=== PATIENT | male | born 1950 | race Caucasian/White ===

== ENCOUNTER → 2016-08-15 | Outpatient (CLI) | payer MEDICARE, OTHER ==
[2016-08-15 12:42] LABS: Anisocytosis Moderate; Aty Lym Flag Slight; CH 34.8; CHCM 30.9; HDW 3.71; HGB 11.6 gm/dL (13.0-17.5); Hypochromasia Marked; MCH 35.1 pg (25.0-35.0); MCHC 31.3 g/dL (31.0-37.0); MCV 111.9 fL (80.0-100.0); Macrocytosis Marked; Mean Platelet Volume 8.3; Poikilocytosis Slight; RBC 3.31 m/uL (4.30-5.90); RDW 21.7 % (11.5-15.5); WBC (Perox) 6.34
[2016-08-15 14:33] LABS: Carbamazepine (Tegretol) 11.5 ug/mL
[2016-08-15 14:38] LABS: Add Differential Manual Differential
[2016-08-15 14:42] LABS: Nucleated Red Blood Cells 1 /100 WBC (0-0); Total Cells Counted 200
[2016-08-15 14:44] LABS: Manual Review Performed; WBC 5.8 k/uL (3.8-10.6)
[2016-08-15 14:45] LABS: Stomatocytes Present
== END ==
LOC: LABWHC1 11:44
PROVIDERS: ATTEND Psychiatry & Neurology Neurology
DX: G40.209 Localization-related (focal) (partial) symptomatic epilepsy and epileptic syndromes with complex partial seizures, not intractable, without status epilepticus (principal)
CPT/HCPCS: 36415; 80156; 80164; 84450; 84460; 85025

== ENCOUNTER 2017-03-02 19:42 | Inpatient (IN) | payer MEDICARE, OTHER ==
--- NOTE | 2017-03-02 22:01 | XR ---
EXAMINATION TYPE: XR chest 1V portable DATE OF EXAM: 03/02/2017 COMPARISON: 07/24/2014 HISTORY: Follow-up pneumothorax TECHNIQUE: Single frontal view of the chest is obtained. FINDINGS: There is general coarsening of interstitial pulmonary markings. I see no pneumothorax. The re is a left chest tube noted at the left lung base.. There are chest leads. Trachea is midline. IMPRESSION: Pulmonary interstitial fibrosis. There is interstitial pulmonary infiltrates with some c oalescence in the left lower lobe that is worse than last exam. No definite pneumothorax seen. Left c hest tube appears in good position.
[2017-03-02] MEDS ORDERED: NALOXONE 0.4 MG/ML 1 ML VIAL IV PRN (22:09)
[2017-03-02] MEDS ORDERED: ACETAMINOPHEN TAB 325 MG TAB PO PRN (22:09)
[2017-03-02] MEDS ORDERED: METOPROLOL SUCCINATE (ER) 25 MG TAB.ER.24H PO STA (22:32)
[2017-03-02] MEDS: HYDROmorphone 1 MG/ML 1 ML SYRINGE IVP PRN (23:20)
[2017-03-02] MEDS: DIVALPROEX 500 MG TABLET.DR PO SCH (23:42)
[2017-03-02] MEDS: carBAMazepine 400 MG TAB.ER.12H PO SCH (23:42)
[2017-03-02] MEDS: HEPARIN SODIUM,PORCINE 5,000 UNIT/ML 1 ML VIAL SQ SCH (23:43)
[2017-03-02 23:52] LABS: Glucose,Whole Blood 173 mg/dL (75-99)
[2017-03-03] MEDS: HYDROcodone/APAP 5-325MG 1 EACH TAB PO PRN ×3 (01:26→21:05)
[2017-03-03 04:47] LABS: INR 1.3 (<1.2); Prothrombin Time 12.8 sec (9.0-12.0)
[2017-03-03 04:49] LABS: Anisocytosis Moderate; CH 34.8; HCT 29.3 % (39.0-53.0); HDW 3.81; HGB 9.3 gm/dL (13.0-17.5); Hypochromasia Marked; MCH 35.5 pg (25.0-35.0); MCHC 31.8 g/dL (31.0-37.0); MCV 111.7 fL (80.0-100.0); Macrocytosis Marked; Mean Platelet Volume 8.1; Poikilocytosis Slight; RBC 2.62 m/uL (4.30-5.90); WBC (Perox) 4.97
[2017-03-03 05:06] LABS: ALT 31 U/L (21-72); AST 15 U/L (17-59); Alkaline Phosphatase 47 U/L (38-126); Anion Gap 7 mmol/L; Blood Urea Nitrogen 27 mg/dL (9-20); Calcium 8.4 mg/dL (8.4-10.2); Carbon Dioxide 22 mmol/L (22-30); Chloride 106 mmol/L (98-107); Glucose 109 mg/dL (74-99); Magnesium 1.6 mg/dL (1.6-2.3); Non-African American GFR(MDRD) >60 (>60 ml/min/1.73 sqM); Phosphorus 4.4 mg/dL (2.5-4.5); Potassium 5.5 mmol/L (3.5-5.1); Sodium 135 mmol/L (137-145); Total Bilirubin 0.3 mg/dL (0.2-1.3)
[2017-03-03 05:22] LABS: Add Differential Manual Differential
[2017-03-03 05:28] LABS: Manual Review Performed; Myelocytes % 2 %; Nucleated Red Blood Cells 2 /100 WBC (0-0); Total Cells Counted 200
[2017-03-03 05:31] LABS: Polychromasia Present; Target Cells Present
[2017-03-03] MEDS ORDERED: Magnesium Replacement Protocol 1 EACH MISC MISCELLANE PRN (05:41)
[2017-03-03] MEDS: SODIUM CHLORIDE 0.9% 1,000 ML IV SCH (06:17)
[2017-03-03] MEDS: MAGNESIUM SULFATE-D5W PMX 1 GM in DEXTROSE/WATER 1 100ML.BAG IVPB SCH ×2 (06:18→07:54)
[2017-03-03 07:27] LABS: Glucose,Whole Blood 207 mg/dL (75-99)
[2017-03-03] MEDS: HEPARIN SODIUM,PORCINE 5,000 UNIT/ML 1 ML VIAL SQ SCH (07:55)
[2017-03-03] MEDS: INSULIN LISPRO (humaLOG) 300 UNIT/3 ML VIAL SQ SCH ×4 (07:55→20:56)
[2017-03-03] MEDS: AZITHROMYCIN 500 MG TAB PO SCH (07:55)
[2017-03-03] MEDS: carBAMazepine 400 MG TAB.ER.12H PO SCH ×2 (07:56→20:57)
[2017-03-03] MEDS: DIVALPROEX 500 MG TABLET.DR PO SCH ×2 (07:56→20:58)
[2017-03-03] MEDS: FAMOTIDINE 20 MG/2 ML VIAL IV SCH ×2 (07:56→20:57)
[2017-03-03] MEDS: BUDESONIDE 0.5 MG/2 ML NEBU INHALATION SCH ×2 (07:57→19:20)
[2017-03-03] MEDS: METOPROLOL SUCCINATE (ER) 25 MG TAB.ER.24H PO SCH (07:57)
[2017-03-03] MEDS: predniSONE 20 MG TAB PO SCH (08:09)
[2017-03-03] MEDS: HYDROmorphone 1 MG/ML 1 ML SYRINGE IVP PRN ×5 (08:10→23:46)
[2017-03-03] MEDS: ENOXAPARIN 40 MG/0.4 ML SYRINGE SQ SCH ×2 (08:10→20:58)
--- NOTE | 2017-03-03 08:26 | P.GSCN ---
<Dennise Galeas - Last Filed: 03/03/17 07:59> History of Present Illness Consult date: 03/03/17 Reason for Consult: Left pneumothorax, left upper lobe nodule, treatment recommendations. Requesting physician: Rico Nazario History of present illness: This 67-year-old gentleman was transferred from [facility] last night. Apparently he had a CT guided lung biopsy by Dr. Nazario, developed a pneumothorax, a pigtail drain was placed and patient was subsequently transferred to [facility] for observation and treatment. He does have a significant history of seizure disorder, chronic atrial fibrillation for which he is on no anticoagulation, myocardial infarction at 38 years old, CVA approximated 12 years ago, colon cancer with resection but no chemotherapy or radiation, right lung nodule which was supposed to be biopsied but the patient did not follow up, and a family history of lung cancer. Per Dr. Nazario the patient was started on Zithromax, ceftriaxone, and prednisone for pneumonia. Cardiothoracic surgery was consulted regarding treatment options for his lung nodule. Review of Systems 14 point review systems was completed and was negative except as noted. - Respiratory Reports cough, Reports dyspnea, Reports hemoptysis, Reports home oxygen - Musculoskeletal Musculoskeleta Comment(s): Minimal residual right-sided weakness post stroke. - Hematologic/Lymphatic Reports easy bleeding Past Medical History Past Medical History: Atrial Fibrillation, Cancer, Chest Pain / Angina, COPD, CVA/TIA, GERD/Reflux, GI Bleed, Hyperlipidemia, Hypertension, Myocardial Infarction (MS), Musculoskeletal Disorder, Renal Disease, Seizure Disorder Additional Past Medical History / Comment(s): 07/21/14 Pt states he was admitted on 07/17/14 and had colonoscopy then laparoscopic sigmoid colectomy for adenocarcinoma was performed on 07/19/14. Other HX: colon cancer found during colonoscopy-polyp which was adenocarcinoma, ULCER; EPILEPTIC - STATES LAST SEIZURE PREV TO 1994; CVA - AFFECTS SPEECH/able to print but not write in cursive. UNABLE TO COMPLETELY CLOSE LEFT HAND R/T hx of LARGE LACERATION. HX OF RT HIP DISORDER, WORE CAST, THEN BRACE FOR 2 YRS, chronic low back pain, renal cysts and kidney stones, GI bleed associated with anticoaulation. Has home O2 which he uses when necessary Last Myocardial Infarction Date:: patient reports 19 years ago History of Any Multi-Drug Resistant Organisms: None Reported Past Surgical History: Orthopedic Surgery Additional Past Surgical History / Comment(s): 07/19/14 Laparoscopic sigmoid colectomy. LEFT HAND SX, EXC VILMA CATARACTS; COLONOSCOPY 05/26/14. Past Anesthesia/Blood Transfusion Reactions: No Reported Reaction Past Psychological History: No Psychological Hx Reported Smoking Status: Former smoker Past Alcohol Use History: Rare Past Drug Use History: None Reported - Past Family History Mother Family Medical History: Cancer Father Family Medical History: CVA/TIA Medications and Allergies Home Medications Medication Instructions Recorded Confirmed Type Budesonide-Formot 160-4.5 Mcg 2 puff INHALATION RT-BID 05/22/14 03/02/17 History [Symbicort 160-4.5 Mcg Inhaler] Divalproex [Depakote] 1,000 mg PO BID 05/22/14 03/02/17 History carBAMazepine [carBAMazepine XR] 400 mg PO BID 05/22/14 03/02/17 History Allergies Allergy/AdvReac Type Severity Reaction Status Date / Time No Known Allergies Allergy Verified 03/02/17 21:42 Surgical - Exam Vital Signs Temp Pulse Resp BP Pulse Ox 98 F 88 18 153/66 94 L 03/02/17 20:58 03/02/17 20:58 03/02/17 20:58 03/02/17 20:58 03/02/17 20:58 - General well developed, well nourished, no distress, no pain - Eyes PERRL, normal ocular movement - ENT no hearing loss - Neck no masses, no bruits, trachea midline - Respiratory Lungs sounds bilaterally. Respirations even, nonlabored. Currently on 4 L nasal cannula with oxygen saturation 98%. Left pigtail chest tube to -20 cm wall suction, initial drainage of 160 mL fluid, no drainage overnight, 15 mL serous fluid in the chest tube chamber this morning. Positive continuous air leak present. - Cardiovascular S1, S2 present. Irregular rate and rhythm, atrial fibrillation on telemetry. Palpable pulses bilaterally, no edema present. - Abdomen Abdomen: soft, non tender, bowel sounds - Genitourinary Deferred. - Rectum Deferred - Integumentary no rash, no growths - Neurologic normal coordination, normal sensation - Psychiatric oriented to time, oriented to person, oriented to place, speech is normal Results - Labs 03/03/17 04:18 03/03/17 04:18 Abnormal Lab Results - Last 24 Hours (Table) 03/02/17 03/03/17 03/03/17 Range/Units 23:50 04:18 04:18 RBC 2.62 L (4.30-5.90) m/uL Hgb 9.3 L (13.0-17.5) gm/dL Hct 29.3 L (39.0-53.0) % MCV 111.7 H (80.0-100.0) fL MCH 35.5 H (25.0-35.0) pg RDW 21.0 H (11.5-15.5) % Lymphocytes # (Manual) 0.76 L (1.0-4.8) k/uL Myelocytes # (Manual) 0.08 H (0) k/uL Nucleated RBCs 2 H (0-0) /100 WBC PT 12.8 H (9.0-12.0) sec INR 1.3 H (<1.2) Sodium (137-145) mmol/L Potassium (3.5-5.1) mmol/L BUN (9-20) mg/dL Glucose (74-99) mg/dL POC Glucose (mg/dL) 173 H (75-99) mg/dL AST (17-59) U/L Total Protein (6.3-8.2) g/dL Albumin (3.5-5.0) g/dL 03/03/17 03/03/17 Range/Units 04:18 07:25 RBC (4.30-5.90) m/uL Hgb (13.0-17.5) gm/dL Hct (39.0-53.0) % MCV (80.0-100.0) fL MCH (25.0-35.0) pg RDW (11.5-15.5) % Lymphocytes # (Manual) (1.0-4.8) k/uL Myelocytes # (Manual) (0) k/uL Nucleated RBCs (0-0) /100 WBC PT (9.0-12.0) sec INR (<1.2) Sodium 135 L (137-145) mmol/L Potassium 5.5 H (3.5-5.1) mmol/L BUN 27 H (9-20) mg/dL Glucose 109 H (74-99) mg/dL POC Glucose (mg/dL) 207 H (75-99) mg/dL AST 15 L (17-59) U/L Total Protein 6.0 L (6.3-8.2) g/dL Albumin 3.1 L (3.5-5.0) g/dL Diabetes panel 03/03/17 Range/Units 04:18 Sodium 135 L (137-145) mmol/L Potassium 5.5 H (3.5-5.1) mmol/L Chloride 106 (98-107) mmol/L Carbon Dioxide 22 (22-30) mmol/L BUN 27 H (9-20) mg/dL Creatinine 0.90 (0.66-1.25) mg/dL Glucose 109 H (74-99) mg/dL Calcium 8.4 (8.4-10.2) mg/dL AST 15 L (17-59) U/L ALT 31 (21-72) U/L Alkaline Phosphatase 47 (38-126) U/L Total Protein 6.0 L (6.3-8.2) g/dL Albumin 3.1 L (3.5-5.0) g/dL Calcium panel 03/03/17 Range/Units 04:18 Calcium 8.4 (8.4-10.2) mg/dL Phosphorus 4.4 (2.5-4.5) mg/dL Albumin 3.1 L (3.5-5.0) g/dL Pituitary panel 03/03/17 Range/Units 04:18 Sodium 135 L (137-145) mmol/L Potassium 5.5 H (3.5-5.1) mmol/L Chloride 106 (98-107) mmol/L Carbon Dioxide 22 (22-30) mmol/L BUN 27 H (9-20) mg/dL Creatinine 0.90 (0.66-1.25) mg/dL Glucose 109 H (74-99) mg/dL Calcium 8.4 (8.4-10.2) mg/dL Adrenal panel 03/03/17 Range/Units 04:18 Sodium 135 L (137-145) mmol/L Potassium 5.5 H (3.5-5.1) mmol/L Chloride 106 (98-107) mmol/L Carbon Dioxide 22 (22-30) mmol/L BUN 27 H (9-20) mg/dL Creatinine 0.90 (0.66-1.25) mg/dL Glucose 109 H (74-99) mg/dL Calcium 8.4 (8.4-10.2) mg/dL Total Bilirubin 0.3 (0.2-1.3) mg/dL AST 15 L (17-59) U/L ALT 31 (21-72) U/L Alkaline Phosphatase 47 (38-126) U/L Total Protein 6.0 L (6.3-8.2) g/dL Albumin 3.1 L (3.5-5.0) g/dL - Imaging Chest x-ray: report reviewed, image reviewed Assessment and Plan (1) Chronic atrial fibrillation Status: Acute (2) Seizure disorder Status: Acute (3) History of colon cancer Status: Acute (4) History of myocardial infarction Status: Acute (5) History of stroke Status: Acute (6) History of GI bleed Status: Acute (7) History of home oxygen therapy Status: Acute (8) Tobacco dependence in remission Status: Acute (9) Family history of lung cancer Status: Acute (10) COPD (chronic obstructive pulmonary disease) Status: Acute Plan: The patient was seen and examined in the intensive care unit. Chart/ diagnostics were reviewed. Medical management per urology/primary care service. Will monitor chest tube output, air leak. Will await pathology results from CT-guided biopsy. Will discuss the case with Dr. Persaud for further recommendations. Thank you Dr. Nazario for this consult. We look forward to working with you in the care of your patient. Time with Patient: Greater than 30 <Gage Jimenez - Last Filed: 03/03/17 14:03> Surgical - Exam Vital Signs Temp Pulse Resp BP Pulse Ox 98 F 88 18 153/66 94 L 03/02/17 20:58 03/02/17 20:58 03/02/17 20:58 03/02/17 20:58 03/02/17 20:58 Results - Labs 03/03/17 04:18 03/03/17 04:18 Abnormal Lab Results - Last 24 Hours (Table) 03/02/17 03/03/17 03/03/17 Range/Units 23:50 04:18 04:18 RBC 2.62 L (4.30-5.90) m/uL Hgb 9.3 L (13.0-17.5) gm/dL Hct 29.3 L (39.0-53.0) % MCV 111.7 H (80.0-100.0) fL MCH 35.5 H (25.0-35.0) pg RDW 21.0 H (11.5-15.5) % Lymphocytes # (Manual) 0.76 L (1.0-4.8) k/uL Myelocytes # (Manual) 0.08 H (0) k/uL Nucleated RBCs 2 H (0-0) /100 WBC PT 12.8 H (9.0-12.0) sec INR 1.3 H (<1.2) Sodium (137-145) mmol/L Potassium (3.5-5.1) mmol/L BUN (9-20) mg/dL Glucose (74-99) mg/dL POC Glucose (mg/dL) 173 H (75-99) mg/dL AST (17-59) U/L Total Protein (6.3-8.2) g/dL Albumin (3.5-5.0) g/dL 03/03/17 03/03/17 03/03/17 Range/Units 04:18 07:25 12:57 RBC (4.30-5.90) m/uL Hgb (13.0-17.5) gm/dL Hct (39.0-53.0) % MCV (80.0-100.0) fL MCH (25.0-35.0) pg RDW (11.5-15.5) % Lymphocytes # (Manual) (1.0-4.8) k/uL Myelocytes # (Manual) (0) k/uL Nucleated RBCs (0-0) /100 WBC PT (9.0-12.0) sec INR (<1.2) Sodium 135 L (137-145) mmol/L Potassium 5.5 H (3.5-5.1) mmol/L BUN 27 H (9-20) mg/dL Glucose 109 H (74-99) mg/dL POC Glucose (mg/dL) 207 H 119 H (75-99) mg/dL AST 15 L (17-59) U/L Total Protein 6.0 L (6.3-8.2) g/dL Albumin 3.1 L (3.5-5.0) g/dL Microbiology - Last 24 Hours (Table) 03/02/17 02:20 Urine Culture - Preliminary Urine,Clean Catch Diabetes panel 03/03/17 03/03/17 Range/Units 04:18 04:18 Sodium 135 L (137-145) mmol/L Potassium 5.5 H (3.5-5.1) mmol/L Chloride 106 (98-107) mmol/L Carbon Dioxide 22 (22-30) mmol/L BUN 27 H (9-20) mg/dL Creatinine 0.90 (0.66-1.25) mg/dL Glucose 109 H (74-99) mg/dL Hemoglobin A1c 4.7 (4.2-6.1) % Calcium 8.4 (8.4-10.2) mg/dL AST 15 L (17-59) U/L ALT 31 (21-72) U/L Alkaline Phosphatase 47 (38-126) U/L Total Protein 6.0 L (6.3-8.2) g/dL Albumin 3.1 L (3.5-5.0) g/dL Calcium panel 03/03/17 Range/Units 04:18 Calcium 8.4 (8.4-10.2) mg/dL Phosphorus 4.4 (2.5-4.5) mg/dL Albumin 3.1 L (3.5-5.0) g/dL Pituitary panel 03/03/17 Range/Units 04:18 Sodium 135 L (137-145) mmol/L Potassium 5.5 H (3.5-5.1) mmol/L Chloride 106 (98-107) mmol/L Carbon Dioxide 22 (22-30) mmol/L BUN 27 H (9-20) mg/dL Creatinine 0.90 (0.66-1.25) mg/dL Glucose 109 H (74-99) mg/dL Calcium 8.4 (8.4-10.2) mg/dL Adrenal panel 03/03/17 Range/Units 04:18 Sodium 135 L (137-145) mmol/L Potassium 5.5 H (3.5-5.1) mmol/L Chloride 106 (98-107) mmol/L Carbon Dioxide 22 (22-30) mmol/L BUN 27 H (9-20) mg/dL Creatinine 0.90 (0.66-1.25) mg/dL Glucose 109 H (74-99) mg/dL Calcium 8.4 (8.4-10.2) mg/dL Total Bilirubin 0.3 (0.2-1.3) mg/dL AST 15 L (17-59) U/L ALT 31 (21-72) U/L Alkaline Phosphatase 47 (38-126) U/L Total Protein 6.0 L (6.3-8.2) g/dL Albumin 3.1 L (3.5-5.0) g/dL Assessment and Plan Plan: The patient was seen and examined. I agree with the above assessment and plan. Per report, he has a left lower lobe pulmonary lesion. A CT-guided biopsy was performed at [facility]. Follow-up chest x-ray revealed a pneumothorax. A pigtail catheter was initially placed. This morning the pneumothorax progressed and a chest tube was placed by Dr. Nazario. Follow-up chest x-ray reveals re-expansion of the lung. An air leak is present. We will keep the chest tube to suction for now. We are awaiting results of the biopsy performed at [facility]. Further recommendations will follow.
[2017-03-03] MEDS ORDERED: predniSONE 50 MG TAB PO SCH (09:00)
--- NOTE | 2017-03-03 09:03 | XR ---
EXAMINATION TYPE: XR chest 1V DATE OF EXAM: 03/03/2017 COMPARISON: 03/02/2017 HISTORY: Chest tube TECHNIQUE: Single frontal view of the chest is obtained. FINDINGS: Spiculated nodule in the left upper lobe. Coarsened interstitium compatible with chronic p ulmonary fibrosis and underlying COPD. There is a left-sided chest tube with evidence of an approxima te 15 % pneumothorax. Volume loss on the right is stable. Small amount subcutaneous emphysema. IMPRESSION: 1. Interval increase in size of pneumothorax measuring approximately 15%.
--- NOTE | 2017-03-03 11:31 | XR ---
EXAMINATION TYPE: XR chest 1V portable DATE OF EXAM: 03/03/2017 COMPARISON: NONE HISTORY: Left-sided pneumothorax TECHNIQUE: Single frontal view of the chest is obtained. FINDINGS: There is interval increase in the degree of left-sided pneumothorax, greater than 50% with midline shift to the right. Left-sided pigtail catheter is in place with subcutaneous emphysema millie g the left lateral chest wall. Low lung volumes seen on the right with multifocal linear scattered co mpressive atelectasis. Cardia mediastinal silhouette is within normal limits. IMPRESSION: Large interval increase in size of the left-sided pneumothorax with pigtail catheter in place and new mediastinal shift. Pneumothorax is greater than 50%. Findings were discussed with the [facility] nurse who indicated a large-bore thoracostomy tube has been placed and patient is currently being reimaged.
--- NOTE | 2017-03-03 11:33 | P.PCN ---
Date of Procedure: 03/03/17 Preoperative Diagnosis: tension pntx, acute hypoxic respiratory failure Postoperative Diagnosis: as above Procedure(s) Performed: Left tube thoracostomy/chest tube Anesthesia: local Surgeon: Rico Nazario Estimated Blood Loss (ml): 5 Pathology: none sent Condition: critical Disposition: ICU Indications for Procedure: as above Operative Findings: see below Description of Procedure: procedure explained to patient cxr finding reviewed, 1% lidocaine use for local ansthesia, 2 cms horizontal incision made left lateral thoracic wall, post axillary line, blunt dissection performed thru intercotal muscles pleural space accessed, one intercostal space above, 28 frennch Chest tube inserted into pleural space trocar withdrawn, tube advanced towards apex sutured with 1 silk, pt. tolerated well, no complication noted, post procedure cxr good position of CT, Tension PNTX RESOLVED
--- NOTE | 2017-03-03 11:55 | XR ---
EXAMINATION TYPE: XR chest 1V portable DATE OF EXAM: 03/03/2017 COMPARISON: 03/03/2017 HISTORY: Repositioned chest tube TECHNIQUE: Single frontal view of the chest is obtained. FINDINGS: There is resolution of the left-sided pneumothorax with the moderate amount of subcutaneou s emphysema. Chronic interstitial lung disease again noted. Tiny right pleural effusion. Left upper l obe spiculated nodule stable. IMPRESSION: 1. No sizable pneumothorax post chest tube insertion. Extensive subcutaneous emphysema.
[2017-03-03 12:22] LABS: Hemoglobin A1C 4.7 % (4.2-6.1)
[2017-03-03 12:59] LABS: Glucose,Whole Blood 119 mg/dL (75-99)
[2017-03-03 17:27] LABS: Glucose,Whole Blood 86 mg/dL (75-99)
[2017-03-03 20:55] LABS: Glucose,Whole Blood 116 mg/dL (75-99)
--- NOTE | 2017-03-03 21:39 | P.HPIM ---
History of Present Illness H&P Date: 03/03/17 Chief Complaint: Left-sided pneumothorax Patient is a 67-year-old male with a known history of chronic atrial fibrillation not on any anticoagulation, seizure disorder, history of CVA/TIA, history of colon cancer status post resection and history of UT and GERD and left lung nodule who underwent CT-guided biopsy at [facility]. Patient subsequently developed tension pneumothorax and pigtail catheter and was transferred to [facility] for further evaluation by CTsurgery for the treatment of lung nodule. Patient was laced with left-sided chest tube currently. Patient is also on antibiotics for pneumonia treatment. Pulmonary and CT surgery is following this patient. Currently patient denied any worsening chest pain or short of breath. Pain is fairly controlled with pain medications. No fever no chills. Chest x-ray showed resolution of pneumothorax. Interstitial infiltrates in the left lower lobe as well as pulmonary fibrosis. Review of Systems CONSTITUTIONAL: No fever, no malaise, no fatigue. HEENT: No recent visual problems or hearing problems. Denied any sore throat. CARDIOVASCULAR: No chest pain, orthopnea, PND, no palpitations, no syncope. PULMONARY: , Patient does have short of breath and left-sided chest pain. Cough without sputum. no hemoptysis. GASTROINTESTINAL: No diarrhea, no nausea, no vomiting, no abdominal pain. Normoactive bowel sounds. NEUROLOGICAL: No headaches, no weakness, no numbness. HEMATOLOGICAL: Denies any bleeding or petechiae. GENITOURINARY: Denies any burning micturition, frequency, or urgency. MUSCULOSKELETAL/RHEUMATOLOGICAL: Denies any joint pain, swelling, or any muscle pain. ENDOCRINE: Denies any polyuria or polydipsia. The rest of the 14-point review of systems is negative. Past Medical History Past Medical History: Atrial Fibrillation, Cancer, Chest Pain / Angina, COPD, CVA/TIA, GERD/Reflux, GI Bleed, Hyperlipidemia, Hypertension, Myocardial Infarction (UT), Musculoskeletal Disorder, Renal Disease, Seizure Disorder Additional Past Medical History / Comment(s): 07/21/14 Pt states he was admitted on 07/17/14 and had colonoscopy then laparoscopic sigmoid colectomy for adenocarcinoma was performed on 07/19/14. Other HX: colon cancer found during colonoscopy-polyp which was adenocarcinoma, ULCER; EPILEPTIC - STATES LAST SEIZURE PREV TO 1994; CVA - AFFECTS SPEECH/able to print but not write in cursive. UNABLE TO COMPLETELY CLOSE LEFT HAND R/T hx of LARGE LACERATION. HX OF RT HIP DISORDER, WORE CAST, THEN BRACE FOR 2 YRS, chronic low back pain, renal cysts and kidney stones, GI bleed associated with anticoaulation. Has home O2 which he uses when necessary Last Myocardial Infarction Date:: patient reports 19 years ago History of Any Multi-Drug Resistant Organisms: None Reported Past Surgical History: Orthopedic Surgery Additional Past Surgical History / Comment(s): 07/19/14 Laparoscopic sigmoid colectomy. LEFT HAND SX, EXC VILMA CATARACTS; COLONOSCOPY 05/26/14. Past Anesthesia/Blood Transfusion Reactions: No Reported Reaction Past Psychological History: No Psychological Hx Reported Smoking Status: Former smoker Past Alcohol Use History: Rare Past Drug Use History: None Reported - Past Family History Father Family Medical History: CVA/TIA Mother Family Medical History: Cancer Medications and Allergies Home Medications Medication Instructions Recorded Confirmed Type Budesonide-Formot 160-4.5 Mcg 2 puff INHALATION RT-BID 05/22/14 03/02/17 History [Symbicort 160-4.5 Mcg Inhaler] Divalproex [Depakote] 1,000 mg PO BID 05/22/14 03/02/17 History carBAMazepine [carBAMazepine XR] 400 mg PO BID 05/22/14 03/02/17 History Allergies Allergy/AdvReac Type Severity Reaction Status Date / Time No Known Allergies Allergy Verified 03/02/17 21:42 Physical Exam Vitals: Vital Signs Temp Pulse Pulse Resp BP BP Pulse Ox 03/03/17 12:30 90 19 151/80 98 03/03/17 12:00 97.4 F L 84 88 35 H 159/108 98 03/03/17 11:30 87 22 177/79 100 03/03/17 11:00 106 H 37 H 175/79 99 03/03/17 10:30 94 24 159/85 84 L 03/03/17 10:00 85 31 H 141/64 94 L 03/03/17 09:30 83 16 137/84 97 03/03/17 09:00 80 23 141/69 89 L 03/03/17 08:30 80 19 141/71 93 L 03/03/17 08:00 96.8 F L 95 88 21 151/82 95 03/03/17 07:30 78 30 H 138/72 97 03/03/17 07:00 78 30 H 147/68 97 03/03/17 06:30 94 27 H 127/73 99 03/03/17 06:00 80 12 130/76 98 03/03/17 05:30 74 13 132/75 98 03/03/17 05:00 90 16 141/92 97 03/03/17 04:30 83 28 H 141/79 97 03/03/17 04:00 81 88 16 131/63 95 03/03/17 03:30 90 12 127/75 95 03/03/17 03:00 83 17 155/89 96 03/03/17 02:40 108 H 14 140/66 94 L 03/03/17 02:30 102 H 26 H 140/66 99 03/03/17 02:00 98 32 H 124/77 98 03/03/17 01:30 80 16 143/72 97 03/03/17 01:20 100 16 164/75 97 03/03/17 01:10 89 14 164/75 97 03/03/17 01:00 92 19 164/75 96 03/03/17 00:50 114 H 24 139/79 97 03/03/17 00:40 103 H 19 139/79 97 03/03/17 00:30 90 23 139/79 97 03/03/17 00:20 94 22 128/74 96 03/03/17 00:10 94 14 128/74 97 03/03/17 00:00 112 H 88 16 128/74 95 03/02/17 23:50 100 16 112/61 97 03/02/17 23:40 86 13 112/61 97 03/02/17 23:30 107 H 29 H 112/61 95 03/02/17 23:10 101 H 26 H 153/66 93 L 03/02/17 23:00 102 H 34 H 153/66 97 03/02/17 22:50 111 H 29 H 159/87 96 03/02/17 22:41 99 37 H 159/87 96 03/02/17 22:40 104 H 41 H 159/87 96 03/02/17 22:30 102 H 40 H 159/87 94 L 03/02/17 22:20 100 22 154/80 96 03/02/17 22:10 90 22 154/80 95 03/02/17 22:00 93 16 154/80 96 03/02/17 21:50 98 25 H 144/78 97 03/02/17 21:40 114 H 20 144/78 93 L 03/02/17 21:30 107 H 14 144/78 93 L 03/02/17 21:20 108 H 173/89 94 L 03/02/17 21:10 107 H 173/89 95 03/02/17 21:00 96.7 F L 109 H 26 H 173/89 94 L 03/02/17 20:58 98 F 126 H 88 18 153/66 94 L Intake and Output 03/03/17 03/03/17 03/03/17 06:59 14:59 22:59 Intake Total 780 120 Output Total 1750 450 Balance -970 -330 Intake: IV 280 120 Sodium Chloride 0.9% 1, 180 120 000 ml @ 20 mls/hr IV . Q24H [facility] Rx#:[id number] magnesium sulfate 100 Oral 500 Output: Chest Tube Drainage 0 0 left chest 0 0 Urine 1750 450 Other: # Voids 1 Weight 78.6 kg PHYSICAL EXAMINATION: Patient is lying in the bed comfortably, no acute distress, awake alert and oriented.. HEENT: Normocephalic. Neck is supple. Pupils reactive. Nostrils clear. Oral cavity is moist. Ears reveal no drainage. Neck reveals no JVD, carotid bruits, or thyromegaly. CHEST EXAMINATION: Trachea is central. Symmetrical expansion. Left-sided basilar crackles and decreased breath sounds. Left-sided chest tube in place with suction. Tenderness with palpation. CARDIAC: Normal S1, S2 with no gallops. No murmurs ABDOMEN: Soft. Bowel sounds normal. No organomegaly. No abdominal bruits. Extremities reveal no edema. No clubbing or cyanosis Neurologically awake, alert, oriented x3 with well-coordinated movements. Skin: no rash or skin lesions Musculoskeletal: no joint swelling or deformity. Results CBC & Chem 7: 03/03/17 04:18 03/03/17 04:18 Labs: Abnormal Lab Results - Last 24 Hours (Table) 03/02/17 03/03/17 03/03/17 Range/Units 23:50 04:18 04:18 RBC 2.62 L (4.30-5.90) m/uL Hgb 9.3 L (13.0-17.5) gm/dL Hct 29.3 L (39.0-53.0) % MCV 111.7 H (80.0-100.0) fL MCH 35.5 H (25.0-35.0) pg RDW 21.0 H (11.5-15.5) % Lymphocytes # (Manual) 0.76 L (1.0-4.8) k/uL Myelocytes # (Manual) 0.08 H (0) k/uL Nucleated RBCs 2 H (0-0) /100 WBC PT 12.8 H (9.0-12.0) sec INR 1.3 H (<1.2) Sodium (137-145) mmol/L Potassium (3.5-5.1) mmol/L BUN (9-20) mg/dL Glucose (74-99) mg/dL POC Glucose (mg/dL) 173 H (75-99) mg/dL AST (17-59) U/L Total Protein (6.3-8.2) g/dL Albumin (3.5-5.0) g/dL 03/03/17 03/03/17 03/03/17 Range/Units 04:18 07:25 12:57 RBC (4.30-5.90) m/uL Hgb (13.0-17.5) gm/dL Hct (39.0-53.0) % MCV (80.0-100.0) fL MCH (25.0-35.0) pg RDW (11.5-15.5) % Lymphocytes # (Manual) (1.0-4.8) k/uL Myelocytes # (Manual) (0) k/uL Nucleated RBCs (0-0) /100 WBC PT (9.0-12.0) sec INR (<1.2) Sodium 135 L (137-145) mmol/L Potassium 5.5 H (3.5-5.1) mmol/L BUN 27 H (9-20) mg/dL Glucose 109 H (74-99) mg/dL POC Glucose (mg/dL) 207 H 119 H (75-99) mg/dL AST 15 L (17-59) U/L Total Protein 6.0 L (6.3-8.2) g/dL Albumin 3.1 L (3.5-5.0) g/dL Microbiology - Last 24 Hours (Table) 03/02/17 02:20 Urine Culture - Preliminary Urine,Clean Catch Thrombosis Risk Factor Assmnt - DVT/VTE Prophylaxis DVT/VTE Prophylaxis: Pharmacologic Prophylaxis ordered - Choose All That Apply Any of the Below Risk Factors Present?: Yes Each Factor Represents 1 point: Serious lung disease incl. pneumonia (< 1month) Each Risk Factor Represents 2 Points: Age 61-74 years Other congenital or acquired thrombophilia - If yes, enter type in comment: No Thrombosis Risk Factor Assessment Total Risk Factor Score: 3 Thrombosis Risk Factor Assessment Level: Moderate Risk Assessment and Plan Plan: Left lower lobe lung nodule status post CT-guided biopsy Left-sided pneumothorax followed by biopsy. Macrocytic anemia Hypovolemic hyponatremia COPD with mild exacerbation History of colon cancer status post resection History of UT Family history of colon cancer GERD Chronic atrial fibrillation. Currently not on anticoagulation. Noncompliance with follow-up and medications History of CVA with dysarthria and left upper extremity weakness. DVT prophylaxis Plan: Patient will be continued on chest tube with suction. Continue with breathing treatments as needed. CT surgery and pulmonary is following this patient. Chest x-ray showed improvement in pneumothorax. Continue with the pain management and follow closely. Awaiting biopsy report done at [facility]. Further recommendations based on the clinical course. Prognosis is guarded. Time with Patient: Greater than 30
[2017-03-04] MEDS: SODIUM CHLORIDE 0.9% 1,000 ML IV SCH ×2 (01:32→23:00)
[2017-03-04] MEDS: HYDROcodone/APAP 5-325MG 1 EACH TAB PO PRN ×3 (02:24→13:38)
--- NOTE | 2017-03-04 04:23 | XR ---
EXAM: XR Chest, 1 View CLINICAL HISTORY: Reason: pneumothorax. Chest tube replacement. TECHNIQUE: Frontal view of the chest. COMPARISON: 03/03/17 FINDINGS: Left chest tube in place. No pneumothorax is seen. Patchy right perihilar infiltrates and left base infiltrates are not significant changed. Heart and pulmonary vasculature are normal. The continues emphysema noted over the left chest wall. Osseous structures intact. IMPRESSION: Left chest tube in place. No pneumothorax is seen. Stable right perihilar and left base infiltrates.
[2017-03-04 04:57] LABS: Anisocytosis Moderate; Aty Lym Flag Slight; CH 35.1; CHCM 31.6; HCT 30.6 % (39.0-53.0); HDW 3.71; HGB 9.6 gm/dL (13.0-17.5); Hypochromasia Moderate; MCH 34.8 pg (25.0-35.0); MCHC 31.5 g/dL (31.0-37.0); MCV 110.7 fL (80.0-100.0); Macrocytosis Marked; Mean Platelet Volume 8.9; Poikilocytosis Slight; RBC 2.76 m/uL (4.30-5.90); RDW 21.5 % (11.5-15.5); WBC (Perox) 6.67
[2017-03-04 05:04] LABS: INR 1.3 (<1.2); Prothrombin Time 12.5 sec (9.0-12.0)
[2017-03-04] MEDS: HYDROmorphone 1 MG/ML 1 ML SYRINGE IVP PRN ×5 (05:07→20:36)
[2017-03-04 05:08] LABS: ALT 26 U/L (21-72); AST 15 U/L (17-59); Alkaline Phosphatase 52 U/L (38-126); Anion Gap 9 mmol/L; Blood Urea Nitrogen 27 mg/dL (9-20); Calcium 8.2 mg/dL (8.4-10.2); Carbon Dioxide 22 mmol/L (22-30); Chloride 101 mmol/L (98-107); Glucose 94 mg/dL (74-99); Magnesium 1.7 mg/dL (1.6-2.3); Non-African American GFR(MDRD) >60 (>60 ml/min/1.73 sqM); Phosphorus 3.6 mg/dL (2.5-4.5); Potassium 4.7 mmol/L (3.5-5.1); Sodium 132 mmol/L (137-145); Total Bilirubin 0.5 mg/dL (0.2-1.3)
[2017-03-04 05:54] LABS: Vitamin B12 893 pg/mL
[2017-03-04 05:56] LABS: Add Differential Manual Differential
[2017-03-04 06:02] LABS: Band Neutrophils % 1 %; Manual Review Performed; Nucleated Red Blood Cells 1 /100 WBC (0-0); Total Cells Counted 200; WBC 6.5 k/uL (3.8-10.6)
[2017-03-04 06:04] LABS: Polychromasia Present
[2017-03-04] MEDS: MAGNESIUM SULFATE-D5W PMX 1 GM in DEXTROSE/WATER 1 100ML.BAG IVPB SCH ×2 (06:48→08:53)
[2017-03-04 06:53] LABS: Glucose,Whole Blood 84 mg/dL (75-99)
[2017-03-04] MEDS: IPRATROPIUM-ALBUTEROL 3 ML NEB INHALATION PRN ×3 (07:53→19:06)
[2017-03-04] MEDS: BUDESONIDE 0.5 MG/2 ML NEBU INHALATION SCH ×2 (07:53→19:06)
--- NOTE | 2017-03-04 08:14 | P.CNPUL ---
History of Present Illness Consult date: 03/03/17 Reason for consult: dyspnea, cough, hypoxemia, pneumonia, pneumothorax, abnormal CXR/CT Chief complaint: large left pneumothorax and left upper nodule History of present illness: Mr. Rendon is a 67-year-old male with history of severe COPD emphysema and chronic persistent asthma patient also has history of chronic atrial fibrillation and has been attempted on anticoagulants but couldn't tolerate it because of the GI bleeding has been off of blood thinners patient is somewhat unreliable in terms of follow-up he does have a history of prior pneumonia and right-sided nodule however that did resolve though. Patient was sent from the primary care provider to my office with ongoing hemoptysis and also found to have abnormal chest x-ray and CAT scan in fact patient had a PET scan as well which revealed positive uptake in the left upper lobe nodule which was new. Patient also found to have a left upper lobe and right lower lobe infiltrate suggestive of pneumonia given the severe respiratory status patient was considered not to be a candidate for bronchoscopy and biopsies options were discussed with him to optimize therapy and decision was done to admit the patient into the hospital to treat the pneumonia and consideration of biopsy and along the same time. Patient did respond well with the antibiotics with improvement in respiratory status and hemoptysis however interventional radiology was consulted for CT-guided biopsy of left upper lobe nodule they initially attempted a small lymph node on the neck in cervical area which was nondiagnostic followed by CT-guided biopsy of left upper lobe nodule. Patient did have left the pneumothorax which was progressive and eventually giving appearance of a tension pneumothorax requiring emergent placement of a small bore chest tube by interventional radiology the pneumothorax resolved only a small residual 5% pneumothorax was seen subsequent x-ray performed in the afternoon. At that time decision was done to monitor observe and patent patient to be transferred to [facility] for further evaluation and intervention and treatment and possible resection of left upper lobe nodule Review of Systems Constitutional: Reports as per HPI, Reports anorexia, Reports chronic pain, Reports fatigue, Reports malaise, Reports sweats, Reports weakness Eyes: denies as per HPI, denies blurred vision, denies bulging eye, denies decreased vision, denies diplopia, denies discharge, denies dry eye, denies irritation, denies itching, denies pain, denies photophobia, denies loss of peripheral vision, denies loss of vision, denies tunnel vision/blind spots Ears: deny: decreased hearing, ear discharge, earache, tinnitus Ears, nose, mouth and throat: Reports as per HPI Cardiovascular: Reports as per HPI, Reports chest pain, Reports irregular heart beat, Reports orthopnea, Reports palpitations, Reports shortness of breath Respiratory: Reports as per HPI, Reports congestion, Reports cough, Reports cough with sputum, Reports dyspnea, Reports excessive sputum, Reports hemoptysis , Reports pain, Reports wheezing Gastrointestinal: Reports as per HPI Genitourinary: Reports as per HPI Musculoskeletal: Reports as per HPI Integumentary: Reports as per HPI Neurological: Reports as per HPI Psychiatric: Reports as per HPI Endocrine: Reports as per HPI Hematologic/Lymphatic: Reports as per HPI Allergic/Immunologic: Reports as per HPI Past Medical History Past Medical History: Atrial Fibrillation, Cancer, Chest Pain / Angina, COPD, CVA/TIA, GERD/Reflux, GI Bleed, Hyperlipidemia, Hypertension, Myocardial Infarction ([place]), Musculoskeletal Disorder, Renal Disease, Seizure Disorder Additional Past Medical History / Comment(s): 07/21/14 Pt states he was admitted on 07/17/14 and had colonoscopy then laparoscopic sigmoid colectomy for adenocarcinoma was performed on 07/19/14. Other HX: colon cancer found during colonoscopy-polyp which was adenocarcinoma, ULCER; EPILEPTIC - STATES LAST SEIZURE PREV TO 1994; CVA - AFFECTS SPEECH/able to print but not write in cursive. UNABLE TO COMPLETELY CLOSE LEFT HAND R/T hx of LARGE LACERATION. HX OF RT HIP DISORDER, WORE CAST, THEN BRACE FOR 2 YRS, chronic low back pain, renal cysts and kidney stones, GI bleed associated with anticoaulation. Has home O2 which he uses when necessary Last Myocardial Infarction Date:: patient reports 19 years ago History of Any Multi-Drug Resistant Organisms: None Reported Past Surgical History: Orthopedic Surgery Additional Past Surgical History / Comment(s): 07/19/14 Laparoscopic sigmoid colectomy. LEFT HAND SX, EXC VILMA CATARACTS; COLONOSCOPY 05/26/14. Past Anesthesia/Blood Transfusion Reactions: No Reported Reaction Past Psychological History: No Psychological Hx Reported Smoking Status: Former smoker Past Alcohol Use History: Rare Past Drug Use History: None Reported - Past Family History Father Family Medical History: CVA/TIA Mother Family Medical History: Cancer Medications and Allergies Home Medications Medication Instructions Recorded Confirmed Type Budesonide-Formot 160-4.5 Mcg 2 puff INHALATION RT-BID 05/22/14 03/02/17 History [Symbicort 160-4.5 Mcg Inhaler] Divalproex [Depakote] 1,000 mg PO BID 05/22/14 03/02/17 History carBAMazepine [carBAMazepine XR] 400 mg PO BID 05/22/14 03/02/17 History Allergies Allergy/AdvReac Type Severity Reaction Status Date / Time No Known Allergies Allergy Verified 03/02/17 21:42 Physical Exam Vitals: Vital Signs Temp Pulse Pulse Resp BP BP Pulse Ox 03/03/17 07:00 78 30 H 147/68 97 03/03/17 06:30 94 27 H 127/73 99 03/03/17 06:00 80 12 130/76 98 03/03/17 05:30 74 13 132/75 98 03/03/17 05:00 90 16 141/92 97 03/03/17 04:30 83 28 H 141/79 97 03/03/17 04:00 81 88 16 131/63 95 03/03/17 03:30 90 12 127/75 95 03/03/17 03:00 83 17 155/89 96 03/03/17 02:40 108 H 14 140/66 94 L 03/03/17 02:30 102 H 26 H 140/66 99 03/03/17 02:00 98 32 H 124/77 98 03/03/17 01:30 80 16 143/72 97 03/03/17 01:20 100 16 164/75 97 03/03/17 01:10 89 14 164/75 97 03/03/17 01:00 92 19 164/75 96 03/03/17 00:50 114 H 24 139/79 97 03/03/17 00:40 103 H 19 139/79 97 03/03/17 00:30 90 23 139/79 97 03/03/17 00:20 94 22 128/74 96 03/03/17 00:10 94 14 128/74 97 03/03/17 00:00 112 H 88 16 128/74 95 03/02/17 23:50 100 16 112/61 97 03/02/17 23:40 86 13 112/61 97 03/02/17 23:30 107 H 29 H 112/61 95 03/02/17 23:10 101 H 26 H 153/66 93 L 03/02/17 23:00 102 H 34 H 153/66 97 03/02/17 22:50 111 H 29 H 159/87 96 03/02/17 22:41 99 37 H 159/87 96 03/02/17 22:40 104 H 41 H 159/87 96 03/02/17 22:30 102 H 40 H 159/87 94 L 03/02/17 22:20 100 22 154/80 96 03/02/17 22:10 90 22 154/80 95 03/02/17 22:00 93 16 154/80 96 03/02/17 21:50 98 25 H 144/78 97 03/02/17 21:40 114 H 20 144/78 93 L 03/02/17 21:30 107 H 14 144/78 93 L 03/02/17 21:20 108 H 173/89 94 L 03/02/17 21:10 107 H 173/89 95 03/02/17 21:00 96.7 F L 109 H 26 H 173/89 94 L 03/02/17 20:58 98 F 126 H 88 18 153/66 94 L Intake and Output 03/02/17 03/03/17 03/03/17 22:59 06:59 14:59 Intake Total 280 780 20 Output Total 310 1750 0 Balance -30 -970 20 Intake: IV 280 20 Sodium Chloride 0.9% 1, 180 20 000 ml @ 20 mls/hr IV . Q24H [facility] Rx#:[id number] magnesium sulfate 100 Intake, IV Titration 40 Amount Sodium Chloride 0.9% 1, 40 000 ml @ 20 mls/hr IV . Q24H [facility] Rx#:[id number] Oral 240 500 Output: Chest Tube Drainage 160 0 0 left chest 160 0 0 Urine 150 1750 0 Other: # Voids 1 Weight 79.3 kg 78.6 kg - Constitutional General appearance: cooperative, disheveled, mild distress - EENT Eyes: EOMI, PERRLA, normal appearance Ears: bilateral: normal - Neck Neck: normal ROM Carotids: bilateral: upstroke normal, bruit absent Thyroid: negative: normal size - Respiratory Respiratory: bilateral: diminished, rhonchi, wheezing, prolonged expiration - Cardiovascular Rhythm: irregularly irregular Heart sounds: normal: S1, S2 - Gastrointestinal General gastrointestinal: decreased bowel sounds, normal bowel sounds, soft - Integumentary Integumentary: normal, normal turgor - Neurologic Neurologic: CNII-XII intact - Musculoskeletal Musculoskeletal: gait normal, generalized weakness, strength equal bilaterally - Psychiatric Psychiatric: A&O x's 3, appropriate affect, intact judgment & insight Results - Laboratory Findings CBC and BMP: 03/03/17 04:18 03/03/17 04:18 PT/INR, D-dimer PT 12.8 sec (9.0-12.0) H 03/03/17 04:18 INR 1.3 (<1.2) H 03/03/17 04:18 Abnormal lab findings: Abnormal Labs 03/02/17 03/03/17 03/03/17 23:50 04:18 04:18 RBC 2.62 L Hgb 9.3 L Hct 29.3 L MCV 111.7 H MCH 35.5 H RDW 21.0 H Lymphocytes # (Manual) 0.76 L Myelocytes # (Manual) 0.08 H Nucleated RBCs 2 H PT 12.8 H INR 1.3 H Sodium Potassium BUN Glucose POC Glucose (mg/dL) 173 H AST Total Protein Albumin 03/03/17 03/03/17 04:18 07:25 RBC Hgb Hct MCV MCH RDW Lymphocytes # (Manual) Myelocytes # (Manual) Nucleated RBCs PT INR Sodium 135 L Potassium 5.5 H BUN 27 H Glucose 109 H POC Glucose (mg/dL) 207 H AST 15 L Total Protein 6.0 L Albumin 3.1 L - Diagnostic Findings Chest x-ray: report reviewed, image reviewed (Chest x-ray from yesterday and today has been reviewed and compared with prior x-rays the left upper lobe nodule remains stable left-sided pneumothorax is resolved small subcu emphysema on left thoracic wall is seen these pigtail catheter in the left lower thoracic cavity is stable which continued to drain a year with air bubbles present in the pleural VAC) Assessment and Plan Plan: Bilateral pneumonia with hemoptysis Left upper lobe nodule Left-sided iatrogenic tension pneumothorax status post left-sided chest tube Severe COPD with chronic hypoxic respiratory failure Chronic atrial fibrillation Plan is to monitor observe patient in ICU thoracic surgery consultation has been obtained patient's is to be evaluated for VATS procedure for left upper lobe nodule resection and possible pleurodesis. we'll do a bedside spirometry patient is being started on subcu Lovenox will continue the antibiotics breathing treatment was start tapering down the steroids patient will be kept on peptic ulcer disease prophylaxis and supportive care care plan discussed with the nursing staff at length. Time with Patient: Greater than 30
--- NOTE | 2017-03-04 08:17 | P.PN ---
Subjective Principal diagnosis: Tension pneumothorax, left upper lobe mass, bilateral pneumonia, chronic hypoxic respiratory failure, severe COPD andemphysema, hemoptysis 03/04/2017, patient seen and evaluated examined in ICU he is awake and alert breathing relatively comfortably would get anxious and agitated events from yesterday and last night has been noted, patient to have left left tension pneumothorax as the prior pigtail rest tube was plugged requiring emergent placement off a new 28-[place] chest tube by me in a stable position. Able to evacuate the tension pneumothorax no more bubbling was seen however patient was trying to get up late last night and to use the urinal disconnected himself over the chest tube developed shortness of breath later on the tube has been reconnected by nurse staff had no more air leak is seen in the pleural VAC. Patient has episodes of intermittent anxiety we will start him on low-dose Xanax patient had low magnesium which is being repleted he is on diet tolerated well patient has been evaluated by Dr. Persaud from thoracic surgery awaiting biopsy results with further interventions pending. His chest x-ray from earlier this morning reviewed no pneumothorax is seen chest tube was stable the right perihilar pneumonia and left lower lobe pneumonia not much change overall stable on antibiotics His labs from today's reviewed borderline hyponatremia noted he is anemic with hemoglobin of 9.6 we'll monitor observe closely Critical care time spent 35 minutes Mr. Rendon is a 67-year-old male with history of severe COPD emphysema and chronic persistent asthma patient also has history of chronic atrial fibrillation and has been attempted on anticoagulants but couldn't tolerate it because of the GI bleeding has been off of blood thinners patient is somewhat unreliable in terms of follow-up he does have a history of prior pneumonia and right-sided nodule however that did resolve though. Patient was sent from the primary care provider to my office with ongoing hemoptysis and also found to have abnormal chest x-ray and CAT scan in fact patient had a PET scan as well which revealed positive uptake in the left upper lobe nodule which was new. Patient also found to have a left upper lobe and right lower lobe infiltrate suggestive of pneumonia given the severe respiratory status patient was considered not to be a candidate for bronchoscopy and biopsies options were discussed with him to optimize therapy and decision was done to admit the patient into the hospital to treat the pneumonia and consideration of biopsy and along the same time. Patient did respond well with the antibiotics with improvement in respiratory status and hemoptysis however interventional radiology was consulted for CT-guided biopsy of left upper lobe nodule they initially attempted a small lymph node on the neck in cervical area which was nondiagnostic followed by CT-guided biopsy of left upper lobe nodule. Patient did have left the pneumothorax which was progressive and eventually giving appearance of a tension pneumothorax requiring emergent placement of a small bore chest tube by interventional radiology the pneumothorax resolved only a small residual 5% pneumothorax was seen subsequent x-ray performed in the afternoon. At that time decision was done to monitor observe and patent patient to be transferred to [facility] for further evaluation and intervention and treatment and possible resection of left upper lobe nodule Objective - Vital Signs Vital signs: Vital Signs Temp 98.1 F 03/04/17 00:00 Pulse 87 03/04/17 08:06 Resp 15 03/04/17 07:00 BP 148/86 03/04/17 05:30 Pulse Ox 97 03/04/17 07:58 Intake & Output 03/03/17 03/04/17 03/04/17 18:59 06:59 18:59 Intake Total 220 490 20 Output Total 765 1501 55 Balance -545 -1011 -35 Weight 78.7 kg Intake: IV 220 250 20 Sodium Chloride 0.9% 1, 220 250 20 000 ml @ 20 mls/hr IV . Q24H [facility] Rx#:[id number] Oral 240 Output: Chest Tube Drainage 15 86 5 left chest 15 86 5 Urine 750 1415 50 Other: Voiding Method Indwelling Catheter # Voids 0 # Bowel Movements 0 - Exam - Constitutional General appearance: cooperative, disheveled, mild distress - EENT Eyes: EOMI, PERRLA, normal appearance Ears: bilateral: normal - Neck Neck: normal ROM Carotids: bilateral: upstroke normal, bruit absent Thyroid: negative: normal size - Respiratory Respiratory: bilateral: diminished, rhonchi, wheezing, prolonged expiration, no significant subcu emphysema is seen, no more bubbling noted on chest tube air column moves fairly well with respiration and pleural VAC - Cardiovascular Rhythm: irregularly irregular Heart sounds: normal: S1, S2 - Gastrointestinal General gastrointestinal: decreased bowel sounds, normal bowel sounds, soft - Integumentary Integumentary: normal, normal turgor - Neurologic Neurologic: CNII-XII intact - Musculoskeletal Musculoskeletal: gait normal, generalized weakness, strength equal bilaterally - Psychiatric Psychiatric: A&O x's 3, appropriate affect, intact judgment & insight - Labs CBC & Chem 7: 03/04/17 04:27 03/04/17 04:27 Labs: Abnormal Lab Results - Last 24 Hours (Table) 03/03/17 03/03/17 03/04/17 Range/Units 12:57 20:54 04:27 RBC 2.76 L (4.30-5.90) m/uL Hgb 9.6 L (13.0-17.5) gm/dL Hct 30.6 L (39.0-53.0) % MCV 110.7 H (80.0-100.0) fL RDW 21.5 H (11.5-15.5) % Nucleated RBCs 1 H (0-0) /100 WBC PT (9.0-12.0) sec INR (<1.2) Sodium (137-145) mmol/L BUN (9-20) mg/dL POC Glucose (mg/dL) 119 H 116 H (75-99) mg/dL Calcium (8.4-10.2) mg/dL AST (17-59) U/L Total Protein (6.3-8.2) g/dL Albumin (3.5-5.0) g/dL 03/04/17 03/04/17 Range/Units 04:27 04:27 RBC (4.30-5.90) m/uL Hgb (13.0-17.5) gm/dL Hct (39.0-53.0) % MCV (80.0-100.0) fL RDW (11.5-15.5) % Nucleated RBCs (0-0) /100 WBC PT 12.5 H (9.0-12.0) sec INR 1.3 H (<1.2) Sodium 132 L (137-145) mmol/L BUN 27 H (9-20) mg/dL POC Glucose (mg/dL) (75-99) mg/dL Calcium 8.2 L (8.4-10.2) mg/dL AST 15 L (17-59) U/L Total Protein 6.0 L (6.3-8.2) g/dL Albumin 3.1 L (3.5-5.0) g/dL Microbiology - Last 24 Hours (Table) 03/02/17 02:20 Urine Culture - Preliminary Urine,Clean Catch Assessment and Plan Plan: Bilateral pneumonia with hemoptysis Left upper lobe nodule Left-sided iatrogenic tension pneumothorax status post new 28-[place] left-sided chest tube and removal of old pigtail catheter Severe COPD with chronic hypoxic respiratory failure Chronic atrial fibrillation Plan is to monitor observe patient in ICU thoracic surgery consultation has been obtained patient's is to be evaluated for VATS procedure for left upper lobe nodule resection and possible pleurodesis. We will initiate patient on Xanax maintain patient on peptic ulcer disease prophylaxis continue Lovenox for chronic atrial fibrillation for now awaiting biopsy results we'll do a bedside spirometry patient is being started on subcu Lovenox will continue the antibiotics breathing treatment was start tapering down the steroids patient will be kept on peptic ulcer disease prophylaxis and supportive care care plan discussed with the nursing staff at length. Time with Patient: Greater than 30
[2017-03-04] MEDS: predniSONE 20 MG TAB PO SCH (08:53)
[2017-03-04] MEDS: METOPROLOL SUCCINATE (ER) 25 MG TAB.ER.24H PO SCH (08:53)
[2017-03-04] MEDS: ENOXAPARIN 40 MG/0.4 ML SYRINGE SQ SCH ×2 (08:53→20:38)
[2017-03-04] MEDS: DIVALPROEX 500 MG TABLET.DR PO SCH ×2 (08:55→20:38)
[2017-03-04] MEDS: AZITHROMYCIN 500 MG TAB PO SCH (08:55)
[2017-03-04] MEDS: FAMOTIDINE 20 MG/2 ML VIAL IV SCH ×2 (08:55→20:38)
[2017-03-04] MEDS: carBAMazepine 400 MG TAB.ER.12H PO SCH ×2 (08:56→20:38)
[2017-03-04 09:03] LABS: Glucose,Whole Blood 105 mg/dL (75-99)
[2017-03-04] MEDS: INSULIN LISPRO (humaLOG) 300 UNIT/3 ML VIAL SQ SCH ×4 (09:03→21:05)
--- NOTE | 2017-03-04 09:19 | P.PN ---
Subjective Principal diagnosis: Chronic atrial fibrillation, seizure disorder, history of colon cancer, history of myocardial infarction, history of stroke, history of GI bleed, history of home oxygen therapy, tobacco dependence in remission, family history of lung cancer, chronic obstructive pulmonary disease. The patient is post CT-guided lung biopsy performed by Dr. Nazario. Subsequently the patient developed a pneumothorax post biopsy and a pigtail drain was placed. He was subsequently transferred to [facility] for observation and further treatment and evaluation. Pathology for the lung biopsy is pending. The patient is lying in bed alert and oriented 3. Denies complaints of pain at this time. No acute distress. Objective - Vital Signs Vital signs: Vital Signs Temp 98.1 F 03/04/17 00:00 Pulse 87 03/04/17 08:06 Resp 15 03/04/17 07:00 BP 148/86 03/04/17 05:30 Pulse Ox 97 03/04/17 07:58 Intake & Output 03/03/17 03/04/17 03/04/17 18:59 06:59 18:59 Intake Total 220 490 20 Output Total 765 1501 55 Balance -545 -1011 -35 Weight 78.7 kg Intake: IV 220 250 20 Sodium Chloride 0.9% 1, 220 250 20 000 ml @ 20 mls/hr IV . Q24H [facility] Rx#:[id number] Oral 240 Output: Chest Tube Drainage 15 86 5 left chest 15 86 5 Urine 750 1415 50 Other: Voiding Method Indwelling Catheter # Voids 0 # Bowel Movements 0 - Constitutional General appearance: Present: cooperative, no acute distress - EENT Eyes: Present: PERRLA, normal appearance ENT: Present: hearing grossly normal - Neck Details: No JVD, no lymphadenopathy. - Respiratory Details: Lung sounds essentially clear throughout, diminished to his bilateral bases. Respirations are symmetrical and nonlabored. Oxygen saturation are 99% on 4 L nasal cannula. He is achieving 15 mm on his incentive spirometry. Left pleural chest tube remained intact and is to low continuous wall suction -20 cm H2O. It is evacuating thin serosanguineous drainage. 65 mL output in the last 8 hours, 90 mL output in the last 24 hours. No air leak present. - Cardiovascular Details: Irregular rhythm and rate. S1 and S2 present, negative for S3, gallop or murmur. Bedside telemetry showing atrial fibrillation heart rate 81. Sequential compression devices in place to his bilateral lower extremities. No edema present. - Gastrointestinal Gastrointestinal Comment(s): Active bowel sounds to all 4 abdominal quadrants. Abdomen is soft, nontender and nondistended. Tolerating oral intake. - Genitourinary Genitourinary Comment(s): Clear yellow urine. Aparicio catheter for accurate I&O. 1265 mL output recorded the last 8 hours. - Integumentary Integumentary Comment(s): No rash. Integumentary: Present: normal, normal turgor - Musculoskeletal Musculoskeletal: Present: gait normal, strength equal bilaterally - Psychiatric Psychiatric: Present: A&O x's 3, appropriate affect, intact judgment & insight - Labs CBC & Chem 7: 03/04/17 04:27 03/04/17 04:27 Labs: Abnormal Lab Results - Last 24 Hours (Table) 03/03/17 03/03/17 03/04/17 Range/Units 12:57 20:54 04:27 RBC 2.76 L (4.30-5.90) m/uL Hgb 9.6 L (13.0-17.5) gm/dL Hct 30.6 L (39.0-53.0) % MCV 110.7 H (80.0-100.0) fL RDW 21.5 H (11.5-15.5) % Nucleated RBCs 1 H (0-0) /100 WBC PT (9.0-12.0) sec INR (<1.2) Sodium (137-145) mmol/L BUN (9-20) mg/dL POC Glucose (mg/dL) 119 H 116 H (75-99) mg/dL Calcium (8.4-10.2) mg/dL AST (17-59) U/L Total Protein (6.3-8.2) g/dL Albumin (3.5-5.0) g/dL 03/04/17 03/04/17 03/04/17 Range/Units 04:27 04:27 09:02 RBC (4.30-5.90) m/uL Hgb (13.0-17.5) gm/dL Hct (39.0-53.0) % MCV (80.0-100.0) fL RDW (11.5-15.5) % Nucleated RBCs (0-0) /100 WBC PT 12.5 H (9.0-12.0) sec INR 1.3 H (<1.2) Sodium 132 L (137-145) mmol/L BUN 27 H (9-20) mg/dL POC Glucose (mg/dL) 105 H (75-99) mg/dL Calcium 8.2 L (8.4-10.2) mg/dL AST 15 L (17-59) U/L Total Protein 6.0 L (6.3-8.2) g/dL Albumin 3.1 L (3.5-5.0) g/dL Microbiology - Last 24 Hours (Table) 03/02/17 02:20 Urine Culture - Preliminary Urine,Clean Catch - Imaging and Cardiology Chest x-ray: report reviewed, image reviewed Assessment and Plan (1) Chronic atrial fibrillation Status: Acute (2) Family history of lung cancer Status: Acute (3) History of GI bleed Status: Acute (4) History of colon cancer Status: Acute (5) History of home oxygen therapy Status: Acute (6) History of myocardial infarction Status: Acute (7) History of stroke Status: Acute (8) Seizure disorder Status: Acute (9) Tobacco dependence in remission Status: Acute (10) COPD (chronic obstructive pulmonary disease) Status: Acute Plan: 1. Awaiting pathology results for further recommendations and treatment. 2. Pulmonary management and recommendations per Dr. Nazario. 3. GI and DVT prophylaxis in place 4. Further treatment recommendations as patient progresses and care. Time with Patient: Greater than 30
[2017-03-04 11:40] LABS: Glucose,Whole Blood 150 mg/dL (75-99)
[2017-03-04] MEDS: ALPRAZolam 0.25 MG TAB PO PRN ×2 (11:40→20:38)
[2017-03-04 19:17] LABS: Glucose,Whole Blood 124 mg/dL (75-99)
[2017-03-04 20:51] LABS: Glucose,Whole Blood 111 mg/dL (75-99)
[2017-03-05] MEDS: HYDROmorphone 1 MG/ML 1 ML SYRINGE IVP PRN ×4 (03:04→18:31)
[2017-03-05 04:49] LABS: Anisocytosis Moderate; CH 34.9; CHCM 31.9; HDW 3.84; Hypochromasia Moderate; MCH 35.1 pg (25.0-35.0); MCHC 32.2 g/dL (31.0-37.0); Macrocytosis Marked; Mean Platelet Volume 8.3; Poikilocytosis Slight; RBC 2.57 m/uL (4.30-5.90); RDW 21.1 % (11.5-15.5); WBC (Perox) 5.64
[2017-03-05 05:00] LABS: INR 1.3 (<1.2); Prothrombin Time 12.4 sec (9.0-12.0)
[2017-03-05 05:03] LABS: ALT 24 U/L (21-72); AST 13 U/L (17-59); Alkaline Phosphatase 46 U/L (38-126); Anion Gap 7 mmol/L; Blood Urea Nitrogen 25 mg/dL (9-20); Calcium 8.3 mg/dL (8.4-10.2); Carbon Dioxide 27 mmol/L (22-30); Chloride 102 mmol/L (98-107); Glucose 89 mg/dL (74-99); Magnesium 2.1 mg/dL (1.6-2.3); Non-African American GFR(MDRD) >60 (>60 ml/min/1.73 sqM); Phosphorus 3.8 mg/dL (2.5-4.5); Potassium 5.3 mmol/L (3.5-5.1); Sodium 136 mmol/L (137-145); Total Bilirubin 0.4 mg/dL (0.2-1.3); Total Protein 5.9 g/dL (6.3-8.2)
[2017-03-05 05:41] LABS: Add Differential Manual Differential
[2017-03-05 05:45] LABS: Band Neutrophils % 1 %; Myelocytes % 2 %; Nucleated Red Blood Cells 2 /100 WBC (0-0); Total Cells Counted 200
[2017-03-05 05:46] LABS: Manual Review Performed; WBC 5.2 k/uL (3.8-10.6)
[2017-03-05 05:47] LABS: Basophilic Stippling Present; Polychromasia Present
[2017-03-05] MEDS: HYDROcodone/APAP 5-325MG 1 EACH TAB PO PRN ×3 (06:51→20:20)
[2017-03-05 07:16] LABS: Glucose,Whole Blood 96 mg/dL (75-99)
[2017-03-05] MEDS: INSULIN LISPRO (humaLOG) 300 UNIT/3 ML VIAL SQ SCH ×4 (07:21→20:26)
--- NOTE | 2017-03-05 07:25 | XR ---
EXAMINATION TYPE: XR chest 1V DATE OF EXAM: 03/05/2017 HISTORY: pneumothorax. REFERENCE: Previous study dated 03/04/2017. FINDINGS: Left pleural drain remains in place. There is a tiny left apical pneumothorax, may be 5% by volume. There is bibasilar airspace disease. The heart is not enlarged. There is diffuse interstitia l change, unchanged from previous. I could not exclude small, bilateral effusions. IMPRESSION: 1. TINY, 5% LEFT APICAL PNEUMOTHORAX. 2. DIFFUSE INTERSTITIAL CHANGE. 3. BIBASILAR ATELECTASIS. 4. I CANNOT EXCLUDE SMALL, BILATERAL EFFUSIONS.
--- NOTE | 2017-03-05 07:37 | P.PN ---
Subjective Principal diagnosis: Chronic atrial fibrillation, seizure disorder, history of colon cancer, history of myocardial infarction, history of stroke, history of GI bleed, history of home oxygen therapy, tobacco dependence in remission, family history of lung cancer, chronic obstructive pulmonary disease. The patient is post CT-guided lung biopsy performed by Dr. Nazario. Subsequently the patient developed a pneumothorax post biopsy and a pigtail drain was placed. He was subsequently transferred to [facility] for observation and further treatment and evaluation. Pathology for the lung biopsy is pending. The patient is lying in bed alert and oriented 3. Denies complaints of pain at this time. No acute distress. Objective - Vital Signs Vital signs: Vital Signs Temp 98 F 03/05/17 04:00 Pulse 84 03/05/17 07:00 Resp 15 03/05/17 07:00 BP 117/60 03/05/17 07:00 Pulse Ox 97 03/05/17 07:00 Intake & Output 03/04/17 03/05/17 03/05/17 18:59 06:59 18:59 Intake Total 960 380 260 Output Total 720 2030 125 Balance 240 -1650 135 Weight 78.3 kg Intake: IV 220 260 20 Sodium Chloride 0.9% 1, 220 260 20 000 ml @ 20 mls/hr IV . Q24H [facility] Rx#:[id number] Intake, IV Titration 220 Amount Magnesium Sulfate-D5w Pmx 100 1 gm In Dextrose/Water 1 100ml.bag @ 100 mls/hr IVPB Q1H [facility] Rx#: [id number] Sodium Chloride 0.9% 1, 20 000 ml @ 20 mls/hr IV . Q24H [facility] Rx#:[id number] cefTRIAXone 1,000 mg In 100 Sodium Chloride 0.9% 50 ml @ 100 mls/hr IVPB Q24HR [facility] Rx#:[id number] Oral 520 120 240 Output: Chest Tube Drainage 15 30 left chest 15 30 Urine 705 2000 125 Other: Voiding Method Indwelling Catheter Indwelling Catheter # Voids 0 0 # Bowel Movements 0 0 - Constitutional Constitutional Comment(s): Episodes of restlessness. General appearance: Present: cooperative, no acute distress - EENT Eyes: Present: PERRLA, normal appearance ENT: Present: hearing grossly normal - Neck Details: No JVD, no lymphadenopathy. - Respiratory Details: Lung sounds essentially clear throughout, diminished to his bilateral bases. Respirations are symmetrical and nonlabored. Oxygen saturation are 92% on 5 L nasal cannula. He is achieving 1250 ml on his incentive spirometry. Left pleural chest tube remained intact and is to low continuous wall suction -20 cm H2O. It is evacuating thin serosanguineous drainage. 10 mL output in the last 8 hours, 40 mL output in the last 24 hours. No air leak present. - Cardiovascular Details: Irregular rhythm and rate. S1 and S2 present, negative for S3, gallop or murmur. Bedside telemetry showing atrial fibrillation heart rate 75. Sequential compression devices in place to his bilateral lower extremities. No edema present. - Gastrointestinal Gastrointestinal Comment(s): Abdomen is soft, nontender and nondistended. Active bowel sounds all 4 abdominal quadrants. Tolerating oral intake. - Genitourinary Genitourinary Comment(s): Clear yellow urine. Aparicio catheter for accurate I&O. 1180 mL output recorded the last 8 hours - Integumentary Integumentary: Present: normal, normal turgor - Neurologic Neurologic Comment(s): No focal deficits. Neurologic: Present: CNII-XII intact - Musculoskeletal Musculoskeletal: Present: strength equal bilaterally - Psychiatric Psychiatric: Present: A&O x's 3, appropriate affect, intact judgment & insight - Allied health notes Allied health notes reviewed: nursing - Labs CBC & Chem 7: 03/05/17 04:26 03/05/17 04:26 Labs: Abnormal Lab Results - Last 24 Hours (Table) 03/04/17 03/04/17 03/04/17 Range/Units 09:02 11:26 19:15 RBC (4.30-5.90) m/uL Hgb (13.0-17.5) gm/dL Hct (39.0-53.0) % MCV (80.0-100.0) fL MCH (25.0-35.0) pg RDW (11.5-15.5) % Myelocytes # (Manual) (0) k/uL Nucleated RBCs (0-0) /100 WBC PT (9.0-12.0) sec INR (<1.2) Sodium (137-145) mmol/L Potassium (3.5-5.1) mmol/L BUN (9-20) mg/dL POC Glucose (mg/dL) 105 H 150 H 124 H (75-99) mg/dL Calcium (8.4-10.2) mg/dL AST (17-59) U/L Total Protein (6.3-8.2) g/dL Albumin (3.5-5.0) g/dL 03/04/17 03/05/17 03/05/17 Range/Units 20:48 04:26 04:26 RBC 2.57 L (4.30-5.90) m/uL Hgb 9.0 L (13.0-17.5) gm/dL Hct 28.0 L (39.0-53.0) % MCV 109.0 H (80.0-100.0) fL MCH 35.1 H (25.0-35.0) pg RDW 21.1 H (11.5-15.5) % Myelocytes # (Manual) 0.10 H (0) k/uL Nucleated RBCs 2 H (0-0) /100 WBC PT 12.4 H (9.0-12.0) sec INR 1.3 H (<1.2) Sodium (137-145) mmol/L Potassium (3.5-5.1) mmol/L BUN (9-20) mg/dL POC Glucose (mg/dL) 111 H (75-99) mg/dL Calcium (8.4-10.2) mg/dL AST (17-59) U/L Total Protein (6.3-8.2) g/dL Albumin (3.5-5.0) g/dL 03/05/17 Range/Units 04:26 RBC (4.30-5.90) m/uL Hgb (13.0-17.5) gm/dL Hct (39.0-53.0) % MCV (80.0-100.0) fL MCH (25.0-35.0) pg RDW (11.5-15.5) % Myelocytes # (Manual) (0) k/uL Nucleated RBCs (0-0) /100 WBC PT (9.0-12.0) sec INR (<1.2) Sodium 136 L (137-145) mmol/L Potassium 5.3 H (3.5-5.1) mmol/L BUN 25 H (9-20) mg/dL POC Glucose (mg/dL) (75-99) mg/dL Calcium 8.3 L (8.4-10.2) mg/dL AST 13 L (17-59) U/L Total Protein 5.9 L (6.3-8.2) g/dL Albumin 2.9 L (3.5-5.0) g/dL Microbiology - Last 24 Hours (Table) 03/02/17 02:20 Urine Culture - Final Urine,Clean Catch - Imaging and Cardiology Chest x-ray: report reviewed, image reviewed Assessment and Plan (1) Chronic atrial fibrillation Status: Acute (2) Family history of lung cancer Status: Acute (3) History of GI bleed Status: Acute (4) History of colon cancer Status: Acute (5) History of home oxygen therapy Status: Acute (6) History of myocardial infarction Status: Acute (7) History of stroke Status: Acute (8) Seizure disorder Status: Acute (9) Tobacco dependence in remission Status: Acute (10) COPD (chronic obstructive pulmonary disease) Status: Acute Plan: 1. Awaiting pathology results for further recommendations and treatment. 2. Pulmonary management and recommendations per Dr. Nazario. 3. GI and DVT prophylaxis in place 4. Further treatment recommendations as patient progresses and care. Time with Patient: Greater than 30
[2017-03-05] MEDS: IPRATROPIUM-ALBUTEROL 3 ML NEB INHALATION PRN ×4 (07:43→19:25)
[2017-03-05] MEDS: BUDESONIDE 0.5 MG/2 ML NEBU INHALATION SCH ×2 (07:43→19:25)
[2017-03-05] MEDS: METOPROLOL SUCCINATE (ER) 25 MG TAB.ER.24H PO SCH (08:13)
[2017-03-05] MEDS: ENOXAPARIN 40 MG/0.4 ML SYRINGE SQ SCH ×2 (08:14→20:21)
[2017-03-05] MEDS: DIVALPROEX 500 MG TABLET.DR PO SCH ×2 (08:15→20:20)
[2017-03-05] MEDS: FAMOTIDINE 20 MG/2 ML VIAL IV SCH ×2 (08:15→20:20)
[2017-03-05] MEDS: predniSONE 20 MG TAB PO SCH (08:15)
[2017-03-05] MEDS: carBAMazepine 400 MG TAB.ER.12H PO SCH ×2 (08:15→20:20)
[2017-03-05] MEDS: AZITHROMYCIN 500 MG TAB PO SCH (08:15)
[2017-03-05 09:31] LABS: Appearance,Urine Clear (Clear); Bilirubin,Urine Negative (Negative); Glucose,Urine (UA) Negative (Negative); Ketones,Urine Negative (Negative); Leukocyte Esterase,Urine Large (Negative); Nitrite,Urine Negative (Negative); Particle Count 1118; Protein,Urine Negative (Negative); RBC,Urine <1 /hpf (0-5); Specific Gravity,Urine 1.011 (1.001-1.035); UA Billing (MACRO vs. MICRO) MICRO; Urobilinogen,Urine <2.0 mg/dL (<2.0); WBC,Urine 30 /hpf (0-5)
[2017-03-05 11:49] LABS: Glucose,Whole Blood 127 mg/dL (75-99)
[2017-03-05] MEDS: ALPRAZolam 0.25 MG TAB PO PRN (20:21)
[2017-03-05 20:27] LABS: Glucose,Whole Blood 135 mg/dL (75-99)
[2017-03-05] MEDS: SODIUM CHLORIDE 0.9% 1,000 ML IV SCH (22:15)
[2017-03-05 22:58] LABS: Glucose,Whole Blood 119 mg/dL (75-99)
[2017-03-06] MEDS: HYDROmorphone 1 MG/ML 1 ML SYRINGE IVP PRN (00:37)
--- NOTE | 2017-03-06 00:38 | P.PN ---
Subjective Principal diagnosis: Acute left tension pneumothorax Patient is a 67-year-old male with a known history of chronic atrial fibrillation not on any anticoagulation, seizure disorder, history of CVA/TIA, history of colon cancer status post resection and history of [place] and GERD and left lung nodule who underwent CT-guided biopsy at [facility]. Patient subsequently developed tension pneumothorax and pigtail catheter and was transferred to [facility] for further evaluation by CTsurgery for the treatment of lung nodule. Patient was laced with left-sided chest tube currently. Patient is also on antibiotics for pneumonia treatment. Pulmonary and CT surgery is following this patient. Currently patient denied any worsening chest pain or short of breath. Pain is fairly controlled with pain medications. No fever no chills. Chest x-ray showed resolution of pneumothorax. Interstitial infiltrates in the left lower lobe as well as pulmonary fibrosis. On 03/04/2017 Patient remained on chest tube. Pain is controlled. No chest chest pain or worsening short of breath. No nausea vomiting or abdominal pain. Patient is tolerating diet. Elevating pathology report. No fever no chills. Objective - Vital Signs Vital signs: Vital Signs Temp 97.8 F 03/04/17 09:30 Pulse 88 03/04/17 13:30 Resp 33 H 03/04/17 13:30 BP 152/76 03/04/17 13:30 Pulse Ox 91 L 03/04/17 13:30 Intake & Output 03/03/17 03/04/17 03/04/17 18:59 06:59 18:59 Intake Total 220 490 340 Output Total 765 1501 470 Balance -545 -1011 -130 Weight 78.7 kg Intake: IV 220 250 120 Sodium Chloride 0.9% 1, 220 250 120 000 ml @ 20 mls/hr IV . Q24H [facility] Rx#:[id number] Intake, IV Titration 220 Amount Magnesium Sulfate-D5w Pmx 100 1 gm In Dextrose/Water 1 100ml.bag @ 100 mls/hr IVPB Q1H [facility] Rx#: [id number] Sodium Chloride 0.9% 1, 20 000 ml @ 20 mls/hr IV . Q24H [facility] Rx#:[id number] cefTRIAXone 1,000 mg In 100 Sodium Chloride 0.9% 50 ml @ 100 mls/hr IVPB Q24HR [facility] Rx#:[id number] Oral 240 Output: Chest Tube Drainage 15 86 15 left chest 15 86 15 Urine 750 1415 455 Other: Voiding Method Indwelling Catheter Indwelling Catheter # Voids 0 0 # Bowel Movements 0 0 - Exam Patient is lying in the bed comfortably, no acute distress, awake alert and oriented.. HEENT: Normocephalic. Neck is supple. Pupils reactive. Nostrils clear. Oral cavity is moist. Ears reveal no drainage. Neck reveals no JVD, carotid bruits, or thyromegaly. CHEST EXAMINATION: Trachea is central. Symmetrical expansion. Left-sided basilar crackles and decreased breath sounds. Left-sided chest tube in place with suction. Tenderness with palpation. CARDIAC: Normal S1, S2 with no gallops. No murmurs ABDOMEN: Soft. Bowel sounds normal. No organomegaly. No abdominal bruits. Extremities reveal no edema. No clubbing or cyanosis Neurologically awake, alert, oriented x3 with well-coordinated movements. Skin: no rash or skin lesions Musculoskeletal: no joint swelling or deformity. - Labs CBC & Chem 7: 03/05/17 04:26 03/05/17 04:26 Labs: Abnormal Lab Results - Last 24 Hours (Table) 03/03/17 03/04/17 03/04/17 Range/Units 20:54 04:27 04:27 RBC 2.76 L (4.30-5.90) m/uL Hgb 9.6 L (13.0-17.5) gm/dL Hct 30.6 L (39.0-53.0) % MCV 110.7 H (80.0-100.0) fL RDW 21.5 H (11.5-15.5) % Nucleated RBCs 1 H (0-0) /100 WBC PT 12.5 H (9.0-12.0) sec INR 1.3 H (<1.2) Sodium (137-145) mmol/L BUN (9-20) mg/dL POC Glucose (mg/dL) 116 H (75-99) mg/dL Calcium (8.4-10.2) mg/dL AST (17-59) U/L Total Protein (6.3-8.2) g/dL Albumin (3.5-5.0) g/dL 03/04/17 03/04/17 03/04/17 Range/Units 04:27 09:02 11:26 RBC (4.30-5.90) m/uL Hgb (13.0-17.5) gm/dL Hct (39.0-53.0) % MCV (80.0-100.0) fL RDW (11.5-15.5) % Nucleated RBCs (0-0) /100 WBC PT (9.0-12.0) sec INR (<1.2) Sodium 132 L (137-145) mmol/L BUN 27 H (9-20) mg/dL POC Glucose (mg/dL) 105 H 150 H (75-99) mg/dL Calcium 8.2 L (8.4-10.2) mg/dL AST 15 L (17-59) U/L Total Protein 6.0 L (6.3-8.2) g/dL Albumin 3.1 L (3.5-5.0) g/dL Microbiology - Last 24 Hours (Table) 03/02/17 02:20 Urine Culture - Preliminary Urine,Clean Catch Assessment and Plan Plan: Left lower lobe lung nodule status post CT-guided biopsy Left-sided pneumothorax followed by biopsy. Macrocytic anemia Hypovolemic hyponatremia COPD with mild exacerbation History of colon cancer status post resection History of [place] Family history of colon cancer GERD Chronic atrial fibrillation. Currently not on anticoagulation. Noncompliance with follow-up and medications History of CVA with dysarthria and left upper extremity weakness. DVT prophylaxis Plan: Patient will be continued on chest tube with suction. Continue with breathing treatments as needed. CT surgery and pulmonary is following this patient. Chest x-ray showed improvement in pneumothorax. Continue with the pain management and follow closely. Awaiting biopsy report done at [facility]. Further recommendations based on the clinical course. Prognosis is guarded.
--- NOTE | 2017-03-06 00:40 | P.PN ---
Subjective Principal diagnosis: Acute left tension pneumothorax Patient is a 67-year-old male with a known history of chronic atrial fibrillation not on any anticoagulation, seizure disorder, history of CVA/TIA, history of colon cancer status post resection and history of RI and GERD and left lung nodule who underwent CT-guided biopsy at [facility]. Patient subsequently developed tension pneumothorax and pigtail catheter and was transferred to [facility] for further evaluation by CTsurgery for the treatment of lung nodule. Patient was laced with left-sided chest tube currently. Patient is also on antibiotics for pneumonia treatment. Pulmonary and CT surgery is following this patient. Currently patient denied any worsening chest pain or short of breath. Pain is fairly controlled with pain medications. No fever no chills. Chest x-ray showed resolution of pneumothorax. Interstitial infiltrates in the left lower lobe as well as pulmonary fibrosis. On 03/04/2017 Patient remained on chest tube. Pain is controlled. No chest chest pain or worsening short of breath. No nausea vomiting or abdominal pain. Patient is tolerating diet. Elevating pathology report. No fever no chills. 03/05/2017 Patient denied any worsening pain or short of breath. No fever no chills no acute overnight issues. No nausea vomiting or abdominal pain. Objective - Vital Signs Vital signs: Vital Signs Temp 98.2 F 03/05/17 18:00 Pulse 84 03/05/17 21:00 Resp 25 H 03/05/17 21:00 BP 149/80 03/05/17 21:00 Pulse Ox 96 03/05/17 21:00 Intake & Output 03/05/17 03/05/17 03/06/17 06:59 18:59 06:59 Intake Total 380 1080 660 Output Total 2029 1034 300 Balance -1650 46 360 Weight 78.3 kg 78 kg Intake: IV 260 240 60 Sodium Chloride 0.9% 1, 260 240 60 000 ml @ 20 mls/hr IV . Q24H [facility] Rx#:[id number] Oral 120 840 600 Output: Chest Tube Drainage 30 24 left chest 30 24 Urine 2000 1010 300 Other: Voiding Method Indwelling Catheter Indwelling Catheter Indwelling Catheter # Voids 0 0 0 # Bowel Movements 0 0 0 - Exam Patient is lying in the bed comfortably, no acute distress, awake alert and oriented.. HEENT: Normocephalic. Neck is supple. Pupils reactive. Nostrils clear. Oral cavity is moist. Ears reveal no drainage. Neck reveals no JVD, carotid bruits, or thyromegaly. CHEST EXAMINATION: Trachea is central. Symmetrical expansion. Left-sided basilar crackles and decreased breath sounds. Left-sided chest tube in place with suction. Tenderness with palpation. CARDIAC: Normal S1, S2 with no gallops. No murmurs ABDOMEN: Soft. Bowel sounds normal. No organomegaly. No abdominal bruits. Extremities reveal no edema. No clubbing or cyanosis Neurologically awake, alert, oriented x3 with well-coordinated movements. Skin: no rash or skin lesions Musculoskeletal: no joint swelling or deformity. - Labs CBC & Chem 7: 03/05/17 04:26 03/05/17 04:26 Labs: Abnormal Lab Results - Last 24 Hours (Table) 03/05/17 03/05/17 03/05/17 Range/Units 04:26 04:26 04:26 RBC 2.57 L (4.30-5.90) m/uL Hgb 9.0 L (13.0-17.5) gm/dL Hct 28.0 L (39.0-53.0) % MCV 109.0 H (80.0-100.0) fL MCH 35.1 H (25.0-35.0) pg RDW 21.1 H (11.5-15.5) % Myelocytes # (Manual) 0.10 H (0) k/uL Nucleated RBCs 2 H (0-0) /100 WBC PT 12.4 H (9.0-12.0) sec INR 1.3 H (<1.2) Sodium 136 L (137-145) mmol/L Potassium 5.3 H (3.5-5.1) mmol/L BUN 25 H (9-20) mg/dL POC Glucose (mg/dL) (75-99) mg/dL Calcium 8.3 L (8.4-10.2) mg/dL AST 13 L (17-59) U/L Total Protein 5.9 L (6.3-8.2) g/dL Albumin 2.9 L (3.5-5.0) g/dL Ur Leukocyte Esterase (Negative) Urine WBC (0-5) /hpf 03/05/17 03/05/17 03/05/17 Range/Units 09:00 11:48 20:25 RBC (4.30-5.90) m/uL Hgb (13.0-17.5) gm/dL Hct (39.0-53.0) % MCV (80.0-100.0) fL MCH (25.0-35.0) pg RDW (11.5-15.5) % Myelocytes # (Manual) (0) k/uL Nucleated RBCs (0-0) /100 WBC PT (9.0-12.0) sec INR (<1.2) Sodium (137-145) mmol/L Potassium (3.5-5.1) mmol/L BUN (9-20) mg/dL POC Glucose (mg/dL) 127 H 135 H (75-99) mg/dL Calcium (8.4-10.2) mg/dL AST (17-59) U/L Total Protein (6.3-8.2) g/dL Albumin (3.5-5.0) g/dL Ur Leukocyte Esterase Large H (Negative) Urine WBC 30 H (0-5) /hpf Assessment and Plan Plan: Left lower lobe lung nodule status post CT-guided biopsy Left-sided pneumothorax followed by biopsy. Possible pneumonia Macrocytic anemia Hypovolemic hyponatremia COPD with mild exacerbation History of colon cancer status post resection History of RI Family history of colon cancer GERD Chronic atrial fibrillation. Currently not on anticoagulation. Noncompliance with follow-up and medications History of CVA with dysarthria and left upper extremity weakness. DVT prophylaxis Plan: Patient will be continued on chest tube with suction. Continue with breathing treatments as needed. Continue with antibiotics in the form of ceftriaxone and azithromycin. Continue with prednisone [address] surgery and pulmonary is following this patient. Chest x-ray showed improvement in pneumothorax. Continue with the pain management and follow closely. Awaiting biopsy report done at [facility]. Further recommendations based on the clinical course. Prognosis is guarded.
[2017-03-06 04:50] LABS: INR 1.3 (<1.2); Prothrombin Time 12.4 sec (9.0-12.0)
[2017-03-06 04:55] LABS: Chloride 103 mmol/L (98-107); Glucose 93 mg/dL (74-99); Potassium 5.6 mmol/L (3.5-5.1); Sodium 134 mmol/L (137-145)
[2017-03-06 04:56] LABS: ALT 24 U/L (21-72); AST 16 U/L (17-59); Alkaline Phosphatase 47 U/L (38-126); Anion Gap 4 mmol/L; Blood Urea Nitrogen 25 mg/dL (9-20); Calcium 8.3 mg/dL (8.4-10.2); Carbon Dioxide 27 mmol/L (22-30); Magnesium 1.9 mg/dL (1.6-2.3); Non-African American GFR(MDRD) >60 (>60 ml/min/1.73 sqM); Phosphorus 3.6 mg/dL (2.5-4.5); Total Bilirubin 0.4 mg/dL (0.2-1.3); Total Protein 5.8 g/dL (6.3-8.2)
[2017-03-06 05:03] LABS: Anisocytosis Moderate; Basophils % (A) 0 %; CH 35.4; CHCM 32.3; Eosinophils % (A) 1 %; HCT 28.5 % (39.0-53.0); HDW 3.59; HGB 8.9 gm/dL (13.0-17.5); Hypochromasia Slight; Luc # (Auto) 0.18; Luc % (Auto) 3; Lymphocytes # (A) 1.2 k/uL (1.0-4.8); Lymphocytes % (A) 20 %; MCHC 31.1 g/dL (31.0-37.0); MCV 109.2 fL (80.0-100.0); Macrocytosis Marked; Mean Platelet Volume 9.2; Monocytes # (A) 0.5 k/uL (0-1.0); Monocytes % (A) 8 %; Neutrophils # (A) 3.9 k/uL (1.3-7.7); Neutrophils % (A) 68 %; Poikilocytosis Slight; RBC 2.61 m/uL (4.30-5.90); RDW 21.7 % (11.5-15.5); WBC 5.8 k/uL (3.8-10.6); WBC (Perox) 6.17
[2017-03-06 05:36] LABS: Manual Review Performed
[2017-03-06] MEDS: HYDROcodone/APAP 5-325MG 1 EACH TAB PO PRN ×3 (06:46→21:20)
[2017-03-06] MEDS: ALPRAZolam 0.25 MG TAB PO PRN ×2 (06:46→21:19)
[2017-03-06 07:34] LABS: Glucose,Whole Blood 135 mg/dL (75-99)
[2017-03-06] MEDS: DIVALPROEX 500 MG TABLET.DR PO SCH ×2 (07:34→21:46)
[2017-03-06] MEDS: INSULIN LISPRO (humaLOG) 300 UNIT/3 ML VIAL SQ SCH ×4 (07:34→21:27)
[2017-03-06] MEDS: AZITHROMYCIN 500 MG TAB PO SCH (07:35)
[2017-03-06] MEDS: predniSONE 20 MG TAB PO SCH (07:35)
[2017-03-06] MEDS: carBAMazepine 400 MG TAB.ER.12H PO SCH ×2 (07:35→21:46)
[2017-03-06] MEDS: ENOXAPARIN 40 MG/0.4 ML SYRINGE SQ SCH ×2 (07:35→21:23)
[2017-03-06] MEDS: FAMOTIDINE 20 MG/2 ML VIAL IV SCH ×2 (07:35→21:23)
[2017-03-06] MEDS: METOPROLOL SUCCINATE (ER) 25 MG TAB.ER.24H PO SCH (07:36)
--- NOTE | 2017-03-06 07:43 | XR ---
EXAMINATION TYPE: XR chest 1V DATE OF EXAM: 03/06/2017 COMPARISON: Prior chest x-ray 03/05/2017 HISTORY: Chest tube TECHNIQUE: Single frontal view of the chest is obtained. FINDINGS: Left-sided chest tube remains in place. No sizable pneumothorax evident. Subcutaneous emph ysema, basilar atelectatic changes again noted. Left upper lobe lung mass not well-defined. Interstit ium is increased. No sizable pneumothorax. Heart size is stable. IMPRESSION: There is no significant interval change. Similar findings to prior exam.
--- NOTE | 2017-03-06 08:37 | P.PN ---
<Geoff Radford - Last Filed: 03/06/17 08:32> Subjective Principal diagnosis: Chronic atrial fibrillation, seizure disorder, history of colon cancer, history of myocardial infarction, history of stroke, history of GI bleed, history of home oxygen therapy, tobacco dependence in remission, family history of lung cancer, chronic obstructive pulmonary disease. The patient is post CT-guided lung biopsy performed by Dr. Nazario. Subsequently the patient developed a pneumothorax post biopsy and a pigtail drain was placed. He was subsequently transferred to [facility] for observation and further treatment and evaluation. Pathology for the lung biopsy is pending. The patient is lying in bed alert and oriented 3. Denies complaints of pain at this time. No acute distress. He reports he feels somewhat better today, and is anxious to be discharged home. Objective - Vital Signs Vital signs: Vital Signs Temp 98.4 F 03/06/17 08:00 Pulse 92 03/06/17 08:00 Resp 28 H 03/06/17 08:00 BP 138/80 03/06/17 08:00 Pulse Ox 95 03/06/17 08:00 Intake & Output 03/05/17 03/06/17 03/06/17 18:59 06:59 18:59 Intake Total 1080 840 40 Output Total 1034 2900 260 Balance 46 -2059 -220 Weight 78 kg 77.3 kg Intake: IV 240 240 40 Sodium Chloride 0.9% 1, 240 240 40 000 ml @ 20 mls/hr IV . Q24H [facility] Rx#:[id number] Oral 840 600 Output: Chest Tube Drainage 24 35 0 left chest 24 35 0 Urine 1010 2865 260 Other: Voiding Method Indwelling Catheter Indwelling Catheter Indwelling Catheter # Voids 0 0 # Bowel Movements 0 0 0 - Constitutional General appearance: Present: cooperative, no acute distress - EENT Eyes: Present: PERRLA, normal appearance ENT: Present: hearing grossly normal - Neck Details: No JVD, no lymphadenopathy. - Respiratory Details: Lung sounds essentially clear throughout, diminished to his bilateral bases with few scattered crackles. Respirations are symmetrical and nonlabored. Oxygen saturation are 98% on 4 L nasal cannula. He is achieving 1010-2924 ml on his incentive spirometry. Left pleural chest tube remained intact and is to low continuous wall suction -20 cm H2O. It is evacuating thin serosanguineous drainage. 25 mL output in the last 8 hours, 100 mL output in the last 24 hours. No air leak present. - Cardiovascular Details: Irregular rhythm and rate. S1 and S2 present, negative for S3, gallop or murmur. Bedside telemetry showing atrial fibrillation heart rate 81. Knee- high JORGE hose and sequential compression devices in place to his bilateral lower extremities. No edema present. - Gastrointestinal Gastrointestinal Comment(s): Abdomen is soft, nontender and nondistended. Active bowel sounds to all 4 abdominal quadrants. Tolerating oral intake. - Genitourinary Genitourinary Comment(s): Clear yellow urine. Aparicio catheter in place for accurate I&O. - Integumentary Integumentary: Present: normal, normal turgor - Neurologic Neurologic: Present: CNII-XII intact - Musculoskeletal Musculoskeletal: Present: strength equal bilaterally - Psychiatric Psychiatric: Present: A&O x's 3, appropriate affect, intact judgment & insight - Allied health notes Allied health notes reviewed: nursing - Labs CBC & Chem 7: 03/06/17 04:09 03/06/17 04:09 Labs: Abnormal Lab Results - Last 24 Hours (Table) 03/05/17 03/05/17 03/05/17 Range/Units 09:00 11:48 20:25 RBC (4.30-5.90) m/uL Hgb (13.0-17.5) gm/dL Hct (39.0-53.0) % MCV (80.0-100.0) fL RDW (11.5-15.5) % PT (9.0-12.0) sec INR (<1.2) Sodium (137-145) mmol/L Potassium (3.5-5.1) mmol/L BUN (9-20) mg/dL POC Glucose (mg/dL) 127 H 135 H (75-99) mg/dL Calcium (8.4-10.2) mg/dL AST (17-59) U/L Total Protein (6.3-8.2) g/dL Albumin (3.5-5.0) g/dL Ur Leukocyte Esterase Large H (Negative) Urine WBC 30 H (0-5) /hpf 03/05/17 03/06/17 03/06/17 Range/Units 22:56 04:09 04:09 RBC 2.61 L (4.30-5.90) m/uL Hgb 8.9 L (13.0-17.5) gm/dL Hct 28.5 L (39.0-53.0) % MCV 109.2 H (80.0-100.0) fL RDW 21.7 H (11.5-15.5) % PT 12.4 H (9.0-12.0) sec INR 1.3 H (<1.2) Sodium (137-145) mmol/L Potassium (3.5-5.1) mmol/L BUN (9-20) mg/dL POC Glucose (mg/dL) 119 H (75-99) mg/dL Calcium (8.4-10.2) mg/dL AST (17-59) U/L Total Protein (6.3-8.2) g/dL Albumin (3.5-5.0) g/dL Ur Leukocyte Esterase (Negative) Urine WBC (0-5) /hpf 03/06/17 03/06/17 Range/Units 04:09 07:31 RBC (4.30-5.90) m/uL Hgb (13.0-17.5) gm/dL Hct (39.0-53.0) % MCV (80.0-100.0) fL RDW (11.5-15.5) % PT (9.0-12.0) sec INR (<1.2) Sodium 134 L (137-145) mmol/L Potassium 5.6 H (3.5-5.1) mmol/L BUN 25 H (9-20) mg/dL POC Glucose (mg/dL) 135 H (75-99) mg/dL Calcium 8.3 L (8.4-10.2) mg/dL AST 16 L (17-59) U/L Total Protein 5.8 L (6.3-8.2) g/dL Albumin 2.9 L (3.5-5.0) g/dL Ur Leukocyte Esterase (Negative) Urine WBC (0-5) /hpf - Imaging and Cardiology Chest x-ray: report reviewed, image reviewed Assessment and Plan (1) Chronic atrial fibrillation Status: Acute (2) Family history of lung cancer Status: Acute (3) History of GI bleed Status: Acute (4) History of colon cancer Status: Acute (5) History of home oxygen therapy Status: Acute (6) History of myocardial infarction Status: Acute (7) History of stroke Status: Acute (8) Seizure disorder Status: Acute (9) Tobacco dependence in remission Status: Acute (10) COPD (chronic obstructive pulmonary disease) Status: Acute Plan: 1. Awaiting pathology results for further recommendations and treatment. 2. Pulmonary management and chest tube recommendations per Dr. Nazario. 3. GI and DVT prophylaxis in place 4. Further treatment recommendations as patient progresses in care. Time with Patient: Less than 30 <Gage Jimenez - Last Filed: 03/06/17 15:52> Objective - Vital Signs Vital signs: Vital Signs Temp 98.4 F 03/06/17 08:00 Pulse 96 03/06/17 13:42 Resp 16 03/06/17 12:00 BP 140/80 03/06/17 12:00 Pulse Ox 94 L 03/06/17 12:00 Intake & Output 03/05/17 03/06/17 03/06/17 18:59 06:59 18:59 Intake Total 1080 840 160 Output Total 1034 2900 660 Balance 46 -0 -500 Weight 78 kg 77.3 kg Intake: IV 240 240 60 Sodium Chloride 0.9% 1, 240 240 60 000 ml @ 20 mls/hr IV . Q24H [facility] Rx#:[id number] Oral 840 600 100 Output: Chest Tube Drainage 24 35 0 left chest 24 35 0 Urine 1010 2865 660 Other: Voiding Method Indwelling Catheter Indwelling Catheter Indwelling Catheter # Voids 0 0 1 # Bowel Movements 0 0 1 - Labs CBC & Chem 7: 03/06/17 04:09 03/06/17 04:09 Labs: Abnormal Lab Results - Last 24 Hours (Table) 03/05/17 03/05/17 03/06/17 Range/Units 20:25 22:56 04:09 RBC 2.61 L (4.30-5.90) m/uL Hgb 8.9 L (13.0-17.5) gm/dL Hct 28.5 L (39.0-53.0) % MCV 109.2 H (80.0-100.0) fL RDW 21.7 H (11.5-15.5) % PT (9.0-12.0) sec INR (<1.2) Sodium (137-145) mmol/L Potassium (3.5-5.1) mmol/L BUN (9-20) mg/dL POC Glucose (mg/dL) 135 H 119 H (75-99) mg/dL Calcium (8.4-10.2) mg/dL AST (17-59) U/L Total Protein (6.3-8.2) g/dL Albumin (3.5-5.0) g/dL 03/06/17 03/06/17 03/06/17 Range/Units 04:09 04:09 07:31 RBC (4.30-5.90) m/uL Hgb (13.0-17.5) gm/dL Hct (39.0-53.0) % MCV (80.0-100.0) fL RDW (11.5-15.5) % PT 12.4 H (9.0-12.0) sec INR 1.3 H (<1.2) Sodium 134 L (137-145) mmol/L Potassium 5.6 H (3.5-5.1) mmol/L BUN 25 H (9-20) mg/dL POC Glucose (mg/dL) 135 H (75-99) mg/dL Calcium 8.3 L (8.4-10.2) mg/dL AST 16 L (17-59) U/L Total Protein 5.8 L (6.3-8.2) g/dL Albumin 2.9 L (3.5-5.0) g/dL Assessment and Plan Plan: The patient was seen and examined. I agree with the above assessment and plan. We are currently awaiting results of his CT-guided biopsy performed at an outside hospital. His chest x-ray was reviewed. There is no obvious pneumothorax. He has no air leak today on suction. We will place him to [facility]. Further recommendations to follow.
[2017-03-06] MEDS: BUDESONIDE 0.5 MG/2 ML NEBU INHALATION SCH ×2 (09:00→19:43)
[2017-03-06] MEDS: IPRATROPIUM-ALBUTEROL 3 ML NEB INHALATION PRN ×3 (09:00→19:43)
--- NOTE | 2017-03-06 11:24 | P.PN ---
Subjective Principal diagnosis: Tension pneumothorax, left upper lobe mass, bilateral pneumonia, chronic hypoxic respiratory failure, severe COPD andemphysema, hemoptysis 03/05/17, patient seen and evaluated examined today some level of pain is present on the left thoracic wall subcu emphysema which was noted previously has improved significantly patient does have intermittent cough and chest tightness proceeded he has improved though his been getting Mehoopany and as needed Dilaudid for adequate pain control. His chest x-ray done today failed to reveal significant pneumothorax a questionable left apical pneumothorax cannot be excluded along with some interstitial edema and basal atelectasis likely related to poor respiratory effort is still waiting for the biopsy results from [facility] with further recommendations pending cardiothoracic surgery is following as well, no more evidence of any hemoptysis is been seen heart rate is better under control but however rhythm remains atrial fibrillation with controlled ventricular response 03/04/2017, patient seen and evaluated examined in ICU he is awake and alert breathing relatively comfortably would get anxious and agitated events from yesterday and last night has been noted, patient to have left left tension pneumothorax as the prior pigtail rest tube was plugged requiring emergent placement off a new 28-Bermudian chest tube by me in a stable position. Able to evacuate the tension pneumothorax no more bubbling was seen however patient was trying to get up late last night and to use the urinal disconnected himself over the chest tube developed shortness of breath later on the tube has been reconnected by nurse staff had no more air leak is seen in the pleural VAC. Patient has episodes of intermittent anxiety we will start him on low-dose Xanax patient had low magnesium which is being repleted he is on diet tolerated well patient has been evaluated by Dr. Persaud from thoracic surgery awaiting biopsy results with further interventions pending. His chest x-ray from earlier this morning reviewed no pneumothorax is seen chest tube was stable the right perihilar pneumonia and left lower lobe pneumonia not much change overall stable on antibiotics His labs from today's reviewed borderline hyponatremia noted he is anemic with hemoglobin of 9.6 we'll monitor observe closely Critical care time spent 35 minutes Mr. Rendon is a 67-year-old male with history of severe COPD emphysema and chronic persistent asthma patient also has history of chronic atrial fibrillation and has been attempted on anticoagulants but couldn't tolerate it because of the GI bleeding has been off of blood thinners patient is somewhat unreliable in terms of follow-up he does have a history of prior pneumonia and right-sided nodule however that did resolve though. Patient was sent from the primary care provider to my office with ongoing hemoptysis and also found to have abnormal chest x-ray and CAT scan in fact patient had a PET scan as well which revealed positive uptake in the left upper lobe nodule which was new. Patient also found to have a left upper lobe and right lower lobe infiltrate suggestive of pneumonia given the severe respiratory status patient was considered not to be a candidate for bronchoscopy and biopsies options were discussed with him to optimize therapy and decision was done to admit the patient into the hospital to treat the pneumonia and consideration of biopsy and along the same time. Patient did respond well with the antibiotics with improvement in respiratory status and hemoptysis however interventional radiology was consulted for CT-guided biopsy of left upper lobe nodule they initially attempted a small lymph node on the neck in cervical area which was nondiagnostic followed by CT-guided biopsy of left upper lobe nodule. Patient did have left the pneumothorax which was progressive and eventually giving appearance of a tension pneumothorax requiring emergent placement of a small bore chest tube by interventional radiology the pneumothorax resolved only a small residual 5% pneumothorax was seen subsequent x-ray performed in the afternoon. At that time decision was done to monitor observe and patent patient to be transferred to [facility] for further evaluation and intervention and treatment and possible resection of left upper lobe nodule Objective - Vital Signs Vital signs: Vital Signs Temp 98.4 F 03/06/17 08:00 Pulse 83 03/06/17 09:16 Resp 22 03/06/17 09:00 BP 158/78 03/06/17 09:00 Pulse Ox 92 L 03/06/17 09:00 Intake & Output 03/05/17 03/06/17 03/06/17 18:59 06:59 18:59 Intake Total 1080 840 60 Output Total 1034 2900 660 Balance 46 600 Weight 78 kg 77.3 kg Intake: IV 240 240 60 Sodium Chloride 0.9% 1, 240 240 60 000 ml @ 20 mls/hr IV . Q24H [facility] Rx#:[id number] Oral 840 600 Output: Chest Tube Drainage 24 35 0 left chest 24 35 0 Urine 1010 2865 660 Other: Voiding Method Indwelling Catheter Indwelling Catheter Indwelling Catheter # Voids 0 0 # Bowel Movements 0 0 0 - Exam - Constitutional General appearance: cooperative, disheveled, mild distress - EENT Eyes: EOMI, PERRLA, normal appearance Ears: bilateral: normal - Neck Neck: normal ROM Carotids: bilateral: upstroke normal, bruit absent Thyroid: negative: normal size - Respiratory Respiratory: bilateral: diminished, rhonchi, wheezing, prolonged expiration, no significant subcu emphysema is seen, no more bubbling noted on chest tube air column moves fairly well with respiration and pleural VAC - Cardiovascular Rhythm: irregularly irregular Heart sounds: normal: S1, S2 - Gastrointestinal General gastrointestinal: decreased bowel sounds, normal bowel sounds, soft - Integumentary Integumentary: normal, normal turgor - Neurologic Neurologic: CNII-XII intact - Musculoskeletal Musculoskeletal: gait normal, generalized weakness, strength equal bilaterally - Psychiatric Psychiatric: A&O x's 3, appropriate affect, intact judgment & insight - Labs CBC & Chem 7: 03/06/17 04:09 03/06/17 04:09 Labs: Abnormal Lab Results - Last 24 Hours (Table) 03/05/17 03/05/17 03/05/17 Range/Units 11:48 20:25 22:56 RBC (4.30-5.90) m/uL Hgb (13.0-17.5) gm/dL Hct (39.0-53.0) % MCV (80.0-100.0) fL RDW (11.5-15.5) % PT (9.0-12.0) sec INR (<1.2) Sodium (137-145) mmol/L Potassium (3.5-5.1) mmol/L BUN (9-20) mg/dL POC Glucose (mg/dL) 127 H 135 H 119 H (75-99) mg/dL Calcium (8.4-10.2) mg/dL AST (17-59) U/L Total Protein (6.3-8.2) g/dL Albumin (3.5-5.0) g/dL 03/06/17 03/06/17 03/06/17 Range/Units 04:09 04:09 04:09 RBC 2.61 L (4.30-5.90) m/uL Hgb 8.9 L (13.0-17.5) gm/dL Hct 28.5 L (39.0-53.0) % MCV 109.2 H (80.0-100.0) fL RDW 21.7 H (11.5-15.5) % PT 12.4 H (9.0-12.0) sec INR 1.3 H (<1.2) Sodium 134 L (137-145) mmol/L Potassium 5.6 H (3.5-5.1) mmol/L BUN 25 H (9-20) mg/dL POC Glucose (mg/dL) (75-99) mg/dL Calcium 8.3 L (8.4-10.2) mg/dL AST 16 L (17-59) U/L Total Protein 5.8 L (6.3-8.2) g/dL Albumin 2.9 L (3.5-5.0) g/dL 03/06/17 Range/Units 07:31 RBC (4.30-5.90) m/uL Hgb (13.0-17.5) gm/dL Hct (39.0-53.0) % MCV (80.0-100.0) fL RDW (11.5-15.5) % PT (9.0-12.0) sec INR (<1.2) Sodium (137-145) mmol/L Potassium (3.5-5.1) mmol/L BUN (9-20) mg/dL POC Glucose (mg/dL) 135 H (75-99) mg/dL Calcium (8.4-10.2) mg/dL AST (17-59) U/L Total Protein (6.3-8.2) g/dL Albumin (3.5-5.0) g/dL Assessment and Plan Plan: Bilateral pneumonia with hemoptysis Left upper lobe nodule Left-sided iatrogenic tension pneumothorax status post new 28-Bermudian left-sided chest tube and removal of old pigtail catheter Severe COPD with chronic hypoxic respiratory failure Chronic atrial fibrillation Plan is to monitor observe patient in ICU thoracic surgery consultation has been obtained patient's is to be evaluated for VATS procedure for left upper lobe nodule resection and possible pleurodesis. We will initiate patient on Xanax maintain patient on peptic ulcer disease prophylaxis continue Lovenox for chronic atrial fibrillation for now awaiting biopsy results we'll do a bedside spirometry patient is being maintained on subcu Lovenox will continue the antibiotics breathing treatment was start tapering down the steroids patient will be kept on peptic ulcer disease prophylaxis and supportive care care plan discussed with the nursing staff at length. Time with Patient: Greater than 30
--- NOTE | 2017-03-06 11:28 | P.PN ---
Subjective Principal diagnosis: Tension pneumothorax, left upper lobe mass, bilateral pneumonia, chronic hypoxic respiratory failure, severe COPD andemphysema, hemoptysis 03/06/2017, patient seen and evaluated examined care plan discussed with the nursing staff at length biopsy results are [facility] a nondiagnostic tissue. Patient is breathing definitely better he still have left-sided chest tube no a leak is present subcu continue him emphysema which was seen previously is almost resolved no evidence of active hemoptysis seen patient remains in atrial fibrillation with controlled ventricular response she is on subcu Lovenox is also on broad-spectrum antibiotics and oral prednisone and seems to be tolerating very well, we'll start tapering down the steroids lowered down to 30 mg daily continue other antibiotics, awaiting further recommendation from thoracic surgery patient may very well and been getting the VATS procedure with wedge resection of left upper lobe nodule and and mediastinoscopy 03/05/17, patient seen and evaluated examined today some level of pain is present on the left thoracic wall subcu emphysema which was noted previously has improved significantly patient does have intermittent cough and chest tightness proceeded he has improved though his been getting Jasper and as needed Dilaudid for adequate pain control. His chest x-ray done today failed to reveal significant pneumothorax a questionable left apical pneumothorax cannot be excluded along with some interstitial edema and basal atelectasis likely related to poor respiratory effort is still waiting for the biopsy results from [facility] with further recommendations pending cardiothoracic surgery is following as well, no more evidence of any hemoptysis is been seen heart rate is better under control but however rhythm remains atrial fibrillation with controlled ventricular response 03/04/2017, patient seen and evaluated examined in ICU he is awake and alert breathing relatively comfortably would get anxious and agitated events from yesterday and last night has been noted, patient to have left left tension pneumothorax as the prior pigtail rest tube was plugged requiring emergent placement off a new 28-Romanian chest tube by me in a stable position. Able to evacuate the tension pneumothorax no more bubbling was seen however patient was trying to get up late last night and to use the urinal disconnected himself over the chest tube developed shortness of breath later on the tube has been reconnected by nurse staff had no more air leak is seen in the pleural VAC. Patient has episodes of intermittent anxiety we will start him on low-dose Xanax patient had low magnesium which is being repleted he is on diet tolerated well patient has been evaluated by Dr. Persaud from thoracic surgery awaiting biopsy results with further interventions pending. His chest x-ray from earlier this morning reviewed no pneumothorax is seen chest tube was stable the right perihilar pneumonia and left lower lobe pneumonia not much change overall stable on antibiotics His labs from today's reviewed borderline hyponatremia noted he is anemic with hemoglobin of 9.6 we'll monitor observe closely Critical care time spent 35 minutes Mr. Rendon is a 67-year-old male with history of severe COPD emphysema and chronic persistent asthma patient also has history of chronic atrial fibrillation and has been attempted on anticoagulants but couldn't tolerate it because of the GI bleeding has been off of blood thinners patient is somewhat unreliable in terms of follow-up he does have a history of prior pneumonia and right-sided nodule however that did resolve though. Patient was sent from the primary care provider to my office with ongoing hemoptysis and also found to have abnormal chest x-ray and CAT scan in fact patient had a PET scan as well which revealed positive uptake in the left upper lobe nodule which was new. Patient also found to have a left upper lobe and right lower lobe infiltrate suggestive of pneumonia given the severe respiratory status patient was considered not to be a candidate for bronchoscopy and biopsies options were discussed with him to optimize therapy and decision was done to admit the patient into the hospital to treat the pneumonia and consideration of biopsy and along the same time. Patient did respond well with the antibiotics with improvement in respiratory status and hemoptysis however interventional radiology was consulted for CT-guided biopsy of left upper lobe nodule they initially attempted a small lymph node on the neck in cervical area which was nondiagnostic followed by CT-guided biopsy of left upper lobe nodule. Patient did have left the pneumothorax which was progressive and eventually giving appearance of a tension pneumothorax requiring emergent placement of a small bore chest tube by interventional radiology the pneumothorax resolved only a small residual 5% pneumothorax was seen subsequent x-ray performed in the afternoon. At that time decision was done to monitor observe and patent patient to be transferred to [facility] for further evaluation and intervention and treatment and possible resection of left upper lobe nodule Objective - Vital Signs Vital signs: Vital Signs Temp 98.4 F 03/06/17 08:00 Pulse 83 03/06/17 09:16 Resp 22 03/06/17 09:00 BP 158/78 03/06/17 09:00 Pulse Ox 92 L 03/06/17 09:00 Intake & Output 03/05/17 03/06/17 03/06/17 18:59 06:59 18:59 Intake Total 1080 840 60 Output Total 1034 2900 660 Balance 46 -2059 -600 Weight 78 kg 77.3 kg Intake: IV 240 240 60 Sodium Chloride 0.9% 1, 240 240 60 000 ml @ 20 mls/hr IV . Q24H RADHA Rx#:[id number] Oral 840 600 Output: Chest Tube Drainage 24 35 0 left chest 24 35 0 Urine 1010 2865 660 Other: Voiding Method Indwelling Catheter Indwelling Catheter Indwelling Catheter # Voids 0 0 # Bowel Movements 0 0 0 - Exam - Constitutional General appearance: cooperative, disheveled, mild distress - EENT Eyes: EOMI, PERRLA, normal appearance Ears: bilateral: normal - Neck Neck: normal ROM Carotids: bilateral: upstroke normal, bruit absent Thyroid: negative: normal size - Respiratory Respiratory: bilateral: diminished, rhonchi, wheezing, prolonged expiration, no significant subcu emphysema is seen, no more bubbling noted on chest tube air column moves fairly well with respiration and pleural VAC - Cardiovascular Rhythm: irregularly irregular Heart sounds: normal: S1, S2 - Gastrointestinal General gastrointestinal: decreased bowel sounds, normal bowel sounds, soft - Integumentary Integumentary: normal, normal turgor - Neurologic Neurologic: CNII-XII intact - Musculoskeletal Musculoskeletal: gait normal, generalized weakness, strength equal bilaterally - Psychiatric Psychiatric: A&O x's 3, appropriate affect, intact judgment & insight - Labs CBC & Chem 7: 03/06/17 04:09 03/06/17 04:09 Labs: Abnormal Lab Results - Last 24 Hours (Table) 03/05/17 03/05/17 03/05/17 Range/Units 11:48 20:25 22:56 RBC (4.30-5.90) m/uL Hgb (13.0-17.5) gm/dL Hct (39.0-53.0) % MCV (80.0-100.0) fL RDW (11.5-15.5) % PT (9.0-12.0) sec INR (<1.2) Sodium (137-145) mmol/L Potassium (3.5-5.1) mmol/L BUN (9-20) mg/dL POC Glucose (mg/dL) 127 H 135 H 119 H (75-99) mg/dL Calcium (8.4-10.2) mg/dL AST (17-59) U/L Total Protein (6.3-8.2) g/dL Albumin (3.5-5.0) g/dL 03/06/17 03/06/17 03/06/17 Range/Units 04:09 04:09 04:09 RBC 2.61 L (4.30-5.90) m/uL Hgb 8.9 L (13.0-17.5) gm/dL Hct 28.5 L (39.0-53.0) % MCV 109.2 H (80.0-100.0) fL RDW 21.7 H (11.5-15.5) % PT 12.4 H (9.0-12.0) sec INR 1.3 H (<1.2) Sodium 134 L (137-145) mmol/L Potassium 5.6 H (3.5-5.1) mmol/L BUN 25 H (9-20) mg/dL POC Glucose (mg/dL) (75-99) mg/dL Calcium 8.3 L (8.4-10.2) mg/dL AST 16 L (17-59) U/L Total Protein 5.8 L (6.3-8.2) g/dL Albumin 2.9 L (3.5-5.0) g/dL 03/06/17 Range/Units 07:31 RBC (4.30-5.90) m/uL Hgb (13.0-17.5) gm/dL Hct (39.0-53.0) % MCV (80.0-100.0) fL RDW (11.5-15.5) % PT (9.0-12.0) sec INR (<1.2) Sodium (137-145) mmol/L Potassium (3.5-5.1) mmol/L BUN (9-20) mg/dL POC Glucose (mg/dL) 135 H (75-99) mg/dL Calcium (8.4-10.2) mg/dL AST (17-59) U/L Total Protein (6.3-8.2) g/dL Albumin (3.5-5.0) g/dL Assessment and Plan Plan: Bilateral pneumonia with hemoptysis Left upper lobe nodule Left-sided iatrogenic tension pneumothorax status post new 28-Romanian left-sided chest tube and removal of old pigtail catheter Severe COPD with chronic hypoxic respiratory failure Chronic atrial fibrillation Plan is to monitor observe patient in ICU thoracic surgery consultation has been obtained patient's is to be evaluated for VATS procedure for left upper lobe nodule resection and possible pleurodesis. We will initiate patient on Xanax maintain patient on peptic ulcer disease prophylaxis continue Lovenox for chronic atrial fibrillation for now reviewed biopsy results, wedge resection of left upper lobe nodule along with mediastinoscopy as per thoracic surgery will follow we'll do a bedside spirometry patient is being maintained on subcu Lovenox will continue the antibiotics breathing treatment was start tapering down the steroids patient will be kept on peptic ulcer disease prophylaxis and supportive care care plan discussed with the nursing staff at length. Time with Patient: Greater than 30
[2017-03-06 12:47] LABS: Glucose,Whole Blood 98 mg/dL (75-99)
[2017-03-06 16:44] LABS: Glucose,Whole Blood 146 mg/dL (75-99)
[2017-03-06 20:43] LABS: Glucose,Whole Blood 102 mg/dL (75-99)
--- NOTE | 2017-03-06 22:00 | P.PN ---
Subjective Principal diagnosis: Acute left tension pneumothorax Patient is a 67-year-old male with a known history of chronic atrial fibrillation not on any anticoagulation, seizure disorder, history of CVA/TIA, history of colon cancer status post resection and history of UT and GERD and left lung nodule who underwent CT-guided biopsy at [facility]. Patient subsequently developed tension pneumothorax and pigtail catheter and was transferred to [facility] for further evaluation by CTsurgery for the treatment of lung nodule. Patient was laced with left-sided chest tube currently. Patient is also on antibiotics for pneumonia treatment. Pulmonary and CT surgery is following this patient. Currently patient denied any worsening chest pain or short of breath. Pain is fairly controlled with pain medications. No fever no chills. Chest x-ray showed resolution of pneumothorax. Interstitial infiltrates in the left lower lobe as well as pulmonary fibrosis. On 03/04/2017 Patient remained on chest tube. Pain is controlled. No chest chest pain or worsening short of breath. No nausea vomiting or abdominal pain. Patient is tolerating diet. Elevating pathology report. No fever no chills. 03/05/2017 Patient denied any worsening pain or short of breath. No fever no chills no acute overnight issues. No nausea vomiting or abdominal pain. 03/06/2017 Patient continues to be on chest tube. Lung biopsy obtained from [facility]'s in conclusion. Pleural fluid cytopathology was sent. Patient continues to be in atrial fibrillation Chest x-ray showed no significant interval change. awaiting final plan from CT surgery. Objective - Vital Signs Vital signs: Vital Signs Temp 98 F 03/06/17 20:00 Pulse 89 03/06/17 20:00 Resp 18 03/06/17 20:00 BP 144/73 03/06/17 20:00 Pulse Ox 96 03/06/17 20:00 Intake & Output 03/06/17 03/06/17 03/07/17 06:59 18:59 06:59 Intake Total 840 160 Output Total 2900 660 Balance -2059 -500 Weight 77.3 kg Intake: IV 240 60 Sodium Chloride 0.9% 1, 240 60 000 ml @ 20 mls/hr IV . Q24H RADHA Rx#:[id number] Oral 600 100 Output: Chest Tube Drainage 35 0 left chest 35 0 Urine 2865 660 Other: Voiding Method Indwelling Catheter Indwelling Catheter # Voids 0 1 1 # Bowel Movements 0 1 - Exam Patient is lying in the bed comfortably, no acute distress, awake alert and oriented.. HEENT: Normocephalic. Neck is supple. Pupils reactive. Nostrils clear. Oral cavity is moist. Ears reveal no drainage. Neck reveals no JVD, carotid bruits, or thyromegaly. CHEST EXAMINATION: Trachea is central. Symmetrical expansion. Left-sided basilar crackles and decreased breath sounds. Left-sided chest tube in place with suction. Tenderness with palpation. CARDIAC: Normal S1, S2 with no gallops. No murmurs ABDOMEN: Soft. Bowel sounds normal. No organomegaly. No abdominal bruits. Extremities reveal no edema. No clubbing or cyanosis Neurologically awake, alert, oriented x3 with well-coordinated movements. Skin: no rash or skin lesions Musculoskeletal: no joint swelling or deformity. - Labs CBC & Chem 7: 03/06/17 04:09 03/06/17 04:09 Labs: Abnormal Lab Results - Last 24 Hours (Table) 03/05/17 03/06/17 03/06/17 Range/Units 22:56 04:09 04:09 RBC 2.61 L (4.30-5.90) m/uL Hgb 8.9 L (13.0-17.5) gm/dL Hct 28.5 L (39.0-53.0) % MCV 109.2 H (80.0-100.0) fL RDW 21.7 H (11.5-15.5) % PT 12.4 H (9.0-12.0) sec INR 1.3 H (<1.2) Sodium (137-145) mmol/L Potassium (3.5-5.1) mmol/L BUN (9-20) mg/dL POC Glucose (mg/dL) 119 H (75-99) mg/dL Calcium (8.4-10.2) mg/dL AST (17-59) U/L Total Protein (6.3-8.2) g/dL Albumin (3.5-5.0) g/dL 03/06/17 03/06/17 03/06/17 Range/Units 04:09 07:31 16:43 RBC (4.30-5.90) m/uL Hgb (13.0-17.5) gm/dL Hct (39.0-53.0) % MCV (80.0-100.0) fL RDW (11.5-15.5) % PT (9.0-12.0) sec INR (<1.2) Sodium 134 L (137-145) mmol/L Potassium 5.6 H (3.5-5.1) mmol/L BUN 25 H (9-20) mg/dL POC Glucose (mg/dL) 135 H 146 H (75-99) mg/dL Calcium 8.3 L (8.4-10.2) mg/dL AST 16 L (17-59) U/L Total Protein 5.8 L (6.3-8.2) g/dL Albumin 2.9 L (3.5-5.0) g/dL 03/06/17 Range/Units 20:41 RBC (4.30-5.90) m/uL Hgb (13.0-17.5) gm/dL Hct (39.0-53.0) % MCV (80.0-100.0) fL RDW (11.5-15.5) % PT (9.0-12.0) sec INR (<1.2) Sodium (137-145) mmol/L Potassium (3.5-5.1) mmol/L BUN (9-20) mg/dL POC Glucose (mg/dL) 102 H (75-99) mg/dL Calcium (8.4-10.2) mg/dL AST (17-59) U/L Total Protein (6.3-8.2) g/dL Albumin (3.5-5.0) g/dL Assessment and Plan Plan: Left lower lobe lung nodule status post CT-guided biopsy Left-sided pneumothorax followed by biopsy. Possible pneumonia Macrocytic anemia Hypovolemic hyponatremia COPD with mild exacerbation History of colon cancer status post resection History of UT Family history of colon cancer GERD Chronic atrial fibrillation. Currently on anticoagulation with Lovenox subcu Noncompliance with follow-up and medications History of CVA with dysarthria and left upper extremity weakness. DVT prophylaxis Plan: Patient will be continued on chest tube with suction. Continue with breathing treatments as needed. Continue with antibiotics in the form of ceftriaxone and azithromycin. Continue with prednisone [address] surgery and pulmonary is following this patient. Chest x-ray showed improvement in pneumothorax. Continue with the pain management and follow closely. Pleural fluid sent to pathology is pending. Final plan from CT surgery. Pulmonary is on board. Further recommendations based on the clinical course. Prognosis is guarded.
[2017-03-06] MEDS: SODIUM CHLORIDE 0.9% 1,000 ML IV SCH (22:56)
[2017-03-07 05:22] LABS: Glucose,Whole Blood 69 mg/dL (75-99)
[2017-03-07] MEDS: INSULIN LISPRO (humaLOG) 300 UNIT/3 ML VIAL SQ SCH ×4 (05:24→21:06)
[2017-03-07 06:15] LABS: Glucose,Whole Blood 103 mg/dL (75-99)
[2017-03-07 06:15] LABS: Glucose,Whole Blood 68 mg/dL (75-99)
[2017-03-07 06:42] LABS: Anisocytosis Moderate; CH 34.9; CHCM 31.8; HCT 31.1 % (39.0-53.0); HDW 4.01; Hypochromasia Moderate; MCH 35.3 pg (25.0-35.0); MCHC 32.3 g/dL (31.0-37.0); MCV 109.5 fL (80.0-100.0); Macrocytosis Marked; Mean Platelet Volume 8.4; Poikilocytosis Moderate; RBC 2.84 m/uL (4.30-5.90); RDW 21.6 % (11.5-15.5); WBC 6.2 k/uL (3.8-10.6); WBC (Perox) 6.34
[2017-03-07 06:43] LABS: INR 1.2 (<1.2); Prothrombin Time 11.7 sec (9.0-12.0)
[2017-03-07 06:55] LABS: ALT 27 U/L (21-72); AST 15 U/L (17-59); Alkaline Phosphatase 48 U/L (38-126); Anion Gap 8 mmol/L; Blood Urea Nitrogen 22 mg/dL (9-20); Calcium 8.7 mg/dL (8.4-10.2); Carbon Dioxide 26 mmol/L (22-30); Chloride 103 mmol/L (98-107); Glucose 77 mg/dL (74-99); Magnesium 1.6 mg/dL (1.6-2.3); Non-African American GFR(MDRD) >60 (>60 ml/min/1.73 sqM); Phosphorus 3.5 mg/dL (2.5-4.5); Potassium 4.6 mmol/L (3.5-5.1); Sodium 137 mmol/L (137-145); Total Bilirubin 0.5 mg/dL (0.2-1.3)
[2017-03-07 06:58] LABS: Add Differential Manual Differential
[2017-03-07 07:05] LABS: Band Neutrophils % 1 %; Manual Review Performed; Myelocytes % 2 %; Nucleated Red Blood Cells 0 /100 WBC (0-0); Total Cells Counted 200
[2017-03-07 07:07] LABS: Polychromasia Present
[2017-03-07] MEDS: IPRATROPIUM-ALBUTEROL 3 ML NEB INHALATION PRN ×3 (07:48→20:32)
[2017-03-07] MEDS: BUDESONIDE 0.5 MG/2 ML NEBU INHALATION SCH ×2 (07:48→20:32)
--- NOTE | 2017-03-07 08:01 | P.PN ---
Subjective Principal diagnosis: Tension pneumothorax, left upper lobe mass, bilateral pneumonia, chronic hypoxic respiratory failure, severe COPD andemphysema, hemoptysis 03/07/2017, patient seen and evaluated exam and on 6 floor he is breathing comfortably less short of breath his cuff congestion has improved he is not coughing purulent sputum anymore hemoptysis has resolved his chest tube has been placed on water seal a chest x-ray performed right in front of me which I have reviewed it no pneumothorax is seen on water seal. Patient is afebrile with the FiO2 is down to 2 L now and sats are 98% hemodynamic status stable except atrial fibrillation with controlled ventricular response on telemetry, the biopsy results are nondiagnostic awaiting further recommendation from cardiothoracic surgery in the meantime we'll taper down the steroids further and hopefully discontinue and next 24 hours 03/06/2017, patient seen and evaluated examined care plan discussed with the nursing staff at length biopsy results are [facility]'s a nondiagnostic tissue. Patient is breathing definitely better he still have left-sided chest tube no a leak is present subcu continue him emphysema which was seen previously is almost resolved no evidence of active hemoptysis seen patient remains in atrial fibrillation with controlled ventricular response she is on subcu Lovenox is also on broad-spectrum antibiotics and oral prednisone and seems to be tolerating very well, we'll start tapering down the steroids lowered down to 30 mg daily continue other antibiotics, awaiting further recommendation from thoracic surgery patient may very well and been getting the VATS procedure with wedge resection of left upper lobe nodule and and mediastinoscopy 03/05/17, patient seen and evaluated examined today some level of pain is present on the left thoracic wall subcu emphysema which was noted previously has improved significantly patient does have intermittent cough and chest tightness proceeded he has improved though his been getting [place] and as needed Dilaudid for adequate pain control. His chest x-ray done today failed to reveal significant pneumothorax a questionable left apical pneumothorax cannot be excluded along with some interstitial edema and basal atelectasis likely related to poor respiratory effort is still waiting for the biopsy results from [facility] with further recommendations pending cardiothoracic surgery is following as well, no more evidence of any hemoptysis is been seen heart rate is better under control but however rhythm remains atrial fibrillation with controlled ventricular response 03/04/2017, patient seen and evaluated examined in ICU he is awake and alert breathing relatively comfortably would get anxious and agitated events from yesterday and last night has been noted, patient to have left left tension pneumothorax as the prior pigtail rest tube was plugged requiring emergent placement off a new 28-Belarusian chest tube by me in a stable position. Able to evacuate the tension pneumothorax no more bubbling was seen however patient was trying to get up late last night and to use the urinal disconnected himself over the chest tube developed shortness of breath later on the tube has been reconnected by nurse staff had no more air leak is seen in the pleural VAC. Patient has episodes of intermittent anxiety we will start him on low-dose Xanax patient had low magnesium which is being repleted he is on diet tolerated well patient has been evaluated by Dr. Persaud from thoracic surgery awaiting biopsy results with further interventions pending. His chest x-ray from earlier this morning reviewed no pneumothorax is seen chest tube was stable the right perihilar pneumonia and left lower lobe pneumonia not much change overall stable on antibiotics His labs from today's reviewed borderline hyponatremia noted he is anemic with hemoglobin of 9.6 we'll monitor observe closely Critical care time spent 35 minutes Mr. Rendon is a 67-year-old male with history of severe COPD emphysema and chronic persistent asthma patient also has history of chronic atrial fibrillation and has been attempted on anticoagulants but couldn't tolerate it because of the GI bleeding has been off of blood thinners patient is somewhat unreliable in terms of follow-up he does have a history of prior pneumonia and right-sided nodule however that did resolve though. Patient was sent from the primary care provider to my office with ongoing hemoptysis and also found to have abnormal chest x-ray and CAT scan in fact patient had a PET scan as well which revealed positive uptake in the left upper lobe nodule which was new. Patient also found to have a left upper lobe and right lower lobe infiltrate suggestive of pneumonia given the severe respiratory status patient was considered not to be a candidate for bronchoscopy and biopsies options were discussed with him to optimize therapy and decision was done to admit the patient into the hospital to treat the pneumonia and consideration of biopsy and along the same time. Patient did respond well with the antibiotics with improvement in respiratory status and hemoptysis however interventional radiology was consulted for CT-guided biopsy of left upper lobe nodule they initially attempted a small lymph node on the neck in cervical area which was nondiagnostic followed by CT-guided biopsy of left upper lobe nodule. Patient did have left the pneumothorax which was progressive and eventually giving appearance of a tension pneumothorax requiring emergent placement of a small bore chest tube by interventional radiology the pneumothorax resolved only a small residual 5% pneumothorax was seen subsequent x-ray performed in the afternoon. At that time decision was done to monitor observe and patent patient to be transferred to [facility] for further evaluation and intervention and treatment and possible resection of left upper lobe nodule Objective - Vital Signs Vital signs: Vital Signs Temp 97.7 F 03/07/17 04:00 Pulse 88 03/07/17 07:51 Resp 18 03/07/17 04:00 BP 121/58 03/07/17 04:00 Pulse Ox 98 03/07/17 07:51 Intake & Output 03/06/17 03/07/17 03/07/17 18:59 06:59 18:59 Intake Total 160 0 Output Total 660 422 Balance -500 -422 Weight 74.5 kg Intake: IV 60 Sodium Chloride 0.9% 1, 60 000 ml @ 20 mls/hr IV . Q24H [facility] Rx#:[id number] Intake, IV Titration 0 Amount Sodium Chloride 0.9% 1, 0 000 ml @ 20 mls/hr IV . Q24H [facility] Rx#:[id number] Oral 100 Output: Chest Tube Drainage 0 22 left chest 0 22 Urine 660 400 Other: Voiding Method Indwelling Catheter Toilet Urinal # Voids 1 2 # Bowel Movements 1 - Exam - Constitutional General appearance: cooperative, disheveled, mild distress - EENT Eyes: EOMI, PERRLA, normal appearance Ears: bilateral: normal - Neck Neck: normal ROM Carotids: bilateral: upstroke normal, bruit absent Thyroid: negative: normal size - Respiratory Respiratory: bilateral: diminished, rhonchi, wheezing, prolonged expiration, no significant subcu emphysema is seen, no more bubbling noted on chest tube air column moves fairly well with respiration and pleural VAC, patient is currently on water seal chest x-ray reviewed - Cardiovascular Rhythm: irregularly irregular Heart sounds: normal: S1, S2 - Gastrointestinal General gastrointestinal: decreased bowel sounds, normal bowel sounds, soft - Integumentary Integumentary: normal, normal turgor - Neurologic Neurologic: CNII-XII intact - Musculoskeletal Musculoskeletal: gait normal, generalized weakness, strength equal bilaterally - Psychiatric Psychiatric: A&O x's 3, appropriate affect, intact judgment & insight - Labs CBC & Chem 7: 03/07/17 05:55 03/07/17 05:55 Labs: Abnormal Lab Results - Last 24 Hours (Table) 03/06/17 03/06/17 03/07/17 Range/Units 16:43 20:41 05:19 RBC (4.30-5.90) m/uL Hgb (13.0-17.5) gm/dL Hct (39.0-53.0) % MCV (80.0-100.0) fL MCH (25.0-35.0) pg RDW (11.5-15.5) % Myelocytes # (Manual) (0) k/uL INR (<1.2) BUN (9-20) mg/dL POC Glucose (mg/dL) 146 H 102 H 69 L (75-99) mg/dL AST (17-59) U/L Total Protein (6.3-8.2) g/dL Albumin (3.5-5.0) g/dL 03/07/17 03/07/17 03/07/17 Range/Units 05:49 05:55 05:55 RBC 2.84 L (4.30-5.90) m/uL Hgb 10.0 L (13.0-17.5) gm/dL Hct 31.1 L (39.0-53.0) % MCV 109.5 H (80.0-100.0) fL MCH 35.3 H (25.0-35.0) pg RDW 21.6 H (11.5-15.5) % Myelocytes # (Manual) 0.12 H (0) k/uL INR 1.2 H (<1.2) BUN (9-20) mg/dL POC Glucose (mg/dL) 68 L (75-99) mg/dL AST (17-59) U/L Total Protein (6.3-8.2) g/dL Albumin (3.5-5.0) g/dL 03/07/17 03/07/17 Range/Units 05:55 06:02 RBC (4.30-5.90) m/uL Hgb (13.0-17.5) gm/dL Hct (39.0-53.0) % MCV (80.0-100.0) fL MCH (25.0-35.0) pg RDW (11.5-15.5) % Myelocytes # (Manual) (0) k/uL INR (<1.2) BUN 22 H (9-20) mg/dL POC Glucose (mg/dL) 103 H (75-99) mg/dL AST 15 L (17-59) U/L Total Protein 6.0 L (6.3-8.2) g/dL Albumin 3.1 L (3.5-5.0) g/dL Assessment and Plan Plan: Bilateral pneumonia with hemoptysis Left upper lobe nodule Left-sided iatrogenic tension pneumothorax status post new 28-Belarusian left-sided chest tube and removal of old pigtail catheter Severe COPD with chronic hypoxic respiratory failure Chronic atrial fibrillation Plan is to monitor observe patient in selective care, thoracic surgery consultation has been obtained patient's is to be evaluated for VATS procedure for left upper lobe nodule resection and possible VATS resection and mediastinoscopy. We will maintain patient on Xanax maintain patient on peptic ulcer disease prophylaxis continue Lovenox for chronic atrial fibrillation for now we'll do a bedside spirometry patient is being maintained on subcu Lovenox will continue the antibiotics breathing treatment was start tapering down the steroids patient will be kept on peptic ulcer disease prophylaxis and supportive care care plan discussed with the nursing staff at length. Time with Patient: Greater than 30
[2017-03-07] MEDS: HYDROcodone/APAP 5-325MG 1 EACH TAB PO PRN ×2 (08:07→12:41)
[2017-03-07] MEDS: DIVALPROEX 500 MG TABLET.DR PO SCH ×2 (08:09→21:30)
[2017-03-07] MEDS: FAMOTIDINE 20 MG/2 ML VIAL IV SCH (08:10)
[2017-03-07] MEDS: predniSONE 20 MG TAB PO SCH (08:10)
[2017-03-07] MEDS: ENOXAPARIN 40 MG/0.4 ML SYRINGE SQ SCH ×2 (08:10→21:30)
[2017-03-07] MEDS: METOPROLOL SUCCINATE (ER) 25 MG TAB.ER.24H PO SCH (08:10)
[2017-03-07] MEDS: carBAMazepine 400 MG TAB.ER.12H PO SCH ×2 (08:11→21:30)
[2017-03-07] MEDS: AZITHROMYCIN 500 MG TAB PO SCH (08:11)
--- NOTE | 2017-03-07 08:22 | XR ---
EXAMINATION TYPE: XR chest 1V DATE OF EXAM: 03/07/2017 COMPARISON: 03/06/2017 HISTORY: Chest tube TECHNIQUE: Single frontal view of the chest is obtained. FINDINGS: Left-sided chest tube remains in place. No sizable pneumothorax evident. Subcutaneous emph ysema, basilar atelectatic changes again noted. Left upper lobe lung mass stable. Interstitium is inc reased. No sizable pneumothorax. Heart size is stable. IMPRESSION: 1. No sizable pneumothorax post chest tube insertion. 2. Diffuse interstitial lung disease and left upper lobe mass stable.
[2017-03-07 11:36] LABS: Glucose,Whole Blood 94 mg/dL (75-99)
--- NOTE | 2017-03-07 13:44 | XR ---
EXAMINATION TYPE: XR chest 1V portable DATE OF EXAM: 03/07/2017 COMPARISON: 03/07/2017 HISTORY: Shortness of breath TECHNIQUE: Single frontal view of the chest is obtained. FINDINGS: Chest tube noted with no sizable pneumothorax. Persistent interstitial changes suggestive pulmonary fibrosis and underlying COPD. Left apical spiculated mass again noted. Subsegmental changes at the left lung base. Heart size stable. Subcutaneous emphysema noted. IMPRESSION: 1. COPD and chronic interstitial pulmonary fibrosis 2. No evidence of pneumothorax
--- NOTE | 2017-03-07 14:12 | P.PN ---
Subjective Principal diagnosis: Chronic atrial fibrillation, seizure disorder, history of colon cancer, history of myocardial infarction, history of stroke, history of GI bleed, history of home oxygen therapy, tobacco dependence in remission, family history of lung cancer, chronic obstructive pulmonary disease. The patient is post CT-guided lung biopsy performed by Dr. Nazario. Subsequently the patient developed a pneumothorax post biopsy and a pigtail drain was placed. He was subsequently transferred to [facility] for observation and further treatment and evaluation. Pathology for the lung biopsy completed [facility] was nondiagnostic. The patient is lying in bed alert and oriented 3. Denies complaints of pain at this time. No acute distress. Objective - Vital Signs Vital signs: Vital Signs Temp 98.2 F 03/07/17 08:00 Pulse 84 03/07/17 08:03 Resp 20 03/07/17 08:00 BP 118/56 03/07/17 08:00 Pulse Ox 98 03/07/17 08:00 Intake & Output 03/06/17 03/07/17 03/07/17 18:59 06:59 18:59 Intake Total 160 0 Output Total 660 422 Balance -500 -422 Weight 74.5 kg Intake: IV 60 Sodium Chloride 0.9% 1, 60 000 ml @ 20 mls/hr IV . Q24H [facility] Rx#:[id number] Intake, IV Titration 0 Amount Sodium Chloride 0.9% 1, 0 000 ml @ 20 mls/hr IV . Q24H [facility] Rx#:[id number] Oral 100 Output: Chest Tube Drainage 0 22 left chest 0 22 Urine 660 400 Other: Voiding Method Indwelling Catheter Toilet Urinal # Voids 1 2 # Bowel Movements 1 - Constitutional General appearance: Present: cooperative, no acute distress - EENT Eyes: Present: PERRLA, normal appearance ENT: Present: hearing grossly normal - Neck Details: No JVD, no lymphadenopathy. - Respiratory Details: Lung sounds with expiratory wheezes throughout, diminished bilateral bases. Respirations are symmetrical and nonlabored. Oxygen saturation are 98% on 2 L nasal cannula. He is achieving 1250 mL on his incentive spirometry. Left pleural chest tubes remained in place and currently is on waterseal. Evacuating thin serous drainage. 120 mL output in the last 24 hours. - Cardiovascular Details: Irregular rhythm and rate. S1 and S2 present, negative for S3, gallop or murmur Remote telemetry showing atrial fibrillation heart rate 92. Sequential compression devices in place to his bilateral lower extremities. No edema present. - Gastrointestinal Gastrointestinal Comment(s): Abdomen is soft, nontender and nondistended. Active bowel sounds all 4 abdominal quadrants. He is tolerating oral intake. - Genitourinary Genitourinary Comment(s): Clear yellow urine. Voiding per urinal - Integumentary Integumentary Comment(s): Left chest tube insertion site clean dry with no drainage noted. Integumentary: Present: normal, normal turgor - Neurologic Neurologic: Present: CNII-XII intact - Musculoskeletal Musculoskeletal: Present: generalized weakness, strength equal bilaterally - Psychiatric Psychiatric: Present: A&O x's 3, appropriate affect, intact judgment & insight - Allied health notes Allied health notes reviewed: nursing - Labs CBC & Chem 7: 03/07/17 05:55 03/07/17 05:55 Labs: Abnormal Lab Results - Last 24 Hours (Table) 03/06/17 03/06/17 03/07/17 Range/Units 16:43 20:41 05:19 RBC (4.30-5.90) m/uL Hgb (13.0-17.5) gm/dL Hct (39.0-53.0) % MCV (80.0-100.0) fL MCH (25.0-35.0) pg RDW (11.5-15.5) % Myelocytes # (Manual) (0) k/uL INR (<1.2) BUN (9-20) mg/dL POC Glucose (mg/dL) 146 H 102 H 69 L (75-99) mg/dL AST (17-59) U/L Total Protein (6.3-8.2) g/dL Albumin (3.5-5.0) g/dL 03/07/17 03/07/17 03/07/17 Range/Units 05:49 05:55 05:55 RBC 2.84 L (4.30-5.90) m/uL Hgb 10.0 L (13.0-17.5) gm/dL Hct 31.1 L (39.0-53.0) % MCV 109.5 H (80.0-100.0) fL MCH 35.3 H (25.0-35.0) pg RDW 21.6 H (11.5-15.5) % Myelocytes # (Manual) 0.12 H (0) k/uL INR 1.2 H (<1.2) BUN (9-20) mg/dL POC Glucose (mg/dL) 68 L (75-99) mg/dL AST (17-59) U/L Total Protein (6.3-8.2) g/dL Albumin (3.5-5.0) g/dL 03/07/17 03/07/17 Range/Units 05:55 06:02 RBC (4.30-5.90) m/uL Hgb (13.0-17.5) gm/dL Hct (39.0-53.0) % MCV (80.0-100.0) fL MCH (25.0-35.0) pg RDW (11.5-15.5) % Myelocytes # (Manual) (0) k/uL INR (<1.2) BUN 22 H (9-20) mg/dL POC Glucose (mg/dL) 103 H (75-99) mg/dL AST 15 L (17-59) U/L Total Protein 6.0 L (6.3-8.2) g/dL Albumin 3.1 L (3.5-5.0) g/dL - Imaging and Cardiology Chest x-ray: report reviewed, image reviewed Assessment and Plan (1) Chronic atrial fibrillation Status: Acute (2) Family history of lung cancer Status: Acute (3) History of GI bleed Status: Acute (4) History of colon cancer Status: Acute (5) History of home oxygen therapy Status: Acute (6) History of myocardial infarction Status: Acute (7) History of stroke Status: Acute (8) Seizure disorder Status: Acute (9) Tobacco dependence in remission Status: Acute (10) COPD (chronic obstructive pulmonary disease) Status: Acute Plan: 1. Pathology results from [facility] were nondiagnostic. 2. Pulmonary management and chest tube recommendations per Dr. Nazario. We will remove the left pleural chest tube today per Dr. Nazario. 3. GI and DVT prophylaxis in place 4. Further treatment recommendations as patient progresses in care. Time with Patient: Less than 30
[2017-03-07] MEDS: ALPRAZolam 0.25 MG TAB PO PRN ×2 (14:38→21:33)
[2017-03-07 16:38] LABS: Glucose,Whole Blood 79 mg/dL (75-99)
[2017-03-07 21:08] LABS: Glucose,Whole Blood 99 mg/dL (75-99)
[2017-03-07] MEDS: FAMOTIDINE 20 MG TAB PO SCH (21:34)
--- NOTE | 2017-03-07 21:41 | P.PN ---
Subjective Principal diagnosis: Acute left tension pneumothorax Patient is a 67-year-old male with a known history of chronic atrial fibrillation not on any anticoagulation, seizure disorder, history of CVA/TIA, history of colon cancer status post resection and history of IN and GERD and left lung nodule who underwent CT-guided biopsy at [facility]. Patient subsequently developed tension pneumothorax and pigtail catheter and was transferred to [facility] for further evaluation by CTsurgery for the treatment of lung nodule. Patient was laced with left-sided chest tube currently. Patient is also on antibiotics for pneumonia treatment. Pulmonary and CT surgery is following this patient. Currently patient denied any worsening chest pain or short of breath. Pain is fairly controlled with pain medications. No fever no chills. Chest x-ray showed resolution of pneumothorax. Interstitial infiltrates in the left lower lobe as well as pulmonary fibrosis. On 03/04/2017 Patient remained on chest tube. Pain is controlled. No chest chest pain or worsening short of breath. No nausea vomiting or abdominal pain. Patient is tolerating diet. Elevating pathology report. No fever no chills. 03/05/2017 Patient denied any worsening pain or short of breath. No fever no chills no acute overnight issues. No nausea vomiting or abdominal pain. 03/06/2017 Patient continues to be on chest tube. Lung biopsy obtained from [facility]'s in conclusion. Pleural fluid cytopathology was sent. Patient continues to be in atrial fibrillation Chest x-ray showed no significant interval change. awaiting final plan from CT surgery. 03/07/2017 Patient was complaining of short of breath and not feeling well today afternoon. No compressive chest pain. CT surgery is planning to remove chest tube today. Chest x-ray showed a showed COPD and chronic interstitial pulmonary fibrosis. No fever no chills.. Objective - Vital Signs Vital signs: Vital Signs Temp 98.3 F 03/07/17 20:00 Pulse 76 03/07/17 20:50 Resp 18 03/07/17 20:00 BP 135/81 03/07/17 20:00 Pulse Ox 94 L 03/07/17 20:00 Intake & Output 03/07/17 03/07/17 03/08/17 06:59 18:59 06:59 Intake Total 0 472 Output Total 422 Balance -422 472 Weight 74.5 kg Intake: Intake, IV Titration 0 Amount Sodium Chloride 0.9% 1, 0 000 ml @ 20 mls/hr IV . Q24H [facility] Rx#:[id number] Oral 472 Output: Chest Tube Drainage 22 left chest 22 Urine 400 Other: Voiding Method Toilet Toilet Urinal # Voids 2 1 # Bowel Movements 1 - Exam Patient is lying in the bed comfortably, no acute distress, awake alert and oriented.. HEENT: Normocephalic. Neck is supple. Pupils reactive. Nostrils clear. Oral cavity is moist. Ears reveal no drainage. Neck reveals no JVD, carotid bruits, or thyromegaly. CHEST EXAMINATION: Trachea is central. Symmetrical expansion. Left-sided basilar crackles and decreased breath sounds. Left-sided chest tube in place with suction. Tenderness with palpation. CARDIAC: Normal S1, S2 with no gallops. No murmurs ABDOMEN: Soft. Bowel sounds normal. No organomegaly. No abdominal bruits. Extremities reveal no edema. No clubbing or cyanosis Neurologically awake, alert, oriented x3 with well-coordinated movements. Skin: no rash or skin lesions Musculoskeletal: no joint swelling or deformity. - Labs CBC & Chem 7: 03/07/17 05:55 03/07/17 05:55 Labs: Abnormal Lab Results - Last 24 Hours (Table) 03/07/17 03/07/17 03/07/17 Range/Units 05:19 05:49 05:55 RBC 2.84 L (4.30-5.90) m/uL Hgb 10.0 L (13.0-17.5) gm/dL Hct 31.1 L (39.0-53.0) % MCV 109.5 H (80.0-100.0) fL MCH 35.3 H (25.0-35.0) pg RDW 21.6 H (11.5-15.5) % Myelocytes # (Manual) 0.12 H (0) k/uL INR (<1.2) BUN (9-20) mg/dL POC Glucose (mg/dL) 69 L 68 L (75-99) mg/dL AST (17-59) U/L Total Protein (6.3-8.2) g/dL Albumin (3.5-5.0) g/dL 03/07/17 03/07/17 03/07/17 Range/Units 05:55 05:55 06:02 RBC (4.30-5.90) m/uL Hgb (13.0-17.5) gm/dL Hct (39.0-53.0) % MCV (80.0-100.0) fL MCH (25.0-35.0) pg RDW (11.5-15.5) % Myelocytes # (Manual) (0) k/uL INR 1.2 H (<1.2) BUN 22 H (9-20) mg/dL POC Glucose (mg/dL) 103 H (75-99) mg/dL AST 15 L (17-59) U/L Total Protein 6.0 L (6.3-8.2) g/dL Albumin 3.1 L (3.5-5.0) g/dL Assessment and Plan Plan: Left lower lobe lung nodule status post CT-guided biopsy Left-sided pneumothorax followed by biopsy. Possible pneumonia Macrocytic anemia Hypovolemic hyponatremia COPD with mild exacerbation History of colon cancer status post resection History of IN Family history of colon cancer GERD Chronic atrial fibrillation. Currently on anticoagulation with Lovenox subcu Noncompliance with follow-up and medications History of CVA with dysarthria and left upper extremity weakness. DVT prophylaxis Plan: Patient will be continued on chest tube with suction. Continue with breathing treatments as needed. Continue with antibiotics in the form of ceftriaxone and azithromycin. Continue with prednisone 40 mg daily. Continue anticoagulation. CT surgery and pulmonary is following this patient. Chest x-ray showed improvement in pneumothorax. Continue with the pain management and follow closely. Pleural fluid sent to pathology is pending. Final plan from CT surgery. Pulmonary is on board. Further recommendations based on the clinical course. Prognosis is guarded.
[2017-03-07] MEDS: SODIUM CHLORIDE 0.9% 1,000 ML IV SCH (23:01)
[2017-03-08] MEDS: INSULIN LISPRO (humaLOG) 300 UNIT/3 ML VIAL SQ SCH ×4 (06:13→21:13)
[2017-03-08 06:20] LABS: Glucose,Whole Blood 90 mg/dL (75-99)
[2017-03-08 06:34] LABS: ALT 26 U/L (21-72); AST 17 U/L (17-59); Alkaline Phosphatase 44 U/L (38-126); Anion Gap 8 mmol/L; Blood Urea Nitrogen 22 mg/dL (9-20); Calcium 8.7 mg/dL (8.4-10.2); Carbon Dioxide 22 mmol/L (22-30); Chloride 104 mmol/L (98-107); Glucose 85 mg/dL (74-99); Non-African American GFR(MDRD) >60 (>60 ml/min/1.73 sqM); Potassium 4.3 mmol/L (3.5-5.1); Sodium 134 mmol/L (137-145); Total Bilirubin 0.4 mg/dL (0.2-1.3); Total Protein 5.8 g/dL (6.3-8.2)
[2017-03-08 06:43] LABS: INR 1.1 (<1.2); Prothrombin Time 11.4 sec (9.0-12.0)
--- NOTE | 2017-03-08 07:19 | P.PN ---
Subjective Principal diagnosis: Chronic atrial fibrillation, seizure disorder, history of colon cancer, history of myocardial infarction, history of stroke, history of GI bleed, history of home oxygen therapy, tobacco dependence in remission, family history of lung cancer, chronic obstructive pulmonary disease. Status post post CT-guided lung biopsy performed by Dr. Nazario. Subsequently developed left-sided pneumothorax with placement of pigtail drain. Had continued pneumothorax with removal of pigtail drain and placement of left- sided chest tube. Patient sitting up in bed in no acute distress. Currently eating breakfast. No complaints at this time. Left pleural chest tube was discontinued yesterday. Pathology was nondiagnostic. Objective - Vital Signs Vital signs: Vital Signs Temp 97.7 F 03/08/17 04:00 Pulse 94 03/08/17 04:00 Resp 18 03/08/17 04:00 BP 121/63 03/08/17 04:00 Pulse Ox 98 03/08/17 04:00 Intake & Output 03/07/17 03/08/17 03/08/17 18:59 06:59 18:59 Intake Total 472 Output Total 250 Balance 472 -250 Weight 73.1 kg Intake: Oral 472 Output: Urine 250 Other: Voiding Method Toilet Toilet # Voids 1 2 # Bowel Movements 1 1 - Constitutional General appearance: Present: cooperative, disheveled, no acute distress - Respiratory Details: Lungs sounds diminished bilaterally. Respirations even, nonlabored. Currently on room air with oxygen saturation 95%. Able to achieve 2250 mL on his incentive spirometry. - Cardiovascular Details: S1, S2 present. Irregular rate and rhythm, atrial fibrillation on telemetry. Palpable pulses bilaterally. No edema present. SCDs present. - Gastrointestinal Gastrointestinal Comment(s): Abdomen soft, nontender, nondistended. Active bowel sounds 4 quadrants. Tolerating diet. - Genitourinary Genitourinary Comment(s): Continues to void clear, yellow urine per urinal. - Neurologic Neurologic: Present: CNII-XII intact - Musculoskeletal Musculoskeletal: Present: gait normal, strength equal bilaterally - Psychiatric Psychiatric: Present: A&O x's 3, appropriate affect, intact judgment & insight - Allied health notes Allied health notes reviewed: nursing - Labs CBC & Chem 7: 03/07/17 05:55 03/08/17 05:37 Labs: Abnormal Lab Results - Last 24 Hours (Table) 03/07/17 03/08/17 Range/Units 05:55 05:37 Myelocytes # (Manual) 0.12 H (0) k/uL Sodium 134 L (137-145) mmol/L BUN 22 H (9-20) mg/dL Total Protein 5.8 L (6.3-8.2) g/dL Albumin 2.9 L (3.5-5.0) g/dL - Imaging and Cardiology Chest x-ray: image reviewed Assessment and Plan (1) Chronic atrial fibrillation Status: Acute (2) Seizure disorder Status: Acute (3) History of colon cancer Status: Acute (4) History of myocardial infarction Status: Acute (5) History of stroke Status: Acute (6) History of GI bleed Status: Acute (7) History of home oxygen therapy Status: Acute (8) Tobacco dependence in remission Status: Acute (9) Family history of lung cancer Status: Acute (10) COPD (chronic obstructive pulmonary disease) Status: Acute Plan: 1. Pathology from CT-guided biopsy was nondiagnostic. Plan for left video- assisted thoracoscopic wedge biopsy on Monday. 2. Encourage incentive spirometry use. 3. Medical comorbidities to be managed by primary care service. 4. Antibiotics, steroids, bronchodilators per pulmonary service. 5. GI for/DVT prophylaxis. 6. Increase activity, ambulate in hallway. 7. Further recommendations as patient progresses. Time with Patient: Greater than 30
--- NOTE | 2017-03-08 08:21 | XR ---
EXAMINATION TYPE: XR chest 2V DATE OF EXAM: 03/08/2017 HISTORY: Shortness of breath. COMPARISON: 03/07/2017 TECHNIQUE: Single view of the chest is submitted. FINDINGS: Left-sided chest tube has been removed without evidence for recurrent pneumothorax. Small amount of s ubcutaneous emphysema seen along the left chest wall. Demonstrated are scattered senescent parenchymal change. Improving left basilar infiltrate and/or atelectasis. Stable chronic density right upper lobe. The heart is stable. Hilar and mediastinal structures are within normal limits. Degenerative changes are seen of the dorsal spine. IMPRESSION: 1. Left-sided chest tube has been removed without evidence for recurrent pneumothorax. Small amount of subcutaneous emphysema seen along the left chest wall. 2.Improving left basilar infiltrate and/or atelectasis. Stable chronic density right upper lobe.
[2017-03-08] MEDS: HYDROcodone/APAP 5-325MG 1 EACH TAB PO PRN (09:07)
[2017-03-08] MEDS: carBAMazepine 400 MG TAB.ER.12H PO SCH ×2 (09:08→20:07)
[2017-03-08] MEDS: ENOXAPARIN 40 MG/0.4 ML SYRINGE SQ SCH ×2 (09:08→20:07)
[2017-03-08] MEDS: DIVALPROEX 500 MG TABLET.DR PO SCH ×2 (09:08→20:07)
[2017-03-08] MEDS: METOPROLOL SUCCINATE (ER) 25 MG TAB.ER.24H PO SCH (09:08)
[2017-03-08] MEDS: predniSONE 20 MG TAB PO SCH (09:08)
[2017-03-08] MEDS: IPRATROPIUM-ALBUTEROL 3 ML NEB INHALATION PRN ×4 (09:09→20:53)
[2017-03-08] MEDS: FAMOTIDINE 20 MG TAB PO SCH ×2 (09:09→20:07)
[2017-03-08] MEDS: BUDESONIDE 0.5 MG/2 ML NEBU INHALATION SCH ×2 (09:09→20:53)
[2017-03-08] MEDS: AZITHROMYCIN 500 MG TAB PO SCH (09:24)
--- NOTE | 2017-03-08 11:12 | P.PN ---
Subjective 03/08/17 patient is being seen examined and evaluated today on the sixth floor. His chest tube was removed yesterday. Dressing is clean dry and intact. Chest x-ray was reviewed from this morning does show that the left-sided chest tube has been removed without evidence for recurrent pneumothorax. Small amount of subcutaneous emphysema seen along the left chest wall. Improving left basilar infiltrate and/or atelectasis. Stable chronic density in the right upper lobe. Upon examination patient sitting up in bed on room air. He has been using supplemental oxygen on and off per the nursing staff for comfort. His oxygen saturations have remained in the mid 90s. He is afebrile, no overnight events. Patient is scheduled to go for a left video-assisted thoracoscopic wedge biopsy on Monday. 03/07/2017, patient seen and evaluated exam and on 6 floor he is breathing comfortably less short of breath his cuff congestion has improved he is not coughing purulent sputum anymore hemoptysis has resolved his chest tube has been placed on water seal a chest x-ray performed right in front of me which I have reviewed it no pneumothorax is seen on water seal. Patient is afebrile with the FiO2 is down to 2 L now and sats are 98% hemodynamic status stable except atrial fibrillation with controlled ventricular response on telemetry, the biopsy results are nondiagnostic awaiting further recommendation from cardiothoracic surgery in the meantime we'll taper down the steroids further and hopefully discontinue and next 24 hours 03/06/2017, patient seen and evaluated examined care plan discussed with the nursing staff at length biopsy results are [facility]'s a nondiagnostic tissue. Patient is breathing definitely better he still have left-sided chest tube no a leak is present subcu continue him emphysema which was seen previously is almost resolved no evidence of active hemoptysis seen patient remains in atrial fibrillation with controlled ventricular response she is on subcu Lovenox is also on broad-spectrum antibiotics and oral prednisone and seems to be tolerating very well, we'll start tapering down the steroids lowered down to 30 mg daily continue other antibiotics, awaiting further recommendation from thoracic surgery patient may very well and been getting the VATS procedure with wedge resection of left upper lobe nodule and and mediastinoscopy 03/05/17, patient seen and evaluated examined today some level of pain is present on the left thoracic wall subcu emphysema which was noted previously has improved significantly patient does have intermittent cough and chest tightness proceeded he has improved though his been getting Nemo and as needed Dilaudid for adequate pain control. His chest x-ray done today failed to reveal significant pneumothorax a questionable left apical pneumothorax cannot be excluded along with some interstitial edema and basal atelectasis likely related to poor respiratory effort is still waiting for the biopsy results from [facility] with further recommendations pending cardiothoracic surgery is following as well, no more evidence of any hemoptysis is been seen heart rate is better under control but however rhythm remains atrial fibrillation with controlled ventricular response 03/04/2017, patient seen and evaluated examined in ICU he is awake and alert breathing relatively comfortably would get anxious and agitated events from yesterday and last night has been noted, patient to have left left tension pneumothorax as the prior pigtail rest tube was plugged requiring emergent placement off a new 28-Nepali chest tube by me in a stable position. Able to evacuate the tension pneumothorax no more bubbling was seen however patient was trying to get up late last night and to use the urinal disconnected himself over the chest tube developed shortness of breath later on the tube has been reconnected by nurse staff had no more air leak is seen in the pleural VAC. Patient has episodes of intermittent anxiety we will start him on low-dose Xanax patient had low magnesium which is being repleted he is on diet tolerated well patient has been evaluated by Dr. Persaud from thoracic surgery awaiting biopsy results with further interventions pending. His chest x-ray from earlier this morning reviewed no pneumothorax is seen chest tube was stable the right perihilar pneumonia and left lower lobe pneumonia not much change overall stable on antibiotics His labs from today's reviewed borderline hyponatremia noted he is anemic with hemoglobin of 9.6 we'll monitor observe closely Critical care time spent 35 minutes Mr. Rendon is a 67-year-old male with history of severe COPD emphysema and chronic persistent asthma patient also has history of chronic atrial fibrillation and has been attempted on anticoagulants but couldn't tolerate it because of the GI bleeding has been off of blood thinners patient is somewhat unreliable in terms of follow-up he does have a history of prior pneumonia and right-sided nodule however that did resolve though. Patient was sent from the primary care provider to my office with ongoing hemoptysis and also found to have abnormal chest x-ray and CAT scan in fact patient had a PET scan as well which revealed positive uptake in the left upper lobe nodule which was new. Patient also found to have a left upper lobe and right lower lobe infiltrate suggestive of pneumonia given the severe respiratory status patient was considered not to be a candidate for bronchoscopy and biopsies options were discussed with him to optimize therapy and decision was done to admit the patient into the hospital to treat the pneumonia and consideration of biopsy and along the same time. Patient did respond well with the antibiotics with improvement in respiratory status and hemoptysis however interventional radiology was consulted for CT-guided biopsy of left upper lobe nodule they initially attempted a small lymph node on the neck in cervical area which was nondiagnostic followed by CT-guided biopsy of left upper lobe nodule. Patient did have left the pneumothorax which was progressive and eventually giving appearance of a tension pneumothorax requiring emergent placement of a small bore chest tube by interventional radiology the pneumothorax resolved only a small residual 5% pneumothorax was seen subsequent x-ray performed in the afternoon. At that time decision was done to monitor observe and patent patient to be transferred to [facility] for further evaluation and intervention and treatment and possible resection of left upper lobe nodule Objective - Vital Signs Vital signs: Vital Signs Temp 97.8 F 03/08/17 09:00 Pulse 88 03/08/17 09:26 Resp 20 03/08/17 09:00 BP 116/66 03/08/17 09:00 Pulse Ox 97 03/08/17 09:00 Intake & Output 03/07/17 03/08/17 03/08/17 18:59 06:59 18:59 Intake Total 472 236 Output Total 250 200 Balance 472 -250 36 Weight 73.1 kg Intake: Oral 472 236 Output: Urine 250 200 Other: Voiding Method Toilet Toilet Toilet # Voids 1 2 # Bowel Movements 1 1 - Exam - Exam - Constitutional General appearance: cooperative, disheveled, mild distress - EENT Eyes: EOMI, PERRLA, normal appearance Ears: bilateral: normal - Neck Neck: normal ROM Carotids: bilateral: upstroke normal, bruit absent Thyroid: negative: normal size - Respiratory Respiratory: bilateral: diminished, rhonchi, wheezing, prolonged expiration, no significant subcu emphysema is seen, chest tube has been removed. Dressing to chest tube site clean dry and intact. Chest x-ray reviewed - Cardiovascular Rhythm: irregularly irregular Heart sounds: normal: S1, S2 - Gastrointestinal General gastrointestinal: decreased bowel sounds, normal bowel sounds, soft - Integumentary Integumentary: normal, normal turgor - Neurologic Neurologic: CNII-XII intact - Musculoskeletal Musculoskeletal: gait normal, generalized weakness, strength equal bilaterally - Psychiatric Psychiatric: A&O x's 3, appropriate affect, intact judgment & insight - Labs CBC & Chem 7: 03/07/17 05:55 03/08/17 05:37 Labs: Abnormal Lab Results - Last 24 Hours (Table) 03/08/17 Range/Units 05:37 Sodium 134 L (137-145) mmol/L BUN 22 H (9-20) mg/dL Total Protein 5.8 L (6.3-8.2) g/dL Albumin 2.9 L (3.5-5.0) g/dL Assessment and Plan Plan: Assessment Bilateral pneumonia with hemoptysis Left upper lobe nodule Left-sided iatrogenic tension pneumothorax status post new 28-Nepali left-sided chest tube and removal of old pigtail catheter Severe COPD with chronic hypoxic respiratory failure Chronic atrial fibrillation Plan Plan is to monitor observe patient in selective care, thoracic surgery consultation has been obtained patient's is to be evaluated for VATS procedure for left upper lobe nodule resection and possible VATS resection and mediastinoscopy. We will maintain patient on Xanax maintain patient on peptic ulcer disease prophylaxis continue Lovenox for chronic atrial fibrillation for now. we'll do a bedside spirometry patient is being maintained on subcu Lovenox will continue the antibiotics breathing treatment was start tapering down the steroids patient will be kept on peptic ulcer disease prophylaxis and supportive care care plan discussed with the nursing staff at length. Increase activity as tolerated. Further recommendations pending. I performed an examination of the patient and discussed their management with the nurse practitioner. I have reviewed the nurse practitioner's note and agree with the documented findings and plan of care.
[2017-03-08 11:33] LABS: Glucose,Whole Blood 151 mg/dL (75-99)
[2017-03-08 16:43] LABS: Glucose,Whole Blood 99 mg/dL (75-99)
[2017-03-08 20:55] LABS: Glucose,Whole Blood 107 mg/dL (75-99)
[2017-03-08] MEDS: SODIUM CHLORIDE 0.9% 1,000 ML IV SCH (21:13)
[2017-03-08] MEDS: HYDROmorphone 1 MG/ML 1 ML SYRINGE IVP PRN (23:31)
[2017-03-09 06:02] LABS: Glucose,Whole Blood 92 mg/dL (75-99)
[2017-03-09] MEDS: INSULIN LISPRO (humaLOG) 300 UNIT/3 ML VIAL SQ SCH ×4 (06:18→21:09)
[2017-03-09] MEDS: BUDESONIDE 0.5 MG/2 ML NEBU INHALATION SCH ×2 (07:22→18:59)
[2017-03-09] MEDS: IPRATROPIUM-ALBUTEROL 3 ML NEB INHALATION PRN ×4 (07:23→18:59)
[2017-03-09] MEDS: AZITHROMYCIN 500 MG TAB PO SCH (08:12)
[2017-03-09] MEDS: DIVALPROEX 500 MG TABLET.DR PO SCH ×2 (08:12→20:27)
[2017-03-09] MEDS: ENOXAPARIN 40 MG/0.4 ML SYRINGE SQ SCH ×2 (08:12→20:27)
[2017-03-09] MEDS: carBAMazepine 400 MG TAB.ER.12H PO SCH ×2 (08:12→20:27)
[2017-03-09] MEDS: predniSONE 20 MG TAB PO SCH (08:13)
[2017-03-09] MEDS: METOPROLOL SUCCINATE (ER) 25 MG TAB.ER.24H PO SCH (08:13)
[2017-03-09] MEDS: FAMOTIDINE 20 MG TAB PO SCH ×2 (08:13→20:27)
--- NOTE | 2017-03-09 08:48 | P.PN ---
Subjective Principal diagnosis: Chronic atrial fibrillation, seizure disorder, history of colon cancer, history of myocardial infarction, history of stroke, history of GI bleed, history of home oxygen therapy, tobacco dependence in remission, family history of lung cancer, chronic obstructive pulmonary disease. Status post post CT-guided lung biopsy performed by Dr. Nazario. Subsequently developed left-sided pneumothorax with placement of pigtail drain. Had continued pneumothorax with removal of pigtail drain and placement of left- sided chest tube. Patient sitting up in bed in no acute distress. No complaints at this time. Objective - Vital Signs Vital signs: Vital Signs Temp 98.1 F 03/09/17 08:00 Pulse 109 H 03/09/17 08:00 Resp 18 03/09/17 07:23 BP 129/58 03/09/17 08:00 Pulse Ox 94 L 03/09/17 08:00 Intake & Output 03/08/17 03/09/17 03/09/17 18:59 06:59 18:59 Intake Total 473 600 236 Output Total 950 Balance -477 600 236 Weight 72.3 kg Intake: Oral 473 600 236 Output: Urine 950 Other: Voiding Method Toilet Toilet Urinal - Constitutional General appearance: Present: cooperative, no acute distress - Respiratory Details: Lungs sounds diminished bilaterally. Respirations even, nonlabored. Currently on 2 L nasal cannula with oxygen saturation 98%. - Cardiovascular Details: S1, S2 present. Irregular rate and rhythm, atrial fibrillation on telemetry. Palpable pulses bilaterally. No edema present. - Gastrointestinal Gastrointestinal Comment(s): Abdomen soft, nontender, nondistended. Active bowel sounds 4 quadrants. Tolerating diet. - Genitourinary Genitourinary Comment(s): Voiding clear, yellow urine. - Neurologic Neurologic: Present: CNII-XII intact - Musculoskeletal Musculoskeletal: Present: strength equal bilaterally - Psychiatric Psychiatric: Present: A&O x's 3, appropriate affect, intact judgment & insight - Allied health notes Allied health notes reviewed: nursing - Labs CBC & Chem 7: 03/07/17 05:55 03/08/17 05:37 Labs: Abnormal Lab Results - Last 24 Hours (Table) 03/08/17 03/08/17 Range/Units 11:32 20:53 POC Glucose (mg/dL) 151 H 107 H (75-99) mg/dL Assessment and Plan (1) Chronic atrial fibrillation Status: Acute (2) Seizure disorder Status: Acute (3) History of colon cancer Status: Acute (4) History of myocardial infarction Status: Acute (5) History of stroke Status: Acute (6) History of GI bleed Status: Acute (7) History of home oxygen therapy Status: Acute (8) Tobacco dependence in remission Status: Acute (9) Family history of lung cancer Status: Acute (10) COPD (chronic obstructive pulmonary disease) Status: Acute Plan: 1. Pathology from CT-guided biopsy was nondiagnostic. Plan for left video- assisted thoracoscopic wedge biopsy on Monday. 2. Encourage incentive spirometry use. 3. Medical comorbidities to be managed by primary care service. 4. Antibiotics, steroids, bronchodilators per pulmonary service. 5. GI for/DVT prophylaxis. 6. Increase activity, ambulate in hallway. 7. Further recommendations as patient progresses. Time with Patient: Greater than 30
--- NOTE | 2017-03-09 09:50 | P.PN ---
Subjective 03/09/17- patient is being seen examined and evaluated today on the sixth floor. Upon examination the patient is resting up in bed on 2 L of supplemental oxygen via nasal cannula, oxygen saturations in the high 90s. Chest tube site remains clean dry and intact. Patient is being scheduled to undergo VATS procedure tomorrow with cardiothoracic surgery. He is afebrile, no overnight events. 03/08/17 patient is being seen examined and evaluated today on the sixth floor. His chest tube was removed yesterday. Dressing is clean dry and intact. Chest x-ray was reviewed from this morning does show that the left-sided chest tube has been removed without evidence for recurrent pneumothorax. Small amount of subcutaneous emphysema seen along the left chest wall. Improving left basilar infiltrate and/or atelectasis. Stable chronic density in the right upper lobe. Upon examination patient sitting up in bed on room air. He has been using supplemental oxygen on and off per the nursing staff for comfort. His oxygen saturations have remained in the mid 90s. He is afebrile, no overnight events. Patient is scheduled to go for a left video-assisted thoracoscopic wedge biopsy on Monday. 03/07/2017, patient seen and evaluated exam and on 6 floor he is breathing comfortably less short of breath his cuff congestion has improved he is not coughing purulent sputum anymore hemoptysis has resolved his chest tube has been placed on water seal a chest x-ray performed right in front of me which I have reviewed it no pneumothorax is seen on water seal. Patient is afebrile with the FiO2 is down to 2 L now and sats are 98% hemodynamic status stable except atrial fibrillation with controlled ventricular response on telemetry, the biopsy results are nondiagnostic awaiting further recommendation from cardiothoracic surgery in the meantime we'll taper down the steroids further and hopefully discontinue and next 24 hours 03/06/2017, patient seen and evaluated examined care plan discussed with the nursing staff at length biopsy results are [facility]'s a nondiagnostic tissue. Patient is breathing definitely better he still have left-sided chest tube no a leak is present subcu continue him emphysema which was seen previously is almost resolved no evidence of active hemoptysis seen patient remains in atrial fibrillation with controlled ventricular response she is on subcu Lovenox is also on broad-spectrum antibiotics and oral prednisone and seems to be tolerating very well, we'll start tapering down the steroids lowered down to 30 mg daily continue other antibiotics, awaiting further recommendation from thoracic surgery patient may very well and been getting the VATS procedure with wedge resection of left upper lobe nodule and and mediastinoscopy 03/05/17, patient seen and evaluated examined today some level of pain is present on the left thoracic wall subcu emphysema which was noted previously has improved significantly patient does have intermittent cough and chest tightness proceeded he has improved though his been getting Latexo and as needed Dilaudid for adequate pain control. His chest x-ray done today failed to reveal significant pneumothorax a questionable left apical pneumothorax cannot be excluded along with some interstitial edema and basal atelectasis likely related to poor respiratory effort is still waiting for the biopsy results from [facility] with further recommendations pending cardiothoracic surgery is following as well, no more evidence of any hemoptysis is been seen heart rate is better under control but however rhythm remains atrial fibrillation with controlled ventricular response 03/04/2017, patient seen and evaluated examined in ICU he is awake and alert breathing relatively comfortably would get anxious and agitated events from yesterday and last night has been noted, patient to have left left tension pneumothorax as the prior pigtail rest tube was plugged requiring emergent placement off a new 28-Syrian chest tube by me in a stable position. Able to evacuate the tension pneumothorax no more bubbling was seen however patient was trying to get up late last night and to use the urinal disconnected himself over the chest tube developed shortness of breath later on the tube has been reconnected by nurse staff had no more air leak is seen in the pleural VAC. Patient has episodes of intermittent anxiety we will start him on low-dose Xanax patient had low magnesium which is being repleted he is on diet tolerated well patient has been evaluated by Dr. Persaud from thoracic surgery awaiting biopsy results with further interventions pending. His chest x-ray from earlier this morning reviewed no pneumothorax is seen chest tube was stable the right perihilar pneumonia and left lower lobe pneumonia not much change overall stable on antibiotics His labs from today's reviewed borderline hyponatremia noted he is anemic with hemoglobin of 9.6 we'll monitor observe closely Critical care time spent 35 minutes Mr. Rendon is a 67-year-old male with history of severe COPD emphysema and chronic persistent asthma patient also has history of chronic atrial fibrillation and has been attempted on anticoagulants but couldn't tolerate it because of the GI bleeding has been off of blood thinners patient is somewhat unreliable in terms of follow-up he does have a history of prior pneumonia and right-sided nodule however that did resolve though. Patient was sent from the primary care provider to my office with ongoing hemoptysis and also found to have abnormal chest x-ray and CAT scan in fact patient had a PET scan as well which revealed positive uptake in the left upper lobe nodule which was new. Patient also found to have a left upper lobe and right lower lobe infiltrate suggestive of pneumonia given the severe respiratory status patient was considered not to be a candidate for bronchoscopy and biopsies options were discussed with him to optimize therapy and decision was done to admit the patient into the hospital to treat the pneumonia and consideration of biopsy and along the same time. Patient did respond well with the antibiotics with improvement in respiratory status and hemoptysis however interventional radiology was consulted for CT-guided biopsy of left upper lobe nodule they initially attempted a small lymph node on the neck in cervical area which was nondiagnostic followed by CT-guided biopsy of left upper lobe nodule. Patient did have left the pneumothorax which was progressive and eventually giving appearance of a tension pneumothorax requiring emergent placement of a small bore chest tube by interventional radiology the pneumothorax resolved only a small residual 5% pneumothorax was seen subsequent x-ray performed in the afternoon. At that time decision was done to monitor observe and patent patient to be transferred to [facility] for further evaluation and intervention and treatment and possible resection of left upper lobe nodule Objective - Vital Signs Vital signs: Vital Signs Temp 98.1 F 03/09/17 08:00 Pulse 109 H 03/09/17 08:00 Resp 18 03/09/17 07:23 BP 129/58 03/09/17 08:00 Pulse Ox 94 L 03/09/17 08:00 Intake & Output 03/08/17 03/09/17 03/09/17 18:59 06:59 18:59 Intake Total 473 600 236 Output Total 950 Balance -477 600 236 Weight 72.3 kg Intake: Oral 473 600 236 Output: Urine 950 Other: Voiding Method Toilet Toilet Urinal - Exam - Exam - Constitutional General appearance: cooperative, disheveled, mild distress - EENT Eyes: EOMI, PERRLA, normal appearance Ears: bilateral: normal - Neck Neck: normal ROM Carotids: bilateral: upstroke normal, bruit absent Thyroid: negative: normal size - Respiratory Respiratory: bilateral: diminished, rhonchi, wheezing, prolonged expiration, no significant subcu emphysema is seen, chest tube has been removed. Dressing to chest tube site clean dry and intact. - Cardiovascular Rhythm: irregularly irregular Heart sounds: normal: S1, S2 - Gastrointestinal General gastrointestinal: decreased bowel sounds, normal bowel sounds, soft - Integumentary Integumentary: normal, normal turgor - Neurologic Neurologic: CNII-XII intact - Musculoskeletal Musculoskeletal: gait normal, generalized weakness, strength equal bilaterally - Psychiatric Psychiatric: A&O x's 3, appropriate affect, intact judgment & insight - Labs CBC & Chem 7: 03/07/17 05:55 03/08/17 05:37 Labs: Abnormal Lab Results - Last 24 Hours (Table) 03/08/17 03/08/17 Range/Units 11:32 20:53 POC Glucose (mg/dL) 151 H 107 H (75-99) mg/dL Assessment and Plan Plan: Assessment Bilateral pneumonia with hemoptysis Left upper lobe nodule Left-sided iatrogenic tension pneumothorax status post new 28-Syrian left-sided chest tube and removal of old pigtail catheter Severe COPD with chronic hypoxic respiratory failure Chronic atrial fibrillation Plan Plan is to monitor observe patient in selective care, thoracic surgery consultation has been obtained patient's is to be evaluated for VATS procedure for left upper lobe nodule resection and possible VATS resection and mediastinoscopy. We will maintain patient on Xanax maintain patient on peptic ulcer disease prophylaxis continue Lovenox for chronic atrial fibrillation for now. we'll do a bedside spirometry patient is being maintained on subcu Lovenox will continue the antibiotics breathing treatment, steroids have been switched to oral. patient will be kept on peptic ulcer disease prophylaxis and supportive care care plan discussed with the nursing staff at length. Increase activity as tolerated. Continue pulmonary hygiene and supportive care. Supplemental oxygen to maintain oxygen saturations greater than 92%. Further recommendations pending. I performed an examination of the patient and discussed their management with the nurse practitioner. I have reviewed the nurse practitioner's note and agree with the documented findings and plan of care.
[2017-03-09 11:30] LABS: Glucose,Whole Blood 133 mg/dL (75-99)
[2017-03-09] MEDS ORDERED: DEXAMETHASONE SOD PHOSPHATE 10 MG/ML 1 ML VIAL IV ONE (14:34)
[2017-03-09] MEDS ORDERED: ONDANSETRON 4 MG/2 ML VIAL IVP ONE (14:34)
[2017-03-09 16:43] LABS: Glucose,Whole Blood 109 mg/dL (75-99)
[2017-03-09] MEDS: LACTATED RINGERS 1,000 ML IV SCH (17:54)
[2017-03-09 20:52] LABS: Glucose,Whole Blood 152 mg/dL (75-99)
--- NOTE | 2017-03-09 23:04 | P.PN ---
Subjective Principal diagnosis: Acute left tension pneumothorax Patient is a 67-year-old male with a known history of chronic atrial fibrillation not on any anticoagulation, seizure disorder, history of CVA/TIA, history of colon cancer status post resection and history of HI and GERD and left lung nodule who underwent CT-guided biopsy at [facility]. Patient subsequently developed tension pneumothorax and pigtail catheter and was transferred to [facility] for further evaluation by CTsurgery for the treatment of lung nodule. Patient was laced with left-sided chest tube currently. Patient is also on antibiotics for pneumonia treatment. Pulmonary and CT surgery is following this patient. Currently patient denied any worsening chest pain or short of breath. Pain is fairly controlled with pain medications. No fever no chills. Chest x-ray showed resolution of pneumothorax. Interstitial infiltrates in the left lower lobe as well as pulmonary fibrosis. On 03/04/2017 Patient remained on chest tube. Pain is controlled. No chest chest pain or worsening short of breath. No nausea vomiting or abdominal pain. Patient is tolerating diet. Elevating pathology report. No fever no chills. 03/05/2017 Patient denied any worsening pain or short of breath. No fever no chills no acute overnight issues. No nausea vomiting or abdominal pain. 03/06/2017 Patient continues to be on chest tube. Lung biopsy obtained from [facility] in conclusion. Pleural fluid cytopathology was sent. Patient continues to be in atrial fibrillation Chest x-ray showed no significant interval change. awaiting final plan from CT surgery. 03/07/2017 Patient was complaining of short of breath and not feeling well today afternoon. No compressive chest pain. CT surgery is planning to remove chest tube today. Chest x-ray showed a showed COPD and chronic interstitial pulmonary fibrosis. No fever no chills.. 03/08/2017 Patient says that his breathing status slightly improved. Chest tube was removed. No fever no chills. No worsening chest pain. No acute overnight issues. Tolerating diet. Objective - Vital Signs Vital signs: Vital Signs Temp 97.5 F L 03/08/17 15:56 Pulse 80 03/08/17 21:10 Resp 16 03/08/17 16:00 BP 112/68 03/08/17 15:56 Pulse Ox 95 03/08/17 15:56 Intake & Output 03/08/17 03/08/1717 06:59 18:59 06:59 Intake Total 473 Output Total 250 950 Balance -250 -477 Weight 73.1 kg Intake: Oral 473 Output: Urine 250 950 Other: Voiding Method Toilet Toilet # Voids 2 # Bowel Movements 1 - Exam Patient is lying in the bed comfortably, no acute distress, awake alert and oriented.. HEENT: Normocephalic. Neck is supple. Pupils reactive. Nostrils clear. Oral cavity is moist. Ears reveal no drainage. Neck reveals no JVD, carotid bruits, or thyromegaly. CHEST EXAMINATION: Trachea is central. Symmetrical expansion. Left-sided basilar crackles and decreased breath sounds. CARDIAC: Normal S1, S2 with no gallops. No murmurs ABDOMEN: Soft. Bowel sounds normal. No organomegaly. No abdominal bruits. Extremities reveal no edema. No clubbing or cyanosis Neurologically awake, alert, oriented x3 with well-coordinated movements. Skin: no rash or skin lesions Musculoskeletal: no joint swelling or deformity. - Labs CBC & Chem 7: 03/07/17 05:55 03/08/17 05:37 Labs: Abnormal Lab Results - Last 24 Hours (Table) 03/08/17 03/08/17 03/08/17 Range/Units 05:37 11:32 20:53 Sodium 134 L (137-145) mmol/L BUN 22 H (9-20) mg/dL POC Glucose (mg/dL) 151 H 107 H (75-99) mg/dL Total Protein 5.8 L (6.3-8.2) g/dL Albumin 2.9 L (3.5-5.0) g/dL Assessment and Plan Plan: Left upper lobe lung nodule status post CT-guided biopsy Left-sided pneumothorax followed by biopsy. Iatrogenic Bilateral pneumonia Macrocytic anemia Hypovolemic hyponatremia Severe COPD with acute exacerbation Chronic hypoxic respiratory failure History of colon cancer status post resection History of HI Family history of colon cancer GERD Chronic atrial fibrillation. Currently on anticoagulation with Lovenox subcu Noncompliance with follow-up and medications History of CVA with dysarthria and left upper extremity weakness. DVT prophylaxis Plan: Patient will be continued on chest tube with suction. Continue with breathing treatments as needed. Continue with antibiotics in the form of ceftriaxone and azithromycin. Continue with prednisone 40 mg daily. Continue anticoagulation. CT surgery and pulmonary is following this patient. Chest x-ray showed improvement in pneumothorax. Continue with the pain management and follow closely. Lung biopsy report inconclusive. Pleural fluid cytopathology showed no malignant cells. Final plan from CT surgery. Pulmonary is on board. Further recommendations based on the clinical course. Prognosis is guarded.
--- NOTE | 2017-03-09 23:05 | P.PN ---
Subjective Principal diagnosis: Acute left tension pneumothorax Patient is a 67-year-old male with a known history of chronic atrial fibrillation not on any anticoagulation, seizure disorder, history of CVA/TIA, history of colon cancer status post resection and history of SD and GERD and left lung nodule who underwent CT-guided biopsy at [facility]. Patient subsequently developed tension pneumothorax and pigtail catheter and was transferred to [facility] for further evaluation by CTsurgery for the treatment of lung nodule. Patient was laced with left-sided chest tube currently. Patient is also on antibiotics for pneumonia treatment. Pulmonary and CT surgery is following this patient. Currently patient denied any worsening chest pain or short of breath. Pain is fairly controlled with pain medications. No fever no chills. Chest x-ray showed resolution of pneumothorax. Interstitial infiltrates in the left lower lobe as well as pulmonary fibrosis. On 03/04/2017 Patient remained on chest tube. Pain is controlled. No chest chest pain or worsening short of breath. No nausea vomiting or abdominal pain. Patient is tolerating diet. Elevating pathology report. No fever no chills. 03/05/2017 Patient denied any worsening pain or short of breath. No fever no chills no acute overnight issues. No nausea vomiting or abdominal pain. 03/06/2017 Patient continues to be on chest tube. Lung biopsy obtained from [facility] in conclusion. Pleural fluid cytopathology was sent. Patient continues to be in atrial fibrillation Chest x-ray showed no significant interval change. awaiting final plan from CT surgery. 03/07/2017 Patient was complaining of short of breath and not feeling well today afternoon. No compressive chest pain. CT surgery is planning to remove chest tube today. Chest x-ray showed a showed COPD and chronic interstitial pulmonary fibrosis. No fever no chills.. 03/08/2017 Patient says that his breathing status slightly improved. Chest tube was removed. No fever no chills. No worsening chest pain. No acute overnight issues. Tolerating diet. 03/09/2017 Patient's breathing status improved today. No overnight issues. No chest pain no worsening short of breath. No fever no chills. Objective - Vital Signs Vital signs: Vital Signs Temp 98.5 F 03/09/17 20:30 Pulse 116 H 03/09/17 20:30 Resp 18 03/09/17 20:30 BP 127/70 03/09/17 20:30 Pulse Ox 95 03/09/17 20:30 Intake & Output 03/09/17 03/09/17 03/10/17 06:59 18:59 06:59 Intake Total 600 1352 Balance 600 1352 Weight 72.3 kg 72.3 kg Intake: Intake, IV Titration 380 Amount Lactated Ringers 1,000 ml 160 @ 20 mls/hr IV .Q24H RADHA Rx#:[id number] Sodium Chloride 0.9% 1, 20 000 ml @ 20 mls/hr IV . Q24H RADHA Rx#:[id number] cefTRIAXone 1,000 mg In 200 Sodium Chloride 0.9% 50 ml @ 100 mls/hr IVPB Q24HR RADHA Rx#:[id number] Oral 600 972 Other: Voiding Method Toilet Toilet Urinal Urinal - Exam Patient is lying in the bed comfortably, no acute distress, awake alert and oriented.. HEENT: Normocephalic. Neck is supple. Pupils reactive. Nostrils clear. Oral cavity is moist. Ears reveal no drainage. Neck reveals no JVD, carotid bruits, or thyromegaly. CHEST EXAMINATION: Trachea is central. Symmetrical expansion. Left-sided basilar crackles and decreased breath sounds. CARDIAC: Normal S1, S2 with no gallops. No murmurs ABDOMEN: Soft. Bowel sounds normal. No organomegaly. No abdominal bruits. Extremities reveal no edema. No clubbing or cyanosis Neurologically awake, alert, oriented x3 with well-coordinated movements. Skin: no rash or skin lesions Musculoskeletal: no joint swelling or deformity. - Labs CBC & Chem 7: 03/07/17 05:55 03/08/17 05:37 Labs: Abnormal Lab Results - Last 24 Hours (Table) 03/09/17 03/09/17 03/09/17 Range/Units 11:25 16:38 20:50 POC Glucose (mg/dL) 133 H 109 H 152 H (75-99) mg/dL Assessment and Plan Plan: Left upper lobe lung nodule status post CT-guided biopsy. Biopsy report inconclusive. Pleural fluid cytopathology showed no malignant cells. Left-sided pneumothorax followed by biopsy. Iatrogenic Bilateral pneumonia Macrocytic anemia Hypovolemic hyponatremia did improve Severe COPD with acute exacerbation Chronic hypoxic respiratory failure History of colon cancer status post resection History of SD Family history of colon cancer GERD Chronic atrial fibrillation. Currently on anticoagulation with Lovenox subcu Noncompliance with follow-up and medications History of CVA with dysarthria and left upper extremity weakness. DVT prophylaxis Plan: Patient will be continued on chest tube with suction. Continue with breathing treatments as needed. Continue with antibiotics in the form of ceftriaxone and azithromycin. Continue with prednisone 40 mg daily. Continue anticoagulation. CT surgery and pulmonary is following this patient. Chest x-ray showed improvement in pneumothorax. Continue with the pain management and follow closely. Lung biopsy report inconclusive. Pleural fluid cytopathology showed no malignant cells. Final plan from CT surgery. Pulmonary is on board. Further recommendations based on the clinical course. Prognosis is guarded.
[2017-03-10] MEDS: ALPRAZolam 0.25 MG TAB PO PRN ×2 (00:10→23:41)
[2017-03-10 06:04] LABS: Glucose,Whole Blood 103 mg/dL (75-99)
[2017-03-10] MEDS: INSULIN LISPRO (humaLOG) 300 UNIT/3 ML VIAL SQ SCH ×4 (06:07→21:22)
[2017-03-10 06:58] LABS: Anisocytosis Moderate; Basophils % (A) 1 %; CH 35.1; CHCM 30.5; Eosinophils # (A) 0.1 k/uL (0-0.7); Eosinophils % (A) 1 %; HDW 3.78; HGB 10.1 gm/dL (13.0-17.5); Hypochromasia Marked; Luc % (Auto) 4; Lymphocytes # (A) 1.5 k/uL (1.0-4.8); Lymphocytes % (A) 28 %; MCH 35.4 pg (25.0-35.0); MCHC 30.8 g/dL (31.0-37.0); Macrocytosis Marked; Mean Platelet Volume 8.4; Monocytes # (A) 0.4 k/uL (0-1.0); Monocytes % (A) 8 %; Neutrophils # (A) 3.2 k/uL (1.3-7.7); Neutrophils % (A) 59 %; Poikilocytosis Slight; RBC 2.87 m/uL (4.30-5.90); RDW 21.7 % (11.5-15.5); WBC 5.5 k/uL (3.8-10.6); WBC (Perox) 5.59
[2017-03-10 07:10] LABS: ALT 26 U/L (21-72); AST 19 U/L (17-59); Alkaline Phosphatase 44 U/L (38-126); Anion Gap 10 mmol/L; Blood Urea Nitrogen 26 mg/dL (9-20); Carbon Dioxide 20 mmol/L (22-30); Chloride 107 mmol/L (98-107); Glucose 86 mg/dL (74-99); Non-African American GFR(MDRD) >60 (>60 ml/min/1.73 sqM); Potassium 4.6 mmol/L (3.5-5.1); Sodium 137 mmol/L (137-145); Total Bilirubin 0.3 mg/dL (0.2-1.3); Total Protein 6.1 g/dL (6.3-8.2)
[2017-03-10 07:13] LABS: MCV 114.9 fL (80.0-100.0)
[2017-03-10] MEDS: SODIUM CHLORIDE 0.9% 1,000 ML IV SCH (07:31)
[2017-03-10] MEDS: IPRATROPIUM-ALBUTEROL 3 ML NEB INHALATION PRN ×2 (07:31→11:06)
[2017-03-10] MEDS: BUDESONIDE 0.5 MG/2 ML NEBU INHALATION SCH ×2 (07:31→18:26)
[2017-03-10] MEDS: carBAMazepine 400 MG TAB.ER.12H PO SCH ×2 (08:59→21:21)
[2017-03-10] MEDS: AZITHROMYCIN 500 MG TAB PO SCH (08:59)
[2017-03-10] MEDS: DIVALPROEX 500 MG TABLET.DR PO SCH ×2 (09:00→21:21)
[2017-03-10] MEDS: METOPROLOL SUCCINATE (ER) 25 MG TAB.ER.24H PO SCH (09:02)
[2017-03-10] MEDS: predniSONE 20 MG TAB PO SCH (09:02)
[2017-03-10] MEDS: ENOXAPARIN 40 MG/0.4 ML SYRINGE SQ SCH ×2 (09:05→21:53)
[2017-03-10] MEDS: FAMOTIDINE 20 MG TAB PO SCH ×2 (09:05→21:21)
--- NOTE | 2017-03-10 10:44 | P.PN ---
Subjective 03/10/17- seen and examined and evaluated today on the sixth floor. Upon examination the patient is resting up in bed on room air with supplemental oxygen laying next to him. He states that he uses 2 L of supplemental oxygen off and on for comfort throughout the day when he gets winded. Patient states he does get short of breath and winded with activity and exertion. Oxygen saturations have been maintained in the mid to high 90s. Patient has been nothing by mouth since midnight for VATS procedure to be done today by cardiothoracic surgery. All labs and reports have been reviewed. 03/09/17- patient is being seen examined and evaluated today on the sixth floor. Upon examination the patient is resting up in bed on 2 L of supplemental oxygen via nasal cannula, oxygen saturations in the high 90s. Chest tube site remains clean dry and intact. Patient is being scheduled to undergo VATS procedure tomorrow with cardiothoracic surgery. He is afebrile, no overnight events. 03/08/17 patient is being seen examined and evaluated today on the sixth floor. His chest tube was removed yesterday. Dressing is clean dry and intact. Chest x-ray was reviewed from this morning does show that the left-sided chest tube has been removed without evidence for recurrent pneumothorax. Small amount of subcutaneous emphysema seen along the left chest wall. Improving left basilar infiltrate and/or atelectasis. Stable chronic density in the right upper lobe. Upon examination patient sitting up in bed on room air. He has been using supplemental oxygen on and off per the nursing staff for comfort. His oxygen saturations have remained in the mid 90s. He is afebrile, no overnight events. Patient is scheduled to go for a left video-assisted thoracoscopic wedge biopsy on Monday. 03/07/2017, patient seen and evaluated exam and on 6 floor he is breathing comfortably less short of breath his cuff congestion has improved he is not coughing purulent sputum anymore hemoptysis has resolved his chest tube has been placed on water seal a chest x-ray performed right in front of me which I have reviewed it no pneumothorax is seen on water seal. Patient is afebrile with the FiO2 is down to 2 L now and sats are 98% hemodynamic status stable except atrial fibrillation with controlled ventricular response on telemetry, the biopsy results are nondiagnostic awaiting further recommendation from cardiothoracic surgery in the meantime we'll taper down the steroids further and hopefully discontinue and next 24 hours 03/06/2017, patient seen and evaluated examined care plan discussed with the nursing staff at length biopsy results are obtained [facility] it's a nondiagnostic tissue. Patient is breathing definitely better he still have left-sided chest tube no a leak is present subcu continue him emphysema which was seen previously is almost resolved no evidence of active hemoptysis seen patient remains in atrial fibrillation with controlled ventricular response she is on subcu Lovenox is also on broad-spectrum antibiotics and oral prednisone and seems to be tolerating very well, we'll start tapering down the steroids lowered down to 30 mg daily continue other antibiotics, awaiting further recommendation from thoracic surgery patient may very well and been getting the VATS procedure with wedge resection of left upper lobe nodule and and mediastinoscopy 03/05/17, patient seen and evaluated examined today some level of pain is present on the left thoracic wall subcu emphysema which was noted previously has improved significantly patient does have intermittent cough and chest tightness proceeded he has improved though his been getting [place] and as needed Dilaudid for adequate pain control. His chest x-ray done today failed to reveal significant pneumothorax a questionable left apical pneumothorax cannot be excluded along with some interstitial edema and basal atelectasis likely related to poor respiratory effort is still waiting for the biopsy results from [facility] with further recommendations pending cardiothoracic surgery is following as well, no more evidence of any hemoptysis is been seen heart rate is better under control but however rhythm remains atrial fibrillation with controlled ventricular response 03/04/2017, patient seen and evaluated examined in ICU he is awake and alert breathing relatively comfortably would get anxious and agitated events from yesterday and last night has been noted, patient to have left left tension pneumothorax as the prior pigtail rest tube was plugged requiring emergent placement off a new 28-Thai chest tube by me in a stable position. Able to evacuate the tension pneumothorax no more bubbling was seen however patient was trying to get up late last night and to use the urinal disconnected himself over the chest tube developed shortness of breath later on the tube has been reconnected by nurse staff had no more air leak is seen in the pleural VAC. Patient has episodes of intermittent anxiety we will start him on low-dose Xanax patient had low magnesium which is being repleted he is on diet tolerated well patient has been evaluated by Dr. Persaud from thoracic surgery awaiting biopsy results with further interventions pending. His chest x-ray from earlier this morning reviewed no pneumothorax is seen chest tube was stable the right perihilar pneumonia and left lower lobe pneumonia not much change overall stable on antibiotics His labs from today's reviewed borderline hyponatremia noted he is anemic with hemoglobin of 9.6 we'll monitor observe closely Critical care time spent 35 minutes Mr. Rendon is a 67-year-old male with history of severe COPD emphysema and chronic persistent asthma patient also has history of chronic atrial fibrillation and has been attempted on anticoagulants but couldn't tolerate it because of the GI bleeding has been off of blood thinners patient is somewhat unreliable in terms of follow-up he does have a history of prior pneumonia and right-sided nodule however that did resolve though. Patient was sent from the primary care provider to my office with ongoing hemoptysis and also found to have abnormal chest x-ray and CAT scan in fact patient had a PET scan as well which revealed positive uptake in the left upper lobe nodule which was new. Patient also found to have a left upper lobe and right lower lobe infiltrate suggestive of pneumonia given the severe respiratory status patient was considered not to be a candidate for bronchoscopy and biopsies options were discussed with him to optimize therapy and decision was done to admit the patient into the hospital to treat the pneumonia and consideration of biopsy and along the same time. Patient did respond well with the antibiotics with improvement in respiratory status and hemoptysis however interventional radiology was consulted for CT-guided biopsy of left upper lobe nodule they initially attempted a small lymph node on the neck in cervical area which was nondiagnostic followed by CT-guided biopsy of left upper lobe nodule. Patient did have left the pneumothorax which was progressive and eventually giving appearance of a tension pneumothorax requiring emergent placement of a small bore chest tube by interventional radiology the pneumothorax resolved only a small residual 5% pneumothorax was seen subsequent x-ray performed in the afternoon. At that time decision was done to monitor observe and patent patient to be transferred to [facility] for further evaluation and intervention and treatment and possible resection of left upper lobe nodule Objective - Vital Signs Vital signs: Vital Signs Temp 96.2 F L 03/10/17 08:00 Pulse 80 03/10/17 08:00 Resp 18 03/10/17 08:00 BP 138/71 03/10/17 08:00 Pulse Ox 91 L 03/10/17 08:00 Intake & Output 03/09/17 03/10/17 03/10/17 18:59 06:59 18:59 Intake Total 1352 720 Output Total 325 Balance 1352 395 Weight 72.3 kg 72.3 kg Intake: Intake, IV Titration 380 120 Amount Lactated Ringers 1,000 ml 160 120 @ 20 mls/hr IV .Q24H RADHA Rx#:[id number] Sodium Chloride 0.9% 1, 20 000 ml @ 20 mls/hr IV . Q24H RADHA Rx#:[id number] cefTRIAXone 1,000 mg In 200 Sodium Chloride 0.9% 50 ml @ 100 mls/hr IVPB Q24HR RADHA Rx#:[id number] Oral 972 600 Output: Urine 325 Other: Voiding Method Toilet Urinal # Voids 2 - Exam - Exam - Constitutional General appearance: cooperative, disheveled, mild distress - EENT Eyes: EOMI, PERRLA, normal appearance Ears: bilateral: normal - Neck Neck: normal ROM Carotids: bilateral: upstroke normal, bruit absent Thyroid: negative: normal size - Respiratory Respiratory: bilateral: diminished, rhonchi, wheezing, prolonged expiration, no significant subcu emphysema is seen, chest tube has been removed. Dressing to chest tube site clean dry and intact. - Cardiovascular Rhythm: irregularly irregular Heart sounds: normal: S1, S2 - Gastrointestinal General gastrointestinal: decreased bowel sounds, normal bowel sounds, soft - Integumentary Integumentary: normal, normal turgor - Neurologic Neurologic: CNII-XII intact - Musculoskeletal Musculoskeletal: gait normal, generalized weakness, strength equal bilaterally - Psychiatric Psychiatric: A&O x's 3, appropriate affect, intact judgment & insight - Labs CBC & Chem 7: 03/10/17 06:07 03/10/17 06:07 Labs: Abnormal Lab Results - Last 24 Hours (Table) 03/09/17 03/09/17 03/09/17 Range/Units 11:25 16:38 20:50 RBC (4.30-5.90) m/uL Hgb (13.0-17.5) gm/dL Hct (39.0-53.0) % MCV (80.0-100.0) fL MCH (25.0-35.0) pg MCHC (31.0-37.0) g/dL RDW (11.5-15.5) % Carbon Dioxide (22-30) mmol/L BUN (9-20) mg/dL POC Glucose (mg/dL) 133 H 109 H 152 H (75-99) mg/dL Total Protein (6.3-8.2) g/dL Albumin (3.5-5.0) g/dL 03/10/17 03/10/17 03/10/17 Range/Units 05:55 06:07 06:07 RBC 2.87 L (4.30-5.90) m/uL Hgb 10.1 L (13.0-17.5) gm/dL Hct 33.0 L (39.0-53.0) % MCV 114.9 H D (80.0-100.0) fL MCH 35.4 H (25.0-35.0) pg MCHC 30.8 L (31.0-37.0) g/dL RDW 21.7 H (11.5-15.5) % Carbon Dioxide 20 L (22-30) mmol/L BUN 26 H (9-20) mg/dL POC Glucose (mg/dL) 103 H (75-99) mg/dL Total Protein 6.1 L (6.3-8.2) g/dL Albumin 3.1 L (3.5-5.0) g/dL Assessment and Plan Plan: Assessment Bilateral pneumonia with hemoptysis Left upper lobe nodule Left-sided iatrogenic tension pneumothorax status post new 28-Thai left-sided chest tube and removal of old pigtail catheter Severe COPD with chronic hypoxic respiratory failure Chronic atrial fibrillation Plan Plan is to monitor observe patient in selective care, thoracic surgery consultation has been obtained patient's is to be evaluated for VATS procedure for left upper lobe nodule resection and possible VATS resection and mediastinoscopy. We will maintain patient on Xanax maintain patient on peptic ulcer disease prophylaxis continue Lovenox for chronic atrial fibrillation for now. we'll do a bedside spirometry patient is being maintained on subcu Lovenox will continue the antibiotics breathing treatment, steroids have been switched to oral. patient will be kept on peptic ulcer disease prophylaxis and supportive care care plan discussed with the nursing staff at length. Increase activity as tolerated. Continue pulmonary hygiene and supportive care. Supplemental oxygen to maintain oxygen saturations greater than 92%. Further recommendations pending. I performed an examination of the patient and discussed their management with the nurse practitioner. I have reviewed the nurse practitioner's note and agree with the documented findings and plan of care.
[2017-03-10] MEDS ORDERED: IV FLUID CONTINUATION 1,000 ML IV ONE (13:05)
[2017-03-10] MEDS ORDERED: fentaNYL (PF) 50 MCG/ML 2 ML AMP ONE (13:49)
[2017-03-10] MEDS ORDERED: MIDAZOLAM 2 MG/2 ML VIAL ONE (13:49)
[2017-03-10] MEDS ORDERED: ROCURONIUM BROMIDE 10 MG/ML 10 ML VIAL IV ONE (13:49)
[2017-03-10] MEDS ORDERED: ePHEDrine SULFATE/0.9% NACL/PF 50 MG/5 ML SYRINGE IV ONE (13:49)
[2017-03-10] MEDS ORDERED: SUCCINYLCHOLINE CHLORIDE 100 MG/5 ML SYR IV ONE (13:49)
[2017-03-10] MEDS ORDERED: GLYCOPYRROLATE 0.2 MG/ML 2 ML VIAL ONE (13:49)
[2017-03-10] MEDS ORDERED: LIDOCAINE 1% INJ 10MG/ML (20 ML MDV) ONE (13:49)
[2017-03-10] MEDS ORDERED: PROPOFOL 10 MG/ML 20 ML VIAL IV ONE (13:49)
[2017-03-10] MEDS ORDERED: NEOSTIGMINE 1 MG/ML 10 ML VIAL ONE (13:49)
[2017-03-10] MEDS ORDERED: HYDROmorphone (PF) 1 MG/ML ONE (13:49)
[2017-03-10] MEDS ORDERED: SODIUM CHLORIDE 0.9% 50 ML with ceFAZolin 1,000 MG IV ONE ×2 (14:24)
[2017-03-10] MEDS ORDERED: BUPIVACAINE (PF) 0.5% 30 ML VIAL SQ ONE ×2 (14:28)
[2017-03-10] MEDS ORDERED: LACTATED RINGERS 1,000 ML IV ONE (15:01)
[2017-03-10] MEDS ORDERED: ONDANSETRON 4 MG/2 ML VIAL IVP PRN (15:02)
--- NOTE | 2017-03-10 15:13 | P.OP ---
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 Needle biopsy was nondiagnostic but did cause pneumothorax. This was treated with chest tube. Following chest tube removal, wedge resection was indicated for diagnosis and treatment. Operative Findings: 2 cm firm nodule left upper lobe of the lung with overlying pleural retraction. This was wedged out with grossly negative margins. Description of Procedure: The patient was brought to the operating room, placed supine on the operating table, anesthetized and intubated with a double-lumen endotracheal tube. Tube was positioned with fiberoptic bronchoscopy and secured. The patient was turned in the right lateral decubitus. The left chest was sterilely prepped and draped. 3 one-inch incisions were made in the left chest and single lung ventilation was initiated. The incisions were carried down through skin and subcutaneous tissue into the pleural space. The nodule in the left upper lobe was identified. Multiple firings of the Endo YASMIN medium thick stapler with yevgeniy -strip reinforcement were used to wedge out the tumor. On completion of the wedge resection specimen was placed in an Endo Catch bag and brought out onto the table. Examination revealed good gross margin and findings as noted above. There was some bleeding from the most prudent posterior port site. This was controlled with electrocautery. Blood was suctioned from the chest cavity. 28- [place] chest tube was placed through separate stab incision and positioned posterior apically. It was secured with an 0 Ethibond suture. The lung was reinflated under direct vision. The staple lines appeared to be intact. They were reinforced with some pro-gel. The scope was removed and the chest tube was connected to suction. The incisions were closed with layers of Vicryl suture. Rib blocks were performed at the level of the incision with half percent Marcaine. Skin glue and Band-Aid dressings were applied. The patient was extubated and transferred to recovery in stable condition.
[2017-03-10] MEDS: HYDROmorphone 1 MG/ML 1 ML SYRINGE IVP PRN ×5 (15:30→21:21)
--- NOTE | 2017-03-10 15:52 | XR ---
EXAMINATION TYPE: XR chest 1V DATE OF EXAM: 03/10/2017 COMPARISON: NONE HISTORY: post op VATS TECHNIQUE: Single frontal view of the chest is obtained. FINDINGS: Changes of chronic interstitial lung disease seen with a left-sided chest tube. There is b ilateral areas of airspace disease now noted with small left pleural effusion and left-sided subsegme ntal consolidation. Spiculated density in the left upper lobe not as well seen. IMPRESSION: 1. No sizable pneumothorax with chest tube in position. 2. COPD with chronic interstitial lung disease and small bilateral pleural effusions with bilateral u pper lobe areas of increased density may represent areas of new consolidation. Spiculated mass seen o n the previous exam within the left upper lobe somewhat obscured on today's exam.
[2017-03-10] MEDS: IPRATROPIUM-ALBUTEROL 3 ML NEB IH SCH ×2 (15:58→18:26)
[2017-03-10] MEDS: DEXTROSE 5%-0.45% NACL 1,000 ML IV SCH (16:44)
[2017-03-10 16:52] LABS: Glucose,Whole Blood 114 mg/dL (75-99)
[2017-03-10] MEDS: HYDROcodone/APAP 5-325MG 1 EACH TAB PO PRN ×2 (18:43→23:41)
[2017-03-10 21:00] LABS: Glucose,Whole Blood 112 mg/dL (75-99)
[2017-03-11] MEDS: SODIUM CHLORIDE 0.9% 1,000 ML IV SCH ×2 (02:44→23:59)
[2017-03-11] MEDS: HYDROmorphone 1 MG/ML 1 ML SYRINGE IVP PRN ×5 (02:53→21:16)
[2017-03-11] MEDS: HYDROcodone/APAP 5-325MG 1 EACH TAB PO PRN ×2 (03:49→07:36)
[2017-03-11 05:58] LABS: Glucose,Whole Blood 78 mg/dL (75-99)
[2017-03-11] MEDS: INSULIN LISPRO (humaLOG) 300 UNIT/3 ML VIAL SQ SCH ×4 (06:22→21:16)
[2017-03-11] MEDS: IPRATROPIUM-ALBUTEROL 3 ML NEB IH SCH ×4 (07:44→20:24)
[2017-03-11] MEDS: BUDESONIDE 0.5 MG/2 ML NEBU INHALATION SCH ×2 (07:44→20:24)
[2017-03-11] MEDS: LACTATED RINGERS 1,000 ML IV SCH ×2 (07:54→15:16)
[2017-03-11] MEDS: ENOXAPARIN 40 MG/0.4 ML SYRINGE SQ SCH ×2 (08:02→21:16)
[2017-03-11] MEDS: DIVALPROEX 500 MG TABLET.DR PO SCH ×2 (08:02→21:16)
[2017-03-11] MEDS: AZITHROMYCIN 500 MG TAB PO SCH (08:02)
[2017-03-11] MEDS: predniSONE 20 MG TAB PO SCH (08:02)
[2017-03-11] MEDS: FAMOTIDINE 20 MG TAB PO SCH ×2 (08:02→21:16)
[2017-03-11] MEDS: METOPROLOL SUCCINATE (ER) 25 MG TAB.ER.24H PO SCH (08:02)
[2017-03-11] MEDS: carBAMazepine 400 MG TAB.ER.12H PO SCH ×2 (08:03→21:16)
--- NOTE | 2017-03-11 08:05 | XR ---
EXAMINATION TYPE: XR chest 1V portable DATE OF EXAM: 03/11/2017 HISTORY: post chest tube insertion. REFERENCE: Previous study dated 03/10/2017. FINDINGS: A left pleural drain remains in place. No significant pneumothorax is seen. Heart size is upper limits of normal. There is vascular congestion. There is both interstitial and al veolar airspace disease. I cannot exclude some degree of heart failure. I suspect a small left effusi on. The overall aeration of the lungs has improved. IMPRESSION: IMPROVED AERATION OF BOTH LUNGS.
[2017-03-11] MEDS: KETOROLAC 30 MG/ML 1 ML VIAL IVP SCH ×4 (08:22→23:52)
--- NOTE | 2017-03-11 09:24 | P.PN ---
Subjective Principal diagnosis: Chronic atrial fibrillation, seizure disorder, history of colon cancer, history of myocardial infarction, history of stroke, history of GI bleed, history of home oxygen therapy, tobacco dependence in remission, family history of lung cancer, chronic obstructive pulmonary disease. Status post post CT-guided lung biopsy performed by Dr. Nazario. Subsequently developed left-sided pneumothorax with placement of pigtail drain. Had continued pneumothorax with removal of pigtail drain and placement of left- sided chest tube. POD #1 wedge resection of the tumor left upper lobe lung. Patient sitting up in bed in mild to moderate distress. States his pain is not controlled and he is having a hard time coughing anything up. Objective - Vital Signs Vital signs: Vital Signs Temp 99.2 F 03/11/17 07:44 Pulse 104 H 03/11/17 07:57 Resp 22 03/11/17 07:51 BP 105/64 03/11/17 07:44 Pulse Ox 91 L 03/11/17 07:46 Intake & Output 03/10/17 03/11/17 03/11/17 18:59 06:59 18:59 Intake Total 1050 Output Total 400 740 Balance 650 -740 Weight 72 kg Intake: IV 900 Intake, IV Titration 150 Amount Lactated Ringers 1,000 ml 100 @ 20 mls/hr IV .Q24H RADHA Rx#:[id number] cefTRIAXone 1,000 mg In 50 Sodium Chloride 0.9% 50 ml @ 100 mls/hr IVPB Q24HR RADHA Rx#:[id number] Output: Chest Tube Drainage 120 left chest 120 Drainage 220 Left Chest 220 Urine 300 400 Estimated Blood Loss 100 Other: Voiding Method Indwelling Catheter Indwelling Catheter - Constitutional General appearance: Present: cooperative, mild distress - Respiratory Details: Lungs sounds diminished bilaterally, coarse in the bases. Respirations even, slightly taccypneic. Currently on 4 L nasal cannula with oxygen saturation 91- 95%. Able to achieve 1000 mL on his incentive spirometry. Left pleural chest tube to -20 cm wall suction, 140 mL serosanguineous drainage overnight, 370 mL since surgery. Positive subcu emphysema left lateral chest extending to his back. - Cardiovascular Details: S1, S2 present. Irregular, tachycardia rate and rhythm, atrial fibrillation on telemetry. Palpable pulses bilaterally. No edema present. - Gastrointestinal Gastrointestinal Comment(s): Abdomen soft, nontender, nondistended. Active bowel sounds 4 quadrants. Tolerating diet. - Genitourinary Genitourinary Comment(s): Aparicio present draining clear, yellow urine. - Musculoskeletal Musculoskeletal: Present: strength equal bilaterally - Psychiatric Psychiatric: Present: A&O x's 3, appropriate affect, intact judgment & insight - Allied health notes Allied health notes reviewed: nursing - Labs CBC & Chem 7: 03/10/17 06:07 03/10/17 06:07 Labs: Abnormal Lab Results - Last 24 Hours (Table) 03/10/17 03/10/17 Range/Units 16:40 20:58 POC Glucose (mg/dL) 114 H 112 H (75-99) mg/dL - Imaging and Cardiology Chest x-ray: report reviewed, image reviewed Assessment and Plan (1) Chronic atrial fibrillation Status: Acute (2) Seizure disorder Status: Acute (3) History of colon cancer Status: Acute (4) History of myocardial infarction Status: Acute (5) History of stroke Status: Acute (6) History of GI bleed Status: Acute (7) History of home oxygen therapy Status: Acute (8) Tobacco dependence in remission Status: Acute (9) Family history of lung cancer Status: Acute (10) COPD (chronic obstructive pulmonary disease) Status: Acute Plan: 1. Wedge biopsy done yesterday, await pathology results. Will monitor chest tube output, keep to wall suction. 2. Wean O2 as tolerated. Encourage incentive spirometry use. 3. Pain medication increased. 4. Discontinue Aparicio catheter. 5. Medical comorbidities to be managed by primary care service. 6. Antibiotics, steroids, bronchodilators per pulmonary service. 7. GI for/DVT prophylaxis. 8. Increase activity, ambulate in room. 9. Further recommendations as patient progresses. Time with Patient: Greater than 30
--- NOTE | 2017-03-11 09:25 | P.PN ---
Subjective Principal diagnosis: Tension pneumothorax, left upper lobe mass, bilateral pneumonia, chronic hypoxic respiratory failure, severe COPD andemphysema, hemoptysis 03/11/2017, patient seen and evaluated examined in the [facility] care patient has successfully underwent wedge resection of the left upper lobe firm nodule which is about 2 cm in size operative reports and the primary data has been reviewed and grossly negative margins were noted the nodules been sent for histopathology final results are pending. Patient is complaining of pleuritic chest pain in the left side which is stable no pain medicine seems to be effective there is a pleural VAC is present on the right side and no air leak is present about 350 mL of dark pleural fluid has been accumulated. Patient remains on [place] antibiotics does feel some congestion and cough however no significant sputum production is seen he has baseline shortness of breath which is overall stable patient has been consult at length about importance to using IES continued to do deep breathing exercise continue pain medicine maintain patient on DVT and peptic ulcer disease prophylaxis 03/10/17- seen and examined and evaluated today on the sixth floor. Upon examination the patient is resting up in bed on room air with supplemental oxygen laying next to him. He states that he uses 2 L of supplemental oxygen off and on for comfort throughout the day when he gets winded. Patient states he does get short of breath and winded with activity and exertion. Oxygen saturations have been maintained in the mid to high 90s. Patient has been nothing by mouth since midnight for VATS procedure to be done today by cardiothoracic surgery. All labs and reports have been reviewed. 03/09/17- patient is being seen examined and evaluated today on the sixth floor. Upon examination the patient is resting up in bed on 2 L of supplemental oxygen via nasal cannula, oxygen saturations in the high 90s. Chest tube site remains clean dry and intact. Patient is being scheduled to undergo VATS procedure tomorrow with cardiothoracic surgery. He is afebrile, no overnight events. 03/08/17 patient is being seen examined and evaluated today on the sixth floor. His chest tube was removed yesterday. Dressing is clean dry and intact. Chest x-ray was reviewed from this morning does show that the left-sided chest tube has been removed without evidence for recurrent pneumothorax. Small amount of subcutaneous emphysema seen along the left chest wall. Improving left basilar infiltrate and/or atelectasis. Stable chronic density in the right upper lobe. Upon examination patient sitting up in bed on room air. He has been using supplemental oxygen on and off per the nursing staff for comfort. His oxygen saturations have remained in the mid 90s. He is afebrile, no overnight events. Patient is scheduled to go for a left video-assisted thoracoscopic wedge biopsy on Monday. 03/07/2017, patient seen and evaluated exam and on 6 floor he is breathing comfortably less short of breath his cuff congestion has improved he is not coughing purulent sputum anymore hemoptysis has resolved his chest tube has been placed on water seal a chest x-ray performed right in front of me which I have reviewed it no pneumothorax is seen on water seal. Patient is afebrile with the FiO2 is down to 2 L now and sats are 98% hemodynamic status stable except atrial fibrillation with controlled ventricular response on telemetry, the biopsy results are nondiagnostic awaiting further recommendation from cardiothoracic surgery in the meantime we'll taper down the steroids further and hopefully discontinue and next 24 hours 03/06/2017, patient seen and evaluated examined care plan discussed with the nursing staff at length biopsy results are obtained from the patient on [facility] it's a nondiagnostic tissue. Patient is breathing definitely better he still have left-sided chest tube no a leak is present subcu continue him emphysema which was seen previously is almost resolved no evidence of active hemoptysis seen patient remains in atrial fibrillation with controlled ventricular response she is on subcu Lovenox is also on broad-spectrum antibiotics and oral prednisone and seems to be tolerating very well, we'll start tapering down the steroids lowered down to 30 mg daily continue other antibiotics, awaiting further recommendation from thoracic surgery patient may very well and been getting the VATS procedure with wedge resection of left upper lobe nodule and and mediastinoscopy 03/05/17, patient seen and evaluated examined today some level of pain is present on the left thoracic wall subcu emphysema which was noted previously has improved significantly patient does have intermittent cough and chest tightness proceeded he has improved though his been getting [place] and as needed Dilaudid for adequate pain control. His chest x-ray done today failed to reveal significant pneumothorax a questionable left apical pneumothorax cannot be excluded along with some interstitial edema and basal atelectasis likely related to poor respiratory effort is still waiting for the biopsy results from [facility] with further recommendations pending cardiothoracic surgery is following as well, no more evidence of any hemoptysis is been seen heart rate is better under control but however rhythm remains atrial fibrillation with controlled ventricular response 03/04/2017, patient seen and evaluated examined in ICU he is awake and alert breathing relatively comfortably would get anxious and agitated events from yesterday and last night has been noted, patient to have left left tension pneumothorax as the prior pigtail rest tube was plugged requiring emergent placement off a new 28-Irish chest tube by me in a stable position. Able to evacuate the tension pneumothorax no more bubbling was seen however patient was trying to get up late last night and to use the urinal disconnected himself over the chest tube developed shortness of breath later on the tube has been reconnected by nurse staff had no more air leak is seen in the pleural VAC. Patient has episodes of intermittent anxiety we will start him on low-dose Xanax patient had low magnesium which is being repleted he is on diet tolerated well patient has been evaluated by Dr. Persaud from thoracic surgery awaiting biopsy results with further interventions pending. His chest x-ray from earlier this morning reviewed no pneumothorax is seen chest tube was stable the right perihilar pneumonia and left lower lobe pneumonia not much change overall stable on antibiotics His labs from today's reviewed borderline hyponatremia noted he is anemic with hemoglobin of 9.6 we'll monitor observe closely Critical care time spent 35 minutes Mr. Rendon is a 67-year-old male with history of severe COPD emphysema and chronic persistent asthma patient also has history of chronic atrial fibrillation and has been attempted on anticoagulants but couldn't tolerate it because of the GI bleeding has been off of blood thinners patient is somewhat unreliable in terms of follow-up he does have a history of prior pneumonia and right-sided nodule however that did resolve though. Patient was sent from the primary care provider to my office with ongoing hemoptysis and also found to have abnormal chest x-ray and CAT scan in fact patient had a PET scan as well which revealed positive uptake in the left upper lobe nodule which was new. Patient also found to have a left upper lobe and right lower lobe infiltrate suggestive of pneumonia given the severe respiratory status patient was considered not to be a candidate for bronchoscopy and biopsies options were discussed with him to optimize therapy and decision was done to admit the patient into the hospital to treat the pneumonia and consideration of biopsy and along the same time. Patient did respond well with the antibiotics with improvement in respiratory status and hemoptysis however interventional radiology was consulted for CT-guided biopsy of left upper lobe nodule they initially attempted a small lymph node on the neck in cervical area which was nondiagnostic followed by CT-guided biopsy of left upper lobe nodule. Patient did have left the pneumothorax which was progressive and eventually giving appearance of a tension pneumothorax requiring emergent placement of a small bore chest tube by interventional radiology the pneumothorax resolved only a small residual 5% pneumothorax was seen subsequent x-ray performed in the afternoon. At that time decision was done to monitor observe and patent patient to be transferred to [facility] for further evaluation and intervention and treatment and possible resection of left upper lobe nodule Objective - Vital Signs Vital signs: Vital Signs Temp 99.2 F 03/11/17 07:44 Pulse 104 H 03/11/17 07:57 Resp 22 03/11/17 07:51 BP 105/64 03/11/17 07:44 Pulse Ox 91 L 03/11/17 07:46 Intake & Output 03/10/17 03/11/17 03/11/17 18:59 06:59 18:59 Intake Total 1050 Output Total 400 740 Balance 650 -740 Weight 72 kg Intake: IV 900 Intake, IV Titration 150 Amount Lactated Ringers 1,000 ml 100 @ 20 mls/hr IV .Q24H RADHA Rx#:[id number] cefTRIAXone 1,000 mg In 50 Sodium Chloride 0.9% 50 ml @ 100 mls/hr IVPB Q24HR RADHA Rx#:[id number] Output: Chest Tube Drainage 120 left chest 120 Drainage 220 Left Chest 220 Urine 300 400 Estimated Blood Loss 100 Other: Voiding Method Indwelling Catheter Indwelling Catheter - Exam - Constitutional General appearance: cooperative, disheveled, mild distress - EENT Eyes: EOMI, PERRLA, normal appearance Ears: bilateral: normal - Neck Neck: normal ROM Carotids: bilateral: upstroke normal, bruit absent Thyroid: negative: normal size - Respiratory Respiratory: bilateral: diminished, rhonchi, wheezing, prolonged expiration, no significant subcu emphysema is seen, no more bubbling noted on chest tube air column moves fairly well with respiration and pleural VAC, patient is currently on water seal chest x-ray reviewed output 300 mL of dark pleural fluid and pleural VAC has been noted - Cardiovascular Rhythm: irregularly irregular Heart sounds: normal: S1, S2 - Gastrointestinal General gastrointestinal: decreased bowel sounds, normal bowel sounds, soft - Integumentary Integumentary: normal, normal turgor - Neurologic Neurologic: CNII-XII intact - Musculoskeletal Musculoskeletal: gait normal, generalized weakness, strength equal bilaterally - Psychiatric Psychiatric: A&O x's 3, appropriate affect, intact judgment & insight - Labs CBC & Chem 7: 03/10/17 06:07 03/10/17 06:07 Labs: Abnormal Lab Results - Last 24 Hours (Table) 03/10/17 03/10/17 Range/Units 16:40 20:58 POC Glucose (mg/dL) 114 H 112 H (75-99) mg/dL Assessment and Plan Plan: Assessment and Plan Plan: Assessment Bilateral pneumonia with hemoptysis Left upper lobe nodule, status post resection postop day #1 Left-sided tension pneumothorax wired 28-Irish left-sided chest tube and removal Severe COPD with chronic hypoxic respiratory failure Chronic atrial fibrillation Plan Plan is to monitor observe patient in selective care, thoracic surgery consultation has been doing, patient's is status post VATS procedure for left upper lobe nodule resection with VATS resection. We will maintain patient on broad-spectrum antibiotics DVT and peptic ulcer disease prophylaxis for anxiety on on Xanax maintain patient on peptic ulcer disease prophylaxis continue Lovenox for chronic atrial fibrillation for now. we'll do a bedside spirometry patient is being maintained on subcu Lovenox will continue the antibiotics breathing treatment, steroids have been switched to oral. patient will be kept on peptic ulcer disease prophylaxis and supportive care care plan discussed with the nursing staff at length. Increase activity as tolerated. Continue pulmonary hygiene and supportive care. Supplemental oxygen to maintain oxygen saturations greater than 92%. Further recommendations pending. Time with Patient: Greater than 30
[2017-03-11 11:56] LABS: Glucose,Whole Blood 110 mg/dL (75-99)
[2017-03-11] MEDS: DEXTROSE 5%-0.45% NACL 1,000 ML IV SCH (15:19)
[2017-03-11 16:28] LABS: Glucose,Whole Blood 111 mg/dL (75-99)
[2017-03-11] MEDS: HYDROcodone/APAP 7.5-325MG 1 EACH TAB PO PRN (17:25)
[2017-03-11 20:58] LABS: Glucose,Whole Blood 111 mg/dL (75-99)
[2017-03-11] MEDS: ALPRAZolam 0.25 MG TAB PO PRN (23:58)
[2017-03-12] MEDS: HYDROmorphone 1 MG/ML 1 ML SYRINGE IVP PRN ×2 (00:56→15:10)
[2017-03-12] MEDS: HYDROcodone/APAP 7.5-325MG 1 EACH TAB PO PRN ×4 (04:35→20:19)
[2017-03-12 06:14] LABS: Glucose,Whole Blood 117 mg/dL (75-99)
[2017-03-12] MEDS: INSULIN LISPRO (humaLOG) 300 UNIT/3 ML VIAL SQ SCH ×4 (06:37→21:14)
[2017-03-12] MEDS: KETOROLAC 30 MG/ML 1 ML VIAL IVP SCH ×4 (06:37→22:57)
--- NOTE | 2017-03-12 07:07 | XR ---
EXAMINATION TYPE: XR chest 1V portable DATE OF EXAM: 03/12/2017 HISTORY: post chest tube insertion. REFERENCE: Previous study dated 03/11/2017 the left. FINDINGS: A left pleural drain remains in place, unchanged in appearance. No pneumothorax is seen. There is chronic apparent elevation of the right hemidiaphragm. Heart size is upper limits of normal. There is worsening interstitial and alveolar airspace disease. I suspect small effusions. IMPRESSION: 1. WORSENING INTERSTITIAL AND ALVEOLAR AIRSPACE DISEASE MAY REFLECT PULMONARY EDEMA OR ATYPICAL PNEUM ONIA. 2. BILATERAL EFFUSIONS.
[2017-03-12] MEDS: ENOXAPARIN 40 MG/0.4 ML SYRINGE SQ SCH ×2 (07:26→20:19)
[2017-03-12] MEDS: DIVALPROEX 500 MG TABLET.DR PO SCH ×2 (07:26→20:19)
[2017-03-12] MEDS: FAMOTIDINE 20 MG TAB PO SCH ×2 (07:27→20:19)
[2017-03-12] MEDS: METOPROLOL SUCCINATE (ER) 25 MG TAB.ER.24H PO SCH (07:27)
[2017-03-12] MEDS: predniSONE 20 MG TAB PO SCH (07:27)
[2017-03-12] MEDS: AZITHROMYCIN 500 MG TAB PO SCH (07:28)
[2017-03-12] MEDS: carBAMazepine 400 MG TAB.ER.12H PO SCH ×2 (07:28→20:18)
--- NOTE | 2017-03-12 08:11 | P.PN ---
Subjective Principal diagnosis: Bilateral pneumonia with hemoptysis. Chronic atrial fibrillation, seizure disorder, history of colon cancer, history of myocardial infarction, history of stroke, history of GI bleed, history of home oxygen therapy, tobacco dependence in remission, family history of lung cancer, chronic obstructive pulmonary disease with chronic hypoxic respiratory failure. Status post post CT-guided lung biopsy performed by Dr. Nazario. Subsequently developed left-sided pneumothorax with placement of pigtail drain. Developed tension pneumothorax with removal of pigtail drain and placement of left-sided chest tube. POD #2 wedge resection of the tumor left upper lobe lung. Patient sitting up in bed in mild to moderate distress. States his pain is better controlled than yesterday but still very painful. States he is still having a hard time covering things up. He is coughing after eating, feels food is going into his lungs, states he has a history of this. Objective - Vital Signs Vital signs: Vital Signs Temp 97.5 F L 03/12/17 07:24 Pulse 100 03/12/17 07:24 Resp 19 03/12/17 07:24 BP 128/63 03/12/17 07:24 Pulse Ox 95 03/12/17 07:24 Intake & Output 03/11/17 03/12/17 03/12/17 18:59 06:59 18:59 Intake Total 1010 320 Output Total 360 1070 10 Balance 650 -750 -10 Weight 71.6 kg Intake: Intake, IV Titration 50 320 Amount Dextrose 5%-0.45% NaCl 1, 320 000 ml @ 40 mls/hr IV . Q24H RADHA Rx#:[id number] cefTRIAXone 1,000 mg In 50 Sodium Chloride 0.9% 50 ml @ 100 mls/hr IVPB Q24HR RADHA Rx#:[id number] Oral 960 Output: Chest Tube Drainage 130 left chest 130 Drainage 10 140 10 Left Chest 10 140 10 Urine 350 800 Uretheral (Aparicio) 300 400 Other: Voiding Method Indwelling Catheter Urinal Urinal - Constitutional General appearance: Present: cooperative, no acute distress - Respiratory Details: Lungs sounds coarse bilaterally. Respirations even and nonlabored currently, oxygen saturation 96% on 3 L nasal cannula. Left pleural chest tube to waterseal, 50 mL serous drainage overnight, 200 mL in the last 24 hours. No air leak present. Chest x-ray this morning demonstrates worsening interstitial and alveolar airspace disease reflecting possible pulmonary edema versus atypical pneumonia as well as bilateral effusions. - Cardiovascular Details: S1, S2 present. Irregular rate and rhythm, atrial fibrillation on telemetry. No edema present. Palpable pulses bilaterally. - Gastrointestinal Gastrointestinal Comment(s): Abdomen soft, nontender, nondistended. Active bowel sounds 4 quadrants. Tolerating fluids, some foods. - Genitourinary Genitourinary Comment(s): Aparicio catheter removed yesterday. Per nursing report patient unable to void, was straight cathed yesterday. - Neurologic Neurologic: Present: CNII-XII intact - Musculoskeletal Musculoskeletal: Present: strength equal bilaterally - Psychiatric Psychiatric: Present: A&O x's 3, appropriate affect, intact judgment & insight - Allied health notes Allied health notes reviewed: nursing - Labs CBC & Chem 7: 03/10/17 06:07 03/10/17 06:07 Labs: Abnormal Lab Results - Last 24 Hours (Table) 03/11/17 03/11/17 03/11/17 Range/Units 11:52 16:26 20:54 POC Glucose (mg/dL) 110 H 111 H 111 H (75-99) mg/dL 03/12/17 Range/Units 06:11 POC Glucose (mg/dL) 117 H (75-99) mg/dL - Imaging and Cardiology Chest x-ray: report reviewed, image reviewed Assessment and Plan (1) Chronic atrial fibrillation Status: Acute (2) Seizure disorder Status: Acute (3) History of colon cancer Status: Acute (4) History of myocardial infarction Status: Acute (5) History of stroke Status: Acute (6) History of GI bleed Status: Acute (7) History of home oxygen therapy Status: Acute (8) Tobacco dependence in remission Status: Acute (9) Family history of lung cancer Status: Acute (10) COPD (chronic obstructive pulmonary disease) Status: Acute (11) Tension pneumothorax Status: Acute (12) Mass of upper lobe of left lung Status: Acute (13) Bilateral pneumonia Status: Acute (14) Chronic respiratory failure with hypoxia Status: Acute (15) Hemoptysis Status: Acute Plan: 1. Wedge biopsy done Monday, await pathology results. Will monitor chest tube output, keep to waterseal. May discontinue soon. 2. Wean O2 as tolerated. Encourage incentive spirometry use. 3. Pain medication increased. 4. Straight cath patient 1. Flomax added. If continued urinary retention RN instructed to discuss with primary for possible urology consult. 5. Medical comorbidities to be managed by primary care service. 6. Antibiotics, steroids, bronchodilators per pulmonary service. 7. Swallow eval ordered. 8. GI for/DVT prophylaxis. 9. Increase activity, ambulate in hallway. 10. Further recommendations as patient progresses. Time with Patient: Greater than 30
[2017-03-12] MEDS: BUDESONIDE 0.5 MG/2 ML NEBU INHALATION SCH ×2 (08:19→19:33)
[2017-03-12] MEDS: IPRATROPIUM-ALBUTEROL 3 ML NEB IH SCH ×4 (08:20→19:33)
[2017-03-12] MEDS: TAMSULOSIN 0.4 MG CAP.ER.24H PO SCH (08:57)
--- NOTE | 2017-03-12 09:22 | P.PN ---
Subjective Principal diagnosis: Tension pneumothorax, left upper lobe mass, bilateral pneumonia, chronic hypoxic respiratory failure, severe COPD andemphysema, hemoptysis 03/12/2017 patient seen and evaluated examined during the rounds he is having issues associated with cough congestion which is slightly better continued to have a pain at surgical site but is manageable with medication, he has problem with urinary retention requiring straight cath and initiation of Flomax which has been started and is being monitored and observed that regard. He has been advised to continue deep breathing exercises incentive spirometry overall is slightly improved compared to prior exam no more hemoptysis seen 03/11/2017, patient seen and evaluated examined in the selective care patient has successfully underwent wedge resection of the left upper lobe firm nodule which is about 2 cm in size operative reports and the primary data has been reviewed and grossly negative margins were noted the nodules been sent for histopathology final results are pending. Patient is complaining of pleuritic chest pain in the left side which is stable no pain medicine seems to be effective there is a pleural VAC is present on the right side and no air leak is present about 350 mL of dark pleural fluid has been accumulated. Patient remains on [place] antibiotics does feel some congestion and cough however no significant sputum production is seen he has baseline shortness of breath which is overall stable patient has been consult at length about importance to using IES continued to do deep breathing exercise continue pain medicine maintain patient on DVT and peptic ulcer disease prophylaxis 03/10/17- seen and examined and evaluated today on the sixth floor. Upon examination the patient is resting up in bed on room air with supplemental oxygen laying next to him. He states that he uses 2 L of supplemental oxygen off and on for comfort throughout the day when he gets winded. Patient states he does get short of breath and winded with activity and exertion. Oxygen saturations have been maintained in the mid to high 90s. Patient has been nothing by mouth since midnight for VATS procedure to be done today by cardiothoracic surgery. All labs and reports have been reviewed. 03/09/17- patient is being seen examined and evaluated today on the sixth floor. Upon examination the patient is resting up in bed on 2 L of supplemental oxygen via nasal cannula, oxygen saturations in the high 90s. Chest tube site remains clean dry and intact. Patient is being scheduled to undergo VATS procedure tomorrow with cardiothoracic surgery. He is afebrile, no overnight events. 03/08/17 patient is being seen examined and evaluated today on the sixth floor. His chest tube was removed yesterday. Dressing is clean dry and intact. Chest x-ray was reviewed from this morning does show that the left-sided chest tube has been removed without evidence for recurrent pneumothorax. Small amount of subcutaneous emphysema seen along the left chest wall. Improving left basilar infiltrate and/or atelectasis. Stable chronic density in the right upper lobe. Upon examination patient sitting up in bed on room air. He has been using supplemental oxygen on and off per the nursing staff for comfort. His oxygen saturations have remained in the mid 90s. He is afebrile, no overnight events. Patient is scheduled to go for a left video-assisted thoracoscopic wedge biopsy on Monday. 03/07/2017, patient seen and evaluated exam and on 6 floor he is breathing comfortably less short of breath his cuff congestion has improved he is not coughing purulent sputum anymore hemoptysis has resolved his chest tube has been placed on water seal a chest x-ray performed right in front of me which I have reviewed it no pneumothorax is seen on water seal. Patient is afebrile with the FiO2 is down to 2 L now and sats are 98% hemodynamic status stable except atrial fibrillation with controlled ventricular response on telemetry, the biopsy results are nondiagnostic awaiting further recommendation from cardiothoracic surgery in the meantime we'll taper down the steroids further and hopefully discontinue and next 24 hours 03/06/2017, patient seen and evaluated examined care plan discussed with the nursing staff at length biopsy results are obtained [facility]'s a nondiagnostic tissue. Patient is breathing definitely better he still have left-sided chest tube no a leak is present subcu continue him emphysema which was seen previously is almost resolved no evidence of active hemoptysis seen patient remains in atrial fibrillation with controlled ventricular response she is on subcu Lovenox is also on broad-spectrum antibiotics and oral prednisone and seems to be tolerating very well, we'll start tapering down the steroids lowered down to 30 mg daily continue other antibiotics, awaiting further recommendation from thoracic surgery patient may very well and been getting the VATS procedure with wedge resection of left upper lobe nodule and and mediastinoscopy 03/05/17, patient seen and evaluated examined today some level of pain is present on the left thoracic wall subcu emphysema which was noted previously has improved significantly patient does have intermittent cough and chest tightness proceeded he has improved though his been getting [place] and as needed Dilaudid for adequate pain control. His chest x-ray done today failed to reveal significant pneumothorax a questionable left apical pneumothorax cannot be excluded along with some interstitial edema and basal atelectasis likely related to poor respiratory effort is still waiting for the biopsy results from [facility] with further recommendations pending cardiothoracic surgery is following as well, no more evidence of any hemoptysis is been seen heart rate is better under control but however rhythm remains atrial fibrillation with controlled ventricular response 03/04/2017, patient seen and evaluated examined in ICU he is awake and alert breathing relatively comfortably would get anxious and agitated events from yesterday and last night has been noted, patient to have left left tension pneumothorax as the prior pigtail rest tube was plugged requiring emergent placement off a new 28-Polish chest tube by me in a stable position. Able to evacuate the tension pneumothorax no more bubbling was seen however patient was trying to get up late last night and to use the urinal disconnected himself over the chest tube developed shortness of breath later on the tube has been reconnected by nurse staff had no more air leak is seen in the pleural VAC. Patient has episodes of intermittent anxiety we will start him on low-dose Xanax patient had low magnesium which is being repleted he is on diet tolerated well patient has been evaluated by Dr. Persaud from thoracic surgery awaiting biopsy results with further interventions pending. His chest x-ray from earlier this morning reviewed no pneumothorax is seen chest tube was stable the right perihilar pneumonia and left lower lobe pneumonia not much change overall stable on antibiotics His labs from today's reviewed borderline hyponatremia noted he is anemic with hemoglobin of 9.6 we'll monitor observe closely Critical care time spent 35 minutes Mr. Rendon is a 67-year-old male with history of severe COPD emphysema and chronic persistent asthma patient also has history of chronic atrial fibrillation and has been attempted on anticoagulants but couldn't tolerate it because of the GI bleeding has been off of blood thinners patient is somewhat unreliable in terms of follow-up he does have a history of prior pneumonia and right-sided nodule however that did resolve though. Patient was sent from the primary care provider to my office with ongoing hemoptysis and also found to have abnormal chest x-ray and CAT scan in fact patient had a PET scan as well which revealed positive uptake in the left upper lobe nodule which was new. Patient also found to have a left upper lobe and right lower lobe infiltrate suggestive of pneumonia given the severe respiratory status patient was considered not to be a candidate for bronchoscopy and biopsies options were discussed with him to optimize therapy and decision was done to admit the patient into the hospital to treat the pneumonia and consideration of biopsy and along the same time. Patient did respond well with the antibiotics with improvement in respiratory status and hemoptysis however interventional radiology was consulted for CT-guided biopsy of left upper lobe nodule they initially attempted a small lymph node on the neck in cervical area which was nondiagnostic followed by CT-guided biopsy of left upper lobe nodule. Patient did have left the pneumothorax which was progressive and eventually giving appearance of a tension pneumothorax requiring emergent placement of a small bore chest tube by interventional radiology the pneumothorax resolved only a small residual 5% pneumothorax was seen subsequent x-ray performed in the afternoon. At that time decision was done to monitor observe and patent patient to be transferred to [facility] for further evaluation and intervention and treatment and possible resection of left upper lobe nodule Objective - Vital Signs Vital signs: Vital Signs Temp 97.5 F L 03/12/17 07:24 Pulse 100 03/12/17 08:20 Resp 19 03/12/17 07:24 BP 128/63 03/12/17 07:24 Pulse Ox 95 03/12/17 07:24 Intake & Output 03/11/17 03/12/17 03/12/17 18:59 06:59 18:59 Intake Total 1010 320 480 Output Total 360 1070 10 Balance 650 -750 470 Weight 71.6 kg Intake: Intake, IV Titration 50 320 Amount Dextrose 5%-0.45% NaCl 1, 320 000 ml @ 40 mls/hr IV . Q24H RADHA Rx#:[id number] cefTRIAXone 1,000 mg In 50 Sodium Chloride 0.9% 50 ml @ 100 mls/hr IVPB Q24HR RADHA Rx#:[id number] Oral 960 480 Output: Chest Tube Drainage 130 left chest 130 Drainage 10 140 10 Left Chest 10 140 10 Urine 350 800 Uretheral ([place]) 300 400 Other: Voiding Method Indwelling Catheter Urinal Urinal - Exam - Constitutional General appearance: cooperative, disheveled, mild distress - EENT Eyes: EOMI, PERRLA, normal appearance Ears: bilateral: normal - Neck Neck: normal ROM Carotids: bilateral: upstroke normal, bruit absent Thyroid: negative: normal size - Respiratory Respiratory: bilateral: diminished, rhonchi, wheezing, prolonged expiration, no significant subcu emphysema is seen, no more bubbling noted on chest tube air column moves fairly well with respiration and pleural VAC, patient is currently on water seal chest x-ray reviewed output 300 mL of dark pleural fluid and pleural VAC has been noted - Cardiovascular Rhythm: irregularly irregular Heart sounds: normal: S1, S2 - Gastrointestinal General gastrointestinal: decreased bowel sounds, normal bowel sounds, soft - Integumentary Integumentary: normal, normal turgor - Neurologic Neurologic: CNII-XII intact - Musculoskeletal Musculoskeletal: gait normal, generalized weakness, strength equal bilaterally - Psychiatric Psychiatric: A&O x's 3, appropriate affect, intact judgment & insight - Labs CBC & Chem 7: 03/10/17 06:07 03/10/17 06:07 Labs: Abnormal Lab Results - Last 24 Hours (Table) 03/11/17 03/11/17 03/11/17 Range/Units 11:52 16:26 20:54 POC Glucose (mg/dL) 110 H 111 H 111 H (75-99) mg/dL 03/12/17 Range/Units 06:11 POC Glucose (mg/dL) 117 H (75-99) mg/dL Assessment and Plan Plan: Assessment and Plan Plan: Assessment Bilateral pneumonia with hemoptysis Left upper lobe nodule, status post resection postop day # 2, awaiting path report Left-sided tension pneumothorax wired 28-Polish left-sided chest tube and removal Severe COPD with chronic hypoxic respiratory failure Chronic atrial fibrillation Postop urinary retention and likely BPH patient has been on Flomax now we'll monitor observe Plan Plan is to monitor observe patient in selective care, thoracic surgery consultation has been doing, patient's is status post VATS procedure for left upper lobe nodule resection with VATS resection. We will maintain patient on broad-spectrum antibiotics DVT and peptic ulcer disease prophylaxis for anxiety on on Xanax maintain patient on peptic ulcer disease prophylaxis continue Lovenox for chronic atrial fibrillation for now. we'll do a bedside spirometry patient is being maintained on subcu Lovenox will continue the antibiotics breathing treatment, steroids have been switched to oral. patient will be kept on peptic ulcer disease prophylaxis and supportive care care plan discussed with the nursing staff at length. Increase activity as tolerated. Continue pulmonary hygiene and supportive care. Supplemental oxygen to maintain oxygen saturations greater than 92%. Further recommendations pending. Time with Patient: Greater than 30
[2017-03-12 11:50] LABS: Glucose,Whole Blood 118 mg/dL (75-99)
[2017-03-12] MEDS ORDERED: FUROSEMIDE 10 MG/ML 4 ML VIAL IV STA (12:13)
[2017-03-12 16:42] LABS: Glucose,Whole Blood 126 mg/dL (75-99)
[2017-03-12 21:02] LABS: Glucose,Whole Blood 140 mg/dL (75-99)
--- NOTE | 2017-03-12 22:28 | P.PN ---
Subjective Principal diagnosis: Acute left tension pneumothorax Patient is a 67-year-old male with a known history of chronic atrial fibrillation not on any anticoagulation, seizure disorder, history of CVA/TIA, history of colon cancer status post resection and history of ID and GERD and left lung nodule who underwent CT-guided biopsy at [facility]. Patient subsequently developed tension pneumothorax and pigtail catheter and was transferred to [facility] for further evaluation by CTsurgery for the treatment of lung nodule. Patient was laced with left-sided chest tube currently. Patient is also on antibiotics for pneumonia treatment. Pulmonary and CT surgery is following this patient. Currently patient denied any worsening chest pain or short of breath. Pain is fairly controlled with pain medications. No fever no chills. Chest x-ray showed resolution of pneumothorax. Interstitial infiltrates in the left lower lobe as well as pulmonary fibrosis. On 03/04/2017 Patient remained on chest tube. Pain is controlled. No chest chest pain or worsening short of breath. No nausea vomiting or abdominal pain. Patient is tolerating diet. Elevating pathology report. No fever no chills. 03/05/2017 Patient denied any worsening pain or short of breath. No fever no chills no acute overnight issues. No nausea vomiting or abdominal pain. 03/06/2017 Patient continues to be on chest tube. Lung biopsy obtained from [facility]'s in conclusion. Pleural fluid cytopathology was sent. Patient continues to be in atrial fibrillation Chest x-ray showed no significant interval change. awaiting final plan from CT surgery. 03/07/2017 Patient was complaining of short of breath and not feeling well today afternoon. No compressive chest pain. CT surgery is planning to remove chest tube today. Chest x-ray showed a showed COPD and chronic interstitial pulmonary fibrosis. No fever no chills.. 03/08/2017 Patient says that his breathing status slightly improved. Chest tube was removed. No fever no chills. No worsening chest pain. No acute overnight issues. Tolerating diet. 03/09/2017 Patient's breathing status improved today. No overnight issues. No chest pain no worsening short of breath. No fever no chills. Objective - Vital Signs Vital signs: Vital Signs Temp 97.5 F L 03/07/17 11:24 Pulse 83 03/07/17 11:24 Resp 16 03/07/17 11:24 BP 123/57 03/07/17 11:24 Pulse Ox 95 03/07/17 11:24 Intake & Output 03/06/17 03/07/17 03/07/17 18:59 06:59 18:59 Intake Total 160 0 Output Total 660 422 Balance -500 -422 Weight 74.5 kg Intake: IV 60 Sodium Chloride 0.9% 1, 60 000 ml @ 20 mls/hr IV . Q24H RADHA Rx#:[id number] Intake, IV Titration 0 Amount Sodium Chloride 0.9% 1, 0 000 ml @ 20 mls/hr IV . Q24H RADHA Rx#:[id number] Oral 100 Output: Chest Tube Drainage 0 22 left chest 0 22 Urine 660 400 Other: Voiding Method Indwelling Catheter Toilet Urinal Urinal # Voids 1 2 # Bowel Movements 1 - Exam Patient is lying in the bed comfortably, no acute distress, awake alert and oriented.. HEENT: Normocephalic. Neck is supple. Pupils reactive. Nostrils clear. Oral cavity is moist. Ears reveal no drainage. Neck reveals no JVD, carotid bruits, or thyromegaly. CHEST EXAMINATION: Trachea is central. Symmetrical expansion. Left-sided basilar crackles and decreased breath sounds. CARDIAC: Normal S1, S2 with no gallops. No murmurs ABDOMEN: Soft. Bowel sounds normal. No organomegaly. No abdominal bruits. Extremities reveal no edema. No clubbing or cyanosis Neurologically awake, alert, oriented x3 with well-coordinated movements. Skin: no rash or skin lesions Musculoskeletal: no joint swelling or deformity. - Labs CBC & Chem 7: 03/10/17 06:07 03/10/17 06:07 Labs: Abnormal Lab Results - Last 24 Hours (Table) 03/06/17 03/06/17 03/07/17 Range/Units 16:43 20:41 05:19 RBC (4.30-5.90) m/uL Hgb (13.0-17.5) gm/dL Hct (39.0-53.0) % MCV (80.0-100.0) fL MCH (25.0-35.0) pg RDW (11.5-15.5) % Myelocytes # (Manual) (0) k/uL INR (<1.2) BUN (9-20) mg/dL POC Glucose (mg/dL) 146 H 102 H 69 L (75-99) mg/dL AST (17-59) U/L Total Protein (6.3-8.2) g/dL Albumin (3.5-5.0) g/dL 03/07/17 03/07/17 03/07/17 Range/Units 05:49 05:55 05:55 RBC 2.84 L (4.30-5.90) m/uL Hgb 10.0 L (13.0-17.5) gm/dL Hct 31.1 L (39.0-53.0) % MCV 109.5 H (80.0-100.0) fL MCH 35.3 H (25.0-35.0) pg RDW 21.6 H (11.5-15.5) % Myelocytes # (Manual) 0.12 H (0) k/uL INR 1.2 H (<1.2) BUN (9-20) mg/dL POC Glucose (mg/dL) 68 L (75-99) mg/dL AST (17-59) U/L Total Protein (6.3-8.2) g/dL Albumin (3.5-5.0) g/dL 03/07/17 03/07/17 Range/Units 05:55 06:02 RBC (4.30-5.90) m/uL Hgb (13.0-17.5) gm/dL Hct (39.0-53.0) % MCV (80.0-100.0) fL MCH (25.0-35.0) pg RDW (11.5-15.5) % Myelocytes # (Manual) (0) k/uL INR (<1.2) BUN 22 H (9-20) mg/dL POC Glucose (mg/dL) 103 H (75-99) mg/dL AST 15 L (17-59) U/L Total Protein 6.0 L (6.3-8.2) g/dL Albumin 3.1 L (3.5-5.0) g/dL Assessment and Plan Plan: Left upper lobe lung nodule status post CT-guided biopsy. Biopsy report inconclusive. Pleural fluid cytopathology showed no malignant cells. Left-sided pneumothorax followed by biopsy. Iatrogenic Bilateral pneumonia Macrocytic anemia Hypovolemic hyponatremia did improve Severe COPD with acute exacerbation Chronic hypoxic respiratory failure History of colon cancer status post resection History of ID Family history of colon cancer GERD Chronic atrial fibrillation. Currently on anticoagulation with Lovenox subcu Noncompliance with follow-up and medications History of CVA with dysarthria and left upper extremity weakness. DVT prophylaxis Plan: Patient will be continued on chest tube with suction. Continue with breathing treatments as needed. Continue with antibiotics in the form of ceftriaxone and azithromycin. Continue with prednisone 40 mg daily. Continue anticoagulation. CT surgery and pulmonary is following this patient. Chest x-ray showed improvement in pneumothorax. Continue with the pain management and follow closely. Lung biopsy report inconclusive. Pleural fluid cytopathology showed no malignant cells. Final plan from CT surgery. Pulmonary is on board. Further recommendations based on the clinical course. Prognosis is guarded.
--- NOTE | 2017-03-12 22:33 | P.PN ---
Subjective Principal diagnosis: Acute left tension pneumothorax Patient is a 67-year-old male with a known history of chronic atrial fibrillation not on any anticoagulation, seizure disorder, history of CVA/TIA, history of colon cancer status post resection and history of PA and GERD and left lung nodule who underwent CT-guided biopsy at [facility]. Patient subsequently developed tension pneumothorax and pigtail catheter and was transferred to [facility] for further evaluation by CTsurgery for the treatment of lung nodule. Patient was laced with left-sided chest tube currently. Patient is also on antibiotics for pneumonia treatment. Pulmonary and CT surgery is following this patient. Currently patient denied any worsening chest pain or short of breath. Pain is fairly controlled with pain medications. No fever no chills. Chest x-ray showed resolution of pneumothorax. Interstitial infiltrates in the left lower lobe as well as pulmonary fibrosis. On 03/04/2017 Patient remained on chest tube. Pain is controlled. No chest chest pain or worsening short of breath. No nausea vomiting or abdominal pain. Patient is tolerating diet. Elevating pathology report. No fever no chills. 03/05/2017 Patient denied any worsening pain or short of breath. No fever no chills no acute overnight issues. No nausea vomiting or abdominal pain. 03/06/2017 Patient continues to be on chest tube. Lung biopsy obtained from [facility]'s in conclusion. Pleural fluid cytopathology was sent. Patient continues to be in atrial fibrillation Chest x-ray showed no significant interval change. awaiting final plan from CT surgery. 03/07/2017 Patient was complaining of short of breath and not feeling well today afternoon. No compressive chest pain. CT surgery is planning to remove chest tube today. Chest x-ray showed a showed COPD and chronic interstitial pulmonary fibrosis. No fever no chills.. 03/08/2017 Patient says that his breathing status slightly improved. Chest tube was removed. No fever no chills. No worsening chest pain. No acute overnight issues. Tolerating diet. 03/09/2017 Patient's breathing status improved today. No overnight issues. No chest pain no worsening short of breath. No fever no chills. 03/10/2017 Patient underwent wedge resection of the tumor left upper lobe lung. Patient does have left chest tube. No fever no chills. Patient is coming of pain. No worsening short of breath. All other review of systems negative Current medications reviewed. Objective - Vital Signs Vital signs: Vital Signs Temp 98 F 03/11/17 11:34 Pulse 102 H 03/11/17 11:46 Resp 18 03/11/17 11:34 BP 105/56 03/11/17 11:34 Pulse Ox 98 03/11/17 11:34 Intake & Output 03/10/17 03/11/17 03/11/17 18:59 06:59 18:59 Intake Total 1050 290 Output Total 400 740 305 Balance 650 -740 -15 Weight 72 kg Intake: IV 900 Intake, IV Titration 150 50 Amount Lactated Ringers 1,000 ml 100 @ 20 mls/hr IV .Q24H [facility] Rx#:[id number] cefTRIAXone 1,000 mg In 50 50 Sodium Chloride 0.9% 50 ml @ 100 mls/hr IVPB Q24HR [facility] Rx#:[id number] Oral 240 Output: Chest Tube Drainage 120 left chest 120 Drainage 220 5 Left Chest 220 5 Urine 300 400 300 Uretheral (Aparicio) 300 Estimated Blood Loss 100 Other: Voiding Method Indwelling Catheter Indwelling Catheter - Exam Patient is lying in the bed comfortably, no acute distress, awake alert and oriented.. HEENT: Normocephalic. Neck is supple. Pupils reactive. Nostrils clear. Oral cavity is moist. Ears reveal no drainage. Neck reveals no JVD, carotid bruits, or thyromegaly. CHEST EXAMINATION: Trachea is central. Symmetrical expansion. Left-sided basilar crackles and decreased breath sounds. Chest tube in place. CARDIAC: Normal S1, S2 with no gallops. No murmurs ABDOMEN: Soft. Bowel sounds normal. No organomegaly. No abdominal bruits. Extremities reveal no edema. No clubbing or cyanosis Neurologically awake, alert, oriented x3 with well-coordinated movements. Skin: no rash or skin lesions Musculoskeletal: no joint swelling or deformity. - Labs CBC & Chem 7: 03/10/17 06:07 03/10/17 06:07 Labs: Abnormal Lab Results - Last 24 Hours (Table) 03/10/17 03/10/17 03/11/17 Range/Units 16:40 20:58 11:52 POC Glucose (mg/dL) 114 H 112 H 110 H (75-99) mg/dL Assessment and Plan Plan: Left upper lobe lung nodule status post CT-guided biopsy. Biopsy report inconclusive. Pleural fluid cytopathology showed no malignant cells. Patient had wedge resection of the tumor left upper lobe lung on 03/10/2017. Left-sided pneumothorax followed by biopsy. Iatrogenic Bilateral pneumonia Macrocytic anemia Hypovolemic hyponatremia did improve Severe COPD with acute exacerbation Chronic hypoxic respiratory failure History of colon cancer status post resection History of PA Family history of colon cancer GERD Chronic atrial fibrillation. Currently on anticoagulation with Lovenox subcu Noncompliance with follow-up and medications History of CVA with dysarthria and left upper extremity weakness. DVT prophylaxis Plan: Patient will be continued on chest tube with suction. Continue with breathing treatments as needed. Continue with antibiotics in the form of ceftriaxone and azithromycin. Continue with prednisone 40 mg--20mg daily. Continue anticoagulation. CT surgery and pulmonary is following this patient. Continue with the pain management and follow closely. Lung biopsy report inconclusive. Pleural fluid cytopathology showed no malignant cells. Further recommendations based on the clinical course. Prognosis is guarded.
--- NOTE | 2017-03-12 22:34 | P.PN ---
Subjective Principal diagnosis: Acute left tension pneumothorax Patient is a 67-year-old male with a known history of chronic atrial fibrillation not on any anticoagulation, seizure disorder, history of CVA/TIA, history of colon cancer status post resection and history of DE and GERD and left lung nodule who underwent CT-guided biopsy at [facility]. Patient subsequently developed tension pneumothorax and pigtail catheter and was transferred to [facility] for further evaluation by CTsurgery for the treatment of lung nodule. Patient was laced with left-sided chest tube currently. Patient is also on antibiotics for pneumonia treatment. Pulmonary and CT surgery is following this patient. Currently patient denied any worsening chest pain or short of breath. Pain is fairly controlled with pain medications. No fever no chills. Chest x-ray showed resolution of pneumothorax. Interstitial infiltrates in the left lower lobe as well as pulmonary fibrosis. On 03/04/2017 Patient remained on chest tube. Pain is controlled. No chest chest pain or worsening short of breath. No nausea vomiting or abdominal pain. Patient is tolerating diet. Elevating pathology report. No fever no chills. 03/05/2017 Patient denied any worsening pain or short of breath. No fever no chills no acute overnight issues. No nausea vomiting or abdominal pain. 03/06/2017 Patient continues to be on chest tube. Lung biopsy obtained from [facility]'s in conclusion. Pleural fluid cytopathology was sent. Patient continues to be in atrial fibrillation Chest x-ray showed no significant interval change. awaiting final plan from CT surgery. 03/07/2017 Patient was complaining of short of breath and not feeling well today afternoon. No compressive chest pain. CT surgery is planning to remove chest tube today. Chest x-ray showed a showed COPD and chronic interstitial pulmonary fibrosis. No fever no chills.. 03/08/2017 Patient says that his breathing status slightly improved. Chest tube was removed. No fever no chills. No worsening chest pain. No acute overnight issues. Tolerating diet. 03/09/2017 Patient's breathing status improved today. No overnight issues. No chest pain no worsening short of breath. No fever no chills. 03/10/2017 Patient underwent wedge resection of the tumor left upper lobe lung. Patient does have left chest tube. No fever no chills. Patient is coming of pain. No worsening short of breath. 03/11/2017 Patient denied any new complaints chest pain is controlled with pain medications. No worsening short of breath. No fever no chills. All other review of systems negative Current medications reviewed. Objective - Vital Signs Vital signs: Vital Signs Temp 97.8 F 03/11/17 15:01 Pulse 108 H 03/11/17 20:42 Resp 19 03/11/17 15:13 BP 110/60 03/11/17 15:01 Pulse Ox 98 03/11/17 20:24 Intake & Output 03/11/17 03/11/17 03/12/17 06:59 18:59 06:59 Intake Total 1010 Output Total 740 360 Balance -740 650 Weight 72 kg Intake: Intake, IV Titration 50 Amount cefTRIAXone 1,000 mg In 50 Sodium Chloride 0.9% 50 ml @ 100 mls/hr IVPB Q24HR [facility] Rx#:[id number] Oral 960 Output: Chest Tube Drainage 120 left chest 120 Drainage 220 10 Left Chest 220 10 Urine 400 350 Uretheral (Aparicio) 300 Other: Voiding Method Indwelling Catheter Indwelling Catheter - Exam Patient is lying in the bed comfortably, no acute distress, awake alert and oriented.. HEENT: Normocephalic. Neck is supple. Pupils reactive. Nostrils clear. Oral cavity is moist. Ears reveal no drainage. Neck reveals no JVD, carotid bruits, or thyromegaly. CHEST EXAMINATION: Trachea is central. Symmetrical expansion. Left-sided basilar crackles and decreased breath sounds. Chest tube in place. CARDIAC: Normal S1, S2 with no gallops. No murmurs ABDOMEN: Soft. Bowel sounds normal. No organomegaly. No abdominal bruits. Extremities reveal no edema. No clubbing or cyanosis Neurologically awake, alert, oriented x3 with well-coordinated movements. Skin: no rash or skin lesions Musculoskeletal: no joint swelling or deformity. - Labs CBC & Chem 7: 03/10/17 06:07 03/10/17 06:07 Labs: Abnormal Lab Results - Last 24 Hours (Table) 03/11/17 03/11/17 03/11/17 Range/Units 11:52 16:26 20:54 POC Glucose (mg/dL) 110 H 111 H 111 H (75-99) mg/dL Assessment and Plan Plan: Left upper lobe lung nodule status post CT-guided biopsy. Biopsy report inconclusive. Pleural fluid cytopathology showed no malignant cells. Patient had wedge resection of the tumor left upper lobe lung on 03/10/2017. Left-sided pneumothorax followed by biopsy. Iatrogenic Bilateral pneumonia Macrocytic anemia Hypovolemic hyponatremia did improve Severe COPD with acute exacerbation Chronic hypoxic respiratory failure History of colon cancer status post resection History of DE Family history of colon cancer GERD Chronic atrial fibrillation. Currently on anticoagulation with Lovenox subcu Noncompliance with follow-up and medications History of CVA with dysarthria and left upper extremity weakness. DVT prophylaxis Plan: Patient will be continued on chest tube with suction. Continue with breathing treatments as needed. Continue with antibiotics in the form of ceftriaxone and azithromycin. Continue with prednisone 40 mg--20mg daily. Continue anticoagulation. CT surgery and pulmonary is following this patient. Continue with the pain management and follow closely. Lung biopsy report inconclusive. Pleural fluid cytopathology showed no malignant cells. Further recommendations based on the clinical course. Prognosis is guarded.
--- NOTE | 2017-03-12 22:37 | P.PN ---
Subjective Principal diagnosis: Acute left tension pneumothorax Patient is a 67-year-old male with a known history of chronic atrial fibrillation not on any anticoagulation, seizure disorder, history of CVA/TIA, history of colon cancer status post resection and history of MD and GERD and left lung nodule who underwent CT-guided biopsy at [facility]. Patient subsequently developed tension pneumothorax and pigtail catheter and was transferred to [facility] for further evaluation by CTsurgery for the treatment of lung nodule. Patient was laced with left-sided chest tube currently. Patient is also on antibiotics for pneumonia treatment. Pulmonary and CT surgery is following this patient. Currently patient denied any worsening chest pain or short of breath. Pain is fairly controlled with pain medications. No fever no chills. Chest x-ray showed resolution of pneumothorax. Interstitial infiltrates in the left lower lobe as well as pulmonary fibrosis. On 03/04/2017 Patient remained on chest tube. Pain is controlled. No chest chest pain or worsening short of breath. No nausea vomiting or abdominal pain. Patient is tolerating diet. Elevating pathology report. No fever no chills. 03/05/2017 Patient denied any worsening pain or short of breath. No fever no chills no acute overnight issues. No nausea vomiting or abdominal pain. 03/06/2017 Patient continues to be on chest tube. Lung biopsy obtained from [facility]'s in conclusion. Pleural fluid cytopathology was sent. Patient continues to be in atrial fibrillation Chest x-ray showed no significant interval change. awaiting final plan from CT surgery. 03/07/2017 Patient was complaining of short of breath and not feeling well today afternoon. No compressive chest pain. CT surgery is planning to remove chest tube today. Chest x-ray showed a showed COPD and chronic interstitial pulmonary fibrosis. No fever no chills.. 03/08/2017 Patient says that his breathing status slightly improved. Chest tube was removed. No fever no chills. No worsening chest pain. No acute overnight issues. Tolerating diet. 03/09/2017 Patient's breathing status improved today. No overnight issues. No chest pain no worsening short of breath. No fever no chills. 03/10/2017 Patient underwent wedge resection of the tumor left upper lobe lung. Patient does have left chest tube. No fever no chills. Patient is coming of pain. No worsening short of breath. 03/11/2017 Patient denied any new complaints chest pain is controlled with pain medications. No worsening short of breath. No fever no chills. 03/12/2017 Patient was having short of breath this morning. X-ray showed worsening interstitial edema. Patient was given a dose of IV Lasix. No nausea vomiting or abdominal pain. Patient was also having urine retention requiring straight catheterization 1. Otherwise no acute overnight issues patient by is being continued on chest tube with suction. All other review of systems negative Current medications reviewed. Objective - Vital Signs Vital signs: Vital Signs Temp 98.9 F 03/12/17 20:00 Pulse 90 03/12/17 20:00 Resp 17 03/12/17 20:00 BP 121/57 03/12/17 20:00 Pulse Ox 95 03/12/17 20:00 Intake & Output 03/12/17 03/12/17 03/13/17 06:59 18:59 06:59 Intake Total 320 1010 Output Total 1070 1180 Balance -750 -170 Weight 71.6 kg Intake: Intake, IV Titration 320 50 Amount Dextrose 5%-0.45% NaCl 1, 320 000 ml @ 40 mls/hr IV . Q24H [facility] Rx#:[id number] cefTRIAXone 1,000 mg In 50 Sodium Chloride 0.9% 50 ml @ 100 mls/hr IVPB Q24HR [facility] Rx#:[id number] Oral 960 Output: Chest Tube Drainage 130 left chest 130 Drainage 140 30 Left Chest 140 30 Urine 800 1150 Uretheral (Aparicio) 400 Other: Voiding Method Urinal Urinal Urinal # Voids 2 - Exam Patient is lying in the bed comfortably, no acute distress, awake alert and oriented.. HEENT: Normocephalic. Neck is supple. Pupils reactive. Nostrils clear. Oral cavity is moist. Ears reveal no drainage. Neck reveals no JVD, carotid bruits, or thyromegaly. CHEST EXAMINATION: Trachea is central. Symmetrical expansion. Left-sided basilar crackles and decreased breath sounds. Chest tube in place. CARDIAC: Normal S1, S2 with no gallops. No murmurs ABDOMEN: Soft. Bowel sounds normal. No organomegaly. No abdominal bruits. Extremities reveal no edema. No clubbing or cyanosis Neurologically awake, alert, oriented x3 with well-coordinated movements. Skin: no rash or skin lesions Musculoskeletal: no joint swelling or deformity. - Labs CBC & Chem 7: 03/10/17 06:07 03/10/17 06:07 Labs: Abnormal Lab Results - Last 24 Hours (Table) 03/12/17 03/12/17 03/12/17 Range/Units 06:11 11:46 16:40 POC Glucose (mg/dL) 117 H 118 H 126 H (75-99) mg/dL 03/12/17 Range/Units 21:01 POC Glucose (mg/dL) 140 H (75-99) mg/dL Assessment and Plan Plan: Left upper lobe lung nodule status post CT-guided biopsy. Biopsy report inconclusive. Pleural fluid cytopathology showed no malignant cells. Patient had wedge resection of the tumor left upper lobe lung on 03/10/2017. Left-sided pneumothorax followed by biopsy. Iatrogenic Bilateral pneumonia Macrocytic anemia Hypovolemic hyponatremia did improve Severe COPD with acute exacerbation Chronic hypoxic respiratory failure History of colon cancer status post resection History of MD Family history of colon cancer GERD Chronic atrial fibrillation. Currently on anticoagulation with Lovenox subcu Noncompliance with follow-up and medications History of CVA with dysarthria and left upper extremity weakness. DVT prophylaxis Plan: Patient will be continued on chest tube with suction. Follow-up pathology report. Continue with breathing treatments as needed. Continue with antibiotics in the form of ceftriaxone and azithromycin. Continue with prednisone 40 mg--20mg daily. Continue anticoagulation. CT surgery and pulmonary is following this patient. Continue with the pain management and follow closely. Lung biopsy report inconclusive. Pleural fluid cytopathology showed no malignant cells. Further recommendations based on the clinical course. Prognosis is guarded. Time with Patient: Greater than 30
[2017-03-13] MEDS: HYDROmorphone 1 MG/ML 1 ML SYRINGE IVP PRN ×2 (02:03→19:55)
[2017-03-13] MEDS: HYDROcodone/APAP 7.5-325MG 1 EACH TAB PO PRN ×2 (04:57→08:14)
[2017-03-13 06:02] LABS: Glucose,Whole Blood 104 mg/dL (75-99)
[2017-03-13 06:16] LABS: Anisocytosis Moderate; Basophils % (A) 0 %; CHCM 32.1; Eosinophils # (A) 0.2 k/uL (0-0.7); Eosinophils % (A) 2 %; HCT 28.5 % (39.0-53.0); Hypochromasia Moderate; Luc # (Auto) 0.12; Luc % (Auto) 2; Lymphocytes # (A) 1.2 k/uL (1.0-4.8); Lymphocytes % (A) 16 %; MCH 35.5 pg (25.0-35.0); MCHC 31.7 g/dL (31.0-37.0); Macrocytosis Marked; Mean Platelet Volume 10.3; Monocytes # (A) 0.7 k/uL (0-1.0); Monocytes % (A) 9 %; Neutrophils # (A) 5.4 k/uL (1.3-7.7); Neutrophils % (A) 71 %; Poikilocytosis Slight; RBC 2.54 m/uL (4.30-5.90); WBC 7.6 k/uL (3.8-10.6); WBC (Perox) 7.99
[2017-03-13] MEDS: INSULIN LISPRO (humaLOG) 300 UNIT/3 ML VIAL SQ SCH ×4 (06:53→21:46)
[2017-03-13] MEDS: KETOROLAC 30 MG/ML 1 ML VIAL IVP SCH ×4 (06:59→23:28)
[2017-03-13 07:15] LABS: Anion Gap 13 mmol/L; Blood Urea Nitrogen 32 mg/dL (9-20); Calcium 8.4 mg/dL (8.4-10.2); Carbon Dioxide 18 mmol/L (22-30); Chloride 103 mmol/L (98-107); Glucose 77 mg/dL (74-99); Non-African American GFR(MDRD) >60 (>60 ml/min/1.73 sqM); Potassium 5.4 mmol/L (3.5-5.1); Sodium 134 mmol/L (137-145)
--- NOTE | 2017-03-13 07:55 | P.PN ---
<Dennise Galeas - Last Filed: 03/13/17 07:49> Subjective Principal diagnosis: Bilateral pneumonia with hemoptysis. Chronic atrial fibrillation, seizure disorder, history of colon cancer, history of myocardial infarction, history of stroke, history of GI bleed, history of home oxygen therapy, tobacco dependence in remission, family history of lung cancer, chronic obstructive pulmonary disease with chronic hypoxic respiratory failure. Status post post CT-guided lung biopsy performed by Dr. Nazario. Subsequently developed left-sided pneumothorax with placement of pigtail drain. Developed tension pneumothorax with removal of pigtail drain and placement of left-sided chest tube. POD #3 wedge resection of the tumor left upper lobe lung. Patient sitting up in bed in no acute distress. States his pain is better controlled than yesterday. States he is better able to cough things up. He is not coughing after eating as much as long as he is sitting up straight when eating. Objective - Vital Signs Vital signs: Vital Signs Temp 98.6 F 03/13/17 04:00 Pulse 98 03/13/17 04:00 Resp 18 03/13/17 04:00 BP 130/65 03/13/17 04:00 Pulse Ox 94 L 03/13/17 04:00 Intake & Output 03/12/17 03/13/17 03/13/17 18:59 06:59 18:59 Intake Total 1010 240 Output Total 1180 520 Balance -170 -520 240 Weight 74.5 kg Intake: Intake, IV Titration 50 Amount cefTRIAXone 1,000 mg In 50 Sodium Chloride 0.9% 50 ml @ 100 mls/hr IVPB Q24HR [facility] Rx#:[id number] Oral 960 240 Output: Drainage 30 Left Chest 30 Urine 1150 520 Other: Voiding Method Urinal Urinal # Voids 2 2 - Constitutional General appearance: Present: cooperative, no acute distress - Respiratory Details: Lungs sounds diminished bilaterally with coarse lung sounds on the left side. Respirations even, nonlabored. Currently on 3 L nasal cannula oxygen saturation 94%. Able to achieve 1000 mL on his incentive's premature. Left pleural chest tube to waterseal, 40 mL serous drainage overnight, 300 mL last 24 hours, no air leak present. Chest x-ray reviewed, better air exchange than yesterday. - Cardiovascular Details: S1, S2 present. Irregular rate and rhythm, atrial fibrillation on telemetry. No edema present. Palpable pulses bilaterally. - Gastrointestinal Gastrointestinal Comment(s): Abdomen soft, nontender, nondistended. Active bowel sounds 4 quadrants. Tolerating diet. - Genitourinary Genitourinary Comment(s): Able to void after initiation of Flomax. - Neurologic Neurologic: Present: CNII-XII intact - Musculoskeletal Musculoskeletal: Present: strength equal bilaterally - Psychiatric Psychiatric: Present: A&O x's 3, appropriate affect - Allied health notes Allied health notes reviewed: nursing - Labs CBC & Chem 7: 03/13/17 05:35 03/13/17 05:36 Labs: Abnormal Lab Results - Last 24 Hours (Table) 03/12/17 03/12/17 03/12/17 Range/Units 11:46 16:40 21:01 RBC (4.30-5.90) m/uL Hgb (13.0-17.5) gm/dL Hct (39.0-53.0) % MCV (80.0-100.0) fL MCH (25.0-35.0) pg RDW (11.5-15.5) % Sodium (137-145) mmol/L Potassium (3.5-5.1) mmol/L Carbon Dioxide (22-30) mmol/L BUN (9-20) mg/dL POC Glucose (mg/dL) 118 H 126 H 140 H (75-99) mg/dL 03/13/17 03/13/17 03/13/17 Range/Units 05:35 05:36 05:59 RBC 2.54 L (4.30-5.90) m/uL Hgb 9.0 L (13.0-17.5) gm/dL Hct 28.5 L (39.0-53.0) % MCV 112.0 H (80.0-100.0) fL MCH 35.5 H (25.0-35.0) pg RDW 22.0 H (11.5-15.5) % Sodium 134 L (137-145) mmol/L Potassium 5.4 H (3.5-5.1) mmol/L Carbon Dioxide 18 L (22-30) mmol/L BUN 32 H (9-20) mg/dL POC Glucose (mg/dL) 104 H (75-99) mg/dL - Imaging and Cardiology Chest x-ray: image reviewed Assessment and Plan (1) Chronic atrial fibrillation Status: Acute (2) Seizure disorder Status: Acute (3) History of colon cancer Status: Acute (4) History of myocardial infarction Status: Acute (5) History of stroke Status: Acute (6) History of GI bleed Status: Acute (7) History of home oxygen therapy Status: Acute (8) Tobacco dependence in remission Status: Acute (9) Family history of lung cancer Status: Acute (10) COPD (chronic obstructive pulmonary disease) Status: Acute (11) Tension pneumothorax Status: Acute (12) Mass of upper lobe of left lung Status: Acute (13) Bilateral pneumonia Status: Acute (14) Chronic respiratory failure with hypoxia Status: Acute (15) Hemoptysis Status: Acute Plan: 1. Wedge biopsy done Monday, await pathology results. Chest tube clamped this morning. May discontinue soon. 2. Wean O2 as tolerated. Encourage incentive spirometry use. 3. Pain management per ordered medications. 4. Continue Flomax. 5. Medical comorbidities to be managed by primary care service. 6. Antibiotics, steroids, bronchodilators per pulmonary service. 7. Swallow eval ordered. Await results. 8. GI for/DVT prophylaxis. 9. Increase activity, ambulate in hallway. 10. Further recommendations as patient progresses. Time with Patient: Greater than 30 <Gage Jimenez - Last Filed: 03/14/17 15:33> Objective - Vital Signs Vital signs: Vital Signs Temp 97.8 F 03/14/17 04:00 Pulse 94 03/14/17 13:02 Resp 16 03/14/17 14:33 BP 99/56 03/14/17 12:00 Pulse Ox 93 L 03/14/17 12:00 Intake & Output 03/13/17 03/14/17 03/14/17 18:59 06:59 18:59 Intake Total 600 20 480 Output Total 200 100 Balance 400 -80 480 Weight 74.5 kg 76.9 kg Intake: IV 20 .9 20 Oral 600 480 Output: Urine 200 100 Other: Voiding Method Urinal Urinal Urinal # Voids 2 1 - Labs CBC & Chem 7: 03/13/17 05:35 03/13/17 05:36 Labs: Abnormal Lab Results - Last 24 Hours (Table) 03/02/17 03/13/17 03/13/17 Range/Units 20:56 16:35 20:41 POC Glucose (mg/dL) 202 H 126 H 100 H (75-99) mg/dL 03/14/17 Range/Units 11:30 POC Glucose (mg/dL) 119 H (75-99) mg/dL Assessment and Plan Plan: The patient was seen and examined. I agree with the above assessment and plan. His chest tube was clamped this morning. We will repeat a chest x-ray later today. Assuming there is no progression of pneumothorax and no airleak noted, we will plan on removing the chest tube this afternoon. We are still awaiting his final pathology results following his wedge biopsy performed 3 days ago.
[2017-03-13] MEDS: TAMSULOSIN 0.4 MG CAP.ER.24H PO SCH (08:06)
[2017-03-13] MEDS: predniSONE 20 MG TAB PO SCH (08:06)
[2017-03-13] MEDS: ENOXAPARIN 40 MG/0.4 ML SYRINGE SQ SCH ×2 (08:06→19:47)
[2017-03-13] MEDS: DIVALPROEX 500 MG TABLET.DR PO SCH ×2 (08:07→19:47)
[2017-03-13] MEDS: carBAMazepine 400 MG TAB.ER.12H PO SCH ×2 (08:08→19:47)
[2017-03-13] MEDS: FAMOTIDINE 20 MG TAB PO SCH ×2 (08:08→19:47)
[2017-03-13] MEDS: METOPROLOL SUCCINATE (ER) 25 MG TAB.ER.24H PO SCH (08:08)
[2017-03-13] MEDS: AZITHROMYCIN 500 MG TAB PO SCH (08:08)
[2017-03-13] MEDS: IPRATROPIUM-ALBUTEROL 3 ML NEB IH SCH ×5 (08:26→20:15)
[2017-03-13] MEDS: BUDESONIDE 0.5 MG/2 ML NEBU INHALATION SCH ×2 (08:26→20:15)
--- NOTE | 2017-03-13 08:27 | XR ---
EXAMINATION TYPE: XR chest 2V DATE OF EXAM: 03/13/2017 COMPARISON: 03/12/2017 TECHNIQUE: PA and lateral views submitted. HISTORY: Chest tube insertion FINDINGS: Hyperinflation and diffuse interstitial process some of which represent pulmonary fibrosis is stable. Left-sided chest tube with subcutaneous emphysema and approximately 10% pneumothorax stable. Heart s ize unchanged. IMPRESSION: 1. Stable interstitial changes with findings suggestive pulmonary fibrosis. Superimposed acute inters titial process not excluded. 2. Approximate 10% left-sided pneumothorax. 3. Stable spiculated mass left upper lobe.
--- NOTE | 2017-03-13 10:23 | P.PN ---
Subjective Principal diagnosis: Tension pneumothorax, left upper lobe mass, bilateral pneumonia, chronic hypoxic respiratory failure, severe COPD andemphysema, hemoptysis 03/13/17- patient is being seen examined and evaluated today on rounds. Patient has under his VATS resection on Monday. His breathing has improved. He has no hemoptysis. Chest tube in place and is currently clamped. Chest x-ray from this morning does show a stable interstitial changes with findings suggestive pulmonary fibrosis. Superimposed acute interstitial process is not excluded. Approximate 10% left-sided pneumothorax. Stable spiculated mass left upper lobe. On examination the patient's resting up in bed on room air he is afebrile no further complaints. 03/12/2017 patient seen and evaluated examined during the rounds he is having issues associated with cough congestion which is slightly better continued to have a pain at surgical site but is manageable with medication, he has problem with urinary retention requiring straight cath and initiation of Flomax which has been started and is being monitored and observed that regard. He has been advised to continue deep breathing exercises incentive spirometry overall is slightly improved compared to prior exam no more hemoptysis seen 03/11/2017, patient seen and evaluated examined in [facility] patient has successfully underwent wedge resection of the left upper lobe firm nodule which is about 2 cm in size operative reports and the primary data has been reviewed and grossly negative margins were noted the nodules been sent for histopathology final results are pending. Patient is complaining of pleuritic chest pain in the left side which is stable no pain medicine seems to be effective there is a pleural VAC is present on the right side and no air leak is present about 350 mL of dark pleural fluid has been accumulated. Patient remains on [place] antibiotics does feel some congestion and cough however no significant sputum production is seen he has baseline shortness of breath which is overall stable patient has been consult at length about importance to using IES continued to do deep breathing exercise continue pain medicine maintain patient on DVT and peptic ulcer disease prophylaxis 03/10/17- seen and examined and evaluated today on the sixth floor. Upon examination the patient is resting up in bed on room air with supplemental oxygen laying next to him. He states that he uses 2 L of supplemental oxygen off and on for comfort throughout the day when he gets winded. Patient states he does get short of breath and winded with activity and exertion. Oxygen saturations have been maintained in the mid to high 90s. Patient has been nothing by mouth since midnight for VATS procedure to be done today by cardiothoracic surgery. All labs and reports have been reviewed. 03/09/17- patient is being seen examined and evaluated today on the sixth floor. Upon examination the patient is resting up in bed on 2 L of supplemental oxygen via nasal cannula, oxygen saturations in the high 90s. Chest tube site remains clean dry and intact. Patient is being scheduled to undergo VATS procedure tomorrow with cardiothoracic surgery. He is afebrile, no overnight events. 03/08/17 patient is being seen examined and evaluated today on the sixth floor. His chest tube was removed yesterday. Dressing is clean dry and intact. Chest x-ray was reviewed from this morning does show that the left-sided chest tube has been removed without evidence for recurrent pneumothorax. Small amount of subcutaneous emphysema seen along the left chest wall. Improving left basilar infiltrate and/or atelectasis. Stable chronic density in the right upper lobe. Upon examination patient sitting up in bed on room air. He has been using supplemental oxygen on and off per the nursing staff for comfort. His oxygen saturations have remained in the mid 90s. He is afebrile, no overnight events. Patient is scheduled to go for a left video-assisted thoracoscopic wedge biopsy on Monday. 03/07/2017, patient seen and evaluated exam and on 6 floor he is breathing comfortably less short of breath his cuff congestion has improved he is not coughing purulent sputum anymore hemoptysis has resolved his chest tube has been placed on water seal a chest x-ray performed right in front of me which I have reviewed it no pneumothorax is seen on water seal. Patient is afebrile with the FiO2 is down to 2 L now and sats are 98% hemodynamic status stable except atrial fibrillation with controlled ventricular response on telemetry, the biopsy results are nondiagnostic awaiting further recommendation from cardiothoracic surgery in the meantime we'll taper down the steroids further and hopefully discontinue and next 24 hours 03/06/2017, patient seen and evaluated examined care plan discussed with the nursing staff at length biopsy results are obtained [facility]'s a nondiagnostic tissue. Patient is breathing definitely better he still have left-sided chest tube no a leak is present subcu continue him emphysema which was seen previously is almost resolved no evidence of active hemoptysis seen patient remains in atrial fibrillation with controlled ventricular response she is on subcu Lovenox is also on broad-spectrum antibiotics and oral prednisone and seems to be tolerating very well, we'll start tapering down the steroids lowered down to 30 mg daily continue other antibiotics, awaiting further recommendation from thoracic surgery patient may very well and been getting the VATS procedure with wedge resection of left upper lobe nodule and and mediastinoscopy 03/05/17, patient seen and evaluated examined today some level of pain is present on the left thoracic wall subcu emphysema which was noted previously has improved significantly patient does have intermittent cough and chest tightness proceeded he has improved though his been getting [place] and as needed Dilaudid for adequate pain control. His chest x-ray done today failed to reveal significant pneumothorax a questionable left apical pneumothorax cannot be excluded along with some interstitial edema and basal atelectasis likely related to poor respiratory effort is still waiting for the biopsy results from [facility] with further recommendations pending cardiothoracic surgery is following as well, no more evidence of any hemoptysis is been seen heart rate is better under control but however rhythm remains atrial fibrillation with controlled ventricular response 03/04/2017, patient seen and evaluated examined in ICU he is awake and alert breathing relatively comfortably would get anxious and agitated events from yesterday and last night has been noted, patient to have left left tension pneumothorax as the prior pigtail rest tube was plugged requiring emergent placement off a new 28-[place] chest tube by me in a stable position. Able to evacuate the tension pneumothorax no more bubbling was seen however patient was trying to get up late last night and to use the urinal disconnected himself over the chest tube developed shortness of breath later on the tube has been reconnected by nurse staff had no more air leak is seen in the pleural VAC. Patient has episodes of intermittent anxiety we will start him on low-dose Xanax patient had low magnesium which is being repleted he is on diet tolerated well patient has been evaluated by Dr. Persaud from thoracic surgery awaiting biopsy results with further interventions pending. His chest x-ray from earlier this morning reviewed no pneumothorax is seen chest tube was stable the right perihilar pneumonia and left lower lobe pneumonia not much change overall stable on antibiotics His labs from today's reviewed borderline hyponatremia noted he is anemic with hemoglobin of 9.6 we'll monitor observe closely Critical care time spent 35 minutes Mr. Rendon is a 67-year-old male with history of severe COPD emphysema and chronic persistent asthma patient also has history of chronic atrial fibrillation and has been attempted on anticoagulants but couldn't tolerate it because of the GI bleeding has been off of blood thinners patient is somewhat unreliable in terms of follow-up he does have a history of prior pneumonia and right-sided nodule however that did resolve though. Patient was sent from the primary care provider to my office with ongoing hemoptysis and also found to have abnormal chest x-ray and CAT scan in fact patient had a PET scan as well which revealed positive uptake in the left upper lobe nodule which was new. Patient also found to have a left upper lobe and right lower lobe infiltrate suggestive of pneumonia given the severe respiratory status patient was considered not to be a candidate for bronchoscopy and biopsies options were discussed with him to optimize therapy and decision was done to admit the patient into the hospital to treat the pneumonia and consideration of biopsy and along the same time. Patient did respond well with the antibiotics with improvement in respiratory status and hemoptysis however interventional radiology was consulted for CT-guided biopsy of left upper lobe nodule they initially attempted a small lymph node on the neck in cervical area which was nondiagnostic followed by CT-guided biopsy of left upper lobe nodule. Patient did have left the pneumothorax which was progressive and eventually giving appearance of a tension pneumothorax requiring emergent placement of a small bore chest tube by interventional radiology the pneumothorax resolved only a small residual 5% pneumothorax was seen subsequent x-ray performed in the afternoon. At that time decision was done to monitor observe and patent patient to be transferred to [facility] for further evaluation and intervention and treatment and possible resection of left upper lobe nodule Objective - Vital Signs Vital signs: Vital Signs Temp 98.1 F 03/13/17 08:00 Pulse 90 03/13/17 08:37 Resp 16 03/13/17 08:00 BP 103/92 03/13/17 08:00 Pulse Ox 98 03/13/17 08:00 Intake & Output 03/12/17 03/13/17 03/13/17 18:59 06:59 18:59 Intake Total 1010 240 Output Total 1180 520 Balance -170 -520 240 Weight 74.5 kg Intake: Intake, IV Titration 50 Amount cefTRIAXone 1,000 mg In 50 Sodium Chloride 0.9% 50 ml @ 100 mls/hr IVPB Q24HR RADHA Rx#:[id number] Oral 960 240 Output: Drainage 30 Left Chest 30 Urine 1150 520 Other: Voiding Method Urinal Urinal # Voids 2 2 - Exam - Exam - Constitutional General appearance: cooperative, disheveled, mild distress - EENT Eyes: EOMI, PERRLA, normal appearance Ears: bilateral: normal - Neck Neck: normal ROM Carotids: bilateral: upstroke normal, bruit absent Thyroid: negative: normal size - Respiratory Respiratory: bilateral: diminished, rhonchi, wheezing, prolonged expiration, no significant subcu emphysema is seen, no more bubbling noted on chest tube air column moves fairly well with respiration and pleural VAC, has been clamped. Chest x-ray reviewed output 40 mL of dark pleural fluid and pleural VAC has been noted overnight - Cardiovascular Rhythm: irregularly irregular Heart sounds: normal: S1, S2 - Gastrointestinal General gastrointestinal: decreased bowel sounds, normal bowel sounds, soft - Integumentary Integumentary: normal, normal turgor - Neurologic Neurologic: CNII-XII intact - Musculoskeletal Musculoskeletal: gait normal, generalized weakness, strength equal bilaterally - Psychiatric Psychiatric: A&O x's 3, appropriate affect, intact judgment & insight - Labs CBC & Chem 7: 03/13/17 05:35 03/13/17 05:36 Labs: Abnormal Lab Results - Last 24 Hours (Table) 03/12/17 03/12/17 03/12/17 Range/Units 11:46 16:40 21:01 RBC (4.30-5.90) m/uL Hgb (13.0-17.5) gm/dL Hct (39.0-53.0) % MCV (80.0-100.0) fL MCH (25.0-35.0) pg RDW (11.5-15.5) % Sodium (137-145) mmol/L Potassium (3.5-5.1) mmol/L Carbon Dioxide (22-30) mmol/L BUN (9-20) mg/dL POC Glucose (mg/dL) 118 H 126 H 140 H (75-99) mg/dL 03/13/17 03/13/17 03/13/17 Range/Units 05:35 05:36 05:59 RBC 2.54 L (4.30-5.90) m/uL Hgb 9.0 L (13.0-17.5) gm/dL Hct 28.5 L (39.0-53.0) % MCV 112.0 H (80.0-100.0) fL MCH 35.5 H (25.0-35.0) pg RDW 22.0 H (11.5-15.5) % Sodium 134 L (137-145) mmol/L Potassium 5.4 H (3.5-5.1) mmol/L Carbon Dioxide 18 L (22-30) mmol/L BUN 32 H (9-20) mg/dL POC Glucose (mg/dL) 104 H (75-99) mg/dL Assessment and Plan Plan: Assessment Bilateral pneumonia with hemoptysis Left upper lobe nodule Left-sided iatrogenic tension pneumothorax status post new 28-[place] left-sided chest tube and removal of old pigtail catheter Severe COPD with chronic hypoxic respiratory failure Chronic atrial fibrillation Plan Plan is to monitor observe patient in selective care, thoracic surgery consultation has been doing, patient's is status post VATS procedure for left upper lobe nodule resection with VATS resection. We will maintain patient on broad-spectrum antibiotics DVT and peptic ulcer disease prophylaxis for anxiety on on Xanax maintain patient on peptic ulcer disease prophylaxis continue Lovenox for chronic atrial fibrillation for now. we'll do a bedside spirometry patient is being maintained on subcu Lovenox will continue the antibiotics breathing treatment, steroids have been switched to oral. patient will be kept on peptic ulcer disease prophylaxis and supportive care care plan discussed with the nursing staff at length. Increase activity as tolerated. Continue pulmonary hygiene and supportive care. Supplemental oxygen to maintain oxygen saturations greater than 92%. Further recommendations pending. I performed an examination of the patient and discussed their management with the nurse practitioner. I have reviewed the nurse practitioner's note and agree with the documented findings and plan of care.
[2017-03-13 11:32] LABS: Glucose,Whole Blood 111 mg/dL (75-99)
[2017-03-13] MEDS: IPRATROPIUM-ALBUTEROL 3 ML NEB INHALATION PRN (12:10)
--- NOTE | 2017-03-13 12:35 | XR ---
EXAMINATION TYPE: XR chest 2V DATE OF EXAM: 03/13/2017 COMPARISON: 03/13/2017 TECHNIQUE: PA and lateral views submitted. HISTORY: Pneumothorax FINDINGS: Diffuse interstitial pattern persists with subsegmental consolidation and tiny effusions. Subcutaneou s emphysema left-sided chest tube. No sizable pneumothorax. Spiculated density left upper lobe persis ts. Degenerative change of the spine. IMPRESSION: 1. COPD with suspected pulmonary fibrosis and spiculated left upper lobe lung mass. 2. No sizable pneumothorax.
[2017-03-13 16:37] LABS: Glucose,Whole Blood 126 mg/dL (75-99)
[2017-03-13 20:43] LABS: Glucose,Whole Blood 100 mg/dL (75-99)
--- NOTE | 2017-03-13 22:41 | P.PN ---
Subjective Principal diagnosis: Acute left tension pneumothorax Patient is a 67-year-old male with a known history of chronic atrial fibrillation not on any anticoagulation, seizure disorder, history of CVA/TIA, history of colon cancer status post resection and history of ME and GERD and left lung nodule who underwent CT-guided biopsy at [facility]. Patient subsequently developed tension pneumothorax and pigtail catheter and was transferred to [facility] for further evaluation by CTsurgery for the treatment of lung nodule. Patient was laced with left-sided chest tube currently. Patient is also on antibiotics for pneumonia treatment. Pulmonary and CT surgery is following this patient. Currently patient denied any worsening chest pain or short of breath. Pain is fairly controlled with pain medications. No fever no chills. Chest x-ray showed resolution of pneumothorax. Interstitial infiltrates in the left lower lobe as well as pulmonary fibrosis. On 03/04/2017 Patient remained on chest tube. Pain is controlled. No chest chest pain or worsening short of breath. No nausea vomiting or abdominal pain. Patient is tolerating diet. Elevating pathology report. No fever no chills. 03/05/2017 Patient denied any worsening pain or short of breath. No fever no chills no acute overnight issues. No nausea vomiting or abdominal pain. 03/06/2017 Patient continues to be on chest tube. Lung biopsy obtained from [facility]'s in conclusion. Pleural fluid cytopathology was sent. Patient continues to be in atrial fibrillation Chest x-ray showed no significant interval change. awaiting final plan from CT surgery. 03/07/2017 Patient was complaining of short of breath and not feeling well today afternoon. No compressive chest pain. CT surgery is planning to remove chest tube today. Chest x-ray showed a showed COPD and chronic interstitial pulmonary fibrosis. No fever no chills.. 03/08/2017 Patient says that his breathing status slightly improved. Chest tube was removed. No fever no chills. No worsening chest pain. No acute overnight issues. Tolerating diet. 03/09/2017 Patient's breathing status improved today. No overnight issues. No chest pain no worsening short of breath. No fever no chills. 03/10/2017 Patient underwent wedge resection of the tumor left upper lobe lung. Patient does have left chest tube. No fever no chills. Patient is coming of pain. No worsening short of breath. 03/11/2017 Patient denied any new complaints chest pain is controlled with pain medications. No worsening short of breath. No fever no chills. 03/12/2017 Patient was having short of breath this morning. X-ray showed worsening interstitial edema. Patient was given a dose of IV Lasix. No nausea vomiting or abdominal pain. Patient was also having urine retention requiring straight catheterization 1. Otherwise no acute overnight issues patient by is being continued on chest tube with suction. 03/13/2017 Chest tube was removed today. Patient is complaining of short of breath but not worsening. Pain at chest tube insertion site. No nausea or vomiting. No fever no chills. No acute overnight issues. Biopsy report pending. All other review of systems negative Current medications reviewed. Objective - Vital Signs Vital signs: Vital Signs Temp 98.5 F 03/13/17 19:58 Pulse 86 03/13/17 20:30 Resp 18 03/13/17 19:58 BP 123/65 03/13/17 19:58 Pulse Ox 100 03/13/17 19:58 Intake & Output 03/13/17 03/13/17 03/14/17 06:59 18:59 06:59 Intake Total 600 Output Total 520 200 Balance -520 400 Weight 74.5 kg 74.5 kg Intake: Oral 600 Output: Urine 520 200 Other: Voiding Method Urinal Urinal Urinal # Voids 2 2 - Exam Patient is lying in the bed comfortably, no acute distress, awake alert and oriented.. HEENT: Normocephalic. Neck is supple. Pupils reactive. Nostrils clear. Oral cavity is moist. Ears reveal no drainage. Neck reveals no JVD, carotid bruits, or thyromegaly. CHEST EXAMINATION: Trachea is central. Symmetrical expansion. Left-sided basilar crackles and decreased breath sounds. CARDIAC: Normal S1, S2 with no gallops. No murmurs ABDOMEN: Soft. Bowel sounds normal. No organomegaly. No abdominal bruits. Extremities reveal no edema. No clubbing or cyanosis Neurologically awake, alert, oriented x3 with well-coordinated movements. Skin: no rash or skin lesions Musculoskeletal: no joint swelling or deformity. - Labs CBC & Chem 7: 03/13/17 05:35 03/13/17 05:36 Labs: Abnormal Lab Results - Last 24 Hours (Table) 03/13/17 03/13/17 03/13/17 Range/Units 05:35 05:36 05:59 RBC 2.54 L (4.30-5.90) m/uL Hgb 9.0 L (13.0-17.5) gm/dL Hct 28.5 L (39.0-53.0) % MCV 112.0 H (80.0-100.0) fL MCH 35.5 H (25.0-35.0) pg RDW 22.0 H (11.5-15.5) % Sodium 134 L (137-145) mmol/L Potassium 5.4 H (3.5-5.1) mmol/L Carbon Dioxide 18 L (22-30) mmol/L BUN 32 H (9-20) mg/dL POC Glucose (mg/dL) 104 H (75-99) mg/dL 03/13/17 03/13/17 03/13/17 Range/Units 11:31 16:35 20:41 RBC (4.30-5.90) m/uL Hgb (13.0-17.5) gm/dL Hct (39.0-53.0) % MCV (80.0-100.0) fL MCH (25.0-35.0) pg RDW (11.5-15.5) % Sodium (137-145) mmol/L Potassium (3.5-5.1) mmol/L Carbon Dioxide (22-30) mmol/L BUN (9-20) mg/dL POC Glucose (mg/dL) 111 H 126 H 100 H (75-99) mg/dL Assessment and Plan Plan: Left upper lobe lung nodule status post CT-guided biopsy initially. Biopsy report inconclusive at the time. Pleural fluid cytopathology showed no malignant cells. Patient had wedge resection of the tumor left upper lobe lung on 03/10/2017. Biopsy report pending. Left-sided pneumothorax followed by biopsy. Iatrogenic Bilateral pneumonia Macrocytic anemia Hypovolemic hyponatremia did improve Severe COPD with acute exacerbation Chronic hypoxic respiratory failure History of colon cancer status post resection History of [place] Family history of colon cancer GERD Chronic atrial fibrillation. Currently on anticoagulation with Lovenox subcu Noncompliance with follow-up and medications History of CVA with dysarthria and left upper extremity weakness. DVT prophylaxis Plan: Follow-up pathology report. Continue with breathing treatments as needed. Continue with antibiotics in the form of ceftriaxone and azithromycin. Continue with prednisone 40 mg--20mg daily. Continue anticoagulation. CT surgery and pulmonary is following this patient. Continue with the pain management and follow closely. Initial Lung biopsy report inconclusive. Pleural fluid cytopathology showed no malignant cells. Further recommendations based on the clinical course. Prognosis is guarded.
[2017-03-14] MEDS: HYDROcodone/APAP 7.5-325MG 1 EACH TAB PO PRN ×2 (00:49→09:42)
[2017-03-14] MEDS: HYDROmorphone 1 MG/ML 1 ML SYRINGE IVP PRN (04:44)
[2017-03-14] MEDS: IPRATROPIUM-ALBUTEROL 3 ML NEB INHALATION PRN (04:56)
[2017-03-14 06:26] LABS: Glucose,Whole Blood 87 mg/dL (75-99)
[2017-03-14] MEDS: INSULIN LISPRO (humaLOG) 300 UNIT/3 ML VIAL SQ SCH ×4 (06:39→21:07)
[2017-03-14] MEDS: KETOROLAC 30 MG/ML 1 ML VIAL IVP SCH ×4 (06:46→23:57)
--- NOTE | 2017-03-14 07:45 | P.PN ---
<Dennise Galeas - Last Filed: 03/14/17 07:38> Subjective Principal diagnosis: Bilateral pneumonia with hemoptysis. Chronic atrial fibrillation, seizure disorder, history of colon cancer, history of myocardial infarction, history of stroke, history of GI bleed, history of home oxygen therapy, tobacco dependence in remission, family history of lung cancer, chronic obstructive pulmonary disease with chronic hypoxic respiratory failure. Status post post CT-guided lung biopsy performed by Dr. Nazario. Subsequently developed left-sided pneumothorax with placement of pigtail drain. Developed tension pneumothorax with removal of pigtail drain and placement of left-sided chest tube. POD #4 wedge resection of the tumor left upper lobe lung. Patient sitting up in bed in no acute distress. States his pain is better controlled. Chest tube was discontinued yesterday. Objective - Vital Signs Vital signs: Vital Signs Temp 97.8 F 03/14/17 04:00 Pulse 93 03/14/17 05:07 Resp 18 03/14/17 04:00 BP 102/55 03/14/17 04:00 Pulse Ox 99 03/14/17 04:00 Intake & Output 03/13/17 03/14/17 03/14/17 18:59 06:59 18:59 Intake Total 600 20 Output Total 200 100 Balance 400 -80 Weight 74.5 kg 76.9 kg Intake: IV 20 .9 20 Oral 600 Output: Urine 200 100 Other: Voiding Method Urinal Urinal # Voids 2 1 - Constitutional General appearance: Present: cooperative, no acute distress - Respiratory Details: Lungs sounds diminished bilaterally with coarse breath sounds left base. Respirations even, nonlabored. Currently on 3 L nasal cannula saturation 99%. Able to achieve 1250 mL on his incentive spirometry. Weak cough. Chest x-ray reviewed, no pneumothorax - Cardiovascular Details: S1, S2 present. Irregular rate and rhythm, atrial fibrillation on telemetry. No edema present. Palpable pulses bilaterally. - Gastrointestinal Gastrointestinal Comment(s): Abdomen soft, nontender, nondistended. Active bowel sounds 4 quadrants. Tolerating diet. - Genitourinary Genitourinary Comment(s): Continues to void. - Integumentary Integumentary Comment(s): Left lateral chest tube site dressing reinforced, serous drainage present from site. - Neurologic Neurologic: Present: CNII-XII intact - Musculoskeletal Musculoskeletal: Present: gait normal, strength equal bilaterally - Psychiatric Psychiatric: Present: A&O x's 3, appropriate affect, intact judgment & insight - Allied health notes Allied health notes reviewed: nursing - Labs CBC & Chem 7: 03/13/17 05:35 03/13/17 05:36 Labs: Abnormal Lab Results - Last 24 Hours (Table) 03/13/17 03/13/17 03/13/17 Range/Units 11:31 16:35 20:41 POC Glucose (mg/dL) 111 H 126 H 100 H (75-99) mg/dL - Imaging and Cardiology Chest x-ray: image reviewed Assessment and Plan (1) Chronic atrial fibrillation Status: Acute (2) Seizure disorder Status: Acute (3) History of colon cancer Status: Acute (4) History of myocardial infarction Status: Acute (5) History of stroke Status: Acute (6) History of GI bleed Status: Acute (7) History of home oxygen therapy Status: Acute (8) Tobacco dependence in remission Status: Acute (9) Family history of lung cancer Status: Acute (10) COPD (chronic obstructive pulmonary disease) Status: Acute (11) Tension pneumothorax Status: Acute (12) Mass of upper lobe of left lung Status: Acute (13) Bilateral pneumonia Status: Acute (14) Chronic respiratory failure with hypoxia Status: Acute (15) Hemoptysis Status: Acute Plan: 1. Wedge biopsy done Monday, await pathology results. Chest tube discontinued yesterday. 2. Wean O2 as tolerated. Encourage incentive spirometry use. 3. Pain management per ordered medications. 4. Medical comorbidities to be managed by primary care service. 5. Antibiotics, steroids, bronchodilators per pulmonary service. 6. GI for/DVT prophylaxis. 7. Increase activity, ambulate in hallway. 8. Will continue to see as needed. Please contact us with any questions. Time with Patient: Greater than 30 <Gage Jimenez - Last Filed: 03/14/17 15:16> Objective - Vital Signs Vital signs: Vital Signs Temp 97.8 F 03/14/17 04:00 Pulse 94 03/14/17 13:02 Resp 16 03/14/17 14:33 BP 99/56 03/14/17 12:00 Pulse Ox 93 L 03/14/17 12:00 Intake & Output 03/13/17 03/14/17 03/14/17 18:59 06:59 18:59 Intake Total 600 20 480 Output Total 200 100 Balance 400 -80 480 Weight 74.5 kg 76.9 kg Intake: IV 20 .9 20 Oral 600 480 Output: Urine 200 100 Other: Voiding Method Urinal Urinal Urinal # Voids 2 1 - Labs CBC & Chem 7: 03/13/17 05:35 03/13/17 05:36 Labs: Abnormal Lab Results - Last 24 Hours (Table) 03/02/17 03/13/17 03/13/17 Range/Units 20:56 16:35 20:41 POC Glucose (mg/dL) 202 H 126 H 100 H (75-99) mg/dL 03/14/17 Range/Units 11:30 POC Glucose (mg/dL) 119 H (75-99) mg/dL Assessment and Plan Plan: The patient was seen and examined. I agree with the above assessment and plan. The patient's chest tube was removed yesterday. Today's chest x-ray does not reveal any obvious pneumothorax. We will continue to encourage ambulation and incentive spirometry. We are still awaiting final pathology results. Further recommendations to follow.
[2017-03-14] MEDS: IPRATROPIUM-ALBUTEROL 3 ML NEB IH SCH ×4 (08:10→21:14)
[2017-03-14] MEDS: BUDESONIDE 0.5 MG/2 ML NEBU INHALATION SCH ×2 (08:10→21:14)
--- NOTE | 2017-03-14 08:41 | XR ---
EXAMINATION TYPE: XR chest 2V DATE OF EXAM: 03/14/2017 COMPARISON: 03/13/2017 TECHNIQUE: PA and lateral views submitted. HISTORY: Pneumothorax FINDINGS: Fuson interstitial pattern is stable. Spiculated density left upper lobe remains stable. Chest tube i s been removed with no sizable pneumothorax. Subcutaneous emphysema persists. Atherosclerotic change aorta. IMPRESSION: 1. No sizable pneumothorax 2. Spiculated mass left upper lobe 3. Pulmonary fibrosis and changes of COPD
[2017-03-14] MEDS: TAMSULOSIN 0.4 MG CAP.ER.24H PO SCH (09:37)
[2017-03-14] MEDS: predniSONE 20 MG TAB PO SCH (09:37)
[2017-03-14] MEDS: DIVALPROEX 500 MG TABLET.DR PO SCH ×2 (09:37→20:05)
[2017-03-14] MEDS: carBAMazepine 400 MG TAB.ER.12H PO SCH ×2 (09:37→20:05)
[2017-03-14] MEDS: FAMOTIDINE 20 MG TAB PO SCH ×2 (09:37→20:06)
[2017-03-14] MEDS: ENOXAPARIN 40 MG/0.4 ML SYRINGE SQ SCH ×2 (09:37→20:05)
--- NOTE | 2017-03-14 10:52 | P.PN ---
Subjective Principal diagnosis: Tension pneumothorax, left upper lobe mass, bilateral pneumonia, chronic hypoxic respiratory failure, severe COPD andemphysema, hemoptysis 03/14/17- patient is being seen in evaluated and examined today on rounds. Patient did have chest tube removal yesterday. Dressing is clean dry and intact. Chest x-ray has been reviewed and shows no sizable pneumothorax, spiculated mass in the left upper lobe, pulmonary fibrosis and changes of COPD. Patient encouraged to use incentive spirometer and increase activity as tolerated. He is afebrile, no overnight events. 03/13/17- patient is being seen examined and evaluated today on rounds. Patient has under his VATS resection on Monday. His breathing has improved. He has no hemoptysis. Chest tube in place and is currently clamped. Chest x-ray from this morning does show a stable interstitial changes with findings suggestive pulmonary fibrosis. Superimposed acute interstitial process is not excluded. Approximate 10% left-sided pneumothorax. Stable spiculated mass left upper lobe. On examination the patient's resting up in bed on room air he is afebrile no further complaints. 03/12/2017 patient seen and evaluated examined during the rounds he is having issues associated with cough congestion which is slightly better continued to have a pain at surgical site but is manageable with medication, he has problem with urinary retention requiring straight cath and initiation of Flomax which has been started and is being monitored and observed that regard. He has been advised to continue deep breathing exercises incentive spirometry overall is slightly improved compared to prior exam no more hemoptysis seen 03/11/2017, patient seen and evaluated examined in the [facility] care patient has successfully underwent wedge resection of the left upper lobe firm nodule which is about 2 cm in size operative reports and the primary data has been reviewed and grossly negative margins were noted the nodules been sent for histopathology final results are pending. Patient is complaining of pleuritic chest pain in the left side which is stable no pain medicine seems to be effective there is a pleural VAC is present on the right side and no air leak is present about 350 mL of dark pleural fluid has been accumulated. Patient remains on [place] antibiotics does feel some congestion and cough however no significant sputum production is seen he has baseline shortness of breath which is overall stable patient has been consult at length about importance to using IES continued to do deep breathing exercise continue pain medicine maintain patient on DVT and peptic ulcer disease prophylaxis 03/10/17- seen and examined and evaluated today on the sixth floor. Upon examination the patient is resting up in bed on room air with supplemental oxygen laying next to him. He states that he uses 2 L of supplemental oxygen off and on for comfort throughout the day when he gets winded. Patient states he does get short of breath and winded with activity and exertion. Oxygen saturations have been maintained in the mid to high 90s. Patient has been nothing by mouth since midnight for VATS procedure to be done today by cardiothoracic surgery. All labs and reports have been reviewed. 03/09/17- patient is being seen examined and evaluated today on the sixth floor. Upon examination the patient is resting up in bed on 2 L of supplemental oxygen via nasal cannula, oxygen saturations in the high 90s. Chest tube site remains clean dry and intact. Patient is being scheduled to undergo VATS procedure tomorrow with cardiothoracic surgery. He is afebrile, no overnight events. 03/08/17 patient is being seen examined and evaluated today on the sixth floor. His chest tube was removed yesterday. Dressing is clean dry and intact. Chest x-ray was reviewed from this morning does show that the left-sided chest tube has been removed without evidence for recurrent pneumothorax. Small amount of subcutaneous emphysema seen along the left chest wall. Improving left basilar infiltrate and/or atelectasis. Stable chronic density in the right upper lobe. Upon examination patient sitting up in bed on room air. He has been using supplemental oxygen on and off per the nursing staff for comfort. His oxygen saturations have remained in the mid 90s. He is afebrile, no overnight events. Patient is scheduled to go for a left video-assisted thoracoscopic wedge biopsy on Monday. 03/07/2017, patient seen and evaluated exam and on 6 floor he is breathing comfortably less short of breath his cuff congestion has improved he is not coughing purulent sputum anymore hemoptysis has resolved his chest tube has been placed on water seal a chest x-ray performed right in front of me which I have reviewed it no pneumothorax is seen on water seal. Patient is afebrile with the FiO2 is down to 2 L now and sats are 98% hemodynamic status stable except atrial fibrillation with controlled ventricular response on telemetry, the biopsy results are nondiagnostic awaiting further recommendation from cardiothoracic surgery in the meantime we'll taper down the steroids further and hopefully discontinue and next 24 hours 03/06/2017, patient seen and evaluated examined care plan discussed with the nursing staff at length biopsy results are obtained [facility]'s a nondiagnostic tissue. Patient is breathing definitely better he still have left-sided chest tube no a leak is present subcu continue him emphysema which was seen previously is almost resolved no evidence of active hemoptysis seen patient remains in atrial fibrillation with controlled ventricular response she is on subcu Lovenox is also on broad-spectrum antibiotics and oral prednisone and seems to be tolerating very well, we'll start tapering down the steroids lowered down to 30 mg daily continue other antibiotics, awaiting further recommendation from thoracic surgery patient may very well and been getting the VATS procedure with wedge resection of left upper lobe nodule and and mediastinoscopy 03/05/17, patient seen and evaluated examined today some level of pain is present on the left thoracic wall subcu emphysema which was noted previously has improved significantly patient does have intermittent cough and chest tightness proceeded he has improved though his been getting [place] and as needed Dilaudid for adequate pain control. His chest x-ray done today failed to reveal significant pneumothorax a questionable left apical pneumothorax cannot be excluded along with some interstitial edema and basal atelectasis likely related to poor respiratory effort is still waiting for the biopsy results from [facility] with further recommendations pending cardiothoracic surgery is following as well, no more evidence of any hemoptysis is been seen heart rate is better under control but however rhythm remains atrial fibrillation with controlled ventricular response 03/04/2017, patient seen and evaluated examined in ICU he is awake and alert breathing relatively comfortably would get anxious and agitated events from yesterday and last night has been noted, patient to have left left tension pneumothorax as the prior pigtail rest tube was plugged requiring emergent placement off a new 28-Maori chest tube by me in a stable position. Able to evacuate the tension pneumothorax no more bubbling was seen however patient was trying to get up late last night and to use the urinal disconnected himself over the chest tube developed shortness of breath later on the tube has been reconnected by nurse staff had no more air leak is seen in the pleural VAC. Patient has episodes of intermittent anxiety we will start him on low-dose Xanax patient had low magnesium which is being repleted he is on diet tolerated well patient has been evaluated by Dr. Persaud from thoracic surgery awaiting biopsy results with further interventions pending. His chest x-ray from earlier this morning reviewed no pneumothorax is seen chest tube was stable the right perihilar pneumonia and left lower lobe pneumonia not much change overall stable on antibiotics His labs from today's reviewed borderline hyponatremia noted he is anemic with hemoglobin of 9.6 we'll monitor observe closely Critical care time spent 35 minutes Mr. Rendon is a 67-year-old male with history of severe COPD emphysema and chronic persistent asthma patient also has history of chronic atrial fibrillation and has been attempted on anticoagulants but couldn't tolerate it because of the GI bleeding has been off of blood thinners patient is somewhat unreliable in terms of follow-up he does have a history of prior pneumonia and right-sided nodule however that did resolve though. Patient was sent from the primary care provider to my office with ongoing hemoptysis and also found to have abnormal chest x-ray and CAT scan in fact patient had a PET scan as well which revealed positive uptake in the left upper lobe nodule which was new. Patient also found to have a left upper lobe and right lower lobe infiltrate suggestive of pneumonia given the severe respiratory status patient was considered not to be a candidate for bronchoscopy and biopsies options were discussed with him to optimize therapy and decision was done to admit the patient into the hospital to treat the pneumonia and consideration of biopsy and along the same time. Patient did respond well with the antibiotics with improvement in respiratory status and hemoptysis however interventional radiology was consulted for CT-guided biopsy of left upper lobe nodule they initially attempted a small lymph node on the neck in cervical area which was nondiagnostic followed by CT-guided biopsy of left upper lobe nodule. Patient did have left the pneumothorax which was progressive and eventually giving appearance of a tension pneumothorax requiring emergent placement of a small bore chest tube by interventional radiology the pneumothorax resolved only a small residual 5% pneumothorax was seen subsequent x-ray performed in the afternoon. At that time decision was done to monitor observe and patent patient to be transferred to [facility] for further evaluation and intervention and treatment and possible resection of left upper lobe nodule Objective - Vital Signs Vital signs: Vital Signs Temp 97.8 F 03/14/17 04:00 Pulse 98 03/14/17 08:31 Resp 18 03/14/17 04:00 BP 102/55 03/14/17 04:00 Pulse Ox 99 03/14/17 04:00 Intake & Output 03/13/17 03/14/17 03/14/17 18:59 06:59 18:59 Intake Total 600 20 240 Output Total 200 100 Balance 400 -80 240 Weight 74.5 kg 76.9 kg Intake: IV 20 .9 20 Oral 600 240 Output: Urine 200 100 Other: Voiding Method Urinal Urinal # Voids 2 1 - Exam - Exam - Constitutional General appearance: cooperative, disheveled, mild distress - EENT Eyes: EOMI, PERRLA, normal appearance Ears: bilateral: normal - Neck Neck: normal ROM Carotids: bilateral: upstroke normal, bruit absent Thyroid: negative: normal size - Respiratory Respiratory: bilateral: diminished, rhonchi, wheezing, prolonged expiration, no significant subcu emphysema is seen, chest tube has been discontinued - Cardiovascular Rhythm: irregularly irregular Heart sounds: normal: S1, S2 - Gastrointestinal General gastrointestinal: decreased bowel sounds, normal bowel sounds, soft - Integumentary Integumentary: normal, normal turgor - Neurologic Neurologic: CNII-XII intact - Musculoskeletal Musculoskeletal: gait normal, generalized weakness, strength equal bilaterally - Psychiatric Psychiatric: A&O x's 3, appropriate affect, intact judgment & insight - Labs CBC & Chem 7: 03/13/17 05:35 03/13/17 05:36 Labs: Abnormal Lab Results - Last 24 Hours (Table) 03/13/17 03/13/17 03/13/17 Range/Units 11:31 16:35 20:41 POC Glucose (mg/dL) 111 H 126 H 100 H (75-99) mg/dL Assessment and Plan Plan: Assessment Bilateral pneumonia with hemoptysis Left upper lobe nodule Left-sided iatrogenic tension pneumothorax status post new 28-Maori left-sided chest tube and removal of old pigtail catheter Severe COPD with chronic hypoxic respiratory failure Chronic atrial fibrillation Status post VATS procedure Plan Plan is to monitor observe patient in selective care, thoracic surgery consultation, patient's is status post VATS procedure for left upper lobe nodule resection with VATS resection. We will maintain patient on broad- spectrum antibiotics DVT and peptic ulcer disease prophylaxis for anxiety on on Xanax maintain patient on peptic ulcer disease prophylaxis continue Lovenox for chronic atrial fibrillation for now. we'll do a bedside spirometry patient is being maintained on subcu Lovenox will continue the antibiotics breathing treatment, steroids have been switched to oral. patient will be kept on peptic ulcer disease prophylaxis and supportive care care plan discussed with the nursing staff at length. Increase activity as tolerated. Continue pulmonary hygiene and supportive care. Supplemental oxygen to maintain oxygen saturations greater than 92%. Further recommendations pending. I performed an examination of the patient and discussed their management with the nurse practitioner. I have reviewed the nurse practitioner's note and agree with the documented findings and plan of care.
[2017-03-14 11:34] LABS: Glucose,Whole Blood 119 mg/dL (75-99)
[2017-03-14 11:58] LABS: Glucose,Whole Blood 202 mg/dL (75-99)
[2017-03-14] MEDS: AZITHROMYCIN 500 MG TAB PO SCH (12:20)
[2017-03-14] MEDS: METOPROLOL SUCCINATE (ER) 25 MG TAB.ER.24H PO SCH (12:20)
--- NOTE | 2017-03-14 13:31 | P.PN ---
Subjective Patient was admitted for iatrogenic tension pneumothorax, left upper lobe mass, bilateral pneumonia, chronic hypoxic respiratory failure, severe COPD andemphysema, hemoptysis Agent is still a bit short of breath, denied any short of breath denied any abdominal pain denied any nausea vomiting. Continuing antibiotics close clinical monitoring. And PT and OT evaluation today Objective - Vital Signs Vital signs: Vital Signs Temp 97.8 F 03/14/17 04:00 Pulse 94 03/14/17 13:02 Resp 16 03/14/17 12:50 BP 99/56 03/14/17 12:00 Pulse Ox 93 L 03/14/17 12:00 Intake & Output 03/13/17 03/14/17 03/14/17 18:59 06:59 18:59 Intake Total 600 20 240 Output Total 200 100 Balance 400 -80 240 Weight 74.5 kg 76.9 kg Intake: IV 20 .9 20 Oral 600 240 Output: Urine 200 100 Other: Voiding Method Urinal Urinal Urinal # Voids 2 1 - Exam Patient is lying in the bed comfortably, no acute distress, awake alert and oriented.. HEENT: Normocephalic. Neck is supple. Pupils reactive. Nostrils clear. Oral cavity is moist. Ears reveal no drainage. Neck reveals no JVD, carotid bruits, or thyromegaly. CHEST EXAMINATION: Trachea is central. Symmetrical expansion. Left-sided basilar crackles and decreased breath sounds. CARDIAC: Normal S1, S2 with no gallops. No murmurs ABDOMEN: Soft. Bowel sounds normal. No organomegaly. No abdominal bruits. Extremities reveal no edema. No clubbing or cyanosis Neurologically awake, alert, oriented x3 with well-coordinated movements. Skin: no rash or skin lesions Musculoskeletal: no joint swelling or deformity. - Labs CBC & Chem 7: 03/13/17 05:35 03/13/17 05:36 Labs: Abnormal Lab Results - Last 24 Hours (Table) 03/02/17 03/13/17 03/13/17 Range/Units 20:56 16:35 20:41 POC Glucose (mg/dL) 202 H 126 H 100 H (75-99) mg/dL 03/14/17 Range/Units 11:30 POC Glucose (mg/dL) 119 H (75-99) mg/dL Assessment and Plan Plan: Left-sided pneumothorax followed by biopsy. Iatrogenic: Chest tube was removed patient is fairly doing well but does have still with of wheezing and decreased air entry into bilateral lung love. Bilateral pneumonia: Patient is on ceftriaxone and azithromycin. Macrocytic anemia Hypovolemic hyponatremia did improve Severe COPD with acute exacerbation Chronic hypoxic respiratory failure History of colon cancer status post resection History of OR GERD Chronic atrial fibrillation. 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 DVT prophylaxis Left upper lobe lung nodule status post CT-guided biopsy initially. Biopsy report inconclusive at the time. Pleural fluid cytopathology showed no malignant cells. Patient had wedge resection of the tumor left upper lobe lung on 03/10/2017. Biopsy report pending. So far all the pathology reports did not show any cancerous pathology. But will have to get medical records from [facility] regarding the biopsy of the lung that was done in [facility]
--- NOTE | 2017-03-14 13:52 | FL ---
EXAMINATION TYPE: FL barium swallow w video DATE OF EXAM: 03/14/2017 MODIFIED SWALLOW / DEGLUTITION STUDY CLINICAL HISTORY: Rule out silent aspiration, history of COPD TECHNIQUE: Deglutition study is performed utilizing thin liquid barium, honey and nectar thick liqui d barium, barium thick applesauce, and barium coated cracker. A total of 1 minute 34 seconds of fluor oscopic time was utilized during procedure. 0 spot images are saved to PACS station. Approximately 12 cine sequences were acquired. COMPARISON: None. FINDINGS: The oral and pharyngeal phases show satisfactory initiation and propagation with all modali ties tested. Normal mastication is seen with solid modalities tested. There is no evidence of penet ration or aspiration with any modality tested. No significant pharyngeal residue was appreciated. St raightening of cervical spine is present. IMPRESSION: No penetration or aspiration observed. Please refer to speech therapist notes for further details if necessary.
[2017-03-14 16:27] LABS: Glucose,Whole Blood 117 mg/dL (75-99)
[2017-03-14 21:01] LABS: Glucose,Whole Blood 120 mg/dL (75-99)
[2017-03-15] MEDS: IPRATROPIUM-ALBUTEROL 3 ML NEB INHALATION PRN (03:16)
[2017-03-15] MEDS: HYDROcodone/APAP 7.5-325MG 1 EACH TAB PO PRN ×3 (03:26→22:19)
[2017-03-15] MEDS: ALPRAZolam 0.25 MG TAB PO PRN (03:46)
[2017-03-15] MEDS: KETOROLAC 30 MG/ML 1 ML VIAL IVP SCH (05:31)
[2017-03-15 06:02] LABS: Glucose,Whole Blood 93 mg/dL (75-99)
[2017-03-15] MEDS: INSULIN LISPRO (humaLOG) 300 UNIT/3 ML VIAL SQ SCH ×4 (06:05→21:06)
[2017-03-15 07:26] LABS: Anisocytosis Moderate; CH 34.9; CHCM 30.6; HCT 26.6 % (39.0-53.0); HGB 8.2 gm/dL (13.0-17.5); Hypochromasia Marked; MCH 34.9 pg (25.0-35.0); MCHC 30.7 g/dL (31.0-37.0); MCV 113.7 fL (80.0-100.0); Macrocytosis Marked; Mean Platelet Volume 8.8; Poikilocytosis Slight; RBC 2.34 m/uL (4.30-5.90); RDW 21.2 % (11.5-15.5); WBC 4.4 k/uL (3.8-10.6)
[2017-03-15 07:49] LABS: Anion Gap 10 mmol/L; Blood Urea Nitrogen 29 mg/dL (9-20); Calcium 8.4 mg/dL (8.4-10.2); Carbon Dioxide 21 mmol/L (22-30); Chloride 97 mmol/L (98-107); Glucose 69 mg/dL (74-99); Non-African American GFR(MDRD) >60 (>60 ml/min/1.73 sqM); Potassium 5.3 mmol/L (3.5-5.1); Sodium 128 mmol/L (137-145)
[2017-03-15] MEDS: BUDESONIDE 0.5 MG/2 ML NEBU INHALATION SCH ×2 (07:55→20:11)
[2017-03-15] MEDS: IPRATROPIUM-ALBUTEROL 3 ML NEB IH SCH ×4 (07:55→20:11)
[2017-03-15] MEDS: AZITHROMYCIN 500 MG TAB PO SCH (09:02)
[2017-03-15] MEDS: carBAMazepine 400 MG TAB.ER.12H PO SCH ×2 (09:02→21:07)
[2017-03-15] MEDS: TAMSULOSIN 0.4 MG CAP.ER.24H PO SCH (09:02)
[2017-03-15] MEDS: ENOXAPARIN 40 MG/0.4 ML SYRINGE SQ SCH ×2 (09:03→21:07)
[2017-03-15] MEDS: DIVALPROEX 500 MG TABLET.DR PO SCH ×2 (09:03→21:07)
[2017-03-15] MEDS: METOPROLOL SUCCINATE (ER) 25 MG TAB.ER.24H PO SCH (09:04)
[2017-03-15] MEDS: predniSONE 20 MG TAB PO SCH (09:04)
[2017-03-15] MEDS: FAMOTIDINE 20 MG TAB PO SCH ×2 (09:04→21:07)
--- NOTE | 2017-03-15 10:52 | P.PN ---
Subjective Principal diagnosis: Tension pneumothorax, left upper lobe mass, bilateral pneumonia, chronic hypoxic respiratory failure, severe COPD andemphysema, hemoptysis 03/15/17- patient is being evaluated and examined and seen today on rounds. Apparently the patient was having some progressive shortness of breath yesterday throughout the day and into the evening however he states it has stable this morning. Patient is encouraged to participate in PT and OT. Chest tube site remains clean dry and intact. Patient did undergo a barium swallow, yesterday which was negative. Upon evaluation the patient is resting up in bed on 3 L of supplemental oxygen. States he does have a congested cough. He is afebrile, no further complaints. 03/14/17- patient is being seen in evaluated and examined today on rounds. Patient did have chest tube removal yesterday. Dressing is clean dry and intact. Chest x-ray has been reviewed and shows no sizable pneumothorax, spiculated mass in the left upper lobe, pulmonary fibrosis and changes of COPD. Patient encouraged to use incentive spirometer and increase activity as tolerated. He is afebrile, no overnight events. 03/13/17- patient is being seen examined and evaluated today on rounds. Patient has under his VATS resection on Monday. His breathing has improved. He has no hemoptysis. Chest tube in place and is currently clamped. Chest x-ray from this morning does show a stable interstitial changes with findings suggestive pulmonary fibrosis. Superimposed acute interstitial process is not excluded. Approximate 10% left-sided pneumothorax. Stable spiculated mass left upper lobe. On examination the patient's resting up in bed on room air he is afebrile no further complaints. 03/12/2017 patient seen and evaluated examined during the rounds he is having issues associated with cough congestion which is slightly better continued to have a pain at surgical site but is manageable with medication, he has problem with urinary retention requiring straight cath and initiation of Flomax which has been started and is being monitored and observed that regard. He has been advised to continue deep breathing exercises incentive spirometry overall is slightly improved compared to prior exam no more hemoptysis seen 03/11/2017, patient seen and evaluated examined in the selective care patient has successfully underwent wedge resection of the left upper lobe firm nodule which is about 2 cm in size operative reports and the primary data has been reviewed and grossly negative margins were noted the nodules been sent for histopathology final results are pending. Patient is complaining of pleuritic chest pain in the left side which is stable no pain medicine seems to be effective there is a pleural VAC is present on the right side and no air leak is present about 350 mL of dark pleural fluid has been accumulated. Patient remains on [place] antibiotics does feel some congestion and cough however no significant sputum production is seen he has baseline shortness of breath which is overall stable patient has been consult at length about importance to using IES continued to do deep breathing exercise continue pain medicine maintain patient on DVT and peptic ulcer disease prophylaxis 03/10/17- seen and examined and evaluated today on the sixth floor. Upon examination the patient is resting up in bed on room air with supplemental oxygen laying next to him. He states that he uses 2 L of supplemental oxygen off and on for comfort throughout the day when he gets winded. Patient states he does get short of breath and winded with activity and exertion. Oxygen saturations have been maintained in the mid to high 90s. Patient has been nothing by mouth since midnight for VATS procedure to be done today by cardiothoracic surgery. All labs and reports have been reviewed. 03/09/17- patient is being seen examined and evaluated today on the sixth floor. Upon examination the patient is resting up in bed on 2 L of supplemental oxygen via nasal cannula, oxygen saturations in the high 90s. Chest tube site remains clean dry and intact. Patient is being scheduled to undergo VATS procedure tomorrow with cardiothoracic surgery. He is afebrile, no overnight events. 03/08/17 patient is being seen examined and evaluated today on the sixth floor. His chest tube was removed yesterday. Dressing is clean dry and intact. Chest x-ray was reviewed from this morning does show that the left-sided chest tube has been removed without evidence for recurrent pneumothorax. Small amount of subcutaneous emphysema seen along the left chest wall. Improving left basilar infiltrate and/or atelectasis. Stable chronic density in the right upper lobe. Upon examination patient sitting up in bed on room air. He has been using supplemental oxygen on and off per the nursing staff for comfort. His oxygen saturations have remained in the mid 90s. He is afebrile, no overnight events. Patient is scheduled to go for a left video-assisted thoracoscopic wedge biopsy on Monday. 03/07/2017, patient seen and evaluated exam and on 6 floor he is breathing comfortably less short of breath his cuff congestion has improved he is not coughing purulent sputum anymore hemoptysis has resolved his chest tube has been placed on water seal a chest x-ray performed right in front of me which I have reviewed it no pneumothorax is seen on water seal. Patient is afebrile with the FiO2 is down to 2 L now and sats are 98% hemodynamic status stable except atrial fibrillation with controlled ventricular response on telemetry, the biopsy results are nondiagnostic awaiting further recommendation from cardiothoracic surgery in the meantime we'll taper down the steroids further and hopefully discontinue and next 24 hours 03/06/2017, patient seen and evaluated examined care plan discussed with the nursing staff at length biopsy results are obtained from the patient on [facility] it's a nondiagnostic tissue. Patient is breathing definitely better he still have left-sided chest tube no a leak is present subcu continue him emphysema which was seen previously is almost resolved no evidence of active hemoptysis seen patient remains in atrial fibrillation with controlled ventricular response she is on subcu Lovenox is also on broad-spectrum antibiotics and oral prednisone and seems to be tolerating very well, we'll start tapering down the steroids lowered down to 30 mg daily continue other antibiotics, awaiting further recommendation from thoracic surgery patient may very well and been getting the VATS procedure with wedge resection of left upper lobe nodule and and mediastinoscopy 03/05/17, patient seen and evaluated examined today some level of pain is present on the left thoracic wall subcu emphysema which was noted previously has improved significantly patient does have intermittent cough and chest tightness proceeded he has improved though his been getting [place] and as needed Dilaudid for adequate pain control. His chest x-ray done today failed to reveal significant pneumothorax a questionable left apical pneumothorax cannot be excluded along with some interstitial edema and basal atelectasis likely related to poor respiratory effort is still waiting for the biopsy results from [facility] with further recommendations pending cardiothoracic surgery is following as well, no more evidence of any hemoptysis is been seen heart rate is better under control but however rhythm remains atrial fibrillation with controlled ventricular response 03/04/2017, patient seen and evaluated examined in ICU he is awake and alert breathing relatively comfortably would get anxious and agitated events from yesterday and last night has been noted, patient to have left left tension pneumothorax as the prior pigtail rest tube was plugged requiring emergent placement off a new 28-St Helenian chest tube by me in a stable position. Able to evacuate the tension pneumothorax no more bubbling was seen however patient was trying to get up late last night and to use the urinal disconnected himself over the chest tube developed shortness of breath later on the tube has been reconnected by nurse staff had no more air leak is seen in the pleural VAC. Patient has episodes of intermittent anxiety we will start him on low-dose Xanax patient had low magnesium which is being repleted he is on diet tolerated well patient has been evaluated by Dr. Persaud from thoracic surgery awaiting biopsy results with further interventions pending. His chest x-ray from earlier this morning reviewed no pneumothorax is seen chest tube was stable the right perihilar pneumonia and left lower lobe pneumonia not much change overall stable on antibiotics His labs from today's reviewed borderline hyponatremia noted he is anemic with hemoglobin of 9.6 we'll monitor observe closely Critical care time spent 35 minutes Mr. Davila is a 67-year-old male with history of severe COPD emphysema and chronic persistent asthma patient also has history of chronic atrial fibrillation and has been attempted on anticoagulants but couldn't tolerate it because of the GI bleeding has been off of blood thinners patient is somewhat unreliable in terms of follow-up he does have a history of prior pneumonia and right-sided nodule however that did resolve though. Patient was sent from the primary care provider to my office with ongoing hemoptysis and also found to have abnormal chest x-ray and CAT scan in fact patient had a PET scan as well which revealed positive uptake in the left upper lobe nodule which was new. Patient also found to have a left upper lobe and right lower lobe infiltrate suggestive of pneumonia given the severe respiratory status patient was considered not to be a candidate for bronchoscopy and biopsies options were discussed with him to optimize therapy and decision was done to admit the patient into the hospital to treat the pneumonia and consideration of biopsy and along the same time. Patient did respond well with the antibiotics with improvement in respiratory status and hemoptysis however interventional radiology was consulted for CT- guided biopsy of left upper lobe nodule they initially attempted a small lymph node on the neck in cervical area which was nondiagnostic followed by CT-guided biopsy of left upper lobe nodule. Patient did have left the pneumothorax which was progressive and eventually giving appearance of a tension pneumothorax requiring emergent placement of a small bore chest tube by interventional radiology the pneumothorax resolved only a small residual 5% pneumothorax was seen subsequent x-ray performed in the afternoon. At that time decision was done to monitor observe and patent patient to be transferred to [facility] for further evaluation and intervention and treatment and possible resection of left upper lobe nodule Objective - Vital Signs Vital signs: Vital Signs Temp 98.3 F 03/15/17 08:00 Pulse 86 03/15/17 08:11 Resp 14 03/15/17 08:00 BP 101/59 03/15/17 08:00 Pulse Ox 92 L 03/15/17 08:00 Intake & Output 03/14/17 03/15/17 03/15/17 18:59 06:59 18:59 Intake Total 480 22 Balance 480 22 Weight 76.6 kg 76.6 kg Intake: IV 22 .9 20 Zofran 2 Oral 480 Other: Voiding Method Urinal Urinal Urinal - Exam - Exam - Constitutional General appearance: cooperative, disheveled, mild distress - EENT Eyes: EOMI, PERRLA, normal appearance Ears: bilateral: normal - Neck Neck: normal ROM Carotids: bilateral: upstroke normal, bruit absent Thyroid: negative: normal size - Respiratory Respiratory: bilateral: diminished, rhonchi, wheezing, prolonged expiration, no significant subcu emphysema is seen, chest tube has been discontinued - Cardiovascular Rhythm: irregularly irregular Heart sounds: normal: S1, S2 - Gastrointestinal General gastrointestinal: decreased bowel sounds, normal bowel sounds, soft - Integumentary Integumentary: normal, normal turgor - Neurologic Neurologic: CNII-XII intact - Musculoskeletal Musculoskeletal: gait normal, generalized weakness, strength equal bilaterally - Psychiatric Psychiatric: A&O x's 3, appropriate affect, intact judgment & insight - Labs CBC & Chem 7: 03/15/17 05:29 03/15/17 05:29 Labs: Abnormal Lab Results - Last 24 Hours (Table) 03/02/17 03/14/17 03/14/17 Range/Units 20:56 11:30 16:24 RBC (4.30-5.90) m/uL Hgb (13.0-17.5) gm/dL Hct (39.0-53.0) % MCV (80.0-100.0) fL MCHC (31.0-37.0) g/dL RDW (11.5-15.5) % Sodium (137-145) mmol/L Potassium (3.5-5.1) mmol/L Chloride (98-107) mmol/L Carbon Dioxide (22-30) mmol/L BUN (9-20) mg/dL Glucose (74-99) mg/dL POC Glucose (mg/dL) 202 H 119 H 117 H (75-99) mg/dL 03/14/17 03/15/17 03/15/17 Range/Units 20:57 05:29 05:29 RBC 2.34 L (4.30-5.90) m/uL Hgb 8.2 L (13.0-17.5) gm/dL Hct 26.6 L (39.0-53.0) % MCV 113.7 H (80.0-100.0) fL MCHC 30.7 L (31.0-37.0) g/dL RDW 21.2 H (11.5-15.5) % Sodium 128 L (137-145) mmol/L Potassium 5.3 H (3.5-5.1) mmol/L Chloride 97 L (98-107) mmol/L Carbon Dioxide 21 L (22-30) mmol/L BUN 29 H (9-20) mg/dL Glucose 69 L (74-99) mg/dL POC Glucose (mg/dL) 120 H (75-99) mg/dL Assessment and Plan Plan: Assessment Bilateral pneumonia with hemoptysis Left upper lobe nodule Left-sided iatrogenic tension pneumothorax status post new 28-St [place]ian left-sided chest tube and removal of old pigtail catheter Severe COPD with chronic hypoxic respiratory failure Chronic atrial fibrillation Status post VATS procedure Plan Plan is to monitor observe patient in selective care, thoracic surgery consultation, patient's is status post VATS procedure for left upper lobe nodule resection with VATS resection. Repeat chest x-ray tomorrow. We will maintain patient on broad-spectrum antibiotics DVT and peptic ulcer disease prophylaxis for anxiety on on Xanax maintain patient on peptic ulcer disease prophylaxis continue Lovenox for chronic atrial fibrillation for now. we'll do a bedside spirometry patient is being maintained on subcu Lovenox will continue the antibiotics breathing treatment, steroids have been switched to oral. patient will be kept on peptic ulcer disease prophylaxis and supportive care care plan discussed with the nursing staff at length. Increase activity as tolerated. Continue pulmonary hygiene and supportive care. Supplemental oxygen to maintain oxygen saturations greater than 92%. Further recommendations pending. I performed an examination of the patient and discussed their management with the nurse practitioner. I have reviewed the nurse practitioner's note and agree with the documented findings and plan of care.
[2017-03-15 12:07] LABS: Glucose,Whole Blood 116 mg/dL (75-99)
--- NOTE | 2017-03-15 13:06 | P.PN ---
Subjective Patient was admitted for iatrogenic tension pneumothorax, left upper lobe mass, bilateral pneumonia, chronic hypoxic respiratory failure, severe COPD andemphysema, hemoptysis. 03/15/2017 Patient is doing much better today but the his sodium has gone down I am not sure about the exact etiology of low-sodium probably labyrinthine will repeat the sodium tomorrow we'll check with the [facility] thoracic surgery regarding further recommendations possibly of discharge tomorrow to subacute rehabitation. Agent is still a bit short of breath, denied any short of breath denied any abdominal pain denied any nausea vomiting. Continuing antibiotics close clinical monitoring. And PT and OT evaluation today Objective - Vital Signs Vital signs: Vital Signs Temp 98.3 F 03/15/17 08:00 Pulse 87 03/15/17 11:45 Resp 14 03/15/17 08:00 BP 101/59 03/15/17 08:00 Pulse Ox 92 L 03/15/17 08:00 Intake & Output 03/14/17 03/15/17 03/15/17 18:59 06:59 18:59 Intake Total 480 22 Balance 480 22 Weight 76.6 kg 76.6 kg Intake: IV 22 .9 20 Zofran 2 Oral 480 Other: Voiding Method Urinal Urinal Urinal - Exam Patient is lying in the bed comfortably, no acute distress, awake alert and oriented.. HEENT: Normocephalic. Neck is supple. Pupils reactive. Nostrils clear. Oral cavity is moist. Ears reveal no drainage. Neck reveals no JVD, carotid bruits, or thyromegaly. CHEST EXAMINATION: Trachea is central. Symmetrical expansion. Bi- basilar crackles and decreased breath sounds. CARDIAC: Normal S1, S2 with no gallops. No murmurs ABDOMEN: Soft. Bowel sounds normal. No organomegaly. No abdominal bruits. Extremities reveal no edema. No clubbing or cyanosis Neurologically awake, alert, oriented x3 with well-coordinated movements. Skin: no rash or skin lesions Musculoskeletal: no joint swelling or deformity. - Labs CBC & Chem 7: 03/15/17 05:29 03/15/17 05:29 Labs: Abnormal Lab Results - Last 24 Hours (Table) 03/14/17 03/14/17 03/15/17 Range/Units 16:24 20:57 05:29 RBC 2.34 L (4.30-5.90) m/uL Hgb 8.2 L (13.0-17.5) gm/dL Hct 26.6 L (39.0-53.0) % MCV 113.7 H (80.0-100.0) fL MCHC 30.7 L (31.0-37.0) g/dL RDW 21.2 H (11.5-15.5) % Sodium (137-145) mmol/L Potassium (3.5-5.1) mmol/L Chloride (98-107) mmol/L Carbon Dioxide (22-30) mmol/L BUN (9-20) mg/dL Glucose (74-99) mg/dL POC Glucose (mg/dL) 117 H 120 H (75-99) mg/dL 03/15/17 03/15/17 Range/Units 05:29 11:55 RBC (4.30-5.90) m/uL Hgb (13.0-17.5) gm/dL Hct (39.0-53.0) % MCV (80.0-100.0) fL MCHC (31.0-37.0) g/dL RDW (11.5-15.5) % Sodium 128 L (137-145) mmol/L Potassium 5.3 H (3.5-5.1) mmol/L Chloride 97 L (98-107) mmol/L Carbon Dioxide 21 L (22-30) mmol/L BUN 29 H (9-20) mg/dL Glucose 69 L (74-99) mg/dL POC Glucose (mg/dL) 116 H (75-99) mg/dL Assessment and Plan Plan: Left-sided pneumothorax followed by biopsy. Iatrogenic: Chest tube was removed patient is fairly doing well but does have still with of wheezing and decreased air entry into bilateral lung love. Bilateral pneumonia: Patient is on ceftriaxone and azithromycin. Macrocytic anemia Hypovolemic hyponatremia did improve Severe COPD with acute exacerbation Chronic hypoxic respiratory failure History of colon cancer status post resection History of [place] GERD Chronic atrial fibrillation. 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 DVT prophylaxis Left upper lobe lung nodule status post CT-guided biopsy initially. Biopsy report inconclusive at the time. Pleural fluid cytopathology showed no malignant cells. Patient had wedge resection of the tumor left upper lobe lung on 03/10/2017. Biopsy report pending. So far all the pathology reports did not show any cancerous pathology.
[2017-03-15 16:50] LABS: Glucose,Whole Blood 122 mg/dL (75-99)
[2017-03-15 20:51] LABS: Glucose,Whole Blood 92 mg/dL (75-99)
[2017-03-16] MEDS: ALPRAZolam 0.25 MG TAB PO PRN (00:17)
[2017-03-16 06:05] LABS: Glucose,Whole Blood 79 mg/dL (75-99)
[2017-03-16] MEDS: INSULIN LISPRO (humaLOG) 300 UNIT/3 ML VIAL SQ SCH ×4 (06:17→20:14)
[2017-03-16 06:27] LABS: Anisocytosis Moderate; CH 34.9; CHCM 31.1; HCT 24.7 % (39.0-53.0); HDW 3.71; HGB 7.5 gm/dL (13.0-17.5); Hypochromasia Marked; MCH 34.1 pg (25.0-35.0); MCHC 30.5 g/dL (31.0-37.0); MCV 111.8 fL (80.0-100.0); Mean Platelet Volume 8.5; Poikilocytosis Slight; RBC 2.21 m/uL (4.30-5.90); RDW 21.2 % (11.5-15.5); WBC 3.8 k/uL (3.8-10.6)
[2017-03-16 06:34] LABS: Anion Gap 7 mmol/L; Blood Urea Nitrogen 22 mg/dL (9-20); Calcium 8.3 mg/dL (8.4-10.2); Carbon Dioxide 22 mmol/L (22-30); Chloride 98 mmol/L (98-107); Glucose 69 mg/dL (74-99); Non-African American GFR(MDRD) >60 (>60 ml/min/1.73 sqM); Potassium 4.7 mmol/L (3.5-5.1); Sodium 127 mmol/L (137-145)
[2017-03-16 06:34] LABS: Macrocytosis Marked
[2017-03-16] MEDS: IPRATROPIUM-ALBUTEROL 3 ML NEB IH SCH ×4 (07:45→20:55)
[2017-03-16] MEDS: BUDESONIDE 0.5 MG/2 ML NEBU INHALATION SCH ×2 (07:45→20:55)
--- NOTE | 2017-03-16 08:37 | XR ---
EXAMINATION TYPE: XR chest 2V DATE OF EXAM: 03/16/2017 COMPARISON: NONE TECHNIQUE: PA and lateral views submitted. HISTORY: Chest tube removal FINDINGS: Diffuse coarsened interstitial pattern seen with subsegmental consolidation and pleural based thicken ing bilaterally. Question of a spiculated density left upper lobe. No sizable pneumothorax. Contrast within the abdomen noted. Heart size stable. Atherosclerotic change aorta. IMPRESSION: 1. Chronic interstitial pulmonary fibrosis and COPD with no sizable pneumothorax. 2. Small left effusion and pleural based thickening along the lateral chest wall. 3. Cannot exclude a spiculated mass left upper lobe.
[2017-03-16] MEDS: METOPROLOL SUCCINATE (ER) 25 MG TAB.ER.24H PO SCH (09:27)
[2017-03-16] MEDS: ENOXAPARIN 40 MG/0.4 ML SYRINGE SQ SCH ×2 (09:27→20:07)
[2017-03-16] MEDS: AZITHROMYCIN 500 MG TAB PO SCH (09:28)
[2017-03-16] MEDS: FAMOTIDINE 20 MG TAB PO SCH ×2 (09:28→20:06)
[2017-03-16] MEDS: carBAMazepine 400 MG TAB.ER.12H PO SCH ×2 (09:28→20:06)
[2017-03-16] MEDS: TAMSULOSIN 0.4 MG CAP.ER.24H PO SCH (09:28)
[2017-03-16] MEDS: HYDROcodone/APAP 7.5-325MG 1 EACH TAB PO PRN ×3 (09:28→22:59)
[2017-03-16] MEDS: predniSONE 20 MG TAB PO SCH (09:28)
[2017-03-16] MEDS: DIVALPROEX 500 MG TABLET.DR PO SCH ×2 (09:30→20:06)
--- NOTE | 2017-03-16 10:15 | P.PN ---
Subjective Principal diagnosis: Tension pneumothorax, left upper lobe mass, bilateral pneumonia, chronic hypoxic respiratory failure, severe COPD andemphysema, hemoptysis 03/16/17- patient is being evaluated and examined today on rounds. Patient is resting in bed on 3 L of supplemental oxygen, he is quite fatigued. All labs and reports were reviewed. His hemoglobin is noted to drop down to 7.5 today and his sodium is 127, potassium 4.7. Patient has been coughing up blood- tinged sputum he feels very congested. Chest x-ray from today does show chronic interstitial pulmonary fibrosis and COPD with no sizable pneumothorax, small left effusion and pleural based thickening along the lateral chest wall as well as a spiculated mass in the left upper lobe. The patient is on scheduled Lovenox. 03/15/17- patient is being evaluated and examined and seen today on rounds. Apparently the patient was having some progressive shortness of breath yesterday throughout the day and into the evening however he states it has stable this morning. Patient is encouraged to participate in PT and OT. Chest tube site remains clean dry and intact. Patient did undergo a barium swallow, yesterday which was negative. Upon evaluation the patient is resting up in bed on 3 L of supplemental oxygen. States he does have a congested cough. He is afebrile, no further complaints. 03/14/17- patient is being seen in evaluated and examined today on rounds. Patient did have chest tube removal yesterday. Dressing is clean dry and intact. Chest x-ray has been reviewed and shows no sizable pneumothorax, spiculated mass in the left upper lobe, pulmonary fibrosis and changes of COPD. Patient encouraged to use incentive spirometer and increase activity as tolerated. He is afebrile, no overnight events. 03/13/17- patient is being seen examined and evaluated today on rounds. Patient has under his VATS resection on Monday. His breathing has improved. He has no hemoptysis. Chest tube in place and is currently clamped. Chest x-ray from this morning does show a stable interstitial changes with findings suggestive pulmonary fibrosis. Superimposed acute interstitial process is not excluded. Approximate 10% left-sided pneumothorax. Stable spiculated mass left upper lobe. On examination the patient's resting up in bed on room air he is afebrile no further complaints. 03/12/2017 patient seen and evaluated examined during the rounds he is having issues associated with cough congestion which is slightly better continued to have a pain at surgical site but is manageable with medication, he has problem with urinary retention requiring straight cath and initiation of Flomax which has been started and is being monitored and observed that regard. He has been advised to continue deep breathing exercises incentive spirometry overall is slightly improved compared to prior exam no more hemoptysis seen 03/11/2017, patient seen and evaluated examined in the [facility] care patient has successfully underwent wedge resection of the left upper lobe firm nodule which is about 2 cm in size operative reports and the primary data has been reviewed and grossly negative margins were noted the nodules been sent for histopathology final results are pending. Patient is complaining of pleuritic chest pain in the left side which is stable no pain medicine seems to be effective there is a pleural VAC is present on the right side and no air leak is present about 350 mL of dark pleural fluid has been accumulated. Patient remains on [place] antibiotics does feel some congestion and cough however no significant sputum production is seen he has baseline shortness of breath which is overall stable patient has been consult at length about importance to using IES continued to do deep breathing exercise continue pain medicine maintain patient on DVT and peptic ulcer disease prophylaxis 03/10/17- seen and examined and evaluated today on the sixth floor. Upon examination the patient is resting up in bed on room air with supplemental oxygen laying next to him. He states that he uses 2 L of supplemental oxygen off and on for comfort throughout the day when he gets winded. Patient states he does get short of breath and winded with activity and exertion. Oxygen saturations have been maintained in the mid to high 90s. Patient has been nothing by mouth since midnight for VATS procedure to be done today by cardiothoracic surgery. All labs and reports have been reviewed. 03/09/17- patient is being seen examined and evaluated today on the sixth floor. Upon examination the patient is resting up in bed on 2 L of supplemental oxygen via nasal cannula, oxygen saturations in the high 90s. Chest tube site remains clean dry and intact. Patient is being scheduled to undergo VATS procedure tomorrow with cardiothoracic surgery. He is afebrile, no overnight events. 03/08/17 patient is being seen examined and evaluated today on the sixth floor. His chest tube was removed yesterday. Dressing is clean dry and intact. Chest x-ray was reviewed from this morning does show that the left-sided chest tube has been removed without evidence for recurrent pneumothorax. Small amount of subcutaneous emphysema seen along the left chest wall. Improving left basilar infiltrate and/or atelectasis. Stable chronic density in the right upper lobe. Upon examination patient sitting up in bed on room air. He has been using supplemental oxygen on and off per the nursing staff for comfort. His oxygen saturations have remained in the mid 90s. He is afebrile, no overnight events. Patient is scheduled to go for a left video-assisted thoracoscopic wedge biopsy on Monday. 03/07/2017, patient seen and evaluated exam and on 6 floor he is breathing comfortably less short of breath his cuff congestion has improved he is not coughing purulent sputum anymore hemoptysis has resolved his chest tube has been placed on water seal a chest x-ray performed right in front of me which I have reviewed it no pneumothorax is seen on water seal. Patient is afebrile with the FiO2 is down to 2 L now and sats are 98% hemodynamic status stable except atrial fibrillation with controlled ventricular response on telemetry, the biopsy results are nondiagnostic awaiting further recommendation from cardiothoracic surgery in the meantime we'll taper down the steroids further and hopefully discontinue and next 24 hours 03/06/2017, patient seen and evaluated examined care plan discussed with the nursing staff at length biopsy results are obtained [facility]'s a nondiagnostic tissue. Patient is breathing definitely better he still have left-sided chest tube no a leak is present subcu continue him emphysema which was seen previously is almost resolved no evidence of active hemoptysis seen patient remains in atrial fibrillation with controlled ventricular response she is on subcu Lovenox is also on broad-spectrum antibiotics and oral prednisone and seems to be tolerating very well, we'll start tapering down the steroids lowered down to 30 mg daily continue other antibiotics, awaiting further recommendation from thoracic surgery patient may very well and been getting the VATS procedure with wedge resection of left upper lobe nodule and and mediastinoscopy 03/05/17, patient seen and evaluated examined today some level of pain is present on the left thoracic wall subcu emphysema which was noted previously has improved significantly patient does have intermittent cough and chest tightness proceeded he has improved though his been getting [place] and as needed Dilaudid for adequate pain control. His chest x-ray done today failed to reveal significant pneumothorax a questionable left apical pneumothorax cannot be excluded along with some interstitial edema and basal atelectasis likely related to poor respiratory effort is still waiting for the biopsy results from [facility] with further recommendations pending cardiothoracic surgery is following as well, no more evidence of any hemoptysis is been seen heart rate is better under control but however rhythm remains atrial fibrillation with controlled ventricular response 03/04/2017, patient seen and evaluated examined in ICU he is awake and alert breathing relatively comfortably would get anxious and agitated events from yesterday and last night has been noted, patient to have left left tension pneumothorax as the prior pigtail rest tube was plugged requiring emergent placement off a new 28-Swedish chest tube by me in a stable position. Able to evacuate the tension pneumothorax no more bubbling was seen however patient was trying to get up late last night and to use the urinal disconnected himself over the chest tube developed shortness of breath later on the tube has been reconnected by nurse staff had no more air leak is seen in the pleural VAC. Patient has episodes of intermittent anxiety we will start him on low-dose Xanax patient had low magnesium which is being repleted he is on diet tolerated well patient has been evaluated by Dr. Persaud from thoracic surgery awaiting biopsy results with further interventions pending. His chest x-ray from earlier this morning reviewed no pneumothorax is seen chest tube was stable the right perihilar pneumonia and left lower lobe pneumonia not much change overall stable on antibiotics His labs from today's reviewed borderline hyponatremia noted he is anemic with hemoglobin of 9.6 we'll monitor observe closely Critical care time spent 35 minutes Mr. Davila is a 67-year-old male with history of severe COPD emphysema and chronic persistent asthma patient also has history of chronic atrial fibrillation and has been attempted on anticoagulants but couldn't tolerate it because of the GI bleeding has been off of blood thinners patient is somewhat unreliable in terms of follow-up he does have a history of prior pneumonia and right-sided nodule however that did resolve though. Patient was sent from the primary care provider to my office with ongoing hemoptysis and also found to have abnormal chest x-ray and CAT scan in fact patient had a PET scan as well which revealed positive uptake in the left upper lobe nodule which was new. Patient also found to have a left upper lobe and right lower lobe infiltrate suggestive of pneumonia given the severe respiratory status patient was considered not to be a candidate for bronchoscopy and biopsies options were discussed with him to optimize therapy and decision was done to admit the patient into the hospital to treat the pneumonia and consideration of biopsy and along the same time. Patient did respond well with the antibiotics with improvement in respiratory status and hemoptysis however interventional radiology was consulted for CT- guided biopsy of left upper lobe nodule they initially attempted a small lymph node on the neck in cervical area which was nondiagnostic followed by CT-guided biopsy of left upper lobe nodule. Patient did have left the pneumothorax which was progressive and eventually giving appearance of a tension pneumothorax requiring emergent placement of a small bore chest tube by interventional radiology the pneumothorax resolved only a small residual 5% pneumothorax was seen subsequent x-ray performed in the afternoon. At that time decision was done to monitor observe and patent patient to be transferred to [facility] for further evaluation and intervention and treatment and possible resection of left upper lobe nodule Objective - Vital Signs Vital signs: Vital Signs Temp 97.0 F L 03/16/17 04:00 Pulse 78 03/16/17 07:57 Resp 20 03/16/17 04:00 BP 126/65 03/16/17 04:00 Pulse Ox 94 L 03/16/17 07:47 Intake & Output 03/15/17 03/16/17 03/16/17 18:59 06:59 18:59 Intake Total 240 Output Total 1400 Balance -1400 240 Weight 76.6 kg 75.7 kg Intake: Oral 240 Output: Urine 1400 Other: Voiding Method Urinal # Voids 2 - Exam - Exam - Constitutional General appearance: cooperative, disheveled, mild distress, fatigued - EENT Eyes: EOMI, PERRLA, normal appearance Ears: bilateral: normal - Neck Neck: normal ROM Carotids: bilateral: upstroke normal, bruit absent Thyroid: negative: normal size - Respiratory Respiratory: bilateral: diminished, congested, rhonchi, wheezing, prolonged expiration, no significant subcu emphysema is seen, chest tube has been discontinued . Is clean dry and intact. - Cardiovascular Rhythm: irregularly irregular Heart sounds: normal: S1, S2 - Gastrointestinal General gastrointestinal: decreased bowel sounds, normal bowel sounds, soft - Integumentary Integumentary: normal, normal turgor - Neurologic Neurologic: CNII-XII intact - Musculoskeletal Musculoskeletal: gait normal, generalized weakness, strength equal bilaterally - Psychiatric Psychiatric: A&O x's 3, appropriate affect, intact judgment & insight - Labs CBC & Chem 7: 03/16/17 05:31 03/16/17 05:28 Labs: Abnormal Lab Results - Last 24 Hours (Table) 03/15/17 03/15/17 03/16/17 Range/Units 11:55 16:41 05:28 RBC (4.30-5.90) m/uL Hgb (13.0-17.5) gm/dL Hct (39.0-53.0) % MCV (80.0-100.0) fL MCHC (31.0-37.0) g/dL RDW (11.5-15.5) % Sodium 127 L (137-145) mmol/L BUN 22 H (9-20) mg/dL Glucose 69 L (74-99) mg/dL POC Glucose (mg/dL) 116 H 122 H (75-99) mg/dL Calcium 8.3 L (8.4-10.2) mg/dL 03/16/17 Range/Units 05:31 RBC 2.21 L (4.30-5.90) m/uL Hgb 7.5 L (13.0-17.5) gm/dL Hct 24.7 L (39.0-53.0) % MCV 111.8 H (80.0-100.0) fL MCHC 30.5 L (31.0-37.0) g/dL RDW 21.2 H (11.5-15.5) % Sodium (137-145) mmol/L BUN (9-20) mg/dL Glucose (74-99) mg/dL POC Glucose (mg/dL) (75-99) mg/dL Calcium (8.4-10.2) mg/dL Assessment and Plan Plan: Assessment Bilateral pneumonia with hemoptysis Left upper lobe nodule Left-sided iatrogenic tension pneumothorax status post new 28-Swedish left-sided chest tube and removal of old pigtail catheter Severe COPD with chronic hypoxic respiratory failure Chronic atrial fibrillation Status post VATS procedure Anemia, suspect acute blood loss Hyponatremia Plan Plan is to monitor observe patient in selective care, thoracic surgery consultation, patient's is status post VATS procedure for left upper lobe nodule resection with VATS resection. We will obtain anemia workup, we will transfuse 1 unit of packed red blood cells. We will start the patient on IV fluids 0.9 normal saline at 50 mL an hour. We will schedule the patient for bronchoscopy tomorrow morning. Patient should be nothing by mouth after midnight and we will hold the Lovenox. We will maintain patient on broad- spectrum antibiotics DVT and peptic ulcer disease prophylaxis for anxiety on on Xanax maintain patient on peptic ulcer disease prophylaxis continue Lovenox for chronic atrial fibrillation for now. we'll do a bedside spirometry patient is being maintained on subcu Lovenox will continue the antibiotics breathing treatment, steroids have been switched to oral. patient will be kept on peptic ulcer disease prophylaxis and supportive care care plan discussed with the nursing staff at length. Increase activity as tolerated. Continue pulmonary hygiene and supportive care. Supplemental oxygen to maintain oxygen saturations greater than 92%. Further recommendations pending. I performed an examination of the patient and discussed their management with the nurse practitioner. I have reviewed the nurse practitioner's note and agree with the documented findings and plan of care.
[2017-03-16 10:41] VITALS: BMI 23.9
[2017-03-16 11:03] LABS: Iron 56 ug/dL (49-181)
[2017-03-16 11:52] LABS: Vitamin B12 986 pg/mL
[2017-03-16 11:58] LABS: Glucose,Whole Blood 125 mg/dL (75-99)
[2017-03-16] MEDS: SODIUM CHLORIDE 0.9% 1,000 ML IV SCH (15:16)
[2017-03-16 15:28] LABS: Iron Saturation 28.44 (15.00-50.00)
--- NOTE | 2017-03-16 16:03 | P.PN ---
Subjective Patient was admitted for iatrogenic tension pneumothorax, left upper lobe mass, bilateral pneumonia, chronic hypoxic respiratory failure, severe COPD andemphysema, hemoptysis. 03/15/2017 Patient is doing much better today but the his sodium has gone down I am not sure about the exact etiology of low-sodium probably labyrinthine will repeat the sodium tomorrow we'll check with the [facility] thoracic surgery regarding further recommendations possibly of discharge tomorrow to subacute rehabitation. 03/16/2017 Patient had minimal hemoptysis today, patient is receiving blood transfusion ordered by pulmonary. Patient is going for repeat bronchoscopy tomorrow. denied any short of breath denied any abdominal pain denied any nausea vomiting. Continuing antibiotics close clinical monitoring. And PT and OT evaluation today Objective - Vital Signs Vital signs: Vital Signs Temp 98.5 F 03/16/17 15:35 Pulse 83 03/16/17 15:35 Resp 16 03/16/17 15:35 BP 132/67 03/16/17 15:35 Pulse Ox 96 03/16/17 15:35 Intake & Output 03/15/17 03/16/17 03/16/17 18:59 06:59 18:59 Intake Total 240 Output Total 1400 750 Balance -1400 -510 Weight 76.6 kg 75.7 kg 75.7 kg Intake: Oral 240 Blood Product 0 Rc As-1 Unit 0 [id number] Output: Urine 1400 750 Other: Voiding Method Urinal Urinal # Voids 2 - Exam Patient is lying in the bed comfortably, no acute distress, awake alert and oriented.. HEENT: Normocephalic. Neck is supple. Pupils reactive. Nostrils clear. Oral cavity is moist. Ears reveal no drainage. Neck reveals no JVD, carotid bruits, or thyromegaly. CHEST EXAMINATION: Trachea is central. Symmetrical expansion. Bi- basilar crackles and decreased breath sounds. CARDIAC: Normal S1, S2 with no gallops. No murmurs ABDOMEN: Soft. Bowel sounds normal. No organomegaly. No abdominal bruits. Extremities reveal no edema. No clubbing or cyanosis Neurologically awake, alert, oriented x3 with well-coordinated movements. Skin: no rash or skin lesions Musculoskeletal: no joint swelling or deformity. - Labs CBC & Chem 7: 03/16/17 05:31 03/16/17 05:28 Labs: Abnormal Lab Results - Last 24 Hours (Table) 03/15/17 03/16/17 03/16/17 Range/Units 16:41 05:28 05:31 RBC 2.21 L (4.30-5.90) m/uL Hgb 7.5 L (13.0-17.5) gm/dL Hct 24.7 L (39.0-53.0) % MCV 111.8 H (80.0-100.0) fL MCHC 30.5 L (31.0-37.0) g/dL RDW 21.2 H (11.5-15.5) % Sodium 127 L (137-145) mmol/L BUN 22 H (9-20) mg/dL Glucose 69 L (74-99) mg/dL POC Glucose (mg/dL) 122 H (75-99) mg/dL Osmolality (280-301) mosm/kg Calcium 8.3 L (8.4-10.2) mg/dL Crossmatch 03/16/17 03/16/17 03/16/17 Range/Units 10:26 11:52 14:58 RBC (4.30-5.90) m/uL Hgb (13.0-17.5) gm/dL Hct (39.0-53.0) % MCV (80.0-100.0) fL MCHC (31.0-37.0) g/dL RDW (11.5-15.5) % Sodium (137-145) mmol/L BUN (9-20) mg/dL Glucose (74-99) mg/dL POC Glucose (mg/dL) 125 H (75-99) mg/dL Osmolality 279 L (280-301) mosm/kg Calcium (8.4-10.2) mg/dL Crossmatch See Detail Assessment and Plan Plan: Left-sided pneumothorax followed by biopsy. Iatrogenic: Chest tube was removed patient is fairly doing well but does have still with of wheezing and decreased air entry into bilateral lung love. Bilateral pneumonia: Patient is on ceftriaxone and azithromycin. Macrocytic anemia Hypovolemic hyponatremia did improve Severe COPD with acute exacerbation Chronic hypoxic respiratory failure History of colon cancer status post resection History of [place] GERD Chronic atrial fibrillation. 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 DVT prophylaxis Left upper lobe lung nodule status post CT-guided biopsy initially. Biopsy report inconclusive at the time. Pleural fluid cytopathology showed no malignant cells. Patient had wedge resection of the tumor left upper lobe lung on 03/10/2017. Biopsy report pending. Patient is going for repeat Bronk tomorrow, received 1 unit of blood transfusion.
[2017-03-16 16:59] LABS: Glucose,Whole Blood 132 mg/dL (75-99)
[2017-03-16 20:24] LABS: Glucose,Whole Blood 139 mg/dL (75-99)
[2017-03-17] MEDS: HYDROmorphone 1 MG/ML 1 ML SYRINGE IVP PRN ×5 (00:10→23:22)
[2017-03-17] MEDS: SODIUM CHLORIDE 0.9% 1,000 ML IV SCH (05:02)
[2017-03-17 06:05] LABS: Glucose,Whole Blood 79 mg/dL (75-99)
[2017-03-17] MEDS: INSULIN LISPRO (humaLOG) 300 UNIT/3 ML VIAL SQ SCH ×4 (06:21→21:15)
[2017-03-17 07:15] LABS: Anisocytosis Moderate; Basophils % (A) 0 %; CH 34.4; CHCM 30.9; Eosinophils # (A) 0.1 k/uL (0-0.7); Eosinophils % (A) 3 %; HCT 29.4 % (39.0-53.0); HDW 3.93; Hypochromasia Marked; Luc # (Auto) 0.18; Luc % (Auto) 4; Lymphocytes # (A) 1.1 k/uL (1.0-4.8); Lymphocytes % (A) 24 %; MCH 34.7 pg (25.0-35.0); MCHC 31.1 g/dL (31.0-37.0); MCV 111.8 fL (80.0-100.0); Mean Platelet Volume 8.4; Monocytes # (A) 0.5 k/uL (0-1.0); Monocytes % (A) 12 %; Neutrophils # (A) 2.7 k/uL (1.3-7.7); Neutrophils % (A) 58 %; Poikilocytosis Slight; RBC 2.63 m/uL (4.30-5.90); WBC 4.6 k/uL (3.8-10.6)
[2017-03-17 07:16] LABS: Anion Gap 8 mmol/L; Blood Urea Nitrogen 17 mg/dL (9-20); Calcium 8.1 mg/dL (8.4-10.2); Carbon Dioxide 21 mmol/L (22-30); Chloride 105 mmol/L (98-107); Glucose 71 mg/dL (74-99); HGB 9.1 gm/dL (13.0-17.5); Macrocytosis Marked; Non-African American GFR(MDRD) >60 (>60 ml/min/1.73 sqM); Potassium 4.8 mmol/L (3.5-5.1); Sodium 134 mmol/L (137-145)
--- NOTE | 2017-03-17 07:42 | XR ---
EXAMINATION TYPE: XR chest 2V DATE OF EXAM: 03/17/2017 COMPARISON: 03/16/2017 HISTORY: Shortness of breath TECHNIQUE: Frontal and lateral views of the chest are obtained. FINDINGS: Chronic interstitial pulmonary changes are again appreciated as well as pulmonary hyperinf lation with bullous changes of the lung apices. No new focal consolidation. Left upper lobe spiculate d density remains although does appear to overlie the anterior portion of the first rib and may be ar tifactual. Osseous demineralization is noted of the lumbar spine with mild degenerative changes. IMPRESSION: 1. Similar coarsened reticular interstitial lung disease with interstitial fibrosis. No new focal con solidation. 2. Spiculated left apical density may represent overlapping anterior left first rib and fibrotic patel ges and/or pulmonary nodule. 3. Consistent bullous emphysematous changes.
[2017-03-17] MEDS: BUDESONIDE 0.5 MG/2 ML NEBU INHALATION SCH ×2 (08:29→20:07)
[2017-03-17] MEDS: IPRATROPIUM-ALBUTEROL 3 ML NEB IH SCH ×4 (08:29→20:07)
[2017-03-17] MEDS ORDERED: MIDAZOLAM 2 MG/2 ML VIAL ONE (09:06)
[2017-03-17] MEDS ORDERED: LIDOCAINE 1% INJ 10MG/ML (20 ML MDV) ONE (09:06)
[2017-03-17] MEDS ORDERED: GLYCOPYRROLATE 0.2 MG/ML 2 ML VIAL ONE (09:06)
[2017-03-17] MEDS ORDERED: KETAMINE 10 MG/ML 20 ML VIAL ONE (09:06)
[2017-03-17] MEDS ORDERED: IV FLUID CONTINUATION 1,000 ML IV ONE (09:06)
[2017-03-17] MEDS ORDERED: fentaNYL (PF) 50 MCG/ML 2 ML AMP ONE (09:06)
[2017-03-17] MEDS ORDERED: PROPOFOL 10 MG/ML 20 ML VIAL IV ONE (09:06)
[2017-03-17] MEDS ORDERED: LIDOCAINE 2% INJ 20 MG/ML INTRATRACH ONE (09:33)
--- NOTE | 2017-03-17 09:49 | P.PCN ---
Date of Procedure: 03/17/17 Preoperative Diagnosis: Squamous cell lung cancer, hemoptysis, bilateral pneumonia Postoperative Diagnosis: As above Procedure(s) Performed: Bronchoscopy and bronchial alveolar lavage Surgeon: Rico Nazario Estimated Blood Loss (ml): 0 Disposition: floor Indications for Procedure: Hemoptysis, squamous cell lung cancer, bilateral pneumonia Operative Findings: As below Description of Procedure: Patient prepared and draped in the usual fashion informed consent obtained from the patient procedure alternative complication explained to the patient at length. Fiberoptic bronchoscope was passed to the left knee is absent right nares was very narrow tip of the scope was passed into the nasopharyngeal area into the laryngeal area. Some old blood was seen around the vocal cords tip of the scope was passed beyond the vocal cords into trachea there was old blood was seen along with extensive respiratory secretions into the abelino bilaterally tip of the scope was passed in the left side airway cleaning suction was done followed by similar intervention on the right side BAL workup was performed from the left lower lobe and left upper lobe followed by right lower lobe initial washings were containing of old blood however subsequently it cleared up no source of bleeding identified and no endobronchial mass or lesion seen bronchial mucosa is fairly within normal limit tolerated the procedure well no complication noted. The scope was slowly withdrawn thorough inspection of the upper airway including the laryngeal area and nasopharyngeal area was done no significant pathology lesion noted which could attribute to bleeding patient tolerated the procedure well no complication noted
--- NOTE | 2017-03-17 11:37 | P.NPCON ---
History of Present Illness - Reason for Consult hyponatremia - History of Present Illness Reason for consultation: Hyponatremia History of present illness: Patient is a 67-year-old male seen in renal consultation for hyponatremia. Patient initially presented to [facility] on March [address]-guided lung biopsy. He subsequently developed a pneumothorax and was transferred to [facility]. A chest tube was placed and subsequently removed. He was noted to have a lung mass and underwent wedge resection by cardiothoracic surgery. The biopsy was also suggestive of squamous cell carcinoma. His sodium level is gradually dropping and was down to 127 as of March 08. He was started on normal saline at 50 mL an hour and sodium level is up to 134 this morning. Patient had developed hemoptysis and underwent a bronchoscopy this morning. He is currently resting in bed. He admits to soreness in his throat from the bronchoscopy. No vomiting or diarrhea. He did have hemoptysis again this morning. He has been voiding. No hematuria or dysuria. Vital signs are stable. General: The patient appeared well nourished and normally developed. HEENT: Head exam is unremarkable. Neck is without jugular venous distension. LUNGS: Lungs are clear to auscultation and percussion. Breath sounds decreased. HEART: Rate and Rhythm are regular. First and second heart sounds normal. No murmurs, rubs or gallops. ABDOMEN: Abdominal exam reveals normal bowel sounds. Non-tender and non- distended. No evidence of peritonitis. EXTREMITITES: No clubbing, cyanosis, or edema. Past Medical History Past Medical History: Atrial Fibrillation, Cancer, Chest Pain / Angina, COPD, CVA/TIA, GERD/Reflux, GI Bleed, Hyperlipidemia, Hypertension, Myocardial Infarction ([place]), Musculoskeletal Disorder, Renal Disease, Seizure Disorder Additional Past Medical History / Comment(s): 07/21/14 Pt states he was admitted on 07/17/14 and had colonoscopy then laparoscopic sigmoid colectomy for adenocarcinoma was performed on 07/19/14. Other HX: colon cancer found during colonoscopy-polyp which was adenocarcinoma, ULCER; EPILEPTIC - STATES LAST SEIZURE PREV TO 1994; CVA - AFFECTS SPEECH/able to print but not write in cursive. UNABLE TO COMPLETELY CLOSE LEFT HAND R/T hx of LARGE LACERATION. HX OF RT HIP DISORDER, WORE CAST, THEN BRACE FOR 2 YRS, chronic low back pain, renal cysts and kidney stones, GI bleed associated with anticoaulation. Has home O2 which he uses when necessary Last Myocardial Infarction Date:: patient reports 19 years ago History of Any Multi-Drug Resistant Organisms: None Reported Past Surgical History: Orthopedic Surgery Additional Past Surgical History / Comment(s): 07/19/14 Laparoscopic sigmoid colectomy. LEFT HAND SX, EXC VILMA CATARACTS; COLONOSCOPY 05/26/14. Past Anesthesia/Blood Transfusion Reactions: No Reported Reaction Past Psychological History: No Psychological Hx Reported Smoking Status: Former smoker Past Alcohol Use History: Rare Past Drug Use History: None Reported - Past Family History Father Family Medical History: CVA/TIA Mother Family Medical History: Cancer Medications and Allergies Home Medications Medication Instructions Recorded Confirmed Type Budesonide-Formot 160-4.5 Mcg 2 puff INHALATION RT-BID 05/22/14 03/02/17 History [Symbicort 160-4.5 Mcg Inhaler] Divalproex [Depakote] 1,000 mg PO BID 05/22/14 03/02/17 History carBAMazepine [carBAMazepine XR] 400 mg PO BID 05/22/14 03/02/17 History Allergies Allergy/AdvReac Type Severity Reaction Status Date / Time No Known Allergies Allergy Verified 03/02/17 21:42 Physical Exam Vitals: Vital Signs Temp Pulse Pulse Pulse Resp BP BP 03/17/17 08:54 92 03/17/17 08:29 84 03/17/17 08:00 104 H 16 154/76 03/17/17 04:00 98.3 F 101 H 18 111/50 03/17/17 00:00 98.2 F 104 H 18 134/64 03/16/17 21:36 88 03/16/17 20:56 92 03/16/17 20:00 98.0 F 108 H 16 144/63 03/16/17 17:45 98.5 F 98 18 130/65 03/16/17 16:41 92 03/16/17 16:18 92 03/16/17 16:00 83 16 03/16/17 15:35 98.5 F 83 16 132/67 03/16/17 15:18 98.5 F 83 18 132/67 03/16/17 15:08 97.6 F 82 18 130/70 03/16/17 12:00 88 18 87/46 03/16/17 11:42 88 03/16/17 11:29 98 Pulse Ox 03/17/17 08:54 03/17/17 08:29 03/17/17 08:00 96 03/17/17 04:00 95 03/17/17 00:00 95 03/16/17 21:36 03/16/17 20:56 03/16/17 20:00 99 03/16/17 17:45 03/16/17 16:41 03/16/17 16:18 99 03/16/17 16:00 03/16/17 15:35 96 03/16/17 15:18 96 03/16/17 15:08 95 03/16/17 12:00 99 03/16/17 11:42 03/16/17 11:29 Intake and Output 03/16/17 03/17/17 03/17/17 22:59 06:59 14:59 Intake Total 670 50 Output Total 750 350 Balance -80 -350 50 Intake: IV 50 Oral 360 Blood Product 310 Rc As-1 Unit 310 [id number] Output: Urine 750 350 Other: Voiding Method Urinal Urinal Urinal # Voids 1 1 Weight 75.7 kg 75.4 kg Results - Lab Results Most recent lab results Calcium 8.1 mg/dL (8.4-10.2) L 03/17/17 05:41 Phosphorus 3.5 mg/dL (2.5-4.5) 03/07/17 05:55 Magnesium 1.6 mg/dL (1.6-2.3) 03/07/17 05:55 03/17/17 05:41 03/17/17 05:41 Assessment and Plan Plan: Assessment: #1. Hypovolemic hyponatremia improving with IV hydration. Sodium level up to 134 this morning. Urine sodium was 38 but can be elevated due to the IV fluids he's been receiving. Urine osmolality quite low at 229 suggesting excess fluid intake. Patient is also on Tegretol as well as Depakote which can induce SIADH - Urine studies not suggestive of SIADH at this time. #2. Squamous cell carcinoma of the lung status post wedge resection. #3. Pneumothorax status post removal of chest tube. Resolved. #4. Bilateral pneumonia maintained on antibiotics. #5. Hemoptysis. Can be due to malignancy as well as the pneumonia. He underwent a bronchoscopy this morning. #6. Acute blood loss anemia status post blood transfusion. Hemoglobin 9.1 this morning. Plan: Encourage oral intake as tolerated. 1.2 L fluid restricted diet. Continue normal saline at 50 mL an hour for now - can likely discontinue tomorrow once his oral intake improves. Repeat electrolytes in the morning. Thank you for the consultation. I will continue to follow the patient with you during his hospital stay.
[2017-03-17 12:01] LABS: Glucose,Whole Blood 86 mg/dL (75-99)
[2017-03-17] MEDS: TAMSULOSIN 0.4 MG CAP.ER.24H PO SCH ×2 (13:03→13:05)
[2017-03-17] MEDS: DIVALPROEX 500 MG TABLET.DR PO SCH ×2 (13:05→21:16)
[2017-03-17] MEDS: METOPROLOL SUCCINATE (ER) 25 MG TAB.ER.24H PO SCH (13:05)
[2017-03-17] MEDS: carBAMazepine 400 MG TAB.ER.12H PO SCH ×2 (13:05→20:11)
[2017-03-17] MEDS: AZITHROMYCIN 500 MG TAB PO SCH (13:06)
[2017-03-17] MEDS: ENOXAPARIN 40 MG/0.4 ML SYRINGE SQ SCH ×2 (13:06→20:11)
[2017-03-17] MEDS: predniSONE 20 MG TAB PO SCH (13:07)
[2017-03-17] MEDS: FAMOTIDINE 20 MG TAB PO SCH ×2 (13:07→20:12)
--- NOTE | 2017-03-17 14:54 | P.PN ---
Subjective Patient was admitted for iatrogenic tension pneumothorax, left upper lobe mass, bilateral pneumonia, chronic hypoxic respiratory failure, severe COPD andemphysema, hemoptysis. 03/15/2017 Patient is doing much better today but the his sodium has gone down I am not sure about the exact etiology of low-sodium probably labyrinthine will repeat the sodium tomorrow we'll check with the [facility] thoracic surgery regarding further recommendations possibly of discharge tomorrow to subacute rehabitation. 03/16/2017 Patient had minimal hemoptysis today, patient is receiving blood transfusion ordered by pulmonary. Patient is going for repeat bronchoscopy tomorrow. 03/17/2017 Patient underwent bronchoscopy today, patient is coughing up bloody and dark sputum. Patient is wheezing little bit crackles improved denied any short of breath denied any abdominal pain denied any nausea vomiting. Continuing antibiotics close clinical monitoring. Objective - Vital Signs Vital signs: Vital Signs Temp 98.3 F 03/17/17 04:00 Pulse 96 03/17/17 12:12 Resp 16 03/17/17 14:38 BP 143/79 03/17/17 12:00 Pulse Ox 96 03/17/17 08:00 Intake & Output 03/16/17 03/17/17 03/17/17 18:59 06:59 18:59 Intake Total 910 50 Output Total 750 1100 700 Balance 160 -1100 -650 Weight 75.7 kg 75.4 kg Intake: IV 50 Oral 600 Blood Product 310 Rc As-1 Unit 310 [id number] Output: Urine 750 1100 700 Other: Voiding Method Urinal Urinal Urinal # Voids 1 1 - Exam Patient is lying in the bed comfortably, no acute distress, awake alert and oriented.. HEENT: Normocephalic. Neck is supple. Pupils reactive. Nostrils clear. Oral cavity is moist. Ears reveal no drainage. Neck reveals no JVD, carotid bruits, or thyromegaly. CHEST EXAMINATION: Trachea is central. Symmetrical expansion. Crackles improved but does have significant expiratory wheezing CARDIAC: Normal S1, S2 with no gallops. No murmurs ABDOMEN: Soft. Bowel sounds normal. No organomegaly. No abdominal bruits. Extremities reveal no edema. No clubbing or cyanosis Neurologically awake, alert, oriented x3 with well-coordinated movements. Skin: no rash or skin lesions Musculoskeletal: no joint swelling or deformity. - Labs CBC & Chem 7: 03/17/17 05:41 03/17/17 05:41 Labs: Abnormal Lab Results - Last 24 Hours (Table) 03/16/17 03/16/17 03/16/17 Range/Units 10:26 10:26 14:58 RBC (4.30-5.90) m/uL Hgb (13.0-17.5) gm/dL Hct (39.0-53.0) % MCV (80.0-100.0) fL RDW (11.5-15.5) % Sodium (137-145) mmol/L Carbon Dioxide (22-30) mmol/L Glucose (74-99) mg/dL POC Glucose (mg/dL) (75-99) mg/dL Osmolality 279 L (280-301) mosm/kg Calcium (8.4-10.2) mg/dL Iron 62 L (65-175) ug/dL TIBC 218 L (228-460) ug/dL Ferritin 624.0 H (22.0-322.0) ng/mL Crossmatch See Detail 03/16/17 03/16/17 03/17/17 Range/Units 16:48 20:12 05:41 RBC (4.30-5.90) m/uL Hgb (13.0-17.5) gm/dL Hct (39.0-53.0) % MCV (80.0-100.0) fL RDW (11.5-15.5) % Sodium 134 L (137-145) mmol/L Carbon Dioxide 21 L (22-30) mmol/L Glucose 71 L (74-99) mg/dL POC Glucose (mg/dL) 132 H 139 H (75-99) mg/dL Osmolality (280-301) mosm/kg Calcium 8.1 L (8.4-10.2) mg/dL Iron (65-175) ug/dL TIBC (228-460) ug/dL Ferritin (22.0-322.0) ng/mL Crossmatch 03/17/17 Range/Units 05:41 RBC 2.63 L (4.30-5.90) m/uL Hgb 9.1 L D (13.0-17.5) gm/dL Hct 29.4 L (39.0-53.0) % MCV 111.8 H (80.0-100.0) fL RDW 21.0 H (11.5-15.5) % Sodium (137-145) mmol/L Carbon Dioxide (22-30) mmol/L Glucose (74-99) mg/dL POC Glucose (mg/dL) (75-99) mg/dL Osmolality (280-301) mosm/kg Calcium (8.4-10.2) mg/dL Iron (65-175) ug/dL TIBC (228-460) ug/dL Ferritin (22.0-322.0) ng/mL Crossmatch Assessment and Plan Plan: Left-sided pneumothorax followed by biopsy. Iatrogenic: Chest tube was removed patient is fairly doing well but does have still with of wheezing and decreased air entry into bilateral lung love. Bilateral pneumonia: Patient is on ceftriaxone and azithromycin. Macrocytic anemia Hypovolemic hyponatremia did improve Severe COPD with acute exacerbation Chronic hypoxic respiratory failure History of colon cancer status post resection History of [place] GERD Chronic atrial fibrillation. 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 DVT prophylaxis Left upper lobe lung nodule status post CT-guided biopsy initially. Biopsy report inconclusive at the time. Pleural fluid cytopathology showed no malignant cells. Patient had wedge resection of the tumor left upper lobe lung on 03/10/2017. Biopsy report pending. Patient is status post bronchoscopy today
--- NOTE | 2017-03-17 15:10 | P.PN ---
Subjective Principal diagnosis: Tension pneumothorax, left upper lobe mass, bilateral pneumonia, chronic hypoxic respiratory failure, severe COPD andemphysema, hemoptysis 03/17/17- patient is evaluated and examined on rounds. patient is s/p bronchoscopy, please see procedure notes for details. Continues on 3L of supplemental oxygen, Continues with blood tinged sputum intermittently. hgb stable today. previous chest tube site clean dry and intact. Patient continues to use IS, encourged to increase activity as tolerated. All labs and reports reviewed. 03/16/17- patient is being evaluated and examined today on rounds. Patient is resting in bed on 3 L of supplemental oxygen, he is quite fatigued. All labs and reports were reviewed. His hemoglobin is noted to drop down to 7.5 today and his sodium is 127, potassium 4.7. Patient has been coughing up blood- tinged sputum he feels very congested. Chest x-ray from today does show chronic interstitial pulmonary fibrosis and COPD with no sizable pneumothorax, small left effusion and pleural based thickening along the lateral chest wall as well as a spiculated mass in the left upper lobe. The patient is on scheduled Lovenox. 03/15/17- patient is being evaluated and examined and seen today on rounds. Apparently the patient was having some progressive shortness of breath yesterday throughout the day and into the evening however he states it has stable this morning. Patient is encouraged to participate in PT and OT. Chest tube site remains clean dry and intact. Patient did undergo a barium swallow, yesterday which was negative. Upon evaluation the patient is resting up in bed on 3 L of supplemental oxygen. States he does have a congested cough. He is afebrile, no further complaints. 03/14/17- patient is being seen in evaluated and examined today on rounds. Patient did have chest tube removal yesterday. Dressing is clean dry and intact. Chest x-ray has been reviewed and shows no sizable pneumothorax, spiculated mass in the left upper lobe, pulmonary fibrosis and changes of COPD. Patient encouraged to use incentive spirometer and increase activity as tolerated. He is afebrile, no overnight events. 03/13/17- patient is being seen examined and evaluated today on rounds. Patient has under his VATS resection on Monday. His breathing has improved. He has no hemoptysis. Chest tube in place and is currently clamped. Chest x-ray from this morning does show a stable interstitial changes with findings suggestive pulmonary fibrosis. Superimposed acute interstitial process is not excluded. Approximate 10% left-sided pneumothorax. Stable spiculated mass left upper lobe. On examination the patient's resting up in bed on room air he is afebrile no further complaints. 03/12/2017 patient seen and evaluated examined during the rounds he is having issues associated with cough congestion which is slightly better continued to have a pain at surgical site but is manageable with medication, he has problem with urinary retention requiring straight cath and initiation of Flomax which has been started and is being monitored and observed that regard. He has been advised to continue deep breathing exercises incentive spirometry overall is slightly improved compared to prior exam no more hemoptysis seen 03/11/2017, patient seen and evaluated examined in the [facility] care patient has successfully underwent wedge resection of the left upper lobe firm nodule which is about 2 cm in size operative reports and the primary data has been reviewed and grossly negative margins were noted the nodules been sent for histopathology final results are pending. Patient is complaining of pleuritic chest pain in the left side which is stable no pain medicine seems to be effective there is a pleural VAC is present on the right side and no air leak is present about 350 mL of dark pleural fluid has been accumulated. Patient remains on [place] antibiotics does feel some congestion and cough however no significant sputum production is seen he has baseline shortness of breath which is overall stable patient has been consult at length about importance to using IES continued to do deep breathing exercise continue pain medicine maintain patient on DVT and peptic ulcer disease prophylaxis 03/10/17- seen and examined and evaluated today on the sixth floor. Upon examination the patient is resting up in bed on room air with supplemental oxygen laying next to him. He states that he uses 2 L of supplemental oxygen off and on for comfort throughout the day when he gets winded. Patient states he does get short of breath and winded with activity and exertion. Oxygen saturations have been maintained in the mid to high 90s. Patient has been nothing by mouth since midnight for VATS procedure to be done today by cardiothoracic surgery. All labs and reports have been reviewed. 03/09/17- patient is being seen examined and evaluated today on the sixth floor. Upon examination the patient is resting up in bed on 2 L of supplemental oxygen via nasal cannula, oxygen saturations in the high 90s. Chest tube site remains clean dry and intact. Patient is being scheduled to undergo VATS procedure tomorrow with cardiothoracic surgery. He is afebrile, no overnight events. 03/08/17 patient is being seen examined and evaluated today on the sixth floor. His chest tube was removed yesterday. Dressing is clean dry and intact. Chest x-ray was reviewed from this morning does show that the left-sided chest tube has been removed without evidence for recurrent pneumothorax. Small amount of subcutaneous emphysema seen along the left chest wall. Improving left basilar infiltrate and/or atelectasis. Stable chronic density in the right upper lobe. Upon examination patient sitting up in bed on room air. He has been using supplemental oxygen on and off per the nursing staff for comfort. His oxygen saturations have remained in the mid 90s. He is afebrile, no overnight events. Patient is scheduled to go for a left video-assisted thoracoscopic wedge biopsy on Monday. 03/07/2017, patient seen and evaluated exam and on 6 floor he is breathing comfortably less short of breath his cuff congestion has improved he is not coughing purulent sputum anymore hemoptysis has resolved his chest tube has been placed on water seal a chest x-ray performed right in front of me which I have reviewed it no pneumothorax is seen on water seal. Patient is afebrile with the FiO2 is down to 2 L now and sats are 98% hemodynamic status stable except atrial fibrillation with controlled ventricular response on telemetry, the biopsy results are nondiagnostic awaiting further recommendation from cardiothoracic surgery in the meantime we'll taper down the steroids further and hopefully discontinue and next 24 hours 03/06/2017, patient seen and evaluated examined care plan discussed with the nursing staff at length biopsy results are obtained from the patient on [facility] it's a nondiagnostic tissue. Patient is breathing definitely better he still have left-sided chest tube no a leak is present subcu continue him emphysema which was seen previously is almost resolved no evidence of active hemoptysis seen patient remains in atrial fibrillation with controlled ventricular response she is on subcu Lovenox is also on broad-spectrum antibiotics and oral prednisone and seems to be tolerating very well, we'll start tapering down the steroids lowered down to 30 mg daily continue other antibiotics, awaiting further recommendation from thoracic surgery patient may very well and been getting the VATS procedure with wedge resection of left upper lobe nodule and and mediastinoscopy 03/05/17, patient seen and evaluated examined today some level of pain is present on the left thoracic wall subcu emphysema which was noted previously has improved significantly patient does have intermittent cough and chest tightness proceeded he has improved though his been getting Twining and as needed Dilaudid for adequate pain control. His chest x-ray done today failed to reveal significant pneumothorax a questionable left apical pneumothorax cannot be excluded along with some interstitial edema and basal atelectasis likely related to poor respiratory effort is still waiting for the biopsy results from [facility] with further recommendations pending cardiothoracic surgery is following as well, no more evidence of any hemoptysis is been seen heart rate is better under control but however rhythm remains atrial fibrillation with controlled ventricular response 03/04/2017, patient seen and evaluated examined in ICU he is awake and alert breathing relatively comfortably would get anxious and agitated events from yesterday and last night has been noted, patient to have left left tension pneumothorax as the prior pigtail rest tube was plugged requiring emergent placement off a new 28-Greek chest tube by me in a stable position. Able to evacuate the tension pneumothorax no more bubbling was seen however patient was trying to get up late last night and to use the urinal disconnected himself over the chest tube developed shortness of breath later on the tube has been reconnected by nurse staff had no more air leak is seen in the pleural VAC. Patient has episodes of intermittent anxiety we will start him on low-dose Xanax patient had low magnesium which is being repleted he is on diet tolerated well patient has been evaluated by Dr. Persaud from thoracic surgery awaiting biopsy results with further interventions pending. His chest x-ray from earlier this morning reviewed no pneumothorax is seen chest tube was stable the right perihilar pneumonia and left lower lobe pneumonia not much change overall stable on antibiotics His labs from today's reviewed borderline hyponatremia noted he is anemic with hemoglobin of 9.6 we'll monitor observe closely Critical care time spent 35 minutes Mr. Davila is a 67-year-old male with history of severe COPD emphysema and chronic persistent asthma patient also has history of chronic atrial fibrillation and has been attempted on anticoagulants but couldn't tolerate it because of the GI bleeding has been off of blood thinners patient is somewhat unreliable in terms of follow-up he does have a history of prior pneumonia and right-sided nodule however that did resolve though. Patient was sent from the primary care provider to my office with ongoing hemoptysis and also found to have abnormal chest x-ray and CAT scan in fact patient had a PET scan as well which revealed positive uptake in the left upper lobe nodule which was new. Patient also found to have a left upper lobe and right lower lobe infiltrate suggestive of pneumonia given the severe respiratory status patient was considered not to be a candidate for bronchoscopy and biopsies options were discussed with him to optimize therapy and decision was done to admit the patient into the hospital to treat the pneumonia and consideration of biopsy and along the same time. Patient did respond well with the antibiotics with improvement in respiratory status and hemoptysis however interventional radiology was consulted for CT- guided biopsy of left upper lobe nodule they initially attempted a small lymph node on the neck in cervical area which was nondiagnostic followed by CT-guided biopsy of left upper lobe nodule. Patient did have left the pneumothorax which was progressive and eventually giving appearance of a tension pneumothorax requiring emergent placement of a small bore chest tube by interventional radiology the pneumothorax resolved only a small residual 5% pneumothorax was seen subsequent x-ray performed in the afternoon. At that time decision was done to monitor observe and patent patient to be transferred to [facility] for further evaluation and intervention and treatment and possible resection of left upper lobe nodule Objective - Vital Signs Vital signs: Vital Signs Temp 98.3 F 03/17/17 04:00 Pulse 96 03/17/17 12:12 Resp 16 03/17/17 14:38 BP 143/79 03/17/17 12:00 Pulse Ox 96 03/17/17 08:00 Intake & Output 03/16/17 03/17/17 03/17/17 18:59 06:59 18:59 Intake Total 910 50 Output Total 750 1100 1070 Balance 160 -1100 -1020 Weight 75.7 kg 75.4 kg Intake: IV 50 Oral 600 Blood Product 310 Rc As-1 Unit 310 [id number] Output: Urine 750 1100 1070 Other: Voiding Method Urinal Urinal Urinal # Voids 1 2 # Bowel Movements 0 - Exam - Exam - Constitutional General appearance: cooperative, disheveled, mild distress, fatigued - EENT Eyes: EOMI, PERRLA, normal appearance Ears: bilateral: normal - Neck Neck: normal ROM Carotids: bilateral: upstroke normal, bruit absent Thyroid: negative: normal size - Respiratory Respiratory: bilateral: diminished, congested, rhonchi, wheezing, prolonged expiration, no significant subcu emphysema is seen, chest tube has been discontinued . Is clean dry and intact. - Cardiovascular Rhythm: irregularly irregular Heart sounds: normal: S1, S2 - Gastrointestinal General gastrointestinal: decreased bowel sounds, normal bowel sounds, soft - Integumentary Integumentary: normal, normal turgor - Neurologic Neurologic: CNII-XII intact - Musculoskeletal Musculoskeletal: gait normal, generalized weakness, strength equal bilaterally - Psychiatric Psychiatric: A&O x's 3, appropriate affect, intact judgment & insight - Labs CBC & Chem 7: 03/17/17 05:41 03/17/17 05:41 Labs: Abnormal Lab Results - Last 24 Hours (Table) 03/16/17 03/16/17 03/16/17 Range/Units 10:26 10:26 14:58 RBC (4.30-5.90) m/uL Hgb (13.0-17.5) gm/dL Hct (39.0-53.0) % MCV (80.0-100.0) fL RDW (11.5-15.5) % Sodium (137-145) mmol/L Carbon Dioxide (22-30) mmol/L Glucose (74-99) mg/dL POC Glucose (mg/dL) (75-99) mg/dL Osmolality 279 L (280-301) mosm/kg Calcium (8.4-10.2) mg/dL Iron 62 L (65-175) ug/dL TIBC 218 L (228-460) ug/dL Ferritin 624.0 H (22.0-322.0) ng/mL Crossmatch See Detail 03/16/17 03/16/17 03/17/17 Range/Units 16:48 20:12 05:41 RBC (4.30-5.90) m/uL Hgb (13.0-17.5) gm/dL Hct (39.0-53.0) % MCV (80.0-100.0) fL RDW (11.5-15.5) % Sodium 134 L (137-145) mmol/L Carbon Dioxide 21 L (22-30) mmol/L Glucose 71 L (74-99) mg/dL POC Glucose (mg/dL) 132 H 139 H (75-99) mg/dL Osmolality (280-301) mosm/kg Calcium 8.1 L (8.4-10.2) mg/dL Iron (65-175) ug/dL TIBC (228-460) ug/dL Ferritin (22.0-322.0) ng/mL Crossmatch 03/17/17 Range/Units 05:41 RBC 2.63 L (4.30-5.90) m/uL Hgb 9.1 L D (13.0-17.5) gm/dL Hct 29.4 L (39.0-53.0) % MCV 111.8 H (80.0-100.0) fL RDW 21.0 H (11.5-15.5) % Sodium (137-145) mmol/L Carbon Dioxide (22-30) mmol/L Glucose (74-99) mg/dL POC Glucose (mg/dL) (75-99) mg/dL Osmolality (280-301) mosm/kg Calcium (8.4-10.2) mg/dL Iron (65-175) ug/dL TIBC (228-460) ug/dL Ferritin (22.0-322.0) ng/mL Crossmatch Assessment and Plan Plan: Assessment Bilateral pneumonia with hemoptysis Left upper lobe nodule Left-sided iatrogenic tension pneumothorax status post new 28-Greek left-sided chest tube and removal of old pigtail catheter Severe COPD with chronic hypoxic respiratory failure Chronic atrial fibrillation Status post VATS procedure Anemia, suspect acute blood loss Hyponatremia Plan Plan is to monitor observe patient in selective care, thoracic surgery consultation, patient's is status post VATS procedure for left upper lobe nodule resection with VATS resection. Patient is s/p bronch. We will maintain patient on broad-spectrum antibiotics DVT and peptic ulcer disease prophylaxis for anxiety on on Xanax maintain patient on peptic ulcer disease prophylaxis continue Lovenox for chronic atrial fibrillation for now. we'll do a bedside spirometry patient is being maintained on subcu Lovenox will continue the antibiotics breathing treatment, steroids have been switched to oral. patient will be kept on peptic ulcer disease prophylaxis and supportive care care plan discussed with the nursing staff at length. Increase activity as tolerated. Continue pulmonary hygiene and supportive care. Supplemental oxygen to maintain oxygen saturations greater than 92%. Further recommendations pending. I performed an examination of the patient and discussed their management with the nurse practitioner. I have reviewed the nurse practitioner's note and agree with the documented findings and plan of care.
[2017-03-17 16:39] LABS: Glucose,Whole Blood 78 mg/dL (75-99)
[2017-03-17] MEDS: HYDROcodone/APAP 7.5-325MG 1 EACH TAB PO PRN (17:09)
--- NOTE | 2017-03-17 18:24 | P.CONS ---
History of Present Illness - Reason for Consult Consult date: 03/17/17 New diagnosis squamous cell lung cancer - History of Present Illness The patient is a 67-year-old gentleman, well-known to myself. He is a known history of recurrent lung opacities , for which we are consulted initially in 2013. However , these did resolve with antibiotics in the past. In early 2014 he was diagnosed with colon cancer and underwent resection. He was found to have a stage II cancer, and chemotherapy was not recommended based on stage, per guidelines. The patient has continued on follow-up, and also follows up with Dr. Nazario. On routine CT scans done in 01/31, he was found to have a suspicious nodule in the left upper lobe. He was referred back to Dr. Nazario for further workup. PET scan did show suspicious uptake in this nodule. He was admitted to [facility] about 3 weeks ago for pneumonia. At that time, he did undergo an FNA of left neck nodes. This came back nondiagnostic. A CT-guided biopsy of the left lung nodule was then attempted, I'll let to a pneumothorax. He had a self-retaining chest tube placed, and was transferred here. Pneumothorax continued to progress leading to her tension type situation. Cardiothoracic surgery were thus consulted, and the patient underwent chest tube placement, with eventual resolution of his pneumothorax. He also underwent a thoracoscopic wedge biopsy of the left lung nodule on 03/10/17. This came back positive for squamous cell lung cancer. The patient's course has been completed by development of pleural effusions requiring thoracentesis 2. On both those occasions, cytology was negative. He also had a bronchoscopy yesterday. Consult was therefore placed for further evaluation and recommendations Review of Systems Constitutional: Reports poor appetite, Reports weakness, Reports weight loss Eyes: denies blurred vision, denies pain Ears: deny: decreased hearing, ear discharge, earache, tinnitus Ears, nose, mouth and throat: Denies headache, Denies sore throat Cardiovascular: Reports irregular heart beat, Reports shortness of breath Respiratory: Reports as per HPI, Reports cough with sputum, Reports dyspnea Gastrointestinal: Denies abdominal pain, Denies diarrhea, Denies nausea, Denies vomiting Genitourinary: Reports as per HPI Musculoskeletal: Reports muscle weakness Integumentary: Denies pruritus, Denies rash Neurological: Reports weakness, Denies numbness Psychiatric: Reports memory loss (Mild) Endocrine: Reports fatigue, Reports weight change Hematologic/Lymphatic: Reports as per HPI Past Medical History Past Medical History: Atrial Fibrillation, Cancer, Chest Pain / Angina, COPD, CVA/TIA, GERD/Reflux, GI Bleed, Hyperlipidemia, Hypertension, Myocardial Infarction ([place]), Musculoskeletal Disorder, Renal Disease, Seizure Disorder Additional Past Medical History / Comment(s): 07/21/14 Pt states he was admitted on 07/17/14 and had colonoscopy then laparoscopic sigmoid colectomy for adenocarcinoma was performed on 07/19/14. Other HX: colon cancer found during colonoscopy-polyp which was adenocarcinoma, ULCER; EPILEPTIC - STATES LAST SEIZURE PREV TO 1994; CVA - AFFECTS SPEECH/able to print but not write in cursive. UNABLE TO COMPLETELY CLOSE LEFT HAND R/T hx of LARGE LACERATION. HX OF RT HIP DISORDER, WORE CAST, THEN BRACE FOR 2 YRS, chronic low back pain, renal cysts and kidney stones, GI bleed associated with anticoaulation. Has home O2 which he uses when necessary Last Myocardial Infarction Date:: patient reports 19 years ago History of Any Multi-Drug Resistant Organisms: None Reported Past Surgical History: Orthopedic Surgery Additional Past Surgical History / Comment(s): 07/19/14 Laparoscopic sigmoid colectomy. LEFT HAND SX, EXC VILMA CATARACTS; COLONOSCOPY 05/26/14. Past Anesthesia/Blood Transfusion Reactions: No Reported Reaction Past Psychological History: No Psychological Hx Reported Smoking Status: Former smoker Past Alcohol Use History: Rare Past Drug Use History: None Reported - Past Family History Father Family Medical History: CVA/TIA Mother Family Medical History: Cancer Medications and Allergies Home Medications Medication Instructions Recorded Confirmed Type Budesonide-Formot 160-4.5 Mcg 2 puff INHALATION RT-BID 05/22/14 03/02/17 History [Symbicort 160-4.5 Mcg Inhaler] Divalproex [Depakote] 1,000 mg PO BID 05/22/14 03/02/17 History carBAMazepine [carBAMazepine XR] 400 mg PO BID 05/22/14 03/02/17 History Allergies Allergy/AdvReac Type Severity Reaction Status Date / Time No Known Allergies Allergy Verified 03/02/17 21:42 Physical Exam Vitals: Vital Signs Temp Pulse Pulse Pulse Resp BP BP 03/17/17 16:08 88 03/17/17 15:57 88 03/17/17 14:38 16 03/17/17 12:12 96 03/17/17 12:00 100 16 143/79 03/17/17 11:59 88 03/17/17 11:54 16 03/17/17 08:54 92 03/17/17 08:29 84 03/17/17 08:00 104 H 16 154/76 03/17/17 04:00 98.3 F 101 H 18 111/50 03/17/17 00:00 98.2 F 104 H 18 134/64 03/16/17 21:36 88 03/16/17 20:56 92 03/16/17 20:00 98.0 F 108 H 16 144/63 03/16/17 17:45 98.5 F 98 18 130/65 Pulse Ox 03/17/17 16:08 03/17/17 15:57 03/17/17 14:38 03/17/17 12:12 03/17/17 12:00 03/17/17 11:59 03/17/17 11:54 03/17/17 08:54 03/17/17 08:29 03/17/17 08:00 96 03/17/17 04:00 95 03/17/17 00:00 95 03/16/17 21:36 03/16/17 20:56 03/16/17 20:00 99 03/16/17 17:45 Intake and Output 03/17/17 03/17/17 03/17/17 06:59 14:59 22:59 Intake Total 50 Output Total 350 700 480 Balance -350 -650 -480 Intake: IV 50 Output: Urine 350 700 480 Other: Voiding Method Urinal Urinal # Voids 1 1 2 # Bowel Movements 0 Weight 75.4 kg - Constitutional General appearance: no acute distress - EENT Eyes: EOMI, PERRLA ENT: hearing grossly normal, normal oropharynx - Neck Neck: lymphadenopathy - Cardiovascular Rhythm: irregularly irregular Heart sounds: normal: S1, S2 - Gastrointestinal General gastrointestinal: normal bowel sounds, soft - Integumentary Integumentary: normal - Neurologic Neurologic: CNII-XII intact - Musculoskeletal Musculoskeletal: generalized weakness, strength equal bilaterally - Psychiatric Psychiatric: A&O x's 3, appropriate affect Results CBC & Chem 7: 03/17/17 05:41 03/17/17 05:41 Labs: Abnormal Lab Results - Last 24 Hours (Table) 03/16/17 03/16/17 03/16/17 Range/Units 10:26 10:26 20:12 RBC (4.30-5.90) m/uL Hgb (13.0-17.5) gm/dL Hct (39.0-53.0) % MCV (80.0-100.0) fL RDW (11.5-15.5) % Sodium (137-145) mmol/L Carbon Dioxide (22-30) mmol/L Glucose (74-99) mg/dL POC Glucose (mg/dL) 139 H (75-99) mg/dL Calcium (8.4-10.2) mg/dL Iron 62 L (65-175) ug/dL TIBC 218 L (228-460) ug/dL Ferritin 624.0 H (22.0-322.0) ng/mL Crossmatch See Detail 03/17/17 03/17/17 Range/Units 05:41 05:41 RBC 2.63 L (4.30-5.90) m/uL Hgb 9.1 L D (13.0-17.5) gm/dL Hct 29.4 L (39.0-53.0) % MCV 111.8 H (80.0-100.0) fL RDW 21.0 H (11.5-15.5) % Sodium 134 L (137-145) mmol/L Carbon Dioxide 21 L (22-30) mmol/L Glucose 71 L (74-99) mg/dL POC Glucose (mg/dL) (75-99) mg/dL Calcium 8.1 L (8.4-10.2) mg/dL Iron (65-175) ug/dL TIBC (228-460) ug/dL Ferritin (22.0-322.0) ng/mL Crossmatch Comments: PET report from [facility] reviewed videoesophagogram report reviewed Op report, pathology, cytology reports reviewed Chest x-ray: report reviewed Assessment and Plan (1) Squamous cell lung cancer Narrative/Plan: The patient has had a history of lung opacities in the past, at least 2, which was initially read as suspicious. However, these resolved with antibiotics and were felt to be inflammatory. The newly diagnosed left lung opacity, did show suspicious uptake on PET scan . Wedge resection was positive for squamous cell cancer. Margins were negative. The tumor is comparatively small, measuring 2 cm, with all margins negative. The pathology report and implications were discussed in detail with the patient. At this time, it is a possibility that this could represent a lung limited disease. Biopsy of neck nodes, none previously was nondiagnostic. The patient will need additional workup to check for more advanced stage. Currently his performance status is quite poor. Once he is sufficiently recovered from his acute condition, we will pursue this as an outpatient, with repeat PET scan. Depending on those findings, additional staging procedures, as appropriate, can be planned. As the patient is found to have lung limited disease, further treatment options could include completion lobectomy (if his performance status is sufficient for the same), radiation, or observation, especially if his performance status remains poor Status: Acute (2) History of colon cancer Narrative/Plan: The patient had early stage disease, but adjuvant chemotherapy not indicated based on stage. He has been on follow-up for the same with no evidence of recurrence Status: Acute Plan: Defer to the admitting service and other consultants for management of his multiple other medical problems
[2017-03-17 20:54] LABS: Glucose,Whole Blood 139 mg/dL (75-99)
[2017-03-18] MEDS: SODIUM CHLORIDE 0.9% 1,000 ML IV SCH ×2 (04:00→21:13)
[2017-03-18] MEDS: HYDROmorphone 1 MG/ML 1 ML SYRINGE IVP PRN ×2 (04:01→08:57)
[2017-03-18] MEDS: INSULIN LISPRO (humaLOG) 300 UNIT/3 ML VIAL SQ SCH ×4 (06:19→21:09)
[2017-03-18 06:41] LABS: Glucose,Whole Blood 93 mg/dL (75-99)
[2017-03-18 06:44] LABS: Anion Gap 9 mmol/L; Blood Urea Nitrogen 18 mg/dL (9-20); Calcium 8.1 mg/dL (8.4-10.2); Carbon Dioxide 20 mmol/L (22-30); Chloride 105 mmol/L (98-107); Glucose 99 mg/dL (74-99); Non-African American GFR(MDRD) >60 (>60 ml/min/1.73 sqM); Potassium 4.6 mmol/L (3.5-5.1); Sodium 134 mmol/L (137-145)
[2017-03-18] MEDS: IPRATROPIUM-ALBUTEROL 3 ML NEB IH SCH ×4 (08:36→20:40)
[2017-03-18] MEDS: BUDESONIDE 0.5 MG/2 ML NEBU INHALATION SCH ×2 (08:36→20:40)
[2017-03-18] MEDS: FAMOTIDINE 20 MG TAB PO SCH ×2 (08:49→21:10)
[2017-03-18] MEDS: DIVALPROEX 500 MG TABLET.DR PO SCH ×2 (08:49→21:10)
[2017-03-18] MEDS: ENOXAPARIN 40 MG/0.4 ML SYRINGE SQ SCH ×2 (08:49→21:10)
[2017-03-18] MEDS: carBAMazepine 400 MG TAB.ER.12H PO SCH ×2 (08:49→21:10)
[2017-03-18] MEDS: AZITHROMYCIN 500 MG TAB PO SCH (08:49)
[2017-03-18] MEDS: predniSONE 20 MG TAB PO SCH (08:49)
[2017-03-18] MEDS: METOPROLOL SUCCINATE (ER) 25 MG TAB.ER.24H PO SCH (08:50)
--- NOTE | 2017-03-18 10:02 | P.PN ---
Subjective Principal diagnosis: This is a 67-year-old male seen in consultation because of hyponatremia, etiology being hypovolemic. He has responded very well to normal saline. Sodium improved from 128 on 03/15/2017 to 134 yesterday and remains the same this morning dated 03/18/2017. He complains of less than optimal appetite, no dizziness. He is been coughing and has some left-sided chest pain where he had chest tubes previously. He has a dressing there. Is very depressed and admits to at because of the recent diagnosis of lung cancer. No nausea vomiting diarrhea abdominal pain. Objective - Vital Signs Vital signs: Vital Signs Temp 97.4 F L 03/18/17 07:55 Pulse 96 03/18/17 08:49 Resp 16 03/18/17 07:55 BP 126/66 03/18/17 07:55 Pulse Ox 92 L 03/18/17 08:36 Intake & Output 03/17/17 03/18/17 03/18/17 18:59 06:59 18:59 Intake Total 50 240 Output Total 1180 350 Balance -1130 -350 240 Weight 75.1 kg Intake: IV 50 Oral 0 240 Output: Urine 1180 350 Other: Voiding Method Urinal Urinal # Voids 2 1 # Bowel Movements 0 1 On examination is awake alert oriented. HEENT exam no JVP neck is supple no facial asymmetry Lungs are significant for by a lateral crackles more on the left than on the the right. No dullness percussion Heart sounds are unremarkable no murmur rub gallop Abdomen soft nontender no organomegaly ascites masses Extremity exam was no edema Neurologically awake alert oriented No focal motor deficit. - Labs CBC & Chem 7: 03/17/17 05:41 03/18/17 05:31 Labs: Abnormal Lab Results - Last 24 Hours (Table) 03/17/17 03/18/17 Range/Units 20:26 05:31 Sodium 134 L (137-145) mmol/L Carbon Dioxide 20 L (22-30) mmol/L POC Glucose (mg/dL) 139 H (75-99) mg/dL Calcium 8.1 L (8.4-10.2) mg/dL Assessment and Plan Plan: Impression 1. Hyponatremia secondary to volume depletion, responding to IV normal saline. Sodium improved from 120-134 yesterday and remained same today. 2. Recent diagnosis of squamous of CVA left lung status post wedge resection 3. Past history of colon cancer 2015 with resection Recommendation. Will maintain his IV fluids for right now until his oral intake is adequate. Check orthostatic changes.
[2017-03-18 11:27] LABS: Glucose,Whole Blood 151 mg/dL (75-99)
--- NOTE | 2017-03-18 15:00 | PN ---
PROGRESS NOTE DATE OF SERVICE: 03/18/2017 INTERVAL HISTORY: He was seen on March 18, 2017. He has been hemodynamically stable. He continues to have some shortness of breath and chest pain. PHYSICAL EXAMINATION: On physical examination, vitals are stable. He is a afebrile. His chest reveals decreased breath sounds with prolonged expiration. No clear wheeze. Cardiovascular system reveals an S1, S2. Abdomen is soft. There is no edema. LABORATORY DATA: Labs reviewed. IMPRESSION: At this time is: 1. Status post left upper lobe resection for squamous cell cancer of the lung. 2. Bibasilar atelectatic changes versus infiltrates for which he has undergone a bronchoscopy, did not see any microbiological cultures pending from the bronchoscopy which will follow up on that and have Infectious disease further evaluate the patient to decide if the patient would need continuation of his antibiotics at this time. 3. Chronic obstructive pulmonary disease for which he is doing fair at this time. 4. Tension pneumothorax on the left which is status post VATS procedure and chest tubes have been removed. MMODL / IJN: [id number] /
--- NOTE | 2017-03-18 15:55 | P.PN ---
Subjective Patient was admitted for iatrogenic tension pneumothorax, left upper lobe mass, bilateral pneumonia, chronic hypoxic respiratory failure, severe COPD andemphysema, hemoptysis. 03/15/2017 Patient is doing much better today but the his sodium has gone down I am not sure about the exact etiology of low-sodium probably labyrinthine will repeat the sodium tomorrow we'll check with the [facility] thoracic surgery regarding further recommendations possibly of discharge tomorrow to subacute rehabitation. 03/16/2017 Patient had minimal hemoptysis today, patient is receiving blood transfusion ordered by pulmonary. Patient is going for repeat bronchoscopy tomorrow. 03/17/2017 Patient underwent bronchoscopy today, patient is coughing up bloody and dark sputum. Patient is wheezing little bit crackles improved March 18 2017 Significant overnight events, although there is no significant improvement in shortness of breath either. Patient was evaluated by oncology. denied any short of breath denied any abdominal pain denied any nausea vomiting. Continuing antibiotics close clinical monitoring. Objective - Vital Signs Vital signs: Vital Signs Temp 97.4 F L 03/18/17 07:55 Pulse 100 03/18/17 12:00 Resp 16 03/18/17 08:00 BP 126/66 03/18/17 07:55 Pulse Ox 92 L 03/18/17 08:36 Intake & Output 03/17/17 03/18/17 03/18/17 18:59 06:59 18:59 Intake Total 50 462 Output Total 1180 350 Balance -1130 -350 462 Weight 75.1 kg Intake: IV 50 Oral 0 462 Output: Urine 1180 350 Other: Voiding Method Urinal Urinal Urinal # Voids 2 1 # Bowel Movements 0 1 - Exam Patient is lying in the bed comfortably, no acute distress, awake alert and oriented.. HEENT: Normocephalic. Neck is supple. Pupils reactive. Nostrils clear. Oral cavity is moist. Ears reveal no drainage. Neck reveals no JVD, carotid bruits, or thyromegaly. CHEST EXAMINATION: Trachea is central. Symmetrical expansion. Crackles improved but does have significant expiratory wheezing CARDIAC: Normal S1, S2 with no gallops. No murmurs ABDOMEN: Soft. Bowel sounds normal. No organomegaly. No abdominal bruits. Extremities reveal no edema. No clubbing or cyanosis Neurologically awake, alert, oriented x3 with well-coordinated movements. Skin: no rash or skin lesions Musculoskeletal: no joint swelling or deformity. - Labs CBC & Chem 7: 03/17/17 05:41 03/18/17 05:31 Labs: Abnormal Lab Results - Last 24 Hours (Table) 03/17/17 03/18/17 03/18/17 Range/Units 20:26 05:31 11:18 Sodium 134 L (137-145) mmol/L Carbon Dioxide 20 L (22-30) mmol/L POC Glucose (mg/dL) 139 H 151 H (75-99) mg/dL Calcium 8.1 L (8.4-10.2) mg/dL Assessment and Plan Plan: Left-sided pneumothorax followed by biopsy. Iatrogenic: Chest tube was removed patient is fairly doing well but does have still with of wheezing and decreased air entry into bilateral lung love. Bilateral pneumonia: Patient is on ceftriaxone and azithromycin. Macrocytic anemia Hypovolemic hyponatremia did improve Severe COPD with acute exacerbation Chronic hypoxic respiratory failure History of colon cancer status post resection History of PA GERD Chronic atrial fibrillation. 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 DVT prophylaxis Left upper lobe lung nodule status post CT-guided biopsy initially. 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
--- NOTE | 2017-03-18 16:18 | XR ---
EXAMINATION TYPE: XR chest 1V DATE OF EXAM: 03/18/2017 COMPARISON: 03/17/2017 INDICATION: Short of breath TECHNIQUE: Single frontal view of the chest is obtained. FINDINGS: The heart size is normal. The pulmonary vasculature is prominent. Suspicious infiltrate left upper lobe is not identified. There is diffuse increased lung markings mos t likely on the basis of pulmonary edema. Pulmonary fibrosis could be considered. IMPRESSION: 1. Findings suggestive for pulmonary edema. 2. Left upper lobe spiculation is less apparent. Continued follow-up is recommended.
[2017-03-18 16:35] LABS: Glucose,Whole Blood 137 mg/dL (75-99)
[2017-03-18 20:49] LABS: Glucose,Whole Blood 97 mg/dL (75-99)
[2017-03-18] MEDS: HYDROcodone/APAP 7.5-325MG 1 EACH TAB PO PRN (21:17)
--- NOTE | 2017-03-18 22:33 | CONS ---
CONSULTATION DATE OF SERVICE: 03/18/2017 REASON FOR CONSULTATION: Infection and antibiotic recommendation. HISTORY OF PRESENT ILLNESS: The patient is a 67-year-old male with a past medical history significant for stage II colon cancer, status post resection, no chemotherapy. The patient recently noticed to have a left upper lobe nodule on a CT scan done in January of 2017 for which the patient did have a PET scan that was also suspicious. The patient did have a CT- guided biopsy of the left lung nodule. This has led to a pneumothorax for which the patient has been transferred to the [facility], subsequently evaluated by CT surgery and the patient did have a chest tube placement. The patient also underwent a fluoroscopic wedge biopsy of the left lung noted on 03/10/2017 and this confirmed the diagnosis of squamous cell carcinoma. The patient did have a pleural effusion, did require thoracentesis x2 and the chest tube has been recently discontinued. The patient has been complaining of some hemoptysis and the patient did have bronchoscopy done by Dr. Nazario and a bronchial lavage; however, no cultures could be seen in the micro section. The patient did have a chest x-ray done this morning which shows the heart size was normal. Pulmonary vascularization was prominent and the findings suggestive of pulmonary edema and no evidence of any consolidation. The patient has been afebrile throughout his hospital stay and his white count remains to be normal. The patient has been on IV Rocephin and Zithromax since admission for almost 2 weeks. ID was consulted today due to the need for continued antibiotic. The patient did mention that overall his breathing has been improving. He did have some cough with minimal hemoptysis. No purulent sputum, though. Pain to the left lower chest at the site of chest tube seemed to slowly improving with the pain medication. Denies having any URI symptoms. No nausea. No vomiting. No abdominal pain or any diarrhea. REVIEW OF SYSTEMS: CONSTITUTIONAL: Positive for weakness and no fever. EYES: No complaint. ENT: No complaint. RESPIRATORY: As per HPI. CARDIOVASCULAR: No complaint. GENITOURINARY: No complaint. GASTROINTESTINAL: No complaint. MUSCULOSKELETAL: No complaint. INTEGUMENTARY: No complaint. PSYCHOLOGICAL: No complaint. ENDOCRINE: No complaint. NEUROLOGIC: No complaint. PAST MEDICAL HISTORY: Significant for stage II colon cancer. The patient has history of atrial fibrillation, COPD, CVA, TIA, gastroesophageal reflux disease, hypertension, hyperlipidemia, [place], seizure disorder and renal insufficiency. PAST SURGICAL HISTORY: Laparoscopic sigmoid colectomy, left hand surgery, bilateral cataract surgery and colonoscopy. SOCIAL HISTORY: Remote history of smoking. No drinking or drug use. FAMILY HISTORY: Father with history of CVA and TIA and mother with history of cancer. ALLERGIES: No known drug allergies. MEDICATION: Include the patient is currently on: 1. Tylenol. 2. [place]gwick. 3. DuoNeb. 4. Xanax. 5. Zithromax. 6. Pulmicort. 7. Tegretol. 8. Rocephin. 9. Tambocor. 10.Lovenox. 11.Pepcid. 12.Dilaudid. 13.Humalog. 14.Toprol-XL. 16.Zofran. 17.Prednisone. 18.Flomax. EXAMINATION: Blood pressure is 109/51 with a pulse of 96, temperature of 98. He is 96% on 3L nasal cannula. GENERAL DESCRIPTION: An elderly male lying in bed in no distress. No tachypnea or accessory muscle of respiration use. HEENT: Shows pallor. No scleral icterus. Oral mucosa is dry. NECK: Trachea is central. No thyromegaly. LUNGS: Unlabored breathing with decreased breath sounds at the bases. No wheeze. HEART: S1, S2. Regular rate and rhythm. ABDOMEN: Soft. No tenderness. No guarding or rigidity. EXTREMITIES: No edema of feet. SKIN: No rash or mass palpable. NEUROLOGICAL: Patient is awake, alert, oriented x3. Mood and affect normal. LABS: Hemoglobin is 11.1, white count 4.6. BUN of 18, creatinine 0.90. White count has been normal. though the cultures were negative. Stool for occult blood was negative. Chest tube already mentioned above. DIAGNOSTIC IMPRESSION: Patient admitted to the hospital after the patient did have iatrogenic pneumothorax after a CT-guided lung nodule biopsy. The patient is status post chest tube placement and also status post right lung biopsy. Did have a bronchoscopy done presently; however, no bronch cultures. The patient with no blood culture during this admission. The patient has been afebrile and his white count remains to be normal and received about 2 weeks of antibiotic therapy. This should be more than enough for any associated pneumonia. Clinically, suspicions for ongoing pneumonia remain to be low. PLAN: 1. Recommend discontinuation of Rocephin and Zithromax. 2. The patient will be monitored closely off antibiotic therapy. If the patient develops any fever or any worsening respiratory status, appropriate cultures will obtained the patient started on appropriate antibiotics at that point. Thank you for this consultation. Will follow this patient along with you. LILIA / ASHTYN: [id number] / MTDD
[2017-03-19] MEDS: HYDROcodone/APAP 7.5-325MG 1 EACH TAB PO PRN ×5 (01:11→23:40)
[2017-03-19] MEDS: INSULIN LISPRO (humaLOG) 300 UNIT/3 ML VIAL SQ SCH ×4 (06:28→21:19)
[2017-03-19 06:31] LABS: Glucose,Whole Blood 89 mg/dL (75-99)
[2017-03-19] MEDS: TAMSULOSIN 0.4 MG CAP.ER.24H PO SCH (07:54)
[2017-03-19] MEDS: DIVALPROEX 500 MG TABLET.DR PO SCH ×2 (07:54→20:05)
[2017-03-19] MEDS: carBAMazepine 400 MG TAB.ER.12H PO SCH ×2 (07:54→20:05)
[2017-03-19] MEDS: FAMOTIDINE 20 MG TAB PO SCH ×2 (07:55→20:05)
[2017-03-19] MEDS: ENOXAPARIN 40 MG/0.4 ML SYRINGE SQ SCH (07:55)
[2017-03-19] MEDS: METOPROLOL SUCCINATE (ER) 25 MG TAB.ER.24H PO SCH (07:55)
[2017-03-19] MEDS: predniSONE 20 MG TAB PO SCH (07:56)
[2017-03-19] MEDS: IPRATROPIUM-ALBUTEROL 3 ML NEB IH SCH ×4 (08:44→21:09)
[2017-03-19] MEDS: BUDESONIDE 0.5 MG/2 ML NEBU INHALATION SCH ×2 (08:44→21:09)
--- NOTE | 2017-03-19 10:53 | P.PN ---
Subjective Patient was admitted for iatrogenic tension pneumothorax, left upper lobe mass, bilateral pneumonia, chronic hypoxic respiratory failure, severe COPD andemphysema, hemoptysis. 03/15/2017 Patient is doing much better today but the his sodium has gone down I am not sure about the exact etiology of low-sodium probably labyrinthine will repeat the sodium tomorrow we'll check with the [facility] thoracic surgery regarding further recommendations possibly of discharge tomorrow to subacute rehabitation. 03/16/2017 Patient had minimal hemoptysis today, patient is receiving blood transfusion ordered by pulmonary. Patient is going for repeat bronchoscopy tomorrow. 03/17/2017 Patient underwent bronchoscopy today, patient is coughing up bloody and dark sputum. Patient is wheezing little bit crackles improved March 18 2017 Significant overnight events, although there is no significant improvement in shortness of breath either. Patient was evaluated by oncology. 03/19/2017 Patient has no significant improvement patient is still short of breath still coughing up brownish sputum denied any abdominal pain denied any nausea vomiting. Continuing antibiotics close clinical monitoring. Objective - Vital Signs Vital signs: Vital Signs Temp 96.8 F L 03/19/17 08:00 Pulse 92 03/19/17 09:02 Resp 16 03/19/17 08:00 BP 133/62 03/19/17 08:00 Pulse Ox 95 03/19/17 08:45 Intake & Output 03/18/17 03/19/17 03/19/17 18:59 06:59 18:59 Intake Total 684 1100 240 Output Total 500 Balance 684 600 240 Weight 75.3 kg Intake: IV 500 .9 500 Oral 684 600 240 Output: Urine 500 Other: Voiding Method Urinal Urinal # Voids 2 - Exam Patient is lying in the bed comfortably, no acute distress, awake alert and oriented.. HEENT: Normocephalic. Neck is supple. Pupils reactive. Nostrils clear. Oral cavity is moist. Ears reveal no drainage. Neck reveals no JVD, carotid bruits, or thyromegaly. CHEST EXAMINATION: Trachea is central. Symmetrical expansion. Patient was sounds are rhonchorous and bibasilar crackles were heard CARDIAC: Normal S1, S2 with no gallops. No murmurs ABDOMEN: Soft. Bowel sounds normal. No organomegaly. No abdominal bruits. Extremities reveal no edema. No clubbing or cyanosis Neurologically awake, alert, oriented x3 with well-coordinated movements. Skin: no rash or skin lesions Musculoskeletal: no joint swelling or deformity. - Labs CBC & Chem 7: 03/17/17 05:41 03/18/17 05:31 Labs: Abnormal Lab Results - Last 24 Hours (Table) 03/18/17 03/18/17 Range/Units 11:18 16:28 POC Glucose (mg/dL) 151 H 137 H (75-99) mg/dL Assessment and Plan Plan: Left-sided pneumothorax followed by biopsy. Iatrogenic: Chest tube was removed patient is fairly doing well but does have still with of wheezing and decreased air entry into bilateral lung love. Bilateral pneumonia: Patient is on ceftriaxone and azithromycin. Macrocytic anemia Hypovolemic hyponatremia did improve Severe COPD with acute exacerbation Chronic hypoxic respiratory failure History of colon cancer status post resection History of CA GERD Chronic atrial fibrillation. 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 DVT prophylaxis Left upper lobe lung nodule status post CT-guided biopsy initially. 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
[2017-03-19] MEDS ORDERED: FUROSEMIDE 10 MG/ML 2 ML VIAL IV ONE (11:57)
--- NOTE | 2017-03-19 11:57 | P.PN ---
Subjective Principal diagnosis: This is a 67-year-old male seen in consultation because of hyponatremia, etiology being hypovolemic. He has responded very well to normal saline. Sodium improved from 128 on 03/15/2017 to 134 on 03/17/2017 day before yesterday and remains the same dated 03/18/2017. He has been having hemoptysis and is hardly eating. No nausea vomiting diarrhea. No dizziness is able to walk. His also wheezing quite a bit this morning on 03/19/2017.He is been coughing and has some left-sided chest pain where he had chest tubes previously. He has a dressing there. His 24-hour output has been recorded 15 30 mL. He was on IV fluids but that has been discontinued. Is very depressed and admits to at because of the recent diagnosis of lung cancer. No nausea vomiting diarrhea abdominal pain. Objective - Vital Signs Vital signs: Vital Signs Temp 96.8 F L 03/19/17 08:00 Pulse 92 03/19/17 09:02 Resp 16 03/19/17 11:02 BP 133/62 03/19/17 08:00 Pulse Ox 95 03/19/17 08:45 Intake & Output 03/18/17 03/19/17 03/19/17 18:59 06:59 18:59 Intake Total 684 1100 240 Output Total 500 Balance 684 600 240 Weight 75.3 kg Intake: IV 500 .9 500 Oral 684 600 240 Output: Urine 500 Other: Voiding Method Urinal Urinal Urinal # Voids 2 On examination is awake alert oriented but looks depressed. HEENT exam JVP is elevated about 6-7 cm about sternal angle Neck is supple no facial asymmetry Lungs are significant for bilateral wheezing and additional coarse crackle. Heart sounds are unremarkable no murmur rub gallop. He is in atrial fibrillation. Abdomen soft nontender no organomegaly ascites masses Extremity exam reveals no edema Neurologically awake alert oriented. No focal motor deficit. - Labs CBC & Chem 7: 03/17/17 05:41 03/18/17 05:31 Labs: Abnormal Lab Results - Last 24 Hours (Table) 03/18/17 Range/Units 16:28 POC Glucose (mg/dL) 137 H (75-99) mg/dL Assessment and Plan Plan: Impression 1. Hyponatremia secondary to volume depletion, responding to IV normal saline. Sodium improved from 120-134 yesterday and remained same for last 2 days. No labs are available this morning. 2. Recent diagnosis of squamous of CVA left lung status post wedge resection, severe COPD, left-sided pneumothorax with chest tube that has been removed now and has a dressing. 3. Past history of colon cancer 2014 with resection. 4. Chest x-ray possible pulmonary edema Recommendation. Agree with discontinuation obvious fluid. The chest x-ray is somewhat worse Will therefore give him small dose of Lasix and watch his sodium. Continue Check orthostatic changes. Continue monitoring labs
[2017-03-19] MEDS: AMOXIC-POT CLAV 875-125MG 1 EACH TAB PO SCH ×2 (12:15→20:04)
[2017-03-19 12:22] LABS: Glucose,Whole Blood 141 mg/dL (75-99)
--- NOTE | 2017-03-19 16:25 | PN ---
PROGRESS NOTE DATE OF SERVICE: 03/19/17 INTERVAL HISTORY: He was seen again on March 19, 2017. He has been having some bright red blood when he coughs. PHYSICAL EXAMINATION: Blood pressure 99/65, respiratory rate of 20, pulse rate of 108, O2 saturation is 97% on 3 L nasal cannula. HEENT: Unremarkable. Chest reveals scattered rhonchi. Cardiovascular system is S1, S2. ABDOMEN: Soft. There is no edema. Sugar is 141. IMPRESSION: At this time: 1. Squamous cell cancer status post left upper lobectomy. 2. Tension pneumothorax status post chest tube placement and VATS procedure. 3. Hemoptysis status post bronchoscopy. 4. Chronic obstructive pulmonary disease with exacerbation. At this point in time, I would stop his anticoagulation as he has significant hemoptysis, continue him on amoxicillin with clavulanate. Continue inhaled steroids. May need to increase the systemic steroids if his hemoptysis does not resolve with stopping anticoagulation. Depending on how he does, we should make further changes to his care. MMODL / IJN: [id number] /
[2017-03-19 16:29] LABS: Glucose,Whole Blood 134 mg/dL (75-99)
[2017-03-19] MEDS: SODIUM CHLORIDE 0.9% 1,000 ML IV SCH (17:27)
[2017-03-19 20:56] LABS: Glucose,Whole Blood 87 mg/dL (75-99)
[2017-03-20] MEDS: HYDROcodone/APAP 7.5-325MG 1 EACH TAB PO PRN ×4 (04:11→22:50)
[2017-03-20 06:09] LABS: Anisocytosis Moderate; CHCM 30.1; HCT 27.8 % (39.0-53.0); HDW 3.67; HGB 8.7 gm/dL (13.0-17.5); Hypochromasia Marked; MCH 35.5 pg (25.0-35.0); MCHC 31.5 g/dL (31.0-37.0); MCV 112.8 fL (80.0-100.0); Mean Platelet Volume 8.4; Poikilocytosis Slight; RBC 2.46 m/uL (4.30-5.90); RDW 20.4 % (11.5-15.5); WBC 4.3 k/uL (3.8-10.6)
[2017-03-20] MEDS: INSULIN LISPRO (humaLOG) 300 UNIT/3 ML VIAL SQ SCH ×4 (06:12→21:50)
[2017-03-20 06:14] LABS: Glucose,Whole Blood 83 mg/dL (75-99)
--- NOTE | 2017-03-20 06:14 | PN ---
PROGRESS NOTE DATE OF SERVICE: 03/19/2017 REASON FOR FOLLOWUP: Pneumonia. INTERVAL HISTORY: The patient is afebrile. Has been breathing comfortably. He did have a cough with hemoptysis with more bright red blood today. No chest pain. No abdominal pain. No diarrhea. PHYSICAL EXAMINATION: On examination, blood pressure is 138/74 with a pulse of 98. Temperature is 98. He is 92% on 4 L nasal cannula. General description is an elderly male, lying in bed, in no distress. RESPIRATORY SYSTEM: Unlabored breathing. Coarse breath sounds bilaterally. HEART: S1, S2. Regular rate and rhythm. ABDOMEN: Soft, no tenderness. LABS: No new labs have been obtained today. DIAGNOSTIC IMPRESSION AND PLAN: Patient admitted to the hospital with tension pneumothorax, status post chest tube placement. Did have a wedge biopsy of the left upper lobe nodule and bronchoscopy hemoptysis. No BAL culture has been sent. The patient has been afebrile. White count has been normal. Augmentin was added by the admitting team. Sputum culture will be requested and will monitor closely. Continue supportive care. MMODL / IJN: [id number] /
[2017-03-20 06:26] LABS: Anion Gap 7 mmol/L; Blood Urea Nitrogen 12 mg/dL (9-20); Carbon Dioxide 21 mmol/L (22-30); Chloride 109 mmol/L (98-107); Glucose 75 mg/dL (74-99); Non-African American GFR(MDRD) >60 (>60 ml/min/1.73 sqM); Potassium 4.4 mmol/L (3.5-5.1); Sodium 137 mmol/L (137-145)
[2017-03-20 06:32] LABS: Macrocytosis Marked
[2017-03-20] MEDS: BUDESONIDE 0.5 MG/2 ML NEBU INHALATION SCH ×2 (09:11→19:45)
[2017-03-20] MEDS: IPRATROPIUM-ALBUTEROL 3 ML NEB IH SCH ×4 (09:11→19:45)
[2017-03-20] MEDS: ALPRAZolam 0.25 MG TAB PO PRN ×2 (09:35→21:55)
[2017-03-20] MEDS: TAMSULOSIN 0.4 MG CAP.ER.24H PO SCH (09:35)
[2017-03-20] MEDS: AMOXIC-POT CLAV 875-125MG 1 EACH TAB PO SCH ×2 (09:36→21:49)
[2017-03-20] MEDS: carBAMazepine 400 MG TAB.ER.12H PO SCH ×2 (09:36→21:49)
[2017-03-20] MEDS: DIVALPROEX 500 MG TABLET.DR PO SCH ×2 (09:37→21:49)
[2017-03-20] MEDS: FAMOTIDINE 20 MG TAB PO SCH ×2 (09:37→21:48)
[2017-03-20] MEDS: predniSONE 20 MG TAB PO SCH (09:37)
[2017-03-20] MEDS: METOPROLOL SUCCINATE (ER) 25 MG TAB.ER.24H PO SCH (09:37)
--- NOTE | 2017-03-20 10:09 | P.PN ---
Subjective Principal diagnosis: Tension pneumothorax, left upper lobe mass, bilateral pneumonia, chronic hypoxic respiratory failure, severe COPD andemphysema, hemoptysis 03/20/17- patient is being seen examined and evaluated today on rounds. Patient has no significant improvement patient. He continues on 3 L of supplemental oxygen via nasal cannula. Continues with shortness of breath with exertion and conversations. Patient continues to have brown/maroon and blood tinged sputum. Hemoglobin is 8.7 today. Hemodynamically stable. previous chest tube site clean dry and intact. Patient continues to use IS, encourged to increase activity as tolerated. All labs and reports reviewed. 03/18/17-03/19/17- See Dr. Edgar Mcallister notes for weekend coverage. 03/17/17- patient is evaluated and examined on rounds. patient is s/p bronchoscopy, please see procedure notes for details. Continues on 3L of supplemental oxygen, Continues with blood tinged sputum intermittently. hgb stable today. previous chest tube site clean dry and intact. Patient continues to use IS, encourged to increase activity as tolerated. All labs and reports reviewed. 03/16/17- patient is being evaluated and examined today on rounds. Patient is resting in bed on 3 L of supplemental oxygen, he is quite fatigued. All labs and reports were reviewed. His hemoglobin is noted to drop down to 7.5 today and his sodium is 127, potassium 4.7. Patient has been coughing up blood- tinged sputum he feels very congested. Chest x-ray from today does show chronic interstitial pulmonary fibrosis and COPD with no sizable pneumothorax, small left effusion and pleural based thickening along the lateral chest wall as well as a spiculated mass in the left upper lobe. The patient is on scheduled Lovenox. 03/15/17- patient is being evaluated and examined and seen today on rounds. Apparently the patient was having some progressive shortness of breath yesterday throughout the day and into the evening however he states it has stable this morning. Patient is encouraged to participate in PT and OT. Chest tube site remains clean dry and intact. Patient did undergo a barium swallow, yesterday which was negative. Upon evaluation the patient is resting up in bed on 3 L of supplemental oxygen. States he does have a congested cough. He is afebrile, no further complaints. 03/14/17- patient is being seen in evaluated and examined today on rounds. Patient did have chest tube removal yesterday. Dressing is clean dry and intact. Chest x-ray has been reviewed and shows no sizable pneumothorax, spiculated mass in the left upper lobe, pulmonary fibrosis and changes of COPD. Patient encouraged to use incentive spirometer and increase activity as tolerated. He is afebrile, no overnight events. 03/13/17- patient is being seen examined and evaluated today on rounds. Patient has under his VATS resection on Monday. His breathing has improved. He has no hemoptysis. Chest tube in place and is currently clamped. Chest x-ray from this morning does show a stable interstitial changes with findings suggestive pulmonary fibrosis. Superimposed acute interstitial process is not excluded. Approximate 10% left-sided pneumothorax. Stable spiculated mass left upper lobe. On examination the patient's resting up in bed on room air he is afebrile no further complaints. 03/12/2017 patient seen and evaluated examined during the rounds he is having issues associated with cough congestion which is slightly better continued to have a pain at surgical site but is manageable with medication, he has problem with urinary retention requiring straight cath and initiation of Flomax which has been started and is being monitored and observed that regard. He has been advised to continue deep breathing exercises incentive spirometry overall is slightly improved compared to prior exam no more hemoptysis seen 03/11/2017, patient seen and evaluated examined in the selective care patient has successfully underwent wedge resection of the left upper lobe firm nodule which is about 2 cm in size operative reports and the primary data has been reviewed and grossly negative margins were noted the nodules been sent for histopathology final results are pending. Patient is complaining of pleuritic chest pain in the left side which is stable no pain medicine seems to be effective there is a pleural VAC is present on the right side and no air leak is present about 350 mL of dark pleural fluid has been accumulated. Patient remains on [place] antibiotics does feel some congestion and cough however no significant sputum production is seen he has baseline shortness of breath which is overall stable patient has been consult at length about importance to using IES continued to do deep breathing exercise continue pain medicine maintain patient on DVT and peptic ulcer disease prophylaxis 03/10/17- seen and examined and evaluated today on the sixth floor. Upon examination the patient is resting up in bed on room air with supplemental oxygen laying next to him. He states that he uses 2 L of supplemental oxygen off and on for comfort throughout the day when he gets winded. Patient states he does get short of breath and winded with activity and exertion. Oxygen saturations have been maintained in the mid to high 90s. Patient has been nothing by mouth since midnight for VATS procedure to be done today by cardiothoracic surgery. All labs and reports have been reviewed. 03/09/17- patient is being seen examined and evaluated today on the sixth floor. Upon examination the patient is resting up in bed on 2 L of supplemental oxygen via nasal cannula, oxygen saturations in the high 90s. Chest tube site remains clean dry and intact. Patient is being scheduled to undergo VATS procedure tomorrow with cardiothoracic surgery. He is afebrile, no overnight events. 03/08/17 patient is being seen examined and evaluated today on the sixth floor. His chest tube was removed yesterday. Dressing is clean dry and intact. Chest x-ray was reviewed from this morning does show that the left-sided chest tube has been removed without evidence for recurrent pneumothorax. Small amount of subcutaneous emphysema seen along the left chest wall. Improving left basilar infiltrate and/or atelectasis. Stable chronic density in the right upper lobe. Upon examination patient sitting up in bed on room air. He has been using supplemental oxygen on and off per the nursing staff for comfort. His oxygen saturations have remained in the mid 90s. He is afebrile, no overnight events. Patient is scheduled to go for a left video-assisted thoracoscopic wedge biopsy on Monday. 03/07/2017, patient seen and evaluated exam and on 6 floor he is breathing comfortably less short of breath his cuff congestion has improved he is not coughing purulent sputum anymore hemoptysis has resolved his chest tube has been placed on water seal a chest x-ray performed right in front of me which I have reviewed it no pneumothorax is seen on water seal. Patient is afebrile with the FiO2 is down to 2 L now and sats are 98% hemodynamic status stable except atrial fibrillation with controlled ventricular response on telemetry, the biopsy results are nondiagnostic awaiting further recommendation from cardiothoracic surgery in the meantime we'll taper down the steroids further and hopefully discontinue and next 24 hours 03/06/2017, patient seen and evaluated examined care plan discussed with the nursing staff at length biopsy results are obtained [facility] it's a nondiagnostic tissue. Patient is breathing definitely better he still have left-sided chest tube no a leak is present subcu continue him emphysema which was seen previously is almost resolved no evidence of active hemoptysis seen patient remains in atrial fibrillation with controlled ventricular response she is on subcu Lovenox is also on broad-spectrum antibiotics and oral prednisone and seems to be tolerating very well, we'll start tapering down the steroids lowered down to 30 mg daily continue other antibiotics, awaiting further recommendation from thoracic surgery patient may very well and been getting the VATS procedure with wedge resection of left upper lobe nodule and and mediastinoscopy 03/05/17, patient seen and evaluated examined today some level of pain is present on the left thoracic wall subcu emphysema which was noted previously has improved significantly patient does have intermittent cough and chest tightness proceeded he has improved though his been getting [place] and as needed Dilaudid for adequate pain control. His chest x-ray done today failed to reveal significant pneumothorax a questionable left apical pneumothorax cannot be excluded along with some interstitial edema and basal atelectasis likely related to poor respiratory effort is still waiting for the biopsy results from [facility] with further recommendations pending cardiothoracic surgery is following as well, no more evidence of any hemoptysis is been seen heart rate is better under control but however rhythm remains atrial fibrillation with controlled ventricular response 03/04/2017, patient seen and evaluated examined in ICU he is awake and alert breathing relatively comfortably would get anxious and agitated events from yesterday and last night has been noted, patient to have left left tension pneumothorax as the prior pigtail rest tube was plugged requiring emergent placement off a new 28-Tajik chest tube by me in a stable position. Able to evacuate the tension pneumothorax no more bubbling was seen however patient was trying to get up late last night and to use the urinal disconnected himself over the chest tube developed shortness of breath later on the tube has been reconnected by nurse staff had no more air leak is seen in the pleural VAC. Patient has episodes of intermittent anxiety we will start him on low-dose Xanax patient had low magnesium which is being repleted he is on diet tolerated well patient has been evaluated by Dr. Persaud from thoracic surgery awaiting biopsy results with further interventions pending. His chest x-ray from earlier this morning reviewed no pneumothorax is seen chest tube was stable the right perihilar pneumonia and left lower lobe pneumonia not much change overall stable on antibiotics His labs from today's reviewed borderline hyponatremia noted he is anemic with hemoglobin of 9.6 we'll monitor observe closely Critical care time spent 35 minutes Mr. Davila is a 67-year-old male with history of severe COPD emphysema and chronic persistent asthma patient also has history of chronic atrial fibrillation and has been attempted on anticoagulants but couldn't tolerate it because of the GI bleeding has been off of blood thinners patient is somewhat unreliable in terms of follow-up he does have a history of prior pneumonia and right-sided nodule however that did resolve though. Patient was sent from the primary care provider to my office with ongoing hemoptysis and also found to have abnormal chest x-ray and CAT scan in fact patient had a PET scan as well which revealed positive uptake in the left upper lobe nodule which was new. Patient also found to have a left upper lobe and right lower lobe infiltrate suggestive of pneumonia given the severe respiratory status patient was considered not to be a candidate for bronchoscopy and biopsies options were discussed with him to optimize therapy and decision was done to admit the patient into the hospital to treat the pneumonia and consideration of biopsy and along the same time. Patient did respond well with the antibiotics with improvement in respiratory status and hemoptysis however interventional radiology was consulted for CT- guided biopsy of left upper lobe nodule they initially attempted a small lymph node on the neck in cervical area which was nondiagnostic followed by CT-guided biopsy of left upper lobe nodule. Patient did have left the pneumothorax which was progressive and eventually giving appearance of a tension pneumothorax requiring emergent placement of a small bore chest tube by interventional radiology the pneumothorax resolved only a small residual 5% pneumothorax was seen subsequent x-ray performed in the afternoon. At that time decision was done to monitor observe and patent patient to be transferred to [facility] for further evaluation and intervention and treatment and possible resection of left upper lobe nodule Objective - Vital Signs Vital signs: Vital Signs Temp 97.1 F L 03/20/17 04:00 Pulse 96 03/20/17 09:11 Resp 18 03/20/17 04:00 BP 130/73 03/20/17 04:00 Pulse Ox 93 L 03/20/17 04:00 Intake & Output 03/19/17 03/20/17 03/20/17 18:59 06:59 18:59 Intake Total 462 600 Output Total 1000 775 Balance -538 -175 Weight 74.8 kg Intake: Oral 462 600 Output: Urine 1000 775 Other: Voiding Method Urinal Urinal # Voids 3 - Exam - Exam - Constitutional General appearance: cooperative, disheveled, mild distress, fatigued - EENT Eyes: EOMI, PERRLA, normal appearance Ears: bilateral: normal - Neck Neck: normal ROM Carotids: bilateral: upstroke normal, bruit absent Thyroid: negative: normal size - Respiratory Respiratory: bilateral: diminished, congested, rhonchi, wheezing, prolonged expiration, no significant subcu emphysema is seen, chest tube has been discontinued . Is clean dry and intact. - Cardiovascular Rhythm: irregularly irregular Heart sounds: normal: S1, S2 - Gastrointestinal General gastrointestinal: decreased bowel sounds, normal bowel sounds, soft - Integumentary Integumentary: normal, normal turgor - Neurologic Neurologic: CNII-XII intact - Musculoskeletal Musculoskeletal: gait normal, generalized weakness, strength equal bilaterally - Psychiatric Psychiatric: A&O x's 3, appropriate affect, intact judgment & insight - Labs CBC & Chem 7: 03/20/17 05:41 03/20/17 05:41 Labs: Abnormal Lab Results - Last 24 Hours (Table) 03/19/17 03/19/17 03/20/17 Range/Units 11:23 16:27 05:41 RBC 2.46 L (4.30-5.90) m/uL Hgb 8.7 L (13.0-17.5) gm/dL Hct 27.8 L (39.0-53.0) % MCV 112.8 H (80.0-100.0) fL MCH 35.5 H (25.0-35.0) pg RDW 20.4 H (11.5-15.5) % Chloride (98-107) mmol/L Carbon Dioxide (22-30) mmol/L POC Glucose (mg/dL) 141 H 134 H (75-99) mg/dL Calcium (8.4-10.2) mg/dL 03/20/17 Range/Units 05:41 RBC (4.30-5.90) m/uL Hgb (13.0-17.5) gm/dL Hct (39.0-53.0) % MCV (80.0-100.0) fL MCH (25.0-35.0) pg RDW (11.5-15.5) % Chloride 109 H (98-107) mmol/L Carbon Dioxide 21 L (22-30) mmol/L POC Glucose (mg/dL) (75-99) mg/dL Calcium 8.0 L (8.4-10.2) mg/dL Assessment and Plan Plan: Assessment Squamous cell lung cancer Bilateral pneumonia with hemoptysis Left upper lobe nodule Left-sided iatrogenic tension pneumothorax status post new 28-Tajik left-sided chest tube and removal of old pigtail catheter Severe COPD with chronic hypoxic respiratory failure Chronic atrial fibrillation Status post VATS procedure Anemia, suspect acute blood loss Hyponatremia Plan Plan is to monitor observe patient in selective care, thoracic surgery consultation, patient's is status post VATS procedure for left upper lobe nodule resection with VATS resection. Oncology on consult for squamous cell lung cancer. We will maintain patient on broad-spectrum antibiotics DVT and peptic ulcer disease prophylaxis for anxiety on on Xanax maintain patient on peptic ulcer disease prophylaxis continue Lovenox for chronic atrial fibrillation for now. we'll do a bedside spirometry patient is being maintained on subcu Lovenox will continue the antibiotics breathing treatment, steroids have been switched to oral. patient will be kept on peptic ulcer disease prophylaxis and supportive care care plan discussed with the nursing staff at length. Increase activity as tolerated. Continue pulmonary hygiene and supportive care. Supplemental oxygen to maintain oxygen saturations greater than 92%. Further recommendations pending. I performed an examination of the patient and discussed their management with the nurse practitioner. I have reviewed the nurse practitioner's note and agree with the documented findings and plan of care.
[2017-03-20] MEDS: SODIUM CHLORIDE 0.9% 1,000 ML IV SCH (11:22)
[2017-03-20 12:01] LABS: Glucose,Whole Blood 109 mg/dL (75-99)
--- NOTE | 2017-03-20 12:40 | P.PN ---
Subjective Patient was admitted for iatrogenic tension pneumothorax, left upper lobe mass, bilateral pneumonia, chronic hypoxic respiratory failure, severe COPD andemphysema, hemoptysis. 03/15/2017 Patient is doing much better today but the his sodium has gone down I am not sure about the exact etiology of low-sodium probably labyrinthine will repeat the sodium tomorrow we'll check with the [facility] thoracic surgery regarding further recommendations possibly of discharge tomorrow to subacute rehabitation. 03/16/2017 Patient had minimal hemoptysis today, patient is receiving blood transfusion ordered by pulmonary. Patient is going for repeat bronchoscopy tomorrow. 03/17/2017 Patient underwent bronchoscopy today, patient is coughing up bloody and dark sputum. Patient is wheezing little bit crackles improved March 18 2017 Significant overnight events, although there is no significant improvement in shortness of breath either. Patient was evaluated by oncology. 03/19/2017 Patient has no significant improvement patient is still short of breath still coughing up brownish sputum 03/20/2017 Patient overall objectively appears to have improved respiratory mae still has significant rhonchorous breath sounds and patient is complaining of pain in the left arm and chest area where he had the VATS procedure denied any abdominal pain denied any nausea vomiting. Continuing antibiotics close clinical monitoring. Objective - Vital Signs Vital signs: Vital Signs Temp 97.4 F L 03/20/17 08:00 Pulse 96 03/20/17 09:11 Resp 20 03/20/17 08:00 BP 151/67 03/20/17 08:00 Pulse Ox 100 03/20/17 08:00 Intake & Output 03/19/17 03/20/17 03/20/17 18:59 06:59 18:59 Intake Total 462 600 Output Total 1000 775 Balance -538 -175 Weight 74.8 kg Intake: Oral 462 600 Output: Urine 1000 775 Other: Voiding Method Urinal Urinal Urinal # Voids 3 - Exam Patient is lying in the bed comfortably, no acute distress, awake alert and oriented.. HEENT: Normocephalic. Neck is supple. Pupils reactive. Nostrils clear. Oral cavity is moist. Ears reveal no drainage. Neck reveals no JVD, carotid bruits, or thyromegaly. CHEST EXAMINATION: Trachea is central. Symmetrical expansion. Patient was sounds are rhonchorous and bibasilar crackles were heard CARDIAC: Normal S1, S2 with no gallops. No murmurs ABDOMEN: Soft. Bowel sounds normal. No organomegaly. No abdominal bruits. Extremities reveal no edema. No clubbing or cyanosis Neurologically awake, alert, oriented x3 with well-coordinated movements. Skin: no rash or skin lesions Musculoskeletal: no joint swelling or deformity. - Labs CBC & Chem 7: 03/20/17 05:41 03/20/17 05:41 Labs: Abnormal Lab Results - Last 24 Hours (Table) 03/19/17 03/20/17 03/20/17 Range/Units 16:27 05:41 05:41 RBC 2.46 L (4.30-5.90) m/uL Hgb 8.7 L (13.0-17.5) gm/dL Hct 27.8 L (39.0-53.0) % MCV 112.8 H (80.0-100.0) fL MCH 35.5 H (25.0-35.0) pg RDW 20.4 H (11.5-15.5) % Chloride 109 H (98-107) mmol/L Carbon Dioxide 21 L (22-30) mmol/L POC Glucose (mg/dL) 134 H (75-99) mg/dL Calcium 8.0 L (8.4-10.2) mg/dL 03/20/17 Range/Units 11:52 RBC (4.30-5.90) m/uL Hgb (13.0-17.5) gm/dL Hct (39.0-53.0) % MCV (80.0-100.0) fL MCH (25.0-35.0) pg RDW (11.5-15.5) % Chloride (98-107) mmol/L Carbon Dioxide (22-30) mmol/L POC Glucose (mg/dL) 109 H (75-99) mg/dL Calcium (8.4-10.2) mg/dL Assessment and Plan Plan: Left-sided pneumothorax followed by biopsy. Iatrogenic: Chest tube was removed patient is fairly doing well but does have still with of wheezing and decreased air entry into bilateral lung love. Bilateral pneumonia: Patient is on ceftriaxone and azithromycin. Macrocytic anemia Hypovolemic hyponatremia did improve Severe COPD with acute exacerbation Chronic hypoxic respiratory failure History of colon cancer status post resection History of RI GERD Chronic atrial fibrillation. 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 DVT prophylaxis Left upper lobe lung nodule status post CT-guided biopsy initially. 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
[2017-03-20] MEDS: PARoxetine 10 MG TAB PO SCH (12:43)
[2017-03-20 17:18] LABS: Glucose,Whole Blood 132 mg/dL (75-99)
[2017-03-20 20:56] LABS: Glucose,Whole Blood 76 mg/dL (75-99)
[2017-03-21] MEDS: HYDROcodone/APAP 7.5-325MG 1 EACH TAB PO PRN ×3 (06:32→20:52)
--- NOTE | 2017-03-21 06:33 | PN ---
PROGRESS NOTE DATE OF SERVICE: 03/20/2017. REASON FOR FOLLOWUP: Pneumonia. INTERVAL HISTORY: The patient is afebrile. He is complaining of some shortness of breath. He did have some cough and hemoptysis. No nausea, no vomiting. No abdominal pain, no diarrhea. PHYSICAL EXAMINATION: Blood pressure is 132/60 with a pulse of 97. Temperature is 97.1. He is 93% on 3 L nasal cannula. General description is an elderly male, lying in bed, in no distress. RESPIRATORY SYSTEM: Unlabored breathing. Coarse breath sounds bilaterally. HEART: S1, S2. Regular rate and rhythm. ABDOMEN: Soft, no tenderness. LABS: Hemoglobin is 8.7, white count of 4.3, BUN of 12 with a creatinine 0.83. Sputum culture obtained yesterday are currently pending. DIAGNOSTIC IMPRESSION AND PLAN: Patient admitted to the hospital with tension pneumothorax status post chest tube placement and did have wedge biopsy of the left upper lobe now with hemoptysis. The patient not running any fever and no elevated white count. Currently on oral Augmentin that will continue while waiting for the sputum culture to finalize. Continue supportive care. MMODL / IJN: [id number] /
[2017-03-21 07:21] LABS: Glucose,Whole Blood 87 mg/dL (75-99)
[2017-03-21] MEDS: INSULIN LISPRO (humaLOG) 300 UNIT/3 ML VIAL SQ SCH ×4 (07:42→21:51)
[2017-03-21] MEDS: DIVALPROEX 500 MG TABLET.DR PO SCH ×2 (07:59→21:58)
[2017-03-21] MEDS: predniSONE 20 MG TAB PO SCH (07:59)
[2017-03-21] MEDS: PARoxetine 10 MG TAB PO SCH (07:59)
[2017-03-21] MEDS: METOPROLOL SUCCINATE (ER) 25 MG TAB.ER.24H PO SCH (07:59)
[2017-03-21] MEDS: AMOXIC-POT CLAV 875-125MG 1 EACH TAB PO SCH ×2 (07:59→20:51)
[2017-03-21] MEDS: carBAMazepine 400 MG TAB.ER.12H PO SCH ×2 (07:59→20:51)
[2017-03-21] MEDS: TAMSULOSIN 0.4 MG CAP.ER.24H PO SCH (07:59)
[2017-03-21] MEDS: FAMOTIDINE 20 MG TAB PO SCH ×2 (08:00→20:51)
[2017-03-21] MEDS: IPRATROPIUM-ALBUTEROL 3 ML NEB IH SCH ×4 (08:22→21:13)
[2017-03-21] MEDS: BUDESONIDE 0.5 MG/2 ML NEBU INHALATION SCH ×2 (08:22→21:20)
--- NOTE | 2017-03-21 11:15 | P.PN ---
Subjective Principal diagnosis: Tension pneumothorax, left upper lobe mass, bilateral pneumonia, chronic hypoxic respiratory failure, severe COPD andemphysema, hemoptysis 03/21/17- patient is being seen examined and evaluated today on rounds. Upon examination patient is currently resting in bed on 3 L of supplemental oxygen via nasal cannula. Patient states he has had some scant rust-colored sputum brought up today with coughing. Sputum production has decreased today. Patient states he feels better than yesterday. Continues to have intermittent pain at his previous surgical site, as needed pain medication has been effective. Patient states he has not increased his activity and he is encouraged to do so. States his appetite has been stable. He is afebrile, no further complaints. All labs and reports have been reviewed. 03/20/17- patient is being seen examined and evaluated today on rounds. Patient has no significant improvement patient. He continues on 3 L of supplemental oxygen via nasal cannula. Continues with shortness of breath with exertion and conversations. Patient continues to have brown/maroon and blood tinged sputum. Hemoglobin is 8.7 today. Hemodynamically stable. previous chest tube site clean dry and intact. Patient continues to use IS, encourged to increase activity as tolerated. All labs and reports reviewed. 03/18/17-03/19/17- See Dr. Edgar Mcallister notes for weekend coverage. 03/17/17- patient is evaluated and examined on rounds. patient is s/p bronchoscopy, please see procedure notes for details. Continues on 3L of supplemental oxygen, Continues with blood tinged sputum intermittently. hgb stable today. previous chest tube site clean dry and intact. Patient continues to use IS, encourged to increase activity as tolerated. All labs and reports reviewed. 03/16/17- patient is being evaluated and examined today on rounds. Patient is resting in bed on 3 L of supplemental oxygen, he is quite fatigued. All labs and reports were reviewed. His hemoglobin is noted to drop down to 7.5 today and his sodium is 127, potassium 4.7. Patient has been coughing up blood- tinged sputum he feels very congested. Chest x-ray from today does show chronic interstitial pulmonary fibrosis and COPD with no sizable pneumothorax, small left effusion and pleural based thickening along the lateral chest wall as well as a spiculated mass in the left upper lobe. The patient is on scheduled Lovenox. 03/15/17- patient is being evaluated and examined and seen today on rounds. Apparently the patient was having some progressive shortness of breath yesterday throughout the day and into the evening however he states it has stable this morning. Patient is encouraged to participate in PT and OT. Chest tube site remains clean dry and intact. Patient did undergo a barium swallow, yesterday which was negative. Upon evaluation the patient is resting up in bed on 3 L of supplemental oxygen. States he does have a congested cough. He is afebrile, no further complaints. 03/14/17- patient is being seen in evaluated and examined today on rounds. Patient did have chest tube removal yesterday. Dressing is clean dry and intact. Chest x-ray has been reviewed and shows no sizable pneumothorax, spiculated mass in the left upper lobe, pulmonary fibrosis and changes of COPD. Patient encouraged to use incentive spirometer and increase activity as tolerated. He is afebrile, no overnight events. 03/13/17- patient is being seen examined and evaluated today on rounds. Patient has under his VATS resection on Monday. His breathing has improved. He has no hemoptysis. Chest tube in place and is currently clamped. Chest x-ray from this morning does show a stable interstitial changes with findings suggestive pulmonary fibrosis. Superimposed acute interstitial process is not excluded. Approximate 10% left-sided pneumothorax. Stable spiculated mass left upper lobe. On examination the patient's resting up in bed on room air he is afebrile no further complaints. 03/12/2017 patient seen and evaluated examined during the rounds he is having issues associated with cough congestion which is slightly better continued to have a pain at surgical site but is manageable with medication, he has problem with urinary retention requiring straight cath and initiation of Flomax which has been started and is being monitored and observed that regard. He has been advised to continue deep breathing exercises incentive spirometry overall is slightly improved compared to prior exam no more hemoptysis seen 03/11/2017, patient seen and evaluated examined in the selective care patient has successfully underwent wedge resection of the left upper lobe firm nodule which is about 2 cm in size operative reports and the primary data has been reviewed and grossly negative margins were noted the nodules been sent for histopathology final results are pending. Patient is complaining of pleuritic chest pain in the left side which is stable no pain medicine seems to be effective there is a pleural VAC is present on the right side and no air leak is present about 350 mL of dark pleural fluid has been accumulated. Patient remains on [place] antibiotics does feel some congestion and cough however no significant sputum production is seen he has baseline shortness of breath which is overall stable patient has been consult at length about importance to using IES continued to do deep breathing exercise continue pain medicine maintain patient on DVT and peptic ulcer disease prophylaxis 03/10/17- seen and examined and evaluated today on the sixth floor. Upon examination the patient is resting up in bed on room air with supplemental oxygen laying next to him. He states that he uses 2 L of supplemental oxygen off and on for comfort throughout the day when he gets winded. Patient states he does get short of breath and winded with activity and exertion. Oxygen saturations have been maintained in the mid to high 90s. Patient has been nothing by mouth since midnight for VATS procedure to be done today by cardiothoracic surgery. All labs and reports have been reviewed. 03/09/17- patient is being seen examined and evaluated today on the sixth floor. Upon examination the patient is resting up in bed on 2 L of supplemental oxygen via nasal cannula, oxygen saturations in the high 90s. Chest tube site remains clean dry and intact. Patient is being scheduled to undergo VATS procedure tomorrow with cardiothoracic surgery. He is afebrile, no overnight events. 03/08/17 patient is being seen examined and evaluated today on the sixth floor. His chest tube was removed yesterday. Dressing is clean dry and intact. Chest x-ray was reviewed from this morning does show that the left-sided chest tube has been removed without evidence for recurrent pneumothorax. Small amount of subcutaneous emphysema seen along the left chest wall. Improving left basilar infiltrate and/or atelectasis. Stable chronic density in the right upper lobe. Upon examination patient sitting up in bed on room air. He has been using supplemental oxygen on and off per the nursing staff for comfort. His oxygen saturations have remained in the mid 90s. He is afebrile, no overnight events. Patient is scheduled to go for a left video-assisted thoracoscopic wedge biopsy on Monday. 03/07/2017, patient seen and evaluated exam and on 6 floor he is breathing comfortably less short of breath his cuff congestion has improved he is not coughing purulent sputum anymore hemoptysis has resolved his chest tube has been placed on water seal a chest x-ray performed right in front of me which I have reviewed it no pneumothorax is seen on water seal. Patient is afebrile with the FiO2 is down to 2 L now and sats are 98% hemodynamic status stable except atrial fibrillation with controlled ventricular response on telemetry, the biopsy results are nondiagnostic awaiting further recommendation from cardiothoracic surgery in the meantime we'll taper down the steroids further and hopefully discontinue and next 24 hours 03/06/2017, patient seen and evaluated examined care plan discussed with the nursing staff at length biopsy results are obtained from the patient on [facility] it's a nondiagnostic tissue. Patient is breathing definitely better he still have left-sided chest tube no a leak is present subcu continue him emphysema which was seen previously is almost resolved no evidence of active hemoptysis seen patient remains in atrial fibrillation with controlled ventricular response she is on subcu Lovenox is also on broad-spectrum antibiotics and oral prednisone and seems to be tolerating very well, we'll start tapering down the steroids lowered down to 30 mg daily continue other antibiotics, awaiting further recommendation from thoracic surgery patient may very well and been getting the VATS procedure with wedge resection of left upper lobe nodule and and mediastinoscopy 03/05/17, patient seen and evaluated examined today some level of pain is present on the left thoracic wall subcu emphysema which was noted previously has improved significantly patient does have intermittent cough and chest tightness proceeded he has improved though his been getting [place] and as needed Dilaudid for adequate pain control. His chest x-ray done today failed to reveal significant pneumothorax a questionable left apical pneumothorax cannot be excluded along with some interstitial edema and basal atelectasis likely related to poor respiratory effort is still waiting for the biopsy results from [facility] with further recommendations pending cardiothoracic surgery is following as well, no more evidence of any hemoptysis is been seen heart rate is better under control but however rhythm remains atrial fibrillation with controlled ventricular response 03/04/2017, patient seen and evaluated examined in ICU he is awake and alert breathing relatively comfortably would get anxious and agitated events from yesterday and last night has been noted, patient to have left left tension pneumothorax as the prior pigtail rest tube was plugged requiring emergent placement off a new 28-Ukrainian chest tube by me in a stable position. Able to evacuate the tension pneumothorax no more bubbling was seen however patient was trying to get up late last night and to use the urinal disconnected himself over the chest tube developed shortness of breath later on the tube has been reconnected by nurse staff had no more air leak is seen in the pleural VAC. Patient has episodes of intermittent anxiety we will start him on low-dose Xanax patient had low magnesium which is being repleted he is on diet tolerated well patient has been evaluated by Dr. Persaud from thoracic surgery awaiting biopsy results with further interventions pending. His chest x-ray from earlier this morning reviewed no pneumothorax is seen chest tube was stable the right perihilar pneumonia and left lower lobe pneumonia not much change overall stable on antibiotics His labs from today's reviewed borderline hyponatremia noted he is anemic with hemoglobin of 9.6 we'll monitor observe closely Critical care time spent 35 minutes Mr. Davila is a 67-year-old male with history of severe COPD emphysema and chronic persistent asthma patient also has history of chronic atrial fibrillation and has been attempted on anticoagulants but couldn't tolerate it because of the GI bleeding has been off of blood thinners patient is somewhat unreliable in terms of follow-up he does have a history of prior pneumonia and right-sided nodule however that did resolve though. Patient was sent from the primary care provider to my office with ongoing hemoptysis and also found to have abnormal chest x-ray and CAT scan in fact patient had a PET scan as well which revealed positive uptake in the left upper lobe nodule which was new. Patient also found to have a left upper lobe and right lower lobe infiltrate suggestive of pneumonia given the severe respiratory status patient was considered not to be a candidate for bronchoscopy and biopsies options were discussed with him to optimize therapy and decision was done to admit the patient into the hospital to treat the pneumonia and consideration of biopsy and along the same time. Patient did respond well with the antibiotics with improvement in respiratory status and hemoptysis however interventional radiology was consulted for CT- guided biopsy of left upper lobe nodule they initially attempted a small lymph node on the neck in cervical area which was nondiagnostic followed by CT-guided biopsy of left upper lobe nodule. Patient did have left the pneumothorax which was progressive and eventually giving appearance of a tension pneumothorax requiring emergent placement of a small bore chest tube by interventional radiology the pneumothorax resolved only a small residual 5% pneumothorax was seen subsequent x-ray performed in the afternoon. At that time decision was done to monitor observe and patent patient to be transferred to [facility] for further evaluation and intervention and treatment and possible resection of left upper lobe nodule Objective - Vital Signs Vital signs: Vital Signs Temp 97.2 F L 03/21/17 07:00 Pulse 86 03/21/17 08:37 Resp 22 03/21/17 07:00 BP 130/65 03/21/17 07:00 Pulse Ox 96 03/21/17 08:24 Intake & Output 03/20/17 03/21/17 03/21/17 18:59 06:59 18:59 Intake Total 220 870 240 Output Total 700 1250 800 Balance -480 -969 -560 Intake: Oral 220 870 240 Output: Urine 700 1250 800 Other: Voiding Method Urinal Urinal # Voids 2 # Bowel Movements 1 - Exam - Exam - Constitutional General appearance: cooperative, disheveled, mild distress, fatigued - EENT Eyes: EOMI, PERRLA, normal appearance Ears: bilateral: normal - Neck Neck: normal ROM Carotids: bilateral: upstroke normal, bruit absent Thyroid: negative: normal size - Respiratory Respiratory: bilateral: diminished, congested, rhonchi, wheezing, prolonged expiration, no significant subcu emphysema is seen, chest tube has been discontinued . Is clean dry and intact. - Cardiovascular Rhythm: irregularly irregular Heart sounds: normal: S1, S2 - Gastrointestinal General gastrointestinal: decreased bowel sounds, normal bowel sounds, soft - Integumentary Integumentary: normal, normal turgor - Neurologic Neurologic: CNII-XII intact - Musculoskeletal Musculoskeletal: gait normal, generalized weakness, strength equal bilaterally - Psychiatric Psychiatric: A&O x's 3, appropriate affect, intact judgment & insight - Labs CBC & Chem 7: 03/20/17 05:41 03/20/17 05:41 Labs: Abnormal Lab Results - Last 24 Hours (Table) 03/20/17 03/20/17 Range/Units 11:52 16:52 POC Glucose (mg/dL) 109 H 132 H (75-99) mg/dL Microbiology - Last 24 Hours (Table) 03/19/17 21:13 Gram Stain - Preliminary Sputum Sputum Culture - Preliminary Assessment and Plan Plan: Assessment Squamous cell lung cancer Bilateral pneumonia with hemoptysis Left upper lobe nodule Left-sided iatrogenic tension pneumothorax status post new 28-Ukrainian left-sided chest tube and removal of old pigtail catheter Severe COPD with chronic hypoxic respiratory failure Chronic atrial fibrillation Status post VATS procedure Anemia, suspect acute blood loss Hyponatremia Plan Medications have been reviewed and will be continued as ordered. patient's is status post VATS procedure for left upper lobe nodule resection with VATS resection. Oncology on consult for squamous cell lung cancer. We will maintain patient on broad-spectrum antibiotics DVT and peptic ulcer disease prophylaxis for anxiety on on Xanax maintain patient on peptic ulcer disease prophylaxis continue Lovenox for chronic atrial fibrillation for now. we'll do a bedside spirometry patient is being maintained on subcu Lovenox will continue the antibiotics breathing treatment, steroids have been switched to oral. patient will be kept on peptic ulcer disease prophylaxis and supportive care care plan discussed with the nursing staff at length. Increase activity as tolerated. Continue pulmonary hygiene and supportive care. Supplemental oxygen to maintain oxygen saturations greater than 92%. Further recommendations pending. I performed an examination of the patient and discussed their management with the nurse practitioner. I have reviewed the nurse practitioner's note and agree with the documented findings and plan of care.
[2017-03-21] MEDS: SODIUM CHLORIDE 0.9% 1,000 ML IV SCH (12:07)
[2017-03-21 12:50] LABS: Glucose,Whole Blood 123 mg/dL (75-99)
--- NOTE | 2017-03-21 17:29 | P.PN ---
Subjective Patient was admitted for iatrogenic tension pneumothorax, left upper lobe mass, bilateral pneumonia, chronic hypoxic respiratory failure, severe COPD andemphysema, hemoptysis. 03/15/2017 Patient is doing much better today but the his sodium has gone down I am not sure about the exact etiology of low-sodium probably labyrinthine will repeat the sodium tomorrow we'll check with the [facility] thoracic surgery regarding further recommendations possibly of discharge tomorrow to subacute rehabitation. 03/16/2017 Patient had minimal hemoptysis today, patient is receiving blood transfusion ordered by pulmonary. Patient is going for repeat bronchoscopy tomorrow. 03/17/2017 Patient underwent bronchoscopy today, patient is coughing up bloody and dark sputum. Patient is wheezing little bit crackles improved March 18 2017 Significant overnight events, although there is no significant improvement in shortness of breath either. Patient was evaluated by oncology. 03/19/2017 Patient has no significant improvement patient is still short of breath still coughing up brownish sputum 03/20/2017 Patient overall objectively appears to have improved respiratory mae still has significant rhonchorous breath sounds and patient is complaining of pain in the left arm and chest area where he had the VATS procedurearea 03/21/2017 Patient is a fairly doing well and fairly stable at this time. case management will be consulted for disposition possibly due to discharged to subacute rehabilitation tomorrow or day after denied any abdominal pain denied any nausea vomiting. Continuing antibiotics close clinical monitoring. Objective - Vital Signs Vital signs: Vital Signs Temp 98.1 F 03/21/17 15:00 Pulse 91 03/21/17 16:40 Resp 22 03/21/17 15:00 BP 157/78 03/21/17 15:00 Pulse Ox 97 03/21/17 16:27 Intake & Output 03/20/17 03/21/17 03/21/17 18:59 06:59 18:59 Intake Total 220 870 480 Output Total 700 1250 1150 Balance -480 -380 -670 Intake: Oral 220 870 480 Output: Urine 700 1250 1150 Other: Voiding Method Urinal Urinal Urinal # Voids 2 1 # Bowel Movements 1 1 - Exam Patient is lying in the bed comfortably, no acute distress, awake alert and oriented.. HEENT: Normocephalic. Neck is supple. Pupils reactive. Nostrils clear. Oral cavity is moist. Ears reveal no drainage. Neck reveals no JVD, carotid bruits, or thyromegaly. CHEST EXAMINATION: Trachea is central. Symmetrical expansion. Patient was sounds are rhonchorous and bibasilar crackles were heard CARDIAC: Normal S1, S2 with no gallops. No murmurs ABDOMEN: Soft. Bowel sounds normal. No organomegaly. No abdominal bruits. Extremities reveal no edema. No clubbing or cyanosis Neurologically awake, alert, oriented x3 with well-coordinated movements. Skin: no rash or skin lesions Musculoskeletal: no joint swelling or deformity. - Labs CBC & Chem 7: 03/20/17 05:41 03/20/17 05:41 Labs: Abnormal Lab Results - Last 24 Hours (Table) 03/21/17 Range/Units 12:38 POC Glucose (mg/dL) 123 H (75-99) mg/dL Microbiology - Last 24 Hours (Table) 03/19/17 21:13 Gram Stain - Preliminary Sputum Sputum Culture - Preliminary Assessment and Plan Plan: Left-sided pneumothorax followed by biopsy. Iatrogenic: Chest tube was removed patient is fairly doing well but does have still with of wheezing and decreased air entry into bilateral lung love. Bilateral pneumonia: Patient is on ceftriaxone and azithromycin. Macrocytic anemia Hypovolemic hyponatremia did improve Severe COPD with acute exacerbation Chronic hypoxic respiratory failure History of colon cancer status post resection History of VT GERD Chronic atrial fibrillation. 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 DVT prophylaxis Left upper lobe lung nodule status post CT-guided biopsy initially. 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
[2017-03-21 17:31] LABS: Glucose,Whole Blood 114 mg/dL (75-99)
[2017-03-21 21:27] LABS: Glucose,Whole Blood 91 mg/dL (75-99)
--- NOTE | 2017-03-21 23:12 | PN ---
PROGRESS NOTE DATE OF SERVICE: 03/21/2017 REASON FOR FOLLOWUP: Pneumonia. INTERVAL HISTORY: The patient is afebrile, has been breathing comfortably. He is still complaining of some cough and some hemoptysis, but no worse than yesterday. No chest pain. No abdominal pain. No diarrhea. PHYSICAL EXAMINATION: Blood pressure is 157/78 with a pulse of 94, temperature 98.1. He is 100% on 3 L nasal cannula. General description is an elderly male lying in bed in no distress. RESPIRATORY SYSTEM: Unlabored breathing. Coarse breath sounds in the bases bilaterally. HEART: S1, S2. Regular rate and rhythm. ABDOMEN: Soft. No tenderness. LABS: No new labs have been obtained today. Sputum has been negative so far. DIAGNOSTIC IMPRESSION AND PLAN: Patient admitted to the hospital with tension pneumothorax, status post chest tube placement and a wedge biopsy of lung nodules, status post bronchoscopy, now with hemoptysis. There has been a question of pneumonia; however, sputum is negative for a resistant pathogen. The patient is currently on oral Augmentin. That will be continued. Continue supportive care. MMODL / IJN: [id number] / MTDD
[2017-03-22 00:20] VITALS: RESP 20
[2017-03-22] MEDS: HYDROcodone/APAP 7.5-325MG 1 EACH TAB PO PRN ×3 (00:54→09:44)
[2017-03-22] MEDS: SODIUM CHLORIDE 0.9% 1,000 ML IV SCH (05:37)
[2017-03-22 06:47] VITALS: BP 146/77; TEMP 98
[2017-03-22 07:19] LABS: Glucose,Whole Blood 92 mg/dL (75-99)
[2017-03-22] MEDS: INSULIN LISPRO (humaLOG) 300 UNIT/3 ML VIAL SQ SCH ×2 (08:12→12:20)
[2017-03-22] MEDS: DIVALPROEX 500 MG TABLET.DR PO SCH (08:14)
[2017-03-22] MEDS: carBAMazepine 400 MG TAB.ER.12H PO SCH (08:14)
[2017-03-22] MEDS: TAMSULOSIN 0.4 MG CAP.ER.24H PO SCH (08:14)
[2017-03-22] MEDS: AMOXIC-POT CLAV 875-125MG 1 EACH TAB PO SCH (08:14)
[2017-03-22] MEDS: METOPROLOL SUCCINATE (ER) 25 MG TAB.ER.24H PO SCH (08:15)
[2017-03-22] MEDS: PARoxetine 10 MG TAB PO SCH (08:15)
[2017-03-22] MEDS: FAMOTIDINE 20 MG TAB PO SCH (08:15)
[2017-03-22] MEDS: predniSONE 20 MG TAB PO SCH (08:15)
[2017-03-22] MEDS: BUDESONIDE 0.5 MG/2 ML NEBU INHALATION SCH (08:25)
[2017-03-22] MEDS: IPRATROPIUM-ALBUTEROL 3 ML NEB IH SCH ×3 (08:26→15:42)
--- NOTE | 2017-03-22 10:40 | P.PN ---
Subjective Progress Note Date: 03/22/17 Principal diagnosis: Tension pneumothorax, left upper lobe mass, bilateral pneumonia, chronic hypoxic respiratory failure, severe COPD andemphysema, hemoptysis 03/22/17- patient is being seen examined and evaluated on the fourth floor. Upon examination the patient's resting up in bed on 3 L of supplemental oxygen via nasal cannula. It is reported that the patient does take his oxygen off intermittently. He continues to have some scant rust-colored sputum however it has continued to decrease. Patient continues to refuse any anticoagulants, he stated that he will take aspirin but nothing more. Patient is being prepared for possible discharge to rehab facility in the near future. All labs and reports have been reviewed. No further complaints. 03/21/17- patient is being seen examined and evaluated today on rounds. Upon examination patient is currently resting in bed on 3 L of supplemental oxygen via nasal cannula. Patient states he has had some scant rust-colored sputum brought up today with coughing. Sputum production has decreased today. Patient states he feels better than yesterday. Continues to have intermittent pain at his previous surgical site, as needed pain medication has been effective. Patient states he has not increased his activity and he is encouraged to do so. States his appetite has been stable. He is afebrile, no further complaints. All labs and reports have been reviewed. 03/20/17- patient is being seen examined and evaluated today on rounds. Patient has no significant improvement patient. He continues on 3 L of supplemental oxygen via nasal cannula. Continues with shortness of breath with exertion and conversations. Patient continues to have brown/maroon and blood tinged sputum. Hemoglobin is 8.7 today. Hemodynamically stable. previous chest tube site clean dry and intact. Patient continues to use IS, encourged to increase activity as tolerated. All labs and reports reviewed. 03/18/17-03/19/17- See Dr. Edgar Mcallister notes for weekend coverage. 03/17/17- patient is evaluated and examined on rounds. patient is s/p bronchoscopy, please see procedure notes for details. Continues on 3L of supplemental oxygen, Continues with blood tinged sputum intermittently. hgb stable today. previous chest tube site clean dry and intact. Patient continues to use IS, encourged to increase activity as tolerated. All labs and reports reviewed. 03/16/17- patient is being evaluated and examined today on rounds. Patient is resting in bed on 3 L of supplemental oxygen, he is quite fatigued. All labs and reports were reviewed. His hemoglobin is noted to drop down to 7.5 today and his sodium is 127, potassium 4.7. Patient has been coughing up blood- tinged sputum he feels very congested. Chest x-ray from today does show chronic interstitial pulmonary fibrosis and COPD with no sizable pneumothorax, small left effusion and pleural based thickening along the lateral chest wall as well as a spiculated mass in the left upper lobe. The patient is on scheduled Lovenox. 03/15/17- patient is being evaluated and examined and seen today on rounds. Apparently the patient was having some progressive shortness of breath yesterday throughout the day and into the evening however he states it has stable this morning. Patient is encouraged to participate in PT and OT. Chest tube site remains clean dry and intact. Patient did undergo a barium swallow, yesterday which was negative. Upon evaluation the patient is resting up in bed on 3 L of supplemental oxygen. States he does have a congested cough. He is afebrile, no further complaints. 03/14/17- patient is being seen in evaluated and examined today on rounds. Patient did have chest tube removal yesterday. Dressing is clean dry and intact. Chest x-ray has been reviewed and shows no sizable pneumothorax, spiculated mass in the left upper lobe, pulmonary fibrosis and changes of COPD. Patient encouraged to use incentive spirometer and increase activity as tolerated. He is afebrile, no overnight events. 03/13/17- patient is being seen examined and evaluated today on rounds. Patient has under his VATS resection on Monday. His breathing has improved. He has no hemoptysis. Chest tube in place and is currently clamped. Chest x-ray from this morning does show a stable interstitial changes with findings suggestive pulmonary fibrosis. Superimposed acute interstitial process is not excluded. Approximate 10% left-sided pneumothorax. Stable spiculated mass left upper lobe. On examination the patient's resting up in bed on room air he is afebrile no further complaints. 03/12/2017 patient seen and evaluated examined during the rounds he is having issues associated with cough congestion which is slightly better continued to have a pain at surgical site but is manageable with medication, he has problem with urinary retention requiring straight cath and initiation of Flomax which has been started and is being monitored and observed that regard. He has been advised to continue deep breathing exercises incentive spirometry overall is slightly improved compared to prior exam no more hemoptysis seen 03/11/2017, patient seen and evaluated examined in the [facility] care patient has successfully underwent wedge resection of the left upper lobe firm nodule which is about 2 cm in size operative reports and the primary data has been reviewed and grossly negative margins were noted the nodules been sent for histopathology final results are pending. Patient is complaining of pleuritic chest pain in the left side which is stable no pain medicine seems to be effective there is a pleural VAC is present on the right side and no air leak is present about 350 mL of dark pleural fluid has been accumulated. Patient remains on [place] antibiotics does feel some congestion and cough however no significant sputum production is seen he has baseline shortness of breath which is overall stable patient has been consult at length about importance to using IES continued to do deep breathing exercise continue pain medicine maintain patient on DVT and peptic ulcer disease prophylaxis 03/10/17- seen and examined and evaluated today on the sixth floor. Upon examination the patient is resting up in bed on room air with supplemental oxygen laying next to him. He states that he uses 2 L of supplemental oxygen off and on for comfort throughout the day when he gets winded. Patient states he does get short of breath and winded with activity and exertion. Oxygen saturations have been maintained in the mid to high 90s. Patient has been nothing by mouth since midnight for VATS procedure to be done today by cardiothoracic surgery. All labs and reports have been reviewed. 03/09/17- patient is being seen examined and evaluated today on the sixth floor. Upon examination the patient is resting up in bed on 2 L of supplemental oxygen via nasal cannula, oxygen saturations in the high 90s. Chest tube site remains clean dry and intact. Patient is being scheduled to undergo VATS procedure tomorrow with cardiothoracic surgery. He is afebrile, no overnight events. 03/08/17 patient is being seen examined and evaluated today on the sixth floor. His chest tube was removed yesterday. Dressing is clean dry and intact. Chest x-ray was reviewed from this morning does show that the left-sided chest tube has been removed without evidence for recurrent pneumothorax. Small amount of subcutaneous emphysema seen along the left chest wall. Improving left basilar infiltrate and/or atelectasis. Stable chronic density in the right upper lobe. Upon examination patient sitting up in bed on room air. He has been using supplemental oxygen on and off per the nursing staff for comfort. His oxygen saturations have remained in the mid 90s. He is afebrile, no overnight events. Patient is scheduled to go for a left video-assisted thoracoscopic wedge biopsy on Monday. 03/07/2017, patient seen and evaluated exam and on 6 floor he is breathing comfortably less short of breath his cuff congestion has improved he is not coughing purulent sputum anymore hemoptysis has resolved his chest tube has been placed on water seal a chest x-ray performed right in front of me which I have reviewed it no pneumothorax is seen on water seal. Patient is afebrile with the FiO2 is down to 2 L now and sats are 98% hemodynamic status stable except atrial fibrillation with controlled ventricular response on telemetry, the biopsy results are nondiagnostic awaiting further recommendation from cardiothoracic surgery in the meantime we'll taper down the steroids further and hopefully discontinue and next 24 hours 03/06/2017, patient seen and evaluated examined care plan discussed with the nursing staff at length biopsy results are obtained [facility]'s a nondiagnostic tissue. Patient is breathing definitely better he still have left-sided chest tube no a leak is present subcu continue him emphysema which was seen previously is almost resolved no evidence of active hemoptysis seen patient remains in atrial fibrillation with controlled ventricular response she is on subcu Lovenox is also on broad-spectrum antibiotics and oral prednisone and seems to be tolerating very well, we'll start tapering down the steroids lowered down to 30 mg daily continue other antibiotics, awaiting further recommendation from thoracic surgery patient may very well and been getting the VATS procedure with wedge resection of left upper lobe nodule and and mediastinoscopy 03/05/17, patient seen and evaluated examined today some level of pain is present on the left thoracic wall subcu emphysema which was noted previously has improved significantly patient does have intermittent cough and chest tightness proceeded he has improved though his been getting [place] and as needed Dilaudid for adequate pain control. His chest x-ray done today failed to reveal significant pneumothorax a questionable left apical pneumothorax cannot be excluded along with some interstitial edema and basal atelectasis likely related to poor respiratory effort is still waiting for the biopsy results from [facility] with further recommendations pending cardiothoracic surgery is following as well, no more evidence of any hemoptysis is been seen heart rate is better under control but however rhythm remains atrial fibrillation with controlled ventricular response 03/04/2017, patient seen and evaluated examined in ICU he is awake and alert breathing relatively comfortably would get anxious and agitated events from yesterday and last night has been noted, patient to have left left tension pneumothorax as the prior pigtail rest tube was plugged requiring emergent placement off a new 28-Lithuanian chest tube by me in a stable position. Able to evacuate the tension pneumothorax no more bubbling was seen however patient was trying to get up late last night and to use the urinal disconnected himself over the chest tube developed shortness of breath later on the tube has been reconnected by nurse staff had no more air leak is seen in the pleural VAC. Patient has episodes of intermittent anxiety we will start him on low-dose Xanax patient had low magnesium which is being repleted he is on diet tolerated well patient has been evaluated by Dr. Persaud from thoracic surgery awaiting biopsy results with further interventions pending. His chest x-ray from earlier this morning reviewed no pneumothorax is seen chest tube was stable the right perihilar pneumonia and left lower lobe pneumonia not much change overall stable on antibiotics His labs from today's reviewed borderline hyponatremia noted he is anemic with hemoglobin of 9.6 we'll monitor observe closely Critical care time spent 35 minutes Mr. Davila is a 67-year-old male with history of severe COPD emphysema and chronic persistent asthma patient also has history of chronic atrial fibrillation and has been attempted on anticoagulants but couldn't tolerate it because of the GI bleeding has been off of blood thinners patient is somewhat unreliable in terms of follow-up he does have a history of prior pneumonia and right-sided nodule however that did resolve though. Patient was sent from the primary care provider to my office with ongoing hemoptysis and also found to have abnormal chest x-ray and CAT scan in fact patient had a PET scan as well which revealed positive uptake in the left upper lobe nodule which was new. Patient also found to have a left upper lobe and right lower lobe infiltrate suggestive of pneumonia given the severe respiratory status patient was considered not to be a candidate for bronchoscopy and biopsies options were discussed with him to optimize therapy and decision was done to admit the patient into the hospital to treat the pneumonia and consideration of biopsy and along the same time. Patient did respond well with the antibiotics with improvement in respiratory status and hemoptysis however interventional radiology was consulted for CT- guided biopsy of left upper lobe nodule they initially attempted a small lymph node on the neck in cervical area which was nondiagnostic followed by CT-guided biopsy of left upper lobe nodule. Patient did have left the pneumothorax which was progressive and eventually giving appearance of a tension pneumothorax requiring emergent placement of a small bore chest tube by interventional radiology the pneumothorax resolved only a small residual 5% pneumothorax was seen subsequent x-ray performed in the afternoon. At that time decision was done to monitor observe and patent patient to be transferred to [facility] for further evaluation and intervention and treatment and possible resection of left upper lobe nodule Objective - Vital Signs Vital signs: Vital Signs Temp 98.0 F 03/22/17 06:46 Pulse 98 03/22/17 08:39 Resp 20 03/22/17 06:46 BP 146/77 03/22/17 06:46 Pulse Ox 95 03/22/17 08:28 Intake & Output 03/21/17 03/22/17 03/22/17 18:59 06:59 18:59 Intake Total 480 900 Output Total 1150 1200 Balance -670 -300 Weight 62 kg Intake: Oral 480 900 Output: Urine 1150 1200 Other: Voiding Method Urinal Urinal # Voids 1 # Bowel Movements 1 - Exam - Exam - Constitutional General appearance: cooperative, disheveled, mild distress, fatigued - EENT Eyes: EOMI, PERRLA, normal appearance Ears: bilateral: normal - Neck Neck: normal ROM Carotids: bilateral: upstroke normal, bruit absent Thyroid: negative: normal size - Respiratory Respiratory: bilateral: diminished, congested, rhonchi, wheezing, prolonged expiration, surgical site is clean dry and intact. - Cardiovascular Rhythm: irregularly irregular Heart sounds: normal: S1, S2 - Gastrointestinal General gastrointestinal: decreased bowel sounds, normal bowel sounds, soft - Integumentary Integumentary: normal, normal turgor - Neurologic Neurologic: CNII-XII intact - Musculoskeletal Musculoskeletal: gait normal, generalized weakness, strength equal bilaterally - Psychiatric Psychiatric: A&O x's 3, appropriate affect, intact judgment & insight - Labs CBC & Chem 7: 03/20/17 05:41 03/20/17 05:41 Labs: Abnormal Lab Results - Last 24 Hours (Table) 03/21/17 03/21/17 Range/Units 12:38 17:14 POC Glucose (mg/dL) 123 H 114 H (75-99) mg/dL Microbiology - Last 24 Hours (Table) 03/19/17 21:13 Gram Stain - Final Sputum Sputum Culture - Final Assessment and Plan Plan: Assessment Squamous cell lung cancer Bilateral pneumonia with hemoptysis Left upper lobe nodule Left-sided iatrogenic tension pneumothorax status post new 28-Lithuanian left-sided chest tube and removal of old pigtail catheter Severe COPD with chronic hypoxic respiratory failure Chronic atrial fibrillation Status post VATS procedure Anemia, suspect acute blood loss Hyponatremia Plan Patient is being worked up for possible discharge to rehab facility in the near future. Medications have been reviewed and will be continued as ordered. patient's is status post VATS procedure for left upper lobe nodule resection with VATS resection. Oncology on consult for squamous cell lung cancer. We will maintain patient on broad-spectrum antibiotics DVT and peptic ulcer disease prophylaxis for anxiety on on Xanax maintain patient on peptic ulcer disease prophylaxis continue Lovenox for chronic atrial fibrillation for now. we 'll do a bedside spirometry patient is being maintained on subcu Lovenox will continue the antibiotics breathing treatment, steroids have been switched to oral. patient will be kept on peptic ulcer disease prophylaxis and supportive care care plan discussed with the nursing staff at length. Increase activity as tolerated. Continue pulmonary hygiene and supportive care. Supplemental oxygen to maintain oxygen saturations greater than 92%. Further recommendations pending. I performed an examination of the patient and discussed their management with the nurse practitioner. I have reviewed the nurse practitioner's note and agree with the documented findings and plan of care.
[2017-03-22 12:19] LABS: Glucose,Whole Blood 118 mg/dL (75-99)
--- NOTE | 2017-03-22 14:43 | P.DS ---
Providers Date of admission: 03/02/17 20:56 Attending physician: Beth Dunbar Consults: 03/02/17 21:53 Consult Physician Routine Consulting Provider: Rico Nazario Consult Reason/Comments: Knows patient Do you want consulting provider notified?: Already Contacted 03/02/17 22:09 Consult Physician Routine Consulting Provider: Gage Jimenez Consult Reason/Comments: 1. left pneumothorax 2. ALEN nodule Do you want consulting provider notified?: Yes 03/16/17 14:58 Consult Physician Routine Consulting Provider: Gideon Choi Consult Reason/Comments: Hyponatremia Do you want consulting provider notified?: Yes 03/17/17 09:49 Consult Physician Routine Consulting Provider: Rahul Craft Consult Reason/Comments: squamous cell carcinoma lung Do you want consulting provider notified?: Yes 03/18/17 14:23 Consult Physician Routine Consulting Provider: Henny Herrera Consult Reason/Comments: infectiion Do you want consulting provider notified?: Yes Primary care physician: Stated None Hospital Course: Patient was admitted for iatrogenic tension pneumothorax, left upper lobe mass, bilateral pneumonia, chronic hypoxic respiratory failure, severe COPD andemphysema, hemoptysis. 03/15/2017 Patient is doing much better today but the his sodium has gone down I am not sure about the exact etiology of low-sodium probably labyrinthine will repeat the sodium tomorrow we'll check with the [facility] thoracic surgery regarding further recommendations possibly of discharge tomorrow to subacute rehabitation. 03/16/2017 Patient had minimal hemoptysis today, patient is receiving blood transfusion ordered by pulmonary. Patient is going for repeat bronchoscopy tomorrow. 03/17/2017 Patient underwent bronchoscopy today, patient is coughing up bloody and dark sputum. Patient is wheezing little bit crackles improved March 18 2017 Significant overnight events, although there is no significant improvement in shortness of breath either. Patient was evaluated by oncology. 03/19/2017 Patient has no significant improvement patient is still short of breath still coughing up brownish sputum 03/20/2017 Patient overall objectively appears to have improved respiratory mae still has significant rhonchorous breath sounds and patient is complaining of pain in the left arm and chest area where he had the VATS procedurearea 03/21/2017 Patient is a fairly doing well and fairly stable at this time. case management will be consulted for disposition possibly due to discharged to subacute rehabilitation tomorrow or day after 03/22/2017 Patient respiratory status is at his baseline patient is being discharged to subacute rehabitation although patient because of his mental medical problems and squamous cell carcinoma of the lung is high risk for readmission denied any abdominal pain denied any nausea vomiting. Continuing antibiotics close clinical monitoring. Patient is lying in the bed comfortably, no acute distress, awake alert and oriented.. HEENT: Normocephalic. Neck is supple. Pupils reactive. Nostrils clear. Oral cavity is moist. Ears reveal no drainage. Neck reveals no JVD, carotid bruits, or thyromegaly. CHEST EXAMINATION: Trachea is central. Symmetrical expansion. Patient was sounds are rhonchorous and bibasilar crackles were heard CARDIAC: Normal S1, S2 with no gallops. No murmurs ABDOMEN: Soft. Bowel sounds normal. No organomegaly. No abdominal bruits. Extremities reveal no edema. No clubbing or cyanosis Neurologically awake, alert, oriented x3 with well-coordinated movements. Skin: no rash or skin lesions Musculoskeletal: no joint swelling or deformity. Left-sided pneumothorax followed by biopsy. Iatrogenic: Chest tube was removed patient is fairly doing well but does have still with of wheezing and decreased air entry into bilateral lung love. Bilateral pneumonia: Patient is being discharged on Augmentin Macrocytic anemia Hypovolemic hyponatremia did improve Severe COPD with acute exacerbation Chronic hypoxic respiratory failure History of colon cancer status post resection History of [place] GERD Chronic atrial fibrillation. 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 DVT prophylaxis Left upper lobe lung nodule status post CT-guided biopsy initially. She is found to have squamous cell lung cancer possibility of limited cancer because of which oncology is recommending wedge resection Plan - Discharge Summary New Discharge Prescriptions: New Amoxic-Pot Clav 875-125Mg [Augmentin 875-125] 1 each PO Q12HR #14 tab HYDROcodone/APAP 7.5-325MG [[place] 7.5-325] 1 each PO Q4H PRN #20 tab PRN Reason: SEVERE Pain Ipratropium-Albuterol Nebulize [Duoneb 0.5 mg-3 mg/3 ml Soln] 3 ml IH RT-QID neb Metoprolol Succinate (ER) [Toprol XL] 25 mg PO DAILY tab PARoxetine [Paxil] 10 mg PO DAILY tab predniSONE 10 mg PO DAILY #30 tab Tamsulosin [Flomax] 0.4 mg PO PC-BRKFST cap Continue carBAMazepine [carBAMazepine XR] 400 mg PO BID Divalproex [Depakote] 1,000 mg PO BID Budesonide-Formot 160-4.5 Mcg [Symbicort 160-4.5 Mcg Inhaler] 2 puff INHALATION RT-BID Discharge Medication List Budesonide-Formot 160-4.5 Mcg [Symbicort 160-4.5 Mcg Inhaler] 2 puff INHALATION RT-BID 05/22/14 [History] Divalproex [Depakote] 1,000 mg PO BID 05/22/14 [History] carBAMazepine [carBAMazepine XR] 400 mg PO BID 05/22/14 [History] Amoxic-Pot Clav 875-125Mg [Augmentin 875-125] 1 each PO Q12HR #14 tab 03/22/17 [ Rx] HYDROcodone/APAP 7.5-325MG [[place] 7.5-325] 1 each PO Q4H PRN #20 tab 03/22/17 [ Rx] Ipratropium-Albuterol Nebulize [Duoneb 0.5 mg-3 mg/3 ml Soln] 3 ml IH RT-QID neb 03/22/17 [Rx] Metoprolol Succinate (ER) [Toprol XL] 25 mg PO DAILY tab 03/22/17 [Rx] PARoxetine [Paxil] 10 mg PO DAILY tab 03/22/17 [Rx] Tamsulosin [Flomax] 0.4 mg PO PC-BRKFST cap 03/22/17 [Rx] predniSONE 10 mg PO DAILY #30 tab 03/22/17 [Rx] Follow up Appointment(s)/Referral(s): Jovan Perasud MD [STAFF PHYSICIAN] - 03/27/17 12:00 pm Rico Nazario MD [STAFF PHYSICIAN] - 1 Week Discharge Disposition: TRANSFER TO [facility]/F
[2017-03-22 15:44] VITALS: PULSE 94
--- NOTE | 2017-03-22 20:19 | PN ---
PROGRESS NOTE DATE OF SERVICE: 03/22/2017. REASON FOR FOLLOWUP: Pneumonia. INTERVAL HISTORY: The patient is afebrile. He is breathing comfortably. He was seen on rounds this afternoon and still has some cough, but less productive, some blood in it. No nausea, vomiting or diarrhea. PHYSICAL EXAMINATION: Blood pressure 146/77 with a pulse of 95, temperature of 98. He is 95% on room air. GENERAL DESCRIPTION: An elderly male lying in bed in no distress. RESPIRATORY SYSTEM: Unlabored breathing. Decreased breath sounds at the base. No wheezing. HEART: S1, S2. Regular rate and rhythm. ABDOMEN: Soft. There is no tenderness. EXTREMITIES: No edema of the feet. LABS: No new labs have been obtained today. His sputum culture has been negative. DIAGNOSTIC IMPRESSION AND PLAN: Patient admitted to the hospital with a tension pneumothorax, status post chest tube placement, also with a wedge lung biopsy with a diagnosis of cancer. Hemoptysis s/p Bronchoscopy but no cultures. The sputum has been negative for resistant pathogen. Currently on oral Augmentin. Will continue for about a week to finish a course of therapy. Continue supportive care. MMODL / IJN: [id number] / MTDD
== END 2017-03-22 16:59 | DRG 166 ==
LOC: 6ICU 20:56 → 6SEL 03-06 11:59 → 4MS4W 03-20 13:05
PROVIDERS: ADMIT Hospitalist; ATTEND Hospitalist
PROC: 0W9B30Z Drainage of Left Pleural Cavity with Drainage Device, Percutaneous Approach (ICD-10-PCS; 2017-03-03)
PROC: 0BBG4ZX Excision of Left Upper Lung Lobe, Percutaneous Endoscopic Approach, Diagnostic (ICD-10-PCS; 2017-03-10)
PROC: 30233N1 Transfusion of Nonautologous Red Blood Cells into Peripheral Vein, Percutaneous Approach (ICD-10-PCS; 2017-03-16)
PROC: 0B9G8ZX Drainage of Left Upper Lung Lobe, Via Natural or Artificial Opening Endoscopic, Diagnostic (ICD-10-PCS; 2017-03-17)
PROC: 0B9F8ZX Drainage of Right Lower Lung Lobe, Via Natural or Artificial Opening Endoscopic, Diagnostic (ICD-10-PCS; 2017-03-17)
PROC: 0B9J8ZX Drainage of Left Lower Lung Lobe, Via Natural or Artificial Opening Endoscopic, Diagnostic (ICD-10-PCS; principal; 2017-03-17 09:00)
DX: J95.811 Postprocedural pneumothorax (principal); J18.9 Pneumonia, unspecified organism; J96.21 Acute and chronic respiratory failure with hypoxia; J84.112 Idiopathic pulmonary fibrosis; J90 Pleural effusion, not elsewhere classified; C34.12 Malignant neoplasm of upper lobe, left bronchus or lung; E87.1 Hypo-osmolality and hyponatremia; D62 Acute posthemorrhagic anemia; Z99.81 Dependence on supplemental oxygen; J44.0 Chronic obstructive pulmonary disease with (acute) lower respiratory infection; R04.2 Hemoptysis; J44.1 Chronic obstructive pulmonary disease with (acute) exacerbation; I48.2 Chronic atrial fibrillation; I69.928 Other speech and language deficits following unspecified cerebrovascular disease; I69.322 Dysarthria following cerebral infarction; T81.82XA Emphysema (subcutaneous) resulting from a procedure, initial encounter; I69.934 Monoplegia of upper limb following unspecified cerebrovascular disease affecting left non-dominant side; I10 Essential (primary) hypertension; E86.1 Hypovolemia; I25.2 Old myocardial infarction; F41.9 Anxiety disorder, unspecified; R33.8 Other retention of urine; G40.909 Epilepsy, unspecified, not intractable, without status epilepticus; E78.5 Hyperlipidemia, unspecified; K21.9 Gastro-esophageal reflux disease without esophagitis; D53.9 Nutritional anemia, unspecified; G89.29 Other chronic pain; M54.5 Low back pain; Z79.899 Other long term (current) drug therapy; Z79.51 Long term (current) use of inhaled steroids; Z87.891 Personal history of nicotine dependence; Z85.038 Personal history of other malignant neoplasm of large intestine; Z87.01 Personal history of pneumonia (recurrent); Z98.42 Cataract extraction status, left eye; Z98.41 Cataract extraction status, right eye; Z87.442 Personal history of urinary calculi; Z91.19 Patient's noncompliance with other medical treatment and regimen; Z90.49 Acquired absence of other specified parts of digestive tract; Y84.8 Other medical procedures as the cause of abnormal reaction of the patient, or of later complication, without mention of misadventure at the time of the procedure; Z80.1 Family history of malignant neoplasm of trachea, bronchus and lung; Z82.5 Family history of asthma and other chronic lower respiratory diseases
CPT/HCPCS: 31624; 71010; 71020; 74230; 80048; 80053; 81001; 82272; 82570; 82607; 82728; 82746; 83036; 83540; 83550; 83735; 83930; 83935; 84100; 84300; 85025; 85027; 85610; 86850; 86900; 86901; 86920; 87070; 87086; 87205; 88108; 88305; 88307; 88313; 88341; 88342; 94640; 94760

== ENCOUNTER 2017-04-03 17:25 | Inpatient (IN) | payer MEDICARE, OTHER ==
--- NOTE | 2017-04-03 17:32 | ED ---
General Adult HPI - General Stated complaint: Chest Pain Time Seen by Provider: 04/03/17 17:29 Source: RN notes reviewed, old records reviewed - History of Present Illness Initial comments: This is a 67-year-old patient has history of chest pain, heart disease, multiple cardiac risk factors. Patient has history of A. fib, CVA, high blood pressure and cholesterol. Multiple cardiac risk factors. Patient coming with sudden onset of anterior severe chest pain. Mild shortness of breath. Patient states he had pain like this when he was about 38 years old, unsure what his diagnosis was at the time. Denies fever denies cough or congestion. No travel history, no sick contacts - Related Data Home Medications Medication Instructions Recorded Confirmed Budesonide-Formot 160-4.5 Mcg 2 puff INHALATION RT-BID 05/22/14 04/03/17 [Symbicort 160-4.5 Mcg Inhaler] Divalproex [Depakote] 1,000 mg PO BID@0800,1700 05/22/14 04/03/17 carBAMazepine [carBAMazepine XR] 400 mg PO BID 05/22/14 04/03/17 Bisacodyl [Dulcolax] 10 mg RECTAL DAILY PRN 04/03/17 04/03/17 Calcium Carbonate [Tums] 500 mg PO Q8H PRN 04/03/17 04/03/17 Gabapentin [Neurontin] 100 mg PO TID 04/03/17 04/03/17 HYDROcodone/APAP 7.5-325MG [[place] 1 tab PO Q4H PRN 04/03/17 04/03/17 7.5-325] INSULIN LISPRO (HumaLOG) [HumaLOG] See Protocol SQ ACHS 04/03/17 04/03/17 Magnesium Hydroxide [Milk of 2,400 mg PO DAILY PRN 04/03/17 04/03/17 Magnesia] Na Phos,M-B/Na Phos,Di-Ba [Fleet 133 ml RECTAL ONCE PRN 04/03/17 04/03/17 Adult] Tamsulosin [Flomax] 0.4 mg PO QAM 04/03/17 04/03/17 predniSONE See Taper PO DAILY 04/03/17 04/03/17 Previous Rx's Medication Instructions Recorded Ipratropium-Albuterol Nebulize 3 ml IH RT-QID neb 03/22/17 [Duoneb 0.5 mg-3 mg/3 ml Soln] Metoprolol Succinate (ER) [Toprol 25 mg PO DAILY tab 03/22/17 XL] PARoxetine [Paxil] 10 mg PO DAILY tab 03/22/17 Allergies Allergy/AdvReac Type Severity Reaction Status Date / Time Influenza Virus Vaccines Allergy Unknown Verified 04/03/17 18:15 pneumococcal vaccine Allergy Unknown Verified 04/03/17 18:15 Review of Systems ROS Statement: Those systems with pertinent positive or pertinent negative responses have been documented in the HPI. ROS Other: All systems not noted in ROS Statement are negative. Past Medical History Past Medical History: Atrial Fibrillation, Cancer, Chest Pain / Angina, COPD, CVA/TIA, GERD/Reflux, GI Bleed, Hyperlipidemia, Hypertension, Myocardial Infarction (CT), Musculoskeletal Disorder, Renal Disease, Seizure Disorder Additional Past Medical History / Comment(s): 07/21/14 Pt states he was admitted on 07/17/14 and had colonoscopy then laparoscopic sigmoid colectomy for adenocarcinoma was performed on 07/19/14. Other HX: colon cancer found during colonoscopy-polyp which was adenocarcinoma, ULCER; EPILEPTIC - STATES LAST SEIZURE PREV TO 1994; CVA - AFFECTS SPEECH/able to print but not write in cursive. UNABLE TO COMPLETELY CLOSE LEFT HAND R/T hx of LARGE LACERATION. HX OF RT HIP DISORDER, WORE CAST, THEN BRACE FOR 2 YRS, chronic low back pain, renal cysts and kidney stones, GI bleed associated with anticoaulation. Has home O2 which he uses when necessary Last Myocardial Infarction Date:: patient reports 19 years ago History of Any Multi-Drug Resistant Organisms: None Reported Past Surgical History: Orthopedic Surgery Additional Past Surgical History / Comment(s): 07/19/14 Laparoscopic sigmoid colectomy. LEFT HAND SX, EXC VILMA CATARACTS; COLONOSCOPY 05/26/14. Past Anesthesia/Blood Transfusion Reactions: No Reported Reaction Past Psychological History: No Psychological Hx Reported Smoking Status: Former smoker Past Alcohol Use History: Rare Past Drug Use History: None Reported - Past Family History Father Family Medical History: CVA/TIA Mother Family Medical History: Cancer General Exam General appearance: alert, in no apparent distress Head exam: Present: atraumatic, normocephalic, normal inspection Eye exam: Present: normal appearance, PERRL, EOMI. Absent: scleral icterus, conjunctival injection, periorbital swelling ENT exam: Present: normal exam, mucous membranes moist Neck exam: Present: normal inspection. Absent: tenderness, meningismus, lymphadenopathy Respiratory exam: Present: normal lung sounds bilaterally. Absent: respiratory distress, wheezes, rales, rhonchi, stridor Cardiovascular Exam: Present: regular rate, normal rhythm, normal heart sounds. Absent: systolic murmur, diastolic murmur, rubs, gallop, clicks GI/Abdominal exam: Present: soft, normal bowel sounds. Absent: distended, tenderness, guarding, rebound, rigid Extremities exam: Present: normal inspection, full ROM, normal capillary refill. Absent: tenderness, pedal edema, joint swelling, calf tenderness Back exam: Present: normal inspection Neurological exam: Present: alert, oriented X3, CN II-XII intact Psychiatric exam: Present: normal affect, normal mood Skin exam: Present: warm, dry, intact, normal color. Absent: rash Course Vital Signs 04/03/17 17:29 Temperature 98.2 F Pulse Rate 79 Respiratory 22 Rate Blood Pressure 128/66 O2 Sat by Pulse 95 Oximetry - Reevaluation(s) Reevaluation #1: 04/03/17 18:36 Patient's medical record is reviewed, unable to decipher patient is on blood thinning medication at this time EKG Findings - EKG Comments: EKG Findings:: EKG shows atrial fibrillation rate of 86, QRS 70, QTc 469 Medical Decision Making - Medical Decision Making 67 male in the ER for evaluation. Patient has significant medical history coming in with chest pain states there is like prior heart disease. Patient will be admitted for cardiac catheterization, she'll troponins, telemetry. - Lab Data Result diagrams: 04/03/17 17:45 04/03/17 17:45 Lab Results 04/03/17 04/03/17 04/03/17 Range/Units 17:45 17:45 17:45 WBC 6.1 (3.8-10.6) k/uL RBC 3.25 L (4.30-5.90) m/uL Hgb 11.0 L (13.0-17.5) gm/dL Hct 34.9 L (39.0-53.0) % MCV 107.4 H (80.0-100.0) fL MCH 33.8 (25.0-35.0) pg MCHC 31.4 (31.0-37.0) g/dL RDW 20.3 H (11.5-15.5) % Plt Count 266 (150-450) k/uL PT (9.0-12.0) sec INR (<1.2) APTT (22.0-30.0) sec Sodium 137 (137-145) mmol/L Potassium 5.0 (3.5-5.1) mmol/L Chloride 105 (98-107) mmol/L Carbon Dioxide 23 (22-30) mmol/L Anion Gap 9 mmol/L BUN 23 H (9-20) mg/dL Creatinine 1.10 (0.66-1.25) mg/dL Est GFR (MDRD) Af Amer >60 (>60 ml/min/1.73 sqM) Est GFR (MDRD) Non-Af >60 (>60 ml/min/1.73 sqM) Glucose 89 (74-99) mg/dL Calcium 9.2 (8.4-10.2) mg/dL Magnesium 1.6 (1.6-2.3) mg/dL Total Bilirubin 0.4 (0.2-1.3) mg/dL AST 28 (17-59) U/L ALT 29 (21-72) U/L Alkaline Phosphatase 69 (38-126) U/L Total Creatine Kinase 41 L (55-170) U/L CK-MB (CK-2) 1.8 (0.0-2.4) ng/mL CK-MB (CK-2) Rel Index 4.4 Troponin I 0.023 (0.000-0.034) ng/mL NT-Pro-B Natriuret Pep pg/mL Total Protein 6.6 (6.3-8.2) g/dL Albumin 3.6 (3.5-5.0) g/dL Lipase 448 H (23-300) U/L 04/03/17 04/03/17 Range/Units 17:45 17:45 WBC (3.8-10.6) k/uL RBC (4.30-5.90) m/uL Hgb (13.0-17.5) gm/dL Hct (39.0-53.0) % MCV (80.0-100.0) fL MCH (25.0-35.0) pg MCHC (31.0-37.0) g/dL RDW (11.5-15.5) % Plt Count (150-450) k/uL PT 11.0 (9.0-12.0) sec INR 1.1 (<1.2) APTT 18.1 L (22.0-30.0) sec Sodium (137-145) mmol/L Potassium (3.5-5.1) mmol/L Chloride (98-107) mmol/L Carbon Dioxide (22-30) mmol/L Anion Gap mmol/L BUN (9-20) mg/dL Creatinine (0.66-1.25) mg/dL Est GFR (MDRD) Af Amer (>60 ml/min/1.73 sqM) Est GFR (MDRD) Non-Af (>60 ml/min/1.73 sqM) Glucose (74-99) mg/dL Calcium (8.4-10.2) mg/dL Magnesium (1.6-2.3) mg/dL Total Bilirubin (0.2-1.3) mg/dL AST (17-59) U/L ALT (21-72) U/L Alkaline Phosphatase (38-126) U/L Total Creatine Kinase (55-170) U/L CK-MB (CK-2) (0.0-2.4) ng/mL CK-MB (CK-2) Rel Index Troponin I (0.000-0.034) ng/mL NT-Pro-B Natriuret Pep 4670 pg/mL Total Protein (6.3-8.2) g/dL Albumin (3.5-5.0) g/dL Lipase (23-300) U/L - Radiology Data Radiology results: report reviewed (Chest x-ray is negative for acute disease), image reviewed Critical Care Time Critical Care Time: Yes Total Critical Care Time: 31 Disposition Clinical Impression: Chest pain Disposition: ADMITTED IP TO THIS [facility] Condition: Undetermined Referrals: Edd Collins DO [Primary Care Provider] - 1-2 days
[2017-04-03 18:05] LABS: Anisocytosis Moderate; CH 34.1; CHCM 31.7; HCT 34.9 % (39.0-53.0); HDW 4.07; Hypochromasia Moderate; MCH 33.8 pg (25.0-35.0); MCHC 31.4 g/dL (31.0-37.0); MCV 107.4 fL (80.0-100.0); Macrocytosis Marked; Mean Platelet Volume 7.9; Poikilocytosis Moderate; RBC 3.25 m/uL (4.30-5.90); RDW 20.3 % (11.5-15.5); WBC 6.1 k/uL (3.8-10.6); WBC (Perox) 5.98
[2017-04-03 18:07] LABS: ALT 29 U/L (21-72); AST 28 U/L (17-59); Alkaline Phosphatase 69 U/L (38-126); Anion Gap 9 mmol/L; Blood Urea Nitrogen 23 mg/dL (9-20); Calcium 9.2 mg/dL (8.4-10.2); Carbon Dioxide 23 mmol/L (22-30); Chloride 105 mmol/L (98-107); Glucose 89 mg/dL (74-99); Magnesium 1.6 mg/dL (1.6-2.3); Non-African American GFR(MDRD) >60 (>60 ml/min/1.73 sqM); Sodium 137 mmol/L (137-145); Total Bilirubin 0.4 mg/dL (0.2-1.3); Total Protein 6.6 g/dL (6.3-8.2)
[2017-04-03 18:12] LABS: INR 1.1 (<1.2)
[2017-04-03 18:24] LABS: Partial Thromboplastin Time 18.1 sec (22.0-30.0)
--- NOTE | 2017-04-03 18:28 | XR ---
EXAMINATION TYPE: XR chest 2V DATE OF EXAM: 04/03/2017 COMPARISON: 03/18/2017 HISTORY: Chest pain and atrial fibrillation with recent lobectomy for carcinoma. Chest tube removed 1 0 days ago. TECHNIQUE: Frontal and lateral views of the chest are obtained. FINDINGS: The prominent coarsened reticular pattern of increased density throughout the lung parenchyma, with a ssociated silhouetting of the pulmonary vasculature bilaterally, is redemonstrated and appears unchan ged when compared to the prior study - with the overall lung inflation pattern appearing similar to t he prior study. There is no pneumothorax or other abnormal gas collection. No definite pleural effusion evident. Cardiac silhouette unremarkable. Bones and soft tissues are stable. IMPRESSION: STABLE CHEST RADIOGRAPHIC APPEARANCE - WITH ABNORMAL BILATERAL PULMONARY INTERSTITIAL PATTERN.
[2017-04-03 18:29] LABS: Creatine Kinase MB 1.8 ng/mL (0.0-2.4); Troponin I 0.023 ng/mL (0.000-0.034)
[2017-04-03] MEDS ORDERED: ASPIRIN 81 MG PO STA (18:33)
[2017-04-03] MEDS ORDERED: MORPHINE SULFATE 4 MG/ML SYRINGE IV PRN (18:33)
[2017-04-03] MEDS ORDERED: RX INFO: IV CONTRAST WAS GIVEN 1 EACH MISC MISCELLANE PRN (18:33)
[2017-04-03] MEDS ORDERED: HEPARIN SODIUM,PORCINE 5,000 UNIT/ML 1 ML VIAL IV ONE (18:33)
[2017-04-03] MEDS ORDERED: NITROGLYCERIN SL TABS 0.4 MG TAB SUBLINGUAL PRN (18:33)
[2017-04-03 18:40] LABS: Add Differential Manual Differential
[2017-04-03 18:42] LABS: Band Neutrophils % 2 %; Nucleated Red Blood Cells 0 /100 WBC (0-0); Total Cells Counted 100
[2017-04-03 18:43] LABS: Manual Review Performed; Polychromasia Present
[2017-04-03 18:44] LABS: Large Platelets Present; Ovalocytes Present; Spherocytes Present
[2017-04-03] MEDS: SODIUM CHLORIDE 0.9% 1,000 ML IV SCH (19:00)
[2017-04-03] MEDS: HEPARIN SODIUM,PORCINE/D5W PMX 25,000 UNIT in DEXTROSE/WATER 1 500ML.BAG IV SCH (19:01)
[2017-04-03 20:46] LABS: Glucose,Whole Blood 87 mg/dL (75-99)
--- NOTE | 2017-04-03 20:49 | CT ---
EXAMINATION TYPE: CT angio chest DATE OF EXAM: 04/03/2017 7:57 PM COMPARISON: 07/22/2014 CT HISTORY: Chest pressure today. CT DLP: 302.50 mGycm Automated exposure control for dose reduction was used. CONTRAST: CTA scan of the thorax is performed with IV Contrast, patient injected with 71 mL of Omnipa que 350, pulmonary embolism protocol. . FINDINGS: Soft tissues: The pulmonary arterial tree is widely patent without evidence of pulmonary emboli. Mild cardiomegaly with biatrial enlargement is noted, with prominent left and right coronary arterial abril cifications. Thoracic aorta nonaneurysmal atherosclerotic changes are seen, including ectasia and ath erosclerotic calcifications. Pulmonary/pleura: Severe emphysematous changes are seen throughout the lungs, particularly within the upper lung zones, with associated traction bronchiectasis seen diffusely. A spiculated band of opaci ty is seen throughout the left upper lung zone. There is no evidence of pulmonary edema or bronchopne umonia. The pleural spaces are negative. Visualized subdiaphragmatic structures: Unremarkable. Skeletal structures: Unremarkable. IMPRESSION: 1. NEGATIVE FOR PULMONARY EMBOLISM; NO HYPERACUTE PROCESS. 2. SPICULATED LEFT UPPER LOBE OPACITY NOTED.
[2017-04-03] MEDS ORDERED: BISACODYL 10 MG SUPP RECTAL PRN (21:28)
[2017-04-03] MEDS ORDERED: MAGNESIUM HYDROXIDE 2,400 MG/10 ML CUP PO PRN (21:28)
[2017-04-03] MEDS ORDERED: CALCIUM CARBONATE 500 MG CHEWABLE PO PRN (21:28)
[2017-04-03] MEDS: GABAPENTIN 100 MG CAP PO SCH (22:06)
[2017-04-03] MEDS: DIVALPROEX 500 MG TABLET.DR PO SCH (22:07)
[2017-04-03] MEDS: carBAMazepine 400 MG TAB.ER.12H PO SCH (22:07)
--- NOTE | 2017-04-03 22:59 | HP ---
HISTORY AND PHYSICAL DATE OF ADMISSION: 04/03/2017 PRESENTING COMPLAINT: Chest pain. HISTORY OF PRESENTING COMPLAINT: This is a 67-year-old patient, currently a resident getting rehab by Dr. Collins. Patient was recently in the hospital. He had pneumothorax. 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 Outpatient workup will depend on how patient does from a physical standpoint. Other chronic stable medical conditions include chronic hypoxia, COPD, GERD, hypertension, hyperlipidemia. Patient's speech is slightly affected from a prior stroke. The patient now presents with a pressure-like sensation in the lower sternum, localized. No radiation. The patient was slightly short of breath. It lasted for a good half an hour and he apparently had some relief with nitroglycerin. The patient's thinks when he was around 38 years of age he may have had a heart attack. REVIEW OF SYSTEMS: CONSTITUTIONAL: Tired. HEENT: None. RESPIRATORY: Baseline some shortness of breath. CARDIOVASCULAR: As above. GASTROINTESTINAL: Some heartburn. GENITOURINARY: None. MUSCULOSKELETAL: None. DERMATOLOGICAL: None. HEMATOLOGICAL: None. LYMPHATICS: None. PSYCHIATRY: None. NEUROLOGICAL: Slowness of speech from a prior stroke. PAST MEDICAL HISTORY: 1. Pneumothorax. 2. 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 3. Chronic hypoxic respiratory failure. 4. COPD. 5. Atrial fibrillation. 6. GERD. 7. Hypertension. 8. Hyperlipidemia. 9. Seizure. Last seizure was in about 1994. 10.Stroke. 11.Colon cancer found during colonoscopy. Polyp was adenocarcinoma.. 12.Peptic ulcer disease. 13.Renal insufficiency. 14.Kidney stones. 15.GI bleed with anticoagulation. PAST SURGICAL HISTORY: 1. Laparoscopic sigmoid colectomy. 2. Left hand surgery. 3. Bilateral cataract surgery. 4. Wedge resection of the left upper lobe. SOCIAL HISTORY: Currently a resident of [facility], being followed by Dr. Collins. Uses a cane. Able to walk around a few steps with physical therapy. Patient smoked 4 packs a day for 45 years; stopped in 2006. Alcohol rarely. FAMILY HISTORY: Cancer, type unknown. HOME MEDICATIONS: 1. Prednisone taper. 2. Carbamazepine XR 400 mg p.o. b.i.d. 3. Flomax 0.4 mg a day. 4. Paxil 10 mg a day. 5. [place] Adult 133 mL p.r.n. 6. Toprol XL 25 mg a day. 7. Milk of magnesia 2400 mg p.o. daily p.r.n. 8. DuoNeb q.i.d. 9. Humalog per protocol. 10.[place] 7.5 one tablet q.4 p.r.n. 11.Neurontin 100 mg p.o. t.i.d. 12.Depakote 1000 mg p.o. b.i.d. 13.TUMS 500 mg p.o. q.8 p.r.n. 14.Symbicort 160/4.5 two puffs b.i.d. ALLERGIES: 1. INFLUENZA VIRUS VACCINE. 2. PNEUMOCOCCAL VACCINE. PHYSICAL EXAMINATION: Temperature 97.6, pulse 95, respiratory rate 18, blood pressure 170/75, pulse ox 100% on 2 L. GENERAL APPEARANCE: Thin build. Lying in bed, tired-appearing. Somewhat unkempt. EYES: Pupils equal. Conjunctivae normal. HEENT: Oral cavity normal. NECK: JVD not raised. Mass not palpable. RESPIRATORY: Effort increased. LUNGS: Decreased breath sounds. Some mild wheezing. Scattered crackles. CARDIOVASCULAR: First and second sounds irregular. No edema. ABDOMEN: Soft, nontender. Liver and spleen not palpable. LYMPHATIC: No lymph node palpable in neck or axillae. PSYCHIATRY: Awake. Answering questions. NEUROLOGICAL: Speech is slightly slow. Power and sensation grossly intact. INVESTIGATIONS: White count 6.1, hemoglobin 11, platelets 266. Potassium 5. BUN 23, creatinine 1.10. Glucose 87. Chest x-ray stable; some chronic interstitial patterns. Chest CTA is negative for PE. Spiculated left upper lobe opacity noted. EKG shows atrial fibrillation, rate controlled. ASSESSMENT: 1. Anterior chest wall pain in a patient who has multiple cardiac risk factors with a questionable history of myocardial infarction in the past, likely cardiac in nature. 2. Left upper lung mass with recent wedge resection showing squamous cell carcinoma. 3. Chronic hypoxic respiratory failure with underlying chronic obstructive pulmonary disease. 4. Chronic obstructive pulmonary disease in an ex-smoker. 5. Persistent atrial fibrillation, rate controlled. 6. Chronic dysarthria from prior stroke. 7. Gastroesophageal reflux disease. 8. Essential hypertension. 9. Hyperlipidemia. 10.Seizure disorder. PLAN: Home medications are resumed. Serial cardiac enzymes are in place. Cardiology was consulted. Care was discussed with the patient. The patient is already on IV heparin. Home medications are resumed. Will also have Dr. Nazario from Pulmonary, to whom the patient is known, follow up. Questions were answered. MMSINCEREL / MAYELAN: [id number] /
[2017-04-04 01:45] LABS: Creatine Kinase MB 1.8 ng/mL (0.0-2.4)
[2017-04-04 01:50] LABS: Troponin I 0.047 ng/mL (0.000-0.034)
[2017-04-04] MEDS: HYDROcodone/APAP 7.5-325MG 1 EACH TAB PO PRN ×2 (04:25→23:02)
[2017-04-04] MEDS: SYMBICORT 160-4.5 MCG INHALER INHALATION SCH ×2 (07:14→19:30)
[2017-04-04] MEDS: IPRATROPIUM-ALBUTEROL 3 ML NEB IH SCH ×4 (07:14→20:14)
[2017-04-04 07:15] LABS: Cholesterol 135 mg/dL (<200); HDL Cholesterol 57 mg/dL (40-60)
[2017-04-04 07:36] LABS: Creatine Kinase MB 1.7 ng/mL (0.0-2.4)
[2017-04-04 07:42] LABS: Troponin I 0.047 ng/mL (0.000-0.034)
[2017-04-04] MEDS: HEPARIN SODIUM,PORCINE 5,000 UNIT/ML 1 ML VIAL IV PRN ×2 (08:28→19:22)
--- NOTE | 2017-04-04 08:48 | P.CRDCN ---
History of Present Illness Consult date: 04/04/17 Requesting physician: Alex Cassidy Consult reason: chest pain Chief complaint: Chest pain History of present illness: This is a 67-year-old gentleman with history of hypertension, hyperlipidemia, chronic persistent atrial fibrillation, prior CVA, COPD, patient was recently discharged from the hospital, he was admitted at that time with a left-sided pneumothorax and bilateral pneumonia. Patient was also noted on that admission to have a left upper lobe nodule with CT-guided biopsy. He is found to have squamous cell lung cancer and oncology was following. He was at [facility] for rehab, Patient states he developed a pressure sensation in the center of his chest, patient states his breathing worsened, he denies any diaphoresis or nausea. Patient also complains of pain in his left side where the prior chest tube was in place. Chest x-ray was performed which revealed abnormal bilateral pulmonary interstitial pattern. CTA of the chest was performed which was negative for pulmonary embolism, spiculated left upper lobe opacity noted. EKG shows atrial fibrillation with a controlled ventricular response. Upon review of the patient's home medications, it does not appear he is on anticoagulation for his atrial fibrillation. Blood pressure 135/60, heart rate in the 80s, respirations 18. Hemoglobin 11, white blood cell count 6.1, platelet count 266. Sodium 137, potassium 5.0, BUN 23, creatinine 1.1. Magnesium level I.6, troponin 0.0-3, 0.047, 0.047. BNP level 4670. At the time of my examination this morning, he denies any further chest discomfort, complains of some left-sided discomfort in the area of his prior chest tube. Past Medical History Past Medical History: Atrial Fibrillation, Cancer, Chest Pain / Angina, COPD, CVA/TIA, GERD/Reflux, GI Bleed, Hyperlipidemia, Hypertension, Myocardial Infarction ([place]), Musculoskeletal Disorder, Renal Disease, Seizure Disorder Additional Past Medical History / Comment(s): colonoscopy then laparoscopic sigmoid colectomy for adenocarcinoma was performed on 07/19/14. Other HX: colon cancer found during colonoscopy-polyp which was adenocarcinoma, SQUAMOUS CELL CARCINOMA LT UPPER LOBE. ULCER; EPILEPTIC - STATES LAST SEIZURE PREV TO 1994; CVA - AFFECTS SPEECH/able to print but not write in cursive. UNABLE TO COMPLETELY CLOSE LEFT HAND R/T hx of LARGE LACERATION. HX OF RT HIP DISORDER, WORE CAST, THEN BRACE FOR 2 YRS, chronic low back pain, renal cysts and kidney stones, GI bleed associated with anticoaulation. Has home O2 which he uses when necessary Last Myocardial Infarction Date:: patient reports 19 years ago History of Any Multi-Drug Resistant Organisms: None Reported Past Surgical History: Orthopedic Surgery Additional Past Surgical History / Comment(s): 07/19/14 Laparoscopic sigmoid colectomy. LEFT HAND SX, EXC VILMA CATARACTS; COLONOSCOPY 05/26/14.BRONCH/BX- PNUEMOTHORAX/CHEST TUBE /WEDGE RESECTION TUMOR LT UPPER LOBE. Past Anesthesia/Blood Transfusion Reactions: No Reported Reaction Smoking Status: Former smoker - Past Family History Father Family Medical History: CVA/TIA Mother Family Medical History: Cancer Medications and Allergies Home Medications Medication Instructions Recorded Confirmed Type Budesonide-Formot 160-4.5 Mcg 2 puff INHALATION RT-BID 05/22/14 04/03/17 History [Symbicort 160-4.5 Mcg Inhaler] Divalproex [Depakote] 1,000 mg PO BID@0800,1700 05/22/14 04/03/17 History carBAMazepine [carBAMazepine XR] 400 mg PO BID 05/22/14 04/03/17 History Ipratropium-Albuterol Nebulize 3 ml IH RT-QID neb 03/22/17 04/03/17 Rx [Duoneb 0.5 mg-3 mg/3 ml Soln] Metoprolol Succinate (ER) [Toprol 25 mg PO DAILY tab 03/22/17 04/03/17 Rx XL] PARoxetine [Paxil] 10 mg PO DAILY tab 03/22/17 04/03/17 Rx Bisacodyl [Dulcolax] 10 mg RECTAL DAILY PRN 04/03/17 04/03/17 History Calcium Carbonate [Tums] 500 mg PO Q8H PRN 04/03/17 04/03/17 History Gabapentin [Neurontin] 100 mg PO TID 04/03/17 04/03/17 History HYDROcodone/APAP 7.5-325MG [[place] 1 tab PO Q4H PRN 04/03/17 04/03/17 History 7.5-325] INSULIN LISPRO (HumaLOG) [HumaLOG] See Protocol SQ ACHS 04/03/17 04/03/17 History Magnesium Hydroxide [Milk of 2,400 mg PO DAILY PRN 04/03/17 04/03/17 History Magnesia] Na Phos,M-B/Na Phos,Di-Ba [Fleet 133 ml RECTAL ONCE PRN 04/03/17 04/03/17 History Adult] Tamsulosin [Flomax] 0.4 mg PO QAM 04/03/17 04/03/17 History predniSONE See Taper PO DAILY 04/03/17 04/03/17 History Allergies Allergy/AdvReac Type Severity Reaction Status Date / Time Influenza Virus Vaccines Allergy Unknown Verified 04/03/17 21:12 pneumococcal vaccine Allergy Unknown Verified 04/03/17 21:12 Physical Exam Vitals: Vital Signs Temp Pulse Pulse Resp BP BP Pulse Ox 04/04/17 07:31 84 04/04/17 07:15 84 04/04/17 04:00 96.9 F L 87 18 135/64 94 L 04/04/17 00:00 97.9 F 71 18 125/75 97 04/03/17 23:55 18 04/03/17 21:32 18 04/03/17 20:18 97.6 F 95 18 170/95 100 04/03/17 19:00 97.1 F L 85 17 150/70 96 04/03/17 17:29 98.2 F 79 22 128/66 95 Intake and Output 04/03/17 04/04/17 04/04/17 22:59 06:59 14:59 Intake Total 131.813 Balance 131.813 Intake: Intake, IV Titration 131.813 Amount Heparin Sodium,Porcine/ 131.813 D5w Pmx 25,000 unit In Dextrose/Water 1 500ml. bag @ 12 UNITS/KG/HR 16. 65 mls/hr IV .Q24H [facility] Rx #:[id number] Other: # Voids 1 0 Weight 69.4 kg 72.8 kg PHYSICAL EXAMINATION: HEENT: Head is atraumatic, normocephalic. Pupils equal, round. Neck is supple. There is elevated jugular venous pressure. HEART EXAMINATION: Heart S1 and S2 irregularly irregular a systolic murmur is heard CHEST EXAMINATION: Lungs reveal crackles bilaterally with diminished air entry to the bases. ABDOMEN: Soft, nontender. Bowel sounds are heard. No organomegaly noted. Positive tenderness at the left flank area EXTREMITIES: 1+ peripheral pulses with no evidence of peripheral edema and no calf tenderness noted. NEUROLOGIC [patient is awake, alert and oriented -3.] . Results 04/04/17 06:21 04/03/17 17:45 Cardiac Enzymes 04/03/17 04/03/17 04/04/17 Range/Units 17:45 17:45 00:27 AST 28 (17-59) U/L CK-MB (CK-2) 1.8 1.8 (0.0-2.4) ng/mL Troponin I 0.023 0.047 H* (0.000-0.034) ng/mL 04/04/17 Range/Units 06:21 AST (17-59) U/L CK-MB (CK-2) 1.7 (0.0-2.4) ng/mL Troponin I 0.047 H* (0.000-0.034) ng/mL Coagulation 04/03/17 04/04/17 04/04/17 Range/Units 17:45 00:27 06:21 PT 11.0 (9.0-12.0) sec APTT 18.1 L 30.9 H 30.7 H (22.0-30.0) sec Lipids 04/04/17 Range/Units 06:21 Triglycerides 76 (<150) mg/dL Cholesterol 135 (<200) mg/dL HDL Cholesterol 57 (40-60) mg/dL CBC 04/03/17 04/04/17 Range/Units 17:45 06:21 WBC 6.1 (3.8-10.6) k/uL RBC 3.25 L (4.30-5.90) m/uL Hgb 11.0 L (13.0-17.5) gm/dL Hct 34.9 L (39.0-53.0) % Plt Count 266 226 (150-450) k/uL Comprehensive Metabolic Panel 04/03/17 Range/Units 17:45 Sodium 137 (137-145) mmol/L Potassium 5.0 (3.5-5.1) mmol/L Chloride 105 (98-107) mmol/L Carbon Dioxide 23 (22-30) mmol/L BUN 23 H (9-20) mg/dL Creatinine 1.10 (0.66-1.25) mg/dL Glucose 89 (74-99) mg/dL Calcium 9.2 (8.4-10.2) mg/dL AST 28 (17-59) U/L ALT 29 (21-72) U/L Alkaline Phosphatase 69 (38-126) U/L Total Protein 6.6 (6.3-8.2) g/dL Albumin 3.6 (3.5-5.0) g/dL Current Medications Generic Name Dose Route Start Last Admin Trade Name Freq PRN Reason Stop Dose Admin Hydrocodone Bitart/Acetaminophen 1 each 04/03/17 21:28 04/04/17 04:25 [place] 7.5-325 PO 1 each Q4H PRN Administration Pain Albuterol/Ipratropium 3 ml 04/04/17 08:00 04/04/17 07:14 Duoneb 0.5 Mg-3 Mg/3 Ml Soln IH 3 ml RT-QID RADHA Administration Aspirin 325 mg 04/04/17 09:00 Aspirin PO DAILY RADHA Bisacodyl 10 mg 04/03/17 21:28 Dulcolax RECTAL DAILY PRN Constipation Budesonide/Formoterol Fumarate 2 puff 04/04/17 08:00 04/04/17 07:14 Symbicort 160-4.5 Mcg Inhaler INHALATION 2 puff RT-BID RADHA Administration Calcium Carbonate/Glycine 500 mg 04/03/17 21:28 Tums PO Q8H PRN UPSET STOMACH Carbamazepine 400 mg 04/03/17 21:30 04/03/17 22:07 Tegretol Xr PO 400 mg BID RADHA Administration Divalproex Sodium 1,000 mg 04/03/17 21:28 04/03/17 22:07 Depakote PO 1,000 mg BID@0800,1700 RADHA Administration Gabapentin 100 mg 04/03/17 22:00 04/03/17 22:06 Neurontin PO 100 mg TID RADHA Administration Heparin Sodium (Porcine) 0 unit 04/03/17 18:33 Heparin IV Q6HR PRN Low PTT Protocol Heparin Sodium/Dextrose 25,000 500 mls @ 16.65 mls/hr 04/03/17 18:45 02:56 unit/ IV Solution IV 15 units/kg/hr .Q24H RADHA 20.82 mls/hr Protocol Titration 12 UNITS/KG/HR Sodium Chloride 1,000 mls @ 20 mls/hr 04/03/17 18:45 04/03/17 19:00 Saline 0.9% IV 20 mls/hr .Q24H RADHA Administration Magnesium Hydroxide 2,400 mg 04/03/17 21:28 Milk Of Magnesia PO DAILY PRN Constipation Metoprolol Succinate 25 mg 04/04/17 09:00 Toprol Xl PO DAILY RADHA Miscellaneous Information 1 each 04/03/17 18:33 Rx Info: Iv Contrast Was Given MISCELLANE 04/05/17 18:34 DAILY PRN Per Protocol Morphine Sulfate 4 mg 04/03/17 18:33 Morphine Sulfate (Inj) IV Q5M PRN Chest Pain Nitroglycerin 0.4 mg 04/03/17 18:33 Nitrostat SUBLINGUAL Q5M PRN Chest Pain Paroxetine HCl 10 mg 04/04/17 09:00 Paxil PO DAILY RADHA Tamsulosin HCl 0.4 mg 04/04/17 09:00 Flomax PO QAM RADHA Intake and Output 04/03/17 04/04/17 04/04/17 22:59 06:59 14:59 Intake Total 131.813 Balance 131.813 Intake: Intake, IV Titration 131.813 Amount Heparin Sodium,Porcine/ 131.813 D5w Pmx 25,000 unit In Dextrose/Water 1 500ml. bag @ 12 UNITS/KG/HR 16. 65 mls/hr IV .Q24H [facility] Rx #:[id number] Other: # Voids 1 0 Weight 69.4 kg 72.8 kg 04/04/17 06:21 04/03/17 17:45 EKG Interpretations (text) EKG shows atrial fibrillation with a controlled ventricular response Assessment and Plan Plan: Assessment and plan #1 Symptoms of chest discomfort, atypical in nature. EKG shows atrial fibrillation with a controlled ventricular response. Troponins 0.0-3, 0.047, 0.047. #2 recent hospital admission with bilateral pneumonia, pneumothorax. Upper lung mass which revealed squamous cell carcinoma. #3 COPD #4 prior myocardial infarction at the age of 38, no cardiac catheterization performed at that time according to the patient #5 hypertension #6 hyperlipidemia #7 prior CVA #8 chronic persistent atrial fibrillation, not on anticoagulation #9 congestive cardiac failure LV function unknown. Plan We will obtain an echocardiogram with Doppler study. We'll also review prior records to see why the patient is not on anticoagulation. Chest x-rays were suggestive of pulmonary fibrosis, we will give the patient one time dose of IV Lasix 40 mg then start him on oral Lasix tomorrow. We recommend the patient to undergo dobutamine echocardiographic study today. Decrease aspirin 81 mg daily, and initiate statin, check fasting lipid profile. Continue beta mtat. Further recommendations to follow. DNP note has been reviewed, I agree with a documented findings and plan of care. Patient was seen and examined.
[2017-04-04] MEDS ORDERED: FUROSEMIDE 10 MG/ML 4 ML VIAL IV STA (08:51)
[2017-04-04] MEDS ORDERED: ASPIRIN 325 MG TAB PO SCH (09:00)
[2017-04-04] MEDS: ASPIRIN 81 MG PO SCH (09:29)
[2017-04-04] MEDS: GABAPENTIN 100 MG CAP PO SCH ×3 (09:30→21:06)
[2017-04-04] MEDS: DIVALPROEX 500 MG TABLET.DR PO SCH ×2 (09:30→17:41)
[2017-04-04] MEDS: PARoxetine 10 MG TAB PO SCH (09:31)
[2017-04-04] MEDS: carBAMazepine 400 MG TAB.ER.12H PO SCH ×2 (09:31→21:06)
[2017-04-04] MEDS: TAMSULOSIN 0.4 MG CAP.ER.24H PO SCH (09:34)
[2017-04-04] MEDS ORDERED: DOBUTamine DRIP for NUC MED 500 MG in DEXTROSE/WATER 1 250ML.BAG IV ONE (10:13)
--- NOTE | 2017-04-04 10:35 | P.CNPUL ---
History of Present Illness Consult date: 04/04/17 Requesting physician: Alex Cassidy Reason for consult: abnormal CXR/CT Chief complaint: shortness of breath/chest pain History of present illness: This is a 67-year-old male patient being seen examined and evaluated today. This patient is well-known to our services. The patient had a computed tomography scan on 8:15 and was found to have a suspicious nodule of his left upper lobe. He then had a PET scan which did show suspicious uptake of the nodule. He was admitted to [facility] for pneumonia and at that time he did go a FNA of left neck nodules. Came back nondiagnostic. A CT- guided biopsy of the left lung nodule was then attempted and lead to a pneumothorax. Patient did have a chest tube inserted at that time and was transferred over to [facility]. During that stay the cardiothoracic surgeon was consult it and the patient had a chest tube placement with a ventral resolution of the pneumothorax. He also had oral apical wedge biopsy of the left lung nodule on 03/10/2017 the came back positive for squamous cell lung cancer. Of note the patient is noted to have chronic hypoxia, COPD GERD hypertension hyperlipidemia. He came into the emergency room from [facility] where he was at for rehab, with chest pressure in the lowers sternum with no radiation. The patient was short of breath at that time as well the patient did have nitroglycerin with minimal relief. Chest x-ray was reviewed and shows abnormal bilateral pulmonary interstitial pattern. Patient also underwent a CTA of the chest which showed negative for pulmonary embolism, spiculated left upper lobe appears edema noted. His EKG did show atrial fibrillation with controlled ventricular response. Upon examination the patient's resting up in bed on his of supplemental oxygen via nasal cannula. Patient states he no longer has any chest discomfort however does have some left-sided discomfort that is dull which is the area where his chest tube was previously placed. Patient states he has had this dull ache since the chest tube placement however has decreased in severity. Currently he is hemodynamically stable. All labs and reports have been reviewed. Of note the patient did have troponins trends of 0.023, 0.047, 0.047. Review of Systems 14 point review of systems was completed and is negative unless noted above in the HPI. Past Medical History Past Medical History: Atrial Fibrillation, Cancer, Chest Pain / Angina, COPD, CVA/TIA, GERD/Reflux, GI Bleed, Hyperlipidemia, Hypertension, Myocardial Infarction ([place]), Musculoskeletal Disorder, Renal Disease, Seizure Disorder Additional Past Medical History / Comment(s): colonoscopy then laparoscopic sigmoid colectomy for adenocarcinoma was performed on 07/19/14. Other HX: colon cancer found during colonoscopy-polyp which was adenocarcinoma, SQUAMOUS CELL CARCINOMA LT UPPER LOBE. ULCER; EPILEPTIC - STATES LAST SEIZURE PREV TO 1994; CVA - AFFECTS SPEECH/able to print but not write in cursive. UNABLE TO COMPLETELY CLOSE LEFT HAND R/T hx of LARGE LACERATION. HX OF RT HIP DISORDER, WORE CAST, THEN BRACE FOR 2 YRS, chronic low back pain, renal cysts and kidney stones, GI bleed associated with anticoaulation. Has home O2 which he uses when necessary Last Myocardial Infarction Date:: patient reports 19 years ago History of Any Multi-Drug Resistant Organisms: None Reported Past Surgical History: Orthopedic Surgery Additional Past Surgical History / Comment(s): 07/19/14 Laparoscopic sigmoid colectomy. LEFT HAND SX, EXC VILMA CATARACTS; COLONOSCOPY 05/26/14.BRONCH/BX- PNUEMOTHORAX/CHEST TUBE /WEDGE RESECTION TUMOR LT UPPER LOBE. Past Anesthesia/Blood Transfusion Reactions: No Reported Reaction Smoking Status: Former smoker - Past Family History Father Family Medical History: CVA/TIA Mother Family Medical History: Cancer Medications and Allergies Home Medications Medication Instructions Recorded Confirmed Type Budesonide-Formot 160-4.5 Mcg 2 puff INHALATION RT-BID 05/22/14 04/03/17 History [Symbicort 160-4.5 Mcg Inhaler] Divalproex [Depakote] 1,000 mg PO BID@0800,1700 05/22/14 04/03/17 History carBAMazepine [carBAMazepine XR] 400 mg PO BID 05/22/14 04/03/17 History Ipratropium-Albuterol Nebulize 3 ml IH RT-QID neb 03/22/17 04/03/17 Rx [Duoneb 0.5 mg-3 mg/3 ml Soln] Metoprolol Succinate (ER) [Toprol 25 mg PO DAILY tab 03/22/17 04/03/17 Rx XL] PARoxetine [Paxil] 10 mg PO DAILY tab 03/22/17 04/03/17 Rx Bisacodyl [Dulcolax] 10 mg RECTAL DAILY PRN 04/03/17 04/03/17 History Calcium Carbonate [Tums] 500 mg PO Q8H PRN 04/03/17 04/03/17 History Gabapentin [Neurontin] 100 mg PO TID 04/03/17 04/03/17 History HYDROcodone/APAP 7.5-325MG [[place] 1 tab PO Q4H PRN 04/03/17 04/03/17 History 7.5-325] INSULIN LISPRO (HumaLOG) [HumaLOG] See Protocol SQ ACHS 04/03/17 04/03/17 History Magnesium Hydroxide [Milk of 2,400 mg PO DAILY PRN 04/03/17 04/03/17 History Magnesia] Na Phos,M-B/Na Phos,Di-Ba [Fleet 133 ml RECTAL ONCE PRN 04/03/17 04/03/17 History Adult] Tamsulosin [Flomax] 0.4 mg PO QAM 04/03/17 04/03/17 History predniSONE See Taper PO DAILY 04/03/17 04/03/17 History Allergies Allergy/AdvReac Type Severity Reaction Status Date / Time Influenza Virus Vaccines Allergy Unknown Verified 04/03/17 21:12 pneumococcal vaccine Allergy Unknown Verified 04/03/17 21:12 Physical Exam Vitals: Vital Signs Temp Pulse Pulse Resp BP BP Pulse Ox 04/04/17 07:31 84 04/04/17 07:15 84 04/04/17 04:00 96.9 F L 87 18 135/64 94 L 04/04/17 00:00 97.9 F 71 18 125/75 97 04/03/17 23:55 18 04/03/17 21:32 18 04/03/17 20:18 97.6 F 95 18 170/95 100 04/03/17 19:00 97.1 F L 85 17 150/70 96 04/03/17 17:29 98.2 F 79 22 128/66 95 Intake and Output 04/03/17 04/04/17 04/04/17 22:59 06:59 14:59 Intake Total 131.813 117.633 Output Total 375 Balance 131.813 -257.367 Intake: Intake, IV Titration 131.813 117.633 Amount Heparin Sodium,Porcine/ 131.813 117.633 D5w Pmx 25,000 unit In Dextrose/Water 1 500ml. bag @ 12 UNITS/KG/HR 16. 65 mls/hr IV .Q24H [facility] Rx #:[id number] Output: Urine 375 Other: # Voids 1 0 Weight 69.4 kg 72.8 kg GENERAL EXAM: Alert, active, comfortable in no apparent distress. HEAD: Normocephalic. EYES: Normal reaction of pupils, equal size. NOSE: Clear with pink turbinates. THROAT: No erythema or exudates. NECK: No masses, no JVD. CHEST: No chest wall deformity. LUNGS: Lungs noted to be coarse with some faint bilateral crackles. Bases diminished CVS: S1 and S2 normal with no audible mumurs, irregular rhythm. ABDOMEN: No hepatosplenomegaly, normal bowel sounds, no guarding or rigidity. EXTREMITIES: No edema noted, pedal pulses palpable. SKIN: No rashes CENTRAL NERVOUS SYSTEM: No focal deficits, tone is normal in all 4 extremities. Results - Laboratory Findings CBC and BMP: 04/04/17 06:21 04/03/17 17:45 PT/INR, D-dimer PT 11.0 sec (9.0-12.0) 04/03/17 17:45 INR 1.1 (<1.2) 04/03/17 17:45 Abnormal lab findings: Abnormal Labs 04/03/17 04/03/17 04/03/17 17:45 17:45 17:45 RBC 3.25 L Hgb 11.0 L Hct 34.9 L MCV 107.4 H RDW 20.3 H APTT BUN 23 H Total Creatine Kinase 41 L Troponin I Lipase 448 H 04/03/17 04/04/17 04/04/17 17:45 00:27 00:27 RBC Hgb Hct MCV RDW APTT 18.1 L 30.9 H BUN Total Creatine Kinase 31 L Troponin I 0.047 H* Lipase 04/04/17 04/04/17 06:21 06:21 RBC Hgb Hct MCV RDW APTT 30.7 H BUN Total Creatine Kinase 26 L Troponin I 0.047 H* Lipase - Diagnostic Findings Chest x-ray: report reviewed, image reviewed CT scan - chest: report reviewed, image reviewed Assessment and Plan Plan: Assessment Atypical chest pain, cardiology consult Acute on chronic hypoxic respiratory failure and underlying COPD Recent bilateral pneumonia with pneumothorax, history of upper lung mass which revealed squamous cell carcinoma requiring a wedge resection Atrial fibrillation with a controlled ventricular response History of COPD Hypertension Hyperlipidemia History of CVA Plan Medications have been reviewed and will be continued as ordered. Patient will be receiving a 1 time dose of Lasix this morning and started on oral Lasix tomorrow per cardiology. Patient will undergo an echocardiogram today. Meds have been adjusted by cardiology. Patient states he wants no further workup in regards to any invasive pulmonary procedures. Continue with pulmonary hygiene, coughing and deep breathing exercises, and supportive care. Supplemental oxygen to maintain oxygen saturations of 92% or better. Continue nebulizer treatments. GI and DVT prophylaxis. We will continue to monitor labs/results and adjust treatment as necessary. Further recommendations pending. I performed an examination of the patient and discussed their management with the nurse practitioner. I have reviewed the nurse practitioner's note and agree with the documented findings and plan of care.
[2017-04-04] MEDS: METOPROLOL SUCCINATE (ER) 25 MG TAB.ER.24H PO SCH (11:49)
--- NOTE | 2017-04-04 12:04 | ECHOF ---
Referral Reason:chest pain MEASUREMENTS -------- HEIGHT: 177.8 cm WEIGHT: 72.6 kg BP: 135/64 RVIDd: 2.5 cm (< 3.3) IVSd: 1.2 cm (0.6 - 1.1) LVIDd: 4.5 cm (3.9 - 5.3) LVPWd: 1.2 cm (0.6 - 1.1) IVSs: 1.6 cm LVIDs: 2.5 cm LVPWs: 1.6 cm LA Diam: 4.2 cm (2.7 - 3.8) LAESV Index (A-L): 58.23 ml/m Ao Diam: 3.6 cm (2.0 - 3.7) AV Cusp: 1.9 cm (1.5 - 2.6) MV EXCURSION: 17.570 mm (> 18.000) MV EF SLOPE: 138 mm/s (70 - 150) EPSS: 0.3 cm FINDINGS -------- This was a technically difficult study with suboptimal views. The left ventricular size is normal. There is mild concentric left ventricular hypertrophy. Overall left ventricular systolic function is low-normal with, an EF between 50 - 55 %. The right ventricle is normal in size. LA is severely dilated >40 ml/m2 The right atrium was not well visualized. 1.5mg of Definity was utilized for enhancement of images There is mild aortic valve sclerosis. The mitral valve leaflets are mildly thickened. Mild mitral annular calcification present. The tricuspid valve was not well visualized. The pulmonic valve was not well visualized. The aortic root size is normal. Normal inferior vena cava with normal inspiratory collapse consistent with estimated right atrial pressure of 5 mmHg. There is no pericardial effusion. CONCLUSIONS -------- 1. This was a technically difficult study with suboptimal views. 2. The mitral valve leaflets are mildly thickened. 3. Mild mitral annular calcification present. 4. The tricuspid valve was not well visualized. 5. The pulmonic valve was not well visualized. 6. The aortic root size is normal. 7. Normal inferior vena cava with normal inspiratory collapse consistent with estimated right atrial pressure of 5 mmHg. 8. There is no pericardial effusion. 9. The left ventricular size is normal. 10. There is mild concentric left ventricular hypertrophy. 11. Overall left ventricular systolic function is low-normal with, an EF between 50 - 55 %. 12. The right ventricle is normal in size. 13. LA is severely dilated >40 ml/m2 14. The right atrium was not well visualized. 15. 1.5mg of Definity was utilized for enhancement of images 16. There is mild aortic valve sclerosis. ICU RN: Jeanne Simon RDCS
--- NOTE | 2017-04-04 13:00 | EST ---
EXERCISE STRESS AGE: 67 SEX: M HT: 70 WT: 160 PROTOCOL: DOBUTAMINE STRESS ECHOCARDIOGRAM STAGE: 3 DURATION OF EXERCISE: 8:30 HEART RATE REST: 83 BLOOD PRESSURE REST: 123/48 MAXIMUM HEART RATE ACHIEVED: 151 MAXIMUM BLOOD PRESSURE: 152/41 85% MPHR: 128 100% MPHR: 151 INDICATIONS: Chest pain. CLINICAL INFORMATION: STRESS DATA: Pretesting physical examination showed a heart rate of 83, pressure is 123/48 mmHg. Baseline EKG showed sinus mechanism. Dobutamine infusion at a dose of 10 mcg/kg per minute was initiated and increased to 30 mcg/kg per minute per protocol. Max heart rate was 151, which is about 100% of maximum predicted heart rate. Maximum blood pressure was 152/41 mmHg. The baseline EKG showed A. fib. Clinically, the patient did not have any symptoms of chest pain or discomfort. The EKG showed A. fib without any significant or ischemic ST or T-wave abnormalities consistent with ischemia. ECHOCARDIOGRAM IMAGES: On echocardiogram images from parasternal long axis view, parasternal short axis view, apical 4 chambers and apical 2 chamber view were obtained as a baseline images, at the peak of the heart rate, as well as on recovery and the echocardiogram images showed good augmentation in the left ventricular systolic function without any evidence of wall motion abnormalities consistent with ischemia. CONCLUSION: 1. Normal EKG response to dobutamine. 2. No echocardiogram in response to dobutamine. MMODL / IJN: [id number] /
[2017-04-04] MEDS: HEPARIN SODIUM,PORCINE/D5W PMX 25,000 UNIT in DEXTROSE/WATER 1 500ML.BAG IV SCH (14:24)
--- NOTE | 2017-04-04 14:50 | P.PN ---
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 Prior stroke left patient with a slight speech deficit. Presented with pressure sensation in the lower sternal area no radiation. Shortness of breath lasted for half an hour relieved with nitroglycerin sublingual. INTERVAL HISTORY: 04/04/2017: Patient seen in follow-up, lying in bed appears comfortable. Echocardiogram being performed, no further episodes of chest pain or shortness of breath. Tolerating his diet, eating 50-75% of his meal, ambulatory with assistance. Last BM 2 days ago. REVIEW OF SYSTEMS: Done for constitutional ,cardiovascular, GI, pulmonary with relevant findings as above. CURRENT MEDICATIONS [place], DuoNeb's, aspirin, Lipitor, Symbicort, Tegretol-XR, Depakote, Neurontin, heparin IV, metoprolol 25 mg by mouth daily, Paxil 10 mg by mouth daily, Flomax 0.4 mg by mouth every morning. PHYSICAL EXAM VITAL SIGNS: Temperature 97.5, pulse 85, respiratory rate 18, blood pressure 111/54, oxygen saturation 98% on 2 L GENERAL APPEARANCE: Lying in bed, not in distress. EYES: Pupils equal. Conjunctiva normal. NECK: JVD unable to assess. Mass not palpable. RESPIRATORY: Respiratory effort normal. Lungs diminished breath sounds with mild wheezing scattered crackles noted to auscultation. CARDIOVASCULAR: First and second sounds normal. No edema. ABDOMEN: Soft. Liver and spleen not palpable. No tenderness. No mass palpable. PSYCHIATRY: Alert and oriented x3. Mood and affect normal. NEUROLOGICAL: Speech is slightly slow, power and sensation grossly intact. INVESTIGATIONS: Troponin 0.047, 0.047 Echocardiogram: EF of 50-55%, technically difficult study suboptimal views, LA severely dilated Dobutamine stress echo: Normal EKG response to dobutamine, no echocardiogram in response to dobutamine. ASSESSMENT: -Anterior chest wall chest pain in a patient who has multiple cardiac risk factors with questionable history of myocardial infarction in the past likely cardiac in nature-stress test negative -Left upper lung mass with recent wedge resection showing squamous cell carcinoma. -Chronic hypoxic respiratory failure with underlying chronic obstructive pulmonary disease. -Chronic obstructive pulmonate disease in ex-smoker. -Persistent atrial flutter fibrillation rate controlled. -Chronic dysarthria from prior stroke. -Gastroesophageal reflux disease. -Essential hypertension. -Hyperlipidemia. -Seizure disorder. PLAN: Patient received a one-time dose of Lasix to be continued on oral Lasix beginning tomorrow, cardiology investigating why patient is not on anticoagulation. patient requests no further workup regarding any invasive pulmonary procedures, continue nebulized treatments. Plan of care discussed with the patient the bedside we'll continue to follow closely. 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 Cassidy
[2017-04-04] MEDS ORDERED: ATORVASTATIN 40 MG TAB PO SCH (21:00)
--- NOTE | 2017-04-04 21:24 | PN ---
PROGRESS NOTE DATE OF SERVICE: April 04, 2017. ATTENDING NOTE: Patient seen examined by me. I discussed with nurse practitioner, Ms. Mayer. This patient presented with chest pain. Had a negative dobutamine echocardiogram. PHYSICAL EXAM: Lungs decreased breath sounds. CARDIOVASCULAR: First and second sounds normal. Patient will be taken off IV heparin. ASSESSMENT: 1. Chest pain. Anterior wall could be angina with negative stress test. 2. Status post wedge resection of a squamous cell carcinoma of the left lung. I discussed with Dr. Nazario, what has been reported in the CT scan is probably residual tissue. He will need to followed up as an outpatient. MMODL / IJN: [id number] /
[2017-04-05 06:35] LABS: Mean Platelet Volume 7.9
[2017-04-05] MEDS: SODIUM CHLORIDE 0.9% 1,000 ML IV SCH (07:46)
[2017-04-05] MEDS: HEPARIN SODIUM,PORCINE/D5W PMX 25,000 UNIT in DEXTROSE/WATER 1 500ML.BAG IV SCH (07:50)
[2017-04-05] MEDS: METOPROLOL SUCCINATE (ER) 25 MG TAB.ER.24H PO SCH (07:52)
[2017-04-05] MEDS: GABAPENTIN 100 MG CAP PO SCH (07:52)
[2017-04-05] MEDS: DIVALPROEX 500 MG TABLET.DR PO SCH (07:52)
[2017-04-05] MEDS: carBAMazepine 400 MG TAB.ER.12H PO SCH (07:52)
[2017-04-05] MEDS: TAMSULOSIN 0.4 MG CAP.ER.24H PO SCH (07:52)
[2017-04-05] MEDS: PARoxetine 10 MG TAB PO SCH (07:52)
[2017-04-05] MEDS: ASPIRIN 81 MG PO SCH (07:52)
[2017-04-05 07:59] VITALS: TEMP 97.8
[2017-04-05] MEDS: SYMBICORT 160-4.5 MCG INHALER INHALATION SCH (08:44)
[2017-04-05] MEDS: IPRATROPIUM-ALBUTEROL 3 ML NEB IH SCH ×3 (08:44→16:22)
[2017-04-05 11:19] VITALS: BP 108/59; RESP 18
--- NOTE | 2017-04-05 15:29 | P.PN ---
Subjective Progress Note Date: 04/05/17 Principal diagnosis: Squamous cell carcinoma of the lung, status post to left upper lobe nodule resection, severe COPD emphysema, chronic hypoxic respiratory failure history of left-sided pneumothorax 04/05/2017, patient seen and evaluated examined during the rounds the chest pain on the left side has improved patient had the substernal chest heaviness which is resolving improved as well he's breathing more adequately denies any cough or sputum production This is a 67-year-old male patient being seen examined and evaluated today. This patient is well-known to our services. The patient had a computed tomography scan on 8:15 and was found to have a suspicious nodule of his left upper lobe. He then had a PET scan which did show suspicious uptake of the nodule. He was admitted to [facility] for pneumonia and at that time he did go a FNA of left neck nodules. Came back nondiagnostic. A CT- guided biopsy of the left lung nodule was then attempted and lead to a pneumothorax. Patient did have a chest tube inserted at that time and was transferred over to [facility]. During that stay the cardiothoracic surgeon was consult it and the patient had a chest tube placement with a ventral resolution of the pneumothorax. He also had oral apical wedge biopsy of the left lung nodule on 03/10/2017 the came back positive for squamous cell lung cancer. Of note the patient is noted to have chronic hypoxia, COPD GERD hypertension hyperlipidemia. He came into the emergency room from [facility] where he was at for rehab, with chest pressure in the lowers sternum with no radiation. The patient was short of breath at that time as well the patient did have nitroglycerin with minimal relief. Chest x-ray was reviewed and shows abnormal bilateral pulmonary interstitial pattern. Patient also underwent a CTA of the chest which showed negative for pulmonary embolism, spiculated left upper lobe appears edema noted. His EKG did show atrial fibrillation with controlled ventricular response. Upon examination the patient's resting up in bed on his of supplemental oxygen via nasal cannula. Patient states he no longer has any chest discomfort however does have some left-sided discomfort that is dull which is the area where his chest tube was previously placed. Patient states he has had this dull ache since the chest tube placement however has decreased in severity. Currently he is hemodynamically stable. All labs and reports have been reviewed. Of note the patient did have troponins trends of 0.023, 0.047, 0.047. Objective - Vital Signs Vital signs: Vital Signs Temp 97.8 F 04/05/17 11:19 Pulse 80 04/05/17 11:53 Resp 18 04/05/17 11:19 BP 108/59 04/05/17 11:19 Pulse Ox 97 04/05/17 11:19 Intake & Output 04/04/17 04/05/17 04/05/17 18:59 06:59 18:59 Intake Total 498.978 121.045 954.825 Output Total 1175 600 850 Balance -676.022 -478.955 104.825 Weight 72.4 kg Intake: Intake, IV Titration 258.978 121.045 354.825 Amount Heparin Sodium,Porcine/ 258.978 121.045 354.825 D5w Pmx 25,000 unit In Dextrose/Water 1 500ml. bag @ 12 UNITS/KG/HR 16. 65 mls/hr IV .Q24H RADHA Rx #:[id number] Oral 240 600 Output: Urine 1175 600 850 Other: # Voids 1 1 1 - Exam GENERAL EXAM: Alert, active, comfortable in no apparent distress. HEAD: Normocephalic. EYES: Normal reaction of pupils, equal size. NOSE: Clear with pink turbinates. THROAT: No erythema or exudates. NECK: No masses, no JVD. CHEST: No chest wall deformity. LUNGS: Lungs noted to be coarse with some faint bilateral crackles. Bases diminished CVS: S1 and S2 normal with no audible mumurs, irregular rhythm. ABDOMEN: No hepatosplenomegaly, normal bowel sounds, no guarding or rigidity. EXTREMITIES: No edema noted, pedal pulses palpable. SKIN: No rashes CENTRAL NERVOUS SYSTEM: No focal deficits, tone is normal in all 4 extremities. - Labs CBC & Chem 7: 04/05/17 06:08 04/03/17 17:45 Labs: Abnormal Lab Results - Last 24 Hours (Table) 04/04/17 04/05/17 Range/Units 17:37 00:23 APTT 35.6 H 53.8 H (22.0-30.0) sec Assessment and Plan Assessment: Assessment Atypical substernal chest pain, cardiology following this patient Acute on chronic hypoxic respiratory failure and underlying severe COPD Recent bilateral pneumonia with left-sided pneumothorax, history of left upper lung mass which revealed squamous cell carcinoma requiring a wedge resection, patient will likely require a PET scan outpatient setting for follow-up, currently patient is a resident of [facility] no further extensive workup couldn't be performed until he is rehabilitated Atrial fibrillation with a controlled ventricular response, patient refuses anticoagulation due to his history of GI bleed History of COPD Hypertension Hyperlipidemia History of CVA Plan Medications have been reviewed and will be continued as ordered. Patient has received 1 time dose of Lasix yesterday and started on oral Lasix per cardiology. Patient status post echocardiogram , from pulmonary standpoint we' ll monitor observe remains stable condition discharge will follow-up in outpatient setting. Meds have been adjusted by cardiology. Patient states he wants no further workup in regards to any invasive pulmonary procedures. Continue with pulmonary hygiene, coughing and deep breathing exercises, and supportive care. Supplemental oxygen to maintain oxygen saturations of 92% or better. Continue nebulizer treatments. GI and DVT prophylaxis. We will continue to monitor labs/results and adjust treatment as necessary. Further recommendations pending. Time with Patient: Greater than 30
--- NOTE | 2017-04-05 16:24 | P.PN ---
Subjective Progress Note Date: 04/05/17 Principal diagnosis: Atypical chest discomfort This is a 67-year-old gentleman with history of hypertension, hyperlipidemia, chronic persistent atrial fibrillation, prior CVA, COPD, patient was recently discharged from the hospital, he was admitted at that time with a left-sided pneumothorax and bilateral pneumonia. Patient was also noted on that admission to have a left upper lobe nodule with CT-guided biopsy. He is found to have squamous cell lung cancer and oncology was following. He was at [facility] for rehab, Patient states he developed a pressure sensation in the center of his chest, patient states his breathing worsened, he denies any diaphoresis or nausea. Patient also complains of pain in his left side where the prior chest tube was in place. Chest x-ray was performed which revealed abnormal bilateral pulmonary interstitial pattern. CTA of the chest was performed which was negative for pulmonary embolism, spiculated left upper lobe opacity noted. EKG shows atrial fibrillation with a controlled ventricular response. Upon review of the patient's home medications, it does not appear he is on anticoagulation for his atrial fibrillation. Blood pressure 135/60, heart rate in the 80s, respirations 18. Hemoglobin 11, white blood cell count 6.1, platelet count 266. Sodium 137, potassium 5.0, BUN 23, creatinine 1.1. Magnesium level I.6, troponin 0.0-3, 0.047, 0.047. BNP level 4670. At the time of my examination this morning, he denies any further chest discomfort, complains of some left-sided discomfort in the area of his prior chest tube. 04/05/2017 Patient underwent a dobutamine echocardiographic study yesterday. Revealed normal EKG response to dobutamine with no incident reversible ischemia. He was seen and examined today, denied any chest pain, breathing overall is stable. Objective - Vital Signs Vital signs: Vital Signs Temp 97.8 F 04/05/17 11:19 Pulse 80 04/05/17 11:53 Resp 18 04/05/17 11:19 BP 108/59 04/05/17 11:19 Pulse Ox 97 04/05/17 11:19 Intake & Output 04/04/17 04/05/17 04/05/17 18:59 06:59 18:59 Intake Total 498.978 121.045 954.825 Output Total 1175 600 850 Balance -676.022 -478.955 104.825 Weight 72.4 kg Intake: Intake, IV Titration 258.978 121.045 354.825 Amount Heparin Sodium,Porcine/ 258.978 121.045 354.825 D5w Pmx 25,000 unit In Dextrose/Water 1 500ml. bag @ 12 UNITS/KG/HR 16. 65 mls/hr IV .Q24H RADHA Rx #:[id number] Oral 240 600 Output: Urine 1175 600 850 Other: # Voids 1 1 1 - Exam PHYSICAL EXAMINATION: HEENT: Head is atraumatic, normocephalic. Pupils equal, round. Neck is supple. There is elevated jugular venous pressure. HEART EXAMINATION: Heart S1 and S2 irregularly irregular a systolic murmur is heard CHEST EXAMINATION: Lungs reveal crackles bilaterally with diminished air entry to the bases. ABDOMEN: Soft, nontender. Bowel sounds are heard. No organomegaly noted. Positive tenderness at the left flank area EXTREMITIES: 1+ peripheral pulses with no evidence of peripheral edema and no calf tenderness noted. NEUROLOGIC [patient is awake, alert and oriented -3.] - Labs CBC & Chem 7: 04/05/17 06:08 04/03/17 17:45 Labs: Abnormal Lab Results - Last 24 Hours (Table) 04/04/17 04/05/17 Range/Units 17:37 00:23 APTT 35.6 H 53.8 H (22.0-30.0) sec Assessment and Plan Plan: Assessment and plan #1 Symptoms of chest discomfort, atypical in nature. EKG shows atrial fibrillation with a controlled ventricular response. Troponins 0.0-3, 0.047, 0.047. #2 recent hospital admission with bilateral pneumonia, pneumothorax. Upper lung mass which revealed squamous cell carcinoma. #3 COPD #4 prior myocardial infarction at the age of 38, no cardiac catheterization performed at that time according to the patient #5 hypertension #6 hyperlipidemia #7 prior CVA #8 chronic persistent atrial fibrillation, not on anticoagulation #9 congestive cardiac failure LV function unknown. Plan Dobutamine echocardiographic study was negative for any reversible ischemia. Patient also had an echocardiogram with Doppler study performed which revealed an ejection fraction of 50-55%. He is chronic persistent atrial fibrillation, not on anticoagulation because of apparent hemoptysis on his last admission. We will leave the resuming of anticoagulation up to Dr. smart who discontinued his anticoagulation on this most recent admission. Patient apparently has not had any evidence of hemoptysis in 2 weeks according to him. He may be able to be discharged once cleared by the primary and we'll follow-up with him in the office. DNP note has been reviewed, I agree with a documented findings and plan of care. Patient was seen and examined.
[2017-04-05 16:25] VITALS: PULSE 84
--- NOTE | 2017-04-05 16:47 | P.DS ---
Providers Date of admission: 04/05/17 09:03 Expected date of discharge: 04/05/17 Attending physician: Alex Cassidy Consults: 04/03/17 18:33 Consult Physician Urgent Consulting Provider: Nba Cotton Consult Reason/Comments: cp Do you want consulting provider notified?: Yes 04/03/17 22:11 Consult Physician Routine Consulting Provider: Rico Nazario Consult Reason/Comments: abnormal CT chest Do you want consulting provider notified?: Yes Primary care physician: [facility] Course: FINAL DIAGNOSES: -Anterior chest wall chest pain in a patient who has multiple cardiac risk factors with questionable history of myocardial infarction in the past likely cardiac in nature-stress test negative -Left upper lung mass with recent wedge resection showing squamous cell carcinoma. -Chronic hypoxic respiratory failure with underlying chronic obstructive pulmonary disease. -Chronic obstructive pulmonate disease in ex-smoker. -Persistent atrial flutter fibrillation rate controlled on no anticoagulation, patient refuses. -Chronic dysarthria from prior stroke. -Gastroesophageal reflux disease. -Essential hypertension. -Hyperlipidemia. -Seizure disorder. HOSPTIAL COURSE: 67-year-old male status post resection of upper lobe mass showed squamous cell carcinoma. Has a history of atrial fibrillation, rate controlled, with no anticoagulation, patient has refused it. Admitted for chest pain. Home medications reordered, Cardiology and pulmonology consulted. Echocardiogram completed, received a single dose of IV Lasix and converted to oral for subsequent doses. Stress test performed and was negative. Atrial fibrillation continued rate controlled, patient was not on anticoagulation at home, he refused it. Tolerating his diet, up with assistance, patient is a resident at [facility] care facility and is stable for discharge back to that facility. PHYSICAL EXAM: CARDIOVASCULAR: Irregular rhythm, mild edema RESPIRATORY: Respiratory effort normal, lung sounds diminished bilaterally. PSYCHIATRY: Alert and oriented 3, mood and affect normal. Patient was seen and examined by nurse practitioner Alessandra Mayer in all elements of the case discussed with attending Dr. Cassidy DISPOSITION: Return to [facility] care facility. Patient Condition at Discharge: Stable Plan - Discharge Summary New Discharge Prescriptions: New Aspirin 81 mg PO DAILY chew Atorvastatin [Lipitor] 40 mg PO HS #30 tab Nitroglycerin Sl Tabs [Nitrostat] 0.4 mg SUBLINGUAL Q5M PRN #20 tab PRN Reason: Chest Pain Isosorbide Mononitrate ER [Imdur] 30 mg PO DAILY #1 tab Continue carBAMazepine [carBAMazepine XR] 400 mg PO BID Divalproex [Depakote] 1,000 mg PO BID@0800,1700 Budesonide-Formot 160-4.5 Mcg [Symbicort 160-4.5 Mcg Inhaler] 2 puff INHALATION RT-BID Ipratropium-Albuterol Nebulize [Duoneb 0.5 mg-3 mg/3 ml Soln] 3 ml IH RT-QID neb Metoprolol Succinate (ER) [Toprol XL] 25 mg PO DAILY tab PARoxetine [Paxil] 10 mg PO DAILY tab Magnesium Hydroxide [Milk of Magnesia] 2,400 mg PO DAILY PRN PRN Reason: Constipation Na Phos,M-B/Na Phos,Di-Ba [Fleet Adult] 133 ml RECTAL ONCE PRN PRN Reason: Constipation Calcium Carbonate [Tums] 500 mg PO Q8H PRN PRN Reason: UPSET STOMACH Bisacodyl [Dulcolax] 10 mg RECTAL DAILY PRN PRN Reason: Constipation Gabapentin [Neurontin] 100 mg PO TID Tamsulosin [Flomax] 0.4 mg PO QAM HYDROcodone/APAP 7.5-325MG [[place] 7.5-325] 1 tab PO Q4H PRN #30 tab PRN Reason: Pain Discontinued INSULIN LISPRO (HumaLOG) [HumaLOG] See Protocol SQ ACHS predniSONE See Taper PO DAILY Discharge Medication List Budesonide-Formot 160-4.5 Mcg [Symbicort 160-4.5 Mcg Inhaler] 2 puff INHALATION RT-BID 05/22/14 [History] Divalproex [Depakote] 1,000 mg PO BID@0800,1700 05/22/14 [History] carBAMazepine [carBAMazepine XR] 400 mg PO BID 05/22/14 [History] Ipratropium-Albuterol Nebulize [Duoneb 0.5 mg-3 mg/3 ml Soln] 3 ml IH RT-QID neb 03/22/17 [Rx] Metoprolol Succinate (ER) [Toprol XL] 25 mg PO DAILY tab 03/22/17 [Rx] PARoxetine [Paxil] 10 mg PO DAILY tab 03/22/17 [Rx] Bisacodyl [Dulcolax] 10 mg RECTAL DAILY PRN 04/03/17 [History] Calcium Carbonate [Tums] 500 mg PO Q8H PRN 04/03/17 [History] Gabapentin [Neurontin] 100 mg PO TID 04/03/17 [History] Magnesium Hydroxide [Milk of Magnesia] 2,400 mg PO DAILY PRN 04/03/17 [History] Na Phos,M-B/Na Phos,Di-Ba [Fleet Adult] 133 ml RECTAL ONCE PRN 04/03/17 [History ] Tamsulosin [Flomax] 0.4 mg PO QAM 04/03/17 [History] Aspirin 81 mg PO DAILY chew 04/05/17 [Rx] Atorvastatin [Lipitor] 40 mg PO HS #30 tab 04/05/17 [Rx] HYDROcodone/APAP 7.5-325MG [[place] 7.5-325] 1 tab PO Q4H PRN #30 tab 04/05/17 [Rx ] Isosorbide Mononitrate ER [Imdur] 30 mg PO DAILY #1 tab 04/05/17 [Rx] Nitroglycerin Sl Tabs [Nitrostat] 0.4 mg SUBLINGUAL Q5M PRN #20 tab 04/05/17 [Rx ] Follow up Appointment(s)/Referral(s): Edd Collins DO [Primary Care Provider] - 04/06/17 Nba Cotton MD [STAFF PHYSICIAN] - 1 Week Ambulatory/Diagnostic Orders: Basic Metabolic Panel [LAB.AMB] Location: Determined By Patient Patient Instructions/Handouts: Heart Healthy Diet (DC)
--- NOTE | 2017-04-05 19:55 | DS ---
DISCHARGE SUMMARY DATE OF DISCHARGE: April 05, 2017. The patient is feeling well. Comfortable. Patient not on anticoagulation. Has a history of bleeding in the past and this was discontinued on the last admission. PHYSICAL EXAM: Lungs decreased breath sounds. CARDIOVASCULAR: Heart sounds irregular. Heart rate is controlled. ASSESSMENT: 1. Anterior chest wall pain. Possible angina with multiple cardiac risk factors. Negative stress test. 2. Left upper lung mass recent wedge resection. 3. Squamous cell carcinoma. 4. Possible acute congestive heart failure exacerbation from diastolic dysfunction. Ejection fraction 50-55%. 5. Persistent atrial flutter fibrillation. Rate controlled. Not a candidate for anticoagulation because of bleeding in the past. DISPOSITION: ECF. Additionally the patient does not want any more invasive procedures regarding his lung. Dr. Rico Nazario is following the patient for the same reason. MMODL / IJN: [id number] /
--- NOTE | 2017-04-14 15:14 | P.PN ---
Progress Note - Text Progress Note Date: 04/14/17 This is an addendum to the cardiology note dictated, patient was discharged to [facility] not on anticoagulation. It had been discontinued on the admission prior to this by his admitting physician. This was apparently discontinued because of hemoptysis which was verified with the patient and family. Patient is willing to be on anticoagulation, Eliquis was initiated at [facility] on discharge. 2-1/2 mg one tablet by mouth twice a day. DNP note has been reviewed, I agree with a documented findings and plan of care. Patient was seen and examined.
== END 2017-04-05 17:08 | DRG 311 ==
LOC: EC 17:25 → 3OBS 18:33 → 6SEL 04-04 04:07 → OBSVTOIN 04-05 09:03
PROVIDERS: ADMIT Hospitalist; ATTEND Hospitalist
DX: I20.9 Angina pectoris, unspecified (principal); J96.21 Acute and chronic respiratory failure with hypoxia; I50.33 Acute on chronic diastolic (congestive) heart failure; C34.90 Malignant neoplasm of unspecified part of unspecified bronchus or lung; I48.1 Persistent atrial fibrillation; I48.2 Chronic atrial fibrillation; J44.9 Chronic obstructive pulmonary disease, unspecified; I69.922 Dysarthria following unspecified cerebrovascular disease; I11.0 Hypertensive heart disease with heart failure; E78.5 Hyperlipidemia, unspecified; G40.909 Epilepsy, unspecified, not intractable, without status epilepticus; I25.2 Old myocardial infarction; K21.9 Gastro-esophageal reflux disease without esophagitis; G89.29 Other chronic pain; M54.5 Low back pain; Z79.899 Other long term (current) drug therapy; Z79.4 Long term (current) use of insulin; Z87.891 Personal history of nicotine dependence; Z85.038 Personal history of other malignant neoplasm of large intestine; Z88.7 Allergy status to serum and vaccine
CPT/HCPCS: 36415; 71020; 71275; 80053; 80061; 82550; 82553; 83690; 83735; 83880; 84484; 85025; 85049; 85610; 85730; 93005; 93017; 93306; 93350; 94640; 94760; 96374; 96376; 99291

== ENCOUNTER → 2017-05-19 | Outpatient (CLI) | payer MEDICARE, OTHER ==
--- NOTE | 2017-05-19 14:55 | XR ---
Left RIBS HISTORY: Left lateral rib pain status post lung biopsy 4 views of the left ribs correlated to chest CT 04/03/2017, chest x-ray 04/03/2017 No displaced rib fracture is evident. Bone mineralization is maintained. Underlying interstitial lung disease noted incidentally. Lower ribs are not as well seen possibly due to technique. There is an u nderlying scoliosis. Degenerative disc changes in the visualized spine. No pneumothorax or pleural ef fusion. IMPRESSION: There are some limitations as described. Bone scan may be of increased sensitivity. No ab normality evident to account for patient's symptoms.
== END | disposition home or self-care (01) ==
LOC: RADXRMAIN 13:48
PROVIDERS: ATTEND Internal Medicine Hematology & Oncology
DX: C34.12 Malignant neoplasm of upper lobe, left bronchus or lung (principal); C18.9 Malignant neoplasm of colon, unspecified; R91.1 Solitary pulmonary nodule; R56.9 Unspecified convulsions

== ENCOUNTER → 2017-09-27 | Outpatient (CLI) | payer MEDICARE, OTHER ==
[2017-09-27 10:34] LABS: Anisocytosis Moderate; HCT 34.3 % (39.0-53.0); Hypochromasia Moderate; MCH 33.9 pg (25.0-35.0); MCHC 32.2 g/dL (31.0-37.0); MCV 105.3 fL (80.0-100.0); Macrocytosis Marked; Mean Platelet Volume 8.3; Platelet Count 220 k/uL (150-450); Poikilocytosis Moderate; RBC 3.26 m/uL (4.30-5.90); RDW 20.4 % (11.5-15.5); WBC 5.3 k/uL (3.8-10.6)
[2017-09-27 11:28] LABS: Band Neutrophils % 2 %; Eosinophils # (M) 0.05 k/uL (0-0.7); Lymphocytes # (M) 1.33 k/uL (1.0-4.8); Metamyelocytes # (M) 0.11 k/uL (0); Metamyelocytes % 2 %; Monocytes # (M) 0.48 k/uL (0-1.0); Myelocytes # (M) 0.11 k/uL (0); Myelocytes % 2 %; Neutrophils % (M) 61 %; Nucleated Red Blood Cells 0 /100 WBC (0-0); Total Cells Counted 200; Toxic Granulation Present
[2017-09-27 11:59] LABS: Carbamazepine (Tegretol) 8.3 ug/mL
[2017-09-27 12:01] LABS: Valproic Acid (Depakene) 82.8 ug/mL
== END | disposition home or self-care (01) ==
LOC: LABWHC1 09:24
PROVIDERS: ATTEND Psychiatry & Neurology Neurology
DX: G40.209 Localization-related (focal) (partial) symptomatic epilepsy and epileptic syndromes with complex partial seizures, not intractable, without status epilepticus (principal)
CPT/HCPCS: 36415; 80156; 80164; 84450; 84460; 85025

== ENCOUNTER 2018-01-23 20:58 | Emergency (ER) | payer MEDICARE, OTHER ==
--- NOTE | 2018-01-23 23:07 | ED ---
Lower Extremity Injury HPI - General Source: patient, RN notes reviewed Mode of arrival: EMS Limitations: no limitations <Heydi Edge - Last Filed: 01/24/18 00:50> <Jeffrey Schroeder - Last Filed: 01/24/18 02:39> - General Chief Complaint: Extremity Injury, Lower Stated Complaint: LEG PAIN Time Seen by Provider: 01/23/18 22:33 - History of Present Illness Initial Comments: This is a 67-year-old male who presents to the emergency department with chief complaint of bilateral leg pain and numbness. Patient has many comorbidities including history of colon and lung cancer, COPD history of strokes and heart attacks. Patient states that he has been doing a colon prep for a colonoscopy he has scheduled at 8 AM tomorrow morning. He states that while getting up to the bathroom his legs became weak. He states that they feel numb. He complains of pain from his right hip down to his right foot and from his left knee down to his left foot. Patient states that he does have a history of 4 vertebral fractures. He states that he has had intermittent pain of his right hip for the past one week. Patient is short of breath and he states that this is normal for him. He denies any chest pain. Denies abdominal pain, nausea or vomiting. (Heydi Edge) - Related Data Home Medications Medication Instructions Recorded Confirmed Budesonide-Formot 160-4.5 Mcg 2 puff INHALATION RT-BID 05/22/14 01/23/18 [Symbicort 160-4.5 Mcg Inhaler] Divalproex [Depakote] 1,000 mg PO BID@0800,1700 05/22/14 01/23/18 carBAMazepine [carBAMazepine XR] 400 mg PO BID 05/22/14 01/23/18 Bisacodyl [Dulcolax] 10 mg RECTAL DAILY PRN 04/03/17 01/23/18 Calcium Carbonate [Tums] 500 mg PO Q8H PRN 04/03/17 01/23/18 Gabapentin [Neurontin] 100 mg PO TID 04/03/17 01/23/18 Magnesium Hydroxide [Milk of 2,400 mg PO DAILY PRN 04/03/17 01/23/18 Magnesia] Tamsulosin [Flomax] 0.4 mg PO QAM 04/03/17 01/23/18 Previous Rx's Medication Instructions Recorded Ipratropium-Albuterol Nebulize 3 ml IH RT-QID neb 03/22/17 [Duoneb 0.5 mg-3 mg/3 ml Soln] Metoprolol Succinate (ER) [Toprol 25 mg PO DAILY tab 03/22/17 XL] PARoxetine [Paxil] 10 mg PO DAILY tab 03/22/17 Aspirin 81 mg PO DAILY chew 04/05/17 Atorvastatin [Lipitor] 40 mg PO HS #30 tab 04/05/17 HYDROcodone/APAP 7.5-325MG [[place] 1 tab PO Q4H PRN #30 tab 04/05/17 7.5-325] Isosorbide Mononitrate ER [Imdur] 30 mg PO DAILY #1 tab 04/05/17 Nitroglycerin Sl Tabs [Nitrostat] 0.4 mg SUBLINGUAL Q5M PRN #20 tab 04/05/17 Allergies Allergy/AdvReac Type Severity Reaction Status Date / Time Influenza Virus Vaccines Allergy Unknown Verified 01/23/18 21:32 Review of Systems ROS Other: All systems not noted in ROS Statement are negative. <Heydi Edge - Last Filed: 01/24/18 00:50> ROS Other: All systems not noted in ROS Statement are negative. <Jeffrey Schroeder - Last Filed: 01/24/18 02:39> ROS Statement: Those systems with pertinent positive or pertinent negative responses have been documented in the HPI. Past Medical History Past Medical History: Atrial Fibrillation, Cancer, Chest Pain / Angina, COPD, CVA/TIA, GERD/Reflux, GI Bleed, Hyperlipidemia, Hypertension, Myocardial Infarction ([place]), Musculoskeletal Disorder, Renal Disease, Seizure Disorder Additional Past Medical History / Comment(s): colonoscopy then laparoscopic sigmoid colectomy for adenocarcinoma was performed on 07/19/14. Other HX: colon cancer found during colonoscopy-polyp which was adenocarcinoma, SQUAMOUS CELL CARCINOMA LT UPPER LOBE. ULCER; EPILEPTIC - STATES LAST SEIZURE PREV TO 1994; CVA - AFFECTS SPEECH/able to print but not write in cursive. UNABLE TO COMPLETELY CLOSE LEFT HAND R/T hx of LARGE LACERATION. HX OF RT HIP DISORDER, WORE CAST, THEN BRACE FOR 2 YRS, chronic low back pain, renal cysts and kidney stones, GI bleed associated with anticoaulation. Has home O2 which he uses when necessary Last Myocardial Infarction Date:: patient reports 19 years ago History of Any Multi-Drug Resistant Organisms: None Reported Past Surgical History: Orthopedic Surgery Additional Past Surgical History / Comment(s): 07/19/14 Laparoscopic sigmoid colectomy. LEFT HAND SX, EXC VILMA CATARACTS; COLONOSCOPY 05/26/14.BRONCH/BX- PNUEMOTHORAX/CHEST TUBE /WEDGE RESECTION TUMOR LT UPPER LOBE. Past Anesthesia/Blood Transfusion Reactions: No Reported Reaction Past Psychological History: No Psychological Hx Reported Smoking Status: Former smoker Past Alcohol Use History: None Reported Past Drug Use History: None Reported - Past Family History Father Family Medical History: CVA/TIA Mother Family Medical History: Cancer <Heydi Edge - Last Filed: 01/24/18 00:50> General Exam Limitations: no limitations <Heydi Edge - Last Filed: 01/24/18 00:50> <Jeffrey Schroeder - Last Filed: 01/24/18 02:39> - General Exam Comments Initial Comments: General: Awake and alert, well-developed; in no apparent distress. HEENT: Head atraumatic, normocephalic. Pupils are equal, round and reactive to light. Extraocular movements intact. Oropharynx moist without erythema or exudate. Neck: Supple. Normal ROM. Cardiovascular: Regular rate and rhythm. No murmurs, rubs or gallops. Chest symmetrical. Respiratory: Labored breathing. Lungs are clear to auscultation bilaterally. No wheezes, rales or rhonchi. Abdomen: Soft, non-tender, non-distended. No rigidity, rebound or guarding. Normal bowel sounds in all 4 quadrants. Musculoskeletal: Normal range of motion of bilateral lower extremities. Patient complains of tenderness on palpation of the entire right lower extremity. No swelling, erythema, warmth, contusions noted bilaterally. Sensation is intact. Pedal pulses are 2+ equal and palpable bilaterally. Ambulating with a cane. Tenderness on palpation of right lumbar paraspinal muscles. No bony point tenderness. Skin: [place], warm and dry without rashes or lesions. Neurological: Alert and oriented x3. CN II-XII grossly intact. Speech is fluent and answers are appropriate. No focal neuro deficits. Psychiatric: Normal mood and affect. No overt signs of depression or anxiety noted. (Heydi Edge) Course <Heydi Edge - Last Filed: 01/24/18 00:50> <Jeffrey Schroeder - Last Filed: 01/24/18 02:39> Vital Signs 01/23/18 01/24/18 01/24/18 21:30 00:56 02:30 Temperature 98.3 F 97.3 F L Pulse Rate 110 H 110 H 101 H Respiratory 20 18 Rate Blood Pressure 108/75 116/61 O2 Sat by Pulse 98 100 Oximetry - Reevaluation(s) Reevaluation #1: 01/24/18 00:50 At this time, patient will be signed out to Dr. Schroeder. (Heydi Edge) Medical Decision Making - Lab Data Result diagrams: 01/23/18 23:28 01/23/18 23:28 <Heydi Edge - Last Filed: 01/24/18 00:50> - Lab Data Result diagrams: 01/23/18 23:28 01/23/18 23:28 <Jeffrey Schroeder - Last Filed: 01/24/18 02:39> - Medical Decision Making This is a 67-year-old male who presents to the emergency department with chief complaint of bilateral leg pain and numbness. Patient reports intermittent right hip pain for the past one week. He states that tonight he developed diffuse to pain and numbness down the entire right leg as well as the left leg below the knee. Case was discussed with attending physician, Dr. Schroeder who also evaluated the patient. Recommended workup for deep venous thrombosis and pulmonary embolism. (Heydi Edge) Patient is sent out to me by physician nurse assistant. Briefly, patient is a 67-year -old male presents with right lower extremity pain. Patient also has associated shortness of breath. He is worked up for the venous term versus versus thromboembolic disease. CT angios negative. DVT studies of the right lower extremity is negative. Patient is ambulatory without complications. Labs are unremarkable. Patient has baseline macrocytic anemia. Patient appears comfortable and is not in any acute distress. CTA negative for PE however does show severe chronic changes. Patient's symptoms of shortness of breath is likely related to COPD. He is given IV steroids and breathing treatment. Patient also given some Toradol for right lower extremity pain. No clinical suspicion of ischemic changes to the right lower extremity given that pulses are symmetrical and equal and there are no mottling or temperature differences or any other asymmetries between right and left leg. Patient be discharged. He has a follow-up planned with his primary care physician. Patient scheduled for colonoscopy tomorrow. Patient reports having all his medications were COPD at home. Patient's heart rate is mildly elevated. Patient has history of A. fib. Patient is rate control and takes metoprolol. Hemodynamically stable. Patient given the option to be observed in emergency department for COPD however reports that he rather preferred to be discharge and manages COPD outpatient. (Jeffrey Schroeder) - Lab Data Lab Results 01/23/18 01/23/18 01/23/18 Range/Units 23:28 23:28 23:28 WBC 5.7 (3.8-10.6) k/uL RBC 2.63 L (4.30-5.90) m/uL Hgb 9.1 L (13.0-17.5) gm/dL Hct 28.0 L (39.0-53.0) % MCV 106.4 H (80.0-100.0) fL MCH 34.6 (25.0-35.0) pg MCHC 32.5 (31.0-37.0) g/dL RDW 22.5 H (11.5-15.5) % Plt Count 177 (150-450) k/uL Neutrophils % 71 % Lymphocytes % 15 % Monocytes % 8 % Eosinophils % 2 % Basophils % 0 % Neutrophils # 4.1 (1.3-7.7) k/uL Lymphocytes # 0.8 L (1.0-4.8) k/uL Monocytes # 0.5 (0-1.0) k/uL Eosinophils # 0.1 (0-0.7) k/uL Basophils # 0.0 (0-0.2) k/uL Hypochromasia Slight Poikilocytosis Slight Anisocytosis Moderate Macrocytosis Marked PT 11.1 (9.0-12.0) sec INR 1.2 H (<1.2) APTT 23.4 (22.0-30.0) sec Sodium 138 (137-145) mmol/L Potassium 3.9 (3.5-5.1) mmol/L Chloride 105 (98-107) mmol/L Carbon Dioxide 20 L (22-30) mmol/L Anion Gap 13 mmol/L BUN 22 H (9-20) mg/dL Creatinine 1.00 (0.66-1.25) mg/dL Est GFR (CKD-EPI)AfAm 88 (>60 ml/min/1.73 sqM) Est GFR (CKD-EPI)NonAf 77 (>60 ml/min/1.73 sqM) Glucose 83 (74-99) mg/dL Calcium 9.3 (8.4-10.2) mg/dL Total Bilirubin 0.7 (0.2-1.3) mg/dL AST 21 (17-59) U/L ALT 19 L (21-72) U/L Alkaline Phosphatase 50 (38-126) U/L Total Protein 6.8 (6.3-8.2) g/dL Albumin 4.2 (3.5-5.0) g/dL Urine Color Urine Appearance (Clear) Urine pH (5.0-8.0) Ur Specific [place] (1.001-1.035) Urine Protein (Negative) Urine Glucose (UA) (Negative) Urine Ketones (Negative) Urine Blood (Negative) Urine Nitrite (Negative) Urine Bilirubin (Negative) Urine Urobilinogen (<2.0) mg/dL Ur Leukocyte Esterase (Negative) 01/24/18 Range/Units 01:48 WBC (3.8-10.6) k/uL RBC (4.30-5.90) m/uL Hgb (13.0-17.5) gm/dL Hct (39.0-53.0) % MCV (80.0-100.0) fL MCH (25.0-35.0) pg MCHC (31.0-37.0) g/dL RDW (11.5-15.5) % Plt Count (150-450) k/uL Neutrophils % % Lymphocytes % % Monocytes % % Eosinophils % % Basophils % % Neutrophils # (1.3-7.7) k/uL Lymphocytes # (1.0-4.8) k/uL Monocytes # (0-1.0) k/uL Eosinophils # (0-0.7) k/uL Basophils # (0-0.2) k/uL Hypochromasia Poikilocytosis Anisocytosis Macrocytosis PT (9.0-12.0) sec INR (<1.2) APTT (22.0-30.0) sec Sodium (137-145) mmol/L Potassium (3.5-5.1) mmol/L Chloride (98-107) mmol/L Carbon Dioxide (22-30) mmol/L Anion Gap mmol/L BUN (9-20) mg/dL Creatinine (0.66-1.25) mg/dL Est GFR (CKD-EPI)AfAm (>60 ml/min/1.73 sqM) Est GFR (CKD-EPI)NonAf (>60 ml/min/1.73 sqM) Glucose (74-99) mg/dL Calcium (8.4-10.2) mg/dL Total Bilirubin (0.2-1.3) mg/dL AST (17-59) U/L ALT (21-72) U/L Alkaline Phosphatase (38-126) U/L Total Protein (6.3-8.2) g/dL Albumin (3.5-5.0) g/dL Urine Color Light Yellow Urine Appearance Clear (Clear) Urine pH 6.5 (5.0-8.0) Ur Specific [place] 1.050 H (1.001-1.035) Urine Protein Negative (Negative) Urine Glucose (UA) Negative (Negative) Urine Ketones Negative (Negative) Urine Blood Negative (Negative) Urine Nitrite Negative (Negative) Urine Bilirubin Negative (Negative) Urine Urobilinogen <2.0 (<2.0) mg/dL Ur Leukocyte Esterase Negative (Negative) - EKG Data EKG Comments: 23:13:46. Atrial fibrillation with rapid ventricular response. Septal infarct , age undetermined. Ventricular rate 106 bpm, QRS duration 70, QT/QTC 366/486 (Heydi Edge) Disposition <Heydi Edge - Last Filed: 01/24/18 00:50> Is patient prescribed a controlled substance at d/c from ED?: No Time of Disposition: 02:39 <Jeffrey Schroeder - Last Filed: 01/24/18 02:39> Clinical Impression: COPD exacerbation, Leg cramping Disposition: HOME SELF-CARE Condition: Fair Instructions: Muscle Strain (ED) Referrals: Sue Arellano MD [Primary Care Provider] - 1-2 days
[2018-01-23 23:38] LABS: Anisocytosis Moderate; Basophils % (A) 0 %; Eosinophils # (A) 0.1 k/uL (0-0.7); Eosinophils % (A) 2 %; HGB 9.1 gm/dL (13.0-17.5); Hypochromasia Slight; Lymphocytes # (A) 0.8 k/uL (1.0-4.8); Lymphocytes % (A) 15 %; MCH 34.6 pg (25.0-35.0); MCHC 32.5 g/dL (31.0-37.0); MCV 106.4 fL (80.0-100.0); Macrocytosis Marked; Mean Platelet Volume 8.4; Monocytes # (A) 0.5 k/uL (0-1.0); Monocytes % (A) 8 %; Neutrophils # (A) 4.1 k/uL (1.3-7.7); Neutrophils % (A) 71 %; Platelet Count 177 k/uL (150-450); Poikilocytosis Slight; RBC 2.63 m/uL (4.30-5.90); RDW 22.5 % (11.5-15.5); WBC 5.7 k/uL (3.8-10.6)
[2018-01-23 23:48] LABS: INR 1.2 (<1.2); Partial Thromboplastin Time 23.4 sec (22.0-30.0); Prothrombin Time 11.1 sec (9.0-12.0)
[2018-01-23 23:59] LABS: Albumin 4.2 g/dL (3.5-5.0); Calcium 9.3 mg/dL (8.4-10.2); Potassium 3.9 mmol/L (3.5-5.1); Total Bilirubin 0.7 mg/dL (0.2-1.3); Total Protein 6.8 g/dL (6.3-8.2)
--- NOTE | 2018-01-24 00:53 | CT ---
EXAMINATION TYPE: CT angio chest DATE OF EXAM: 01/24/2018 12:34 AM COMPARISON: 04/03/2017 HISTORY: R/O PE, SOB, Pain CT DLP: 703 mGycm Automated exposure control for dose reduction was used. CONTRAST: CTA scan of the thorax is performed with IV Contrast, patient injected with 75 mL of Isovue 370, pulm onary embolism protocol. There are 3-D post processed images.. FINDINGS: There is diffuse pulmonary emphysema. There is bullous disease. There is extensive reticular intersti tial infiltrate throughout the lungs. There is honeycomb pattern in the periphery of the lungs. There is no pericardial effusion. There is no pleural effusion. There are paratracheal and bronchial lymph nodes that measure up to 2.3 x 1.3 cm. Thoracic aorta is atheromatous. There is no evidence of aortic dissection. There is no aortic aneurysm. The ascending aorta measures 3.3 cm. There is also so me pulmonary parenchymal calcification in the left upper lobe. There is mild anterior wedging of L1 a nd L2 vertebra with 20% loss of height. There is similar 15% wedging of T12. There is 10% wedging of T8. I see no filling defects in the pulmonary arteries. IMPRESSION: NO EVIDENCE OF PULMONARY EMBOLISM. EXTENSIVE PULMONARY FIBROTIC CHANGES. PULMONARY EMPHYSEMA. MEDIAST INAL AND BRONCHIAL ADENOPATHY CONSISTENT WITH INFLAMMATORY DISEASE. THERE IS OVERALL NO SIGNIFICANT C HANGE COMPARED TO LAST EXAM.
[2018-01-24 00:57] VITALS: RESP 18
--- NOTE | 2018-01-24 01:51 | US ---
EXAMINATION TYPE: US venous doppler duplex LE RT DATE OF EXAM: 01/24/2018 1:44 AM COMPARISON: NONE CLINICAL HISTORY: Pain. right leg pain SIDE PERFORMED: Right TECHNIQUE: The lower extremity deep venous system is examined utilizing real time linear array sonog osbaldo with graded compression, doppler sonography and color-flow sonography. VESSELS IMAGED: External Iliac Vein (EIV) Common Femoral Vein Deep Femoral Vein Greater Saphenous Vein * Femoral Vein Popliteal Vein Small Saphenous Vein * Proximal Calf Veins (* superficial vessels) Right Leg: Negative for DVT No evidence of DVT right leg. IMPRESSION: Normal exam. No evidence of deep venous thrombosis in the right leg.
[2018-01-24 02:01] LABS: Appearance,Urine Clear (Clear); Bilirubin,Urine Negative (Negative); Blood,Urine Negative (Negative); Color,Urine Light Yellow; Glucose,Urine (UA) Negative (Negative); Ketones,Urine Negative (Negative); Leukocyte Esterase,Urine Negative (Negative); Nitrite,Urine Negative (Negative); PH, Urine 6.5 (5.0-8.0); Protein,Urine Negative (Negative); Urobilinogen,Urine <2.0 mg/dL (<2.0)
[2018-01-24] MEDS ORDERED: IPRATROPIUM 0.5 MG/2.5 ML NEBU INHALATION STA (02:06)
[2018-01-24] MEDS ORDERED: DEXAMETHASONE SOD PHOSPHATE 10 MG/ML 1 ML VIAL IV STA (02:06)
[2018-01-24] MEDS ORDERED: ALBUTEROL NEBULIZED 2.5 MG/3 ML INHALATION STA (02:06)
[2018-01-24] MEDS ORDERED: KETOROLAC 30 MG/ML 1 ML VIAL IVP STA (02:07)
[2018-01-24 03:01] VITALS: BP 106/59; PULSE 108; TEMP 98.4
== END 2018-01-24 03:01 | disposition home or self-care (01) ==
LOC: EC 20:58 → SUPCPDRO 20:58 → EC 01-24 03:01
DX: J44.1 Chronic obstructive pulmonary disease with (acute) exacerbation (principal); R25.2 Cramp and spasm; I48.91 Unspecified atrial fibrillation; I25.2 Old myocardial infarction; G40.909 Epilepsy, unspecified, not intractable, without status epilepticus; Z85.828 Personal history of other malignant neoplasm of skin; Z85.038 Personal history of other malignant neoplasm of large intestine; Z85.118 Personal history of other malignant neoplasm of bronchus and lung; Z86.73 Personal history of transient ischemic attack (TIA), and cerebral infarction without residual deficits; Z87.891 Personal history of nicotine dependence; Z79.51 Long term (current) use of inhaled steroids; Z79.899 Other long term (current) drug therapy; Z88.7 Allergy status to serum and vaccine; D53.9 Nutritional anemia, unspecified
CPT/HCPCS: 36415; 94640; 93005; 80053; 85025; 85610; 85730; 81003; 93971; 71275; 99284; 96374; 96375; J1100; J1885; Q9967

== ENCOUNTER 2018-01-24 07:55 | Day surgery (SDC) | payer MEDICARE, OTHER ==
[2018-01-23 11:55] VITALS: BMI 23.5
--- NOTE | 2018-01-24 07:33 | P.GSHP ---
History of Present Illness H&P Date: 01/24/18 CHIEF COMPLAINT: Colon screen HISTORY OF PRESENT ILLNESS: The patient is a 67-year-old male who presents for colon screen. Lower endoscopy was offered for further evaluation and management. PAST MEDICAL HISTORY: Please see list. PAST SURGICAL HISTORY: Please see list. MEDICATIONS: Please see list. ALLERGIES: Please see list. SOCIAL HISTORY: No illicit drug use FAMILY HISTORY: No reports of Crohn disease or ulcerative colitis. REVIEW OF ORGAN SYSTEMS: CONSTITUTIONAL: No reports of fevers or chills. PHYSICAL EXAM: VITAL SIGNS: Stable GENERAL: Well-developed pleasant in no acute distress. HEENT: No scleral icterus. Extraocular movements grossly intact. Moist buccal mucosa. NECK: Supple without lymphadenopathy. CHEST: Unlabored respirations. Equal bilateral excursions. CARDIOVASCULAR: Regular rate and rhythm. Distal 2+ pulses. ABDOMEN: Soft, nontender, nondistended. MUSCULOSKELETAL: No clubbing, cyanosis, or edema. ASSESSMENT: 1. Colon screen. PLAN: 1. Recommend proceeding with a lower endoscopy Past Medical History Past Medical History: Atrial Fibrillation, Cancer, Chest Pain / Angina, COPD, CVA/TIA, GERD/Reflux, GI Bleed, Hyperlipidemia, Hypertension, Myocardial Infarction ([place]), Musculoskeletal Disorder, Renal Disease, Seizure Disorder Additional Past Medical History / Comment(s): HX: colon cancer; CA/ LT UPPER LOBE; ULCER; EPILEPTIC - STATES LAST SEIZURE PREV TO 1994; CVA - AFFECTS SPEECH /able to print but not write in cursive. UNABLE TO COMPLETELY CLOSE LEFT HAND R/T hx of LARGE LACERATION. HX OF RT HIP DISORDER, chronic low back pain, renal cysts and kidney stones, GI bleed associated with anticoaulation. Has home O2 which he uses when necessary Last Myocardial Infarction Date:: patient reports 19 years ago History of Any Multi-Drug Resistant Organisms: None Reported Past Surgical History: Orthopedic Surgery Additional Past Surgical History / Comment(s): Laparoscopic sigmoid colectomy. LEFT HAND SX, EXC VILMA CATARACTS; COLONOSCOPY;BRONCH/BX- PNUEMOTHORAX/CHEST TUBE /WEDGE RESECTION TUMOR LT UPPER LOBE. Past Anesthesia/Blood Transfusion Reactions: No Reported Reaction Smoking Status: Former smoker - Past Family History Father Family Medical History: CVA/TIA Mother Family Medical History: Cancer Medications and Allergies Home Medications Medication Instructions Recorded Confirmed Type Budesonide-Formot 160-4.5 Mcg 2 puff INHALATION RT-BID 05/22/14 01/23/18 History [Symbicort 160-4.5 Mcg Inhaler] Divalproex [Depakote] 1,000 mg PO BID@0800,1700 05/22/14 01/23/18 History carBAMazepine [carBAMazepine XR] 400 mg PO BID 05/22/14 01/23/18 History Ipratropium-Albuterol Nebulize 3 ml IH RT-QID neb 03/22/17 01/23/18 Rx [Duoneb 0.5 mg-3 mg/3 ml Soln] Metoprolol Succinate (ER) [Toprol 25 mg PO DAILY tab 03/22/17 01/23/18 Rx XL] PARoxetine [Paxil] 10 mg PO DAILY tab 03/22/17 01/23/18 Rx Bisacodyl [Dulcolax] 10 mg RECTAL DAILY PRN 04/03/17 01/23/18 History Calcium Carbonate [Tums] 500 mg PO Q8H PRN 04/03/17 01/23/18 History Gabapentin [Neurontin] 100 mg PO TID 04/03/17 01/23/18 History Magnesium Hydroxide [Milk of 2,400 mg PO DAILY PRN 04/03/17 01/23/18 History Magnesia] Tamsulosin [Flomax] 0.4 mg PO QAM 04/03/17 01/23/18 History Aspirin 81 mg PO DAILY chew 04/05/17 01/23/18 Rx Atorvastatin [Lipitor] 40 mg PO HS #30 tab 04/05/17 01/23/18 Rx HYDROcodone/APAP 7.5-325MG [[place] 1 tab PO Q4H PRN #30 tab 04/05/17 01/23/18 Rx 7.5-325] Isosorbide Mononitrate ER [Imdur] 30 mg PO DAILY #1 tab 04/05/17 01/23/18 Rx Nitroglycerin Sl Tabs [Nitrostat] 0.4 mg SUBLINGUAL Q5M PRN #20 tab 04/05/1701/03 Rx Allergies Allergy/AdvReac Type Severity Reaction Status Date / Time Influenza Virus Vaccines Allergy Unknown Verified 01/23/18 21:32
[~2018-01-24 07:55] MED LIST: LACTATED RINGERS 1,000 ML IV SCH; LIDOCAINE 1% 20 ML VIAL (10MG/ML) FOR IV START INTRADERMA PRN; MIDAZOLAM 2 MG/2 ML VIAL IV PRN
[2018-01-24 09:32] VITALS: RESP 16; TEMP 97.8
[2018-01-24] MEDS ORDERED: LIDOCAINE 1% INJ 10MG/ML (20 ML MDV) ONE (10:03)
[2018-01-24] MEDS ORDERED: PROPOFOL 10 MG/ML 20 ML VIAL IV ONE (10:03)
--- NOTE | 2018-01-24 10:21 | P.PCN ---
Date of Procedure: 01/24/18 Description of Procedure: PREOPERATIVE DIAGNOSIS: History of colon cancer Personal history of high risk colon polyps Previous sigmoid colectomy POSTOPERATIVE DIAGNOSIS: History of colon cancer Personal history of high risk colon polyps Previous sigmoid colectomy Diverticulosis, scattered. OPERATION: Colonoscopy to the ileocecal valve and appendiceal orifice. SURGEON: Francy Abreu MD. ANESTHESIA: MAC. INDICATIONS: The patient is a 67-year-old female who presents for colonoscopy screening. Benefits and risks were described and informed consent was obtained. DESCRIPTION OF PROCEDURE: The patient had undergone Gatorade, MiraLAX and Dulcolax prep. She had been brought into the operating room and laid in the left lateral decubitus position. After adequate intravenous sedation, the rectum was examined with 2% lidocaine jelly. No external hemorrhoids were encountered. The prostate was smooth and without abnormality. The rectal tone was within normal limits. No lesions were palpated in the rectal vault. An Olympus colonoscope was advanced until the ileocecal valve and appendiceal orifice were clearly viewed. The prep was excellent with clear visualization of the mucosal folds. The scope was removed with visualization of each mucosal fold. Scattered diverticulosis was encountered. No colonic polyps were found. No evidence of focal colitis was found. Retroflexion of the scope demonstrated no internal hemorrhoids. The colon was desufflated. The patient had tolerated the procedure well. Withdrawal time was over 6 minutes. FINDINGS: No internal hemorrhoids No external prolapsed hemorrhoids No arteriovenous malformations No adenomatous polyps. No focal colitis Sigmoid diverticulosis Anastomosis within normal limits of sigmoid colon RECOMMENDATIONS: Lower endoscopy in 3 years, 2020 Plan - Discharge Summary New Discharge Prescriptions: No Action carBAMazepine [carBAMazepine XR] 400 mg PO BID Divalproex [Depakote] 1,000 mg PO BID@0800,1700 Budesonide-Formot 160-4.5 Mcg [Symbicort 160-4.5 Mcg Inhaler] 2 puff INHALATION RT-BID Ipratropium-Albuterol Nebulize [Duoneb 0.5 mg-3 mg/3 ml Soln] 3 ml IH RT-QID neb Metoprolol Succinate (ER) [Toprol XL] 25 mg PO DAILY tab PARoxetine [Paxil] 10 mg PO DAILY tab Magnesium Hydroxide [Milk of Magnesia] 2,400 mg PO DAILY PRN PRN Reason: Constipation Calcium Carbonate [Tums] 500 mg PO Q8H PRN PRN Reason: UPSET STOMACH Bisacodyl [Dulcolax] 10 mg RECTAL DAILY PRN PRN Reason: Constipation Gabapentin [Neurontin] 100 mg PO TID Tamsulosin [Flomax] 0.4 mg PO QAM Aspirin 81 mg PO DAILY chew Atorvastatin [Lipitor] 40 mg PO HS #30 tab Nitroglycerin Sl Tabs [Nitrostat] 0.4 mg SUBLINGUAL Q5M PRN #20 tab PRN Reason: Chest Pain HYDROcodone/APAP 7.5-325MG [[place] 7.5-325] 1 tab PO Q4H PRN #30 tab PRN Reason: Pain Isosorbide Mononitrate ER [Imdur] 30 mg PO DAILY #1 tab Discharge Medication List Budesonide-Formot 160-4.5 Mcg [Symbicort 160-4.5 Mcg Inhaler] 2 puff INHALATION RT-BID 05/22/14 [History] Divalproex [Depakote] 1,000 mg PO BID@0800,1700 05/22/14 [History] carBAMazepine [carBAMazepine XR] 400 mg PO BID 05/22/14 [History] Ipratropium-Albuterol Nebulize [Duoneb 0.5 mg-3 mg/3 ml Soln] 3 ml IH RT-QID neb 03/22/17 [Rx] Metoprolol Succinate (ER) [Toprol XL] 25 mg PO DAILY tab 03/22/17 [Rx] PARoxetine [Paxil] 10 mg PO DAILY tab 03/22/17 [Rx] Bisacodyl [Dulcolax] 10 mg RECTAL DAILY PRN 04/03/17 [History] Calcium Carbonate [Tums] 500 mg PO Q8H PRN 04/03/17 [History] Gabapentin [Neurontin] 100 mg PO TID 04/03/17 [History] Magnesium Hydroxide [Milk of Magnesia] 2,400 mg PO DAILY PRN 04/03/17 [History] Tamsulosin [Flomax] 0.4 mg PO QAM 04/03/17 [History] Aspirin 81 mg PO DAILY chew 04/05/17 [Rx] Atorvastatin [Lipitor] 40 mg PO HS #30 tab 04/05/17 [Rx] HYDROcodone/APAP 7.5-325MG [[place] 7.5-325] 1 tab PO Q4H PRN #30 tab 04/05/17 [Rx ] Isosorbide Mononitrate ER [Imdur] 30 mg PO DAILY #1 tab 04/05/17 [Rx] Nitroglycerin Sl Tabs [Nitrostat] 0.4 mg SUBLINGUAL Q5M PRN #20 tab 04/05/17 [Rx ]
[2018-01-24 11:05] VITALS: PULSE 89
[2018-01-24 11:21] VITALS: BP 136/63
== END 2018-01-24 11:29 | disposition home or self-care (01) ==
LOC: ORWHC2ENDO 07:55
PROVIDERS: ATTEND Surgery Plastic and Reconstructive Surgery
DX: Z12.11 Encounter for screening for malignant neoplasm of colon (principal); Z85.038 Personal history of other malignant neoplasm of large intestine; Z86.010 Personal history of colon polyps; Z79.82 Long term (current) use of aspirin
CPT/HCPCS: J2001; J2704; G0105

== ENCOUNTER → 2018-02-01 | Outpatient (CLI) | payer MEDICARE, OTHER ==
--- NOTE | 2018-02-01 14:34 | US ---
EXAMINATION TYPE: US venous doppler duplex LE LT DATE OF EXAM: 02/01/2018 2:16 PM COMPARISON: NONE CLINICAL HISTORY: M79.662 PAIN IN LT CALF. SIDE PERFORMED: Left TECHNIQUE: The lower extremity deep venous system is examined utilizing real time linear array sonog osbaldo with graded compression, doppler sonography and color-flow sonography. VESSELS IMAGED: External Iliac Vein (EIV) Common Femoral Vein Deep Femoral Vein Greater Saphenous Vein * Femoral Vein Popliteal Vein Small Saphenous Vein * Proximal Calf Veins (* superficial vessels) Grayscale, color doppler, spectral doppler imaging performed of the deep veins of the left lower extr emity. There is normal flow, compressibility, vascular waveforms. Left Leg: Negative for DVT IMPRESSION: No sonographic evidence of deep venous thrombosis within the left lower extremity
== END | disposition home or self-care (01) ==
LOC: RADUSWWP 13:47
PROVIDERS: ATTEND Family Medicine
DX: M79.662 Pain in left lower leg (principal)

== ENCOUNTER → 2018-02-15 | Outpatient (CLI) | payer MEDICARE, OTHER ==
[2018-02-15 14:54] LABS: Calcium 9.4 mg/dL (8.4-10.2); Potassium 4.5 mmol/L (3.5-5.1)
== END | disposition home or self-care (01) ==
LOC: LABWHC1 14:13
PROVIDERS: ATTEND Internal Medicine Nephrology
DX: E87.6 Hypokalemia (principal)
CPT/HCPCS: 36415; 80048

== ENCOUNTER 2018-10-20 11:50 | Inpatient (IN) | payer MEDICARE, OTHER ==
[2018-10-20 12:30] LABS: Albumin 3.5 g/dL (3.5-5.0); Calcium 9.2 mg/dL (8.4-10.2); Potassium 4.8 mmol/L (3.5-5.1); Total Protein 6.1 g/dL (6.3-8.2)
--- NOTE | 2018-10-20 12:30 | ED ---
General Adult HPI - General Chief complaint: Fever Stated complaint: Abd.pain Time Seen by Provider: 10/20/18 12:08 Source: patient, EMS, RN notes reviewed, old records reviewed Mode of arrival: EMS Limitations: no limitations - History of Present Illness Initial comments: 68-year-old male presenting for evaluation of fever and dysuria and lower abdominal pain. Patient had recent hospital admission with pneumonia. He was noted to have a fever of 101.2 at the [facility]. He has history of COPD, CHF. He does endorse mild nonproductive cough and dyspnea. His pain in his abdomen read as left lower quadrant. Medicine was at the time my evaluation. A normal bowel movement today. No vomiting. No extremity pain. - Related Data Home Medications Medication Instructions Recorded Confirmed Budesonide-Formot 160-4.5 Mcg 2 puff INHALATION RT-BID 05/22/14 01/24/18 [Symbicort 160-4.5 Mcg Inhaler] Divalproex [Depakote] 1,000 mg PO BID@0800,1700 05/22/14 01/24/18 carBAMazepine [carBAMazepine XR] 400 mg PO BID 05/22/14 01/24/18 Bisacodyl [Dulcolax] 10 mg RECTAL DAILY PRN 04/03/17 01/24/18 Calcium Carbonate [Tums] 500 mg PO Q8H PRN 04/03/17 01/24/18 Gabapentin [Neurontin] 100 mg PO TID 04/03/17 01/24/18 Magnesium Hydroxide [Milk of 2,400 mg PO DAILY PRN 04/03/17 01/24/18 Magnesia] Tamsulosin [Flomax] 0.4 mg PO QAM 04/03/17 01/24/18 Previous Rx's Medication Instructions Recorded Ipratropium-Albuterol Nebulize 3 ml IH RT-QID neb 03/22/17 [Duoneb 0.5 mg-3 mg/3 ml Soln] Metoprolol Succinate (ER) [Toprol 25 mg PO DAILY tab 03/22/17 XL] PARoxetine [Paxil] 10 mg PO DAILY tab 03/22/17 Aspirin 81 mg PO DAILY chew 04/05/17 Atorvastatin [Lipitor] 40 mg PO HS #30 tab 04/05/17 HYDROcodone/APAP 7.5-325MG [Regan 1 tab PO Q4H PRN #30 tab 04/05/17 7.5-325] Isosorbide Mononitrate ER [Imdur] 30 mg PO DAILY #1 tab 04/05/17 Nitroglycerin Sl Tabs [Nitrostat] 0.4 mg SUBLINGUAL Q5M PRN #20 tab 04/05/17 Allergies Allergy/AdvReac Type Severity Reaction Status Date / Time phenobarbital Allergy Unknown Hallucinati Verified 10/20/18 12:00 ons Influenza Virus Vaccines Allergy Unknown Verified 10/20/18 12:00 Review of Systems ROS Statement: Those systems with pertinent positive or pertinent negative responses have been documented in the HPI. ROS Other: All systems not noted in ROS Statement are negative. Past Medical History Past Medical History: Atrial Fibrillation, Cancer, Chest Pain / Angina, COPD, CVA/TIA, GERD/Reflux, GI Bleed, Hyperlipidemia, Hypertension, Myocardial Inf arction (CA), Musculoskeletal Disorder, Renal Disease, Seizure Disorder Additional Past Medical History / Comment(s): colonoscopy then laparoscopic sigmoid colectomy for adenocarcinoma was performed on 07/19/14. Other HX: colon cancer found during colonoscopy-polyp which was adenocarcinoma, SQUAMOUS CELL CARCINOMA LT UPPER LOBE. ULCER; EPILEPTIC - STATES LAST SEIZURE PREV TO 1994; CVA - AFFECTS SPEECH/able to print but not write in cursive. UNABLE TO COMPLETELY CLOSE LEFT HAND R/T hx of LARGE LACERATION. HX OF RT HIP DISORDER, WORE CAST, THEN BRACE FOR 2 YRS, chronic low back pain, renal cysts and kidney stones, GI bleed associated with anticoaulation. Has home O2 which he uses when necessary Last Myocardial Infarction Date:: patient reports 19 years ago History of Any Multi-Drug Resistant Organisms: None Reported Past Surgical History: Orthopedic Surgery Additional Past Surgical History / Comment(s): 07/19/14 Laparoscopic sigmoid colectomy. LEFT HAND SX, EXC VILMA CATARACTS; COLONOSCOPY 05/26/14.BRONCH/BX- PNUEMOTHORAX/CHEST TUBE /WEDGE RESECTION TUMOR LT UPPER LOBE. Past Anesthesia/Blood Transfusion Reactions: No Reported Reaction Past Psychological History: No Psychological Hx Reported Smoking Status: Former smoker Past Alcohol Use History: None Reported Past Drug Use History: None Reported - Past Family History Father Family Medical History: CVA/TIA Mother Family Medical History: Cancer General Exam Limitations: no limitations General appearance: alert, in no apparent distress Head exam: Present: atraumatic, normocephalic Eye exam: Present: normal appearance, PERRL ENT exam: Present: normal exam Neck exam: Present: normal inspection. Absent: tenderness Respiratory exam: Present: wheezes, rhonchi, decreased breath sounds. Absent: respiratory distress Cardiovascular Exam: Present: tachycardia, irregular rhythm GI/Abdominal exam: Present: soft, tenderness (Mild left lower quadrant). Absent: distended, guarding, rebound Extremities exam: Present: normal inspection, normal capillary refill. Absent: pedal edema, calf tenderness Neurological exam: Present: alert Skin exam: Present: warm, dry, pallor. Absent: cyanosis, diaphoretic Course Vital Signs 10/20/18 10/20/18 10/20/18 11:50 11:53 12:00 Temperature 99.3 F Pulse Rate 109 H Respiratory 22 Rate Blood Pressure 109/77 109/77 O2 Sat by Pulse 93 L 94 L Oximetry 10/20/18 10/20/18 10/20/18 12:01 12:10 12:20 Temperature Pulse Rate 110 H Respiratory 22 20 Rate Blood Pressure 109/61 109/61 O2 Sat by Pulse 98 Oximetry 10/20/18 10/20/18 10/20/18 12:30 12:40 12:50 Temperature Pulse Rate 98 107 H 102 H Respiratory 28 H 28 H 19 Rate Blood Pressure 109/61 96/69 96/69 O2 Sat by Pulse 96 96 97 Oximetry 10/20/18 10/20/18 10/20/18 13:00 13:10 13:20 Temperature Pulse Rate 105 H 101 H 101 H Respiratory 17 20 20 Rate Blood Pressure 96/69 100/61 100/61 O2 Sat by Pulse 99 96 100 Oximetry 10/20/18 10/20/18 13:21 13:32 Temperature Pulse Rate 100 99 Respiratory Rate Blood Pressure O2 Sat by Pulse Oximetry EKG Findings - EKG Comments: EKG Findings:: EKG: Atrial fibrillation, rate of 96, QRS duration 76, QTC 439, no ST segment elevation Medical Decision Making - Medical Decision Making 68-year-old male presenting with fever and cough dysuria and left lower quadrant abdominal pain. Workup in the emergency department reveals mild leukocytosis, hemoglobin 9.2 which is stable from previous. Patient has a lactic acidosis 3.5. Urinalysis is clear for infection. CT does show a diverticulitis as well as concern for metastatic lesion to the liver. Chest x-ray negative for focal pneumonia, there is concern for mass in the left upper lobe. Patient is initially started on antibiotics covering pneumonia, Zosyn is added after diverticulitis as diagnosed on CT. Patient will be admitted for IV antibiotics. Case discussed with the admitting physician Dr. Cassidy - Lab Data Result diagrams: 10/20/18 12:04 10/20/18 12:04 Lab Results 10/20/18 10/20/18 10/20/18 Range/Units 12:04 12:04 12:04 WBC 12.3 H (3.8-10.6) k/uL RBC 3.04 L (4.30-5.90) m/uL Hgb 9.2 L D (13.0-17.5) gm/dL Hct 30.3 L (39.0-53.0) % MCV 99.8 (80.0-100.0) fL MCH 30.1 (25.0-35.0) pg MCHC 30.2 L (31.0-37.0) g/dL RDW 27.2 H (11.5-15.5) % Plt Count 244 (150-450) k/uL Neutrophils % 79 % Lymphocytes % 11 % Monocytes % 6 % Eosinophils % 1 % Basophils % 0 % Neutrophils # 9.7 H (1.3-7.7) k/uL Lymphocytes # 1.3 (1.0-4.8) k/uL Monocytes # 0.8 (0-1.0) k/uL Eosinophils # 0.1 (0-0.7) k/uL Basophils # 0.0 (0-0.2) k/uL Hypochromasia Marked Poikilocytosis Moderate Anisocytosis Marked Microcytosis Slight Macrocytosis Marked PT (9.0-12.0) sec INR (<1.2) APTT (22.0-30.0) sec Sodium 136 L (137-145) mmol/L Potassium 4.8 (3.5-5.1) mmol/L Chloride 105 (98-107) mmol/L Carbon Dioxide 20 L (22-30) mmol/L Anion Gap 11 mmol/L BUN 21 H (9-20) mg/dL Creatinine 1.02 (0.66-1.25) mg/dL Est GFR (CKD-EPI)AfAm 86 (>60 ml/min/1.73 sqM) Est GFR (CKD-EPI)NonAf 74 (>60 ml/min/1.73 sqM) Glucose 116 H (74-99) mg/dL Plasma Lactic Acid Jhonny 3.5 H* (0.7-2.0) mmol/L Calcium 9.2 (8.4-10.2) mg/dL Total Bilirubin 1.0 (0.2-1.3) mg/dL AST 28 (17-59) U/L ALT 19 L (21-72) U/L Alkaline Phosphatase 38 (38-126) U/L Total Protein 6.1 L (6.3-8.2) g/dL Albumin 3.5 (3.5-5.0) g/dL Urine Color Urine Appearance (Clear) Urine pH (5.0-8.0) Ur Specific [place] (1.001-1.035) Urine Protein (Negative) Urine Glucose (UA) (Negative) Urine Ketones (Negative) Urine Blood (Negative) Urine Nitrite (Negative) Urine Bilirubin (Negative) Urine Urobilinogen (<2.0) mg/dL Ur Leukocyte Esterase (Negative) 10/20/18 10/20/18 Range/Units 12:04 14:20 WBC (3.8-10.6) k/uL RBC (4.30-5.90) m/uL Hgb (13.0-17.5) gm/dL Hct (39.0-53.0) % MCV (80.0-100.0) fL MCH (25.0-35.0) pg MCHC (31.0-37.0) g/dL RDW (11.5-15.5) % Plt Count (150-450) k/uL Neutrophils % % Lymphocytes % % Monocytes % % Eosinophils % % Basophils % % Neutrophils # (1.3-7.7) k/uL Lymphocytes # (1.0-4.8) k/uL Monocytes # (0-1.0) k/uL Eosinophils # (0-0.7) k/uL Basophils # (0-0.2) k/uL Hypochromasia Poikilocytosis Anisocytosis Microcytosis Macrocytosis PT 10.9 (9.0-12.0) sec INR 1.0 (<1.2) APTT 23.1 (22.0-30.0) sec Sodium (137-145) mmol/L Potassium (3.5-5.1) mmol/L Chloride (98-107) mmol/L Carbon Dioxide (22-30) mmol/L Anion Gap mmol/L BUN (9-20) mg/dL Creatinine (0.66-1.25) mg/dL Est GFR (CKD-EPI)AfAm (>60 ml/min/1.73 sqM) Est GFR (CKD-EPI)NonAf (>60 ml/min/1.73 sqM) Glucose (74-99) mg/dL Plasma Lactic Acid Jhonny (0.7-2.0) mmol/L Calcium (8.4-10.2) mg/dL Total Bilirubin (0.2-1.3) mg/dL AST (17-59) U/L ALT (21-72) U/L Alkaline Phosphatase (38-126) U/L Total Protein (6.3-8.2) g/dL Albumin (3.5-5.0) g/dL Urine Color Yellow Urine Appearance Clear (Clear) Urine pH 5.5 (5.0-8.0) Ur Specific [place] 1.010 (1.001-1.035) Urine Protein Negative (Negative) Urine Glucose (UA) Negative (Negative) Urine Ketones Negative (Negative) Urine Blood Negative (Negative) Urine Nitrite Negative (Negative) Urine Bilirubin Negative (Negative) Urine Urobilinogen <2.0 (<2.0) mg/dL Ur Leukocyte Esterase Negative (Negative) Disposition Clinical Impression: COPD (chronic obstructive pulmonary disease), Diverticulitis, Sepsis Disposition: ADMITTED IP TO THIS [facility] Condition: Stable Is patient prescribed a controlled substance at d/c from ED?: No Referrals: Edd Collins DO [Primary Care Provider] - 1-2 days Decision to Admit Reason: Admit from EC Decision Date: 10/20/18 Decision Time: 15:06
--- NOTE | 2018-10-20 12:32 | XR ---
EXAMINATION TYPE: XR chest 2V DATE OF EXAM: 10/20/2018 HISTORY: Fever. REFERENCE: Previous study dated 04/03/2017. FINDINGS: The lungs are overinflated. There are chronic interstitial changes present bilaterally. The re is a new masslike density in the left upper lobe. No definite pleural fluid is seen. IMPRESSION: 1. COPD. 2. CHRONIC INTERSTITIAL CHANGE. 3. NEW MASSLIKE DENSITY, LEFT UPPER LOBE.
[2018-10-20 12:38] LABS: Partial Thromboplastin Time 23.1 sec (22.0-30.0); Prothrombin Time 10.9 sec (9.0-12.0)
[2018-10-20 12:46] LABS: Anisocytosis Marked; Basophils % (A) 0 %; Eosinophils # (A) 0.1 k/uL (0-0.7); Eosinophils % (A) 1 %; HCT 30.3 % (39.0-53.0); Hypochromasia Marked; Lymphocytes # (A) 1.3 k/uL (1.0-4.8); Lymphocytes % (A) 11 %; MCH 30.1 pg (25.0-35.0); MCHC 30.2 g/dL (31.0-37.0); MCV 99.8 fL (80.0-100.0); Macrocytosis Marked; Mean Platelet Volume 10.6; Microcytosis Slight; Monocytes # (A) 0.8 k/uL (0-1.0); Monocytes % (A) 6 %; Neutrophils # (A) 9.7 k/uL (1.3-7.7); Neutrophils % (A) 79 %; Platelet Count 244 k/uL (150-450); Poikilocytosis Moderate; RBC 3.04 m/uL (4.30-5.90); WBC 12.3 k/uL (3.8-10.6)
[2018-10-20] MEDS ORDERED: SODIUM CHLORIDE 0.9% 500 ML 500 ML IV ONE ×4 (12:46→15:03)
[2018-10-20 12:48] LABS: HGB 9.2 gm/dL (13.0-17.5); RDW 27.2 % (11.5-15.5)
[2018-10-20] MEDS ORDERED: AZITHROMYCIN 500 MG in SODIUM CHLORIDE 0.9% 250 ML IVPB STA (12:57)
[2018-10-20] MEDS ORDERED: IPRATROPIUM-ALBUTEROL 3 ML NEB INHALATION STA (12:58)
[2018-10-20] MEDS ORDERED: DEXAMETHASONE SOD PHOSPHATE 10 MG/ML 1 ML VIAL IV STA (12:58)
[2018-10-20] MEDS ORDERED: CEFEPIME 2 GM in SODIUM CHLORIDE 0.9% 100 ML IVPB STA (12:59)
[2018-10-20] MEDS: ALBUTEROL NEBULIZED 2.5 MG/3 ML INHALATION STA ×2 (13:20→20:13)
[2018-10-20 14:38] LABS: Appearance,Urine Clear (Clear); Bilirubin,Urine Negative (Negative); Blood,Urine Negative (Negative); Color,Urine Yellow; Glucose,Urine (UA) Negative (Negative); Ketones,Urine Negative (Negative); Leukocyte Esterase,Urine Negative (Negative); Nitrite,Urine Negative (Negative); PH, Urine 5.5 (5.0-8.0); Protein,Urine Negative (Negative); Urobilinogen,Urine <2.0 mg/dL (<2.0)
--- NOTE | 2018-10-20 14:52 | CT ---
EXAMINATION TYPE: CT abdomen pelvis w con DATE OF EXAM: 10/20/2018 REFERENCE: Previous study dated 06/13/2014. HISTORY: Pain HISTORY: Generalized abdominal pain CT DLP: 840.6 mGy Automated exposure control for dose reduction was used. TECHNIQUE: Helical acquisition through the abdomen and pelvis was obtained following the oral ingesti on of without Oral Contrast and following intravenous administration of 100 ml mL of Isovue 300. The data was reformatted in axial, coronal and sagittal projections. FINDINGS: There are emphysematous changes within the visualized portions of the lungs as well as valentina e coarse interstitial fibrosis. There is no pleural or pericardial fluid. The heart is not enlarged. Within the abdomen, the gallbladder is been removed. The liver is normal in size. There is a 9.4 mm h ypoattenuating lesion in the posterior segment of the right lobe of the liver. This was not seen with certainty on the previous study. The spleen is unremarkable. Both adrenal glands are normal. There are multiple, simple appearing renal cysts present bilaterally. There is a 1.4 x 1.7 cm cystic lesion in the inferior aspect of the uncinate lobe of the pancreas, th is has not changed in size from the previous examination. There is moderate atheromatous calcification of the visualized arterial tree. There is no significant retroperitoneal, iliac or inguinal adenopathy. The bladder is unremarkable. There is some stranding in the fat adjacent to the junction of the descending colon with sigmoid colo n and there are several diverticula in this region. This is right at the area of the patient's anasto mosis. I could not exclude some mild diverticulitis. The appendix is unremarkable. Small bowel loops are normal. There is hypertrophic spondylosis within the spine as well as facet arthropathy. There is a lesion arising from the posterior aspect of the abdominal wall adjacent to the tip of the liver measuring 1.2 cm which has at least Hounsfield value of approximately 40. This has enlarged sli ghtly since the previous examination. IMPRESSION: 1. QUESTIONABLE MILD DIVERTICULITIS AT THE ANASTOMOSIS SITE OF THE PATIENT'S PREVIOUS COLONIC RESECTI ON. 2. NEW LESION WITHIN THE POSTERIOR SEGMENT OF THE RIGHT LOBE OF THE LIVER. I COULD NOT EXCLUDE METAST ATIC DISEASE. 3. SLIGHT ENLARGEMENT IN THE EXOPHYTIC LESION ARISING FROM THE POSTERIOR WALL OF THE ABDOMEN. 4. MULTIPLE RENAL CYSTS. 5. EMPHYSEMATOUS CHANGE 6. STABLE PANCREATIC LESION IN THE UNCINATE LOBE. 7. DEGENERATIVE CHANGES WITHIN THE SPINE.
[2018-10-20] MEDS ORDERED: PIPERACILLIN-TAZOBACTAM 3.375 GM in SODIUM CHLORIDE 0.9% 100 ML IVPB STA (15:01)
[2018-10-20] MEDS ORDERED: ACETAMINOPHEN TAB 325 MG TAB PO PRN ×2 (15:02→17:58)
[2018-10-20] MEDS ORDERED: NALOXONE 0.4 MG/ML 1 ML VIAL IV PRN (15:02)
[2018-10-20] MEDS ORDERED: NITROGLYCERIN SL TABS 0.4 MG TAB SUBLINGUAL PRN (17:58)
[2018-10-20] MEDS ORDERED: CALCIUM CARBONATE 500 MG CHEWABLE PO PRN (17:58)
[2018-10-20] MEDS ORDERED: MAGNESIUM HYDROXIDE 2,400 MG/10 ML CUP PO PRN (17:58)
[2018-10-20] MEDS: SODIUM CHLORIDE 0.9% 1,000 ML IV SCH (19:09)
[2018-10-20] MEDS: IPRATROPIUM-ALBUTEROL 3 ML NEB IH SCH (20:16)
[2018-10-20] MEDS: SYMBICORT 160-4.5 MCG INHALER INHALATION SCH (20:16)
[2018-10-20] MEDS: carBAMazepine 200 MG TAB PO SCH (20:46)
[2018-10-20] MEDS ORDERED: LEVOTHYROXINE 50 MCG TAB PO SCH (21:00)
[2018-10-21] MEDS: SODIUM CHLORIDE 0.9% 1,000 ML IV SCH ×3 (03:14→17:02)
[2018-10-21] MEDS: LEVOTHYROXINE 50 MCG TAB PO SCH (06:05)
[2018-10-21] MEDS: MORPHINE SULFATE 4 MG/ML SYRINGE IV PRN (06:38)
[2018-10-21] MEDS ORDERED: methylPREDNISolone SOD SUCCI 125 MG/2 ML VIAL IV STA (06:43)
[2018-10-21] MEDS: IPRATROPIUM-ALBUTEROL 3 ML NEB IH SCH ×2 (06:45→10:50)
[2018-10-21] MEDS: BUDESONIDE 1 MG/2 ML NEBU INHALATION SCH ×3 (06:45→20:10)
[2018-10-21] MEDS ORDERED: FUROSEMIDE 10 MG/ML 4 ML VIAL ONE (06:53)
[2018-10-21] MEDS: SYMBICORT 160-4.5 MCG INHALER INHALATION SCH (06:58)
[2018-10-21 06:59] LABS: ABG Base Excess -6.5 mmol/L; ABG HCO3 19 mmol/L (21-25); ABG Oxygen Saturation 97.7 % (94-97); ABG PCO2 35 mmHg (35-45); ABG PH 7.35 (7.35-7.45); ABG PO2 104 mmHg (83-108); ABG TCO2 20 mmol/L (19-24)
[2018-10-21 07:17] LABS: Anisocytosis Marked; HCT 36.2 % (39.0-53.0); Hypochromasia Marked; Macrocytosis Marked; Poikilocytosis Moderate
--- NOTE | 2018-10-21 07:21 | XR ---
EXAMINATION TYPE: XR chest 1V portable DATE OF EXAM: 10/21/2018 HISTORY: SOB . REFERENCE: Previous study dated 10/20/2018. FINDINGS: There is chronic apparent elevation of the right hemidiaphragm. Heart size upper limits of normal. There is worsening bilateral airspace disease and interstitial change. There are small, bilat eral effusions. IMPRESSION: 1. COPD. 2. MASSLIKE DENSITY IN THE LEFT UPPER LOBE. 3. WORSENING INTERSTITIAL CHANGE. THIS MAY REPRESENT ATYPICAL PNEUMONIA. PULMONARY EDEMA SUPERIMPOSED UPON ABNORMAL LUNG ARCHITECTURE COULD ALSO GIVE A SIMILAR APPEARANCE. 4. TINY, BILATERAL EFFUSIONS.
[2018-10-21 07:28] LABS: HGB 10.7 gm/dL (13.0-17.5); MCH 30.9 pg (25.0-35.0); MCHC 29.6 g/dL (31.0-37.0); MCV 104.4 fL (80.0-100.0); Mean Platelet Volume 9.3; Platelet Count 282 k/uL (150-450); RBC 3.46 m/uL (4.30-5.90); WBC 17.3 k/uL (3.8-10.6)
[2018-10-21 07:29] LABS: RDW 26.4 % (11.5-15.5)
[2018-10-21] MEDS: MONTELUKAST 10 MG TAB PO SCH (08:24)
[2018-10-21] MEDS: DIVALPROEX 500 MG TABLET.DR PO SCH ×2 (08:24→17:01)
[2018-10-21] MEDS: GABAPENTIN 100 MG CAP PO PRN (08:24)
[2018-10-21] MEDS: PARoxetine 10 MG TAB PO SCH (08:24)
[2018-10-21] MEDS: LACTOBACILLUS ACIDOPH & BULGAR 1 EACH PACKET PO SCH (08:24)
[2018-10-21] MEDS: POTASSIUM CHLORIDE ER 20 MEQ TAB.ER PO SCH (08:24)
[2018-10-21] MEDS: METOPROLOL SUCCINATE (ER) 25 MG TAB.ER.24H PO SCH (08:24)
[2018-10-21] MEDS: ISOSORBIDE MONONITRATE ER 30 MG TAB.ER.24H PO SCH (08:24)
[2018-10-21] MEDS: carBAMazepine 200 MG TAB PO SCH ×2 (08:25→20:48)
[2018-10-21] MEDS: FAMOTIDINE 20 MG TAB PO SCH ×2 (08:25→17:01)
[2018-10-21] MEDS: MAGNESIUM OXIDE 400 MG TAB PO SCH (08:25)
[2018-10-21] MEDS: TAMSULOSIN 0.4 MG CAP.ER.24H PO SCH (08:25)
[2018-10-21] MEDS: ASPIRIN 81 MG PO SCH (08:25)
[2018-10-21 09:12] LABS: Band Neutrophils % 3 %; Eosinophils # (M) 0.17 k/uL (0-0.7); Lymphocytes # (M) 1.04 k/uL (1.0-4.8); Monocytes # (M) 1.04 k/uL (0-1.0); Neutrophils % (M) 85 %; Nucleated Red Blood Cells 0 /100 WBC (0-0); Total Cells Counted 200
--- NOTE | 2018-10-21 11:38 | P.GSCN ---
History of Present Illness Consult date: 10/21/18 History of present illness: CHIEF COMPLAINT: Abdominal pain HISTORY OF PRESENT ILLNESS: The patient is a 68-year-old male with poor memory with past history of partial colon resection including recent history of colonoscopy performed January 2018. He presented with initially bilateral lower abdominal pain mild and crampy in nature, for less than 2 days. He came into the ER for fever. His white blood cell count was elevated at over 12,000. He does report a productive cough and mild pain along the chest right lower lung. Since admission white blood cell count has elevated to 17,000. He is tolerating regular diet. His abdominal pains completely resolved. General surgery is consulted for his abdominal pain. He has poor recollection of events including most recent colonoscopy from January 2018. Additional history obtained per patient's record. PAST MEDICAL HISTORY: See list. PAST SURGICAL HISTORY: See list. MEDICATIONS: See list. ALLERGIES: See list. SOCIAL HISTORY: No illicit drug use FAMILY HISTORY: No reports of Crohn's disease or inflammatory bowel disease REVIEW OF ORGAN SYSTEMS: CONSTITUTIONAL: Recent fever. No chill. No recent weight loss. EYES: Denies any trouble with vision. No glasses. HEENT: No difficulties with hearing. No nosebleeds. No difficulty swallowing. RESPIRATORY: Has productive cough. Denies dyspnea on exertion. Recent treatment for congestive heart failure including pneumonia. CARDIOVASCULAR: Denies any chest pain, palpitations, or recent heart attacks. GASTROINTESTINAL: Denies fatty food intolerance. Denies change in bowel habits and gas bloat. GENITOURINARY: Denies any blood in urine or increased urinary frequency. NEUROLOGICAL: Denies any numbness or tingling along the distal extremities. No seizure disorders or headaches. Has poor memory. MUSCULOSKELETAL: Has back pain, stiffness or joint arthritis. SKIN: No current skin cancer. No rash. PSYCHIATRIC: Denies current depression or suicidal thoughts. Has poor memory. ENDOCRINE: Denies current thyroid disorders. Denies any blood sugar glucose intolerance. HEME/LYMPHATIC: Denies any lumps and bumps around the neck. No recent deep venous thrombosis. ALLERGY/IMMUNOLOGY: No immunoglobulin therapy. No immune deficiencies. BREAST: Denies current breast lumps, pain or nipple discharge. PHYSICAL EXAM: VITALS: Reviewed CONSTITUTIONAL: Well developed and in no acute distress. EYES: Conjuctivae without sclera icterus. Pupils are equally round and reactive to light. Extraocular movements grossly intact. HEAD, EARS, NOSE, THROAT: Moist buccal mucosa. Head is atraumatic, normocephalic. Hears conversational speech. No nasal drainage. NECK: Supple. No JV distention. No thyroidomegaly. RESPIRATORY: Non-labored respirations and equal bilateral excursions. CARDIOVASCULAR: Irregular rate. Irregular rhythm. Extremities without moderate edema. Palpable 2+ radial pulses. ABDOMEN: No hepatomegaly. Soft. Non-tender. Nondistended. LYMPH: No neck lymphadenopathy. MUSCULOSKELETAL: Nail and fingers with good capillary refill. No clubbing cyanosis or edema SKIN: Warm and well perfused with good skin turgor. NEUROLOGIC: Cranial nerves II through XII grossly intact. Sensation upper and extremities intact. No focal or lateralizing signs. PSYCH: Alert and oriented to person, place. CLINCAL LABS: Reviewed now with elevated white pulses are count. BNP elevated at over 9000. Lactate acid level elevated. EKG: Demonstrates atrial fibrillation MEDICAL TEST: Endoscopy reviewed from January 2018 negative for polyps with severe diverticulosis IMAGING: Independently reviewed the CT of the abdomen and pelvis with minimal inflammation along the sigmoid colon. No perforation or free air identified. ASSESSMENT: 1. Abnormal computed tomography scan 2. Abdominal pain 3. Sigmoid diverticulosis with diverticulitis 4. Active pneumonia 5. History of congestive heart failure, acute 6. Past history of colon resection 7. Lactic acidosis 8. Leukocytosis PLAN: 1. His abdominal pain is resolved however low residual diet advised 2. Adjustment of antibiotics for pneumonia 3. Repeat chest x-ray versus CT. Pulmonary consultation advised 4. No additional surgical intervention needed Thank you for this kind consultation. Past Medical History Past Medical History: Atrial Fibrillation, Cancer, Chest Pain / Angina, COPD, CVA/TIA, GERD/Reflux, GI Bleed, Hyperlipidemia, Hypertension, Myocardial Infarction ([place]), Musculoskeletal Disorder, Renal Disease, Seizure Disorder Additional Past Medical History / Comment(s): colonoscopy then laparoscopic sigmoid colectomy for adenocarcinoma was performed on 07/19/14. Other HX: colon cancer found during colonoscopy-polyp which was adenocarcinoma, SQUAMOUS CELL CARCINOMA LT UPPER LOBE. ULCER; EPILEPTIC - STATES LAST SEIZURE PREV TO 1994; CVA - AFFECTS SPEECH/able to print but not write in cursive. UNABLE TO COMPLETELY CLOSE LEFT HAND R/T hx of LARGE LACERATION. HX OF RT HIP DISORDER, WORE CAST, THEN BRACE FOR 2 YRS, chronic low back pain, renal cysts and kidney stones, GI bleed associated with anticoaulation. Has home O2 which he uses when necessary Last Myocardial Infarction Date:: patient reports 19 years ago History of Any Multi-Drug Resistant Organisms: None Reported Past Surgical History: Orthopedic Surgery Additional Past Surgical History / Comment(s): 07/19/14 Laparoscopic sigmoid colectomy. LEFT HAND SX, EXC VILMA CATARACTS; COLONOSCOPY 05/26/14.BRONCH/BX- PNUEMOTHORAX/CHEST TUBE /WEDGE RESECTION TUMOR LT UPPER LOBE. Past Anesthesia/Blood Transfusion Reactions: No Reported Reaction Past Psychological History: No Psychological Hx Reported Additional Psychological History / Comment(s): PT HAS BEEN A [place] SINCE DISCHARGE FROM [facility] IN [place] 2016. STATED HE USES A CANE AND 1 TO ASSIST. O2 WHEN NEEDED. Smoking Status: Former smoker Past Alcohol Use History: None Reported Additional Past Alcohol Use History / Comment(s): STARTED SMOKING AT AGE 12 SMOKED 4 PPD. QUIT 2006 Past Drug Use History: None Reported - Past Family History Father Family Medical History: CVA/TIA Mother Family Medical History: Cancer Medications and Allergies Home Medications Medication Instructions Recorded Confirmed Type Budesonide-Formot 160-4.5 Mcg 2 puff INHALATION RT-BID 05/22/14 10/20/18 History [Symbicort 160-4.5 Mcg Inhaler] Divalproex [Depakote] 1,000 mg PO BID@0800,1700 05/22/14 10/20/18 History Ipratropium-Albuterol Nebulize 3 ml IH RT-QID neb 03/22/17 10/20/18 Rx [Duoneb 0.5 mg-3 mg/3 ml Soln] Metoprolol Succinate (ER) [Toprol 25 mg PO DAILY tab 03/22/17 10/20/18 Rx XL] PARoxetine [Paxil] 10 mg PO DAILY tab 03/22/17 10/20/18 Rx Bisacodyl [Dulcolax] 10 mg RECTAL DAILY PRN 04/03/17 10/20/18 History Calcium Carbonate [Tums] 500 mg PO Q8H PRN 04/03/17 10/20/18 History Magnesium Hydroxide [Milk of 2,400 mg PO DAILY PRN 04/03/17 10/20/18 History Magnesia] Tamsulosin [Flomax] 0.4 mg PO QAM 04/03/17 10/20/18 History Aspirin 81 mg PO DAILY chew 04/05/17 10/20/18 Rx Nitroglycerin Sl Tabs [Nitrostat] 0.4 mg SUBLINGUAL Q5M PRN #20 tab 04/05/17 10/20/18 Rx Acetaminophen [Tylenol] 650 mg PO Q6H PRN 10/20/18 10/20/18 History Ferrous Sulfate [Feosol] 325 mg PO DAILY 10/20/18 10/20/18 History Folic Acid 1 mg PO DAILY@1700 10/20/18 10/20/18 History Furosemide [Lasix] 40 mg PO DAILY 10/20/18 10/20/18 History Gabapentin [Neurontin] 100 mg PO DAILY PRN 10/20/18 10/20/18 History Isosorbide Mononitrate ER [Imdur] 30 mg PO DAILY@0800 10/20/18 10/20/18 History L.acidoph,Paracasei, B.lactis 1 cap PO DAILY 10/20/18 10/20/18 History [Probiotic] Levalbuterol Nebulized [Xopenex 1.25 mg INHALATION RT-Q8H 10/20/18 10/20/18 History Nebulized] Levothyroxine Sodium [Synthroid] 50 mcg PO DAILY@0600 10/20/18 10/20/18 History Magnesium Oxide 400 mg PO DAILY 10/20/18 10/20/18 History Montelukast [Singulair] 10 mg PO DAILY 10/20/18 10/20/18 History Na Phos,M-B/Na Phos,Di-Ba [Fleet 133 ml RECTAL DAILY PRN 10/20/18 10/20/18 History Adult] Potassium Chloride ER [K-Dur 20] 20 meq PO DAILY 10/20/18 10/20/18 History Ranitidine HCl 150 mg PO BID@0800,1700 10/20/18 10/20/18 History carBAMazepine [TEGretol] 200 mg PO BID 10/20/18 10/20/18 History predniSONE See Taper PO DIRECTED 10/20/18 10/20/18 History Allergies Allergy/AdvReac Type Severity Reaction Status Date / Time phenobarbital Allergy Unknown Hallucinati Verified 10/20/18 16:23 ons Influenza Virus Vaccines Allergy Unknown Verified 10/20/18 16:23 Surgical - Exam Vital Signs Temp Pulse Resp BP Pulse Ox 99.3 F 109 H 22 109/77 93 L 10/20/18 11:50 10/20/18 11:50 10/20/18 11:50 10/20/18 11:50 10/20/18 11:50 Results - Labs 10/21/18 06:39 10/20/18 12:04 Abnormal Lab Results - Last 24 Hours (Table) 10/20/18 10/20/18 10/20/18 Range/Units 12:04 12:04 12:04 WBC 12.3 H (3.8-10.6) k/uL RBC 3.04 L (4.30-5.90) m/uL Hgb 9.2 L D (13.0-17.5) gm/dL Hct 30.3 L (39.0-53.0) % MCV (80.0-100.0) fL MCHC 30.2 L (31.0-37.0) g/dL RDW 27.2 H (11.5-15.5) % Neutrophils # 9.7 H (1.3-7.7) k/uL Neutrophils # (Manual) (1.3-7.7) k/uL Monocytes # (Manual) (0-1.0) k/uL D-Dimer (<0.60) mg/L FEU ABG HCO3 (21-25) mmol/L ABG O2 Saturation (94-97) % Sodium 136 L (137-145) mmol/L Carbon Dioxide 20 L (22-30) mmol/L BUN 21 H (9-20) mg/dL Glucose 116 H (74-99) mg/dL Plasma Lactic Acid Jhonny 3.5 H* (0.7-2.0) mmol/L ALT 19 L (21-72) U/L Total Protein 6.1 L (6.3-8.2) g/dL 10/20/18 10/21/18 10/21/18 Range/Units 16:24 06:39 06:39 WBC 17.3 H (3.8-10.6) k/uL RBC 3.46 L (4.30-5.90) m/uL Hgb 10.7 L (13.0-17.5) gm/dL Hct 36.2 L (39.0-53.0) % MCV 104.4 H (80.0-100.0) fL MCHC 29.6 L (31.0-37.0) g/dL RDW 26.4 H (11.5-15.5) % Neutrophils # (1.3-7.7) k/uL Neutrophils # (Manual) 15.20 H (1.3-7.7) k/uL Monocytes # (Manual) 1.04 H (0-1.0) k/uL D-Dimer 1.60 H (<0.60) mg/L FEU ABG HCO3 (21-25) mmol/L ABG O2 Saturation (94-97) % Sodium (137-145) mmol/L Carbon Dioxide (22-30) mmol/L BUN (9-20) mg/dL Glucose (74-99) mg/dL Plasma Lactic Acid Jhonny 3.5 H* (0.7-2.0) mmol/L ALT (21-72) U/L Total Protein (6.3-8.2) g/dL 10/21/18 10/21/18 Range/Units 06:39 06:58 WBC (3.8-10.6) k/uL RBC (4.30-5.90) m/uL Hgb (13.0-17.5) gm/dL Hct (39.0-53.0) % MCV (80.0-100.0) fL MCHC (31.0-37.0) g/dL RDW (11.5-15.5) % Neutrophils # (1.3-7.7) k/uL Neutrophils # (Manual) (1.3-7.7) k/uL Monocytes # (Manual) (0-1.0) k/uL D-Dimer (<0.60) mg/L FEU ABG HCO3 19 L (21-25) mmol/L ABG O2 Saturation 97.7 H (94-97) % Sodium (137-145) mmol/L Carbon Dioxide (22-30) mmol/L BUN (9-20) mg/dL Glucose (74-99) mg/dL Plasma Lactic Acid Jhonny 2.6 H* (0.7-2.0) mmol/L ALT (21-72) U/L Total Protein (6.3-8.2) g/dL Microbiology - Last 24 Hours (Table) 10/20/18 14:23 Urine Culture - Preliminary Urine,Voided Diabetes panel 10/20/18 Range/Units 12:04 Sodium 136 L (137-145) mmol/L Potassium 4.8 (3.5-5.1) mmol/L Chloride 105 (98-107) mmol/L Carbon Dioxide 20 L (22-30) mmol/L BUN 21 H (9-20) mg/dL Creatinine 1.02 (0.66-1.25) mg/dL Glucose 116 H (74-99) mg/dL Calcium 9.2 (8.4-10.2) mg/dL AST 28 (17-59) U/L ALT 19 L (21-72) U/L Alkaline Phosphatase 38 (38-126) U/L Total Protein 6.1 L (6.3-8.2) g/dL Albumin 3.5 (3.5-5.0) g/dL Calcium panel 10/20/18 Range/Units 12:04 Calcium 9.2 (8.4-10.2) mg/dL Albumin 3.5 (3.5-5.0) g/dL Pituitary panel 10/20/18 Range/Units 12:04 Sodium 136 L (137-145) mmol/L Potassium 4.8 (3.5-5.1) mmol/L Chloride 105 (98-107) mmol/L Carbon Dioxide 20 L (22-30) mmol/L BUN 21 H (9-20) mg/dL Creatinine 1.02 (0.66-1.25) mg/dL Glucose 116 H (74-99) mg/dL Calcium 9.2 (8.4-10.2) mg/dL Adrenal panel 10/20/18 Range/Units 12:04 Sodium 136 L (137-145) mmol/L Potassium 4.8 (3.5-5.1) mmol/L Chloride 105 (98-107) mmol/L Carbon Dioxide 20 L (22-30) mmol/L BUN 21 H (9-20) mg/dL Creatinine 1.02 (0.66-1.25) mg/dL Glucose 116 H (74-99) mg/dL Calcium 9.2 (8.4-10.2) mg/dL Total Bilirubin 1.0 (0.2-1.3) mg/dL AST 28 (17-59) U/L ALT 19 L (21-72) U/L Alkaline Phosphatase 38 (38-126) U/L Total Protein 6.1 L (6.3-8.2) g/dL Albumin 3.5 (3.5-5.0) g/dL Assessment and Plan (1) History of partial colectomy Current Visit: Yes Status: Acute Code(s): Z90.49 - ACQUIRED ABSENCE OF OTHER SPECIFIED PARTS OF DIGESTIVE TRACT SNOMED Code(s): 971525895 (2) Stage 2 chronic kidney disease due to benign hypertension Current Visit: Yes Status: Acute Code(s): I12.9 - HYPERTENSIVE CHRONIC KIDNEY DISEASE W STG 1-4/UNSP CHR KDNY; N18.2 - CHRONIC KIDNEY DISEASE, STAGE 2 (MILD) SNOMED Code(s): 236763365606916 (3) COPD (chronic obstructive pulmonary disease) Current Visit: Yes Status: Acute Code(s): J44.9 - CHRONIC OBSTRUCTIVE PULMONARY DISEASE, UNSPECIFIED SNOMED Code(s): 74554530 (4) Diverticulitis Current Visit: Yes Status: Acute Code(s): K57.92 - DVTRCLI OF INTEST, PART UNSP, W/O PERF OR ABSCESS W/O BLEED SNOMED Code(s): 680930793 (5) At risk for readmission to hospital Current Visit: No Status: Acute Code(s): Z91.89 - OTH PERSONAL RISK FACTORS, NOT ELSEWHERE CLASSIFIED SNOMED Code(s): 5353529240733 (6) Atrial fibrillation Current Visit: No Status: Acute Code(s): I48.91 - UNSPECIFIED ATRIAL FIBRILLATION SNOMED Code(s): 89376237 (7) Bilateral pneumonia Current Visit: No Status: Acute Code(s): J18.9 - PNEUMONIA, UNSPECIFIED ORGANISM SNOMED Code(s): 204902168 (8) History of colon cancer Current Visit: No Status: Acute Code(s): Z85.038 - PERSONAL HISTORY OF MALIGNANT NEOPLASM OF LARGE INTESTINE SNOMED Code(s): 945974637
[2018-10-21] MEDS: IPRATROPIUM-ALBUTEROL 3 ML NEB INHALATION SCH ×5 (15:28→23:06)
[2018-10-21 16:32] LABS: Glucose,Whole Blood 121 mg/dL (75-99)
[2018-10-21] MEDS: INSULIN ASPART (NovoLOG) 100 UNIT/ML VIAL SQ SCH ×2 (16:32→20:48)
--- NOTE | 2018-10-21 16:44 | HP ---
HISTORY AND PHYSICAL DATE OF ADMISSION: October 20, 2018. DATE OF SERVICE: October 21, 2018. PRESENTING COMPLAINT: Abdominal pain, short of breath, fever. HISTORY OF PRESENTING COMPLAINT: This is a 68-year-old patient who is a resident of [facility] being followed by Dr. Collins. Patient's chronic stable medical conditions include GERD, hyperlipidemia, hypertension, coronary artery disease, seizure disorder. The patient is an ex-smoker. The patient presented with fevers. The presentation maybe for about 2 days of abdominal pain, 2 to [address] scan in the ER did show some diverticulitis. There was no blood in the stool. The patient also congested in the chest, cough and bringing up a little bit of sputum. This morning had an episode where he was even more short of breath, congested, quite a bit short of breath. The patient is given a dose of IV steroids and bronchodilator nebulizers, which he felt a bit better. The patient's appetite otherwise has been okay. Tired, run down. The patient at baseline normally able to walk a bit. REVIEW OF SYSTEMS: CONSTITUTIONAL: Low-grade fever, tired, run down. HEENT None. RESPIRATORY as above. CARDIOVASCULAR: None. GASTROINTESTINAL: As above. GENITOURINARY: None. MUSCULOSKELETAL: Arthritic pain in some joints. DERMATOLOGICAL, HEMATOLOGIC, LYMPHATICS: none. PSYCHIATRY none. NEUROLOGICAL none. PAST MEDICAL HISTORY: Atrial fibrillation, COPD, questionable stroke, GERD, GI bleed, hyperlipidemia, hypertension, myocardial infarction, seizure disorder, renal disorder, sigmoid colectomy for adenocarcinoma in 2014, colon cancer, squamous cell carcinoma, left upper lobe, seizures, last one was back in 1994, stroke affecting his speech and affected ability to write, chronic low back pain, kidney stones. PAST SURGICAL HISTORY: Sigmoid colectomy, left hand surgery, bilateral cataract, 2013 had chest tubes wedge resection of the tumor, left upper lobe. SOCIAL HISTORY: Lives at [facility] since 2017. Uses a cane. Oxygen p.r.n. The patient smoked and started smoking at age of 12, smoked 4 packs a day, stopped in 2006. FAMILY HISTORY: Of cancer. HOME MEDICATIONS: 1. Synthroid 50 mcg a day. 2. Tegretol 200 mg b.i.d. 3. Flomax 0.4 mg a day. 4. Zantac 150 mg b.i.d. 5. Potassium 20 mEq a day. 6. Paxil 10 mg a day. 7. Nitrostat 0.4 sublingual q.5 p.r.n. 8. Adult Fleet p.r.n. 9. Singulair 10 mg a day. 10.Toprol-XL 25 mg a day. 11.Magnesium oxide 400 mg a day. 12.Milk of magnesia 2500 mg p.r.n. 13.Xopenex 1.25 q.8. 14.Probiotic 1 capsule p.o. daily. 15.Imdur ER 30 mg p.o. daily. 16.DuoNeb q.i.d. 17.Neurontin 100 mg daily p.r.n. 18.Lasix 40 mg p.o. daily. 19.Folic acid 1 mg p.o. daily at 5:00 pm. 20.Iron 325 p.o. daily. 21.Depakote 1000 mg p.o. daily b.i.d. 22.Tums 500 mg q.8 p.r.n. 23.Symbicort 160/4.5, 2 puffs b.i.d. 24.Dulcolax 10 mg rectally daily p.r.n. 25.Aspirin 81 mg p.o. daily. 26.Tylenol 650 mg q.6h p.r.n. ALLERGIES: PHENOBARBITAL AND INFLUENZA VIRUS. PHYSICAL EXAMINATION: VITAL SIGNS: Vital signs on presentation: Temperature 99.3, pulse 109, respiration 22, blood pressure 109/77, pulse ox 93% on room air. GENERAL APPEARANCE: Average build, lying in bed, tired-appearing. EYES: Pupils are equal. Conjunctivae normal. HEENT: External appearance of nose and ears normal. Oral cavity normal. NECK: JVD not raised. Mass not palpable. RESPIRATORY: Effort increased. LUNGS: Diminished breath sounds. Prolonged expiration. Some wheezing. Some right- sided crackles. CARDIOVASCULAR: First and second sounds normal. No edema. ABDOMEN: Some lower abdominal tenderness. No guarding or rigidity. Bowel sounds are present. LYMPHATICS: No lymph nodes palpable in the neck and axilla. PSYCHIATRY: Alert and oriented x3. Mood and affect normal. NEUROLOGICAL: Pupils equal. Cranial nerves grossly intact. Power and sensation grossly intact. INVESTIGATIONS: White count 17.3, hemoglobin 10.7. Blood gases from this morning showed PO2 104 and pCO2 of 35. Lactic acid on presentation was 3.5. ProBNP 9130. The patient did have a 2-D echocardiogram back in 2017 that showed EF of 50-55 percent. Chest x-ray film, personally reviewed by me shows infiltrate on the right side. Chest x-ray report was noted. CT scan of the abdomen and pelvis showed mild diverticulitis. There is a new lesion in the posterior segment of the right lobe of the liver. ASSESSMENT: 1. Right lower lobe pneumonia suspect gram-negative organism, POA. 2. Acute chronic obstructive pulmonary disease exacerbation in an ex-smoker. 3. Acute sigmoid diverticulitis. 4. Persistent atrial fibrillation. 5. History of left upper lung mass with wedge resection for squamous cell carcinoma. 6. Chronic congestive heart failure from diastolic dysfunction. Ejection fraction 50- 55 percent. 7. Patient is not a candidate for anticoagulation because of prior bleeding in the past. 8. Coronary artery disease, prior history of myocardial infarction. 9. Gastroesophageal reflux disease. 10.Essential hypertension. 11.Hyperlipidemia. 12.Chronic seizure disorder. PLAN: Patient is put on IV cefepime. Home medications are resumed. Also, inhaled steroids, DuoNeb, IV steroids with sliding scale skin insulin was done. The patient is put on a soft bland diet. Pulmonary has been consulted. Expect the patient to be hospitalized at least for 2 nights, the patient also put on IV Zosyn. Care was discussed with the patient. Questions were answered. Copy to Dr. Collins. LILIA / ASHTYN: [id number] /
[2018-10-21] MEDS: FOLIC ACID 1 MG TAB PO SCH (17:01)
[2018-10-21] MEDS: guaiFENesin 600 MG TABLET.ER PO SCH ×2 (17:01→20:48)
[2018-10-21] MEDS: PIPERACILLIN-TAZOBACTAM 3.375 GM in SODIUM CHLORIDE 0.9% 100 ML IVPB SCH ×2 (17:01→22:56)
[2018-10-21] MEDS: methylPREDNISolone SOD SUCCI 40 MG/ML 1 ML VIAL IV SCH ×3 (17:03→22:56)
[2018-10-21] MEDS: FORMOTEROL FUMARATE 20 MCG/2 ML NEBU INHALATION SCH (20:10)
[2018-10-21 20:36] LABS: Glucose,Whole Blood 153 mg/dL (75-99)
[2018-10-22] MEDS: IPRATROPIUM-ALBUTEROL 3 ML NEB INHALATION SCH ×5 (03:38→20:47)
[2018-10-22 06:17] LABS: Glucose,Whole Blood 136 mg/dL (75-99)
[2018-10-22] MEDS: LEVOTHYROXINE 50 MCG TAB PO SCH (06:30)
[2018-10-22] MEDS: INSULIN ASPART (NovoLOG) 100 UNIT/ML VIAL SQ SCH ×4 (06:31→21:45)
[2018-10-22] MEDS: methylPREDNISolone SOD SUCCI 40 MG/ML 1 ML VIAL IV SCH ×2 (08:14→17:15)
[2018-10-22] MEDS: carBAMazepine 200 MG TAB PO SCH ×2 (08:15→21:46)
[2018-10-22] MEDS: ASPIRIN 81 MG PO SCH (08:15)
[2018-10-22] MEDS: MAGNESIUM OXIDE 400 MG TAB PO SCH (08:15)
[2018-10-22] MEDS: TAMSULOSIN 0.4 MG CAP.ER.24H PO SCH (08:15)
[2018-10-22] MEDS: LACTOBACILLUS ACIDOPH & BULGAR 1 EACH PACKET PO SCH (08:15)
[2018-10-22] MEDS: guaiFENesin 600 MG TABLET.ER PO SCH ×2 (08:15→21:46)
[2018-10-22] MEDS: DIVALPROEX 500 MG TABLET.DR PO SCH ×2 (08:15→17:15)
[2018-10-22] MEDS: POTASSIUM CHLORIDE ER 20 MEQ TAB.ER PO SCH (08:15)
[2018-10-22] MEDS: FAMOTIDINE 20 MG TAB PO SCH ×3 (08:15→17:15)
[2018-10-22] MEDS: MONTELUKAST 10 MG TAB PO SCH (08:15)
[2018-10-22] MEDS: ISOSORBIDE MONONITRATE ER 30 MG TAB.ER.24H PO SCH (08:15)
[2018-10-22] MEDS: METOPROLOL SUCCINATE (ER) 25 MG TAB.ER.24H PO SCH (08:15)
[2018-10-22] MEDS: PARoxetine 10 MG TAB PO SCH (08:16)
[2018-10-22] MEDS: PIPERACILLIN-TAZOBACTAM 3.375 GM in SODIUM CHLORIDE 0.9% 100 ML IVPB SCH ×2 (08:16→17:15)
[2018-10-22] MEDS: FORMOTEROL FUMARATE 20 MCG/2 ML NEBU INHALATION SCH ×2 (08:45→20:47)
[2018-10-22] MEDS: BUDESONIDE 1 MG/2 ML NEBU INHALATION SCH ×2 (08:45→20:47)
--- NOTE | 2018-10-22 11:11 | P.PN ---
Subjective Progress Note Date: 10/22/18 CHIEF COMPLAINT: Abdominal pain HISTORY OF PRESENT ILLNESS: Patient examined at the bedside. Patient states his abdominal pain has improved. He reports loose BM this morning. Tolerating diet. Denies nausea or vomiting. Denies fever or chills. PHYSICAL EXAM: VITAL SIGNS: Reviewed. GENERAL: Well-developed in no acute distress. HEENT: No sclera icterus. Extraocular movements grossly intact. Moist buccal mucosa. Head is atraumatic, normocephalic. ABDOMEN: Soft. Nondistended. Nontender. NEUROLOGIC: Alert and oriented. Cranial nerves II through XII grossly intact. ASSESSMENT: 1. Abdominal pain with mild diverticulitis PLAN: 1. No surgical intervention recommended 2. Continue current diet 3. Continue antibiotics 4. We will sign off. Please reconsult if needed Nurse practitioner note has been reviewed by physician. Signing provider agrees with the documented findings, assessment, and plan of care. Objective - Vital Signs Vital signs: Vital Signs Temp 97.9 F 10/22/18 03:13 Pulse 90 10/22/18 09:06 Resp 20 10/22/18 08:00 BP 121/65 10/22/18 08:00 Pulse Ox 100 10/22/18 08:00 Intake & Output 10/21/18 10/22/18 10/22/18 18:59 06:59 18:59 Intake Total 360 100 240 Output Total 2200 654 Balance -1840 -554 240 Weight 70.8 kg Intake: Intake, IV Titration 100 Amount Piperacillin-Tazobactam 3 100 .375 gm In Sodium Chloride 0.9% 100 ml @ 25 mls/hr IVPB Q8HR [facility] Rx# :[id number] Oral 360 240 Output: Urine 2200 650 Stool 4 Other: Voiding Method Toilet # Voids 1 - Labs CBC & Chem 7: 10/21/18 06:39 10/20/18 12:04 Labs: Abnormal Lab Results - Last 24 Hours (Table) 10/21/18 10/21/18 10/22/18 Range/Units 16:31 20:35 06:04 POC Glucose (mg/dL) 121 H 153 H 136 H (75-99) mg/dL Microbiology - Last 24 Hours (Table) 10/20/18 14:23 Urine Culture - Final Urine,Voided 10/20/18 12:04 Blood Culture - Preliminary Blood No Growth after 24 hours Assessment and Plan (1) Abdominal pain Current Visit: Yes Status: Acute Code(s): R10.9 - UNSPECIFIED ABDOMINAL PAIN SNOMED Code(s): 12548173 (2) Diverticulitis Current Visit: Yes Status: Acute Code(s): K57.92 - DVTRCLI OF INTEST, PART UNSP, W/O PERF OR ABSCESS W/O BLEED SNOMED Code(s): 733749925
[2018-10-22 11:34] LABS: Glucose,Whole Blood 154 mg/dL (75-99)
--- NOTE | 2018-10-22 13:50 | CDI ---
Documentation Clarification Form Date: 10/22/2018 CDS: Adalgisa Westfall, CCS, CCDS Admit Date: 10/20/2018 Patient Name: Parag Davila ATTENTION: The Clinical Documentation Specialists (CDI) and [facility] Coding Staff appreciate your assistance in clarifying documentation. Please respond to the clarification below the line at the bottom and electronically sign. The CDI & [facility] Coding staff will review the response and follow-up if needed. Please note: Queries are made part of the Legal Health Record. If you have any questions, please contact the author of this message via ITS. Dr. Cassidy: Per the ED note, that patient is diagnosed with COPD, Diverticulitis and Sepsis. Per the Sepsis Assessment: Suspected sepsis. Per the History & Physical & Surgical consult: possible gram negative pneumonia & acute diverticulitis. History/Risk Factors: GERD, Hyperlipidemia, Hypertension, CAD w/stents, Seizure disorder, CKD II, Sigmoid CA status post colectomy, resection nof ALEN of lung for tumor and former smoker. Clinical Indicators: Presented with abdominal pain, SOB & fever. VS: T 99.3, P 109^, R 22, BP 109/77, PO 93 RA LAB: WBC 12.3^, Hgb 9.2*, Neut 9.7^, Na 136*, BUN 21^, Glucose 116^, Lactic Acid 3.5^^, 3.5^^, 2.6^^. RAD: CXR: COPD, Chronic interstitial change, New mass ALEN. CT A/P: Mild diverticulitis, New lesion right lobe of liver, Multiple renal cysts, Stable pancreatic lesion. Treatment: IV fluid bolus x3, IV Azithromycin, IV Cefepime, IV Zosyn, INH Albuterol, IV Morphine. In your professional opinion, please clarify if these findings signify one of the following conditions, whether the condition is POA, and cause, if known: Sepsis ruled out Sepsis, specify cause if known Severe Sepsis Septic Shock Other Shock Other, please specify Unable to determine Present on Admission Yes No (Last Revision: September 2017) sepsis, POA MTDD
[2018-10-22 16:42] LABS: Glucose,Whole Blood 154 mg/dL (75-99)
[2018-10-22] MEDS: FOLIC ACID 1 MG TAB PO SCH (17:15)
[2018-10-22 21:39] LABS: Glucose,Whole Blood 182 mg/dL (75-99)
[2018-10-22] MEDS: SODIUM CHLORIDE 0.9% 1,000 ML IV SCH (21:48)
--- NOTE | 2018-10-22 22:11 | PN ---
PROGRESS NOTE DATE OF SERVICE: 10/22/2018 PRESENTING COMPLAINT: Short of breath, cough, abdominal pain. INTERVAL HISTORY: Patient admitted with pneumonia, COPD exacerbation, sigmoid diverticulitis. Feels a bit better today. He has a bit of a cough, some congestion. Did tolerate some diet. Sitting up, awake. REVIEW OF SYSTEMS: Done for constitutional, cardiovascular, GI, pulmonary; relevant findings as above. CURRENT MEDICATIONS: Reviewed. They include IV Zosyn. PHYSICAL EXAMINATION: VITAL SIGNS: Temperature 99.3, pulse 109, respiration 22, blood pressure 109/77, pulse ox 93% on room air. GENERAL APPEARANCE: Propped up, tired. EYES: Pupils equal. Conjunctivae normal. NECK: JVD not raised. Mass not palpable. RESPIRATORY: Effort increased. LUNGS: Decreased breath sounds. Prolonged expiration. CARDIOVASCULAR: First and second sounds normal. No edema. ABDOMEN: Soft. Minimal tenderness. No guarding or rigidity. Bowel sounds are present. PSYCHIATRY: Alert and oriented x3. Mood and affect normal. INVESTIGATIONS: Accu-Cheks noted. ASSESSMENT: 1. Right lower lobe pneumonia; suspect gram-negative organism, POA. 2. Acute chronic obstructive pulmonary disease exacerbation in an ex-smoker. 3. Acute sigmoid diverticulitis. 4. Persistent atrial fibrillation. 5. 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 6. Chronic congestive heart failure from diastolic dysfunction; ejection fraction 50% to 55%. 7. Patient is not a candidate for anticoagulation because of prior bleeding. 8. Coronary artery disease with prior history myocardial infarction. 9. Gastroesophageal reflux disease. 10.Essential hypertension. 11.Hyperlipidemia. 12.Chronic seizure disorder. PLAN: Patient to remain on IV Zosyn. Other medication and treatment plan to continue. Oral intake is encouraged. Continue with steroids. Will follow. MMODL / IJN: [id number] /
[2018-10-23] MEDS: PIPERACILLIN-TAZOBACTAM 3.375 GM in SODIUM CHLORIDE 0.9% 100 ML IVPB SCH ×3 (00:27→16:10)
[2018-10-23] MEDS: methylPREDNISolone SOD SUCCI 40 MG/ML 1 ML VIAL IV SCH ×3 (00:28→16:09)
[2018-10-23] MEDS: IPRATROPIUM-ALBUTEROL 3 ML NEB INHALATION SCH ×6 (01:20→19:30)
[2018-10-23 06:04] LABS: Glucose,Whole Blood 132 mg/dL (75-99)
[2018-10-23] MEDS: INSULIN ASPART (NovoLOG) 100 UNIT/ML VIAL SQ SCH ×4 (06:36→21:27)
[2018-10-23] MEDS: LEVOTHYROXINE 50 MCG TAB PO SCH (06:36)
[2018-10-23 07:46] LABS: Anion Gap 8 mmol/L; Anisocytosis Marked; Blood Urea Nitrogen 24 mg/dL (9-20); Calcium 8.5 mg/dL (8.4-10.2); Carbon Dioxide 19 mmol/L (22-30); Chloride 113 mmol/L (98-107); Glucose 107 mg/dL (74-99); HCT 24.2 % (39.0-53.0); HGB 7.5 gm/dL (13.0-17.5); Hypochromasia Marked; MCH 31.2 pg (25.0-35.0); MCHC 30.9 g/dL (31.0-37.0); Macrocytosis Marked; Mean Platelet Volume 7.7; Platelet Count 265 k/uL (150-450); Poikilocytosis Moderate; Potassium 4.6 mmol/L (3.5-5.1); RDW 26.6 % (11.5-15.5); Sodium 140 mmol/L (137-145)
[2018-10-23] MEDS: BUDESONIDE 1 MG/2 ML NEBU INHALATION SCH ×2 (08:22→19:30)
[2018-10-23] MEDS: FORMOTEROL FUMARATE 20 MCG/2 ML NEBU INHALATION SCH ×2 (08:22→19:30)
[2018-10-23 08:33] LABS: Band Neutrophils % 8 %; Metamyelocytes % 1 %; Monocytes # (M) 0.26 k/uL (0-1.0); Myelocytes % 1 %; Neutrophils % (M) 81 %; Nucleated Red Blood Cells 2 /100 WBC (0-0); Total Cells Counted 200
[2018-10-23 08:34] LABS: Lymphocytes # (M) 0.45 k/uL (1.0-4.8); Metamyelocytes # (M) 0.06 k/uL (0); Myelocytes # (M) 0.06 k/uL (0); WBC 6.4 k/uL (3.8-10.6)
[2018-10-23] MEDS: carBAMazepine 200 MG TAB PO SCH ×2 (08:36→21:27)
[2018-10-23] MEDS: ASPIRIN 81 MG PO SCH (08:36)
[2018-10-23] MEDS: FAMOTIDINE 20 MG TAB PO SCH (08:36)
[2018-10-23] MEDS: MONTELUKAST 10 MG TAB PO SCH (08:36)
[2018-10-23] MEDS: ISOSORBIDE MONONITRATE ER 30 MG TAB.ER.24H PO SCH (08:37)
[2018-10-23] MEDS: DIVALPROEX 500 MG TABLET.DR PO SCH ×2 (08:37→16:09)
[2018-10-23] MEDS: TAMSULOSIN 0.4 MG CAP.ER.24H PO SCH (08:37)
[2018-10-23] MEDS: PARoxetine 10 MG TAB PO SCH (08:37)
[2018-10-23] MEDS: METOPROLOL SUCCINATE (ER) 25 MG TAB.ER.24H PO SCH (08:37)
[2018-10-23] MEDS: POTASSIUM CHLORIDE ER 20 MEQ TAB.ER PO SCH (08:37)
[2018-10-23] MEDS: guaiFENesin 600 MG TABLET.ER PO SCH ×2 (08:37→21:27)
[2018-10-23 08:38] LABS: RBC Fragments Present
[2018-10-23] MEDS: LACTOBACILLUS ACIDOPH & BULGAR 1 EACH PACKET PO SCH (08:38)
[2018-10-23 08:39] LABS: Polychromasia Present
[2018-10-23] MEDS: MAGNESIUM OXIDE 400 MG TAB PO SCH (08:39)
[2018-10-23 11:33] LABS: Glucose,Whole Blood 160 mg/dL (75-99)
--- NOTE | 2018-10-23 14:15 | PN ---
PROGRESS NOTE DATE OF SERVICE: 10/23/2018. PRESENTING COMPLAINT: Short of breath. INTERVAL HISTORY: Patient with pneumonia, COPD exacerbation, sigmoid diverticulitis. Abdominal pain is better. Did tolerate all his breakfast. Had a loose stool earlier today, sitting up, just a bit tired. Breathing is slightly short of breath. REVIEW OF SYSTEMS: Done for constitutional, cardiovascular, GI, pulmonary; relevant findings as above. CURRENT MEDICATIONS: Reviewed that include IV Solu-Medrol, IV Zosyn. PHYSICAL EXAMINATION: Temperature 97.8, pulse 96, respiration 16, blood pressure 129/68, pulse ox 98% on 2 L. GENERAL APPEARANCE: Propped up in chair, tired. EYES: Pupils equal, conjunctivae normal. NECK: JVD not raised. Mass not palpable. RESPIRATORY: Effort increased. LUNGS: Decreased breath sounds. CARDIOVASCULAR: First and second sounds normal, no edema. ABDOMEN: Soft, nontender. Liver and spleen not palpable. PSYCHIATRY: Awake, answering questions. INVESTIGATIONS: White count 6.4, hemoglobin 7.5, potassium 4.6, BUN 24, creatinine 0.86. ASSESSMENT: 1. Right lower lobe pneumonia, suspect gram-negative organism, POA. 2. Acute chronic obstructive pulmonary disease exacerbation in an ex-smoker. 3. Acute sigmoid diverticulitis. 4. Persistent atrial fibrillation, rate controlled. 5. History of upper lung mass with resection for squamous cell carcinoma. 6. Chronic congestive heart failure from diastolic dysfunction. Ejection fraction 50%- 55%. 7. Patient is not a candidate for anticoagulation because of prior bleeding. 8. Coronary artery, prior history of myocardial infarction. 9. Gastroesophageal reflux disease. 10.Essential hypertension. 11.Hyperlipidemia. 12.Chronic seizure disorder. PLAN: Patient continues to improve slowly. Continue with another 24 hours, IV Zosyn, tolerating his diet. Patient will be probably here for another day or two more. MMODL / IJN: [id number] /
[2018-10-23] MEDS: FOLIC ACID 1 MG TAB PO SCH (16:09)
[2018-10-23] MEDS: SODIUM CHLORIDE 0.9% 1,000 ML IV SCH (16:15)
[2018-10-23 16:42] LABS: Glucose,Whole Blood 90 mg/dL (75-99)
[2018-10-23 20:25] LABS: Glucose,Whole Blood 159 mg/dL (75-99)
--- NOTE | 2018-10-23 22:00 | P.PN ---
Subjective Progress Note Date: 10/23/18 Patient reports history of gastric ulcers with dark sputum. His Hgb precipitously dropped. Recommend EGD for further work-up including risks. Patient agrees to proceed. He also reports recent history of CDIff 2 months ago now with pain and yellow stools. Repeat Cdiff assay Objective - Vital Signs Vital signs: Vital Signs Temp 97.5 F L 10/23/18 19:17 Pulse 74 10/23/18 19:54 Resp 14 10/23/18 19:17 BP 94/61 10/23/18 19:17 Pulse Ox 92 L 10/23/18 19:17 Intake & Output 10/23/18 10/23/18 10/24/18 06:59 18:59 06:59 Intake Total 960 Output Total 3 Balance 957 Weight 70.5 kg Intake: Oral 960 Output: Stool 3 Other: Voiding Method Toilet Toilet # Voids 1 1 # Bowel Movements 1 1 - Labs CBC & Chem 7: 10/23/18 06:57 10/23/18 06:57 Labs: Abnormal Lab Results - Last 24 Hours (Table) 10/23/18 10/23/18 10/23/18 Range/Units 06:04 06:57 06:57 RBC 2.40 L (4.30-5.90) m/uL Hgb 7.5 L D (13.0-17.5) gm/dL Hct 24.2 L (39.0-53.0) % MCV 101.0 H (80.0-100.0) fL MCHC 30.9 L (31.0-37.0) g/dL RDW 26.6 H (11.5-15.5) % Lymphocytes # (Manual) 0.45 L (1.0-4.8) k/uL Metamyelocytes # (Man) 0.06 H (0) k/uL Myelocytes # (Manual) 0.06 H (0) k/uL Nucleated RBCs 2 H (0-0) /100 WBC Chloride 113 H (98-107) mmol/L Carbon Dioxide 19 L (22-30) mmol/L BUN 24 H (9-20) mg/dL Glucose 107 H (74-99) mg/dL POC Glucose (mg/dL) 132 H (75-99) mg/dL 10/23/18 10/23/18 Range/Units 11:32 20:14 RBC (4.30-5.90) m/uL Hgb (13.0-17.5) gm/dL Hct (39.0-53.0) % MCV (80.0-100.0) fL MCHC (31.0-37.0) g/dL RDW (11.5-15.5) % Lymphocytes # (Manual) (1.0-4.8) k/uL Metamyelocytes # (Man) (0) k/uL Myelocytes # (Manual) (0) k/uL Nucleated RBCs (0-0) /100 WBC Chloride (98-107) mmol/L Carbon Dioxide (22-30) mmol/L BUN (9-20) mg/dL Glucose (74-99) mg/dL POC Glucose (mg/dL) 160 H 159 H (75-99) mg/dL Microbiology - Last 24 Hours (Table) 10/20/18 12:04 Blood Culture - Preliminary Blood No Growth after 72 hours Assessment and Plan (1) History of partial colectomy Current Visit: Yes Status: Acute Code(s): Z90.49 - ACQUIRED ABSENCE OF OTHER SPECIFIED PARTS OF DIGESTIVE TRACT SNOMED Code(s): 884770109 (2) Stage 2 chronic kidney disease due to benign hypertension Current Visit: Yes Status: Acute Code(s): I12.9 - HYPERTENSIVE CHRONIC KIDNEY DISEASE W STG 1-4/UNSP CHR KDNY; N18.2 - CHRONIC KIDNEY DISEASE, STAGE 2 (MILD) SNOMED Code(s): 099302910898565 (3) COPD (chronic obstructive pulmonary disease) Current Visit: Yes Status: Acute Code(s): J44.9 - CHRONIC OBSTRUCTIVE PULMONARY DISEASE, UNSPECIFIED SNOMED Code(s): 96494816 (4) Diverticulitis Current Visit: Yes Status: Acute Code(s): K57.92 - DVTRCLI OF INTEST, PART UNSP, W/O PERF OR ABSCESS W/O BLEED SNOMED Code(s): 442313073 (5) At risk for readmission to hospital Current Visit: No Status: Acute Code(s): Z91.89 - OTH PERSONAL RISK FACTORS, NOT ELSEWHERE CLASSIFIED SNOMED Code(s): 9313348888646 (6) Atrial fibrillation Current Visit: No Status: Acute Code(s): I48.91 - UNSPECIFIED ATRIAL FIBRILLATION SNOMED Code(s): 51327905 (7) Bilateral pneumonia Current Visit: No Status: Acute Code(s): J18.9 - PNEUMONIA, UNSPECIFIED ORGANISM SNOMED Code(s): 261136352 (8) History of colon cancer Current Visit: No Status: Acute Code(s): Z85.038 - PERSONAL HISTORY OF MALIGNANT NEOPLASM OF LARGE INTESTINE SNOMED Code(s): 690795364
[2018-10-24] MEDS: methylPREDNISolone SOD SUCCI 40 MG/ML 1 ML VIAL IV SCH ×4 (00:09→23:35)
[2018-10-24] MEDS: PIPERACILLIN-TAZOBACTAM 3.375 GM in SODIUM CHLORIDE 0.9% 100 ML IVPB SCH ×3 (00:10→18:09)
[2018-10-24] MEDS: IPRATROPIUM-ALBUTEROL 3 ML NEB INHALATION SCH ×6 (01:36→21:51)
[2018-10-24] MEDS: LEVOTHYROXINE 50 MCG TAB PO SCH (05:34)
[2018-10-24 06:57] LABS: Glucose,Whole Blood 111 mg/dL (75-99)
[2018-10-24] MEDS: INSULIN ASPART (NovoLOG) 100 UNIT/ML VIAL SQ SCH ×4 (07:40→21:18)
[2018-10-24] MEDS: FORMOTEROL FUMARATE 20 MCG/2 ML NEBU INHALATION SCH ×2 (07:41→21:51)
[2018-10-24] MEDS: BUDESONIDE 1 MG/2 ML NEBU INHALATION SCH ×2 (07:41→21:51)
[2018-10-24] MEDS ORDERED: PROPOFOL 10 MG/ML 20 ML VIAL IV ONE (11:57)
[2018-10-24] MEDS ORDERED: LIDOCAINE 1% INJ 10MG/ML (20 ML MDV) ONE (11:57)
[2018-10-24] MEDS ORDERED: MIDAZOLAM 2 MG/2 ML VIAL ONE (11:57)
[2018-10-24] MEDS ORDERED: fentaNYL (PF) 50 MCG/ML 2 ML AMP ONE (11:57)
[2018-10-24] MEDS ORDERED: IV FLUID CONTINUATION 1,000 ML IV ONE (12:09)
--- NOTE | 2018-10-24 12:18 | P.PCN ---
Date of Procedure: 10/24/18 Description of Procedure: PREOPERATIVE DIAGNOSIS: History of gastric ulcers Acute blood loss anemia History of gastrointestinal bleed POSTOPERATIVE DIAGNOSIS: History of gastric ulcers Acute blood loss anemia History of gastrointestinal bleed OPERATION: Esophagogastroduodenoscopy SURGEON: Francy Abreu MD ANESTHESIA: MAC. INDICATIONS: The patient is a 68-year-old male who presents with a history of reflux disease. Benefits and risks of the procedure were described. Informed consent was obta ined. DESCRIPTION: The patient was brought into the endoscopy suite and laid in the left lateral decubitus position. An Olympus gastroscope was passed along the posterior oropharynx down to the distal esophagus where the squamocolumnar junction was encountered at 38 cm from the incisors. The stomach was entered and no bile reflux was found. Additional findings are listed below. BThe first through third portion of the duodenum was examined and unremarkable. Retroflexion of the scope confirmed Hill grade 2 lower esophageal valve. The squamocolumnar junction demonstrated LA grade A erosive esophagitis. The stomach was desufflated. The patient tolerated the procedure well. FINDINGS: Squamocolumnar junction 38 cm from the incisors. Diaphragmatic hiatus at 38 cm. Hill grade 2 lower esophageal valve. LA grade A erosive esophagitis. No active duodenitis. Chronic gastritis mild without active bleeding No duodenal ulcers No gastric ulcers RECOMMENDATIONS: Upper endoscopy as needed.
[2018-10-24 12:52] LABS: Glucose,Whole Blood 72 mg/dL (75-99)
--- NOTE | 2018-10-24 13:37 | P.CNPUL ---
History of Present Illness Consult date: 10/24/18 Reason for consult: dyspnea, cough Chief complaint: Abdominal pain History of present illness: 68-year-old male seen and evaluated examined he has a severe COPD emphysema and chronic hypoxic respiratory failure he is on supplemental oxygen and breathing treatment he has a history of lung cancer which was resected in the past he has multiple admission to the hospital for pneumonia he presented into the hospital with lower abdominal pain of less than 2 day duration white cell count is high he has some pain on the on the right chest but is stable now, he is worked up for diverticulosis of GI bleed endoscopies done earlier today which is unremarkable Review of Systems All systems: negative Past Medical History Past Medical History: Atrial Fibrillation, Cancer, Chest Pain / Angina, COPD, CVA/TIA, GERD/Reflux, GI Bleed, Hyperlipidemia, Hypertension, Myocardial Infarction ([place]), Musculoskeletal Disorder, Renal Disease, Seizure Disorder Additional Past Medical History / Comment(s): colonoscopy then laparoscopic sigmoid colectomy for adenocarcinoma was performed on 07/19/14. Other HX: colon cancer found during colonoscopy-polyp which was adenocarcinoma, SQUAMOUS CELL CARCINOMA LT UPPER LOBE. ULCER; EPILEPTIC - STATES LAST SEIZURE PREV TO 1994; CVA - AFFECTS SPEECH/able to print but not write in cursive. UNABLE TO COMPLETELY CLOSE LEFT HAND R/T hx of LARGE LACERATION. HX OF RT HIP DISORDER, WORE CAST, THEN BRACE FOR 2 YRS, chronic low back pain, renal cysts and kidney stones, GI bleed associated with anticoaulation. Has home O2 which he uses when necessary Last Myocardial Infarction Date:: patient reports 19 years ago History of Any Multi-Drug Resistant Organisms: None Reported Past Surgical History: Orthopedic Surgery Additional Past Surgical History / Comment(s): 07/19/14 Laparoscopic sigmoid colectomy. LEFT HAND SX, EXC VILMA CATARACTS; COLONOSCOPY 05/26/14.BRONCH/BX- PNUEMOTHORAX/CHEST TUBE /WEDGE RESECTION TUMOR LT UPPER LOBE. Past Anesthesia/Blood Transfusion Reactions: No Reported Reaction Past Psychological History: No Psychological Hx Reported Additional Psychological History / Comment(s): PT HAS BEEN A [place] SINCE DISCHARGE FROM [facility] IN [place] 2016. STATED HE USES A CANE AND 1 TO ASSIST. O2 WHEN NEEDED. Smoking Status: Former smoker Past Alcohol Use History: None Reported Additional Past Alcohol Use History / Comment(s): STARTED SMOKING AT AGE 12 SMOKED 4 PPD. QUIT 2006 Past Drug Use History: None Reported - Past Family History Father Family Medical History: CVA/TIA Mother Family Medical History: Cancer Medications and Allergies Home Medications Medication Instructions Recorded Confirmed Type Budesonide-Formot 160-4.5 Mcg 2 puff INHALATION RT-BID 05/22/14 10/20/18 History [Symbicort 160-4.5 Mcg Inhaler] Divalproex [Depakote] 1,000 mg PO BID@0800,1700 05/22/14 10/20/18 History Ipratropium-Albuterol Nebulize 3 ml IH RT-QID neb 03/22/17 10/20/18 Rx [Duoneb 0.5 mg-3 mg/3 ml Soln] Metoprolol Succinate (ER) [Toprol 25 mg PO DAILY tab 03/22/17 10/20/18 Rx XL] PARoxetine [Paxil] 10 mg PO DAILY tab 03/22/17 10/20/18 Rx Bisacodyl [Dulcolax] 10 mg RECTAL DAILY PRN 04/03/17 10/20/18 History Calcium Carbonate [Tums] 500 mg PO Q8H PRN 04/03/17 10/20/18 History Magnesium Hydroxide [Milk of 2,400 mg PO DAILY PRN 04/03/17 10/20/18 History Magnesia] Tamsulosin [Flomax] 0.4 mg PO QAM 04/03/17 10/20/18 History Aspirin 81 mg PO DAILY chew 04/05/17 10/20/18 Rx Nitroglycerin Sl Tabs [Nitrostat] 0.4 mg SUBLINGUAL Q5M PRN #20 tab 04/05/17 10/20/18 Rx Acetaminophen [Tylenol] 650 mg PO Q6H PRN 10/20/18 10/20/18 History Ferrous Sulfate [Feosol] 325 mg PO DAILY 10/20/18 10/20/18 History Folic Acid 1 mg PO DAILY@1700 10/20/18 10/20/18 History Furosemide [Lasix] 40 mg PO DAILY 10/20/18 10/20/18 History Gabapentin [Neurontin] 100 mg PO DAILY PRN 10/20/18 10/20/18 History Isosorbide Mononitrate ER [Imdur] 30 mg PO DAILY@0800 10/20/18 10/20/18 History L.acidoph,Paracasei, B.lactis 1 cap PO DAILY 10/20/18 10/20/18 History [Probiotic] Levalbuterol Nebulized [Xopenex 1.25 mg INHALATION RT-Q8H 10/20/18 10/20/18 History Nebulized] Levothyroxine Sodium [Synthroid] 50 mcg PO DAILY@0600 10/20/18 10/20/18 History Magnesium Oxide 400 mg PO DAILY 10/20/18 10/20/18 History Montelukast [Singulair] 10 mg PO DAILY 10/20/18 10/20/18 History Na Phos,M-B/Na Phos,Di-Ba [Fleet 133 ml RECTAL DAILY PRN 10/20/18 10/20/18 History Adult] Potassium Chloride ER [K-Dur 20] 20 meq PO DAILY 10/20/18 10/20/18 History Ranitidine HCl 150 mg PO BID@0800,1700 10/20/18 10/20/18 History carBAMazepine [TEGretol] 200 mg PO BID 10/20/18 10/20/18 History predniSONE See Taper PO DIRECTED 10/20/18 10/20/18 History Allergies Allergy/AdvReac Type Severity Reaction Status Date / Time phenobarbital Allergy Unknown Hallucinati Verified 10/20/18 16:23 ons Influenza Virus Vaccines Allergy Unknown Verified 10/20/18 16:23 Physical Exam Vitals: Vital Signs Temp Pulse Pulse Resp BP Pulse Ox 10/24/18 08:03 101 H 14 10/24/18 07:00 97.9 F 89 16 146/80 96 10/24/18 00:32 98.2 F 101 H 14 141/68 93 L 10/23/18 19:54 74 10/23/18 19:44 70 10/23/18 19:43 72 10/23/18 19:31 74 10/23/18 19:17 97.5 F L 113 H 14 94/61 92 L 10/23/18 16:20 97.8 F 89 18 124/61 99 10/23/18 15:47 76 10/23/18 15:39 76 10/23/18 15:38 98 Intake and Output 10/23/18 10/24/18 10/24/18 22:59 06:59 14:59 Intake Total 300 300 100 Output Total 1 1 Balance 299 300 99 Intake: IV 100 Intake, IV Titration 60 300 Amount Piperacillin-Tazobactam 3 100 .375 gm In Sodium Chloride 0.9% 100 ml @ 25 mls/hr IVPB Q8HR RADHA Rx# :[id number] Sodium Chloride 0.9% 1, 60 200 000 ml @ 20 mls/hr IV . Q24H RADHA Rx#:[id number] Oral 240 Output: Stool 1 1 Other: Voiding Method Toilet # Voids 1 2 # Bowel Movements 1 - EENT Eyes: poor dentition - Neck Neck: normal ROM - Respiratory Respiratory: bilateral: diminished, prolonged expiration, negative: dullness, rales, rhonchi, wheezing, prolonged inspiration - Cardiovascular Rhythm: regular Heart sounds: normal: S1, S2 - Gastrointestinal General gastrointestinal: normal bowel sounds, soft - Neurologic Neurologic: CNII-XII intact - Musculoskeletal Musculoskeletal: gait normal, generalized weakness, strength equal bilaterally - Psychiatric Psychiatric: A&O x's 3, appropriate affect, intact judgment & insight Results - Laboratory Findings CBC and BMP: 10/23/18 06:57 10/23/18 06:57 ABG ABG pH 7.35 (7.35-7.45) 10/21/18 06:58 ABG pCO2 35 mmHg (35-45) 10/21/18 06:58 ABG pO2 104 mmHg (83-108) 10/21/18 06:58 ABG O2 Saturation 97.7 % (94-97) H 10/21/18 06:58 PT/INR, D-dimer PT 10.9 sec (9.0-12.0) 10/20/18 12:04 INR 1.0 (<1.2) 10/20/18 12:04 D-Dimer 1.60 mg/L FEU (<0.60) H 10/21/18 06:39 Abnormal lab findings: Abnormal Labs 10/20/18 10/20/18 10/20/18 12:04 12:04 12:04 WBC 12.3 H RBC 3.04 L Hgb 9.2 L D Hct 30.3 L MCV MCHC 30.2 L RDW 27.2 H Neutrophils # 9.7 H Neutrophils # (Manual) Lymphocytes # (Manual) Monocytes # (Manual) Metamyelocytes # (Man) Myelocytes # (Manual) Nucleated RBCs D-Dimer ABG HCO3 ABG O2 Saturation Sodium 136 L Chloride Carbon Dioxide 20 L BUN 21 H Glucose 116 H POC Glucose (mg/dL) Plasma Lactic Acid Jhonny 3.5 H* ALT 19 L Total Protein 6.1 L C. difficile (EIA) Intrp 10/20/18 10/21/18 10/21/18 16:24 06:39 06:39 WBC 17.3 H RBC 3.46 L Hgb 10.7 L Hct 36.2 L MCV 104.4 H MCHC 29.6 L RDW 26.4 H Neutrophils # Neutrophils # (Manual) 15.20 H Lymphocytes # (Manual) Monocytes # (Manual) 1.04 H Metamyelocytes # (Man) Myelocytes # (Manual) Nucleated RBCs D-Dimer 1.60 H ABG HCO3 ABG O2 Saturation Sodium Chloride Carbon Dioxide BUN Glucose POC Glucose (mg/dL) Plasma Lactic Acid Jhonny 3.5 H* ALT Total Protein C. difficile (EIA) Intrp 10/21/18 10/21/18 10/21/18 06:39 06:58 16:31 WBC RBC Hgb Hct MCV MCHC RDW Neutrophils # Neutrophils # (Manual) Lymphocytes # (Manual) Monocytes # (Manual) Metamyelocytes # (Man) Myelocytes # (Manual) Nucleated RBCs D-Dimer ABG HCO3 19 L ABG O2 Saturation 97.7 H Sodium Chloride Carbon Dioxide BUN Glucose POC Glucose (mg/dL) 121 H Plasma Lactic Acid Jhonny 2.6 H* ALT Total Protein C. difficile (EIA) Intrp 10/21/18 10/22/18 10/22/18 20:35 06:04 11:31 WBC RBC Hgb Hct MCV MCHC RDW Neutrophils # Neutrophils # (Manual) Lymphocytes # (Manual) Monocytes # (Manual) Metamyelocytes # (Man) Myelocytes # (Manual) Nucleated RBCs D-Dimer ABG HCO3 ABG O2 Saturation Sodium Chloride Carbon Dioxide BUN Glucose POC Glucose (mg/dL) 153 H 136 H 154 H Plasma Lactic Acid Jhonny ALT Total Protein C. difficile (EIA) Intrp 10/22/18 10/22/18 10/23/18 16:39 21:37 06:04 WBC RBC Hgb Hct MCV MCHC RDW Neutrophils # Neutrophils # (Manual) Lymphocytes # (Manual) Monocytes # (Manual) Metamyelocytes # (Man) Myelocytes # (Manual) Nucleated RBCs D-Dimer ABG HCO3 ABG O2 Saturation Sodium Chloride Carbon Dioxide BUN Glucose POC Glucose (mg/dL) 154 H 182 H 132 H Plasma Lactic Acid Jhonny ALT Total Protein C. difficile (EIA) Intrp 10/23/18 10/23/18 10/23/18 06:57 06:57 11:32 WBC RBC 2.40 L Hgb 7.5 L D Hct 24.2 L MCV 101.0 H MCHC 30.9 L RDW 26.6 H Neutrophils # Neutrophils # (Manual) Lymphocytes # (Manual) 0.45 L Monocytes # (Manual) Metamyelocytes # (Man) 0.06 H Myelocytes # (Manual) 0.06 H Nucleated RBCs 2 H D-Dimer ABG HCO3 ABG O2 Saturation Sodium Chloride 113 H Carbon Dioxide 19 L BUN 24 H Glucose 107 H POC Glucose (mg/dL) 160 H Plasma Lactic Acid Jhonny ALT Total Protein C. difficile (EIA) Intrp 10/23/18 10/23/18 10/24/18 20:14 23:23 06:46 WBC RBC Hgb Hct MCV MCHC RDW Neutrophils # Neutrophils # (Manual) Lymphocytes # (Manual) Monocytes # (Manual) Metamyelocytes # (Man) Myelocytes # (Manual) Nucleated RBCs D-Dimer ABG HCO3 ABG O2 Saturation Sodium Chloride Carbon Dioxide BUN Glucose POC Glucose (mg/dL) 159 H 111 H Plasma Lactic Acid Jhonny ALT Total Protein C. difficile (EIA) Intrp Positive A 10/24/18 12:40 WBC RBC Hgb Hct MCV MCHC RDW Neutrophils # Neutrophils # (Manual) Lymphocytes # (Manual) Monocytes # (Manual) Metamyelocytes # (Man) Myelocytes # (Manual) Nucleated RBCs D-Dimer ABG HCO3 ABG O2 Saturation Sodium Chloride Carbon Dioxide BUN Glucose POC Glucose (mg/dL) 72 L Plasma Lactic Acid Jhonny ALT Total Protein C. difficile (EIA) Intrp - Diagnostic Findings Chest x-ray: report reviewed, image reviewed (COPD-like changes masslike density in the left upper lobe worsening interstitial infiltrate small bilateral effusion) Assessment and Plan Assessment: Diverticulosis and diverticulitis Abdominal pain related to above Left upper lobe lesion/mass Lesion in the posterior segment of the right liver Stable COPD Chronic respiratory failure Plan: Will get a designated computed tomography scan of the chest Consult oncology
[2018-10-24 14:28] LABS: Glucose,Whole Blood 59 mg/dL (75-99)
[2018-10-24] MEDS ORDERED: DEXTROSE 50% SYRINGE 50 ML IVP STA (14:29)
[2018-10-24] MEDS ORDERED: DEXTROSE 50% SYRINGE 50 ML IVP ONE (14:39)
[2018-10-24 14:49] LABS: Glucose,Whole Blood 61 mg/dL (75-99)
[2018-10-24] MEDS: GABAPENTIN 100 MG CAP PO PRN (15:03)
[2018-10-24] MEDS: METOPROLOL SUCCINATE (ER) 25 MG TAB.ER.24H PO SCH (15:04)
[2018-10-24] MEDS: ISOSORBIDE MONONITRATE ER 30 MG TAB.ER.24H PO SCH (15:04)
[2018-10-24] MEDS: DIVALPROEX 500 MG TABLET.DR PO SCH (15:04)
[2018-10-24 15:07] LABS: Glucose,Whole Blood 80 mg/dL (75-99)
[2018-10-24] MEDS: MORPHINE SULFATE 4 MG/ML SYRINGE IV PRN (15:08)
[2018-10-24] MEDS ORDERED: ALPRAZolam 0.5 MG TAB PO STA (15:17)
[2018-10-24 15:43] LABS: Glucose,Whole Blood 122 mg/dL (75-99)
[2018-10-24] MEDS: guaiFENesin 600 MG TABLET.ER PO SCH ×2 (16:22→20:44)
[2018-10-24] MEDS: LACTOBACILLUS ACIDOPH & BULGAR 1 EACH PACKET PO SCH (16:22)
[2018-10-24] MEDS: FAMOTIDINE 20 MG TAB PO SCH ×2 (16:22→17:44)
[2018-10-24] MEDS: MAGNESIUM OXIDE 400 MG TAB PO SCH (16:22)
[2018-10-24] MEDS: ASPIRIN 81 MG PO SCH (16:22)
[2018-10-24] MEDS: MONTELUKAST 10 MG TAB PO SCH (16:22)
[2018-10-24] MEDS: TAMSULOSIN 0.4 MG CAP.ER.24H PO SCH (16:23)
[2018-10-24] MEDS: POTASSIUM CHLORIDE ER 20 MEQ TAB.ER PO SCH (16:23)
[2018-10-24] MEDS: SODIUM CHLORIDE 0.9% 1,000 ML IV SCH (16:24)
[2018-10-24 16:30] LABS: Anion Gap 10 mmol/L; Blood Urea Nitrogen 24 mg/dL (9-20); Calcium 9.6 mg/dL (8.4-10.2); Carbon Dioxide 18 mmol/L (22-30); Chloride 113 mmol/L (98-107); Glucose 129 mg/dL (74-99); Potassium 4.6 mmol/L (3.5-5.1); Sodium 141 mmol/L (137-145)
[2018-10-24 16:46] LABS: Anisocytosis Marked; HCT 33.7 % (39.0-53.0); HGB 10.1 gm/dL (13.0-17.5); Hypochromasia Marked; MCH 30.8 pg (25.0-35.0); MCHC 29.8 g/dL (31.0-37.0); MCV 103.3 fL (80.0-100.0); Macrocytosis Marked; Mean Platelet Volume 9.3; Platelet Count 316 k/uL (150-450); Poikilocytosis Moderate; RBC 3.27 m/uL (4.30-5.90); WBC 10.6 k/uL (3.8-10.6)
[2018-10-24 16:48] LABS: RDW 26.6 % (11.5-15.5)
[2018-10-24 17:06] LABS: Glucose,Whole Blood 147 mg/dL (75-99)
[2018-10-24 17:19] LABS: Band Neutrophils % 12 %; Lymphocytes # (M) 0.42 k/uL (1.0-4.8); Metamyelocytes # (M) 0.11 k/uL (0); Metamyelocytes % 1 %; Monocytes # (M) 0.32 k/uL (0-1.0); Neutrophils % (M) 80 %; Nucleated Red Blood Cells 0 /100 WBC (0-0); Total Cells Counted 100
[2018-10-24 17:20] LABS: Ovalocytes Present; RBC Fragments Present; Toxic Granulation Present
[2018-10-24] MEDS ORDERED: SODIUM CHLORIDE 0.9% 2,000 ML IV ONE (17:35)
[2018-10-24] MEDS: FOLIC ACID 1 MG TAB PO SCH (17:44)
[2018-10-24] MEDS: PARoxetine 10 MG TAB PO SCH (17:44)
[2018-10-24] MEDS: carBAMazepine 200 MG TAB PO SCH (17:44)
--- NOTE | 2018-10-24 18:14 | CT ---
EXAMINATION TYPE: CT chest wo con DATE OF EXAM: 10/24/2018 COMPARISON: 02/03/2018 HISTORY: chest mass CT DLP: 312 mGycm. Automated Exposure Control for Dose Reduction was Utilized. TECHNIQUE: CT scan of the thorax is performed without IV contrast. FINDINGS: There is diffuse bullous emphysema. This is more severe on the left side. There is extensive coarse i nterstitial infiltrate in both lungs. Heart is slightly enlarged. There is coronary artery calcificat ion. There is atherosclerotic vascular calcification. There is 1.5 cm pretracheal lymph node. There a re no hilar masses. There is mild pleural thickening at the right posterior lung base. There is mild anterior wedging of several thoracic vertebra. There are multiple renal cortical cysts. IMPRESSION: Emphysema and extensive pulmonary fibrosis. There is improvement in the appearance of the lungs with some clearing of airspace infiltrate in both lungs compared to old exam. There is improve ment in the mediastinal and bronchial adenopathy. There is slight increased pleural thickening at the right posterior lung base compared to old exam. This is probably due to inflammatory disease. Multip le mild thoracic compression fractures unchanged..
[2018-10-24 21:08] LABS: Glucose,Whole Blood 117 mg/dL (75-99)
[2018-10-24] MEDS: metroNIDAZOLE 500 MG TAB PO SCH (23:35)
--- NOTE | 2018-10-24 23:52 | PN ---
PROGRESS NOTE DATE OF SERVICE: 10/24/2018 PRESENTING COMPLAINT: Short of breath, tired. INTERVAL HISTORY: This patient presented with pneumonia, COPD exacerbation, and what was initially felt to be sigmoid diverticulitis is now C difficile colitis. Abdominal drain is present on and off. The patient did undergo EGD today. Does feel a bit tired. Some abdominal pain is still present. REVIEW OF SYSTEMS: Done for constitutional, cardiovascular, GI, pulmonary; relevant findings as above. CURRENT MEDICATIONS: Reviewed. They include IV Solu-Medrol and IV Zosyn. PHYSICAL EXAMINATION: Temperature 100, pulse 102, respiration 14, blood pressure 105/67, pulse ox 94% on 3 L. GENERAL APPEARANCE: Sitting up in a chair. Tired-appearing. EYES: Pupils equal. Conjunctivae normal. NECK: JVD not raised. Mass not palpable. RESPIRATORY: Effort increased. LUNGS: Decreased breath sounds. CARDIOVASCULAR: First and second sounds normal. No edema. ABDOMEN: Soft. Mild tenderness. Liver and spleen not palpable. PSYCHIATRY: Awake. Answering questions. INVESTIGATIONS: White count 10.6, hemoglobin 10.1. Potassium 4.6, BUN 24, creatinine 0.96. Stool positive for C difficile. ASSESSMENT: 1. Right lobe pneumonia. Suspect gram-negative organism. 2. Acute severe chronic obstructive pulmonary disease exacerbation in an ex-smoker. 3. Acute Clostridium difficile colitis, less likely diverticulitis. 4. Persistent atrial fibrillation, rate control. 5. History of squamous cell lung cancer with left upper lobe mass resection. 6. Chronic congestive heart failure from diastolic dysfunction; ejection fraction 50% to 55%. 7. Patient not a candidate for anticoagulation because of prior bleeding. 8. Coronary artery disease with prior history of myocardial infarction. 9. Gastroesophageal reflux disease. 10.Essential hypertension. 11.Hyperlipidemia. 12.Chronic seizure disorder. 13.Esophagitis and chronic gastritis per esophagogastroduodenoscopy. PLAN: Will add oral vancomycin and oral Flagyl. Will keep the patient on IV Zosyn. Will also get an ID consultation. Care was discussed with the patient. Patient is to remain on clear liquids. MMODL / IJN: [id number] /
[2018-10-25] MEDS: VANCOMYCIN ORAL SOLUTION 250 MG/5 ML BOTTLE PO SCH ×8 (00:36→23:24)
[2018-10-25] MEDS: IPRATROPIUM-ALBUTEROL 3 ML NEB INHALATION SCH ×6 (00:52→19:31)
[2018-10-25] MEDS: DIVALPROEX 500 MG TABLET.DR PO SCH ×3 (01:28→17:36)
[2018-10-25] MEDS: carBAMazepine 200 MG TAB PO SCH ×3 (01:57→20:57)
[2018-10-25] MEDS: LEVOTHYROXINE 50 MCG TAB PO SCH (06:56)
[2018-10-25 07:24] LABS: Glucose,Whole Blood 106 mg/dL (75-99)
[2018-10-25 08:21] LABS: Anisocytosis Marked; HCT 24.3 % (39.0-53.0); Hypochromasia Marked; MCH 31.1 pg (25.0-35.0); MCHC 30.2 g/dL (31.0-37.0); Macrocytosis Marked; Mean Platelet Volume 7.7; Platelet Count 216 k/uL (150-450); Poikilocytosis Moderate; RBC 2.36 m/uL (4.30-5.90)
[2018-10-25 08:24] LABS: HGB 7.3 gm/dL (13.0-17.5); RDW 26.5 % (11.5-15.5)
[2018-10-25 08:53] LABS: Anion Gap 7 mmol/L; Blood Urea Nitrogen 22 mg/dL (9-20); Carbon Dioxide 17 mmol/L (22-30); Chloride 115 mmol/L (98-107); Glucose 83 mg/dL (74-99); Potassium 4.6 mmol/L (3.5-5.1); Sodium 139 mmol/L (137-145)
[2018-10-25] MEDS: BUDESONIDE 1 MG/2 ML NEBU INHALATION SCH ×2 (09:03→19:31)
[2018-10-25] MEDS: FORMOTEROL FUMARATE 20 MCG/2 ML NEBU INHALATION SCH ×2 (09:03→19:31)
[2018-10-25] MEDS: INSULIN ASPART (NovoLOG) 100 UNIT/ML VIAL SQ SCH ×4 (10:12→21:02)
[2018-10-25] MEDS: MONTELUKAST 10 MG TAB PO SCH (10:13)
[2018-10-25] MEDS: LACTOBACILLUS ACIDOPH & BULGAR 1 EACH PACKET PO SCH (10:13)
[2018-10-25] MEDS: POTASSIUM CHLORIDE ER 20 MEQ TAB.ER PO SCH (10:13)
[2018-10-25] MEDS: ASPIRIN 81 MG PO SCH (10:13)
[2018-10-25] MEDS: metroNIDAZOLE 500 MG TAB PO SCH ×4 (10:14→20:57)
[2018-10-25] MEDS: guaiFENesin 600 MG TABLET.ER PO SCH ×2 (10:14→20:57)
[2018-10-25] MEDS: methylPREDNISolone SOD SUCCI 40 MG/ML 1 ML VIAL IV SCH ×3 (10:14→20:57)
[2018-10-25] MEDS: METOPROLOL SUCCINATE (ER) 25 MG TAB.ER.24H PO SCH (10:14)
[2018-10-25] MEDS: MAGNESIUM OXIDE 400 MG TAB PO SCH (10:14)
[2018-10-25] MEDS: FAMOTIDINE 20 MG TAB PO SCH ×2 (10:15→17:36)
[2018-10-25] MEDS: ISOSORBIDE MONONITRATE ER 30 MG TAB.ER.24H PO SCH (10:15)
[2018-10-25] MEDS: PARoxetine 10 MG TAB PO SCH (10:15)
[2018-10-25] MEDS: TAMSULOSIN 0.4 MG CAP.ER.24H PO SCH (10:15)
--- NOTE | 2018-10-25 11:55 | P.PN ---
Subjective Progress Note Date: 10/25/18 CHIEF COMPLAINT: Abdominal pain HISTORY OF PRESENT ILLNESS: Patient examined at the bedside. Patient s/p EGD revealing esophagitis and chronic mild gastritis without active bleeding. Patient reports bilateral lower quadrant abdominal pain. Positive for CDiff. Caleb chang currently on Vanco and Flagyl. Infectious disease is on consult. Tolerating clear liquid diet. Denies nausea or vomiting. Denies fever or chills. PHYSICAL EXAM: VITAL SIGNS: Reviewed. GENERAL: Well-developed in no acute distress. HEENT: No sclera icterus. Extraocular movements grossly intact. Moist buccal mucosa. Head is atraumatic, normocephalic. ABDOMEN: Soft. Nondistended. Tenderness to bilateral lower quadrants. NEUROLOGIC: Alert and oriented. Cranial nerves II through XII grossly intact. ASSESSMENT: 1. Abdominal pain with clostridium difficile colitis PLAN: 1. Continue clear liquid diet. Advance per primary medicine 2. Continue antibiotics. Infectious disease has been consulted 3. No surgical intervention recommended Nurse practitioner note has been reviewed by physician. Signing provider agrees with the documented findings, assessment, and plan of care. Objective - Vital Signs Vital signs: Vital Signs Temp 97.5 F L 10/25/18 10:38 Pulse 99 10/25/18 10:38 Resp 18 10/25/18 10:38 BP 134/77 10/25/18 10:38 Pulse Ox 94 L 10/25/18 10:38 Intake & Output 10/24/18 10/25/18 10/25/18 18:59 06:59 18:59 Intake Total 100 180 Output Total 1 Balance 99 180 Intake: IV 100 Oral 180 Output: Stool 1 Other: # Voids 3 # Bowel Movements 1 - Labs CBC & Chem 7: 10/25/18 07:13 10/25/18 07:13 Labs: Abnormal Lab Results - Last 24 Hours (Table) 10/24/18 10/24/18 10/24/18 Range/Units 12:40 14:16 14:38 RBC (4.30-5.90) m/uL Hgb (13.0-17.5) gm/dL Hct (39.0-53.0) % MCV (80.0-100.0) fL MCHC (31.0-37.0) g/dL RDW (11.5-15.5) % Neutrophils # (Manual) (1.3-7.7) k/uL Lymphocytes # (Manual) (1.0-4.8) k/uL Metamyelocytes # (Man) (0) k/uL Macrocytosis Chloride (98-107) mmol/L Carbon Dioxide (22-30) mmol/L BUN (9-20) mg/dL Glucose (74-99) mg/dL POC Glucose (mg/dL) 72 L 59 L 61 L (75-99) mg/dL Plasma Lactic Acid Jhonny (0.7-2.0) mmol/L Calcium (8.4-10.2) mg/dL 10/24/18 10/24/18 10/24/18 Range/Units 15:11 15:32 15:53 RBC 3.27 L (4.30-5.90) m/uL Hgb 10.1 L (13.0-17.5) gm/dL Hct 33.7 L (39.0-53.0) % MCV 103.3 H (80.0-100.0) fL MCHC 29.8 L (31.0-37.0) g/dL RDW 26.6 H (11.5-15.5) % Neutrophils # (Manual) 9.70 H (1.3-7.7) k/uL Lymphocytes # (Manual) 0.42 L (1.0-4.8) k/uL Metamyelocytes # (Man) 0.11 H (0) k/uL Macrocytosis Marked A Chloride (98-107) mmol/L Carbon Dioxide (22-30) mmol/L BUN (9-20) mg/dL Glucose (74-99) mg/dL POC Glucose (mg/dL) 122 H (75-99) mg/dL Plasma Lactic Acid Jhonny 5.8 H* (0.7-2.0) mmol/L Calcium (8.4-10.2) mg/dL 10/24/18 10/24/18 10/24/18 Range/Units 15:53 16:46 20:55 RBC (4.30-5.90) m/uL Hgb (13.0-17.5) gm/dL Hct (39.0-53.0) % MCV (80.0-100.0) fL MCHC (31.0-37.0) g/dL RDW (11.5-15.5) % Neutrophils # (Manual) (1.3-7.7) k/uL Lymphocytes # (Manual) (1.0-4.8) k/uL Metamyelocytes # (Man) (0) k/uL Macrocytosis Chloride 113 H (98-107) mmol/L Carbon Dioxide 18 L (22-30) mmol/L BUN 24 H (9-20) mg/dL Glucose 129 H (74-99) mg/dL POC Glucose (mg/dL) 147 H 117 H (75-99) mg/dL Plasma Lactic Acid Jhonny (0.7-2.0) mmol/L Calcium (8.4-10.2) mg/dL 10/25/18 10/25/18 10/25/18 Range/Units 07:11 07:13 07:13 RBC 2.36 L (4.30-5.90) m/uL Hgb 7.3 L D (13.0-17.5) gm/dL Hct 24.3 L (39.0-53.0) % MCV 103.0 H (80.0-100.0) fL MCHC 30.2 L (31.0-37.0) g/dL RDW 26.5 H (11.5-15.5) % Neutrophils # (Manual) (1.3-7.7) k/uL Lymphocytes # (Manual) (1.0-4.8) k/uL Metamyelocytes # (Man) (0) k/uL Macrocytosis Marked A Chloride 115 H (98-107) mmol/L Carbon Dioxide 17 L (22-30) mmol/L BUN 22 H (9-20) mg/dL Glucose (74-99) mg/dL POC Glucose (mg/dL) 106 H (75-99) mg/dL Plasma Lactic Acid Jhonny (0.7-2.0) mmol/L Calcium 8.0 L (8.4-10.2) mg/dL Microbiology - Last 24 Hours (Table) 10/20/18 12:04 Blood Culture - Preliminary Blood No Growth after 96 hours Assessment and Plan (1) Abdominal pain Current Visit: Yes Status: Acute Code(s): R10.9 - UNSPECIFIED ABDOMINAL PAIN SNOMED Code(s): 98420040 (2) Colitis Current Visit: Yes Status: Acute Code(s): K52.9 - NONINFECTIVE GASTROENTERITIS AND COLITIS, UNSPECIFIED SNOMED Code(s): 37676279 (3) C. difficile colitis Current Visit: Yes Status: Acute Code(s): A04.72 - ENTEROCOLITIS D/T CLOSTRIDIUM DIFFICILE, NOT SPCF RECUR SNOMED Code(s): 725700437
[2018-10-25 12:11] LABS: Band Neutrophils % 1 %; Lymphocytes # (M) 0.98 k/uL (1.0-4.8); Monocytes # (M) 0.14 k/uL (0-1.0); Neutrophils % (M) 83 %; Nucleated Red Blood Cells 0 /100 WBC (0-0); Total Cells Counted 100
[2018-10-25 12:12] LABS: RBC Fragments Present; Tear Drop Cells Present
[2018-10-25 12:18] LABS: Glucose,Whole Blood 124 mg/dL (75-99)
--- NOTE | 2018-10-25 16:24 | P.CONS ---
History of Present Illness - Reason for Consult Consult date: 10/25/18 Hx: Lung and COlon Cancer Requesting physician: Rico Nazario - Chief Complaint chest pain, abdominal pain - History of Present Illness The patient is a 67-year-old gentleman, well-known to myself. He is a known history of recurrent lung opacities , for which we are consulted initially in 2013. However , these did resolve with antibiotics in the past. In early 2014 he was diagnosed with colon cancer and underwent resection. He was found to have a stage II cancer, and chemotherapy was not recommended based on stage, per guidelines. The patient has continued on follow-up, and also follows up with Dr. Nazario. On routine CT scans done in 01/31, he was found to have a suspicious nodule in the left upper lobe. He was referred back to Dr. Nazario for further workup. PET scan did show suspicious uptake in this nodule. He was admitted to [facility] about 3 weeks ago for pneumonia. At that time, he did undergo an FNA of left neck nodes. This came back nondiagnostic. A CT-guided biopsy of the left lung nodule was then attempted, I'll let to a pneumothorax. He had a self-retaining chest tube placed, and was transferred here. Pneumothorax continued to progress leading to her tension type situation. Cardiothoracic surgery were thus consulted, and the patient underwent chest tube placement, with eventual resolution of his pneumothorax. He also underwent a thoracoscopic wedge biopsy of the left lung nodule on 03/10/17. This came back positive for squamous cell lung cancer. He has remained stable for the last year without evidence pf recurrent or progressive disease although presents now for increased chest and abdominal pain. He was worked up this admission for diverticulitis or evidence of GO bleed, he runs chronic anemia. Today 7.3. He is status Post endoscopy today. Review of Systems A 14 point review of systems assessed and completed and all negative except HPI Past Medical History Past Medical History: Atrial Fibrillation, Cancer, Chest Pain / Angina, COPD, CVA/TIA, GERD/Reflux, GI Bleed, Hyperlipidemia, Hypertension, Myocardial Infarction (LA), Musculoskeletal Disorder, Renal Disease, Seizure Disorder Additional Past Medical History / Comment(s): colonoscopy then laparoscopic sigmoid colectomy for adenocarcinoma was performed on 07/19/14. Other HX: colon cancer found during colonoscopy-polyp which was adenocarcinoma, SQUAMOUS CELL CARCINOMA LT UPPER LOBE. ULCER; EPILEPTIC - STATES LAST SEIZURE PREV TO 1 995; CVA - AFFECTS SPEECH/able to print but not write in cursive. UNABLE TO COMPLETELY CLOSE LEFT HAND R/T hx of LARGE LACERATION. HX OF RT HIP DISORDER, WORE CAST, THEN BRACE FOR 2 YRS, chronic low back pain, renal cysts and kidney stones, GI bleed associated with anticoaulation. Has home O2 which he uses when necessary Last Myocardial Infarction Date:: patient reports 19 years ago History of Any Multi-Drug Resistant Organisms: None Reported, C-DIFF Year Discovered:: 10/23/18 MDRO Source:: stool Past Surgical History: Orthopedic Surgery Additional Past Surgical History / Comment(s): 07/19/14 Laparoscopic sigmoid colectomy. LEFT HAND SX, EXC VILMA CATARACTS; COLONOSCOPY 05/26/14.BRONCH/BX- PNUEMOTHORAX/CHEST TUBE /WEDGE RESECTION TUMOR LT UPPER LOBE. Past Anesthesia/Blood Transfusion Reactions: No Reported Reaction Past Psychological History: No Psychological Hx Reported Additional Psychological History / Comment(s): PT HAS BEEN A [place] SINCE DISCHARGE FROM [facility]. STATED HE USES A CANE AND 1 TO ASSIST. O2 WHEN NEEDED. Smoking Status: Former smoker Past Alcohol Use History: None Reported Additional Past Alcohol Use History / Comment(s): STARTED SMOKING AT AGE 12 SMO KED 4 PPD. QUIT 2006 Past Drug Use History: None Reported - Past Family History Father Family Medical History: CVA/TIA Mother Family Medical History: Cancer Medications and Allergies Home Medications Medication Instructions Recorded Confirmed Type Budesonide-Formot 160-4.5 Mcg 2 puff INHALATION RT-BID 05/22/14 10/20/18 History [Symbicort 160-4.5 Mcg Inhaler] Divalproex [Depakote] 1,000 mg PO BID@0800,1700 05/22/14 10/20/18 History Ipratropium-Albuterol Nebulize 3 ml IH RT-QID neb 03/22/17 10/20/18 Rx [Duoneb 0.5 mg-3 mg/3 ml Soln] Metoprolol Succinate (ER) [Toprol 25 mg PO DAILY tab 03/22/17 10/20/18 Rx XL] PARoxetine [Paxil] 10 mg PO DAILY tab 03/22/17 10/20/18 Rx Bisacodyl [Dulcolax] 10 mg RECTAL DAILY PRN 04/03/17 10/20/18 History Calcium Carbonate [Tums] 500 mg PO Q8H PRN 04/03/17 10/20/18 History Magnesium Hydroxide [Milk of 2,400 mg PO DAILY PRN 04/03/17 10/20/18 History Magnesia] Tamsulosin [Flomax] 0.4 mg PO QAM 04/03/17 10/20/18 History Aspirin 81 mg PO DAILY chew 04/05/17 10/20/18 Rx Nitroglycerin Sl Tabs [Nitrostat] 0.4 mg SUBLINGUAL Q5M PRN #20 tab 04/05/17 10/20/18 Rx Acetaminophen [Tylenol] 650 mg PO Q6H PRN 10/20/18 10/20/18 History Ferrous Sulfate [Feosol] 325 mg PO DAILY 10/20/18 10/20/18 History Folic Acid 1 mg PO DAILY@1700 10/20/18 10/20/18 History Furosemide [Lasix] 40 mg PO DAILY 10/20/18 10/20/18 History Gabapentin [Neurontin] 100 mg PO DAILY PRN 10/20/18 10/20/18 History Isosorbide Mononitrate ER [Imdur] 30 mg PO DAILY@0800 10/20/18 10/20/18 History L.acidoph,Paracasei, B.lactis 1 cap PO DAILY 10/20/18 10/20/18 History [Probiotic] Levalbuterol Nebulized [Xopenex 1.25 mg INHALATION RT-Q8H 10/20/18 10/20/18 History Nebulized] Levothyroxine Sodium [Synthroid] 50 mcg PO DAILY@0600 10/20/18 10/20/18 History Magnesium Oxide 400 mg PO DAILY 10/20/18 10/20/18 History Montelukast [Singulair] 10 mg PO DAILY 10/20/18 10/20/18 History Na Phos,M-B/Na Phos,Di-Ba [Fleet 133 ml RECTAL DAILY PRN 10/20/18 10/20/18 Histo ry Adult] Potassium Chloride ER [K-Dur 20] 20 meq PO DAILY 10/20/18 10/20/18 History Ranitidine HCl 150 mg PO BID@0800,1700 10/20/18 10/20/18 History carBAMazepine [TEGretol] 200 mg PO BID 10/20/18 10/20/18 History predniSONE See Taper PO DIRECTED 10/20/18 10/20/18 History Allergies Allergy/AdvReac Type Severity Reaction Status Date / Time phenobarbital Allergy Unknown Hallucinati Verified 10/20/18 16:23 ons Influenza Virus Vaccines Allergy Unknown Verified 10/20/18 16:23 Physical Exam Vitals: Vital Signs Temp Pulse Pulse Resp BP Pulse Ox 10/25/18 15:21 86 10/25/18 15:13 85 10/25/18 12:29 84 10/25/18 12:18 84 10/25/18 10:38 97.5 F L 99 18 134/77 94 L 10/25/18 09:24 88 10/25/18 09:13 88 10/25/18 09:03 80 10/25/18 00:04 97.7 F 100 16 110/68 96 10/24/18 19:25 100 F H 102 H 14 105/67 94 L 10/24/18 16:44 99.5 F 115 H 14 129/69 96 Intake and Output 10/25/18 10/25/18 10/25/18 06:59 14:59 22:59 Intake Total 820 Balance 820 Intake: Oral 820 Other: # Voids 2 # Bowel Movements 1 2 Gen: Alert and NAD Head NCNT Neck: Supple No Palpable adenopathy HR: RRR S1S2 Lungs: Rhonchi, Wheeze and mild increased effort Abdomen: NDNT Ext: Mild BLE Edema Results CBC & Chem 7: 10/25/18 07:13 10/25/18 07:13 Labs: Abnormal Lab Results - Last 24 Hours (Table) 10/24/18 10/24/18 10/24/18 Range/Units 15:11 15:53 15:53 RBC 3.27 L (4.30-5.90) m/uL Hgb 10.1 L (13.0-17.5) gm/dL Hct 33.7 L (39.0-53.0) % MCV 103.3 H (80.0-100.0) fL MCHC 29.8 L (31.0-37.0) g/dL RDW 26.6 H (11.5-15.5) % Neutrophils # (Manual) 9.70 H (1.3-7.7) k/uL Lymphocytes # (Manual) 0.42 L (1.0-4.8) k/uL Metamyelocytes # (Man) 0.11 H (0) k/uL Macrocytosis Marked A Chloride 113 H (98-107) mmol/L Carbon Dioxide 18 L (22-30) mmol/L BUN 24 H (9-20) mg/dL Glucose 129 H (74-99) mg/dL POC Glucose (mg/dL) (75-99) mg/dL Plasma Lactic Acid Jhonny 5.8 H* (0.7-2.0) mmol/L Calcium (8.4-10.2) mg/dL 10/24/18 10/24/18 10/25/18 Range/Units 16:46 20:55 07:11 RBC (4.30-5.90) m/uL Hgb (13.0-17.5) gm/dL Hct (39.0-53.0) % MCV (80.0-100.0) fL MCHC (31.0-37.0) g/dL RDW (11.5-15.5) % Neutrophils # (Manual) (1.3-7.7) k/uL Lymphocytes # (Manual) (1.0-4.8) k/uL Metamyelocytes # (Man) (0) k/uL Macrocytosis Chloride (98-107) mmol/L Carbon Dioxide (22-30) mmol/L BUN (9-20) mg/dL Glucose (74-99) mg/dL POC Glucose (mg/dL) 147 H 117 H 106 H (75-99) mg/dL Plasma Lactic Acid Jhonny (0.7-2.0) mmol/L Calcium (8.4-10.2) mg/dL 10/25/18 10/25/18 10/25/18 Range/Units 07:13 07:13 12:06 RBC 2.36 L (4.30-5.90) m/uL Hgb 7.3 L D (13.0-17.5) gm/dL Hct 24.3 L (39.0-53.0) % MCV 103.0 H (80.0-100.0) fL MCHC 30.2 L (31.0-37.0) g/dL RDW 26.5 H (11.5-15.5) % Neutrophils # (Manual) (1.3-7.7) k/uL Lymphocytes # (Manual) 0.98 L (1.0-4.8) k/uL Metamyelocytes # (Man) (0) k/uL Macrocytosis Marked A Chloride 115 H (98-107) mmol/L Carbon Dioxide 17 L (22-30) mmol/L BUN 22 H (9-20) mg/dL Glucose (74-99) mg/dL POC Glucose (mg/dL) 124 H (75-99) mg/dL Plasma Lactic Acid Jhonny (0.7-2.0) mmol/L Calcium 8.0 L (8.4-10.2) mg/dL Microbiology - Last 24 Hours (Table) 10/20/18 12:04 Blood Culture - Preliminary Blood No Growth after 120 hours Assessment and Plan Plan: Macrocytic Anemia: Acute on Chronic likely related to chronic disease/inflammation. Maybe component of nutritioal deficits: - No intervention required today, transfuse less than 7 Abdominal Pain/Diverticultitis: - Status Post endoscopy without evidence of acute bleed or etiology Squamous cell lung cancer: - The patient has had a history of lung opacities in the past, at least 2, which was initially read as suspicious. However, these resolved with antibiotics and were felt to be inflammatory. The newly diagnosed left lung opacity, did show suspicious uptake on PET scan . Wedge resection was positive for squamous cell cancer. Margins were negative. The tumor is comparatively small, measuring 2 cm, with all margins negative. - As of right now it does not appear that the patient has recurrent cancer. Continue to monitor and observe. History of colon cancer - The patient had early stage disease, but adjuvant chemotherapy not indicated based on stage. He has been on follow-up for the same with no evidence of recurrence Physician Attestation: I have completed the full history and physical and agree with above dictation by Paris Adrian dictated as s scribe
[2018-10-25 17:05] LABS: Glucose,Whole Blood 90 mg/dL (75-99)
--- NOTE | 2018-10-25 17:10 | P.PN ---
Subjective Progress Note Date: 10/25/18 11/04/2018: Patient seen and examined. Patient is complaining of continued diarrhea. He states his breathing is not good but it is at his baseline. He denies any fevers and chills. The patient tells me he is positive for C. diff however he is not currently in isolation. Infectious diseases consult. Objective - Vital Signs Vital signs: Vital Signs Temp 97.5 F L 10/25/18 10:38 Pulse 86 10/25/18 15:21 Resp 18 10/25/18 10:38 BP 134/77 10/25/18 10:38 Pulse Ox 94 L 10/25/18 10:38 Intake & Output 10/24/18 10/25/18 10/25/18 18:59 06:59 18:59 Intake Total 100 820 Output Total 1 Balance 99 820 Intake: IV 100 Oral 820 Output: Stool 1 Other: # Voids 3 2 # Bowel Movements 1 2 - Exam Gen.: Patient is alert and oriented 3, no acute distress Cardiovascular: Regular rate and rhythm, S1/S2 Lungs: Diminished breath sounds bilaterally with scattered expiratory wheezing Abdomen: Soft nontender nondistended positive bowel sounds Extremities: Trace edema - Labs CBC & Chem 7: 10/25/18 07:13 10/25/18 07:13 Labs: Abnormal Lab Results - Last 24 Hours (Table) 10/24/18 10/24/18 10/24/18 Range/Units 15:53 16:46 20:55 RBC (4.30-5.90) m/uL Hgb (13.0-17.5) gm/dL Hct (39.0-53.0) % MCV (80.0-100.0) fL MCHC (31.0-37.0) g/dL RDW (11.5-15.5) % Neutrophils # (Manual) 9.70 H (1.3-7.7) k/uL Lymphocytes # (Manual) 0.42 L (1.0-4.8) k/uL Metamyelocytes # (Man) 0.11 H (0) k/uL Macrocytosis Chloride (98-107) mmol/L Carbon Dioxide (22-30) mmol/L BUN (9-20) mg/dL POC Glucose (mg/dL) 147 H 117 H (75-99) mg/dL Calcium (8.4-10.2) mg/dL 10/25/18 10/25/18 10/25/18 Range/Units 07:11 07:13 07:13 RBC 2.36 L (4.30-5.90) m/uL Hgb 7.3 L D (13.0-17.5) gm/dL Hct 24.3 L (39.0-53.0) % MCV 103.0 H (80.0-100.0) fL MCHC 30.2 L (31.0-37.0) g/dL RDW 26.5 H (11.5-15.5) % Neutrophils # (Manual) (1.3-7.7) k/uL Lymphocytes # (Manual) 0.98 L (1.0-4.8) k/uL Metamyelocytes # (Man) (0) k/uL Macrocytosis Marked A Chloride 115 H (98-107) mmol/L Carbon Dioxide 17 L (22-30) mmol/L BUN 22 H (9-20) mg/dL POC Glucose (mg/dL) 106 H (75-99) mg/dL Calcium 8.0 L (8.4-10.2) mg/dL 10/25/18 Range/Units 12:06 RBC (4.30-5.90) m/uL Hgb (13.0-17.5) gm/dL Hct (39.0-53.0) % MCV (80.0-100.0) fL MCHC (31.0-37.0) g/dL RDW (11.5-15.5) % Neutrophils # (Manual) (1.3-7.7) k/uL Lymphocytes # (Manual) (1.0-4.8) k/uL Metamyelocytes # (Man) (0) k/uL Macrocytosis Chloride (98-107) mmol/L Carbon Dioxide (22-30) mmol/L BUN (9-20) mg/dL POC Glucose (mg/dL) 124 H (75-99) mg/dL Calcium (8.4-10.2) mg/dL Microbiology - Last 24 Hours (Table) 10/20/18 12:04 Blood Culture - Preliminary Blood No Growth after 120 hours Assessment and Plan Assessment: End-stage lung disease, very severe COPD/emphysema C. difficile colitis, recurrent Nonanion gap metabolic acidosis likely secondary to intractable diarrhea Severe sepsis associated with pneumonia likely mixed bacterial and/or or gram- negative related Chronic renal failure stage III Chronic CHF, diastolic Persistent atrial fibrillation Anemia, macrocytic History of lung cancer History of AK in the past ABX per ID Gentle rehydration Pulmicort to 1 mg twice a day Singulair Perforomist Continue Mucinex DuoNeb nebs to every 4 hours IV steroids Continue home medications Patient seen and examined covering for Dr. Nazario PT and OT IS and pulmonary hygiene
[2018-10-25 17:11] LABS: Reticulocyte % 1.3 % (0.5-2.0)
[2018-10-25] MEDS: FOLIC ACID 1 MG TAB PO SCH (17:36)
[2018-10-25] MEDS: SODIUM CHLORIDE 0.9% 1,000 ML IV SCH (17:37)
[2018-10-25 21:03] LABS: Glucose,Whole Blood 115 mg/dL (75-99)
--- NOTE | 2018-10-25 23:00 | P.CONS ---
History of Present Illness - Reason for Consult Consult date: 10/25/18 Abdominal infection and pneumonia Requesting physician: Alex Cassidy - Chief Complaint Diarrhea x 2 days - History of Present Illness Patient is a 68-year-old male who was brought into the ER at [facility] for evaluation of fever at the long term and also question of abdominal pain patient also complaining of some cough but no sputum production denies having any worsening shortness of breath the patient had did have a CT of abdominal pelvis which did raise the possibility of diverticulitis at the anastomotic site patient has been treated with Zosyn subsequently did develop significant diarrhea with multiple loose stools about 5-6 per day no blood or mucus in the stool the patient did have left lower abdominal discomfort moreover delayed taking pain 3-4 out of 10 and no radiation some nausea but no vomiting the patient breathing has improved and his cough has resolved a stool for C. diff was sent which came back positive the patient was started on Flagyl and vancomycin and Zosyn was discontinued infectious disease was consulted for further recommendation regarding antibiotic therapy Review of Systems CONSTITUTIONAL: Positive for weakness. Low-grade Fever EYES: No complaint. ENT:No complaint. RESPIRATORY: As per history of present illness CARDIOVASCULAR: No complaint. GENITOURINARY: No complaint. GASTROINTESTINAL: As per history of present illness MUSCULOSKELETAL: No complaint. INTEGUMENTARY: No complaint. PSYCHOLOGICAL: No complaint. ENDOCRINE: No complaint. NEUROLOGIC: No complaint. Past Medical History Past Medical History: Atrial Fibrillation, Cancer, Chest Pain / Angina, COPD, CVA/TIA, GERD/Reflux, GI Bleed, Hyperlipidemia, Hypertension, Myocardial Infarction (MD), Musculoskeletal Disorder, Renal Disease, Seizure Disorder Additional Past Medical History / Comment(s): colonoscopy then laparoscopic sigmoid colectomy for adenocarcinoma was performed on 07/19/14. Other HX: colon cancer found during colonoscopy-polyp which was adenocarcinoma, SQUAMOUS CELL CARCINOMA LT UPPER LOBE. ULCER; EPILEPTIC - STATES LAST SEIZURE PREV TO 1994; CVA - AFFECTS SPEECH/able to print but not write in cursive. UNABLE TO COMPLETELY CLOSE LEFT HAND R/T hx of LARGE LACERATION. HX OF RT HIP DISORDER, WORE CAST, THEN BRACE FOR 2 YRS, chronic low back pain, renal cysts and kidney stones, GI bleed associated with anticoaulation. Has home O2 which he uses when necessary Last Myocardial Infarction Date:: patient reports 19 years ago History of Any Multi-Drug Resistant Organisms: None Reported, C-DIFF Year Discovered:: 10/23/18 MDRO Source:: stool Past Surgical History: Orthopedic Surgery Additional Past Surgical History / Comment(s): 07/19/14 Laparoscopic sigmoid colectomy. LEFT HAND SX, EXC VILMA CATARACTS; COLONOSCOPY 05/26/14.BRONCH/BX- PNUEMOTHORAX/CHEST TUBE /WEDGE RESECTION TUMOR LT UPPER LOBE. Past Anesthesia/Blood Transfusion Reactions: No Reported Reaction Past Psychological History: No Psychological Hx Reported Additional Psychological History / Comment(s): PT HAS BEEN A [place] SINCE DISCHARGE FROM [facility] IN [place] 2017. STATED HE USES A CANE AND 1 TO ASSIST. O2 WHEN NEEDED. Smoking Status: Former smoker Past Alcohol Use History: None Reported Additional Past Alcohol Use History / Comment(s): STARTED SMOKING AT AGE 12 SMOKED 4 PPD. QUIT 2006 Past Drug Use History: None Reported - Past Family History Father Family Medical History: CVA/TIA Mother Family Medical History: Cancer Medications and Allergies Home Medications Medication Instructions Recorded Confirmed Type Budesonide-Formot 160-4.5 Mcg 2 puff INHALATION RT-BID 05/22/14 10/20/18 History [Symbicort 160-4.5 Mcg Inhaler] Divalproex [Depakote] 1,000 mg PO BID@0800,1700 05/22/14 10/20/18 History Ipratropium-Albuterol Nebulize 3 ml IH RT-QID neb 03/22/17 10/20/18 Rx [Duoneb 0.5 mg-3 mg/3 ml Soln] Metoprolol Succinate (ER) [Toprol 25 mg PO DAILY tab 03/22/17 10/20/18 Rx XL] PARoxetine [Paxil] 10 mg PO DAILY tab 03/22/17 10/20/18 Rx Bisacodyl [Dulcolax] 10 mg RECTAL DAILY PRN 04/03/17 10/20/18 History Calcium Carbonate [Tums] 500 mg PO Q8H PRN 04/03/17 10/20/18 History Magnesium Hydroxide [Milk of 2,400 mg PO DAILY PRN 04/03/17 10/20/18 History Magnesia] Tamsulosin [Flomax] 0.4 mg PO QAM 04/03/17 10/20/18 History Aspirin 81 mg PO DAILY chew 04/05/17 10/20/18 Rx Nitroglycerin Sl Tabs [Nitrostat] 0.4 mg SUBLINGUAL Q5M PRN #20 tab 04/05/17 10/20/18 Rx Acetaminophen [Tylenol] 650 mg PO Q6H PRN 10/20/18 10/20/18 History Ferrous Sulfate [Feosol] 325 mg PO DAILY 10/20/18 10/20/18 History Folic Acid 1 mg PO DAILY@1700 10/20/18 10/20/18 History Furosemide [Lasix] 40 mg PO DAILY 10/20/18 10/20/18 History Gabapentin [Neurontin] 100 mg PO DAILY PRN 10/20/18 10/20/18 History Isosorbide Mononitrate ER [Imdur] 30 mg PO DAILY@0800 10/20/18 10/20/18 History L.acidoph,Paracasei, B.lactis 1 cap PO DAILY 10/20/18 10/20/18 History [Probiotic] Levalbuterol Nebulized [Xopenex 1.25 mg INHALATION RT-Q8H 10/20/18 10/20/18 History Nebulized] Levothyroxine Sodium [Synthroid] 50 mcg PO DAILY@0600 10/20/18 10/20/18 History Magnesium Oxide 400 mg PO DAILY 10/20/18 10/20/18 History Montelukast [Singulair] 10 mg PO DAILY 10/20/18 10/20/18 History Na Phos,M-B/Na Phos,Di-Ba [Fleet 133 ml RECTAL DAILY PRN 10/20/18 10/20/18 History Adult] Potassium Chloride ER [K-Dur 20] 20 meq PO DAILY 10/20/18 10/20/18 History Ranitidine HCl 150 mg PO BID@0800,1700 10/20/18 10/20/18 History carBAMazepine [TEGretol] 200 mg PO BID 10/20/18 10/20/18 History predniSONE See Taper PO DIRECTED 10/20/18 10/20/18 History Allergies Allergy/AdvReac Type Severity Reaction Status Date / Time phenobarbital Allergy Unknown Hallucinati Verified 10/20/18 16:23 ons Influenza Virus Vaccines Allergy Unknown Verified 10/20/18 16:23 Physical Exam Vitals: Vital Signs Temp Pulse Pulse Resp BP Pulse Ox 10/25/18 10:38 97.5 F L 99 18 134/77 94 L 10/25/18 09:24 88 10/25/18 09:13 88 10/25/18 09:03 80 10/25/18 00:04 97.7 F 100 16 110/68 96 10/24/18 19:25 100 F H 102 H 14 105/67 94 L 10/24/18 16:44 99.5 F 115 H 14 129/69 96 10/24/18 15:40 78 14 147/81 98 10/24/18 15:24 115 H 18 10/24/18 15:08 118 H 10/24/18 15:05 18 142/98 98 10/24/18 15:00 120 H 10/24/18 14:25 97.4 F L 115 H 22 173/103 92 L 10/24/18 12:40 130 H 22 167/82 89 L Intake and Output 10/24/18 10/25/18 10/25/18 22:59 06:59 14:59 Intake Total 180 Balance 180 Intake: Oral 180 Other: # Bowel Movements 2 1 GENERAL DESCRIPTION: Elderly male lying in bed, no distress. No tachypnea or accessory muscle of respiration use. HEENT: Shows Pallor , no scleral icterus. Oral mucous membrane is dry. No pharyngeal erythema or thrush NECK: Trachea central, no thyromegaly. LUNGS: Unlabored breathing. Decreased present at the base. No wheeze or crackle. HEART: S1, S2, regular rate and rhythm. No loud murmur ABDOMEN: Soft, mild left lower quadrant tenderness , no guarding or rigidity, no organomegaly EXTREMITIES: No edema of feet. SKIN: No rash, no masses palpable. NEUROLOGICAL: The patient is awake, alert, oriented x3, mood and affect normal. Results CBC & Chem 7: 10/25/18 07:13 10/25/18 07:13 Labs: Abnormal Lab Results - Last 24 Hours (Table) 10/24/18 10/24/18 10/24/18 Range/Units 12:40 14:16 14:38 RBC (4.30-5.90) m/uL Hgb (13.0-17.5) gm/dL Hct (39.0-53.0) % MCV (80.0-100.0) fL MCHC (31.0-37.0) g/dL RDW (11.5-15.5) % Neutrophils # (Manual) (1.3-7.7) k/uL Lymphocytes # (Manual) (1.0-4.8) k/uL Metamyelocytes # (Man) (0) k/uL Macrocytosis Chloride (98-107) mmol/L Carbon Dioxide (22-30) mmol/L BUN (9-20) mg/dL Glucose (74-99) mg/dL POC Glucose (mg/dL) 72 L 59 L 61 L (75-99) mg/dL Plasma Lactic Acid Jhonny (0.7-2.0) mmol/L Calcium (8.4-10.2) mg/dL 10/24/18 10/24/18 10/24/18 Range/Units 15:11 15:32 15:53 RBC 3.27 L (4.30-5.90) m/uL Hgb 10.1 L (13.0-17.5) gm/dL Hct 33.7 L (39.0-53.0) % MCV 103.3 H (80.0-100.0) fL MCHC 29.8 L (31.0-37.0) g/dL RDW 26.6 H (11.5-15.5) % Neutrophils # (Manual) 9.70 H (1.3-7.7) k/uL Lymphocytes # (Manual) 0.42 L (1.0-4.8) k/uL Metamyelocytes # (Man) 0.11 H (0) k/uL Macrocytosis Marked A Chloride (98-107) mmol/L Carbon Dioxide (22-30) mmol/L BUN (9-20) mg/dL Glucose (74-99) mg/dL POC Glucose (mg/dL) 122 H (75-99) mg/dL Plasma Lactic Acid Jhonny 5.8 H* (0.7-2.0) mmol/L Calcium (8.4-10.2) mg/dL 10/24/18 10/24/18 10/24/18 Range/Units 15:53 16:46 20:55 RBC (4.30-5.90) m/uL Hgb (13.0-17.5) gm/dL Hct (39.0-53.0) % MCV (80.0-100.0) fL MCHC (31.0-37.0) g/dL RDW (11.5-15.5) % Neutrophils # (Manual) (1.3-7.7) k/uL Lymphocytes # (Manual) (1.0-4.8) k/uL Metamyelocytes # (Man) (0) k/uL Macrocytosis Chloride 113 H (98-107) mmol/L Carbon Dioxide 18 L (22-30) mmol/L BUN 24 H (9-20) mg/dL Glucose 129 H (74-99) mg/dL POC Glucose (mg/dL) 147 H 117 H (75-99) mg/dL Plasma Lactic Acid Jhonny (0.7-2.0) mmol/L Calcium (8.4-10.2) mg/dL 10/25/18 10/25/18 10/25/18 Range/Units 07:11 07:13 07:13 RBC 2.36 L (4.30-5.90) m/uL Hgb 7.3 L D (13.0-17.5) gm/dL Hct 24.3 L (39.0-53.0) % MCV 103.0 H (80.0-100.0) fL MCHC 30.2 L (31.0-37.0) g/dL RDW 26.5 H (11.5-15.5) % Neutrophils # (Manual) (1.3-7.7) k/uL Lymphocytes # (Manual) (1.0-4.8) k/uL Metamyelocytes # (Man) (0) k/uL Macrocytosis Marked A Chloride 115 H (98-107) mmol/L Carbon Dioxide 17 L (22-30) mmol/L BUN 22 H (9-20) mg/dL Glucose (74-99) mg/dL POC Glucose (mg/dL) 106 H (75-99) mg/dL Plasma Lactic Acid Jhonny (0.7-2.0) mmol/L Calcium 8.0 L (8.4-10.2) mg/dL Microbiology - Last 24 Hours (Table) 10/20/18 12:04 Blood Culture - Preliminary Blood No Growth after 96 hours Assessment and Plan Assessment: 1-patient admitted hospital with fever and this patient who did have some lower abdominal pain initially CT of abdominal and pelvis raises the possibility of diverticulitis at the anastomotic site however the patient or significant diarrhea with stool for C. diff positive likely recurrent C. diff colitis in this patient who did have a previous history of C. diff colitis 2-patient did have mild cough on presentation with initial clinical suspicious for pneumonia however the patient denies significant cough or sputum production rather overall improvement in his respiratory symptoms clinical suspicious low for underlying pneumonia Plan: 1-vancomycin 250 mg by mouth every 6 hours , however discontinue the Flagyl 2- agree with discontinuation of the Zosyn 3-if diarrhea persists add Questran for symptomatic relief We will follow-up on clinical condition and cultures to further adjust medication if needed Thank you for this consultation will follow this patient along with you Time with Patient: Greater than 30
[2018-10-26] MEDS: IPRATROPIUM-ALBUTEROL 3 ML NEB INHALATION SCH ×7 (00:51→23:24)
[2018-10-26 02:00] LABS: Folate, Serum 15.4 ng/mL; Iron Saturation 24.28 (15.00-50.00)
[2018-10-26] MEDS: VANCOMYCIN ORAL SOLUTION 250 MG/5 ML BOTTLE PO SCH ×3 (05:39→17:47)
[2018-10-26] MEDS: LEVOTHYROXINE 50 MCG TAB PO SCH (05:39)
[2018-10-26 07:39] LABS: Glucose,Whole Blood 107 mg/dL (75-99)
[2018-10-26] MEDS: INSULIN ASPART (NovoLOG) 100 UNIT/ML VIAL SQ SCH ×3 (07:39→17:01)
--- NOTE | 2018-10-26 07:44 | PN ---
PROGRESS NOTE DATE OF SERVICE: 10/25/2018 PRESENTING COMPLAINT: Abdominal pain. INTERVAL HISTORY: Patient presented with pneumonia with COPD exacerbation and acute C difficile colitis. Breathing is much better. Diarrhea is still present, but started to slow down. Did tolerate a light diet. Overall looks and feels a bit better. REVIEW OF SYSTEMS: Done for constitutional, cardiovascular, GI, pulmonary; relevant findings as above. CURRENT MEDICATIONS: Current medications are reviewed that include DuoNeb, bronchodilators, oral vancomycin. Zosyn and Flagyl were discontinued per ID. PHYSICAL EXAMINATION: On examination, temperature 98, pulse 82, respiratory 15, blood pressure 115/68, pulse ox 96% on 3 L. GENERAL APPEARANCE: Looking better, sitting up, awake. EYES: Pupils equal. Conjunctivae normal. NECK: JVD not raised. Mass not palpable. RESPIRATORY: Effort increased. LUNGS: Decreased breath sounds, less wheezing. CARDIOVASCULAR: First and second sounds normal. No edema. ABDOMEN: Decreased tenderness, soft. Liver and spleen not palpable. PSYCHIATRY: Awake, answering questions. INVESTIGATIONS: White count 7, hemoglobin 7.3. Potassium 4.6, BUN 22, creatinine 0.82. ASSESSMENT: 1. Right lower lobe pneumonia with improvement. 2. Acute severe chronic obstructive pulmonary disease exacerbation in an ex-smoker, improved. 3. Acute Clostridium difficile colitis. Diverticulitis unlikely. 4. Persistent atrial fibrillation, rate controlled. 5. History of squamous cell lung cancer with left upper lobe mass resection. 6. Chronic congestive heart failure from diastolic dysfunction. Ejection fraction 50% to 55%. 7. Patient not a candidate for anticoagulation because of prior bleeding. 8. Coronary artery disease with prior history of myocardial infarction. 9. Gastroesophageal reflux disease. 10.Essential hypertension. 11.Hyperlipidemia. 12.Chronic seizure disorder. 13.Esophagitis and gastritis per EGD. PLAN: Continue patient on vancomycin. Flagyl and Zosyn has been discontinued per ID. Overall, patient is doing better. Encouraged to be out of bed. Advance diet as tolerated. MMODL / IJN: [id number] /
[2018-10-26] MEDS: DIVALPROEX 500 MG TABLET.DR PO SCH ×2 (07:49→17:01)
[2018-10-26] MEDS: MONTELUKAST 10 MG TAB PO SCH (07:49)
[2018-10-26] MEDS: TAMSULOSIN 0.4 MG CAP.ER.24H PO SCH (07:49)
[2018-10-26] MEDS: ASPIRIN 81 MG PO SCH (07:49)
[2018-10-26] MEDS: LACTOBACILLUS ACIDOPH & BULGAR 1 EACH PACKET PO SCH (07:49)
[2018-10-26] MEDS: guaiFENesin 600 MG TABLET.ER PO SCH (07:49)
[2018-10-26] MEDS: MAGNESIUM OXIDE 400 MG TAB PO SCH (07:50)
[2018-10-26] MEDS: PARoxetine 10 MG TAB PO SCH (07:50)
[2018-10-26] MEDS: methylPREDNISolone SOD SUCCI 40 MG/ML 1 ML VIAL IV SCH (07:50)
[2018-10-26] MEDS: FAMOTIDINE 20 MG TAB PO SCH ×2 (07:50→17:01)
[2018-10-26] MEDS: carBAMazepine 200 MG TAB PO SCH (07:50)
[2018-10-26] MEDS: ISOSORBIDE MONONITRATE ER 30 MG TAB.ER.24H PO SCH (07:50)
[2018-10-26] MEDS: METOPROLOL SUCCINATE (ER) 25 MG TAB.ER.24H PO SCH (07:50)
[2018-10-26] MEDS: POTASSIUM CHLORIDE ER 20 MEQ TAB.ER PO SCH (07:50)
[2018-10-26] MEDS: FORMOTEROL FUMARATE 20 MCG/2 ML NEBU INHALATION SCH ×2 (09:13→18:47)
[2018-10-26] MEDS: BUDESONIDE 1 MG/2 ML NEBU INHALATION SCH ×2 (09:13→18:47)
[2018-10-26 09:25] LABS: Anion Gap 8 mmol/L; Blood Urea Nitrogen 16 mg/dL (9-20); Calcium 8.1 mg/dL (8.4-10.2); Carbon Dioxide 17 mmol/L (22-30); Chloride 115 mmol/L (98-107); Glucose 71 mg/dL (74-99); Sodium 140 mmol/L (137-145)
[2018-10-26 10:43] VITALS: BMI 22.3
[2018-10-26 12:08] LABS: Glucose,Whole Blood 121 mg/dL (75-99)
--- NOTE | 2018-10-26 14:47 | P.PN ---
Subjective Progress Note Date: 10/26/18 10/26/2018: Patient seen and examined for follow-up. The patient is resting in bed. He is on 2 L nasal cannula. The patient states he is coughing up some blood. The does have a nap cane which has clear phlegm with blood admixed. The patient states he continues to have diarrhea. He has been afebrile. Objective - Vital Signs Vital signs: Vital Signs Temp 97.5 F L 10/26/18 07:00 Pulse 112 H 10/26/18 12:46 Resp 16 10/26/18 07:00 BP 117/68 10/26/18 07:00 Pulse Ox 95 10/26/18 09:13 Intake & Output 10/25/18 10/26/18 10/26/18 18:59 06:59 18:59 Intake Total 820 390 610 Output Total 1 Balance 820 390 609 Weight 70.5 kg Intake: Intake, IV Titration 70 160 Amount Sodium Chloride 0.9% 1, 70 160 000 ml @ 20 mls/hr IV . Q24H [facility] Rx#:[id number] Oral 820 320 450 Output: Stool 1 Other: Voiding Method Toilet Toilet # Voids 2 1 # Bowel Movements 2 3 - Exam Gen.: Patient is alert and oriented 3, no acute distress Cardiovascular: Regular rate and rhythm, S1/S2 Lungs: Diminished breath sounds bilaterally with scattered expiratory wheezing Abdomen: Soft nontender nondistended positive bowel sounds Extremities: Trace edema - Labs CBC & Chem 7: 10/25/18 07:13 10/26/18 08:57 Labs: Abnormal Lab Results - Last 24 Hours (Table) 10/25/18 10/25/18 10/26/18 Range/Units 07:15 20:52 07:28 Chloride (98-107) mmol/L Carbon Dioxide (22-30) mmol/L Glucose (74-99) mg/dL POC Glucose (mg/dL) 115 H 107 H (75-99) mg/dL Calcium (8.4-10.2) mg/dL Iron 42 L (65-175) ug/dL TIBC 173 L (228-460) ug/dL Ferritin 574.4 H (22.0-322.0) ng/mL 10/26/18 10/26/18 Range/Units 08:57 11:55 Chloride 115 H (98-107) mmol/L Carbon Dioxide 17 L (22-30) mmol/L Glucose 71 L (74-99) mg/dL POC Glucose (mg/dL) 121 H (75-99) mg/dL Calcium 8.1 L (8.4-10.2) mg/dL Iron (65-175) ug/dL TIBC (228-460) ug/dL Ferritin (22.0-322.0) ng/mL Microbiology - Last 24 Hours (Table) 10/20/18 12:04 Blood Culture - Final Blood No Growth after 144 hours Assessment and Plan Assessment: End-stage lung disease, very severe COPD/emphysema C. difficile colitis, recurrent Nonanion gap metabolic acidosis likely secondary to intractable diarrhea Severe sepsis associated with pneumonia likely mixed bacterial and/or or gram- negative related Squamous cell lung cancer Chronic renal failure stage III Chronic CHF, diastolic Persistent atrial fibrillation Anemia, macrocytic History of lung cancer History of MN in the past ABX per ID Gentle rehydration Pulmicort to 1 mg twice a day Singulair Perforomist Continue Mucinex DuoNeb nebs to every 4 hours IV steroids Continue home medications Patient seen and examined covering for Dr. Nazario PT and OT IS and pulmonary hygiene Repeat CXR Sputum culture Monitor H/H
[2018-10-26] MEDS: SODIUM CHLORIDE 0.9% 1,000 ML IV SCH (15:31)
--- NOTE | 2018-10-26 15:32 | PN ---
PROGRESS NOTE DATE OF SERVICE: 10/26/2018. REASON FOR FOLLOWUP: C difficile colitis. INTERVAL HISTORY: The patient is currently afebrile. He is breathing comfortably, did appear to have some cough but minimal hemoptysis though. No chest pain. No abdominal pain. Still have diarrhea, though has decreased in frequency, though only 2 episodes today and slightly forming up. No nausea, no vomiting. PHYSICAL EXAMINATION: Blood pressure 107/70 with a pulse of 101, temperature 97.6. He is 95 on 3 L nasal cannula. General description is an elderly male, lying in bed in no distress. RESPIRATORY SYSTEM: Unlabored breathing with decreased breath sounds, no wheeze. HEART: S1, S2. Regular rate and rhythm. ABDOMEN: Soft, no tenderness. LABS: BUN of 16, creatinine 0.71. DIAGNOSTIC IMPRESSION AND PLAN: Patient with Clostridium difficile colitis. Patient to continue with vancomycin 250 q.6 hours. Questran will be added for symptomatic relief and toxin binding and monitor his clinical course closely. Continue supportive care. MMODL / IJN: [id number] /
[2018-10-26 16:01] LABS: Glucose,Whole Blood 165 mg/dL (75-99)
[2018-10-26] MEDS: FOLIC ACID 1 MG TAB PO SCH (17:01)
--- NOTE | 2018-10-26 18:32 | P.PN ---
Subjective Progress Note Date: 10/26/18 CHIEF COMPLAINT: History of abdominal pain HISTORY OF PRESENT ILLNESS: The patient is a 68-year-old male initially admitted with diverticulitis and subsequent acute blood loss anemia during his hospit alization. He had an upper endoscopy yesterday. Findings are completely negative for ulcers. Hemoglobin had gone back up to 10. His main concern includes dyspnea on exertion at the time of my assessment. Separately, patient has recurrent C. diff colitis currently being treated with oral vancomycin and infectious disease team is following. Patient reports his abdominal pain is much better. No reports of blood in stools. ROS: No reports of nausea and vomiting. Diarrhea improved. No fevers or chills. He is short of breath. PHYSICAL EXAM: VITAL SIGNS: Reviewed CONSTITUTIONAL: Well developed and in no acute distress. EYES: Conjuctivae without sclera icterus. Extraocular movements grossly intact. HEAD, EARS, NOSE, THROAT: Moist buccal mucosa. Head is atraumatic, normocephalic. Hears conversational speech. No nasal drainage. NECK: Supple. No thyroidomegaly. RESPIRATORY: Labor respirations and equal bilateral excursions. CARDIOVASCULAR: Palpable 2+ radial pulses. Regular rate. Regular rhythm. ABDOMEN: Soft. No peritonitis. MUSCULOSKELETAL: No gross deformity of the lower extremities noted. No cyanosis. SKIN: Good skin turgor. Well perfused. NEUROLOGIC: Cranial nerves II through XII grossly intact. No focal or lateralizing signs. PSYCH: Alert and oriented to person, place and time. CLINCAL LABS: White blood cell count normal ASSESSMENT: 1. C. diff colitis 2. History of gastric ulcers PLAN: 1. I contacted the patient's nurse with review of medications consistent with updrafts every 2 hours as needed 2. No surgical intervention required. 3. As abdominal pain resolved, will sign off Objective - Vital Signs Vital signs: Vital Signs Temp 97.6 F 10/26/18 14:41 Pulse 112 H 10/26/18 16:32 Resp 16 10/26/18 14:41 BP 107/70 10/26/18 14:41 Pulse Ox 95 10/26/18 14:41 Intake & Output 10/25/18 10/26/18 10/26/18 18:59 06:59 18:59 Intake Total 820 390 610 Output Total 1 Balance 820 390 609 Weight 70.5 kg Intake: Intake, IV Titration 70 160 Amount Sodium Chloride 0.9% 1, 70 160 000 ml @ 20 mls/hr IV . Q24H [facility] Rx#:[id number] Oral 820 320 450 Output: Stool 1 Other: Voiding Method Toilet Toilet # Voids 2 1 # Bowel Movements 2 3 - Labs CBC & Chem 7: 10/25/18 07:13 10/26/18 08:57 Labs: Abnormal Lab Results - Last 24 Hours (Table) 10/25/18 10/25/18 10/26/18 Range/Units 07:15 20:52 07:28 Chloride (98-107) mmol/L Carbon Dioxide (22-30) mmol/L Glucose (74-99) mg/dL POC Glucose (mg/dL) 115 H 107 H (75-99) mg/dL Calcium (8.4-10.2) mg/dL Iron 42 L (65-175) ug/dL TIBC 173 L (228-460) ug/dL Ferritin 574.4 H (22.0-322.0) ng/mL 10/26/18 10/26/18 10/26/18 Range/Units 08:57 11:55 15:49 Chloride 115 H (98-107) mmol/L Carbon Dioxide 17 L (22-30) mmol/L Glucose 71 L (74-99) mg/dL POC Glucose (mg/dL) 121 H 165 H (75-99) mg/dL Calcium 8.1 L (8.4-10.2) mg/dL Iron (65-175) ug/dL TIBC (228-460) ug/dL Ferritin (22.0-322.0) ng/mL Microbiology - Last 24 Hours (Table) 10/20/18 12:04 Blood Culture - Final Blood No Growth after 144 hours Assessment and Plan (1) History of partial colectomy Current Visit: Yes Status: Acute Code(s): Z90.49 - ACQUIRED ABSENCE OF OTHER SPECIFIED PARTS OF DIGESTIVE TRACT SNOMED Code(s): 426929583 (2) Stage 2 chronic kidney disease due to benign hypertension Current Visit: Yes Status: Acute Code(s): I12.9 - HYPERTENSIVE CHRONIC KIDNEY DISEASE W STG 1-4/UNSP CHR KDNY; N18.2 - CHRONIC KIDNEY DISEASE, STAGE 2 (MILD) SNOMED Code(s): 039906828455556 (3) COPD (chronic obstructive pulmonary disease) Current Visit: Yes Status: Acute Code(s): J44.9 - CHRONIC OBSTRUCTIVE PULMONARY DISEASE, UNSPECIFIED SNOMED Code(s): 11499294 (4) Diverticulitis Current Visit: Yes Status: Acute Code(s): K57.92 - DVTRCLI OF INTEST, PART UNSP, W/O PERF OR ABSCESS W/O BLEED SNOMED Code(s): 064138307 (5) At risk for readmission to hospital Current Visit: No Status: Acute Code(s): Z91.89 - OTH PERSONAL RISK FACTORS, NOT ELSEWHERE CLASSIFIED SNOMED Code(s): 8993660090885 (6) Atrial fibrillation Current Visit: No Status: Acute Code(s): I48.91 - UNSPECIFIED ATRIAL FIBRILLATION SNOMED Code(s): 65387968 (7) Bilateral pneumonia Current Visit: No Status: Acute Code(s): J18.9 - PNEUMONIA, UNSPECIFIED ORGANISM SNOMED Code(s): 397864104 (8) History of colon cancer Current Visit: No Status: Acute Code(s): Z85.038 - PERSONAL HISTORY OF MALIGNANT NEOPLASM OF LARGE INTESTINE SNOMED Code(s): 102676464 (9) Gastric ulcer Current Visit: Yes Status: Acute Code(s): K25.9 - GASTRIC ULCER, UNSP ACUTE OR CHRONIC, W/O HEMOR OR PERF SNOMED Code(s): 038738548 (10) C. difficile colitis Current Visit: Yes Status: Acute Code(s): A04.72 - ENTEROCOLITIS D/T CLOSTRIDIUM DIFFICILE, NOT SPCF RECUR SNOMED Code(s): 429934442
[2018-10-26 21:03] LABS: Glucose,Whole Blood 109 mg/dL (75-99)
[2018-10-27] MEDS: INSULIN ASPART (NovoLOG) 100 UNIT/ML VIAL SQ SCH ×5 (00:11→21:54)
[2018-10-27] MEDS: carBAMazepine 200 MG TAB PO SCH ×3 (00:14→21:54)
[2018-10-27] MEDS: guaiFENesin 600 MG TABLET.ER PO SCH ×3 (00:14→21:54)
[2018-10-27] MEDS ORDERED: methylPREDNISolone SOD SUCCI 40 MG/ML 1 ML VIAL IV STA (01:13)
[2018-10-27] MEDS: methylPREDNISolone SOD SUCCI 40 MG/ML 1 ML VIAL IV SCH (01:30)
[2018-10-27] MEDS: VANCOMYCIN ORAL SOLUTION 250 MG/5 ML BOTTLE PO SCH ×4 (01:33→17:25)
[2018-10-27] MEDS: IPRATROPIUM-ALBUTEROL 3 ML NEB INHALATION SCH ×6 (03:30→23:21)
[2018-10-27] MEDS ORDERED: FUROSEMIDE 10 MG/ML 4 ML VIAL ONE (03:47)
--- NOTE | 2018-10-27 04:08 | XR ---
EXAM: XR Chest, 1 View CLINICAL HISTORY: shortness of breath TECHNIQUE: Frontal view of the chest. COMPARISON: No relevant prior studies available. FINDINGS: Lungs: Persistent diffuse bilateral pulmonary parenchymal opacities appear somewhat increased as compared to prior exam. Similar left suprahilar and lower lung opacities. Pleural space: Small bilateral pleural effusions. No pneumothorax. Heart: Stable cardiomediastinal silhouette. Mediastinum: See above. Bones/joints: No acute osseous abnormality. Tubes, lines and devices: Telemetry leads overlie the patient. Upper abdomen: Persistent elevation of the right hemidiaphragm. IMPRESSION: Worsening bilateral opacities may be related to pulmonary edema or an infectious or inflammatory process. Small bilateral pleural effusions. No pneumothorax.
[2018-10-27 07:22] LABS: Anisocytosis Marked; HCT 27.8 % (39.0-53.0); HGB 8.2 gm/dL (13.0-17.5); Hypochromasia Marked; MCH 30.2 pg (25.0-35.0); MCHC 29.6 g/dL (31.0-37.0); MCV 102.1 fL (80.0-100.0); Macrocytosis Marked; Mean Platelet Volume 9.5; Platelet Count 256 k/uL (150-450); Poikilocytosis Moderate; RBC 2.72 m/uL (4.30-5.90)
[2018-10-27 07:23] LABS: Glucose,Whole Blood 125 mg/dL (75-99)
[2018-10-27] MEDS: BUDESONIDE 1 MG/2 ML NEBU INHALATION SCH ×2 (07:35→19:07)
[2018-10-27] MEDS: FORMOTEROL FUMARATE 20 MCG/2 ML NEBU INHALATION SCH ×2 (07:35→19:07)
[2018-10-27 07:36] LABS: Anion Gap 8 mmol/L; Blood Urea Nitrogen 15 mg/dL (9-20); Calcium 8.7 mg/dL (8.4-10.2); Carbon Dioxide 21 mmol/L (22-30); Chloride 111 mmol/L (98-107); Glucose 113 mg/dL (74-99); Potassium 4.6 mmol/L (3.5-5.1); RDW 26.4 % (11.5-15.5); Sodium 140 mmol/L (137-145)
[2018-10-27] MEDS: LACTOBACILLUS ACIDOPH & BULGAR 1 EACH PACKET PO SCH (08:47)
[2018-10-27 08:48] LABS: Lymphocytes # (M) 0.55 k/uL (1.0-4.8); Monocytes # (M) 0.66 k/uL (0-1.0); Myelocytes # (M) 0.11 k/uL (0); Myelocytes % 1 %; Neutrophils # (M) 9.79 k/uL (1.3-7.7); Neutrophils % (M) 89 %; Nucleated Red Blood Cells 0 /100 WBC (0-0); RBC Fragments Present; Total Cells Counted 200
[2018-10-27 08:49] LABS: Polychromasia Present
[2018-10-27] MEDS: DIVALPROEX 500 MG TABLET.DR PO SCH ×2 (09:03→17:25)
[2018-10-27] MEDS: ISOSORBIDE MONONITRATE ER 30 MG TAB.ER.24H PO SCH (09:03)
[2018-10-27] MEDS: ASPIRIN 81 MG PO SCH (09:03)
[2018-10-27] MEDS: POTASSIUM CHLORIDE ER 20 MEQ TAB.ER PO SCH (09:03)
[2018-10-27] MEDS: MAGNESIUM OXIDE 400 MG TAB PO SCH (09:03)
[2018-10-27] MEDS: MONTELUKAST 10 MG TAB PO SCH (09:04)
[2018-10-27] MEDS: METOPROLOL SUCCINATE (ER) 25 MG TAB.ER.24H PO SCH (09:04)
[2018-10-27] MEDS: PARoxetine 10 MG TAB PO SCH (09:04)
[2018-10-27] MEDS: LEVOTHYROXINE 50 MCG TAB PO SCH (09:04)
[2018-10-27] MEDS: TAMSULOSIN 0.4 MG CAP.ER.24H PO SCH (09:04)
[2018-10-27] MEDS: predniSONE 20 MG TAB PO SCH (09:04)
[2018-10-27] MEDS: FAMOTIDINE 20 MG TAB PO SCH ×2 (09:06→17:25)
[2018-10-27 09:58] LABS: Glucose,Whole Blood 150 mg/dL (75-99)
[2018-10-27 11:56] LABS: Glucose,Whole Blood 102 mg/dL (75-99)
--- NOTE | 2018-10-27 12:01 | PN ---
PROGRESS NOTE DATE OF SERVICE: 10/26/2018 PRESENTING COMPLAINT: Abdominal pain, diarrhea. INTERVAL HISTORY: Patient presented with pneumonia, COPD exacerbation an acute C difficile colitis. Had about 6 bowel movements yesterday. The patient is on a clear liquid. Still having some abdominal pain. Some blood tinged sputum. Lying in bed. Did sit up in a chair. REVIEW OF SYSTEMS: Done for constitutional, cardiovascular, GI, pulmonary; relevant findings as above. CURRENT MEDICATIONS: Current medications are reviewed that include DuoNeb, IV Solu-Medrol, p.o. vancomycin. PHYSICAL EXAMINATION: On examination, temperature 97.6, pulse 101, respirations 16, blood pressure 107/70, pulse ox 95% on 3 L. GENERAL APPEARANCE: Lying in bed, awake. EYES: Pupils equal. Conjunctivae normal. NECK: JVD not raised. Mass not palpable. RESPIRATORY: Effort increased. LUNGS: Decreased breath sounds. CARDIOVASCULAR: First and second sounds normal. No edema. ABDOMEN: Some lower abdominal tenderness. No guarding or rigidity. Liver and spleen not palpable. PSYCHIATRY: Alert and oriented x3. Mood and affect normal. INVESTIGATIONS: Potassium 4. BUN 16, creatinine 0.71. Accu-Cheks are noted. Bicarb 17. ASSESSMENT: 1. Right lower lobe pneumonia with clinical improvement. 2. Acute severe chronic obstructive pulmonary disease exacerbation in an ex-smoker, improving. 3. Acute Clostridium difficile colitis, diverticulitis unlikely. 4. Persistent atrial fibrillation, rate controlled. 5. History of squamous cell lung cancer with left upper lobe mass resection. 6. Chronic congestive heart failure from diastolic dysfunction. Ejection fraction 50% to 55%. 7. Patient not a candidate for anticoagulation with prior bleeding. 8. Coronary artery disease prior history of myocardial infarction. 9. Gastroesophageal reflux disease. 10.Essential hypertension. 11.Hyperlipidemia. 12.Chronic seizure disorder. 13.Esophagitis and gastritis per EGD. PLAN: Continue current medication and treatment plan. In view of the C difficile colitis, we will cut back on the steroids to 30 mg. Breathing is better. May have to add Questran if diarrhea does not get better by tomorrow. MMODL / IJN: [id number] /
--- NOTE | 2018-10-27 12:23 | P.PN ---
Subjective 68-year-old male is being treated for C. diff colitis. Patient went into respiratory distress last night appears to have pulmonary edema received Lasix significant improvement in his respiratory status and good urine output. Patient had normal ejection fraction patient may have diastolic dysfunction. Patient is presently include Suboxone does have history of COPD. Constitutional: Denied any fatigue denied any fever. Cardio vascular: denied any chest pain, palpitations Gastrointestinal denied any nausea vomiting Pulmonary: Denied any shortness of breath cough Neurologic denied any new focal deficits All inpatient medications were reviewed and appropriate changes in these medications as dictated in the interval history and assessment and plan. Objective - Vital Signs Vital signs: Vital Signs Temp 98.0 F 10/27/18 07:08 Pulse 100 10/27/18 11:22 Resp 22 10/27/18 07:08 BP 119/76 10/27/18 07:08 Pulse Ox 93 L 10/27/18 07:08 Intake & Output 10/26/18 10/27/18 10/27/18 18:59 06:59 18:59 Intake Total 610 240 Output Total 1 400 Balance 609 -400 240 Weight 70.5 kg Intake: Intake, IV Titration 160 Amount Sodium Chloride 0.9% 1, 160 000 ml @ 20 mls/hr IV . Q24H [facility] Rx#:[id number] Oral 450 240 Output: Urine 400 Stool 1 Other: Voiding Method Toilet # Voids 2 - Exam PHYSICAL EXAMINATION: GENERAL: The patient is alert and oriented x3, not in any acute distress. Well developed, well nourished. HEENT: Pupils are round and equally reacting to light. EOMI. No scleral icterus. No conjunctival pallor. Normocephalic, atraumatic. No pharyngeal erythema. No thyromegaly. CARDIOVASCULAR: S1 and S2 present. No murmurs, rubs, or gallops. PULMONARY: Chest is clear to auscultation, no wheezing or crackles. ABDOMEN: Soft, nontender, nondistended, normoactive bowel sounds. No palpable organomegaly. MUSCULOSKELETAL: No joint swelling or deformity. EXTREMITIES: No cyanosis, clubbing, or pedal edema. NEUROLOGICAL: Gross neurological examination did not reveal any focal deficits. SKIN: No rashes. - Labs CBC & Chem 7: 10/27/18 06:49 10/27/18 06:49 Labs: Abnormal Lab Results - Last 24 Hours (Table) 10/26/18 10/26/18 10/27/18 Range/Units 15:49 20:47 06:49 WBC (3.8-10.6) k/uL RBC (4.30-5.90) m/uL Hgb (13.0-17.5) gm/dL Hct (39.0-53.0) % MCV (80.0-100.0) fL MCHC (31.0-37.0) g/dL RDW (11.5-15.5) % Neutrophils # (Manual) (1.3-7.7) k/uL Lymphocytes # (Manual) (1.0-4.8) k/uL Myelocytes # (Manual) (0) k/uL Macrocytosis Chloride 111 H (98-107) mmol/L Carbon Dioxide 21 L (22-30) mmol/L Glucose 113 H (74-99) mg/dL POC Glucose (mg/dL) 165 H 109 H (75-99) mg/dL 10/27/18 10/27/18 10/27/18 Range/Units 06:49 07:00 09:43 WBC 11.0 H (3.8-10.6) k/uL RBC 2.72 L (4.30-5.90) m/uL Hgb 8.2 L (13.0-17.5) gm/dL Hct 27.8 L (39.0-53.0) % MCV 102.1 H (80.0-100.0) fL MCHC 29.6 L (31.0-37.0) g/dL RDW 26.4 H (11.5-15.5) % Neutrophils # (Manual) 9.79 H (1.3-7.7) k/uL Lymphocytes # (Manual) 0.55 L (1.0-4.8) k/uL Myelocytes # (Manual) 0.11 H (0) k/uL Macrocytosis Marked A Chloride (98-107) mmol/L Carbon Dioxide (22-30) mmol/L Glucose (74-99) mg/dL POC Glucose (mg/dL) 125 H 150 H (75-99) mg/dL 10/27/18 Range/Units 11:33 WBC (3.8-10.6) k/uL RBC (4.30-5.90) m/uL Hgb (13.0-17.5) gm/dL Hct (39.0-53.0) % MCV (80.0-100.0) fL MCHC (31.0-37.0) g/dL RDW (11.5-15.5) % Neutrophils # (Manual) (1.3-7.7) k/uL Lymphocytes # (Manual) (1.0-4.8) k/uL Myelocytes # (Manual) (0) k/uL Macrocytosis Chloride (98-107) mmol/L Carbon Dioxide (22-30) mmol/L Glucose (74-99) mg/dL POC Glucose (mg/dL) 102 H (75-99) mg/dL Microbiology - Last 24 Hours (Table) 10/20/18 12:04 Blood Culture - Final Blood No Growth after 144 hours Assessment and Plan Plan: -Acute hypoxic respiratory failure secondary to pulmonary edema heart failure exacerbation chronic diastolic dysfunction with acute exacerbation -COPD and patient is being treated for exacerbation of COPD as well. -C. diff colitis: Diarrhea improved continue with toe by mouth vancomycin -Persistent A. fib presently rate controlled continue with metoprolol and patient is not in any anticoagulation because of his multiple GI bleeds in the past Heparin coronary artery disease -Gases patient reflux disease -Essential hypertension -Hyperlipidemia -Seizure disorder The rest of his chronic stable with the problems patient will be continued on present medications
--- NOTE | 2018-10-27 12:33 | P.CRDCN ---
History of Present Illness Consult date: 10/27/18 History of present illness: This is a 68-year-old gentleman who we are requested to see today for further evaluation of atrial fibrillation. The patient has been in the hospital now for 7 days. Initially the patient was presented to the hospital with symptoms consistent with C. diff colitis and diverticulitis. He is known to have chronic obstructive pulmonary disease and he used to smoke in the past. Beside that he does have history of chronic atrial fibrillation and for some reason he is not on any oral anticoagulation. The reason he is not on any anticoagulation because of history of GI bleeding. The patient somewhat is a poor historian. This drawer in hand, the A team was called to see the patient because he developed respiratory distress. Subsequently a chest x-ray was performed and showed findings consistent with CHF and bilateral pleural effusion. Currently the patient is feeling better. He stated that the shortness of breath has improved. No symptoms of chest pain or chest discomfort. Hemodynamically he is in atrial fibrillation was controlled heart rate and currently he is on metoprolol. He underwent an echocardiogram and that revealed normal LV function without significant valvular abnormalities. The echocardiogram was performed in 2017. Past Medical History Past Medical History: Atrial Fibrillation, Cancer, Chest Pain / Angina, COPD, CVA/TIA, GERD/Reflux, GI Bleed, Hyperlipidemia, Hypertension, Myocardial Infarction ([place]), Musculoskeletal Disorder, Renal Disease, Seizure Disorder Additional Past Medical History / Comment(s): colonoscopy then laparoscopic si gmoid colectomy for adenocarcinoma was performed on 07/19/14. Other HX: colon cancer found during colonoscopy-polyp which was adenocarcinoma, SQUAMOUS CELL CARCINOMA LT UPPER LOBE. ULCER; EPILEPTIC - STATES LAST SEIZURE PREV TO 1994; CVA - AFFECTS SPEECH/able to print but not write in cursive. UNABLE TO COMPLETELY CLOSE LEFT HAND R/T hx of LARGE LACERATION. HX OF RT HIP DISORDER, WORE CAST, THEN BRACE FOR 2 YRS, chronic low back pain, renal cysts and kidney stones, GI bleed associated with anticoaulation. Has home O2 which he uses when necessary Last Myocardial Infarction Date:: patient reports 19 years ago History of Any Multi-Drug Resistant Organisms: None Reported, C-DIFF Date of last positivie culture/infection: 10/23/18 MDRO Source:: stool Past Surgical History: Orthopedic Surgery Additional Past Surgical History / Comment(s): 07/19/14 Laparoscopic sigmoid colectomy. LEFT HAND SX, EXC VILMA CATARACTS; COLONOSCOPY 05/26/14.BRONCH/BX- PNUEMOTHORAX/CHEST TUBE /WEDGE RESECTION TUMOR LT UPPER LOBE. Past Anesthesia/Blood Transfusion Reactions: No Reported Reaction Past Psychological History: No Psychological Hx Reported Additional Psychological History / Comment(s): PT HAS BEEN A [place] SINCE DISCHARGE FROM [facility] IN [facility] [place]. STATED HE USES A CANE AND 1 TO ASSIST. O2 WHEN NEEDED. Smoking Status: Former smoker Past Alcohol Use History: None Reported Additional Past Alcohol Use History / Comment(s): STARTED SMOKING AT AGE 12 SMOKED 4 PPD. QUIT 2006 Past Drug Use History: None Reported - Past Family History Father Family Medical History: CVA/TIA Mother Family Medical History: Cancer Medications and Allergies Home Medications Medication Instructions Recorded Confirmed Type Budesonide-Formot 160-4.5 Mcg 2 puff INHALATION RT-BID 05/22/14 10/20/18 History [Symbicort 160-4.5 Mcg Inhaler] Divalproex [Depakote] 1,000 mg PO BID@0800,1700 05/22/14 10/20/18 History Ipratropium-Albuterol Nebulize 3 ml IH RT-QID neb 03/22/17 10/20/18 Rx [Duoneb 0.5 mg-3 mg/3 ml Soln] Metoprolol Succinate (ER) [Toprol 25 mg PO DAILY tab 03/22/17 10/20/18 Rx XL] PARoxetine [Paxil] 10 mg PO DAILY tab 03/22/17 10/20/18 Rx Bisacodyl [Dulcolax] 10 mg RECTAL DAILY PRN 04/03/17 10/20/18 History Calcium Carbonate [Tums] 500 mg PO Q8H PRN 04/03/17 10/20/18 History Magnesium Hydroxide [Milk of 2,400 mg PO DAILY PRN 04/03/17 10/20/18 History Magnesia] Tamsulosin [Flomax] 0.4 mg PO QAM 04/03/17 10/20/18 History Aspirin 81 mg PO DAILY chew 04/05/17 10/20/18 Rx Nitroglycerin Sl Tabs [Nitrostat] 0.4 mg SUBLINGUAL Q5M PRN #20 tab 04/05/17 10/20/18 Rx Acetaminophen [Tylenol] 650 mg PO Q6H PRN 10/20/18 10/20/18 History Ferrous Sulfate [Feosol] 325 mg PO DAILY 10/20/18 10/20/18 History Folic Acid 1 mg PO DAILY@1700 10/20/18 10/20/18 History Furosemide [Lasix] 40 mg PO DAILY 10/20/18 10/20/18 History Gabapentin [Neurontin] 100 mg PO DAILY PRN 10/20/18 10/20/18 History Isosorbide Mononitrate ER [Imdur] 30 mg PO DAILY@0800 10/20/18 10/20/18 History L.acidoph,Paracasei, B.lactis 1 cap PO DAILY 10/20/18 10/20/18 History [Probiotic] Levalbuterol Nebulized [Xopenex 1.25 mg INHALATION RT-Q8H 10/20/18 10/20/18 History Nebulized] Levothyroxine Sodium [Synthroid] 50 mcg PO DAILY@0600 10/20/18 10/20/18 History Magnesium Oxide 400 mg PO DAILY 10/20/18 10/20/18 History Montelukast [Singulair] 10 mg PO DAILY 10/20/18 10/20/18 History Na Phos,M-B/Na Phos,Di-Ba [Fleet 133 ml RECTAL DAILY PRN 10/20/18 10/20/18 History Adult] Potassium Chloride ER [K-Dur 20] 20 meq PO DAILY 10/20/18 10/20/18 History Ranitidine HCl 150 mg PO BID@0800,1700 10/20/18 10/20/18 History carBAMazepine [TEGretol] 200 mg PO BID 10/20/18 10/20/18 History predniSONE See Taper PO DIRECTED 10/20/18 10/20/18 History Allergies Allergy/AdvReac Type Severity Reaction Status Date / Time phenobarbital Allergy Unknown Hallucinati Verified 10/20/18 16:23 ons Influenza Virus Vaccines Allergy Unknown Verified 10/20/18 16:23 Physical Exam Vitals: Vital Signs Temp Pulse Pulse Resp BP Pulse Ox 10/27/18 11:22 100 10/27/18 11:14 100 10/27/18 08:04 108 H 10/27/18 07:45 112 H 10/27/18 07:38 108 H 10/27/18 07:08 98.0 F 107 H 22 119/76 93 L 10/27/18 03:40 124 H 10/27/18 03:30 120 H 10/27/18 02:50 97.6 F 106 H 24 125/66 92 L 10/26/18 20:00 97.4 F L 99 22 130/77 95 10/26/18 18:53 116 H 10/26/18 18:47 116 H 10/26/18 18:44 112 H 10/26/18 18:37 112 H 10/26/18 16:32 112 H 10/26/18 16:20 115 H 10/26/18 16:00 101 H 10/26/18 14:41 97.6 F 101 H 16 107/70 95 10/26/18 12:46 112 H 10/26/18 12:34 112 H Intake and Output 10/26/18 10/27/18 10/27/18 22:59 06:59 14:59 Intake Total 240 Output Total 400 Balance -400 240 Intake: Oral 240 Output: Urine 400 Other: # Voids 1 2 - Constitutional General appearance: no acute distress - Respiratory Respiratory: bilateral: rales - Cardiovascular Rhythm: irregularly irregular Results 10/27/18 06:49 10/27/18 06:49 CBC 10/27/18 Range/Units 06:49 WBC 11.0 H (3.8-10.6) k/uL RBC 2.72 L (4.30-5.90) m/uL Hgb 8.2 L (13.0-17.5) gm/dL Hct 27.8 L (39.0-53.0) % Plt Count 256 (150-450) k/uL Comprehensive Metabolic Panel 10/27/18 Range/Units 06:49 Sodium 140 (137-145) mmol/L Potassium 4.6 (3.5-5.1) mmol/L Chloride 111 H (98-107) mmol/L Carbon Dioxide 21 L (22-30) mmol/L BUN 15 (9-20) mg/dL Creatinine 0.85 (0.66-1.25) mg/dL Glucose 113 H (74-99) mg/dL Calcium 8.7 (8.4-10.2) mg/dL Current Medications Generic Name Dose Route Start Last Admin Trade Name Freq PRN Reason Stop Dose Admin Acetaminophen 650 mg 10/20/18 15:02 10/21/18 06:05 Tylenol Tab PO 650 mg Q6HR PRN Administration Mild Pain or Fever > 100.5 Albuterol/Ipratropium 3 ml 10/21/18 14:50 10/27/18 11:11 Duoneb 0.5 Mg-3 Mg/3 Ml Soln INHALATION 3 ml RT-Q4H [facility] Administration Aspirin 81 mg 10/21/18 09:00 10/27/18 09:03 Aspirin PO 81 mg DAILY [facility] Administration Budesonide 1 mg 10/21/18 06:45 10/27/18 07:35 Pulmicort INHALATION 1 mg RT-BID [facility] Administration Calcium Carbonate/Glycine 500 mg 10/20/18 17:58 Tums PO Q8H PRN UPSET STOMACH Carbamazepine 200 mg 10/20/18 21:00 10/27/18 09:04 Tegretol PO 200 mg BID [facility] Administration Divalproex Sodium 1,000 mg 10/21/18 08:00 10/27/18 09:03 Depakote PO 1,000 mg BID@0800,1700 [facility] Administration Famotidine 20 mg 10/21/18 08:00 10/27/18 09:06 Pepcid PO 20 mg BID@0800,1700 [facility] Administration Folic Acid 1 mg 10/21/18 17:00 10/26/18 17:01 Folic Acid PO 1 mg DAILY@1700 [facility] Administration Formoterol Fumarate 20 mcg 10/21/18 20:00 10/27/18 07:35 Perforomist INHALATION 20 mcg RT-BID [facility] Administration Gabapentin 100 mg 10/20/18 17:58 10/24/18 15:03 Neurontin PO 100 mg DAILY PRN Administration Spasms Guaifenesin 1,200 mg 10/21/18 15:00 10/27/18 09:03 Mucinex PO 1,200 mg Q12HR [facility] Administration Sodium Chloride 1,000 mls @ 20 mls/hr 10/21/18 15:00 10/26/18 15:31 Saline 0.9% IV Not Given .Q24H [facility] Insulin Aspart 0 unit 10/21/18 17:30 10/27/18 08:30 Novolog SQ Not Given ACHS [facility] Protocol Isosorbide Mononitrate 30 mg 10/21/18 08:00 10/27/18 09:03 Imdur PO 30 mg DAILY@0800 [facility] Administration Lactobacillus Acidoph/Bulgaricus 1 each 10/21/18 09:00 10/27/18 08:47 Lactinex PO 1 each DAILY [facility] Administration Levothyroxine Sodium 50 mcg 10/21/18 06:30 10/27/18 09:04 Synthroid PO 50 mcg DAILY@0630 [facility] Administration Magnesium Hydroxide 2,400 mg 10/20/18 17:58 Milk Of Magnesia PO DAILY PRN Constipation Magnesium Oxide 400 mg 10/21/18 09:00 10/27/18 09:03 Mag-Ox PO 400 mg DAILY [facility] Administration Metoprolol Succinate 25 mg 10/21/18 09:00 10/27/18 09:04 Toprol Xl PO 25 mg DAILY [facility] Administration Montelukast Sodium 10 mg 10/21/18 09:00 10/27/18 09:04 Singulair PO 10 mg DAILY [facility] Administration Morphine Sulfate 4 mg 10/20/18 15:02 10/24/18 15:08 Morphine Sulfate (Inj) IV 4 mg Q4HR PRN Administration Severe Pain Naloxone HCl 0.2 mg 10/20/18 15:02 Narcan IV Q2M PRN Opioid Reversal Nitroglycerin 0.4 mg 10/20/18 17:58 Nitrostat SUBLINGUAL Q5M PRN Chest Pain Paroxetine HCl 10 mg 10/21/18 09:00 10/27/18 09:04 Paxil PO 10 mg DAILY [facility] Administration Potassium Chloride 20 meq 10/21/18 09:00 10/27/18 09:03 K-Dur 20 PO 20 meq DAILY [facility] Administration Prednisone 30 mg 10/27/18 09:00 10/27/18 09:04 PO 30 mg DAILY [facility] Administration Tamsulosin HCl 0.4 mg 10/21/18 09:00 10/27/18 09:04 Flomax PO 0.4 mg QAM [facility] Administration Vancomycin HCl 250 mg 10/25/18 00:00 10/27/18 06:17 Vancomycin Oral Solution PO 250 mg Q6HR [facility] Administration Intake and Output 10/26/18 10/27/18 10/27/18 22:59 06:59 14:59 Intake Total 240 Output Total 400 Balance -400 240 Intake: Oral 240 Output: Urine 400 Other: # Voids 1 2 10/27/18 06:49 05/11/19 06:49 Assessment and Plan Assessment: Assessment #1 C. diff colitis #2 chronic atrial fibrillation not on oral anticoagulation #3 history of GI bleeding #4 congestive heart failure exacerbation, likely related to diastolic dysfunction #5 multiple comorbid conditions Plan #1 I would repeat the echocardiogram #2 check the BNP #3 on exam he does have bilateral crackles and I would agree with the Lasix IV #4 follow-up with the patient
--- NOTE | 2018-10-27 12:33 | P.PN ---
Subjective Progress Note Date: 10/27/18 10/27/2017: Patient seen and examined sitting up in the chair. An A-team was called overnight due to patient's worsening respiratory status. A chest x-ray was obtained and the patient was given Lasix. He states he feels much better now. The patient did wear bipap over night as well. Objective - Vital Signs Vital signs: Vital Signs Temp 98.0 F 10/27/18 07:08 Pulse 100 10/27/18 11:22 Resp 22 10/27/18 07:08 BP 119/76 10/27/18 07:08 Pulse Ox 93 L 10/27/18 07:08 Intake & Output 10/26/18 10/27/18 10/27/18 18:59 06:59 18:59 Intake Total 610 240 Output Total 1 400 Balance 609 -400 240 Weight 70.5 kg Intake: Intake, IV Titration 160 Amount Sodium Chloride 0.9% 1, 160 000 ml @ 20 mls/hr IV . Q24H [facility] Rx#:[id number] Oral 450 240 Output: Urine 400 Stool 1 Other: Voiding Method Toilet # Voids 2 - Exam Gen.: Patient is alert and oriented 3, no acute distress Cardiovascular: Regular rate and rhythm, S1/S2 Lungs: Diminished breath sounds bilaterally with scattered expiratory wheezing Abdomen: Soft nontender nondistended positive bowel sounds Extremities: Trace edema - Labs CBC & Chem 7: 10/27/18 06:49 10/27/18 06:49 Labs: Abnormal Lab Results - Last 24 Hours (Table) 10/26/18 10/26/18 10/27/18 Range/Units 15:49 20:47 06:49 WBC (3.8-10.6) k/uL RBC (4.30-5.90) m/uL Hgb (13.0-17.5) gm/dL Hct (39.0-53.0) % MCV (80.0-100.0) fL MCHC (31.0-37.0) g/dL RDW (11.5-15.5) % Neutrophils # (Manual) (1.3-7.7) k/uL Lymphocytes # (Manual) (1.0-4.8) k/uL Myelocytes # (Manual) (0) k/uL Macrocytosis Chloride 111 H (98-107) mmol/L Carbon Dioxide 21 L (22-30) mmol/L Glucose 113 H (74-99) mg/dL POC Glucose (mg/dL) 165 H 109 H (75-99) mg/dL 10/27/18 10/27/18 10/27/18 Range/Units 06:49 07:00 09:43 WBC 11.0 H (3.8-10.6) k/uL RBC 2.72 L (4.30-5.90) m/uL Hgb 8.2 L (13.0-17.5) gm/dL Hct 27.8 L (39.0-53.0) % MCV 102.1 H (80.0-100.0) fL MCHC 29.6 L (31.0-37.0) g/dL RDW 26.4 H (11.5-15.5) % Neutrophils # (Manual) 9.79 H (1.3-7.7) k/uL Lymphocytes # (Manual) 0.55 L (1.0-4.8) k/uL Myelocytes # (Manual) 0.11 H (0) k/uL Macrocytosis Marked A Chloride (98-107) mmol/L Carbon Dioxide (22-30) mmol/L Glucose (74-99) mg/dL POC Glucose (mg/dL) 125 H 150 H (75-99) mg/dL 10/27/18 Range/Units 11:33 WBC (3.8-10.6) k/uL RBC (4.30-5.90) m/uL Hgb (13.0-17.5) gm/dL Hct (39.0-53.0) % MCV (80.0-100.0) fL MCHC (31.0-37.0) g/dL RDW (11.5-15.5) % Neutrophils # (Manual) (1.3-7.7) k/uL Lymphocytes # (Manual) (1.0-4.8) k/uL Myelocytes # (Manual) (0) k/uL Macrocytosis Chloride (98-107) mmol/L Carbon Dioxide (22-30) mmol/L Glucose (74-99) mg/dL POC Glucose (mg/dL) 102 H (75-99) mg/dL Microbiology - Last 24 Hours (Table) 10/20/18 12:04 Blood Culture - Final Blood No Growth after 144 hours Assessment and Plan Assessment: End-stage lung disease, very severe COPD/emphysema C. difficile colitis, recurrent Nonanion gap metabolic acidosis likely secondary to intractable diarrhea Severe sepsis associated with pneumonia likely mixed bacterial and/or or gram- negative related Squamous cell lung cancer Chronic renal failure stage III Chronic CHF, diastolic Persistent atrial fibrillation Anemia, macrocytic History of lung cancer History of CT in the past ABX per ID Gentle rehydration Pulmicort 1 mg twice a day Singulair Perforomist Continue Mucinex DuoNeb nebs to every 4 hours IV steroid taper Continue home medications Patient seen and examined covering for Dr. Nazario PT and OT IS and pulmonary hygiene CXR reviewed Sputum culture Monitor H/H Lasix 20 mg IV Q12 hours x 2 doses
[2018-10-27] MEDS: SODIUM CHLORIDE 0.9% 1,000 ML IV SCH (14:19)
[2018-10-27 17:12] LABS: Glucose,Whole Blood 137 mg/dL (75-99)
[2018-10-27] MEDS: FOLIC ACID 1 MG TAB PO SCH (17:25)
--- NOTE | 2018-10-27 20:49 | PN ---
PROGRESS NOTE DATE OF SERVICE: 10/27/2018. REASON FOR FOLLOWUP: C difficile colitis. INTERVAL HISTORY: The patient is currently afebrile. Patient is breathing comfortably. Denies significant chest pain. Very minimal cough. Not bringing up any sputum. No nausea, vomiting. No abdominal pain. The patient's diarrhea has resolved. No bowel movement today. PHYSICAL EXAMINATION: Blood pressure 100/74 with a pulse of 95. Temperature 97.3. He is 95% on 3 L nasal cannula. General description is an elderly male up in the chair in no distress. Respiratory system: Unlabored breathing. Clear to auscultation anteriorly. Heart S1, S2. Regular rate and rhythm. Abdomen soft. No tenderness. LABS: Hemoglobin 8.8, white count [id number] with a BUN of 15, creatinine 0.85. Blood and urine cultures have been negative. DIAGNOSTIC IMPRESSION AND PLAN: Patient with acute C difficile colitis. The patient is currently covered with oral vancomycin to continue. Hold Questran. Monitor clinical course closely. Continue supportive care. Advised to increase his probiotic intake. MMODL / IJN: [id number] /
[2018-10-27 21:24] LABS: Glucose,Whole Blood 157 mg/dL (75-99)
[2018-10-27] MEDS: FUROSEMIDE 10 MG/ML 2 ML VIAL IV SCH (21:54)
[2018-10-28] MEDS: VANCOMYCIN ORAL SOLUTION 250 MG/5 ML BOTTLE PO SCH ×5 (00:47→23:14)
[2018-10-28] MEDS: IPRATROPIUM-ALBUTEROL 3 ML NEB INHALATION SCH ×6 (03:25→23:45)
[2018-10-28 07:11] LABS: Glucose,Whole Blood 88 mg/dL (75-99)
[2018-10-28 07:19] LABS: Anisocytosis Marked; HCT 25.4 % (39.0-53.0); HGB 7.5 gm/dL (13.0-17.5); Hypochromasia Marked; MCH 29.7 pg (25.0-35.0); MCHC 29.7 g/dL (31.0-37.0); MCV 99.9 fL (80.0-100.0); Macrocytosis Marked; Mean Platelet Volume 8.6; Microcytosis Slight; Platelet Count 241 k/uL (150-450); Poikilocytosis Slight; RBC 2.54 m/uL (4.30-5.90); RDW 26.6 % (11.5-15.5); WBC 6.8 k/uL (3.8-10.6)
[2018-10-28 07:43] LABS: Anion Gap 5 mmol/L; Blood Urea Nitrogen 15 mg/dL (9-20); Calcium 8.5 mg/dL (8.4-10.2); Carbon Dioxide 23 mmol/L (22-30); Chloride 112 mmol/L (98-107); Glucose 76 mg/dL (74-99); Potassium 4.3 mmol/L (3.5-5.1); Sodium 140 mmol/L (137-145)
--- NOTE | 2018-10-28 08:14 | ECHOF ---
Referral Reason:chf MEASUREMENTS -------- HEIGHT: 180.3 cm WEIGHT: 70.3 kg BP: MV E Lee: 0.90 m/s MV DecT: 151 ms MV A Lee: 0.30 m/s MV E/A Ratio: 2.98 FINDINGS -------- Atrial fibrillation. This was a technically difficult study with suboptimal views. Limited Study Study was technically difficult with lumason use. Can not estimate EF. The RV was not well visualized. The left atrium was not well visualized. The right atrium was not well visualized. xx ml of Lumason was utilized for enhancement of images. The aortic valve was not well visualized. The mitral valve was not well visualized. The tricuspid valve was not well visualized. The pulmonic valve was not well visualized. CONCLUSIONS -------- 1. Atrial fibrillation. 2. This was a technically difficult study with suboptimal views. 3. Limited Study 4. Study was technically difficult with lumason use. Can not estimate EF. 5. The RV was not well visualized. 6. The left atrium was not well visualized. 7. The right atrium was not well visualized. 8. xx ml of Lumason was utilized for enhancement of images. 9. The aortic valve was not well visualized. 10. The mitral valve was not well visualized. 11. The tricuspid valve was not well visualized. 12. The pulmonic valve was not well visualized. SENIOR NET SOFTWARE ENGINEER: Dennise Adkins DR[facility]
[2018-10-28] MEDS: LACTOBACILLUS ACIDOPH & BULGAR 1 EACH PACKET PO SCH (08:42)
[2018-10-28] MEDS: LEVOTHYROXINE 50 MCG TAB PO SCH (08:42)
[2018-10-28] MEDS: predniSONE 20 MG TAB PO SCH (08:42)
[2018-10-28] MEDS: MAGNESIUM OXIDE 400 MG TAB PO SCH (08:42)
[2018-10-28] MEDS: METOPROLOL SUCCINATE (ER) 25 MG TAB.ER.24H PO SCH (08:43)
[2018-10-28] MEDS: PARoxetine 10 MG TAB PO SCH (08:43)
[2018-10-28] MEDS: guaiFENesin 600 MG TABLET.ER PO SCH ×2 (08:43→21:51)
[2018-10-28] MEDS: FAMOTIDINE 20 MG TAB PO SCH ×2 (08:43→17:42)
[2018-10-28] MEDS: FUROSEMIDE 10 MG/ML 2 ML VIAL IV SCH ×2 (08:43→21:51)
[2018-10-28] MEDS: TAMSULOSIN 0.4 MG CAP.ER.24H PO SCH (08:43)
[2018-10-28] MEDS: ASPIRIN 81 MG PO SCH (08:43)
[2018-10-28] MEDS: DIVALPROEX 500 MG TABLET.DR PO SCH ×2 (08:43→17:42)
[2018-10-28] MEDS: MONTELUKAST 10 MG TAB PO SCH (08:43)
[2018-10-28] MEDS: ISOSORBIDE MONONITRATE ER 30 MG TAB.ER.24H PO SCH (08:43)
[2018-10-28] MEDS: POTASSIUM CHLORIDE ER 20 MEQ TAB.ER PO SCH (08:43)
[2018-10-28] MEDS: carBAMazepine 200 MG TAB PO SCH ×2 (08:44→21:51)
[2018-10-28] MEDS: BUDESONIDE 1 MG/2 ML NEBU INHALATION SCH ×2 (08:45→21:06)
[2018-10-28] MEDS: FORMOTEROL FUMARATE 20 MCG/2 ML NEBU INHALATION SCH ×2 (08:45→21:06)
[2018-10-28] MEDS: INSULIN ASPART (NovoLOG) 100 UNIT/ML VIAL SQ SCH ×3 (11:00→17:42)
--- NOTE | 2018-10-28 11:54 | P.PN ---
Subjective Progress Note Date: 10/28/18 Principal diagnosis: Chronic atrial fibrillation This is a 68-year-old gentleman who we are requested to see today for further evaluation of atrial fibrillation. The patient has been in the hospital now for 7 days. Initially the patient was presented to the hospital with symptoms consistent with C. diff colitis and diverticulitis. He is known to have chronic obstructive pulmonary disease and he used to smoke in the past. Beside that he does have history of chronic atrial fibrillation and for some reason he is not on any oral anticoagulation. The reason he is not on any anticoagulation because of history of GI bleeding. The patient somewhat is a poor historian. 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 Subsequently a chest x-ray was performed and showed findings consistent with CHF and bilateral pleural effusion. Currently the patient is feeling better. He stated that the shortness of breath has improved. No symptoms of chest pain or chest discomfort. Hemodynamically he is in atrial fibrillation was controlled heart rate and currently he is on metoprolol. He underwent an echocardiogram and that revealed normal LV function without significant valvular abnormalities. The echocardiogram was performed in 2017. On follow-up with the patient today, he seems to be stable from the cardiac v ascular standpoint overview, except for mild sinus tachycardia. I am going to increase the dose of Toprol-XL. Beside that no need for any further cardiac workup. We'll follow-up with him on when necessary case. Objective - Vital Signs Vital signs: Vital Signs Temp 98.1 F 10/28/18 06:57 Pulse 108 H 10/28/18 09:07 Resp 16 10/28/18 06:57 BP 112/71 10/28/18 06:57 Pulse Ox 91 L 10/28/18 06:57 Intake & Output 10/27/18 10/28/18 10/28/18 18:59 06:59 18:59 Intake Total 240 300 Output Total 1 1400 Balance 239 -1100 Intake: Intake, IV Titration 0 Amount Sodium Chloride 0.9% 1, 0 000 ml @ 20 mls/hr IV . Q24H [facility] Rx#:[id number] Oral 240 300 Output: Urine 1400 Stool 1 Other: Voiding Method Toilet Urinal # Voids 2 1 3 # Bowel Movements 1 - Constitutional General appearance: Present: no acute distress - Respiratory Respiratory: bilateral: diminished - Cardiovascular Rhythm: irregularly irregular Heart sounds: normal: S1, S2 - Labs CBC & Chem 7: 10/28/18 06:46 10/28/18 06:46 Labs: Abnormal Lab Results - Last 24 Hours (Table) 10/27/18 10/27/18 10/27/18 Range/Units 11:33 16:58 21:13 RBC (4.30-5.90) m/uL Hgb (13.0-17.5) gm/dL Hct (39.0-53.0) % MCHC (31.0-37.0) g/dL RDW (11.5-15.5) % Macrocytosis Chloride (98-107) mmol/L POC Glucose (mg/dL) 102 H 137 H 157 H (75-99) mg/dL 10/28/18 10/28/18 Range/Units 06:46 06:46 RBC 2.54 L (4.30-5.90) m/uL Hgb 7.5 L (13.0-17.5) gm/dL Hct 25.4 L (39.0-53.0) % MCHC 29.7 L (31.0-37.0) g/dL RDW 26.6 H (11.5-15.5) % Macrocytosis Marked A Chloride 112 H (98-107) mmol/L POC Glucose (mg/dL) (75-99) mg/dL Assessment and Plan Assessment: Assessment #1 C. diff colitis #2 chronic atrial fibrillation not on oral anticoagulation #3 history of GI bleeding #4 congestive heart failure exacerbation, likely related to diastolic dysfunction #5 multiple comorbid conditions Plan #1 I would repeat the echocardiogram #2 increase the dose of Toprol-XL Follow-up with the patient on when necessary case
[2018-10-28 12:10] LABS: Glucose,Whole Blood 163 mg/dL (75-99)
--- NOTE | 2018-10-28 12:10 | P.PN ---
Subjective 68-year-old male is being treated for C. diff colitis. Patient went into respiratory distress last night appears to have pulmonary edema received Lasix significant improvement in his respiratory status and good urine output. Patient had normal ejection fraction patient may have diastolic dysfunction. Patient is presently include Suboxone does have history of COPD. 10/28/2018 Respiratory status improved, will give him a 2 more doses of IV Lasix diarrhea improved. Echocardiogram is noninflammatory regarding ejection fraction Constitutional: Denied any fatigue denied any fever. Cardio vascular: denied any chest pain, palpitations Gastrointestinal denied any nausea vomiting Pulmonary: Denied any shortness of breath cough Neurologic denied any new focal deficits All inpatient medications were reviewed and appropriate changes in these m edications as dictated in the interval history and assessment and plan. Objective - Vital Signs Vital signs: Vital Signs Temp 98.1 F 10/28/18 06:57 Pulse 108 H 10/28/18 09:07 Resp 16 10/28/18 06:57 BP 112/71 10/28/18 06:57 Pulse Ox 91 L 10/28/18 06:57 Intake & Output 10/27/18 10/28/18 10/28/18 18:59 06:59 18:59 Intake Total 240 300 Output Total 1 1400 Balance 239 -1100 Intake: Intake, IV Titration 0 Amount Sodium Chloride 0.9% 1, 0 000 ml @ 20 mls/hr IV . Q24H [facility] Rx#:[id number] Oral 240 300 Output: Urine 1400 Stool 1 Other: Voiding Method Toilet Urinal # Voids 2 1 3 # Bowel Movements 1 - Exam PHYSICAL EXAMINATION: GENERAL: The patient is alert and oriented x3, not in any acute distress. Well developed, well nourished. HEENT: Pupils are round and equally reacting to light. EOMI. No scleral icterus. No conjunctival pallor. Normocephalic, atraumatic. No pharyngeal erythema. No thyromegaly. CARDIOVASCULAR: S1 and S2 present. No murmurs, rubs, or gallops. PULMONARY: Chest is clear to auscultation, no wheezing or crackles. ABDOMEN: Soft, nontender, nondistended, normoactive bowel sounds. No palpable organomegaly. MUSCULOSKELETAL: No joint swelling or deformity. EXTREMITIES: No cyanosis, clubbing, or pedal edema. NEUROLOGICAL: Gross neurological examination did not reveal any focal deficits. SKIN: No rashes. - Labs CBC & Chem 7: 10/28/18 06:46 10/28/18 06:46 Labs: Abnormal Lab Results - Last 24 Hours (Table) 10/27/18 10/27/18 10/28/18 Range/Units 16:58 21:13 06:46 RBC (4.30-5.90) m/uL Hgb (13.0-17.5) gm/dL Hct (39.0-53.0) % MCHC (31.0-37.0) g/dL RDW (11.5-15.5) % Macrocytosis Chloride 112 H (98-107) mmol/L POC Glucose (mg/dL) 137 H 157 H (75-99) mg/dL 10/28/18 Range/Units 06:46 RBC 2.54 L (4.30-5.90) m/uL Hgb 7.5 L (13.0-17.5) gm/dL Hct 25.4 L (39.0-53.0) % MCHC 29.7 L (31.0-37.0) g/dL RDW 26.6 H (11.5-15.5) % Macrocytosis Marked A Chloride (98-107) mmol/L POC Glucose (mg/dL) (75-99) mg/dL Assessment and Plan Plan: -Acute hypoxic respiratory failure secondary to pulmonary edema heart failure exacerbation chronic diastolic dysfunction with acute exacerbation, improved compared to yesterday patient is closely will hyperkalemia -COPD and patient is being treated for exacerbation of COPD as well. -C. diff colitis: Diarrhea improved continue with toe by mouth vancomycin -Persistent A. fib presently rate controlled continue with metoprolol and patient is not in any anticoagulation because of his multiple GI bleeds in the past Heparin coronary artery disease -Gases patient reflux disease -Essential hypertension -Hyperlipidemia -Seizure disorder The rest of his chronic stable with the problems patient will be continued on present medications
--- NOTE | 2018-10-28 12:15 | P.PN ---
Subjective Progress Note Date: 10/28/18 10/28/2018: Patient seen and examined laying in bed watching TV. He states he feels a little better today. He did get up to use the bathroom and says by the time he got back in to bed, he was winded. He put the bipap on "to avoid feeling anxious." Per nursing, the patient did better today with ambulation than yesterday. He says his stools are starting to form. He denies fevers and chills. Objective - Vital Signs Vital signs: Vital Signs Temp 98.1 F 10/28/18 06:57 Pulse 108 H 10/28/18 09:07 Resp 16 10/28/18 06:57 BP 112/71 10/28/18 06:57 Pulse Ox 91 L 10/28/18 06:57 Intake & Output 10/27/18 10/28/18 10/28/18 18:59 06:59 18:59 Intake Total 240 300 Output Total 1 1400 Balance 239 -1100 Intake: Intake, IV Titration 0 Amount Sodium Chloride 0.9% 1, 0 000 ml @ 20 mls/hr IV . Q24H [facility] Rx#:[id number] Oral 240 300 Output: Urine 1400 Stool 1 Other: Voiding Method Toilet Urinal # Voids 2 1 3 # Bowel Movements 1 - Exam Gen.: Patient is alert and oriented 3, no acute distress Cardiovascular: Regular rate and rhythm, S1/S2 Lungs: Diminished breath sounds bilaterally with scattered expiratory wheezing Abdomen: Soft nontender nondistended positive bowel sounds Extremities: Trace edema - Labs CBC & Chem 7: 10/28/18 06:46 10/28/18 06:46 Labs: Abnormal Lab Results - Last 24 Hours (Table) 10/27/18 10/27/18 10/28/18 Range/Units 16:58 21:13 06:46 RBC (4.30-5.90) m/uL Hgb (13.0-17.5) gm/dL Hct (39.0-53.0) % MCHC (31.0-37.0) g/dL RDW (11.5-15.5) % Macrocytosis Chloride 112 H (98-107) mmol/L POC Glucose (mg/dL) 137 H 157 H (75-99) mg/dL 10/28/18 10/28/18 Range/Units 06:46 11:42 RBC 2.54 L (4.30-5.90) m/uL Hgb 7.5 L (13.0-17.5) gm/dL Hct 25.4 L (39.0-53.0) % MCHC 29.7 L (31.0-37.0) g/dL RDW 26.6 H (11.5-15.5) % Macrocytosis Marked A Chloride (98-107) mmol/L POC Glucose (mg/dL) 163 H (75-99) mg/dL Assessment and Plan Assessment: End-stage lung disease, very severe COPD/emphysema C. difficile colitis, recurrent Nonanion gap metabolic acidosis likely secondary to intractable diarrhea Severe sepsis associated with pneumonia likely mixed bacterial and/or or gram- negative related Squamous cell lung cancer Chronic renal failure stage III Chronic CHF, diastolic Persistent atrial fibrillation Anemia, macrocytic History of lung cancer History of IA in the past ABX per ID Pulmicort 1 mg twice a day Singulair Perforomist Continue Mucinex DuoNeb nebs to every 4 hours IV steroid taper Continue home medications Patient seen and examined covering for Dr. Nazario PT and OT IS and pulmonary hygiene Sputum culture Monitor H/H Lasix 20 mg IV Q12 hours x 2 more doses
[2018-10-28 16:57] LABS: Glucose,Whole Blood 149 mg/dL (75-99)
[2018-10-28] MEDS: SODIUM CHLORIDE 0.9% 1,000 ML IV SCH (17:32)
[2018-10-28] MEDS: FOLIC ACID 1 MG TAB PO SCH (17:42)
--- NOTE | 2018-10-28 18:33 | PN ---
PROGRESS NOTE DATE OF SERVICE: 10/28/2018. REASON FOR FOLLOWUP: C difficile colitis. INTERVAL HISTORY: The patient is currently afebrile. The patient is breathing comfortably. Denies having any chest pain. Occasional cough. No abdominal pain. Diarrhea has slowed down. Had 1 episode last night and 1 today and is slightly forming up. PHYSICAL EXAMINATION: Blood pressure is 112/71 with a pulse of 95, temperature 98.1. He is 91% on 3 L nasal cannula. General description is an elderly male lying in bed in no distress. Respiratory system: Unlabored breathing. Clear to auscultation anteriorly. Heart S1, S2. Regular rate. ABDOMEN: Soft, no tenderness. Extremities: No edema of the feet. LABS: Hemoglobin 7.5, white count 6.8. BUN of 15, creatinine 0.81. Blood and urine cultures have been negative so far. DIAGNOSTIC IMPRESSION AND PLAN: Patient with acute C difficile colitis slowly clinically responding to the oral vancomycin to continue to finish at least a ten days to two week course of therapy while monitoring clinical course closely. Continue supportive care. MMODL / IJN: [id number] /
[2018-10-29] MEDS: IPRATROPIUM-ALBUTEROL 3 ML NEB INHALATION SCH ×5 (03:05→19:39)
[2018-10-29] MEDS: VANCOMYCIN ORAL SOLUTION 250 MG/5 ML BOTTLE PO SCH ×4 (06:20→23:27)
[2018-10-29] MEDS: LEVOTHYROXINE 50 MCG TAB PO SCH (06:20)
[2018-10-29 06:59] LABS: Glucose,Whole Blood 113 mg/dL (75-99)
[2018-10-29] MEDS: FORMOTEROL FUMARATE 20 MCG/2 ML NEBU INHALATION SCH ×2 (08:05→19:39)
[2018-10-29] MEDS: BUDESONIDE 1 MG/2 ML NEBU INHALATION SCH ×2 (08:05→19:39)
[2018-10-29] MEDS: FAMOTIDINE 20 MG TAB PO SCH ×2 (08:46→18:19)
[2018-10-29] MEDS: DIVALPROEX 500 MG TABLET.DR PO SCH ×2 (08:46→18:19)
[2018-10-29] MEDS: LACTOBACILLUS ACIDOPH & BULGAR 1 EACH PACKET PO SCH (08:47)
[2018-10-29] MEDS: MAGNESIUM OXIDE 400 MG TAB PO SCH (08:47)
[2018-10-29] MEDS: FUROSEMIDE 10 MG/ML 2 ML VIAL IV SCH (08:47)
[2018-10-29] MEDS: guaiFENesin 600 MG TABLET.ER PO SCH ×2 (08:47→19:59)
[2018-10-29] MEDS: ASPIRIN 81 MG PO SCH (08:47)
[2018-10-29] MEDS: TAMSULOSIN 0.4 MG CAP.ER.24H PO SCH (08:48)
[2018-10-29] MEDS: METOPROLOL SUCCINATE (ER) 50 MG TAB.ER.24H PO SCH (08:48)
[2018-10-29] MEDS: predniSONE 20 MG TAB PO SCH (08:48)
[2018-10-29] MEDS: POTASSIUM CHLORIDE ER 20 MEQ TAB.ER PO SCH (08:48)
[2018-10-29] MEDS: ISOSORBIDE MONONITRATE ER 30 MG TAB.ER.24H PO SCH (08:49)
[2018-10-29] MEDS: MONTELUKAST 10 MG TAB PO SCH (08:49)
[2018-10-29] MEDS: carBAMazepine 200 MG TAB PO SCH ×2 (08:56→19:59)
[2018-10-29] MEDS: PARoxetine 10 MG TAB PO SCH (08:56)
[2018-10-29 10:49] LABS: Anion Gap 7 mmol/L; Blood Urea Nitrogen 14 mg/dL (9-20); Calcium 8.2 mg/dL (8.4-10.2); Carbon Dioxide 24 mmol/L (22-30); Chloride 106 mmol/L (98-107); Glucose 81 mg/dL (74-99); Potassium 3.9 mmol/L (3.5-5.1); Sodium 137 mmol/L (137-145)
[2018-10-29 11:38] LABS: Anisocytosis Marked; HCT 25.5 % (39.0-53.0); HGB 7.6 gm/dL (13.0-17.5); Hypochromasia Marked; MCH 29.9 pg (25.0-35.0); MCHC 29.7 g/dL (31.0-37.0); MCV 100.6 fL (80.0-100.0); Macrocytosis Marked; Mean Platelet Volume 10.4; Microcytosis Slight; Platelet Count 241 k/uL (150-450); Poikilocytosis Slight; RBC 2.53 m/uL (4.30-5.90); WBC 6.8 k/uL (3.8-10.6)
[2018-10-29 11:54] LABS: RDW 26.4 % (11.5-15.5)
[2018-10-29 12:07] LABS: Glucose,Whole Blood 138 mg/dL (75-99)
--- NOTE | 2018-10-29 12:37 | P.PN ---
Subjective 68-year-old male is being treated for C. diff colitis. Patient went into respiratory distress last night appears to have pulmonary edema received Lasix significant improvement in his respiratory status and good urine output. Patient had normal ejection fraction patient may have diastolic dysfunction. Patient is presently include Suboxone does have history of COPD. 10/28/2018 Respiratory status improved, will give him a 2 more doses of IV Lasix diarrhea improved. Echocardiogram is noninflammatory regarding ejection fraction 10/29/2018 Patient is saturating well but does have crackles on lung exam and chest x-ray still showing significant bronchovascular markings are increased Lasix to 40 IV twice a day possibly can be discharged tomorrow. Constitutional: Denied any fatigue denied any fever. Cardio vascular: denied any chest pain, palpitations Gastrointestinal denied any nausea vomiting Pulmonary: Denied any shortness of breath cough Neurologic denied any new focal deficits All inpatient medications were reviewed and appropriate changes in these medications as dictated in the interval history and assessment and plan. Objective - Vital Signs Vital signs: Vital Signs Temp 98.9 F 10/29/18 07:00 Pulse 100 10/29/18 12:09 Resp 15 10/29/18 08:19 BP 119/65 10/29/18 07:00 Pulse Ox 97 10/29/18 07:00 Intake & Output 10/28/18 10/29/18 10/29/18 18:59 06:59 18:59 Intake Total 540 Output Total 300 1650 1 Balance 240 -1650 -1 Weight 70.5 kg Intake: Oral 540 Output: Urine 300 1650 Stool 1 Other: Voiding Method Urinal Urinal # Voids 3 1 # Bowel Movements 1 1 1 - Exam PHYSICAL EXAMINATION: GENERAL: The patient is alert and oriented x3, not in any acute distress. Well developed, well nourished. HEENT: Pupils are round and equally reacting to light. EOMI. No scleral icterus. No conjunctival pallor. Normocephalic, atraumatic. No pharyngeal erythema. No thyromegaly. CARDIOVASCULAR: S1 and S2 present. No murmurs, rubs, or gallops. PULMONARY: Chest is clear to auscultation, no wheezing or crackles. ABDOMEN: Soft, nontender, nondistended, normoactive bowel sounds. No palpable organomegaly. MUSCULOSKELETAL: No joint swelling or deformity. EXTREMITIES: No cyanosis, clubbing, or pedal edema. NEUROLOGICAL: Gross neurological examination did not reveal any focal deficits. SKIN: No rashes. - Labs CBC & Chem 7: 10/29/18 07:15 10/29/18 07:15 Labs: Abnormal Lab Results - Last 24 Hours (Table) 10/28/18 10/29/18 10/29/18 Range/Units 16:38 06:43 07:15 RBC (4.30-5.90) m/uL Hgb (13.0-17.5) gm/dL Hct (39.0-53.0) % MCV (80.0-100.0) fL MCHC (31.0-37.0) g/dL RDW (11.5-15.5) % Macrocytosis POC Glucose (mg/dL) 149 H 113 H (75-99) mg/dL Calcium 8.2 L (8.4-10.2) mg/dL 10/29/18 10/29/18 Range/Units 07:15 11:53 RBC 2.53 L (4.30-5.90) m/uL Hgb 7.6 L (13.0-17.5) gm/dL Hct 25.5 L (39.0-53.0) % MCV 100.6 H (80.0-100.0) fL MCHC 29.7 L (31.0-37.0) g/dL RDW 26.4 H (11.5-15.5) % Macrocytosis Marked A POC Glucose (mg/dL) 138 H (75-99) mg/dL Calcium (8.4-10.2) mg/dL Assessment and Plan Plan: -Acute hypoxic respiratory failure secondary to pulmonary edema heart failure exacerbation chronic diastolic dysfunction with acute exacerbation, still has crackles on exam will increase the Lasix to 40 IV twice a day -COPD and patient is being treated for exacerbation of COPD as well. -C. diff colitis: Diarrhea improved continue with toe by mouth vancomycin -Persistent A. fib presently rate controlled continue with metoprolol and patient is not in any anticoagulation because of his multiple GI bleeds in the past Heparin coronary artery disease -Gases patient reflux disease -Essential hypertension -Hyperlipidemia -Seizure disorder The rest of his chronic stable with the problems patient will be continued on present medications
--- NOTE | 2018-10-29 12:50 | XR ---
EXAMINATION TYPE: XR chest 1V DATE OF EXAM: 10/29/2018 COMPARISON: Prior chest x-ray 10/27/[address] 11/03/2018 HISTORY: Abnormal physical exam, congestion, abnormal chest x-ray TECHNIQUE: Single frontal view of the chest is obtained. FINDINGS: There are overlying cardiac leads and the patient is rotated. Right hemidiaphragm remains elevated. Heart size is likely stable. Interstitium is again noted to be prominent. No evident pneumo thorax or pleural effusion. Probable scarring in the left upper lobe again seen. IMPRESSION: May be some improvement in patient's airspace disease. Extensive emphysematous changes.
--- NOTE | 2018-10-29 14:22 | PN ---
PROGRESS NOTE DATE OF SERVICE: 10/29/2018 REASON FOR FOLLOWUP: Clostridium difficile colitis. INTERVAL HISTORY: The patient is currently afebrile, has been breathing comfortably. Denies significant chest pain. Occasional cough. No abdominal pain. The diarrhea has improved. Had about 2 bowel movements today and they are forming up. PHYSICAL EXAMINATION: Blood pressure 119/65 with a pulse of 100, temperature 98.9. He is 97% on 2 L nasal cannula. General description is an elderly male, lying in bed in no distress. RESPIRATORY SYSTEM: Unlabored breathing, clear to auscultation anteriorly. HEART: S1, S2. Regular rate and rhythm. ABDOMEN: Soft, no tenderness. LABS: Hemoglobin 7.8, white count 6.8. BUN of 14, creatinine 0.79. Blood cultures have been negative. DIAGNOSTIC IMPRESSION AND PLAN: Patient with acute Clostridium difficile colitis. The patient at this time responding to oral vancomycin, to continue with plan to finish a 2-week course of therapy. Advised to his probiotic. Continue with intake. Continue with supportive care. MMODL / IJN: [id number] /
--- NOTE | 2018-10-29 14:40 | P.PN ---
Subjective Progress Note Date: 10/29/18 Principal diagnosis: Severe COPD emphysema, congestive heart failure likely diastolic dysfunction, intractable diarrhea related to C. difficile colitis, as, cell cancer of the lung status post resection, chronic congestive heart failure diastolic heart failure, atrial fibrillation, chronic anemia, pulmonary fibrosis, 10/29/2018, patient seen and evaluated examined during the rounds, clinically doing slightly better has received some Lasix today feeling good in terms of breathing I have reviewed the computed tomography scan overall improvement in infiltrate and fibrosis have been seen some of the fibrosis persistent likely 68-year-old male seen and evaluated examined he has a severe COPD emphysema and chronic hypoxic respiratory failure he is on supplemental oxygen and breathing treatment he has a history of lung cancer which was resected in the past he has multiple admission to the hospital for pneumonia he presented into the hospital with lower abdominal pain of less than 2 day duration white cell count is high he has some pain on the on the right chest but is stable now, he is worked up for diverticulosis of GI bleed endoscopies done earlier today which is u nremarkable Objective - Vital Signs Vital signs: Vital Signs Temp 98.9 F 10/29/18 07:00 Pulse 100 10/29/18 12:09 Resp 15 10/29/18 08:19 BP 119/65 10/29/18 07:00 Pulse Ox 97 10/29/18 07:00 Intake & Output 10/28/18 10/29/18 10/29/18 18:59 06:59 18:59 Intake Total 540 Output Total 300 1650 1 Balance 240 -1650 -1 Weight 70.5 kg Intake: Oral 540 Output: Urine 300 1650 Stool 1 Other: Voiding Method Urinal Urinal # Voids 3 1 # Bowel Movements 1 1 1 - Exam - EENT Eyes: poor dentition - Neck Neck: normal ROM - Respiratory Respiratory: bilateral: diminished, prolonged expiration, negative: dullness, rales, rhonchi, wheezing, prolonged inspiration - Cardiovascular Rhythm: regular Heart sounds: normal: S1, S2 - Gastrointestinal General gastrointestinal: normal bowel sounds, soft - Neurologic Neurologic: CNII-XII intact - Musculoskeletal Musculoskeletal: gait normal, generalized weakness, strength equal bilaterally - Psychiatric Psychiatric: A&O x's 3, appropriate affect, intact judgment & insight - Labs CBC & Chem 7: 10/29/18 07:15 10/29/18 07:15 Labs: Abnormal Lab Results - Last 24 Hours (Table) 10/28/18 10/29/18 10/29/18 Range/Units 16:38 06:43 07:15 RBC (4.30-5.90) m/uL Hgb (13.0-17.5) gm/dL Hct (39.0-53.0) % MCV (80.0-100.0) fL MCHC (31.0-37.0) g/dL RDW (11.5-15.5) % Macrocytosis POC Glucose (mg/dL) 149 H 113 H (75-99) mg/dL Calcium 8.2 L (8.4-10.2) mg/dL 10/29/18 10/29/18 Range/Units 07:15 11:53 RBC 2.53 L (4.30-5.90) m/uL Hgb 7.6 L (13.0-17.5) gm/dL Hct 25.5 L (39.0-53.0) % MCV 100.6 H (80.0-100.0) fL MCHC 29.7 L (31.0-37.0) g/dL RDW 26.4 H (11.5-15.5) % Macrocytosis Marked A POC Glucose (mg/dL) 138 H (75-99) mg/dL Calcium (8.4-10.2) mg/dL Assessment and Plan Assessment: Diastolic heart failure Atrial fibrillation C. difficile colitis Abdominal pain related to above Left upper lobe lesion/mass likely related to fibrotic changes appearing x-ray however computed tomography scan failed to reveal any masslike lesion Stable COPD Chronic respiratory failure Taper and DC prednisone Plan: As above Time with Patient: Greater than 30
[2018-10-29] MEDS: SODIUM CHLORIDE 0.9% 1,000 ML IV SCH (16:08)
[2018-10-29] MEDS: FOLIC ACID 1 MG TAB PO SCH (18:19)
[2018-10-29] MEDS: FUROSEMIDE 10 MG/ML 4 ML VIAL IV SCH (19:59)
[2018-10-30] MEDS: IPRATROPIUM-ALBUTEROL 3 ML NEB INHALATION SCH ×4 (00:02→13:18)
[2018-10-30] MEDS: VANCOMYCIN ORAL SOLUTION 250 MG/5 ML BOTTLE PO SCH (05:01)
[2018-10-30] MEDS: LEVOTHYROXINE 50 MCG TAB PO SCH (05:01)
[2018-10-30 06:48] LABS: Glucose,Whole Blood 107 mg/dL (75-99)
[2018-10-30 08:22] LABS: Anion Gap 9 mmol/L; Blood Urea Nitrogen 15 mg/dL (9-20); Calcium 8.5 mg/dL (8.4-10.2); Carbon Dioxide 23 mmol/L (22-30); Chloride 107 mmol/L (98-107); Glucose 80 mg/dL (74-99); Sodium 139 mmol/L (137-145)
[2018-10-30] MEDS: BUDESONIDE 1 MG/2 ML NEBU INHALATION SCH (09:39)
[2018-10-30] MEDS: FORMOTEROL FUMARATE 20 MCG/2 ML NEBU INHALATION SCH (09:39)
[2018-10-30] MEDS: guaiFENesin 600 MG TABLET.ER PO SCH (10:02)
[2018-10-30] MEDS: carBAMazepine 200 MG TAB PO SCH (10:03)
[2018-10-30] MEDS: FAMOTIDINE 20 MG TAB PO SCH (10:03)
[2018-10-30] MEDS: DIVALPROEX 500 MG TABLET.DR PO SCH (10:03)
[2018-10-30] MEDS: METOPROLOL SUCCINATE (ER) 50 MG TAB.ER.24H PO SCH (10:04)
[2018-10-30] MEDS: ISOSORBIDE MONONITRATE ER 30 MG TAB.ER.24H PO SCH (10:04)
[2018-10-30] MEDS: MONTELUKAST 10 MG TAB PO SCH (10:04)
[2018-10-30] MEDS: predniSONE 20 MG TAB PO SCH (10:04)
[2018-10-30] MEDS: PARoxetine 10 MG TAB PO SCH (10:04)
[2018-10-30] MEDS: POTASSIUM CHLORIDE ER 20 MEQ TAB.ER PO SCH (10:04)
[2018-10-30] MEDS: MAGNESIUM OXIDE 400 MG TAB PO SCH (10:05)
[2018-10-30] MEDS: LACTOBACILLUS ACIDOPH & BULGAR 1 EACH PACKET PO SCH (10:05)
[2018-10-30] MEDS: FUROSEMIDE 10 MG/ML 4 ML VIAL IV SCH (10:05)
[2018-10-30] MEDS: ASPIRIN 81 MG PO SCH (10:05)
[2018-10-30] MEDS: TAMSULOSIN 0.4 MG CAP.ER.24H PO SCH (10:05)
[2018-10-30 11:35] VITALS: BP 122/64; RESP 14; TEMP 98.1
[2018-10-30 11:57] LABS: Glucose,Whole Blood 141 mg/dL (75-99)
[2018-10-30 13:29] VITALS: PULSE 92
--- NOTE | 2018-10-30 14:40 | P.DS ---
Providers Date of admission: 10/20/18 15:02 Attending physician: Alex Cassidy Consults: 10/20/18 18:01 Consult Physician Routine Consulting Provider: Francy Abreu Consult Reason/Comments: abd pain- Do you want consulting provider notified?: Yes 10/21/18 14:48 Consult Physician Routine Consulting Provider: Rico Nazario Consult Reason/Comments: sob Do you want consulting provider notified?: Yes 10/24/18 13:38 Consult Physician Routine Consulting Provider: Rahul Craft Consult Reason/Comments: adenocarcinoma lung Do you want consulting provider notified?: Yes 10/24/18 23:02 Consult Physician Routine Consulting Provider: Henny Herrera Consult Reason/Comments: abd infection/pneumonia Do you want consulting provider notified?: Yes 10/27/18 04:55 Consult Physician Routine Consulting Provider: Troy Bardales Consult Reason/Comments: History of AFib Do you want consulting provider notified?: Yes, Notify in am Primary care physician: [facility] Course: 68-year-old male is being treated for C. diff colitis. Patient went into respiratory distress last night appears to have pulmonary edema received Lasix significant improvement in his respiratory status and good urine output. Patient had normal ejection fraction patient may have diastolic dysfunction. Patient is presently include Suboxone does have history of COPD. 10/28/2018 Respiratory status improved, will give him a 2 more doses of IV Lasix diarrhea improved. Echocardiogram is noninflammatory regarding ejection fraction 10/29/2018 Patient is saturating well but does have crackles on lung exam and chest x-ray still showing significant bronchovascular markings are increased Lasix to 40 IV twice a day possibly can be discharged tomorrow. 10/30/2018 Patient is clinically doing well significant improvement in his respiratory status is not requiring oxygen at rest will ablate the patient with the dogs and if patient doesn't require [place] this will be discontinued and patient was discharged to subacute rehabilitation today. Crackles improved PHYSICAL EXAMINATION: GENERAL: The patient is alert and oriented x3, not in any acute distress. Well developed, well nourished. HEENT: Pupils are round and equally reacting to light. EOMI. No scleral icterus. No conjunctival pallor. Normocephalic, atraumatic. No pharyngeal erythema. No thyromegaly. CARDIOVASCULAR: S1 and S2 present. No murmurs, rubs, or gallops. PULMONARY: Chest is clear to auscultation, no wheezing or crackles. ABDOMEN: Soft, nontender, nondistended, normoactive bowel sounds. No palpable organomegaly. MUSCULOSKELETAL: No joint swelling or deformity. EXTREMITIES: No cyanosis, clubbing, or pedal edema. NEUROLOGICAL: Gross neurological examination did not reveal any focal deficits. SKIN: No rashes. Assessment and Plan Plan: -Acute hypoxic respiratory failure secondary to pulmonary edema heart failure exacerbation chronic diastolic dysfunction with acute exacerbation, she will be discharged on 40 mg oral Lasix . -COPD and patient is being treated for exacerbation of COPD as well. -C. diff colitis: Diarrhea improved continue with toe by mouth vancomycin for 5 more days -Persistent A. fib presently rate controlled continue with metoprolol and patient is not in any anticoagulation because of his multiple GI bleeds in the past Heparin coronary artery disease -Gastroesophageal reflux disease -Essential hypertension -Hyperlipidemia -Seizure disorder Patient Condition at Discharge: Stable Plan - Discharge Summary Discharge Rx Participant: No New Discharge Prescriptions: New Vancomycin Oral Solution 250 mg PO Q6HR #5 day predniSONE 10 mg PO DAILY #30 tab Continue Divalproex [Depakote] 1,000 mg PO BID@0800,1700 Budesonide-Formot 160-4.5 Mcg [Symbicort 160-4.5 Mcg Inhaler] 2 puff INHALATION RT-BID Ipratropium-Albuterol Nebulize [Duoneb 0.5 mg-3 mg/3 ml Soln] 3 ml IH RT-QID neb Metoprolol Succinate (ER) [Toprol XL] 25 mg PO DAILY tab PARoxetine [Paxil] 10 mg PO DAILY tab Magnesium Hydroxide [Milk of Magnesia] 2,400 mg PO DAILY PRN PRN Reason: Constipation Calcium Carbonate [Tums] 500 mg PO Q8H PRN PRN Reason: UPSET STOMACH Bisacodyl [Dulcolax] 10 mg RECTAL DAILY PRN PRN Reason: Constipation Tamsulosin [Flomax] 0.4 mg PO QAM Aspirin 81 mg PO DAILY chew Nitroglycerin Sl Tabs [Nitrostat] 0.4 mg SUBLINGUAL Q5M PRN #20 tab PRN Reason: Chest Pain Acetaminophen [Tylenol] 650 mg PO Q6H PRN PRN Reason: Pain carBAMazepine [TEGretol] 200 mg PO BID Ferrous Sulfate [Feosol] 325 mg PO DAILY Folic Acid 1 mg PO DAILY@1700 Furosemide [Lasix] 40 mg PO DAILY Isosorbide Mononitrate ER [Imdur] 30 mg PO DAILY@0800 LKyleacidoph,Paracasei, B.lactis [Probiotic] 1 cap PO DAILY Levothyroxine Sodium [Synthroid] 50 mcg PO DAILY@0600 Magnesium Oxide 400 mg PO DAILY Montelukast [Singulair] 10 mg PO DAILY Na Phos,M-B/Na Phos,Di-Ba [Fleet Adult] 133 ml RECTAL DAILY PRN PRN Reason: Constipation Potassium Chloride ER [K-Dur 20] 20 meq PO DAILY Ranitidine HCl 150 mg PO BID@0800,1700 Gabapentin [Neurontin] 100 mg PO DAILY PRN #7 capsule PRN Reason: Spasms Discontinued Levalbuterol Nebulized [Xopenex Nebulized] 1.25 mg INHALATION RT-Q8H predniSONE See Taper PO DIRECTED Discharge Medication List Budesonide-Formot 160-4.5 Mcg [Symbicort 160-4.5 Mcg Inhaler] 2 puff INHALATION RT-BID 05/22/14 [History] Divalproex [Depakote] 1,000 mg PO BID@0800,1700 05/22/14 [History] Ipratropium-Albuterol Nebulize [Duoneb 0.5 mg-3 mg/3 ml Soln] 3 ml IH RT-QID neb 03/22/17 [Rx] Metoprolol Succinate (ER) [Toprol XL] 25 mg PO DAILY tab 03/22/17 [Rx] PARoxetine [Paxil] 10 mg PO DAILY tab 03/22/17 [Rx] Bisacodyl [Dulcolax] 10 mg RECTAL DAILY PRN 04/03/17 [History] Calcium Carbonate [Tums] 500 mg PO Q8H PRN 04/03/17 [History] Magnesium Hydroxide [Milk of Magnesia] 2,400 mg PO DAILY PRN 04/03/17 [History] Tamsulosin [Flomax] 0.4 mg PO QAM 04/03/17 [History] Aspirin 81 mg PO DAILY chew 04/05/17 [Rx] Nitroglycerin Sl Tabs [Nitrostat] 0.4 mg SUBLINGUAL Q5M PRN #20 tab 04/05/17 [Rx] Acetaminophen [Tylenol] 650 mg PO Q6H PRN 10/20/18 [History] Ferrous Sulfate [Feosol] 325 mg PO DAILY 10/20/18 [History] Folic Acid 1 mg PO DAILY@1700 10/20/18 [History] Furosemide [Lasix] 40 mg PO DAILY 10/20/18 [History] Isosorbide Mononitrate ER [Imdur] 30 mg PO DAILY@0800 10/20/18 [History] L.acidoph,Paracasei, B.lactis [Probiotic] 1 cap PO DAILY 10/20/18 [History] Levothyroxine Sodium [Synthroid] 50 mcg PO DAILY@0600 10/20/18 [History] Magnesium Oxide 400 mg PO DAILY 10/20/18 [History] Montelukast [Singulair] 10 mg PO DAILY 10/20/18 [History] Na Phos,M-B/Na Phos,Di-Ba [Fleet Adult] 133 ml RECTAL DAILY PRN 10/20/18 [History] Potassium Chloride ER [K-Dur 20] 20 meq PO DAILY 10/20/18 [History] Ranitidine HCl 150 mg PO BID@0800,1700 10/20/18 [History] carBAMazepine [TEGretol] 200 mg PO BID 10/20/18 [History] Gabapentin [Neurontin] 100 mg PO DAILY PRN #7 capsule 10/30/18 [Rx] Vancomycin Oral Solution 250 mg PO Q6HR #5 day 10/30/18 [Rx] predniSONE 10 mg PO DAILY #30 tab 10/30/18 [Rx] Follow up Appointment(s)/Referral(s): Edd Collins DO [Primary Care Provider] - 1-2 days Francy Abreu MD [STAFF PHYSICIAN] - 11/06/18 5:00 pm Rico Nazario MD [STAFF PHYSICIAN] - 1 Week (Please call office to make appointment office closed) Patient Instructions/Handouts: Diverticulitis (DC), Diverticulitis Diet (DC), Pneumonia (DC) Activity/Diet/Wound Care/Special Instructions: Heart Healthy diet Discharge Disposition: TRANSFER TO SNF/ECF
--- NOTE | 2018-10-30 22:21 | PN ---
PROGRESS NOTE DATE OF SERVICE: 10/30/2018. REASON FOR FOLLOWUP: C difficile colitis. INTERVAL HISTORY: The patient was seen on rounds this morning. The patient has been afebrile, has been breathing comfortably. Occasional cough. No chest pain and no abdominal pain. He did have diarrhea but frequency has decreased. PHYSICAL EXAMINATION: Blood pressure 122/64 with pulse of 73, temperature 8.1. He is 93% on 2 L nasal cannula. General description is an elderly male lying in bed in no distress. Respiratory system: Unlabored breathing, clear to auscultation. HEART: S1, S2. Regular rate and rhythm. ABDOMEN: Soft. No tenderness. LABS: BUN of 15, creatinine 0.90. DIAGNOSTIC IMPRESSION AND PLAN: Patient with acute C difficile colitis. Patient did finish therapy with oral vancomycin 250 q.6 hours for 2 weeks. Questran for symptomatic relief and toxin binding and continue supportive care. MMODL / IJN: [id number] /
== END 2018-10-30 15:20 | DRG 871 ==
LOC: EC 11:50 → 3SCARD 15:02 → 4SSUR 10-23 18:16
PROVIDERS: ADMIT Hospitalist; ATTEND Hospitalist
PROC: 0DJ08ZZ Inspection of Upper Intestinal Tract, Via Natural or Artificial Opening Endoscopic (ICD-10-PCS; principal; 2018-10-24 09:15)
PROC: 5A09457 Assistance with Respiratory Ventilation, 24-96 Consecutive Hours, Continuous Positive Airway Pressure (ICD-10-PCS; 2018-10-27)
DX: A41.50 Gram-negative sepsis, unspecified (principal); J15.6 Pneumonia due to other Gram-negative bacteria; I50.33 Acute on chronic diastolic (congestive) heart failure; J96.21 Acute and chronic respiratory failure with hypoxia; I48.1 Persistent atrial fibrillation; E87.2 Acidosis; I13.0 Hypertensive heart and chronic kidney disease with heart failure and stage 1 through stage 4 chronic kidney disease, or unspecified chronic kidney disease; K57.32 Diverticulitis of large intestine without perforation or abscess without bleeding; A04.71 Enterocolitis due to Clostridium difficile, recurrent; K22.10 Ulcer of esophagus without bleeding; D62 Acute posthemorrhagic anemia; R04.2 Hemoptysis; J84.10 Pulmonary fibrosis, unspecified; R65.20 Severe sepsis without septic shock; J43.9 Emphysema, unspecified; N18.3 Chronic kidney disease, stage 3 (moderate); G40.909 Epilepsy, unspecified, not intractable, without status epilepticus; I69.328 Other speech and language deficits following cerebral infarction; I69.398 Other sequelae of cerebral infarction; D53.9 Nutritional anemia, unspecified; K76.9 Liver disease, unspecified; I25.10 Atherosclerotic heart disease of native coronary artery without angina pectoris; R40.2142 Coma scale, eyes open, spontaneous, at arrival to emergency department; R40.2362 Coma scale, best motor response, obeys commands, at arrival to emergency department; R40.2252 Coma scale, best verbal response, oriented, at arrival to emergency department; K21.0 Gastro-esophageal reflux disease with esophagitis; K29.50 Unspecified chronic gastritis without bleeding; E78.5 Hyperlipidemia, unspecified; M54.5 Low back pain; G89.29 Other chronic pain; I25.2 Old myocardial infarction; Z99.81 Dependence on supplemental oxygen; Z79.82 Long term (current) use of aspirin; Z79.51 Long term (current) use of inhaled steroids; Z79.890 Hormone replacement therapy; Z79.899 Other long term (current) drug therapy; Z87.891 Personal history of nicotine dependence; Z85.038 Personal history of other malignant neoplasm of large intestine; Z87.11 Personal history of peptic ulcer disease; Z87.442 Personal history of urinary calculi; Z90.49 Acquired absence of other specified parts of digestive tract; Z85.118 Personal history of other malignant neoplasm of bronchus and lung; Z98.42 Cataract extraction status, left eye; Z98.41 Cataract extraction status, right eye; Z88.7 Allergy status to serum and vaccine; Z88.8 Allergy status to other drugs, medicaments and biological substances; Z82.3 Family history of stroke; Z80.9 Family history of malignant neoplasm, unspecified
CPT/HCPCS: 36415; 36600; 43235; 71045; 71046; 71250; 74177; 80048; 80053; 81003; 82607; 82728; 82746; 82805; 83540; 83550; 83605; 83880; 85025; 85027; 85045; 85379; 85610; 85730; 87040; 87086; 87324; 87493; 93005; 93306; 94640; 94660; 94760; 96365; 96367; 96368; 96375; 99285

== ENCOUNTER 2018-11-03 15:42 | Inpatient (IN) | payer MEDICARE, OTHER ==
[2018-11-03] MEDS ORDERED: SODIUM CHLORIDE 0.9% 500 ML IV STA (15:57)
[2018-11-03 16:21] LABS: Albumin 2.8 g/dL (3.5-5.0); Calcium 8.2 mg/dL (8.4-10.2); Magnesium 1.7 mg/dL (1.6-2.3); Potassium 4.3 mmol/L (3.5-5.1); Total Bilirubin 0.8 mg/dL (0.2-1.3)
[2018-11-03 16:27] LABS: INR 1.1 (<1.2); Partial Thromboplastin Time 25.5 sec (22.0-30.0); Prothrombin Time 11.6 sec (9.0-12.0)
--- NOTE | 2018-11-03 16:28 | ED ---
General Adult HPI - General Chief complaint: Weakness Stated complaint: Weakness, dizzy Time Seen by Provider: 11/03/18 15:55 Source: EMS Mode of arrival: EMS Limitations: no limitations - History of Present Illness Initial comments: Dictation was produced using [employer] dictation software. please excuse any grammatical, word or spelling errors. Chief Complaint: 68-year-old male with a chief complaint of generalized weakness for the last 2-3 days. History of Present Illness: Patient is 68-year-old male here is multiple c omorbid disease including atrial fibrillation, cancer, seizure disorder, CVA, COPD. Presents today with several days of generalized weakness. Patient was recently admitted to the hospital for dyspnea, C. diff colitis, hypoxic respiratory failure secondary to pulmonary edema. Patient was dispositioned to rehab facility however he reports that he did not improve. His prior to the emergency department for further evaluation. Patient had a CT performed recently showing emphysema and extensive ulnar fibrosis. The ROS documented in this emergency department record has been reviewed and confirmed by me. Those systems with pertinent positive or negative responses have been documented in the HPI. All other systems are other negative and/or noncontributory. PHYSICAL EXAM: General Impression: Alert and oriented x3, not in acute distress, pallor HEENT: Normocephalic atraumatic, extra-ocular movements intact, pupils equal and reactive to light bilaterally, mucous membranes moist. Cardiovascular: Heart regular rate and rhythm, S1&S2 audible, no murmurs, rubs or gallops Chest: Bilateral end expiratory crackles Abdomen: Bowel sounds present, abdomen soft, non-tender, non-distended, no o rganomegaly Musculoskeletal: Pulses present and equal in all extremities, no peripheral edema Motor: no focal deficits noted Neurological: CN II-XII grossly intact, no focal motor or sensory deficits noted Skin: Intact with no visualized rashes Psych: Normal affect and mood ED course: Patient is 68-year-old male presents with generalized weakness. Patient was recently admitted to the hospital discharged to rehab facility. Patient has extensive pulmonary history including severe emphysema and COPD. Patient also complaining of shortness of breath. Signs upon arrival shows blood pressure 9457, rest of vital signs within acceptable limits. Patient's saturation 97 and 2 L nasal cannula. Patient appears pale at this time. He is not an anticoagulation for recurrent GI bleeds. Lab return evaluation obtained. No leukocytosis. Hemoglobin is 7.H which is decreased 1 g compared to yesterday. Patient denies any GI bleeding. No back pain to suggest retroperitoneal hemorrhage. Patient not having any hemoptysis. At this point there is no clear source of bleeding but there is concern for acute blood loss anemia. Coag panel is unremarkable. Patient has a lactic acidosis of 2.6 but no gap acidosis. Rest metabolic panel is negative. Chest x-ray shows interval development of bilateral patchy opacities concerning for recurrent pneumonia. Given the patient was recently admitted to be treated for healthcare associated pneumonia. Patient hemodynamically stable at this time. Patient given vancomycin and cefepime this patient case with Dr. ritter is willing to accept admission. Local presentation concerning for early sepsis. Patient given intravenous fluids. Spine there is no significant findings to suggest end organ dysfunction. EKG interpretation: Ventricular rate 92, A. fib, Q is 76, QTC 504. No AK prolongation, no ST or T-wave changes noted. Consistent with QT prolongation. - Related Data Home Medications Medication Instructions Recorded Confirmed Budesonide-Formot 160-4.5 Mcg 2 puff INHALATION RT-BID 05/22/14 11/03/18 [Symbicort 160-4.5 Mcg Inhaler] Divalproex [Depakote] 1,000 mg PO BID@0800,1700 05/22/14 11/03/18 Bisacodyl [Dulcolax] 10 mg RECTAL DAILY PRN 04/03/17 11/03/18 Calcium Carbonate [Tums] 500 mg PO Q8H PRN 04/03/17 11/03/18 Magnesium Hydroxide [Milk of 2,400 mg PO DAILY PRN 04/03/17 11/03/18 Magnesia] Tamsulosin [Flomax] 0.4 mg PO QAM 04/03/17 11/03/18 Acetaminophen [Tylenol] 650 mg PO Q6H PRN 10/20/18 11/03/18 Ferrous Sulfate [Feosol] 325 mg PO DAILY 10/20/18 11/03/18 Folic Acid 1 mg PO DAILY@1700 10/20/18 11/03/18 Furosemide [Lasix] 40 mg PO DAILY 10/20/18 11/03/18 Isosorbide Mononitrate ER [Imdur] 30 mg PO DAILY@0800 10/20/18 11/03/18 L.acidoph,Paracasei, B.lactis 1 cap PO DAILY 10/20/18 11/03/18 [Probiotic] Levothyroxine Sodium [Synthroid] 50 mcg PO DAILY@0600 10/20/18 11/03/18 Magnesium Oxide 400 mg PO DAILY 10/20/18 11/03/18 Montelukast [Singulair] 10 mg PO DAILY 10/20/18 11/03/18 Na Phos,M-B/Na Phos,Di-Ba [Fleet 133 ml RECTAL DAILY PRN 10/20/18 11/03/18 Adult] Potassium Chloride ER [K-Dur 20] 20 meq PO DAILY 10/20/18 11/03/18 Ranitidine HCl 150 mg PO BID@0800,1700 10/20/18 11/03/18 carBAMazepine [TEGretol] 200 mg PO BID 10/20/18 11/03/18 Levothyroxine Sodium [Synthroid] 50 mcg PO DAILY 11/03/18 11/03/18 predniSONE See Taper 11/03/18 Previous Rx's Medication Instructions Recorded Ipratropium-Albuterol Nebulize 3 ml IH RT-QID neb 03/22/17 [Duoneb 0.5 mg-3 mg/3 ml Soln] Metoprolol Succinate (ER) [Toprol 25 mg PO DAILY tab 03/22/17 XL] PARoxetine [Paxil] 10 mg PO DAILY tab 03/22/17 Aspirin 81 mg PO DAILY chew 04/05/17 Nitroglycerin Sl Tabs [Nitrostat] 0.4 mg SUBLINGUAL Q5M PRN #20 tab 04/05/17 Gabapentin [Neurontin] 100 mg PO DAILY PRN #7 capsule 10/30/18 Vancomycin Oral Solution 250 mg PO Q6HR #5 day 10/30/18 Allergies Allergy/AdvReac Type Severity Reaction Status Date / Time phenobarbital Allergy Unknown Hallucinati Verified 11/03/18 16:56 ons Influenza Virus Vaccines Allergy Unknown Verified 11/03/18 16:56 Review of Systems ROS Statement: Those systems with pertinent positive or pertinent negative responses have been documented in the HPI. ROS Other: All systems not noted in ROS Statement are negative. Past Medical History Past Medical History: Atrial Fibrillation, Cancer, Chest Pain / Angina, COPD, CVA/TIA, GERD/Reflux, GI Bleed, Hyperlipidemia, Hypertension, Myocardial Infarction ([place]), Musculoskeletal Disorder, Renal Disease, Seizure Disorder Additional Past Medical History / Comment(s): colonoscopy then laparoscopic sigmoid colectomy for adenocarcinoma was performed on 07/19/14. Other HX: colon cancer found during colonoscopy-polyp which was adenocarcinoma, SQUAMOUS CELL CARCINOMA LT UPPER LOBE. ULCER; EPILEPTIC - STATES LAST SEIZURE PREV TO 1994; CVA - AFFECTS SPEECH/able to print but not write in cursive. UNABLE TO COMPLETELY CLOSE LEFT HAND R/T hx of LARGE LACERATION. HX OF RT HIP DISORDER, WORE CAST, THEN BRACE FOR 2 YRS, chronic low back pain, renal cysts and kidney stones, GI bleed associated with anticoaulation. Has home O2 which he uses when necessary Last Myocardial Infarction Date:: patient reports 19 years ago History of Any Multi-Drug Resistant Organisms: None Reported, C-DIFF Date of last positivie culture/infection: 10/23/18 MDRO Source:: stool Past Surgical History: Orthopedic Surgery Additional Past Surgical History / Comment(s): 07/19/14 Laparoscopic sigmoid colectomy. LEFT HAND SX, EXC VILMA CATARACTS; COLONOSCOPY 05/26/14.BRONCH/BX- PNUEMOTHORAX/CHEST TUBE /WEDGE RESECTION TUMOR LT UPPER LOBE. Past Anesthesia/Blood Transfusion Reactions: No Reported Reaction Past Psychological History: No Psychological Hx Reported Smoking Status: Former smoker Past Alcohol Use History: None Reported Past Drug Use History: None Reported - Past Family History Father Family Medical History: CVA/TIA Mother Family Medical History: Cancer General Exam Limitations: no limitations Course Vital Signs 11/03/18 11/03/18 15:46 17:10 Temperature 98.3 F Pulse Rate 88 95 Respiratory 18 18 Rate Blood Pressure 94/57 95/62 O2 Sat by Pulse 97 100 Oximetry Medical Decision Making - Lab Data Result diagrams: 11/03/18 15:55 11/03/18 15:55 Lab Results 11/03/18 11/03/18 11/03/18 Range/Units 15:55 15:55 15:55 WBC 10.4 (3.8-10.6) k/uL RBC 2.52 L (4.30-5.90) m/uL Hgb 7.8 L (13.0-17.5) gm/dL Hct 25.4 L (39.0-53.0) % MCV 100.8 H (80.0-100.0) fL MCH 31.1 (25.0-35.0) pg MCHC 30.8 L (31.0-37.0) g/dL RDW 27.6 H (11.5-15.5) % Plt Count 231 (150-450) k/uL Neutrophils % 85 % Lymphocytes % 8 % Monocytes % 7 % Eosinophils % 0 % Basophils % 0 % Neutrophils # 8.8 H (1.3-7.7) k/uL Lymphocytes # 0.8 L (1.0-4.8) k/uL Monocytes # 0.7 (0-1.0) k/uL Eosinophils # 0.0 (0-0.7) k/uL Basophils # 0.0 (0-0.2) k/uL Manual Slide Review Performed Polychromasia Present Hypochromasia Marked Poikilocytosis Moderate Anisocytosis Marked Microcytosis Slight Macrocytosis Marked A Ovalocytes Present PT (9.0-12.0) sec INR (<1.2) APTT (22.0-30.0) sec Sodium 135 L (137-145) mmol/L Potassium 4.3 (3.5-5.1) mmol/L Chloride 103 (98-107) mmol/L Carbon Dioxide 24 (22-30) mmol/L Anion Gap 8 mmol/L BUN 19 (9-20) mg/dL Creatinine 1.04 (0.66-1.25) mg/dL Est GFR (CKD-EPI)AfAm 84 (>60 ml/min/1.73 sqM) Est GFR (CKD-EPI)NonAf 73 (>60 ml/min/1.73 sqM) Glucose 108 H (74-99) mg/dL Plasma Lactic Acid Jhonny 2.6 H* (0.7-2.0) mmol/L Calcium 8.2 L (8.4-10.2) mg/dL Magnesium 1.7 (1.6-2.3) mg/dL Total Bilirubin 0.8 (0.2-1.3) mg/dL AST 13 L (17-59) U/L ALT 13 L (21-72) U/L Alkaline Phosphatase 33 L (38-126) U/L Troponin I (0.000-0.034) ng/mL Total Protein 5.0 L (6.3-8.2) g/dL Albumin 2.8 L (3.5-5.0) g/dL TSH 1.290 (0.465-4.680) mIU/L 11/03/18 11/03/18 Range/Units 15:55 15:55 WBC (3.8-10.6) k/uL RBC (4.30-5.90) m/uL Hgb (13.0-17.5) gm/dL Hct (39.0-53.0) % MCV (80.0-100.0) fL MCH (25.0-35.0) pg MCHC (31.0-37.0) g/dL RDW (11.5-15.5) % Plt Count (150-450) k/uL Neutrophils % % Lymphocytes % % Monocytes % % Eosinophils % % Basophils % % Neutrophils # (1.3-7.7) k/uL Lymphocytes # (1.0-4.8) k/uL Monocytes # (0-1.0) k/uL Eosinophils # (0-0.7) k/uL Basophils # (0-0.2) k/uL Manual Slide Review Polychromasia Hypochromasia Poikilocytosis Anisocytosis Microcytosis Macrocytosis Ovalocytes PT 11.6 (9.0-12.0) sec INR 1.1 (<1.2) APTT 25.5 (22.0-30.0) sec Sodium (137-145) mmol/L Potassium (3.5-5.1) mmol/L Chloride (98-107) mmol/L Carbon Dioxide (22-30) mmol/L Anion Gap mmol/L BUN (9-20) mg/dL Creatinine (0.66-1.25) mg/dL Est GFR (CKD-EPI)AfAm (>60 ml/min/1.73 sqM) Est GFR (CKD-EPI)NonAf (>60 ml/min/1.73 sqM) Glucose (74-99) mg/dL Plasma Lactic Acid Jhonny (0.7-2.0) mmol/L Calcium (8.4-10.2) mg/dL Magnesium (1.6-2.3) mg/dL Total Bilirubin (0.2-1.3) mg/dL AST (17-59) U/L ALT (21-72) U/L Alkaline Phosphatase (38-126) U/L Troponin I <0.012 (0.000-0.034) ng/mL Total Protein (6.3-8.2) g/dL Albumin (3.5-5.0) g/dL TSH (0.465-4.680) mIU/L Disposition Clinical Impression: Sepsis, Healthcare-associated pneumonia Disposition: ADMITTED IP TO THIS HOSP Condition: Fair Referrals: Sue Arellano MD [Primary Care Provider] - 1-2 days Time of Disposition: 17:40 Decision Time: 17:40
[2018-11-03 16:34] LABS: Anisocytosis Marked; Basophils % (A) 0 %; Eosinophils % (A) 0 %; HCT 25.4 % (39.0-53.0); HGB 7.8 gm/dL (13.0-17.5); Hypochromasia Marked; Lymphocytes # (A) 0.8 k/uL (1.0-4.8); Lymphocytes % (A) 8 %; MCH 31.1 pg (25.0-35.0); MCHC 30.8 g/dL (31.0-37.0); MCV 100.8 fL (80.0-100.0); Macrocytosis Marked; Mean Platelet Volume 9.4; Microcytosis Slight; Monocytes # (A) 0.7 k/uL (0-1.0); Monocytes % (A) 7 %; Neutrophils # (A) 8.8 k/uL (1.3-7.7); Neutrophils % (A) 85 %; Platelet Count 231 k/uL (150-450); Poikilocytosis Moderate; RBC 2.52 m/uL (4.30-5.90); WBC 10.4 k/uL (3.8-10.6)
[2018-11-03 16:40] LABS: RDW 27.6 % (11.5-15.5)
--- NOTE | 2018-11-03 16:56 | XR ---
EXAMINATION TYPE: XR chest 2V DATE OF EXAM: 11/03/2018 COMPARISON: 10/29/2018 HISTORY: Dizziness and weakness TECHNIQUE: Frontal and lateral views of the chest are obtained. FINDINGS: New multifocal patchy opacities are seen in the right midlung and left superhilar region. Given their short-term interval development pneumonia is a primary consideration. Mild interstitial p ulmonary edema has also developed. Right-sided chronic hemidiaphragm elevation is noted. No sizable p neumothorax or pleural effusion. Generalized osseous demineralization is seen. IMPRESSION: Interval development of bilateral patchy opacities concerning for recurrent pneumonia wi th new mild interstitial pulmonary edema
[2018-11-03 16:59] LABS: Ovalocytes Present
[2018-11-03 17:00] LABS: Polychromasia Present
[2018-11-03] MEDS ORDERED: VANCOMYCIN 1,250 MG in SODIUM CHLORIDE 0.9% 250 ML IVPB STA (17:33)
[2018-11-03] MEDS ORDERED: CEFEPIME 2 GM in SODIUM CHLORIDE 0.9% 100 ML IVPB STA (17:34)
[2018-11-03] MEDS ORDERED: SODIUM CHLORIDE 0.9% 1,000 ML IV STA (17:35)
[2018-11-03] MEDS ORDERED: NALOXONE 0.4 MG/ML 1 ML VIAL IV PRN (17:40)
[2018-11-03 17:41] LABS: Appearance,Urine Clear (Clear); Bilirubin,Urine Negative (Negative); Blood,Urine Negative (Negative); Color,Urine Yellow; Glucose,Urine (UA) Negative (Negative); Hyaline Casts,Urine 3 /lpf (0-2); Ketones,Urine Negative (Negative); Leukocyte Esterase,Urine Negative (Negative); Mucus,Urine Rare /hpf; Nitrite,Urine Negative (Negative); PH, Urine 6.5 (5.0-8.0); Protein,Urine 1+ (Negative); RBC,Urine <1 /hpf (0-5); Specific Gravity,Urine 1.022 (1.001-1.035); Urobilinogen,Urine <2.0 mg/dL (<2.0)
[2018-11-03] MEDS: SODIUM CHLORIDE 0.9% 1,000 ML IV SCH (21:50)
[2018-11-04] MEDS ORDERED: ACETAMINOPHEN TAB 325 MG TAB PO PRN (02:40)
[2018-11-04] MEDS: ACETAMINOPHEN TAB 325 MG TAB PO PRN (02:48)
[2018-11-04] MEDS: SODIUM CHLORIDE 0.9% 1,000 ML IV SCH (06:38)
[2018-11-04] MEDS: PANTOPRAZOLE 40 MG/10 ML VIAL IV SCH (08:48)
[2018-11-04] MEDS: DIVALPROEX 500 MG TABLET.DR PO SCH ×2 (08:48→18:23)
[2018-11-04] MEDS: carBAMazepine 200 MG TAB PO SCH ×2 (08:48→20:55)
[2018-11-04] MEDS ORDERED: FUROSEMIDE 10 MG/ML 4 ML VIAL ONE (11:08)
[2018-11-04] MEDS ORDERED: LORazepam 2 MG/ML INJ ONE (11:22)
[2018-11-04 11:44] LABS: Glucose,Whole Blood 108 mg/dL (75-99)
[2018-11-04] MEDS ORDERED: ACETAMINOPHEN IV (For NPO) 1,000 MG in EMPTY BAG 1 BAG IVPB ONE (11:47)
[2018-11-04 11:53] LABS: Anisocytosis Marked; HCT 34.8 % (39.0-53.0); Hypochromasia Marked; MCH 30.1 pg (25.0-35.0); MCHC 28.2 g/dL (31.0-37.0); Macrocytosis Marked; Mean Platelet Volume 9.6; Platelet Count 335 k/uL (150-450); Poikilocytosis Slight; RBC 3.25 m/uL (4.30-5.90)
[2018-11-04 11:58] LABS: HGB 9.8 gm/dL (13.0-17.5)
[2018-11-04 11:59] LABS: RDW 27.5 % (11.5-15.5)
[2018-11-04 12:02] LABS: ALT 12 U/L (21-72); AST 22 U/L (17-59); Albumin 3.6 g/dL (3.5-5.0); Alkaline Phosphatase 39 U/L (38-126); Anion Gap 19 mmol/L; Blood Urea Nitrogen 19 mg/dL (9-20); Calcium 8.3 mg/dL (8.4-10.2); Carbon Dioxide 17 mmol/L (22-30); Chloride 101 mmol/L (98-107); Glucose 116 mg/dL (74-99); Sodium 137 mmol/L (137-145); Total Bilirubin 1.3 mg/dL (0.2-1.3); Total Protein 6.2 g/dL (6.3-8.2)
[2018-11-04 12:06] LABS: ABG Base Excess -3.9 mmol/L; ABG HCO3 20 mmol/L (21-25); ABG Oxygen Saturation 98.4 % (94-97); ABG PCO2 27 mmHg (35-45); ABG PH 7.47 (7.35-7.45); ABG PO2 100 mmHg (83-108); ABG TCO2 21 mmol/L (19-24)
[2018-11-04] MEDS ORDERED: LORazepam 2 MG/ML INJ IV STA (12:06)
--- NOTE | 2018-11-04 12:07 | XR ---
EXAMINATION TYPE: XR chest 1V portable DATE OF EXAM: 11/04/2018 HISTORY: increase oxygen needs. REFERENCE: Previous study dated 11/03/2018. FINDINGS: There is worsening alveolar airspace disease present bilaterally. The heart is not enlarged . I suspect small effusions. IMPRESSION: WORSENING APPEARANCE OF THE CHEST WITH WORSENING ALVEOLAR AIRSPACE DISEASE. MAY REPRESENT PULMONAR Y EDEMA OR PNEUMONIA. PLEASE CORRELATE CLINICALLY.
[2018-11-04] MEDS ORDERED: VANCOMYCIN IV PER PHARMACY 1 EACH MISC MISCELLANE PRN (12:29)
[2018-11-04 12:38] LABS: Band Neutrophils % 2 %; Metamyelocytes % 1 %; Myelocytes % 1 %; Neutrophils % (M) 79 %; Nucleated Red Blood Cells 3 /100 WBC (0-0); Total Cells Counted 200
[2018-11-04 12:39] LABS: Eosinophils # (M) 0.19 k/uL (0-0.7); Lymphocytes # (M) 2.09 k/uL (1.0-4.8); Metamyelocytes # (M) 0.19 k/uL (0); Monocytes # (M) 1.33 k/uL (0-1.0); Myelocytes # (M) 0.19 k/uL (0)
[2018-11-04 12:40] LABS: Polychromasia Present; RBC Fragments Present
[2018-11-04] MEDS ORDERED: FUROSEMIDE 10 MG/ML 4 ML VIAL IV STA (12:56)
[2018-11-04] MEDS ORDERED: VANCOMYCIN 1,250 MG in SODIUM CHLORIDE 0.9% 250 ML IVPB SCH (13:00)
--- NOTE | 2018-11-04 13:29 | CONS ---
CONSULTATION DATE OF SERVICE: 11/04/2018 This is a pulmonary/critical care consultation. HISTORY OF PRESENT ILLNESS: This is a 68-year-old patient who is a resident at [facility]. He apparently is brought in by EMS for weakness. He sees Dr. Schroeder in the emergency room. The patient apparently has a history of atrial fibrillation, seizure disorder, CVA, COPD. Apparently presents with weakness. He was recently admitted to the hospital for shortness of breath, C difficile colitis and hypoxemic respiratory failure. He apparently at that time also had pulmonary edema. He was actually seen by Dr. Nazario but Dr. Nazario does not see consults in the ICU at this time, so we were asked to see the patient. Anyway, the patient was admitted to the floor, but apparently developed worsening respiratory status. The patient was quite hypoxemic. The patient also was quite tachycardic. For that reason, the patient was asked to be evaluated by the A- Team. The A-team saw the patient, placed the patient on BiPAP, gave the patient some Lasix and called me. We decided to transfer the patient to the ICU. Here in the ICU, he is on BiPAP at 16 and 8 and 50%. His IV is 0.9 at KVO. He appears to be doing better. He has had quite a nice urine output with that 40 of Lasix IV push given. Also, it appears that the BiPAP is helping to reduce preload. Chest x-ray today as he is admitted to the ICU, compared to the x-ray on admission shows worsening diffuse bilateral infiltrates which could be either fluid overload and/or pneumonia. Unfortunately, the patient is somewhat lethargic and is unable to give any history at this time. A blood gas was not unreasonable. CURRENT MEDICATIONS: His medications included Symbicort, Depakote, Dulcolax, calcium carbonate, milk of magnesia, Flomax, Tylenol, iron, folic acid, Lasix, Imdur, lactobacillus, levothyroxine, Mag-Ox, Singulair, Fleet's enema, potassium chloride, ranitidine, Tegretol, Synthroid, prednisone with a taper, DuoNeb, metoprolol, Paxil, aspirin, sublingual nitroglycerin, gabapentin, and vancomycin oral solution for previous episode of C difficile colitis. ALLERGIES: INCLUDE PHENOBARBITAL AND INFLUENZA VACCINE. MEDICAL HISTORY: Positive for atrial fibrillation, adenocarcinoma of the colon, angina, COPD, CVA, GERD, GI bleed, hyperlipidemia, hypertension, myocardial infarction, chronic kidney disease, seizure disorder, squamous cell carcinoma of the left upper lobe, gastric ulcer disease, and GI bleed. The patient also apparently has a history of kidney stones. PAST SURGICAL HISTORY: Surgical history includes left upper lobectomy for presumed lung cancer squamous cell type, as well as laparoscopic sigmoid colectomy for adenocarcinoma of the colon. Other surgical history includes left hand surgery, bilateral cataract exposure, colonoscopy, bronchoscopy with biopsy, pneumothorax, chest tube insertion, and the aforementioned left upper lobe wedge resection. SOCIAL HISTORY: Positive for previous tobacco use. Denies alcohol or illicit drug use. FAMILY HISTORY: Positive for CVA and cancer. REVIEW OF SYSTEMS: Cannot be obtained. The patient is very lethargic. According to the nurse, he was complaining primarily of being short of breath and feeling profoundly weak. The other systems are reviewed but are negative. Again, because of his mental status, I can not get a complete review of systems. PHYSICAL EXAMINATION: VITAL SIGNS: Current vital signs are reviewed. Temperature 98.4, heart rate is now 115. Respiratory rate about 28-32 breaths per minute. Blood pressure is 188/89, mean arterial pressure is 122 and saturations on the BiPAP at 16 and 8 50% are 99%. He appears more stable now on BiPAP than he did prior according to A-team response nurse. He still is unable to give verbal responses to questions. HEENT examination is grossly unremarkable. BiPAP mask in place. NECK: Supple. Full range of motion. No adenopathy. Neck veins are flat. CARDIOVASCULAR examination reveals tachycardia. It is irregular. Heart rate about 115 to 120 beats per minute. S1, S2 normal. No distinct murmur noted. Heart sounds are distant. LUNGS: Some bibasilar crackles. There is a few scattered rhonchi. Breath sounds are equal but diminished throughout. Diffuse mild wheezes are also noted. ABDOMEN: Soft. Bowel sounds are heard. EXTREMITIES are intact. Mild edema noted. SKIN without rash. NEUROLOGIC examination is difficult to assess. He is very lethargic and somnolent. LAB DATA: Reviewed. White count 19.6, hemoglobin 9.8, hematocrit 34.8, platelet count 335,000. Blood gas on 50% shows a pO2 of 100, pCO2 of 27, pH 7.47. This is consistent with a respiratory alkalosis and mild metabolic acidosis. Sodium 137, potassium 5, chloride 101, CO2 17. Anion gap is 19, BUN and creatinine are 19 and 0.95. Electrolytes are consistent with anion gap metabolic acidosis. Calcium 8.3. The rest of the labs look okay. Urine is negative. Occult blood was negative. X-RAY: Chest x-ray shows worsening diffuse bilateral infiltrates which may relate to underlying pneumonia and/or heart failure. Medications are reviewed. ASSESSMENT: 1. Acute hypoxemic respiratory failure requiring BiPAP therapy and transferred to the ICU, likely multifactorial in part related to underlying fluid overload/heart failure, atrial fibrillation/RVR, and possible pneumonia. Also, chronic obstructive pulmonary disease exacerbation would have to be considered. 2. History of chronic atrial fibrillation. 3. History of adenocarcinoma of the colon, status post laparoscopic sigmoid colectomy. 4. Angina pectoris. 5. Chronic obstructive pulmonary disease from previous heavy tobacco use. 6. History of cerebrovascular accident. 7. Gastroesophageal reflux disease. 8. History of gastrointestinal bleed. 9. Hyperlipidemia. 10.History of hypertension. 11.Myocardial infarction. 12.Seizure disorder. 13.Chronic kidney disease. 14.Squamous cell carcinoma of the left upper lobe, status post wedge resection. 15.Multiple other medical problems and comorbidities. PLAN: Medications are reviewed. Additional recommendations and suggestions are forthcoming. Currently, the patient is relatively stable. We will continue to follow closely. No additional recommendations are made. Prognosis is guarded given his multitude of medical problems. Unnecessary medications to be discontinued. Head of bed the patient remain elevated. We will make sure he gets Lasix. We will make sure he is on antibiotics. He will stay on BiPAP currently. MMODL / IJN: [id number] / [facility] HEALTHAleksander
--- NOTE | 2018-11-04 16:44 | P.CONS ---
History of Present Illness - Reason for Consult Consult date: 11/04/18 - Chief Complaint shortness of breath - History of Present Illness 68-year-old male presents to the emergency center from the extended care facility with increasing weakness and increasing shortness of breath. The patient is known to the facility that he was recently discharged which point in time he was having difficulty with abdominal pain and frequent diarrhea. Workup revealed evidence of clostridium difficile colitis. And he was discharged back to the extended care facility on oral vancomycin therapy appropriately. The patient has multiple underlying medical issues which includes coronary artery disease, COPD and history of stroke. During his recent hospital stay he did have ongoing cardiac issues apparently with atrial fibrillation with rapid ventricular response and heart failure. At admission the patient was weak and ill however rapidly deteriorated and required a rapid response evaluation. With evidence of respiratory failure and was transferred to the intensive care unit and treated with BiPAP. The patient is now feeling somewhat better but is still weak and ill. He has less short of breath. He's denying discomforts in his chest. He relates his abdominal discomfort and diarrhea have improved Review of Systems HEENT patient denies sinus or mouth discomfort. No dysphagia. No oral pain. No neck stiffness or lymphadenopathy Lungs as per the history of present illness significant shortness of breath but denies hemoptysis or much cough Heart patient denies chest pain or pressure. He is not having dyspnea on exertion, orthopnea, or syncope Abdomen patient denies abdominal pain, denies nausea vomiting constipation or diarrhea. Denies hematemesis melena or hematochezia Extremities patient denies pain or swelling to the upper extremities. Patient as per the history of present illness has difficulties with the ulcerations to the bilateral heels but does not have ongoing difficulties with edema Neuro patient denies dizziness, or new deficits Past Medical History Past Medical History: Atrial Fibrillation, Cancer, Chest Pain / Angina, COPD, CVA/TIA, GERD/Reflux, GI Bleed, Hyperlipidemia, Hypertension, Myocardial Infarction (NH), Musculoskeletal Disorder, Renal Disease, Seizure Disorder Additional Past Medical History / Comment(s): colonoscopy then laparoscopic sigmoid colectomy for adenocarcinoma was performed on 07/19/14. Other HX: colon cancer found during colonoscopy-polyp which was adenocarcinoma, SQUAMOUS CELL CARCINOMA LT UPPER LOBE. ULCER; EPILEPTIC - STATES LAST SEIZURE PREV TO 1994; CVA - AFFECTS SPEECH/able to print but not write in cursive. UNABLE TO COMPLETELY CLOSE LEFT HAND R/T hx of LARGE LACERATION. HX OF RT HIP DISORDER, WORE CAST, THEN BRACE FOR 2 YRS, chronic low back pain, renal cysts and kidney stones, GI bleed associated with anticoaulation. Has home O2 which he uses when necessary Last Myocardial Infarction Date:: patient reports 19 years ago History of Any Multi-Drug Resistant Organisms: None Reported, C-DIFF Year Discovered:: 10/23/18 MDRO Source:: stool Past Surgical History: Orthopedic Surgery Additional Past Surgical History / Comment(s): 07/19/14 Laparoscopic sigmoid colectomy. LEFT HAND SX, EXC VILMA CATARACTS; COLONOSCOPY 05/26/14.BRONCH/BX- PNUEMOTHORAX/CHEST TUBE /WEDGE RESECTION TUMOR LT UPPER LOBE. Past Anesthesia/Blood Transfusion Reactions: No Reported Reaction Past Psychological History: No Psychological Hx Reported Additional Psychological History / Comment(s): PT HAS BEEN A [facility] SINCE DISCHARGE FROM [facility] IN [facility] [place] 2016. STATED HE USES A CANE AND 1 TO ASSIST. O2 WHEN NEEDED. . No experience. No international travel Smoking Status: Former smoker Past Alcohol Use History: None Reported Additional Past Alcohol Use History / Comment(s): STARTED SMOKING AT AGE 12 SMOKED 4 PPD. QUIT 2006 Past Drug Use History: None Reported - Past Family History Father Family Medical History: CVA/TIA Mother Family Medical History: Cancer Medications and Allergies Home Medications and Allergies Comment(s): Current Medications Acetaminophen (Tylenol Tab) 650 mg PO Q6HR PRN PRN Reason: Mild Pain or Fever > 100.5 Last Admin: 11/04/18 02:48 Dose: 650 mg Documented by: Acetaminophen (Tylenol Tab) 650 mg PO Q6H PRN PRN Reason: Pain Carbamazepine (Tegretol) 200 mg PO BID [facility] Last Admin: 11/04/18 08:48 Dose: 200 mg Documented by: Divalproex Sodium (Depakote) 1,000 mg PO BID@0800,1700 [facility] Last Admin: 11/04/18 08:48 Dose: 1,000 mg Documented by: Doxycycline Hyclate 100 mg/ (Sodium Chloride) 100 mls @ 100 mls/hr IVPB Q12HR [facility] Naloxone HCl (Narcan) 0.2 mg IV Q2M PRN PRN Reason: Opioid Reversal Pantoprazole Sodium (Protonix) 40 mg IV DAILY [facility] Last Admin: 11/04/18 08:48 Dose: 40 mg Documented by: Vancomycin HCl (Vancomycin Oral Solution) 250 mg PO Q6HR [facility] Home Medications Medication Instructions Recorded Confirmed Type Budesonide-Formot 160-4.5 Mcg 2 puff INHALATION RT-BID 05/22/14 11/03/18 History [Symbicort 160-4.5 Mcg Inhaler] Divalproex [Depakote] 1,000 mg PO BID@0800,1700 05/22/14 11/03/18 History Ipratropium-Albuterol Nebulize 3 ml IH RT-QID neb 03/22/17 11/03/18 Rx [Duoneb 0.5 mg-3 mg/3 ml Soln] Metoprolol Succinate (ER) [Toprol 25 mg PO DAILY tab 03/22/17 11/03/18 Rx XL] PARoxetine [Paxil] 10 mg PO DAILY tab 03/22/17 11/03/18 Rx Bisacodyl [Dulcolax] 10 mg RECTAL DAILY PRN 04/03/17 11/03/18 History Calcium Carbonate [Tums] 500 mg PO Q8H PRN 04/03/17 11/03/18 History Magnesium Hydroxide [Milk of 2,400 mg PO DAILY PRN 04/03/17 11/03/18 History Magnesia] Tamsulosin [Flomax] 0.4 mg PO QAM 04/03/17 11/03/18 History Aspirin 81 mg PO DAILY chew 04/05/17 11/03/18 Rx Nitroglycerin Sl Tabs [Nitrostat] 0.4 mg SUBLINGUAL Q5M PRN #20 tab 04/05/17 11/03/18 Rx Acetaminophen [Tylenol] 650 mg PO Q6H PRN 10/20/18 11/03/18 History Ferrous Sulfate [Feosol] 325 mg PO DAILY 10/20/18 11/03/18 History Folic Acid 1 mg PO DAILY@1700 10/20/18 11/03/18 History Furosemide [Lasix] 40 mg PO DAILY 10/20/18 11/03/18 History Isosorbide Mononitrate ER [Imdur] 30 mg PO DAILY@0800 10/20/18 11/03/18 History L.acidoph,Paracasei, B.lactis 1 cap PO DAILY 10/20/18 11/03/18 History [Probiotic] Levothyroxine Sodium [Synthroid] 50 mcg PO DAILY@0600 10/20/18 11/03/18 History Magnesium Oxide 400 mg PO DAILY 10/20/18 11/03/18 History Montelukast [Singulair] 10 mg PO DAILY 10/20/18 11/03/18 History Na Phos,M-B/Na Phos,Di-Ba [Fleet 133 ml RECTAL DAILY PRN 10/20/18 11/03/18 History Adult] Potassium Chloride ER [K-Dur 20] 20 meq PO DAILY 10/20/18 11/03/18 History Ranitidine HCl 150 mg PO BID@0800,1700 10/20/18 11/03/18 History carBAMazepine [TEGretol] 200 mg PO BID 10/20/18 11/03/18 History Gabapentin [Neurontin] 100 mg PO DAILY PRN #7 capsule 10/30/18 11/03/18 Rx Vancomycin Oral Solution 250 mg PO Q6HR #5 day 10/30/18 11/03/18 Rx Levothyroxine Sodium [Synthroid] 50 mcg PO DAILY 11/03/18 11/03/18 History predniSONE See Taper 11/03/18 History Allergies Allergy/AdvReac Type Severity Reaction Status Date / Time phenobarbital Allergy Unknown Hallucinati Verified 11/03/18 16:56 ons Influenza Virus Vaccines Allergy Unknown Verified 11/03/18 16:56 Physical Exam Vitals: Vital Signs Temp Pulse Pulse Resp BP BP BP 11/04/18 11:30 126 H 48 H 188/89 11/04/18 11:25 156 H 46 H 200/100 11/04/18 11:20 152 H 44 H 226/102 11/04/18 11:10 152 H 42 H 177/85 11/04/18 08:00 98.4 F 100 18 143/89 11/04/18 03:11 97.7 F 112 H 22 157/89 11/03/18 23:42 97.9 F 108 H 17 125/84 11/03/18 21:53 98.2 F 103 H 18 123/60 11/03/18 20:00 92 17 11/03/18 18:40 95 18 94/49 11/03/18 17:10 95 18 95/62 Pulse Ox 11/04/18 11:30 99 11/04/18 11:25 97 11/04/18 11:20 100 11/04/18 11:10 96 11/04/18 08:00 96 11/04/18 03:11 95 11/03/18 23:42 98 11/03/18 21:53 99 11/03/18 20:00 11/03/18 18:40 99 11/03/18 17:10 100 Intake and Output 11/04/18 11/04/18 11/04/18 06:59 14:59 22:59 Intake Total 240 Output Total 550 Balance -550 240 Intake: Oral 240 Output: Urine 550 Other: Voiding Method Urinal Urinal # Voids 1 1 # Bowel Movements 1 Weight 70 kg HEENT: Anicteric, conjunctiva are pink and moist, nasal or oral mucosa are without lesion. The neck is supple without lymphadenopathy or thyromegaly. No oral thrush is noted. Lungs: symmetrical air entry is noted, coarse crackles at the lung love decreased breath sounds to the bilateral bases Heart: irregular without murmur click or rub Abdomen: Positive bowel sounds, soft minimal tenderness in the lower quadrants, there is no palpable masses or organomegaly. Abdomen is without guarding or re bound. Extremities:Upper extremities reveal evidence of equal pulses, no lesions are seen, no petechiae or telangiectasia. The lower extremities have no significant edema, peripheral pulses were 2+ and symmetric, no lesions or ulcerations are seen. Capillary refill was brisk. Skin: Intact without significant rash or lesions. Neuro:the patient is arousable and follows simple commands answer simple questions is very fatigued Musculoskeletal: Patient is bedbound No acute joint effusions are noted. Lymph: No cervical, supraclavicular, axillary, epitrochlear, or inguinal lymphadenopathy was noted. Results CBC & Chem 7: 11/04/18 11:37 11/04/18 11:37 Labs: Abnormal Lab Results - Last 24 Hours (Table) 11/03/18 11/03/18 11/04/18 Range/Units 15:55 17:20 11:37 WBC 19.0 H (3.8-10.6) k/uL RBC 2.52 L 3.25 L (4.30-5.90) m/uL Hgb 7.8 L 9.8 L D (13.0-17.5) gm/dL Hct 25.4 L 34.8 L (39.0-53.0) % MCV 100.8 H 107.0 H D (80.0-100.0) fL MCHC 30.8 L 28.2 L (31.0-37.0) g/dL RDW 27.6 H 27.5 H (11.5-15.5) % Neutrophils # 8.8 H (1.3-7.7) k/uL Neutrophils # (Manual) 15.30 H (1.3-7.7) k/uL Lymphocytes # 0.8 L (1.0-4.8) k/uL Monocytes # (Manual) 1.33 H (0-1.0) k/uL Metamyelocytes # (Man) 0.19 H (0) k/uL Myelocytes # (Manual) 0.19 H (0) k/uL Nucleated RBCs 3 H (0-0) /100 WBC Macrocytosis Marked A Marked A ABG pH (7.35-7.45) ABG pCO2 (35-45) mmHg ABG HCO3 (21-25) mmol/L ABG O2 Saturation (94-97) % Carbon Dioxide (22-30) mmol/L Glucose (74-99) mg/dL POC Glucose (mg/dL) (75-99) mg/dL Plasma Lactic Acid Jhonny (0.7-2.0) mmol/L Calcium (8.4-10.2) mg/dL ALT (21-72) U/L Total Protein (6.3-8.2) g/dL Urine Protein 1+ H (Negative) Hyaline Casts 3 H (0-2) /lpf Urine Mucus Rare H (None) /hpf 11/04/18 11/04/18 11/04/18 Range/Units 11:37 11:38 12:04 WBC (3.8-10.6) k/uL RBC (4.30-5.90) m/uL Hgb (13.0-17.5) gm/dL Hct (39.0-53.0) % MCV (80.0-100.0) fL MCHC (31.0-37.0) g/dL RDW (11.5-15.5) % Neutrophils # (1.3-7.7) k/uL Neutrophils # (Manual) (1.3-7.7) k/uL Lymphocytes # (1.0-4.8) k/uL Monocytes # (Manual) (0-1.0) k/uL Metamyelocytes # (Man) (0) k/uL Myelocytes # (Manual) (0) k/uL Nucleated RBCs (0-0) /100 WBC Macrocytosis ABG pH 7.47 H (7.35-7.45) ABG pCO2 27 L (35-45) mmHg ABG HCO3 20 L (21-25) mmol/L ABG O2 Saturation 98.4 H (94-97) % Carbon Dioxide 17 L (22-30) mmol/L Glucose 116 H (74-99) mg/dL POC Glucose (mg/dL) 108 H (75-99) mg/dL Plasma Lactic Acid Jhonny (0.7-2.0) mmol/L Calcium 8.3 L (8.4-10.2) mg/dL ALT 12 L (21-72) U/L Total Protein 6.2 L (6.3-8.2) g/dL Urine Protein (Negative) Hyaline Casts (0-2) /lpf Urine Mucus (None) /hpf 11/04/18 Range/Units 12:44 WBC (3.8-10.6) k/uL RBC (4.30-5.90) m/uL Hgb (13.0-17.5) gm/dL Hct (39.0-53.0) % MCV (80.0-100.0) fL MCHC (31.0-37.0) g/dL RDW (11.5-15.5) % Neutrophils # (1.3-7.7) k/uL Neutrophils # (Manual) (1.3-7.7) k/uL Lymphocytes # (1.0-4.8) k/uL Monocytes # (Manual) (0-1.0) k/uL Metamyelocytes # (Man) (0) k/uL Myelocytes # (Manual) (0) k/uL Nucleated RBCs (0-0) /100 WBC Macrocytosis ABG pH (7.35-7.45) ABG pCO2 (35-45) mmHg ABG HCO3 (21-25) mmol/L ABG O2 Saturation (94-97) % Carbon Dioxide (22-30) mmol/L Glucose (74-99) mg/dL POC Glucose (mg/dL) (75-99) mg/dL Plasma Lactic Acid Jhonny 2.5 H* (0.7-2.0) mmol/L Calcium (8.4-10.2) mg/dL ALT (21-72) U/L Total Protein (6.3-8.2) g/dL Urine Protein (Negative) Hyaline Casts (0-2) /lpf Urine Mucus (None) /hpf Laboratory Results WBC 19.0 k/uL (3.8-10.6) H 11/04/18 11:37 RBC 3.25 m/uL (4.30-5.90) L 11/04/18 11:37 Hgb 9.8 gm/dL (13.0-17.5) L D 11/04/18 11:37 Hct 34.8 % (39.0-53.0) L 11/04/18 11:37 MCV 107.0 fL (80.0-100.0) H D 11/04/18 11:37 MCH 30.1 pg (25.0-35.0) 11/04/18 11:37 MCHC 28.2 g/dL (31.0-37.0) L 11/04/18 11:37 RDW 27.5 % (11.5-15.5) H 11/04/18 11:37 Plt Count 335 k/uL (150-450) 11/04/18 11:37 Neutrophils % 85 % 11/03/18 15:55 Neutrophils % (Manual) 79 % 11/04/18 11:37 Band Neutrophils % 2 % 11/04/18 11:37 Lymphocytes % 8 % 11/03/18 15:55 Lymphocytes % (Manual) 11 % 11/04/18 11:37 Monocytes % 7 % 11/03/18 15:55 Monocytes % (Manual) 7 % 11/04/18 11:37 Eosinophils % 0 % 11/03/18 15:55 Eosinophils % (Manual) 1 % 11/04/18 11:37 Basophils % 0 % 11/03/18 15:55 Metamyelocytes % 1 % 11/04/18 11:37 Myelocytes % 1 % 11/04/18 11:37 Neutrophils # 8.8 k/uL (1.3-7.7) H 11/03/18 15:55 Neutrophils # (Manual) 15.30 k/uL (1.3-7.7) H 11/04/18 11:37 Lymphocytes # 0.8 k/uL (1.0-4.8) L 11/03/18 15:55 Lymphocytes # (Manual) 2.09 k/uL (1.0-4.8) 11/04/18 11:37 Monocytes # 0.7 k/uL (0-1.0) 11/03/18 15:55 Monocytes # (Manual) 1.33 k/uL (0-1.0) H 11/04/18 11:37 Eosinophils # 0.0 k/uL (0-0.7) 11/03/18 15:55 Eosinophils # (Manual) 0.19 k/uL (0-0.7) 11/04/18 11:37 Basophils # 0.0 k/uL (0-0.2) 11/03/18 15:55 Metamyelocytes # (Man) 0.19 k/uL (0) H 11/04/18 11:37 Myelocytes # (Manual) 0.19 k/uL (0) H 11/04/18 11:37 Nucleated RBCs 3 /100 WBC (0-0) H 11/04/18 11:37 Manual Slide Review Performed 11/04/18 11:37 Polychromasia Present 11/04/18 11:37 Hypochromasia Marked 11/04/18 11:37 Poikilocytosis Slight 11/04/18 11:37 Anisocytosis Marked 11/04/18 11:37 Microcytosis Slight 11/03/18 15:55 Macrocytosis Marked A 11/04/18 11:37 Ovalocytes Present 11/03/18 15:55 Fragmented RBCs Present 11/04/18 11:37 PT 11.6 sec (9.0-12.0) 11/03/18 15:55 INR 1.1 (<1.2) 11/03/18 15:55 APTT 25.5 sec (22.0-30.0) 11/03/18 15:55 Sample Site LRAD 11/04/18 12:04 ABG pH 7.47 (7.35-7.45) H 11/04/18 12:04 ABG pCO2 27 mmHg (35-45) L 11/04/18 12:04 ABG pO2 100 mmHg (83-108) 11/04/18 12:04 ABG HCO3 20 mmol/L (21-25) L 11/04/18 12:04 ABG Total CO2 21 mmol/L (19-24) 11/04/18 12:04 ABG O2 Saturation 98.4 % (94-97) H 11/04/18 12:04 ABG Base Excess -3.9 mmol/L 11/04/18 12:04 Oliver Test Yes 11/04/18 12:04 FiO2 50 % 11/04/18 12:04 Sodium 137 mmol/L (137-145) 11/04/18 11:37 Potassium 5.0 mmol/L (3.5-5.1) 11/04/18 11:37 Chloride 101 mmol/L (98-107) 11/04/18 11:37 Carbon Dioxide 17 mmol/L (22-30) L 11/04/18 11:37 Anion Gap 19 mmol/L 11/04/18 11:37 BUN 19 mg/dL (9-20) 11/04/18 11:37 Creatinine 0.95 mg/dL (0.66-1.25) 11/04/18 11:37 Est GFR (CKD-EPI)AfAm >90 (>60 ml/min/1.73 sqM) 11/04/18 11:37 Est GFR (CKD-EPI)NonAf 81 (>60 ml/min/1.73 sqM) 11/04/18 11:37 Glucose 116 mg/dL (74-99) H 11/04/18 11:37 POC Glucose (mg/dL) 108 mg/dL (75-99) H 11/04/18 11:38 POC Glu Head Charger ID 11/04/18 11:38 Lactic Ac Sepsis Rflx Y 11/03/18 16:26 Plasma Lactic Acid Jhonny 2.5 mmol/L (0.7-2.0) H* 11/04/18 12:44 Calcium 8.3 mg/dL (8.4-10.2) L 11/04/18 11:37 Magnesium 1.7 mg/dL (1.6-2.3) 11/03/18 15:55 Total Bilirubin 1.3 mg/dL (0.2-1.3) 11/04/18 11:37 AST 22 U/L (17-59) 11/04/18 11:37 ALT 12 U/L (21-72) L 11/04/18 11:37 Alkaline Phosphatase 39 U/L (38-126) 11/04/18 11:37 Troponin I <0.012 ng/mL (0.000-0.034) 11/03/18 15:55 NT-Pro-B Natriuret Pep 30964 pg/mL 11/04/18 11:37 Total Protein 6.2 g/dL (6.3-8.2) L 11/04/18 11:37 Albumin 3.6 g/dL (3.5-5.0) 11/04/18 11:37 TSH 1.290 mIU/L (0.465-4.680) 11/03/18 15:55 Urine Color Yellow 11/03/18 17:20 Urine Appearance Clear (Clear) 11/03/18 17:20 Urine pH 6.5 (5.0-8.0) 11/03/18 17:20 Ur Specific [place] 1.022 (1.001-1.035) 11/03/18 17:20 Urine Protein 1+ (Negative) H 11/03/18 17:20 Urine Glucose (UA) Negative (Negative) 11/03/18 17:20 Urine Ketones Negative (Negative) 11/03/18 17:20 Urine Blood Negative (Negative) 11/03/18 17:20 Urine Nitrite Negative (Negative) 11/03/18 17:20 Urine Bilirubin Negative (Negative) 11/03/18 17:20 Urine Urobilinogen <2.0 mg/dL (<2.0) 11/03/18 17:20 Ur Leukocyte Esterase Negative (Negative) 11/03/18 17:20 Urine RBC <1 /hpf (0-5) 11/03/18 17:20 Urine WBC 1 /hpf (0-5) 11/03/18 17:20 Hyaline Casts 3 /lpf (0-2) H 11/03/18 17:20 Urine Mucus Rare /hpf (None) H 11/03/18 17:20 Stool Occult Blood Negative (Negative) 11/03/18 17:30 Assessment and Plan (1) C. difficile colitis Narrative/Plan: 68-year-old male that has multiple medical troubles presents from extended care facility with increasing weakness and shortness of breath. Shortly after admission his respiratory status further worsened. Imaging studies are reviewed and patient has evidence of significant infiltrates bilaterally. The patient is receiving diuresis and was placed on BiPAP therapy and is started to have i mprovement.the patient has not had fever but has had a significant increase of his leukocytosis since admission. This however appears to be stress related and is occurred upon review of the history multiple times in the past. It is unlikely that he has a significant pneumonia at this time is much more likely that he has acute exacerbation Of COPD with acute on chronic systolic heart failure with pulmonary edema. Would limit antibiotic therapy is much as possible given his recent history of C. difficile colitis. Oral vancomycin will continue for now. Antimicrobial therapy based on prior cultures will be with doxycycline IV 100 mg twice a day for now with overall goal to limit antimicrobial therapy. Cultures were further help direct course of therapy. Current Visit: No Status: Acute Code(s): A04.72 - ENTEROCOLITIS D/T CLOSTRIDIUM DIFFICILE, NOT SPCF RECUR SNOMED Code(s): 507336054 (2) COPD (chronic obstructive pulmonary disease) Current Visit: No Status: Acute Code(s): J44.9 - CHRONIC OBSTRUCTIVE PULMONARY DISEASE, UNSPECIFIED SNOMED Code(s): 14235566 (3) Acute pulmonary edema with congestive heart failure Current Visit: Yes Status: Acute Code(s): I50.1 - LEFT VENTRICULAR FAILURE, UNSPECIFIED SNOMED Code(s): 32106488
[2018-11-04] MEDS ORDERED: CEFEPIME 2 GM in SODIUM CHLORIDE 0.9% 100 ML IVPB SCH (17:00)
[2018-11-04] MEDS ORDERED: CHERRY FLAVOR 60 ML BOTTLE PO ONE (17:45)
[2018-11-04] MEDS: VANCOMYCIN ORAL SOLUTION 250 MG/5 ML BOTTLE PO SCH (18:23)
--- NOTE | 2018-11-04 18:28 | P.HPIM ---
History of Present Illness H&P Date: 11/04/18 Chief Complaint: Generalized weakness and not feeling well Mr. Davila is a 68-year-old male with a past medical history of GERD, hypertension, hyperlipidemia, coronary artery disease, seizure disorder, who is a resident of [facility] brought in by the EMS for weakness. Patient was recently admitted to the hospital earlier this month for hypoxemic respiratory failure and C. diff colitis. Patient was discharged on antibiotics. But for the past couple of days patient has generalized weakness and fatigue and he also had a fever then he was brought into the hospital. Overnight the patient received a dose of vancomycin and cefepime and was admitted to the floors with IV fluids. This morning patient was developed acute worsening of his respiratory status and he was tachycardic. So 18 minus:, He was started on BiPAP. As he was having diffuse crackles he was given a dose of Lasix and his IV fluids were stopped. Later on patient was transferred to the ICU. In the ICU patient was started on BiPAP. The patient had a chest x-ray done which was showing pulmonary vascular congestion along with diffuse bilateral infiltrates. Dr. Cortez from [place] evaluated the patient and changed his antibiotics to doxycycline. He was also started on by mouth vancomycin as he had to complete the dose for his C. diff colitis from last visit. Currently the patient is in the ICU, he is put on a nasal cannula at high flow oxygen of 12 L. Patient appears to be mildly drowsy. But has been responding appropriately to my questions. Patient states that he still has some respiratory distress. Denies having any chest pain or palpitations. He states that after Lasix he felt much better in terms of his breathing status. All 13 review of systems are done and negative except for the ones mentioned above Past Medical History Past Medical History: Atrial Fibrillation, Cancer, Chest Pain / Angina, COPD, CVA/TIA, GERD/Reflux, GI Bleed, Hyperlipidemia, Hypertension, Myocardial Infarction ([place]), Musculoskeletal Disorder, Renal Disease, Seizure Disorder Additional Past Medical History / Comment(s): colonoscopy then laparoscopic sigmoid colectomy for adenocarcinoma was performed on 07/19/14. Other HX: colon cancer found during colonoscopy-polyp which was adenocarcinoma, SQUAMOUS CELL CARCINOMA LT UPPER LOBE. ULCER; EPILEPTIC - STATES LAST SEIZURE PREV TO 1994; CVA - AFFECTS SPEECH/able to print but not write in cursive. UNABLE TO COMPLETELY CLOSE LEFT HAND R/T hx of LARGE LACERATION. HX OF RT HIP DISORDER, WORE CAST, THEN BRACE FOR 2 YRS, chronic low back pain, renal cysts and kidney stones, GI bleed associated with anticoaulation. Has home O2 which he uses when necessary Last Myocardial Infarction Date:: patient reports 19 years ago History of Any Multi-Drug Resistant Organisms: None Reported, C-DIFF Date of last positivie culture/infection: 10/23/18 MDRO Source:: stool Past Surgical History: Orthopedic Surgery Additional Past Surgical History / Comment(s): 07/19/14 Laparoscopic sigmoid colectomy. LEFT HAND SX, EXC VILMA CATARACTS; COLONOSCOPY 05/26/14.BRONCH/BX- PNUEMOTHORAX/CHEST TUBE /WEDGE RESECTION TUMOR LT UPPER LOBE. Past Anesthesia/Blood Transfusion Reactions: No Reported Reaction Past Psychological History: No Psychological Hx Reported Additional Psychological History / Comment(s): PT HAS BEEN A [employer] SINCE DISCHARGE FROM [facility] IN [facility] 2016. STATED HE USES A CANE AND 1 TO ASSIST. O2 WHEN NEEDED. . No experience. No international travel Smoking Status: Former smoker Past Alcohol Use History: None Reported Additional Past Alcohol Use History / Comment(s): STARTED SMOKING AT AGE 12 SMOKED 4 PPD. QUIT 2006 Past Drug Use History: None Reported - Past Family History Father Family Medical History: CVA/TIA Mother Family Medical History: Cancer Medications and Allergies Home Medications Medication Instructions Recorded Confirmed Type Budesonide-Formot 160-4.5 Mcg 2 puff INHALATION RT-BID 05/22/14 11/03/18 History [Symbicort 160-4.5 Mcg Inhaler] Divalproex [Depakote] 1,000 mg PO BID@0800,1700 05/22/14 11/03/18 History Ipratropium-Albuterol Nebulize 3 ml IH RT-QID neb 03/22/17 11/03/18 Rx [Duoneb 0.5 mg-3 mg/3 ml Soln] Metoprolol Succinate (ER) [Toprol 25 mg PO DAILY tab 03/22/17 11/03/18 Rx XL] PARoxetine [Paxil] 10 mg PO DAILY tab 03/22/17 11/03/18 Rx Bisacodyl [Dulcolax] 10 mg RECTAL DAILY PRN 04/03/17 11/03/18 History Calcium Carbonate [Tums] 500 mg PO Q8H PRN 04/03/17 11/03/18 History Magnesium Hydroxide [Milk of 2,400 mg PO DAILY PRN 04/03/17 11/03/18 History Magnesia] Tamsulosin [Flomax] 0.4 mg PO QAM 04/03/17 11/03/18 History Aspirin 81 mg PO DAILY chew 04/05/17 11/03/18 Rx Nitroglycerin Sl Tabs [Nitrostat] 0.4 mg SUBLINGUAL Q5M PRN #20 tab 04/05/17 11/03/18 Rx Acetaminophen [Tylenol] 650 mg PO Q6H PRN 10/20/18 11/03/18 History Ferrous Sulfate [Feosol] 325 mg PO DAILY 10/20/18 11/03/18 History Folic Acid 1 mg PO DAILY@1700 10/20/18 11/03/18 History Furosemide [Lasix] 40 mg PO DAILY 10/20/18 11/03/18 History Isosorbide Mononitrate ER [Imdur] 30 mg PO DAILY@0800 10/20/18 11/03/18 History L.acidoph,Paracasei, B.lactis 1 cap PO DAILY 10/20/18 11/03/18 History [Probiotic] Levothyroxine Sodium [Synthroid] 50 mcg PO DAILY@0600 10/20/18 11/03/18 History Magnesium Oxide 400 mg PO DAILY 10/20/18 11/03/18 History Montelukast [Singulair] 10 mg PO DAILY 10/20/18 11/03/18 History Na Phos,M-B/Na Phos,Di-Ba [Fleet 133 ml RECTAL DAILY PRN 10/20/18 11/03/18 History Adult] Potassium Chloride ER [K-Dur 20] 20 meq PO DAILY 10/20/18 11/03/18 History Ranitidine HCl 150 mg PO BID@0800,1700 10/20/18 11/03/18 History carBAMazepine [TEGretol] 200 mg PO BID 10/20/18 11/03/18 History Gabapentin [Neurontin] 100 mg PO DAILY PRN #7 capsule 10/30/18 11/03/18 Rx Vancomycin Oral Solution 250 mg PO Q6HR #5 day 10/30/18 11/03/18 Rx Levothyroxine Sodium [Synthroid] 50 mcg PO DAILY 11/03/18 11/03/18 History predniSONE See Taper 11/03/18 History Allergies Allergy/AdvReac Type Severity Reaction Status Date / Time phenobarbital Allergy Unknown Hallucinati Verified 11/03/18 16:56 ons Influenza Virus Vaccines Allergy Unknown Verified 11/03/18 16:56 Physical Exam Vitals: Vital Signs Temp Pulse Pulse Resp BP BP BP 11/04/18 18:00 106 H 25 H 105/71 11/04/18 17:45 98 24 109/73 11/04/18 17:30 98 23 105/74 11/04/18 17:15 88 22 104/73 11/04/18 17:00 107 H 22 122/68 11/04/18 16:45 104 H 22 126/76 11/04/18 16:30 106 H 14 98/66 11/04/18 16:15 96 27 H 100/85 11/04/18 16:00 98.4 F 106 H 22 80/61 11/04/18 15:45 109 H 15 105/61 11/04/18 15:30 98 23 100/71 11/04/18 15:15 100 31 H 109/74 11/04/18 15:00 32 H 88/58 11/04/18 14:45 116 H 17 97/73 11/04/18 14:30 106 H 29 H 113/63 11/04/18 14:15 110 H 26 H 70/59 11/04/18 14:00 121 H 15 101/71 11/04/18 13:45 105 H 32 H 92/64 11/04/18 13:30 112 H 40 H 116/82 11/04/18 13:15 103 H 29 H 119/66 11/04/18 13:00 118 H 36 H 143/63 11/04/18 12:45 111 H 34 H 130/114 11/04/18 12:30 104 H 40 H 120/78 11/04/18 12:15 131 H 44 H 120/53 11/04/18 12:00 100.3 F H 117 H 45 H 145/132 11/04/18 11:45 134 H 48 H 113/91 11/04/18 11:40 147 H 37 H 11/04/18 11:30 126 H 48 H 188/89 11/04/18 11:25 156 H 46 H 200/100 11/04/18 11:20 152 H 44 H 226/102 11/04/18 11:10 152 H 42 H 177/85 11/04/18 08:00 98.4 F 100 18 143/89 11/04/18 03:11 97.7 F 112 H 22 157/89 11/03/18 23:42 97.9 F 108 H 17 125/84 11/03/18 21:53 98.2 F 103 H 18 123/60 11/03/18 20:00 92 17 11/03/18 18:40 95 18 94/49 Pulse Ox 11/04/18 18:00 99 11/04/18 17:45 98 11/04/18 17:30 100 11/04/18 17:15 98 11/04/18 17:00 98 11/04/18 16:45 100 11/04/18 16:30 87 L 11/04/18 16:15 86 L 11/04/18 16:00 99 11/04/18 15:45 99 11/04/18 15:30 98 11/04/18 15:15 98 11/04/18 15:00 99 11/04/18 14:45 98 11/04/18 14:30 11/04/18 14:15 11/04/18 14:00 79 L 11/04/18 13:45 11/04/18 13:30 82 L 11/04/18 13:15 11/04/18 13:00 11/04/18 12:45 11/04/18 12:30 100 11/04/18 12:15 98 11/04/18 12:00 98 11/04/18 11:45 11/04/18 11:40 11/04/18 11:30 99 11/04/18 11:25 97 11/04/18 11:20 100 11/04/18 11:10 96 11/04/18 08:00 96 11/04/18 03:11 95 11/03/18 23:42 98 11/03/18 21:53 99 11/03/18 20:00 11/03/18 18:40 99 Intake and Output 11/04/18 11/04/18 11/04/18 06:59 14:59 22:59 Intake Total 300 330 Output Total 550 675 850 Balance -171 -366 -788 Intake: IV 60 80 .9 20 ml/hour 60 80 Intake, IV Titration 250 Amount Vancomycin 1,250 mg In 250 Sodium Chloride 0.9% 250 ml @ 125 mls/hr IVPB Q12H [facility] Rx#:[id number] Oral 240 Output: Urine 550 675 850 Other: Voiding Method Urinal Indwelling Catheter Indwelling Catheter # Voids 1 1 # Bowel Movements 1 Weight 70 kg GEN. APPEARANCE: mild respiratory distress HEENT - no pallor. No icterus. NECK EXAM: normal inspection. Absent: tenderness, meningismus, full ROM, lymphadenopathy RESPIRATORY EXAM: Coarse breath sounds bilaterally. Crackles at the lower lung bases bilaterally CARDIOVASCULAR EXAM: tachycardia GI/ABDOMINAL EXAM: soft, normal bowel sounds. Absent: distended, tenderness, guarding, rebound, rigid EXTREMITIES EXAM: No edema. NEUROLOGICAL EXAM: alert, oriented X3, no focal deficits. Drowsy at times. SKIN EXAM: warm, dry, intact, normal color. Absent: rash Results CBC & Chem 7: 11/04/18 11:37 11/04/18 11:37 Labs: Abnormal Lab Results - Last 24 Hours (Table) 11/04/18 11/04/18 11/04/18 Range/Units 11:37 11:37 11:38 WBC 19.0 H (3.8-10.6) k/uL RBC 3.25 L (4.30-5.90) m/uL Hgb 9.8 L D (13.0-17.5) gm/dL Hct 34.8 L (39.0-53.0) % MCV 107.0 H D (80.0-100.0) fL MCHC 28.2 L (31.0-37.0) g/dL RDW 27.5 H (11.5-15.5) % Neutrophils # (Manual) 15.30 H (1.3-7.7) k/uL Monocytes # (Manual) 1.33 H (0-1.0) k/uL Metamyelocytes # (Man) 0.19 H (0) k/uL Myelocytes # (Manual) 0.19 H (0) k/uL Nucleated RBCs 3 H (0-0) /100 WBC Macrocytosis Marked A ABG pH (7.35-7.45) ABG pCO2 (35-45) mmHg ABG HCO3 (21-25) mmol/L ABG O2 Saturation (94-97) % Carbon Dioxide 17 L (22-30) mmol/L Glucose 116 H (74-99) mg/dL POC Glucose (mg/dL) 108 H (75-99) mg/dL Plasma Lactic Acid Jhonny (0.7-2.0) mmol/L Calcium 8.3 L (8.4-10.2) mg/dL ALT 12 L (21-72) U/L Total Protein 6.2 L (6.3-8.2) g/dL 11/04/18 11/04/18 Range/Units 12:04 12:44 WBC (3.8-10.6) k/uL RBC (4.30-5.90) m/uL Hgb (13.0-17.5) gm/dL Hct (39.0-53.0) % MCV (80.0-100.0) fL MCHC (31.0-37.0) g/dL RDW (11.5-15.5) % Neutrophils # (Manual) (1.3-7.7) k/uL Monocytes # (Manual) (0-1.0) k/uL Metamyelocytes # (Man) (0) k/uL Myelocytes # (Manual) (0) k/uL Nucleated RBCs (0-0) /100 WBC Macrocytosis ABG pH 7.47 H (7.35-7.45) ABG pCO2 27 L (35-45) mmHg ABG HCO3 20 L (21-25) mmol/L ABG O2 Saturation 98.4 H (94-97) % Carbon Dioxide (22-30) mmol/L Glucose (74-99) mg/dL POC Glucose (mg/dL) (75-99) mg/dL Plasma Lactic Acid Jhonny 2.5 H* (0.7-2.0) mmol/L Calcium (8.4-10.2) mg/dL ALT (21-72) U/L Total Protein (6.3-8.2) g/dL Thrombosis Risk Factor Assmnt - Choose All That Apply Each Factor Represents 1 point: Serious lung disease incl. pneumonia (< 1month) Each Risk Factor Represents 2 Points: Age 61-74 years Thrombosis Risk Factor Assessment Total Risk Factor Score: 3 Thrombosis Risk Factor Assessment Level: Moderate Risk Assessment and Plan Assessment: ASSESSMENT Acute hypoxic respiratory failure Acute diastolic congestive heart failure Atrial fibrillation with rapid ventricular rate Chronic atrial fibrillation- not a good candidate for and accommodation due to prior history of bleeding COPD History of sigmoid diverticulitis Recent C. diff infection History of left upper lobe mass with a wedge dissection for squamous cell cancer Coronary artery disease with history of prior [place] GERD Hypertension Hyperlipidemia Chronic seizure disorder PLAN: Patient responded to IV Lasix. His IV fluids have been discontinued. He was given a dose of vancomycin and cefepime, as stated was a suspicion for sepsis and due to his recent hospital stay. Dr. Cortez evaluated the patient changed his antibiotics to doxycycline. He was given by mouth vancomycin for his recent C. diff colitis. Patient does not have active diarrhea currently. Overall patient seems to be improving with BiPAP and IV Lasix. To be continued with the rest of his current medication regimen. Overall prognosis remains guarded. Further recommendations to follow depending on the progress of the patient.
[2018-11-04] MEDS: DOXYCYCLINE 100 MG in SODIUM CHLORIDE 0.9% 100 ML IVPB SCH (21:18)
[2018-11-05] MEDS: VANCOMYCIN ORAL SOLUTION 250 MG/5 ML BOTTLE PO SCH ×4 (00:28→17:26)
[2018-11-05] MEDS: DOXYCYCLINE 100 MG in SODIUM CHLORIDE 0.9% 100 ML IVPB SCH ×3 (00:32→20:22)
[2018-11-05 06:01] LABS: Anisocytosis Marked; Basophils % (A) 0 %; Eosinophils % (A) 1 %; HCT 23.7 % (39.0-53.0); Hypochromasia Marked; Lymphocytes # (A) 0.6 k/uL (1.0-4.8); Lymphocytes % (A) 7 %; MCH 30.9 pg (25.0-35.0); MCV 102.9 fL (80.0-100.0); Macrocytosis Marked; Mean Platelet Volume 7.8; Monocytes # (A) 0.4 k/uL (0-1.0); Monocytes % (A) 5 %; Neutrophils # (A) 6.8 k/uL (1.3-7.7); Neutrophils % (A) 86 %; Poikilocytosis Slight; WBC 7.9 k/uL (3.8-10.6)
[2018-11-05 06:06] LABS: Calcium 8.3 mg/dL (8.4-10.2); Magnesium 1.6 mg/dL (1.6-2.3); Phosphorus 3.3 mg/dL (2.5-4.5); Potassium 3.9 mmol/L (3.5-5.1)
[2018-11-05] MEDS: ACETAMINOPHEN TAB 325 MG TAB PO PRN (06:09)
[2018-11-05 06:10] LABS: HGB 7.1 gm/dL (13.0-17.5); RDW 27.6 % (11.5-15.5)
[2018-11-05 06:11] LABS: Platelet Count 152 k/uL (150-450)
[2018-11-05] MEDS ORDERED: Magnesium Replacement Protocol 1 EACH MISC MISCELLANE PRN (06:20)
[2018-11-05] MEDS ORDERED: Potassium Replacement Protocol 1 EACH MISC MISCELLANE PRN (06:23)
--- NOTE | 2018-11-05 08:41 | XR ---
EXAMINATION TYPE: XR chest 1V portable DATE OF EXAM: 11/05/2018 COMPARISON: Prior chest x-ray 11/04/2018 HISTORY: Abnormal chest x-ray, fluid overload TECHNIQUE: Single frontal view of the chest is obtained. FINDINGS: There is some improvement in aeration as compared to prior exam. Heart size is stable. The re are overlying cardiac leads. No pneumothorax or sizable effusion. IMPRESSION: Some improvement in aeration. Additional follow-up recommended.
[2018-11-05] MEDS: POTASSIUM CHLORIDE 10 MEQ in WATER FOR INJECTION 1 100ML.BAG IVPB SCH ×2 (08:57→10:21)
[2018-11-05] MEDS: MAGNESIUM SULFATE-D5W PMX 1 GM in DEXTROSE/WATER 1 100ML.BAG IVPB SCH ×2 (08:57→10:20)
[2018-11-05] MEDS: PANTOPRAZOLE 40 MG/10 ML VIAL IV SCH (08:58)
[2018-11-05] MEDS: carBAMazepine 200 MG TAB PO SCH ×2 (08:58→20:23)
[2018-11-05] MEDS: DIVALPROEX 500 MG TABLET.DR PO SCH ×2 (08:59→17:25)
[2018-11-05] MEDS ORDERED: GABAPENTIN 100 MG CAP PO PRN (10:08)
[2018-11-05] MEDS ORDERED: CALCIUM CARBONATE 500 MG CHEWABLE PO PRN (10:08)
[2018-11-05] MEDS ORDERED: BISACODYL 10 MG SUPP RECTAL PRN (10:08)
[2018-11-05] MEDS: FUROSEMIDE 10 MG/ML 4 ML VIAL IV SCH ×2 (10:25→20:23)
[2018-11-05] MEDS: HEPARIN SODIUM,PORCINE 5,000 UNIT/ML 1 ML VIAL SQ SCH ×2 (10:25→17:26)
--- NOTE | 2018-11-05 11:12 | ECHOF ---
Referral Reason:fluid overload, afib MEASUREMENTS -------- HEIGHT: 177.8 cm WEIGHT: 69.9 kg BP: 112/74 RVIDd: 2.5 cm (< 3.3) IVSd: 1.2 cm (0.6 - 1.1) LVIDd: 4.8 cm (3.9 - 5.3) LVPWd: 1.2 cm (0.6 - 1.1) IVSs: 1.7 cm LVIDs: 2.6 cm LVPWs: 1.9 cm LA Diam: 3.8 cm (2.7 - 3.8) LAESV Index (A-L): 22.49 ml/m Ao Diam: 3.4 cm (2.0 - 3.7) AV Cusp: 1.7 cm (1.5 - 2.6) MV EXCURSION: 19.089 mm (> 18.000) MV EF SLOPE: 156 mm/s (70 - 150) EPSS: 0.3 cm FINDINGS -------- Resting tachycardia (HR>100bpm). This was a technically difficult study with suboptimal views. The left ventricular size is normal. There is borderline concentric left ventricular hypertrophy. Overall left ventricular systolic function is normal with, an EF between 60 - 65 %. The right ventricle is normal in size. Normal LA size by volume 22+/-6 ml/m2. The right atrium was not well visualized. 3 ml of Lumason was utilized for enhancement of images. There is mild aortic valve sclerosis. Mild mitral annular calcification present. The tricuspid valve was not well visualized. The pulmonic valve was not well visualized. The aortic root size is normal. Normal inferior vena cava with normal inspiratory collapse consistent with estimated right atrial pre ssure of 5 mmHg. The pericardium is normal. CONCLUSIONS -------- 1. Resting tachycardia (HR>100bpm). 2. This was a technically difficult study with suboptimal views. 3. The left ventricular size is normal. 4. There is borderline concentric left ventricular hypertrophy. 5. Overall left ventricular systolic function is normal with, an EF between 60 - 65 %. 6. The right ventricle is normal in size. 7. Normal LA size by volume 22+/-6 ml/m2. 8. The right atrium was not well visualized. 9. 3 ml of Lumason was utilized for enhancement of images. 10. There is mild aortic valve sclerosis. 11. Mild mitral annular calcification present. 12. The tricuspid valve was not well visualized. 13. The pulmonic valve was not well visualized. 14. The aortic root size is normal. 15. Normal inferior vena cava with normal inspiratory collapse consistent with estimated right atrial pressure of 5 mmHg. 16. The pericardium is normal. HEALTH CARE SANITARY TECHNICIAN: Jeanne Simon RDCS
[2018-11-05] MEDS: IPRATROPIUM-ALBUTEROL 3 ML NEB INHALATION SCH ×3 (12:26→19:11)
[2018-11-05] MEDS: methylPREDNISolone SOD SUCCI 125 MG/2 ML VIAL IV SCH ×2 (12:48→17:25)
--- NOTE | 2018-11-05 15:38 | P.PN ---
Subjective Progress Note Date: 11/05/18 Principal diagnosis: Acute hypoxic respiratory failure Mr. Davila is a 68-year-old male with a past medical history of GERD, hypertension, hyperlipidemia, coronary artery disease, seizure disorder, who is a resident of [facility] brought in by the EMS for weakness. Patient was recently admitted to the hospital earlier this month for hypoxemic respiratory failure and C. diff colitis. Patient was discharged on antibiotics. But for the past couple of days patient has generalized weakness and fatigue and he also had a fever then he was brought into the hospital. Overnight the patient received a dose of vancomycin and cefepime and was admitted to the floors with IV fluids. This morning patient was developed acute worsening of his respiratory status and he was tachycardic. So 18 minus:, He was started on BiPAP. As he was having diffuse crackles he was given a dose of Lasix and his IV fluids were stopped. Later on patient was transferred to the ICU. In the ICU patient was started on BiPAP. The patient had a chest x-ray done which was showing pulmonary vascular congestion along with diffuse bilateral infiltrates. Dr. Cortez from [place] evaluated the patient and changed his antibiotics to doxycycline. He was also started on by mouth vancomycin as he had to complete the dose for his C. diff colitis from last visit. On 11/05/18 - patient is still in the ICU. His oxygen requirements decreased overnight. He is currently on 8 L of high flow oxygen. Patient still complains of mild difficulty in breathing but states better than yesterday. He denies having any chest pain or palpitations. Patient was put on BiPAP overnight. Patient has been started on Solu-Medrol. Patient had an echocardiogram done showing ejection fraction of 60-65%, but it is a suboptimal study. Chest x-ray done this morning shows improvement any radiation. Active Medications Acetaminophen (Tylenol Tab) 650 mg PO Q6HR PRN PRN Reason: Mild Pain or Fever > 100.5 Last Admin: 11/05/18 06:09 Dose: 650 mg Documented by: Albuterol/Ipratropium (Duoneb 0.5 Mg-3 Mg/3 Ml Soln) 3 ml INHALATION RT-QID [facility] Last Admin: 11/05/18 12:26 Dose: 3 ml Documented by: Aspirin (Aspirin) 81 mg PO DAILY [facility] Bisacodyl (Dulcolax) 10 mg RECTAL DAILY PRN PRN Reason: Constipation Calcium Carbonate/Glycine (Tums) 500 mg PO Q8H PRN PRN Reason: UPSET STOMACH Carbamazepine (Tegretol) 200 mg PO BID [facility] Last Admin: 11/05/18 08:58 Dose: 200 mg Documented by: Divalproex Sodium (Depakote) 1,000 mg PO BID@0800,1700 [facility] Last Admin: 11/05/18 08:59 Dose: 1,000 mg Documented by: Famotidine (Pepcid) 20 mg PO BID@0800,1700 [facility] Ferrous Sulfate (Feosol) 325 mg PO DAILY [facility] Furosemide (Lasix) 40 mg IV Q12HR [facility] Last Admin: 11/05/18 10:25 Dose: 40 mg Documented by: Gabapentin (Neurontin) 100 mg PO DAILY PRN PRN Reason: Spasms Heparin Sodium (Porcine) (Heparin) 5,000 unit SQ Q8HR [facility] Last Admin: 11/05/18 10:25 Dose: 5,000 unit Documented by: Doxycycline Hyclate 100 mg/ (Sodium Chloride) 100 mls @ 100 mls/hr IVPB Q12HR [facility] Last Admin: 11/05/18 08:57 Dose: 100 mls/hr Documented by: Levothyroxine Sodium (Synthroid) 50 mcg PO DAILY@0630 [facility] Methylprednisolone Sodium Succinate (Solu-Medrol) 60 mg IV Q6HR [facility] Last Admin: 11/05/18 12:48 Dose: 60 mg Documented by: Metoprolol Succinate (Toprol Xl) 25 mg PO DAILY [facility] Miscellaneous Information (Magnesium Per Protocol) 1 each MISCELLANE DAILY PRN; Protocol PRN Reason: Per Protocol Miscellaneous Information (Potassium Per Protocol) 1 each MISCELLANE DAILY PRN; Protocol PRN Reason: Per Protocol Naloxone HCl (Narcan) 0.2 mg IV Q2M PRN PRN Reason: Opioid Reversal Pantoprazole Sodium (Protonix) 40 mg IV DAILY [facility] Last Admin: 11/05/18 08:58 Dose: 40 mg Documented by: Paroxetine HCl (Paxil) 10 mg PO DAILY [facility] Tamsulosin HCl (Flomax) 0.4 mg PO QAM [facility] Vancomycin HCl (Vancomycin Oral Solution) 250 mg PO Q6HR [facility] Last Admin: 11/05/18 12:53 Dose: 250 mg Documented by: Objective - Vital Signs Vital signs: Vital Signs Temp 98.6 F 11/05/18 12:00 Pulse 103 H 11/05/18 15:00 Resp 24 11/05/18 15:00 BP 134/74 11/05/18 15:00 Pulse Ox 92 L 11/05/18 15:00 Intake & Output 11/04/18 11/05/18 11/05/18 18:59 06:59 18:59 Intake Total 630 1540 1220 Output Total 0319 096 7092 Balance -895 970 -780 Weight 70.3 kg Intake: IV 544 295 0969 .9 20 ml/hour 140 100 20 Doxycycline 100 mg In 100 Sodium Chloride 0.9% 100 ml @ 100 mls/hr IVPB Q12HR [facility] Rx#:[id number] Magnesium Sulfate-D5w Pmx 200 1 gm In Dextrose/Water 1 100ml.bag @ 100 mls/hr IVPB Q1H [facility] Rx#: [id number] Potassium Chloride 10 meq 200 In Water For Injection 1 100ml.bag @ 100 mls/hr IVPB Q1H [facility] Rx#: [id number] Sodium Chloride 0.9% 1, 700 000 ml @ 100 mls/hr IV . Q10H [facility] Rx#:[id number] Intake, IV Titration 250 Amount Vancomycin 1,250 mg In 250 Sodium Chloride 0.9% 250 ml @ 125 mls/hr IVPB Q12H [facility] Rx#:[id number] Oral 240 1440 Output: Urine 3897 [id number] Other: Voiding Method Indwelling Catheter Indwelling Catheter Indwelling Catheter # Voids 1 # Bowel Movements 1 1 1 - Exam GEN. APPEARANCE: Thin, chronically ill-appearing HEENT - no pallor. No icterus. NECK EXAM: normal inspection. Absent: tenderness, meningismus, full ROM, lymphadenopathy RESPIRATORY EXAM: Coarse breath sounds bilaterally. Crackles at the lower lung bases bilaterally CARDIOVASCULAR EXAM: tachycardia GI/ABDOMINAL EXAM: soft, normal bowel sounds. Absent: distended, tenderness, guarding, rebound, rigid EXTREMITIES EXAM: No edema. NEUROLOGICAL EXAM: alert, oriented X3, no focal deficits. SKIN EXAM: warm, dry, intact, normal color. Absent: rash - Labs CBC & Chem 7: 11/05/18 05:20 11/05/18 05:20 Labs: Abnormal Lab Results - Last 24 Hours (Table) 11/05/18 11/05/18 Range/Units 05:20 05:20 RBC 2.30 L (4.30-5.90) m/uL Hgb 7.1 L D (13.0-17.5) gm/dL Hct 23.7 L (39.0-53.0) % MCV 102.9 H (80.0-100.0) fL MCHC 30.0 L (31.0-37.0) g/dL RDW 27.6 H (11.5-15.5) % Lymphocytes # 0.6 L (1.0-4.8) k/uL Macrocytosis Marked A Sodium 135 L (137-145) mmol/L Calcium 8.3 L (8.4-10.2) mg/dL Microbiology - Last 24 Hours (Table) 11/03/18 18:20 Blood Culture - Preliminary Blood No Growth after 24 hours Assessment and Plan Assessment: ASSESSMENT Acute hypoxic respiratory failure Acute diastolic congestive heart failure Atrial fibrillation with rapid ventricular rate Chronic atrial fibrillation- not a good candidate for and accommodation due to prior history of bleeding COPD History of sigmoid diverticulitis Recent C. diff infection History of left upper lobe mass with a wedge dissection for squamous cell cancer Coronary artery disease with history of prior [place] GERD Hypertension Hyperlipidemia Chronic seizure disorder PLAN: Patient is still requiring 8 L of oxygen. His antibiotics have been changed to doxycycline and and by mouth vancomycin for his recent C. diff. Patient does not have diarrhea currently. He is on BiPAP at night. Chest x-ray showed significant improvement since giving him IV Lasix. For now he will be continued on IV Lasix, Solu-Medrol, breathing treatments. Overall prognosis remains guarded. Further recommendations to follow depending on the progress of the patient.
--- NOTE | 2018-11-05 15:38 | P.PN ---
Subjective Progress Note Date: 11/05/18 68-year-old male patient, and longterm resident was brought into the hospital because of generalized weakness. The patient has history of CVA, seizure disorder, COPD, atrial fibrillation. The patient has advanced COPD. He was an acute hypoxic respiratory failure. He was placed on BiPAP for respir atory support. The patient was given a dose of Lasix and then moved to the intensive care unit. The patient was initially on the BiPAP at a pressure of 16/8 cm of water and FiO2 of 50%. IV fluids were cut down to KVO. This morning he is feeling much more comfortable compared to yesterday. The chest x-ray still showing bilateral pulmonary infiltrates which is covered diffuse with some background emphysema. He is congested and he is also bronchospastic and wheezy. No difficulty leukocytosis. The rest of the blood work and electrodes are within normal limits. The lactic acid level was at 2.5 dropped down to 1.0. The echo of the heart showed an ejection fraction of 60-65%. The patient has no other valvular abnormalities. He is known to have history of C. diff colitis. He is on oral vancomycin. He is also on doxycycline regarding COPD exacerbation. He is on DuoNeb nebulized treatments around the clock. IV Solu Medrol be started. IV Lasix will also be started. Objective - Vital Signs Vital signs: Vital Signs Temp 98.6 F 11/05/18 12:00 Pulse 103 H 11/05/18 15:00 Resp 24 11/05/18 15:00 BP 134/74 11/05/18 15:00 Pulse Ox 92 L 11/05/18 15:00 Intake & Output 11/04/18 11/05/18 11/05/18 18:59 06:59 18:59 Intake Total 630 1540 1220 Output Total 9931 374 3198 Balance -895 970 -780 Weight 70.3 kg Intake: IV 617 623 3525 .9 20 ml/hour 140 100 20 Doxycycline 100 mg In 100 Sodium Chloride 0.9% 100 ml @ 100 mls/hr IVPB Q12HR [facility] Rx#:[id number] Magnesium Sulfate-D5w Pmx 200 1 gm In Dextrose/Water 1 100ml.bag @ 100 mls/hr IVPB Q1H [facility] Rx#: [id number] Potassium Chloride 10 meq 200 In Water For Injection 1 100ml.bag @ 100 mls/hr IVPB Q1H [facility] Rx#: [id number] Sodium Chloride 0.9% 1, 700 000 ml @ 100 mls/hr IV . Q10H [facility] Rx#:[id number] Intake, IV Titration 250 Amount Vancomycin 1,250 mg In 250 Sodium Chloride 0.9% 250 ml @ 125 mls/hr IVPB Q12H [facility] Rx#:[id number] Oral 240 1440 Output: Urine 1785 946 5161 Other: Voiding Method Indwelling Catheter Indwelling Catheter Indwelling Catheter # Voids 1 # Bowel Movements 1 1 1 - Exam Appearance the patient is calm and comfortable not in acute respiratory distress currently on oxygen at high flow at 8 L per minute nasal cannula. HEENT: Anicteric, conjunctiva are pink and moist, nasal or oral mucosa are without lesion. The neck is supple without lymphadenopathy or thyromegaly. No oral thrush is noted. Lungs: symmetrical air entry is noted, coarse crackles at the lung love decreased breath sounds to the bilateral bases Heart: irregular without murmur click or rub Abdomen: Positive bowel sounds, soft minimal tenderness in the lower quadrants, there is no palpable masses or organomegaly. Abdomen is without guarding or rebound. Extremities:Upper extremities reveal evidence of equal pulses, no lesions are seen, no petechiae or telangiectasia. The lower extremities have no significant edema, peripheral pulses were 2+ and symmetric, no lesions or ulcerations are seen. Capillary refill was brisk. Skin: Intact without significant rash or lesions. Neuro:the patient is arousable and follows simple commands answer simple questions is very fatigued Musculoskeletal: Patient is bedbound No acute joint effusions are noted. Lymph: No cervical, supraclavicular, axillary, epitrochlear, or inguinal lymphadenopathy was noted. - Labs CBC & Chem 7: 11/05/18 05:20 11/05/18 05:20 Labs: Abnormal Lab Results - Last 24 Hours (Table) 11/05/18 11/05/18 Range/Units 05:20 05:20 RBC 2.30 L (4.30-5.90) m/uL Hgb 7.1 L D (13.0-17.5) gm/dL Hct 23.7 L (39.0-53.0) % MCV 102.9 H (80.0-100.0) fL MCHC 30.0 L (31.0-37.0) g/dL RDW 27.6 H (11.5-15.5) % Lymphocytes # 0.6 L (1.0-4.8) k/uL Macrocytosis Marked A Sodium 135 L (137-145) mmol/L Calcium 8.3 L (8.4-10.2) mg/dL Microbiology - Last 24 Hours (Table) 11/03/18 18:20 Blood Culture - Preliminary Blood No Growth after 24 hours Assessment and Plan Plan: 1 acute hypoxic respiratory failure, currently on high flow oxygen at 8 L per minute nasal cannula. The patient developed diffuse but the pulmonary i nfiltrates. Consider pulmonary edema/CHF. Pneumonia is felt to be less likely. 2 COPD advanced with bullous changes bilaterally 3 C. diff colitis currently on oral vancomycin. The patient was also started on doxycycline regarding COPD exacerbation 4 CHF with diastolic failure and a preserved LV function 5 chronic atrial fibrillation, with a controlled rate 6 squamous cell carcinoma of the lung with a previous left upper lobe wedge resection 7 CVA/TIA 8 hypertension 9 hyperlipidemia 10 coronary artery disease with previous NM 11 chronic anemia with a hemoglobin of 7.4 on 12 history of adenocarcinoma of the colon, post nephroscopic sigmoid colectomy 13 previous history of GI bleed 14 chronic back pain 15 impaired performance and functional status secondary to above-mentioned comorbidities Plan This is a longterm resident. He is currently being treated for the above- mentioned comorbidities. Current antibiotic coverage should be adequate. Will not broaden antibiotic coverage based on the fact that the patient has underlying C. diff colitis. Continue oral vancomycin. Continue oral doxycycline. Add IV Solu-Medrol. Continue DuoNeb nebulized treatments around the clock. IV Lasix. Echocardiogram was ordered and reviewed. Outpatient medication will be ordered resume. We'll continue to follow. BiPAP for now and attempt to wean down the FiO2 to maintain saturation above 90%. Earlier this morning he was on 8 L of oxygen by nasal cannula. We'll continue to follow.
[2018-11-05] MEDS ORDERED: CEFEPIME 1 GM in SODIUM CHLORIDE 0.9% 50 ML IVPB SCH (17:00)
[2018-11-05] MEDS: FAMOTIDINE 20 MG TAB PO SCH (17:25)
--- NOTE | 2018-11-05 22:04 | P.PN ---
Subjective Progress Note Date: 11/05/18 68-year-old male presents to the emergency center from the extended care facility with increasing weakness and increasing shortness of breath. The patient is known to the facility that he was recently discharged which point in time he was having difficulty with abdominal pain and frequent diarrhea. Workup revealed evidence of clostridium difficile colitis. And he was discharged back to the extended care facility on oral vancomycin therapy appropriately. The patient has multiple underlying medical issues which includes coronary artery disease, COPD and history of stroke. During his recent hospital stay he did have ongoing cardiac issues apparently with atrial fibrillation with rapid ventricular response and heart failure. At admission the patient was weak and ill however rapidly deteriorated and required a rapid response evaluation. With evidence of respiratory failure and was transferred to the intensive care unit and treated with BiPAP. The patient is now feeling somewhat better but is still weak and ill. He has less short of breath. He's denying discomforts in his [address]. He relates his abdominal discomfort and diarrhea have improved 11/05/2018 the patient is feeling somewhat better today. He is not having fevers or chills. His respiratory status is improved. It is not having diarrhea today. Objective - Vital Signs Vital signs: Vital Signs Temp 98.0 F 11/05/18 20:00 Pulse 92 11/05/18 21:00 Resp 22 11/05/18 21:00 BP 103/61 11/05/18 21:00 Pulse Ox 98 11/05/18 21:00 Intake & Output 11/05/18 11/05/18 11/06/18 06:59 18:59 06:59 Intake Total 1540 1460 620 Output Total 570 2245 170 Balance 970 -785 450 Weight 70.3 kg Intake: IV 100 1460 140 0.9Normal Saline @ 20 ml/ 100 40 40 hour Doxycycline 100 mg In 100 100 Sodium Chloride 0.9% 100 ml @ 100 mls/hr IVPB Q12HR [facility] Rx#:[id number] Magnesium Sulfate-D5w Pmx 200 1 gm In Dextrose/Water 1 100ml.bag @ 100 mls/hr IVPB Q1H [facility] Rx#: [id number] Potassium Chloride 10 meq 220 In Water For Injection 1 100ml.bag @ 100 mls/hr IVPB Q1H [facility] Rx#: [id number] Sodium Chloride 0.9% 1, 900 000 ml @ 100 mls/hr IV . Q10H [facility] Rx#:[id number] Oral 1440 480 Output: Urine 570 2245 170 Other: Voiding Method Indwelling Catheter Indwelling Catheter Indwelling Catheter # Bowel Movements 1 1 - Exam HEENT: Anicteric, conjunctiva are pink and moist, nasal or oral mucosa are without lesion. The neck is supple without lymphadenopathy or thyromegaly. No oral thrush is noted. Lungs: symmetrical air entry is noted, coarse crackles at the lung love decreased breath sounds to the bilateral bases Heart: irregular without murmur click or rub Abdomen: Positive bowel sounds, soft minimal tenderness in the lower quadrants, there is no palpable masses or organomegaly. Abdomen is without guarding or rebound. Extremities:Upper extremities reveal evidence of equal pulses, no lesions are seen, no petechiae or telangiectasia. The lower extremities have no significant edema, peripheral pulses were 2+ and symmetric, no lesions or ulcerations are seen. Capillary refill was brisk. Skin: Intact without significant rash or lesions. Neuro:the patient is arousable and follows simple commands answer simple questions is very fatigued Musculoskeletal: Patient is bedbound No acute joint effusions are noted. Lymph: No cervical, supraclavicular, axillary, epitrochlear, or inguinal lymphadenopathy was noted. - Labs CBC & Chem 7: 11/05/18 05:20 11/05/18 05:20 Labs: Abnormal Lab Results - Last 24 Hours (Table) 11/05/18 11/05/18 Range/Units 05:20 05:20 RBC 2.30 L (4.30-5.90) m/uL Hgb 7.1 L D (13.0-17.5) gm/dL Hct 23.7 L (39.0-53.0) % MCV 102.9 H (80.0-100.0) fL MCHC 30.0 L (31.0-37.0) g/dL RDW 27.6 H (11.5-15.5) % Lymphocytes # 0.6 L (1.0-4.8) k/uL Macrocytosis Marked A Sodium 135 L (137-145) mmol/L Calcium 8.3 L (8.4-10.2) mg/dL Microbiology - Last 24 Hours (Table) 11/03/18 18:20 Blood Culture - Preliminary Blood No Growth after 48 hours Laboratory Results WBC 7.9 k/uL (3.8-10.6) 11/05/18 05:20 RBC 2.30 m/uL (4.30-5.90) L 11/05/18 05:20 Hgb 7.1 gm/dL (13.0-17.5) L D 11/05/18 05:20 Hct 23.7 % (39.0-53.0) L 11/05/18 05:20 MCV 102.9 fL (80.0-100.0) H 11/05/18 05:20 MCH 30.9 pg (25.0-35.0) 11/05/18 05:20 MCHC 30.0 g/dL (31.0-37.0) L 11/05/18 05:20 RDW 27.6 % (11.5-15.5) H 11/05/18 05:20 Plt Count 152 k/uL (150-450) D 11/05/18 05:20 Neutrophils % 86 % 11/05/18 05:20 Neutrophils % (Manual) 79 % 11/04/18 11:37 Band Neutrophils % 2 % 11/04/18 11:37 Lymphocytes % 7 % 11/05/18 05:20 Lymphocytes % (Manual) 11 % 11/04/18 11:37 Monocytes % 5 % 11/05/18 05:20 Monocytes % (Manual) 7 % 11/04/18 11:37 Eosinophils % 1 % 11/05/18 05:20 Eosinophils % (Manual) 1 % 11/04/18 11:37 Basophils % 0 % 11/05/18 05:20 Metamyelocytes % 1 % 11/04/18 11:37 Myelocytes % 1 % 11/04/18 11:37 Neutrophils # 6.8 k/uL (1.3-7.7) 11/05/18 05:20 Neutrophils # (Manual) 15.30 k/uL (1.3-7.7) H 11/04/18 11:37 Lymphocytes # 0.6 k/uL (1.0-4.8) L 11/05/18 05:20 Lymphocytes # (Manual) 2.09 k/uL (1.0-4.8) 11/04/18 11:37 Monocytes # 0.4 k/uL (0-1.0) 11/05/18 05:20 Monocytes # (Manual) 1.33 k/uL (0-1.0) H 11/04/18 11:37 Eosinophils # 0.0 k/uL (0-0.7) 11/05/18 05:20 Eosinophils # (Manual) 0.19 k/uL (0-0.7) 11/04/18 11:37 Basophils # 0.0 k/uL (0-0.2) 11/05/18 05:20 Metamyelocytes # (Man) 0.19 k/uL (0) H 11/04/18 11:37 Myelocytes # (Manual) 0.19 k/uL (0) H 11/04/18 11:37 Nucleated RBCs 3 /100 WBC (0-0) H 11/04/18 11:37 Manual Slide Review Performed 11/04/18 11:37 Polychromasia Present 11/04/18 11:37 Hypochromasia Marked 11/05/18 05:20 Poikilocytosis Slight 11/05/18 05:20 Anisocytosis Marked 11/05/18 05:20 Microcytosis Slight 11/03/18 15:55 Macrocytosis Marked A 11/05/18 05:20 Ovalocytes Present 11/03/18 15:55 Fragmented RBCs Present 11/04/18 11:37 PT 11.6 sec (9.0-12.0) 11/03/18 15:55 INR 1.1 (<1.2) 11/03/18 15:55 APTT 25.5 sec (22.0-30.0) 11/03/18 15:55 Sample Site LRAD 11/04/18 12:04 ABG pH 7.47 (7.35-7.45) H 11/04/18 12:04 ABG pCO2 27 mmHg (35-45) L 11/04/18 12:04 ABG pO2 100 mmHg (83-108) 11/04/18 12:04 ABG HCO3 20 mmol/L (21-25) L 11/04/18 12:04 ABG Total CO2 21 mmol/L (19-24) 11/04/18 12:04 ABG O2 Saturation 98.4 % (94-97) H 11/04/18 12:04 ABG Base Excess -3.9 mmol/L 11/04/18 12:04 Oliver Test Yes 11/04/18 12:04 FiO2 50 % 11/04/18 12:04 Sodium 135 mmol/L (137-145) L 11/05/18 05:20 Potassium 3.9 mmol/L (3.5-5.1) 11/05/18 05:20 Chloride 103 mmol/L (98-107) 11/05/18 05:20 Carbon Dioxide 24 mmol/L (22-30) 11/05/18 05:20 Anion Gap 8 mmol/L 11/05/18 05:20 BUN 19 mg/dL (9-20) 11/05/18 05:20 Creatinine 1.01 mg/dL (0.66-1.25) 11/05/18 05:20 Est GFR (CKD-EPI)AfAm 87 (>60 ml/min/1.73 sqM) 11/05/18 05:20 Est GFR (CKD-EPI)NonAf 75 (>60 ml/min/1.73 sqM) 11/05/18 05:20 Glucose 91 mg/dL (74-99) 11/05/18 05:20 POC Glucose (mg/dL) 108 mg/dL (75-99) H 11/04/18 11:38 POC Glu Fundraising Specialist ID 11/04/18 11:38 Lactic Ac Sepsis Rflx Y 11/04/18 13:42 Plasma Lactic Acid Jhonny 1.0 mmol/L (0.7-2.0) 11/04/18 17:23 Calcium 8.3 mg/dL (8.4-10.2) L 11/05/18 05:20 Phosphorus 3.3 mg/dL (2.5-4.5) 11/05/18 05:20 Magnesium 1.6 mg/dL (1.6-2.3) 11/05/18 05:20 Total Bilirubin 1.3 mg/dL (0.2-1.3) 11/04/18 11:37 AST 22 U/L (17-59) 11/04/18 11:37 ALT 12 U/L (21-72) L 11/04/18 11:37 Alkaline Phosphatase 39 U/L (38-126) 11/04/18 11:37 Troponin I <0.012 ng/mL (0.000-0.034) 05/18/19 15:55 NT-Pro-B Natriuret Pep 66494 pg/mL 11/04/18 11:37 Total Protein 6.2 g/dL (6.3-8.2) L 11/04/18 11:37 Albumin 3.6 g/dL (3.5-5.0) 11/04/18 11:37 TSH 1.290 mIU/L (0.465-4.680) 11/03/18 15:55 Urine Color Yellow 11/03/18 17:20 Urine Appearance Clear (Clear) 11/03/18 17:20 Urine pH 6.5 (5.0-8.0) 11/03/18 17:20 Ur Specific [place] 1.022 (1.001-1.035) 11/03/18 17:20 Urine Protein 1+ (Negative) H 11/03/18 17:20 Urine Glucose (UA) Negative (Negative) 11/03/18 17:20 Urine Ketones Negative (Negative) 11/03/18 17:20 Urine Blood Negative (Negative) 11/03/18 17:20 Urine Nitrite Negative (Negative) 11/03/18 17:20 Urine Bilirubin Negative (Negative) 11/03/18 17:20 Urine Urobilinogen <2.0 mg/dL (<2.0) 11/03/18 17:20 Ur Leukocyte Esterase Negative (Negative) 11/03/18 17:20 Urine RBC <1 /hpf (0-5) 11/03/18 17:20 Urine WBC 1 /hpf (0-5) 11/03/18 17:20 Hyaline Casts 3 /lpf (0-2) H 11/03/18 17:20 Urine Mucus Rare /hpf (None) H 11/03/18 17:20 Stool Occult Blood Negative (Negative) 11/03/18 17:30 Microbiology 11/03/18 18:20 Blood Blood Culture - Preliminary No Growth after 48 hours Assessment and Plan (1) C. difficile colitis Narrative/Plan: 68-year-old male that has multiple medical troubles presents from extended care facility with increasing weakness and shortness of breath. Shortly after admission his respiratory status further worsened. Imaging studies are reviewed and patient has evidence of significant infiltrates bilaterally. The patient is receiving diuresis and was placed on BiPAP therapy and is started to have improvement.the patient has not had fever but has had a significant increase of his leukocytosis since admission. This however appears to be stress related and is occurred upon review of the history multiple times in the past. It is unlikely that he has a significant pneumonia at this time is much more likely that he has acute exacerbation Of COPD with acute on chronic systolic heart failure with pulmonary edema. Would limit antibiotic therapy is much as possible given his recent history of C. difficile colitis. Oral vancomycin will continue for now. Antimicrobial therapy based on prior cultures will be with doxycycline IV 100 mg twice a day for now with overall goal to limit antimicrobial therapy. Cultures will further help direct course of therapy. We 22,019 patient is feeling better today. He is less short of breath. He is not having diarrhea. No difficulties with the antibiotic therapy with doxycycline. Oral vancomycin without difficulty. His respiratory status is improved and will continue with current treatment. Blood cultures are negative. Current Visit: No Status: Acute Code(s): A04.72 - ENTEROCOLITIS D/T CLOSTRIDIUM DIFFICILE, NOT SPCF RECUR SNOMED Code(s): 093416123 (2) COPD (chronic obstructive pulmonary disease) Current Visit: No Status: Acute Code(s): J44.9 - CHRONIC OBSTRUCTIVE PULMONARY DISEASE, UNSPECIFIED SNOMED Code(s): 64024610 (3) Acute pulmonary edema with congestive heart failure Current Visit: Yes Status: Acute Code(s): I50.1 - LEFT VENTRICULAR FAILURE, UNSPECIFIED SNOMED Code(s): 32678895
[2018-11-06] MEDS: HEPARIN SODIUM,PORCINE 5,000 UNIT/ML 1 ML VIAL SQ SCH ×3 (01:04→16:21)
[2018-11-06] MEDS: methylPREDNISolone SOD SUCCI 125 MG/2 ML VIAL IV SCH ×4 (01:04→17:26)
[2018-11-06] MEDS: ACETAMINOPHEN TAB 325 MG TAB PO PRN ×2 (01:04→11:38)
[2018-11-06] MEDS: VANCOMYCIN ORAL SOLUTION 250 MG/5 ML BOTTLE PO SCH ×4 (01:05→17:27)
[2018-11-06] MEDS: LEVOTHYROXINE 50 MCG TAB PO SCH (06:17)
[2018-11-06 06:18] LABS: ALT 17 U/L (21-72); AST 15 U/L (17-59); Albumin 2.6 g/dL (3.5-5.0); Alkaline Phosphatase 29 U/L (38-126); Anion Gap 9 mmol/L; Blood Urea Nitrogen 21 mg/dL (9-20); Calcium 8.1 mg/dL (8.4-10.2); Carbon Dioxide 23 mmol/L (22-30); Chloride 105 mmol/L (98-107); Glucose 156 mg/dL (74-99); Magnesium 1.9 mg/dL (1.6-2.3); Phosphorus 3.6 mg/dL (2.5-4.5); Potassium 3.6 mmol/L (3.5-5.1); Sodium 137 mmol/L (137-145); Total Bilirubin 0.4 mg/dL (0.2-1.3); Total Protein 4.9 g/dL (6.3-8.2)
[2018-11-06 06:39] LABS: Anisocytosis Marked; HCT 21.7 % (39.0-53.0); Hypochromasia Marked; MCH 31.4 pg (25.0-35.0); MCHC 30.4 g/dL (31.0-37.0); MCV 103.5 fL (80.0-100.0); Macrocytosis Marked; Mean Platelet Volume 7.8; Platelet Count 119 k/uL (150-450); Poikilocytosis Slight; RBC 2.09 m/uL (4.30-5.90)
[2018-11-06] MEDS: MAGNESIUM SULFATE-D5W PMX 1 GM in DEXTROSE/WATER 1 100ML.BAG IVPB SCH ×2 (06:49→07:59)
[2018-11-06 06:51] LABS: WBC 1.3 k/uL (3.8-10.6)
[2018-11-06 06:52] LABS: HGB 6.6 gm/dL (13.0-17.5); RDW 26.8 % (11.5-15.5)
[2018-11-06 06:59] LABS: Glucose,Whole Blood 173 mg/dL (75-99)
[2018-11-06] MEDS ORDERED: POTASSIUM CHLORIDE ER 20 MEQ TAB.ER PO ONE (07:00)
[2018-11-06] MEDS: INSULIN ASPART (NovoLOG) 100 UNIT/ML VIAL SQ SCH ×4 (07:12→21:17)
[2018-11-06 07:22] LABS: Band Neutrophils % 1 %
[2018-11-06 07:23] LABS: Blast Cells # (M) 0.04 k/uL (0); Nucleated Red Blood Cells 0 /100 WBC (0-0); Total Cells Counted 200
[2018-11-06 07:24] LABS: Polychromasia Present
[2018-11-06] MEDS: IPRATROPIUM-ALBUTEROL 3 ML NEB INHALATION SCH ×4 (07:24→19:20)
[2018-11-06 07:48] LABS: Anisocytosis Marked; Basophils % (A) 0 %; Eosinophils % (A) 1 %; HCT 25.4 % (39.0-53.0); HGB 7.6 gm/dL (13.0-17.5); Hypochromasia Marked; Lymphocytes # (A) 0.3 k/uL (1.0-4.8); Lymphocytes % (A) 19 %; MCH 31.9 pg (25.0-35.0); MCV 106.1 fL (80.0-100.0); Macrocytosis Marked; Mean Platelet Volume 9.3; Monocytes # (A) 0.1 k/uL (0-1.0); Monocytes % (A) 7 %; Neutrophils # (A) 1.1 k/uL (1.3-7.7); Neutrophils % (A) 70 %; Platelet Count 150 k/uL (150-450); Poikilocytosis Moderate; WBC 1.5 k/uL (3.8-10.6)
[2018-11-06 07:50] LABS: RDW 26.7 % (11.5-15.5)
--- NOTE | 2018-11-06 07:54 | XR ---
EXAMINATION TYPE: XR chest 1V portable DATE OF EXAM: 11/06/2018 COMPARISON: Prior chest x-ray 11/05/[address] 10/24/2018 HISTORY: Congestive heart failure TECHNIQUE: Single frontal view of the chest is obtained. FINDINGS: Pleural parenchymal changes are similar to prior exam. Heart size is stable. No evident pn eumothorax. There are overlying cardiac leads. IMPRESSION: There are underlying changes of emphysema, interstitial lung disease, scarring, difficul t to exclude superimposed pneumonia, airspace disease, interstitial edema.
[2018-11-06] MEDS: DIVALPROEX 500 MG TABLET.DR PO SCH ×2 (08:08→16:22)
[2018-11-06] MEDS: carBAMazepine 200 MG TAB PO SCH ×2 (08:09→21:15)
[2018-11-06] MEDS: FERROUS SULFATE 325 MG TAB PO SCH (08:09)
[2018-11-06] MEDS: TAMSULOSIN 0.4 MG CAP.ER.24H PO SCH (08:10)
[2018-11-06] MEDS: METOPROLOL SUCCINATE (ER) 25 MG TAB.ER.24H PO SCH (08:10)
[2018-11-06] MEDS: PARoxetine 10 MG TAB PO SCH (08:10)
[2018-11-06] MEDS: FUROSEMIDE 10 MG/ML 4 ML VIAL IV SCH ×2 (08:10→21:16)
[2018-11-06] MEDS: DOXYCYCLINE 100 MG in SODIUM CHLORIDE 0.9% 100 ML IVPB SCH ×2 (08:17→21:16)
[2018-11-06] MEDS ORDERED: LEVOTHYROXINE 50 MCG TAB PO SCH (09:00)
[2018-11-06] MEDS: ASPIRIN 81 MG PO SCH (09:31)
[2018-11-06] MEDS: FAMOTIDINE 20 MG TAB PO SCH ×2 (09:31→16:22)
--- NOTE | 2018-11-06 09:48 | P.PN ---
Subjective Progress Note Date: 11/06/18 Principal diagnosis: Acute hypoxic respiratory failure secondary to pulmonary infiltrates, with consideration to pulmonary edema/CHF and possibility of pneumonia is not excluded 68-year-old male patient, and alf resident was brought into the hospital because of generalized weakness. The patient has history of CVA, seizure disorder, COPD, atrial fibrillation. The patient has advanced COPD. He was an acute hypoxic respiratory failure. He was placed on BiPAP for re spiratory support. The patient was given a dose of Lasix and then moved to the intensive care unit. The patient was initially on the BiPAP at a pressure of 16/8 cm of water and FiO2 of 50%. IV fluids were cut down to KVO. This morning he is feeling much more comfortable compared to yesterday. The chest x-ray still showing bilateral pulmonary infiltrates which is covered diffuse with some background emphysema. He is congested and he is also bronchospastic and wheezy. No difficulty leukocytosis. The rest of the blood work and electrodes are within normal limits. The lactic acid level was at 2.5 dropped down to 1.0. The echo of the heart showed an ejection fraction of 60-65%. The patient has no other valvular abnormalities. He is known to have history of C. diff colitis. He is on oral vancomycin. He is also on doxycycline regarding COPD exacerbation. He is on DuoNeb nebulized treatments around the clock. IV Solu Medrol be started. IV Lasix will also be started. On 11/06/2016 patient seen in follow-up in the intensive care unit, he is up in the recliner, in no acute distress, currently on 2 L of oxygen with a pulse ox of 97%, afebrile, hemodynamically stable, IV 0.9 normal saline at a rate of 20 mL an hour, no other drips. Clinically patient is looking much better, he denies any acute complaints, no worsening shortness of breath, no chest pain, no cough or congestion, lung sounds are positive for basilar crackles, today's chest x-ray has been reviewed with Dr. Pelaez, and it revealed underlying changes of emphysema, interstitial lung disease, scarring, with superimposed interstitial edema, and likelihood of underlying pneumonia is not entirely excluded. She remains on antibiotic coverage, currently on doxycycline and oral vancomycin, and patient has not had any loose stools last 24 hours, he is tolerating oral diet, urine output is in order of 20-30 ML per hour, was culture showed no growth, his labs have been reviewed, blood cell count is down to 1.5, hemoglobin is 7.6. Procalcitonin come back elevated to 0.84. Echocardiogram revealed a preserved left ventricle systolic function with EF of 60-65%, mild aortic valve sclerosis, tricuspid valve was not well visualized, and was mild mitral annular calcification. Patient denies any specific complaints. Objective - Vital Signs Vital signs: Vital Signs Temp 97.5 F L 11/06/18 08:00 Pulse 80 11/06/18 08:00 Resp 21 11/06/18 08:00 BP 115/68 11/06/18 08:00 Pulse Ox 97 11/06/18 08:00 Intake & Output 11/05/18 11/06/18 11/06/18 18:59 06:59 18:59 Intake Total 1460 1160 680 Output Total 2245 1197 50 Balance -785 -37 630 Weight 71.4 kg Intake: IV 1460 320 320 0.9Normal Saline @ 20 ml/ 40 220 20 hour Doxycycline 100 mg In 100 100 100 Sodium Chloride 0.9% 100 ml @ 100 mls/hr IVPB Q12HR [facility] Rx#:[id number] Magnesium Sulfate-D5w Pmx 200 200 1 gm In Dextrose/Water 1 100ml.bag @ 100 mls/hr IVPB Q1H [facility] Rx#: [id number] Potassium Chloride 10 meq 220 In Water For Injection 1 100ml.bag @ 100 mls/hr IVPB Q1H [facility] Rx#: [id number] Sodium Chloride 0.9% 1, 900 000 ml @ 100 mls/hr IV . Q10H [facility] Rx#:[id number] Oral 840 360 Output: Urine 2245 1197 50 Other: Voiding Method Indwelling Catheter Indwelling Catheter Indwelling Catheter # Bowel Movements 1 - Exam GENERAL EXAM: Alert, pleasant, 68-year-old white male, currently on 2 L of oxygen comfortable in no apparent distress. HEAD: Normocephalic/atraumatic. EYES: Normal reaction of pupils, equal size. Conjunctiva pink, sclera white. NOSE: Clear with pink turbinates. THROAT: No erythema or exudates. NECK: No masses, no JVD, no thyroid enlargement, no adenopathy. CHEST: No chest wall deformity. Symmetrical expansion. LUNGS: Equal air entry with basilar crackles, but wheeze, rhonchi or dullness. CVS: Regular rate and rhythm, normal S1 and S2, no gallops, no murmurs, no rubs ABDOMEN: Soft, nontender. No hepatosplenomegaly, normal bowel sounds, no guarding or rigidity. EXTREMITIES: No clubbing, no edema, no cyanosis, 2+ pulses and upper and lower extremities. MUSCULOSKELETAL: Muscle strength and tone normal. SPINE: No scoliosis or deformity SKIN: No rashes CENTRAL NERVOUS SYSTEM: Alert and oriented -3. No focal deficits, tone is normal in all 4 extremities. PSYCHIATRIC: Alert and oriented -3. Appropriate affect. Intact judgment and insight. - Labs CBC & Chem 7: 11/06/18 07:32 11/06/18 05:29 Labs: Abnormal Lab Results - Last 24 Hours (Table) 11/05/18 11/06/18 11/06/18 Range/Units 05:20 05:29 05:29 WBC 1.3 L* (3.8-10.6) k/uL RBC 2.09 L (4.30-5.90) m/uL Hgb 6.6 L* (13.0-17.5) gm/dL Hct 21.7 L (39.0-53.0) % MCV 103.5 H (80.0-100.0) fL MCHC 30.4 L (31.0-37.0) g/dL RDW 26.8 H (11.5-15.5) % Plt Count 119 L (150-450) k/uL Neutrophils # (1.3-7.7) k/uL Lymphocytes # (1.0-4.8) k/uL Macrocytosis Marked A BUN 21 H (9-20) mg/dL Glucose 156 H (74-99) mg/dL POC Glucose (mg/dL) (75-99) mg/dL Calcium 8.1 L (8.4-10.2) mg/dL AST 15 L (17-59) U/L ALT 17 L (21-72) U/L Alkaline Phosphatase 29 L (38-126) U/L Total Protein 4.9 L (6.3-8.2) g/dL Albumin 2.6 L (3.5-5.0) g/dL Procalcitonin 0.84 H (0.02-0.09) ng/mL 11/06/18 11/06/18 Range/Units 06:57 07:32 WBC 1.5 L (3.8-10.6) k/uL RBC 2.40 L (4.30-5.90) m/uL Hgb 7.6 L (13.0-17.5) gm/dL Hct 25.4 L (39.0-53.0) % MCV 106.1 H (80.0-100.0) fL MCHC 30.0 L (31.0-37.0) g/dL RDW 26.7 H (11.5-15.5) % Plt Count (150-450) k/uL Neutrophils # 1.1 L (1.3-7.7) k/uL Lymphocytes # 0.3 L (1.0-4.8) k/uL Macrocytosis Marked A BUN (9-20) mg/dL Glucose (74-99) mg/dL POC Glucose (mg/dL) 173 H (75-99) mg/dL Calcium (8.4-10.2) mg/dL AST (17-59) U/L ALT (21-72) U/L Alkaline Phosphatase (38-126) U/L Total Protein (6.3-8.2) g/dL Albumin (3.5-5.0) g/dL Procalcitonin (0.02-0.09) ng/mL Microbiology - Last 24 Hours (Table) 11/03/18 18:20 Blood Culture - Preliminary Blood No Growth after 48 hours Assessment and Plan Plan: Assessment: 1 acute hypoxic respiratory failure, currently on high flow oxygen at 8 L per minute nasal cannula. The patient developed diffuse but the pulmonary infiltrates. Consider pulmonary edema/CHF. Pneumonia is felt to be less likely. 2 COPD advanced with bullous changes bilaterally 3 C. diff colitis currently on oral vancomycin. The patient was also started on doxycycline regarding COPD exacerbation 4 CHF with diastolic failure and a preserved LV function 5 chronic atrial fibrillation, with a controlled rate 6 squamous cell carcinoma of the lung with a previous left upper lobe wedge resection 7 CVA/TIA 8 hypertension 9 hyperlipidemia 10 coronary artery disease with previous VA 11 chronic anemia with a hemoglobin of 7.4 on 12 history of adenocarcinoma of the colon, post nephroscopic sigmoid colectomy 13 previous history of GI bleed 14 chronic back pain 15 impaired performance and functional status secondary to above-mentioned comorbidities 16 leukopenia likely relating to underlying sepsis, clinically the patient is improving 17 chronic macrocytic anemia Plan: We'll continue with current medical treatment, FiO2 is down to 2 L, continue encouraging deep breathing and coughing, continue current antibiotic coverage, there has been no fever or chills, hemodynamically patient is stable, breathing has improved, he denies any specific complaints, no diarrhea the last 24 hours. Blood culture showed no growth. Today's chest x-ray has been reviewed with Dr. Pelaez, revealing stable findings with the background of emphysematous changes and interstitial lung disease with superimposed interstitial edema and the possibility of pneumonia not entirely excluded. White blood cell count up to 1.5, hemoglobin is 7.6, related to underlying sepsis, clinically patient is improving, continue to follow, he stable to be transferred to general medical floor today. I performed a history & physical examination of the patient and discussed their management with my nurse practitioner, Radha Suggs. I reviewed the nurse practitioner's note and agree with the documented findings and plan of care. Lung sounds are positive for basilar crackles. The findings and the impression was discussed with the patient. I attest to the documentation by the nurse practitioner. Time with Patient: Less than 30
[2018-11-06 10:27] LABS: Lymphocytes # (M) 0.18 k/uL (1.0-4.8); Monocytes # (M) 0.07 k/uL (0-1.0); Myelocytes # (M) 0.01 k/uL (0); Myelocytes % 1 %; Neutrophils % (M) 80 %; Ovalocytes Present; RBC Fragments Present
[2018-11-06 11:35] LABS: Glucose,Whole Blood 207 mg/dL (75-99)
[2018-11-06 17:24] LABS: Glucose,Whole Blood 154 mg/dL (75-99)
[2018-11-06 20:41] LABS: Glucose,Whole Blood 175 mg/dL (75-99)
--- NOTE | 2018-11-06 22:34 | P.PN ---
Subjective Progress Note Date: 11/06/18 68-year-old male presents to the emergency center from the extended care facility with increasing weakness and increasing shortness of breath. The patient is known to the facility that he was recently discharged which point in time he was having difficulty with abdominal pain and frequent diarrhea. Workup revealed evidence of clostridium difficile colitis. And he was discharged back to the extended care facility on oral vancomycin therapy appropriately. The patient has multiple underlying medical issues which includes coronary artery disease, COPD and history of stroke. During his recent hospital stay he did have ongoing cardiac issues apparently with atrial fibrillation with rapid ventricular response and heart failure. At admission the patient was weak and ill however rapidly deteriorated and required a rapid response evaluation. With evidence of respiratory failure and was transferred to the intensive care unit and treated with BiPAP. The patient is now feeling somewhat better but is still weak and ill. He has less short of breath. He's denying discomforts in his [address]. He relates his abdominal discomfort and diarrhea have improved 11/05/2018 the patient is feeling somewhat better today. He is not having fevers or chills. His respiratory status is improved. It is not having diarrhea today. 11/06/2018 reveals the patient feeling somewhat better today. No fevers or chills, no diarrhea, Less short of breath. Still feels very weak overall. Objective - Vital Signs Vital signs: Vital Signs Temp 97.2 F L 11/06/18 16:00 Pulse 89 11/06/18 19:31 Resp 20 11/06/18 16:00 BP 129/68 11/06/18 16:00 Pulse Ox 96 11/06/18 16:00 Intake & Output 11/06/18 11/06/18 11/07/18 06:59 18:59 06:59 Intake Total 1160 1240 240 Output Total 1197 765 70 Balance -37 475 170 Weight 71.4 kg Intake: IV 320 400 0.9Normal Saline @ 20 ml/ 220 100 hour Doxycycline 100 mg In 100 100 Sodium Chloride 0.9% 100 ml @ 100 mls/hr IVPB Q12HR [facility] Rx#:[id number] Magnesium Sulfate-D5w Pmx 200 1 gm In Dextrose/Water 1 100ml.bag @ 100 mls/hr IVPB Q1H [facility] Rx#: [id number] Oral 840 840 240 Output: Urine 1197 765 70 Other: Voiding Method Indwelling Catheter Indwelling Catheter - Exam HEENT: Anicteric, conjunctiva are pink and moist, nasal or oral mucosa are without lesion. The neck is supple without lymphadenopathy or thyromegaly. No oral thrush is noted. Lungs: symmetrical air entry is noted, coarse crackles at the lung love decreased breath sounds to the bilateral bases Heart: irregular without murmur click or rub Abdomen: Positive bowel sounds, soft minimal tenderness in the lower quadrants, there is no palpable masses or organomegaly. Abdomen is without guarding or rebound. Extremities:Upper extremities reveal evidence of equal pulses, no lesions are seen, no petechiae or telangiectasia. The lower extremities have no significant edema, peripheral pulses were 2+ and symmetric, no lesions or ulcerations are seen. Capillary refill was brisk. Skin: Intact without significant rash or lesions. Neuro:the patient is arousable and follows simple commands answer simple questions is very fatigued Musculoskeletal: Patient is bedbound No acute joint effusions are noted. Lymph: No cervical, supraclavicular, axillary, epitrochlear, or inguinal lymphadenopathy was noted. - Labs CBC & Chem 7: 11/06/18 07:32 11/06/18 05:29 Labs: Abnormal Lab Results - Last 24 Hours (Table) 11/05/18 11/06/18 11/06/18 Range/Units 05:20 05:29 05:29 WBC 1.3 L* (3.8-10.6) k/uL RBC 2.09 L (4.30-5.90) m/uL Hgb 6.6 L* (13.0-17.5) gm/dL Hct 21.7 L (39.0-53.0) % MCV 103.5 H (80.0-100.0) fL MCHC 30.4 L (31.0-37.0) g/dL RDW 26.8 H (11.5-15.5) % Plt Count 119 L (150-450) k/uL Neutrophils # (1.3-7.7) k/uL Neutrophils # (Manual) 1.00 L (1.3-7.7) k/uL Lymphocytes # (1.0-4.8) k/uL Lymphocytes # (Manual) 0.18 L (1.0-4.8) k/uL Myelocytes # (Manual) 0.01 H (0) k/uL Blast Cells # (Man) 0.04 H (0) k/uL Macrocytosis Marked A BUN 21 H (9-20) mg/dL Glucose 156 H (74-99) mg/dL POC Glucose (mg/dL) (75-99) mg/dL Calcium 8.1 L (8.4-10.2) mg/dL AST 15 L (17-59) U/L ALT 17 L (21-72) U/L Alkaline Phosphatase 29 L (38-126) U/L Total Protein 4.9 L (6.3-8.2) g/dL Albumin 2.6 L (3.5-5.0) g/dL Procalcitonin 0.84 H (0.02-0.09) ng/mL 11/06/18 11/06/18 11/06/18 Range/Units 06:57 07:32 11:31 WBC 1.5 L (3.8-10.6) k/uL RBC 2.40 L (4.30-5.90) m/uL Hgb 7.6 L (13.0-17.5) gm/dL Hct 25.4 L (39.0-53.0) % MCV 106.1 H (80.0-100.0) fL MCHC 30.0 L (31.0-37.0) g/dL RDW 26.7 H (11.5-15.5) % Plt Count (150-450) k/uL Neutrophils # 1.1 L (1.3-7.7) k/uL Neutrophils # (Manual) (1.3-7.7) k/uL Lymphocytes # 0.3 L (1.0-4.8) k/uL Lymphocytes # (Manual) (1.0-4.8) k/uL Myelocytes # (Manual) (0) k/uL Blast Cells # (Man) (0) k/uL Macrocytosis Marked A BUN (9-20) mg/dL Glucose (74-99) mg/dL POC Glucose (mg/dL) 173 H 207 H (75-99) mg/dL Calcium (8.4-10.2) mg/dL AST (17-59) U/L ALT (21-72) U/L Alkaline Phosphatase (38-126) U/L Total Protein (6.3-8.2) g/dL Albumin (3.5-5.0) g/dL Procalcitonin (0.02-0.09) ng/mL 11/06/18 11/06/18 Range/Units 17:20 20:37 WBC (3.8-10.6) k/uL RBC (4.30-5.90) m/uL Hgb (13.0-17.5) gm/dL Hct (39.0-53.0) % MCV (80.0-100.0) fL MCHC (31.0-37.0) g/dL RDW (11.5-15.5) % Plt Count (150-450) k/uL Neutrophils # (1.3-7.7) k/uL Neutrophils # (Manual) (1.3-7.7) k/uL Lymphocytes # (1.0-4.8) k/uL Lymphocytes # (Manual) (1.0-4.8) k/uL Myelocytes # (Manual) (0) k/uL Blast Cells # (Man) (0) k/uL Macrocytosis BUN (9-20) mg/dL Glucose (74-99) mg/dL POC Glucose (mg/dL) 154 H 175 H (75-99) mg/dL Calcium (8.4-10.2) mg/dL AST (17-59) U/L ALT (21-72) U/L Alkaline Phosphatase (38-126) U/L Total Protein (6.3-8.2) g/dL Albumin (3.5-5.0) g/dL Procalcitonin (0.02-0.09) ng/mL Microbiology - Last 24 Hours (Table) 11/03/18 18:20 Blood Culture - Preliminary Blood No Growth after 72 hours Laboratory Results WBC 1.5 k/uL (3.8-10.6) L 11/06/18 07:32 RBC 2.40 m/uL (4.30-5.90) L 11/06/18 07:32 Hgb 7.6 gm/dL (13.0-17.5) L 11/06/18 07:32 Hct 25.4 % (39.0-53.0) L 11/06/18 07:32 MCV 106.1 fL (80.0-100.0) H 11/06/18 07:32 MCH 31.9 pg (25.0-35.0) 11/06/18 07:32 MCHC 30.0 g/dL (31.0-37.0) L 11/06/18 07:32 RDW 26.7 % (11.5-15.5) H 11/06/18 07:32 Plt Count 150 k/uL (150-450) 11/06/18 07:32 Neutrophils % 70 % 11/06/18 07:32 Neutrophils % (Manual) 80 % 11/06/18 05:29 Band Neutrophils % 1 % 11/06/18 05:29 Lymphocytes % 19 % 11/06/18 07:32 Lymphocytes % (Manual) 14 % 11/06/18 05:29 Monocytes % 7 % 11/06/18 07:32 Monocytes % (Manual) 5 % 11/06/18 05:29 Eosinophils % 1 % 11/06/18 07:32 Eosinophils % (Manual) 1 % 11/04/18 11:37 Basophils % 0 % 11/06/18 07:32 Metamyelocytes % 1 % 11/04/18 11:37 Myelocytes % 1 % 11/06/18 05:29 Blast Cells % % 11/06/18 05:29 Neutrophils # 1.1 k/uL (1.3-7.7) L 11/06/18 07:32 Neutrophils # (Manual) 1.00 k/uL (1.3-7.7) L 11/06/18 05:29 Lymphocytes # 0.3 k/uL (1.0-4.8) L 11/06/18 07:32 Lymphocytes # (Manual) 0.18 k/uL (1.0-4.8) L 11/06/18 05:29 Monocytes # 0.1 k/uL (0-1.0) 11/06/18 07:32 Monocytes # (Manual) 0.07 k/uL (0-1.0) 11/06/18 05:29 Eosinophils # 0.0 k/uL (0-0.7) 11/06/18 07:32 Eosinophils # (Manual) 0.19 k/uL (0-0.7) 11/04/18 11:37 Basophils # 0.0 k/uL (0-0.2) 11/06/18 07:32 Metamyelocytes # (Man) 0.19 k/uL (0) H 11/04/18 11:37 Myelocytes # (Manual) 0.01 k/uL (0) H 11/06/18 05:29 Blast Cells # (Man) 0.04 k/uL (0) H 11/06/18 05:29 Nucleated RBCs 0 /100 WBC (0-0) 11/06/18 05:29 Differential Comment 11/06/18 05:29 Manual Slide Review Performed 11/06/18 05:29 Polychromasia Present 11/06/18 05:29 Hypochromasia Marked 11/06/18 07:32 Poikilocytosis Moderate 11/06/18 07:32 Anisocytosis Marked 11/06/18 07:32 Microcytosis Slight 11/03/18 15:55 Macrocytosis Marked A 11/06/18 07:32 Ovalocytes Present 11/06/18 05:29 Fragmented RBCs Present 11/06/18 05:29 PT 11.6 sec (9.0-12.0) 11/03/18 15:55 INR 1.1 (<1.2) 11/03/18 15:55 APTT 25.5 sec (22.0-30.0) 11/03/18 15:55 Sample Site LRAD 11/04/18 12:04 ABG pH 7.47 (7.35-7.45) H 11/04/18 12:04 ABG pCO2 27 mmHg (35-45) L 11/04/18 12:04 ABG pO2 100 mmHg (83-108) 11/04/18 12:04 ABG HCO3 20 mmol/L (21-25) L 11/04/18 12:04 ABG Total CO2 21 mmol/L (19-24) 11/04/18 12:04 ABG O2 Saturation 98.4 % (94-97) H 11/04/18 12:04 ABG Base Excess -3.9 mmol/L 11/04/18 12:04 Oliver Test Yes 11/04/18 12:04 FiO2 50 % 11/04/18 12:04 Sodium 137 mmol/L (137-145) 11/06/18 05:29 Potassium 3.6 mmol/L (3.5-5.1) 11/06/18 05:29 Chloride 105 mmol/L (98-107) 11/06/18 05:29 Carbon Dioxide 23 mmol/L (22-30) 11/06/18 05:29 Anion Gap 9 mmol/L 11/06/18 05:29 BUN 21 mg/dL (9-20) H 11/06/18 05:29 Creatinine 0.83 mg/dL (0.66-1.25) 11/06/18 05:29 Est GFR (CKD-EPI)AfAm >90 (>60 ml/min/1.73 sqM) 11/06/18 05:29 Est GFR (CKD-EPI)NonAf 89 (>60 ml/min/1.73 sqM) 11/06/18 05:29 Glucose 156 mg/dL (74-99) H 11/06/18 05:29 POC Glucose (mg/dL) 175 mg/dL (75-99) H 11/06/18 20:37 POC Glu Template Storage Clerk ID Plunkett, Sayra 11/06/18 20:37 Lactic Ac Sepsis Rflx Y 11/04/18 13:42 Plasma Lactic Acid Jhonny 1.0 mmol/L (0.7-2.0) 11/04/18 17:23 Calcium 8.1 mg/dL (8.4-10.2) L 11/06/18 05:29 Phosphorus 3.6 mg/dL (2.5-4.5) 11/06/18 05:29 Magnesium 1.9 mg/dL (1.6-2.3) 11/06/18 05:29 Total Bilirubin 0.4 mg/dL (0.2-1.3) 11/06/18 05:29 AST 15 U/L (17-59) L 11/06/18 05:29 ALT 17 U/L (21-72) L 11/06/18 05:29 Alkaline Phosphatase 29 U/L (38-126) L 11/06/18 05:29 Troponin I <0.012 ng/mL (0.000-0.034) 11/03/18 15:55 NT-Pro-B Natriuret Pep 57283 pg/mL 11/04/18 11:37 Total Protein 4.9 g/dL (6.3-8.2) L 11/06/18 05:29 Albumin 2.6 g/dL (3.5-5.0) L 11/06/18 05:29 Procalcitonin 0.84 ng/mL (0.02-0.09) H 11/05/18 05:20 TSH 1.290 mIU/L (0.465-4.680) 11/03/18 15:55 Urine Color Yellow 11/03/18 17:20 Urine Appearance Clear (Clear) 11/03/18 17:20 Urine pH 6.5 (5.0-8.0) 11/03/18 17:20 Ur Specific [place] 1.022 (1.001-1.035) 11/03/18 17:20 Urine Protein 1+ (Negative) H 11/03/18 17:20 Urine Glucose (UA) Negative (Negative) 11/03/18 17:20 Urine Ketones Negative (Negative) 11/03/18 17:20 Urine Blood Negative (Negative) 11/03/18 17:20 Urine Nitrite Negative (Negative) 11/03/18 17:20 Urine Bilirubin Negative (Negative) 11/03/18 17:20 Urine Urobilinogen <2.0 mg/dL (<2.0) 11/03/18 17:20 Ur Leukocyte Esterase Negative (Negative) 11/03/18 17:20 Urine RBC <1 /hpf (0-5) 11/03/18 17:20 Urine WBC 1 /hpf (0-5) 11/03/18 17:20 Hyaline Casts 3 /lpf (0-2) H 11/03/18 17:20 Urine Mucus Rare /hpf (None) H 11/03/18 17:20 Stool Occult Blood Negative (Negative) 11/03/18 17:30 Microbiology 11/03/18 18:20 Blood Blood Culture - Preliminary No Growth after 72 hours Assessment and Plan (1) C. difficile colitis Narrative/Plan: 68-year-old male that has multiple medical troubles presents from extended care facility with increasing weakness and shortness of breath. Shortly after admiss ion his respiratory status further worsened. Imaging studies are reviewed and patient has evidence of significant infiltrates bilaterally. The patient is receiving diuresis and was placed on BiPAP therapy and is started to have improvement.the patient has not had fever but has had a significant increase of his leukocytosis since admission. This however appears to be stress related and is occurred upon review of the history multiple times in the past. It is unlikely that he has a significant pneumonia at this time is much more likely that he has acute exacerbation Of COPD with acute on chronic systolic heart failure with pulmonary edema. Would limit antibiotic therapy is much as possible given his recent history of C. difficile colitis. Oral vancomycin will continue for now. Antimicrobial therapy based on prior cultures will be with doxycycline IV 100 mg twice a day for now with overall goal to limit antimicrobial therapy. Cultures will further help direct course of therapy. October patient is feeling better today. He is less short of breath. He is not having diarrhea. No difficulties with the antibiotic therapy with doxycycline. Oral vancomycin without difficulty. His respiratory status is improved and will continue with current treatment. Blood cultures are negative. 11/06/2018 reveals the patient had a further improvement of his status. The short of breath. His O2 is down to 2 L nasal cannula. No significant diarrhea responding well to vancomycin orally therapy. COPD exacerbation being treated with doxycycline fortunately no worsening of diarrhea. Transition to oral doxycycline 100 mg twice a day for 7 days is transferred tomorrow Current Visit: No Status: Acute Code(s): A04.72 - ENTEROCOLITIS D/T CLOSTRIDIUM DIFFICILE, NOT SPCF RECUR SNOMED Code(s): 820626833 (2) COPD (chronic obstructive pulmonary disease) Current Visit: No Status: Acute Code(s): J44.9 - CHRONIC OBSTRUCTIVE PULMONARY DISEASE, UNSPECIFIED SNOMED Code(s): 55040114 (3) Acute pulmonary edema with congestive heart failure Current Visit: Yes Status: Acute Code(s): I50.1 - LEFT VENTRICULAR FAILURE, UNSPECIFIED SNOMED Code(s): 17229101
[2018-11-07] MEDS: methylPREDNISolone SOD SUCCI 125 MG/2 ML VIAL IV SCH ×3 (00:23→13:44)
[2018-11-07] MEDS: HEPARIN SODIUM,PORCINE 5,000 UNIT/ML 1 ML VIAL SQ SCH ×2 (00:23→10:32)
--- NOTE | 2018-11-07 00:46 | P.PN ---
Subjective Mr. Davila is a 68-year-old male with a past medical history of GERD, hypertension, hyperlipidemia, coronary artery disease, seizure disorder, who is a resident of [facility] brought in by the EMS for weakness. Patient was recently admitted to the hospital earlier this month for hypoxemic respiratory failure and C. diff colitis. Patient was discharged on antibiotics. But for the past couple of days patient has generalized weakness and fatigue and he also had a fever then he was brought into the hospital. Overnight the patient received a dose of vancomycin and cefepime and was admitted to the floors with IV fluids. This morning patient was developed acute worsening of his respiratory status and he was tachycardic. So 18 minus:, He was started on BiPAP. As he was having diffuse crackles he was given a dose of Lasix and his IV fluids were stopped. Later on patient was transferred to the ICU. In the ICU patient was started on BiPAP. The patient had a chest x-ray done which was showing pulmonary vascular congestion along with diffuse bilateral infiltrates. Dr. Cortez from [facility] evaluated the patient and changed his antibiotics to doxycycline. He was also started on by mouth vancomycin as he had to complete the dose for his C. diff colitis from last visit. On 11/05/18 - patient is still in the ICU. His oxygen requirements decreased overnight. He is currently on 8 L of high flow oxygen. Patient still complains of mild difficulty in breathing but states better than yesterday. He denies having any chest pain or palpitations. Patient was put on BiPAP overnight. Patient has been started on Solu-Medrol. Patient had an echocardiogram done showing ejection fraction of 60-65%, but it is a suboptimal study. Chest x-ray done this morning shows improvement any radiation. 11/06/2018 Patient remains in the ICU today however his been already evaluated by critical care team and he was transferred to the general medical floor as overflow. patient was lying comfortable in his incliner, no chest pain , with some dyspnea. He feels generally weak. He is hemodynamically stable and he is saturating 97% on 2 L nasal cannula. No more fever since yesterday of 100.7. His labs reviewed and his WBC is slightly improved to 1.5K, hemoglobin is 7.6. Platelet count 150 which is within normal limits. BMP was unremarkable with normal electrolytes of sodium and potassium and creatinine. Liver enzymes elevated. Chest x-ray from today: Emphysema and interstitial lung disease, possible pneumonia versus edema. Objective - Vital Signs Vital signs: Vital Signs Temp 97.5 F L 11/06/18 08:00 Pulse 86 11/06/18 11:21 Resp 16 11/06/18 11:21 BP 128/65 11/06/18 10:00 Pulse Ox 97 11/06/18 10:00 Intake & Output 11/05/18 11/06/18 11/06/18 18:59 06:59 18:59 Intake Total 1460 1160 970 Output Total 2245 1197 675 Balance -785 -37 295 Weight 71.4 kg Intake: IV 1460 320 370 0.9Normal Saline @ 20 ml/ 40 220 70 hour Doxycycline 100 mg In 100 100 100 Sodium Chloride 0.9% 100 ml @ 100 mls/hr IVPB Q12HR [facility] Rx#:[id number] Magnesium Sulfate-D5w Pmx 200 200 1 gm In Dextrose/Water 1 100ml.bag @ 100 mls/hr IVPB Q1H [facility] Rx#: [id number] Potassium Chloride 10 meq 220 In Water For Injection 1 100ml.bag @ 100 mls/hr IVPB Q1H [facility] Rx#: [id number] Sodium Chloride 0.9% 1, 900 000 ml @ 100 mls/hr IV . Q10H [facility] Rx#:[id number] Oral 840 600 Output: Urine 2245 1197 675 Other: Voiding Method Indwelling Catheter Indwelling Catheter Indwelling Catheter # Bowel Movements 1 - Exam GEN. APPEARANCE: Thin, chronically ill-appearing HEENT - no pallor. No icterus. NECK EXAM: normal inspection. Absent: tenderness, meningismus, full ROM, lymphadenopathy RESPIRATORY EXAM: Coarse breath sounds bilaterally. Crackles at the lower lung bases bilaterally CARDIOVASCULAR EXAM: tachycardia GI/ABDOMINAL EXAM: soft, normal bowel sounds. Absent: distended, tenderness, guarding, rebound, rigid EXTREMITIES EXAM: No edema. NEUROLOGICAL EXAM: alert, oriented X3, no focal deficits. SKIN EXAM: warm, dry, intact, normal color. Absent: rash - Labs CBC & Chem 7: 11/06/18 07:32 11/06/18 05:29 Labs: Abnormal Lab Results - Last 24 Hours (Table) 11/05/18 11/06/18 11/06/18 Range/Units 05:20 05:29 05:29 WBC 1.3 L* (3.8-10.6) k/uL RBC 2.09 L (4.30-5.90) m/uL Hgb 6.6 L* (13.0-17.5) gm/dL Hct 21.7 L (39.0-53.0) % MCV 103.5 H (80.0-100.0) fL MCHC 30.4 L (31.0-37.0) g/dL RDW 26.8 H (11.5-15.5) % Plt Count 119 L (150-450) k/uL Neutrophils # (1.3-7.7) k/uL Neutrophils # (Manual) 1.00 L (1.3-7.7) k/uL Lymphocytes # (1.0-4.8) k/uL Lymphocytes # (Manual) 0.18 L (1.0-4.8) k/uL Myelocytes # (Manual) 0.01 H (0) k/uL Blast Cells # (Man) 0.04 H (0) k/uL Macrocytosis Marked A BUN 21 H (9-20) mg/dL Glucose 156 H (74-99) mg/dL POC Glucose (mg/dL) (75-99) mg/dL Calcium 8.1 L (8.4-10.2) mg/dL AST 15 L (17-59) U/L ALT 17 L (21-72) U/L Alkaline Phosphatase 29 L (38-126) U/L Total Protein 4.9 L (6.3-8.2) g/dL Albumin 2.6 L (3.5-5.0) g/dL Procalcitonin 0.84 H (0.02-0.09) ng/mL 11/06/18 11/06/18 11/06/18 Range/Units 06:57 07:32 11:31 WBC 1.5 L (3.8-10.6) k/uL RBC 2.40 L (4.30-5.90) m/uL Hgb 7.6 L (13.0-17.5) gm/dL Hct 25.4 L (39.0-53.0) % MCV 106.1 H (80.0-100.0) fL MCHC 30.0 L (31.0-37.0) g/dL RDW 26.7 H (11.5-15.5) % Plt Count (150-450) k/uL Neutrophils # 1.1 L (1.3-7.7) k/uL Neutrophils # (Manual) (1.3-7.7) k/uL Lymphocytes # 0.3 L (1.0-4.8) k/uL Lymphocytes # (Manual) (1.0-4.8) k/uL Myelocytes # (Manual) (0) k/uL Blast Cells # (Man) (0) k/uL Macrocytosis Marked A BUN (9-20) mg/dL Glucose (74-99) mg/dL POC Glucose (mg/dL) 173 H 207 H (75-99) mg/dL Calcium (8.4-10.2) mg/dL AST (17-59) U/L ALT (21-72) U/L Alkaline Phosphatase (38-126) U/L Total Protein (6.3-8.2) g/dL Albumin (3.5-5.0) g/dL Procalcitonin (0.02-0.09) ng/mL Microbiology - Last 24 Hours (Table) 11/03/18 18:20 Blood Culture - Preliminary Blood No Growth after 48 hours Assessment and Plan Assessment: Acute hypoxic respiratory failure Acute diastolic congestive heart failure Atrial fibrillation with rapid ventricular rate Recent C. diff infection, currently still on antibiotic Chronic atrial fibrillation- not a good candidate for and accommodation due to prior history of bleeding COPD History of sigmoid diverticulitis History of left upper lobe mass with a wedge dissection for squamous cell cancer Coronary artery disease with history of prior [place] GERD Hypertension Hyperlipidemia Chronic seizure disorder Plan: Patient is still requiring 8 L of oxygen. His antibiotics have been changed to doxycycline and and by mouth vancomycin for his recent C. diff. Patient does not have diarrhea currently. He is on BiPAP at night. Chest x-ray showed significant improvement since giving him IV Lasix. For now he will be continued on IV Lasix, Solu-Medrol, breathing treatments. Overall prognosis remains guarded. Further recommendations to follow depending on the progress of the patient.
[2018-11-07] MEDS: PANTOPRAZOLE 40 MG/10 ML VIAL IV SCH (01:17)
[2018-11-07] MEDS: VANCOMYCIN ORAL SOLUTION 250 MG/5 ML BOTTLE PO SCH ×4 (01:33→17:37)
[2018-11-07 04:53] LABS: Anisocytosis Marked; HCT 20.7 % (39.0-53.0); Hypochromasia Marked; MCH 34.6 pg (25.0-35.0); MCHC 32.6 g/dL (31.0-37.0); MCV 106.3 fL (80.0-100.0); Macrocytosis Marked; Mean Platelet Volume 8.8; Platelet Count 161 k/uL (150-450); Poikilocytosis Slight; RBC 1.95 m/uL (4.30-5.90); WBC 2.9 k/uL (3.8-10.6)
[2018-11-07 04:54] LABS: RDW 27.2 % (11.5-15.5)
[2018-11-07 04:55] LABS: HGB 6.7 gm/dL (13.0-17.5)
[2018-11-07 05:10] LABS: ALT 15 U/L (21-72); AST 19 U/L (17-59); Albumin 2.7 g/dL (3.5-5.0); Alkaline Phosphatase 31 U/L (38-126); Anion Gap 11 mmol/L; Blood Urea Nitrogen 24 mg/dL (9-20); Calcium 8.6 mg/dL (8.4-10.2); Carbon Dioxide 20 mmol/L (22-30); Chloride 105 mmol/L (98-107); Glucose 112 mg/dL (74-99); Potassium 3.8 mmol/L (3.5-5.1); Sodium 136 mmol/L (137-145); Total Bilirubin 0.4 mg/dL (0.2-1.3)
[2018-11-07 06:36] LABS: Glucose,Whole Blood 109 mg/dL (75-99)
[2018-11-07 06:38] LABS: Anisocytosis Marked; HCT 22.3 % (39.0-53.0); Hypochromasia Marked; MCH 31.7 pg (25.0-35.0); MCHC 30.1 g/dL (31.0-37.0); MCV 105.1 fL (80.0-100.0); Macrocytosis Marked; Mean Platelet Volume 9.4; Platelet Count 155 k/uL (150-450); Poikilocytosis Moderate; RBC 2.12 m/uL (4.30-5.90); WBC 3.9 k/uL (3.8-10.6)
[2018-11-07] MEDS: INSULIN ASPART (NovoLOG) 100 UNIT/ML VIAL SQ SCH ×4 (06:39→21:22)
[2018-11-07 06:42] LABS: HGB 6.7 gm/dL (13.0-17.5); RDW 26.6 % (11.5-15.5)
[2018-11-07] MEDS: LEVOTHYROXINE 50 MCG TAB PO SCH (06:42)
[2018-11-07] MEDS: IPRATROPIUM-ALBUTEROL 3 ML NEB INHALATION SCH ×4 (08:07→19:43)
--- NOTE | 2018-11-07 08:13 | P.PN ---
Subjective Mr. Davila is a 68-year-old male with a past medical history of GERD, hypertension, hyperlipidemia, coronary artery disease, seizure disorder, who is a resident of [facility] brought in by the EMS for weakness. Patient was recently admitted to the hospital earlier this month for hypoxemic respiratory failure and C. diff colitis. Patient was discharged on antibiotics. But for the past couple of days patient has generalized weakness and fatigue and he also had a fever then he was brought into the hospital. Overnight the patient received a dose of vancomycin and cefepime and was admitted to the floors with IV fluids. This morning patient was developed acute worsening of his respiratory status and he was tachycardic. So 18 minus:, He was started on BiPAP. As he was having diffuse crackles he was given a dose of Lasix and his IV fluids were stopped. Later on patient was transferred to the ICU. In the ICU patient was started on BiPAP. The patient had a chest x-ray done which was showing pulmonary vascular congestion along with diffuse bilateral infiltrates. Dr. Cortez from [place] evaluated the patient and changed his antibiotics to doxycycline. He was also started on by mouth vancomycin as he had to complete the dose for his C. diff colitis from last visit. On 11/05/18 - patient is still in the ICU. His oxygen requirements decreased overnight. He is currently on 8 L of high flow oxygen. Patient still complains of mild difficulty in breathing but states better than yesterday. He denies having any chest pain or palpitations. Patient was put on BiPAP overnight. Patient has been started on Solu-Medrol. Patient had an echocardiogram done showing ejection fraction of 60-65%, but it is a suboptimal study. Chest x-ray done this morning shows improvement any radiation. 11/06/2018 Patient remains in the ICU today however his been already evaluated by critical care team and he was transferred to the general medical floor as overflow. patient was lying comfortable in his incliner, no chest pain , with some dyspnea. He feels generally weak. He is hemodynamically stable and he is saturating 97% on 2 L nasal cannula. No more fever since yesterday of 100.7. His labs reviewed and his WBC is slightly improved to 1.5K, hemoglobin is 7.6. Platelet count 150 which is within normal limits. BMP was unremarkable with normal electrolytes of sodium and potassium and creatinine. Liver enzymes elevated. Chest x-ray from today: Emphysema and interstitial lung disease, possible pneumonia versus edema. 11/07/2018 Patient seen and evaluated today in the ICU. He was fully awake and oriented, sitting on the bed having his breakfast. Patient looks pale however he denies chest pain or dyspnea. No abdominal pain. No leg swelling. No fever. He is still febrile for more than 24 hours. Slightly tachycardic and tachypneic. His blood pressure 137/75 and saturating 96% on 2 L. Labs showed drop in hemoglobin 7.6 down to 6.7. He has history of anemia before with similar problem. One unit of blood transfusion is given after explaining the risks and benefits and to the patient to which she verbalized understanding and acceptance. Anemia workup is ordered. Midline is ordered for poor IV access. Creatinine 0.9 and liver enzymes elevated. Chest x-ray: Emphysema and interstitial lung disease Review of systems CONSTITUTIONAL: No fever, no malaise, no fatigue. HEENT: No recent visual problems or hearing problems. Denied any sore throat. CARDIOVASCULAR: No orthopnea, PND, no palpitations, no syncope. PULMONARY: no hemoptysis. GASTROINTESTINAL: No diarrhea, no nausea, no vomiting, no abdominal pain. Normoactive bowel sounds. NEUROLOGICAL: No headaches, no weakness, no numbness. HEMATOLOGICAL: Denies any bleeding or petechiae. GENITOURINARY: Denies any burning micturition, frequency, or urgency. MUSCULOSKELETAL/RHEUMATOLOGICAL: Denies any joint pain, swelling, or any muscle pain. ENDOCRINE: Denies any polyuria or polydipsia. Medication: Albuterol, Tylenol, aspirin, bisacodyl, Tums, Tegretol, Depakote, doxycycline, Pepcid, Lasix, ferrous sulfate, Neurontin, heparin, insulin NovoLog , Synthroid, Solu-Medrol, metoprolol, potassium chloride, Paxil, Flomax, vancomycin orally. Objective - Vital Signs Vital signs: Vital Signs Temp 97.2 F L 11/06/18 16:00 Pulse 101 H 11/07/18 05:05 Resp 21 11/07/18 05:05 BP 137/75 11/07/18 05:05 Pulse Ox 96 11/07/18 05:05 Intake & Output 11/06/18 11/07/18 11/07/18 18:59 06:59 18:59 Intake Total 1240 240 Output Total 765 555 Balance 475 -315 Intake: IV 400 0.9Normal Saline @ 20 ml/ 100 hour Doxycycline 100 mg In 100 Sodium Chloride 0.9% 100 ml @ 100 mls/hr IVPB Q12HR [facility] Rx#:[id number] Magnesium Sulfate-D5w Pmx 200 1 gm In Dextrose/Water 1 100ml.bag @ 100 mls/hr IVPB Q1H [facility] Rx#: [id number] Oral 840 240 Output: Urine 765 555 Other: Voiding Method Indwelling Catheter Indwelling Catheter - Exam GEN. APPEARANCE: Thin, chronically ill-appearing HEENT - no pallor. No icterus. NECK EXAM: normal inspection. Absent: tenderness, meningismus, full ROM, lymphadenopathy RESPIRATORY EXAM: Coarse breath sounds bilaterally. Crackles at the lower lung bases bilaterally CARDIOVASCULAR EXAM: tachycardia GI/ABDOMINAL EXAM: soft, normal bowel sounds. Absent: distended, tenderness, guarding, rebound, rigid EXTREMITIES EXAM: No edema. NEUROLOGICAL EXAM: alert, oriented X3, no focal deficits. SKIN EXAM: warm, dry, intact, normal color. Absent: rash - Labs CBC & Chem 7: 11/07/18 06:22 11/07/18 04:31 Labs: Abnormal Lab Results - Last 24 Hours (Table) 11/06/18 11/06/18 11/06/18 Range/Units 05:29 11:31 17:20 WBC (3.8-10.6) k/uL RBC (4.30-5.90) m/uL Hgb (13.0-17.5) gm/dL Hct (39.0-53.0) % MCV (80.0-100.0) fL MCHC (31.0-37.0) g/dL RDW (11.5-15.5) % Neutrophils # (Manual) 1.00 L (1.3-7.7) k/uL Lymphocytes # (Manual) 0.18 L (1.0-4.8) k/uL Myelocytes # (Manual) 0.01 H (0) k/uL Blast Cells # (Man) 0.04 H (0) k/uL Macrocytosis Sodium (137-145) mmol/L Carbon Dioxide (22-30) mmol/L BUN (9-20) mg/dL Glucose (74-99) mg/dL POC Glucose (mg/dL) 207 H 154 H (75-99) mg/dL ALT (21-72) U/L Alkaline Phosphatase (38-126) U/L Total Protein (6.3-8.2) g/dL Albumin (3.5-5.0) g/dL 11/06/18 11/07/18 11/07/18 Range/Units 20:37 04:31 04:31 WBC 2.9 L (3.8-10.6) k/uL RBC 1.95 L (4.30-5.90) m/uL Hgb 6.7 L* (13.0-17.5) gm/dL Hct 20.7 L (39.0-53.0) % MCV 106.3 H (80.0-100.0) fL MCHC (31.0-37.0) g/dL RDW 27.2 H (11.5-15.5) % Neutrophils # (Manual) (1.3-7.7) k/uL Lymphocytes # (Manual) (1.0-4.8) k/uL Myelocytes # (Manual) (0) k/uL Blast Cells # (Man) (0) k/uL Macrocytosis Marked A Sodium 136 L (137-145) mmol/L Carbon Dioxide 20 L (22-30) mmol/L BUN 24 H (9-20) mg/dL Glucose 112 H (74-99) mg/dL POC Glucose (mg/dL) 175 H (75-99) mg/dL ALT 15 L (21-72) U/L Alkaline Phosphatase 31 L (38-126) U/L Total Protein 5.0 L (6.3-8.2) g/dL Albumin 2.7 L (3.5-5.0) g/dL 11/07/18 11/07/18 Range/Units 06:22 06:32 WBC (3.8-10.6) k/uL RBC 2.12 L (4.30-5.90) m/uL Hgb 6.7 L* (13.0-17.5) gm/dL Hct 22.3 L (39.0-53.0) % MCV 105.1 H (80.0-100.0) fL MCHC 30.1 L (31.0-37.0) g/dL RDW 26.6 H (11.5-15.5) % Neutrophils # (Manual) (1.3-7.7) k/uL Lymphocytes # (Manual) (1.0-4.8) k/uL Myelocytes # (Manual) (0) k/uL Blast Cells # (Man) (0) k/uL Macrocytosis Marked A Sodium (137-145) mmol/L Carbon Dioxide (22-30) mmol/L BUN (9-20) mg/dL Glucose (74-99) mg/dL POC Glucose (mg/dL) 109 H (75-99) mg/dL ALT (21-72) U/L Alkaline Phosphatase (38-126) U/L Total Protein (6.3-8.2) g/dL Albumin (3.5-5.0) g/dL Microbiology - Last 24 Hours (Table) 11/03/18 18:20 Blood Culture - Preliminary Blood No Growth after 72 hours Assessment and Plan Assessment: Acute hypoxic respiratory failure Severe anemia, needing blood transfusion Acute diastolic congestive heart failure Atrial fibrillation with rapid ventricular rate Recent C. diff infection, currently still on antibiotic Chronic atrial fibrillation- not a good candidate for and accommodation due to prior history of bleeding COPD History of sigmoid diverticulitis History of left upper lobe mass with a wedge dissection for squamous cell cancer Coronary artery disease with history of prior [place] GERD Hypertension Hyperlipidemia Chronic seizure disorder Plan: Patient is still requiring 8 L of oxygen. His antibiotics have been changed to doxycycline and and by mouth vancomycin for his recent C. diff. Patient does not have diarrhea currently. Transfuse for hemoglobin less than 7, and follow- up anemia workup. Midline placement. He is on BiPAP at night. Chest x-ray showed significant improvement since giving him IV Lasix. For now he will be continued on IV Lasix, Solu-Medrol, breathing treatments. Overall prognosis remains guarded. Further recommendations to follow depending on the progress of the patient.
--- NOTE | 2018-11-07 08:36 | XR ---
EXAMINATION TYPE: XR chest 1V portable DATE OF EXAM: 11/07/2018 COMPARISON: 11/06/2018 HISTORY: Shortness of breath TECHNIQUE: Single frontal view of the chest is obtained. FINDINGS: Diffuse interstitial pattern seen with small bilateral effusions and pleural thickening. A therosclerotic change of the aorta. Prominent paratracheal stripe noted. Biapical pleural thickening. Heart size normal. Arthropathy of the shoulders. IMPRESSION: Diffuse interstitial pattern with more confluent density in the left perihilar and upper lobe. Correlate for idiopathic pulmonary fibrosis with superimposed venous congestion or interstitia l pneumonitis. Infiltrates at the lung bases and left perihilar region are stable. Underlying neoplas tic process not excluded.
[2018-11-07] MEDS: DIVALPROEX 500 MG TABLET.DR PO SCH ×2 (09:17→17:36)
[2018-11-07] MEDS: FAMOTIDINE 20 MG TAB PO SCH ×2 (09:17→17:36)
[2018-11-07] MEDS: FUROSEMIDE 10 MG/ML 4 ML VIAL IV SCH ×3 (09:18→21:23)
[2018-11-07] MEDS: FERROUS SULFATE 325 MG TAB PO SCH (09:18)
[2018-11-07] MEDS: carBAMazepine 200 MG TAB PO SCH ×2 (09:18→21:22)
[2018-11-07] MEDS: DOXYCYCLINE 100 MG in SODIUM CHLORIDE 0.9% 100 ML IVPB SCH ×3 (09:18→21:38)
[2018-11-07] MEDS: METOPROLOL SUCCINATE (ER) 25 MG TAB.ER.24H PO SCH (09:19)
[2018-11-07] MEDS: TAMSULOSIN 0.4 MG CAP.ER.24H PO SCH (09:19)
[2018-11-07] MEDS: PARoxetine 10 MG TAB PO SCH (09:19)
[2018-11-07] MEDS: ASPIRIN 81 MG PO SCH (10:32)
[2018-11-07 12:39] LABS: Glucose,Whole Blood 91 mg/dL (75-99)
--- NOTE | 2018-11-07 16:40 | P.PN ---
Subjective Progress Note Date: 11/07/18 On 11/07/2018, patient is calm and comfortable in recliner. On 2 L of oxygen by nasal cannula. No significant respiratory events. His overall poor status is stable pH chest x-ray findings are stable. No significant cough or sputum production pedal altered mentation. No significant diarrhea. The patient remains on bronchodilators. The patient remains on empiric antibiotic coverage with doxycycline patient is receiving oral vancomycin regarding history of C. diff colitis. He remains on IV Solu Medrol 60 mg IV push every 6 hours which showed be tapered as of today. Normal echocardiogram with an ejection fraction of 60% and some mild aortic valve sclerosis and mitral calcification. He is tolerating his diet. No other significant events overnight for now. Objective - Vital Signs Vital signs: Vital Signs Temp 97.5 F L 11/07/18 15:19 Pulse 82 11/07/18 15:40 Resp 19 11/07/18 15:19 BP 107/61 11/07/18 15:19 Pulse Ox 95 11/07/18 15:19 Intake & Output 11/06/18 11/07/18 11/07/18 18:59 06:59 18:59 Intake Total 1240 240 700 Output Total 431 387 1014 Balance 475 -354 -301 Intake: IV 400 100 0.9Normal Saline @ 20 ml/ 100 hour Doxycycline 100 mg In 100 100 Sodium Chloride 0.9% 100 ml @ 100 mls/hr IVPB Q12HR [facility] Rx#:[id number] Magnesium Sulfate-D5w Pmx 200 1 gm In Dextrose/Water 1 100ml.bag @ 100 mls/hr IVPB Q1H [facility] Rx#: [id number] Oral 840 240 600 Blood Product 0 Rc As-1 Unit 0 [id number] Output: Urine 566 [id number] [id number] Stool 1 Other: Voiding Method Indwelling Catheter Indwelling Catheter Indwelling Catheter - Exam Appearance the patient is calm and comfortable not in acute respiratory distress currently on oxygen at high flow at 2 L per minute nasal cannula. HEENT: Anicteric, conjunctiva are pink and moist, nasal or oral mucosa are without lesion. The neck is supple without lymphadenopathy or thyromegaly. No oral thrush is noted. Lungs: symmetrical air entry is noted, coarse crackles at the lung love decreased breath sounds to the bilateral bases Heart: irregular without murmur click or rub Abdomen: Positive bowel sounds, soft minimal tenderness in the lower quadrants, there is no palpable masses or organomegaly. Abdomen is without guarding or rebound. Extremities:Upper extremities reveal evidence of equal pulses, no lesions are seen, no petechiae or telangiectasia. The lower extremities have no significant edema, peripheral pulses were 2+ and symmetric, no lesions or ulcerations are seen. Capillary refill was brisk. Skin: Intact without significant rash or lesions. Neuro:the patient is arousable and follows simple commands answer simple questions is very fatigued Musculoskeletal: Patient is bedbound No acute joint effusions are noted. Lymph: No cervical, supraclavicular, axillary, epitrochlear, or inguinal lymphadenopathy was noted. - Labs CBC & Chem 7: 11/07/18 06:22 11/07/18 04:31 Labs: Abnormal Lab Results - Last 24 Hours (Table) 11/06/18 11/06/18 11/07/18 Range/Units 17:20 20:37 04:31 WBC 2.9 L (3.8-10.6) k/uL RBC 1.95 L (4.30-5.90) m/uL Hgb 6.7 L* (13.0-17.5) gm/dL Hct 20.7 L (39.0-53.0) % MCV 106.3 H (80.0-100.0) fL MCHC (31.0-37.0) g/dL RDW 27.2 H (11.5-15.5) % Macrocytosis Marked A Sodium (137-145) mmol/L Carbon Dioxide (22-30) mmol/L BUN (9-20) mg/dL Glucose (74-99) mg/dL POC Glucose (mg/dL) 154 H 175 H (75-99) mg/dL ALT (21-72) U/L Alkaline Phosphatase (38-126) U/L Total Protein (6.3-8.2) g/dL Albumin (3.5-5.0) g/dL Crossmatch 11/07/18 11/07/18 11/07/18 Range/Units 04:31 06:22 06:32 WBC (3.8-10.6) k/uL RBC 2.12 L (4.30-5.90) m/uL Hgb 6.7 L* (13.0-17.5) gm/dL Hct 22.3 L (39.0-53.0) % MCV 105.1 H (80.0-100.0) fL MCHC 30.1 L (31.0-37.0) g/dL RDW 26.6 H (11.5-15.5) % Macrocytosis Marked A Sodium 136 L (137-145) mmol/L Carbon Dioxide 20 L (22-30) mmol/L BUN 24 H (9-20) mg/dL Glucose 112 H (74-99) mg/dL POC Glucose (mg/dL) 109 H (75-99) mg/dL ALT 15 L (21-72) U/L Alkaline Phosphatase 31 L (38-126) U/L Total Protein 5.0 L (6.3-8.2) g/dL Albumin 2.7 L (3.5-5.0) g/dL Crossmatch 11/07/18 Range/Units 07:21 WBC (3.8-10.6) k/uL RBC (4.30-5.90) m/uL Hgb (13.0-17.5) gm/dL Hct (39.0-53.0) % MCV (80.0-100.0) fL MCHC (31.0-37.0) g/dL RDW (11.5-15.5) % Macrocytosis Sodium (137-145) mmol/L Carbon Dioxide (22-30) mmol/L BUN (9-20) mg/dL Glucose (74-99) mg/dL POC Glucose (mg/dL) (75-99) mg/dL ALT (21-72) U/L Alkaline Phosphatase (38-126) U/L Total Protein (6.3-8.2) g/dL Albumin (3.5-5.0) g/dL Crossmatch See Detail Microbiology - Last 24 Hours (Table) 11/03/18 18:20 Blood Culture - Preliminary Blood No Growth after 72 hours Assessment and Plan Plan: 1 acute hypoxic respiratory failure, improved secondary to a component of CHF and COPD exacerbation. The patient is currently on 2 L of oxygen by nasal cannula, comfortable not using accessory muscles of breathing. 2 COPD advanced with bullous changes bilaterally 3 C. diff colitis currently on oral vancomycin. The patient was also started on doxycycline regarding COPD exacerbation, repeat C. diff is negative 4 CHF with diastolic failure and a preserved LV function 5 chronic atrial fibrillation, with a controlled rate 6 squamous cell carcinoma of the lung with a previous left upper lobe wedge resection 7 CVA/TIA 8 hypertension 9 hyperlipidemia 10 coronary artery disease with previous [place] 11 chronic anemia with a hemoglobin of 6.9 and the patient is awaiting a unit of packed RBC transfusion. 12 history of adenocarcinoma of the colon, post nephroscopic sigmoid colectomy 13 previous history of GI bleed 14 chronic back pain 15 impaired performance and functional status secondary to above-mentioned comorbidities Plan This is a senior living resident. The patient is in the process of being transfused with a unit of packed RBC. Overall poor status is stable. Oxygenation is improved. We'll discontinue the IV Solu-Medrol. The patient prednisone burst taper. Watch for any signs of bleeding although there is no signs of bleeding at this point in time. He is also counseled is negative. The patient will receive his packed RBC transfusion and he will be transferred to medical surgical floor. Repeat C. diff came back also negative.
[2018-11-07 17:08] LABS: Glucose,Whole Blood 315 mg/dL (75-99)
[2018-11-07] MEDS ORDERED: INSULIN ASPART (NovoLOG) 100 UNIT/ML VIAL SQ ONE (17:29)
[2018-11-07 20:38] LABS: Glucose,Whole Blood 177 mg/dL (75-99)
[2018-11-07 22:00] LABS: Anisocytosis Marked; Basophils % (A) 0 %; Eosinophils % (A) 1 %; Hypochromasia Marked; Lymphocytes # (A) 0.5 k/uL (1.0-4.8); Lymphocytes % (A) 11 %; MCH 31.6 pg (25.0-35.0); MCHC 31.3 g/dL (31.0-37.0); Macrocytosis Marked; Mean Platelet Volume 9.6; Monocytes # (A) 0.2 k/uL (0-1.0); Monocytes % (A) 5 %; Neutrophils # (A) 3.6 k/uL (1.3-7.7); Neutrophils % (A) 82 %; Platelet Count 180 k/uL (150-450); Poikilocytosis Moderate; RBC 2.67 m/uL (4.30-5.90); WBC 4.4 k/uL (3.8-10.6)
[2018-11-07 22:01] LABS: HGB 8.4 gm/dL (13.0-17.5); RDW 25.1 % (11.5-15.5)
[2018-11-07 22:38] LABS: Ovalocytes Present; Poikilocytosis (M) Present; Polychromasia Present; Tear Drop Cells Present
[2018-11-08] MEDS: VANCOMYCIN ORAL SOLUTION 250 MG/5 ML BOTTLE PO SCH ×5 (00:09→22:59)
[2018-11-08 00:20] LABS: Iron Saturation 17.2 (15.00-50.00)
[2018-11-08 00:25] LABS: Folate, Serum 18.3 ng/mL
[2018-11-08 05:14] LABS: Anisocytosis Marked; HGB 8.8 gm/dL (13.0-17.5); Hypochromasia Marked; MCH 32.4 pg (25.0-35.0); MCHC 31.4 g/dL (31.0-37.0); Macrocytosis Marked; Mean Platelet Volume 8.8; Platelet Count 173 k/uL (150-450); Poikilocytosis Moderate; RBC 2.72 m/uL (4.30-5.90); RDW 25.1 % (11.5-15.5)
[2018-11-08 05:27] LABS: Anion Gap 6 mmol/L; Blood Urea Nitrogen 23 mg/dL (9-20); Calcium 8.4 mg/dL (8.4-10.2); Carbon Dioxide 28 mmol/L (22-30); Chloride 104 mmol/L (98-107); Glucose 58 mg/dL (74-99); Magnesium 1.5 mg/dL (1.6-2.3); Potassium 4.2 mmol/L (3.5-5.1); Sodium 138 mmol/L (137-145)
[2018-11-08] MEDS ORDERED: Magnesium Replacement Protocol 1 EACH MISC MISCELLANE PRN (05:44)
[2018-11-08 05:45] LABS: Band Neutrophils % 9 %; Lymphocytes # (M) 0.76 k/uL (1.0-4.8); Monocytes # (M) 0.22 k/uL (0-1.0); Neutrophils % (M) 55 %; Nucleated Red Blood Cells 2 /100 WBC (0-0); Poikilocytosis (M) Present; Total Cells Counted 200; WBC 2.7 k/uL (3.8-10.6)
[2018-11-08 05:46] LABS: Polychromasia Present; RBC Fragments Present
[2018-11-08] MEDS: MAGNESIUM SULFATE-D5W PMX 1 GM in DEXTROSE/WATER 1 100ML.BAG IVPB SCH ×2 (06:24→09:59)
[2018-11-08] MEDS: LEVOTHYROXINE 50 MCG TAB PO SCH (06:24)
[2018-11-08] MEDS: INSULIN ASPART (NovoLOG) 100 UNIT/ML VIAL SQ SCH ×4 (07:15→20:39)
[2018-11-08] MEDS: IPRATROPIUM-ALBUTEROL 3 ML NEB INHALATION SCH ×4 (07:31→20:10)
[2018-11-08 08:02] LABS: Glucose,Whole Blood 102 mg/dL (75-99)
[2018-11-08] MEDS: TAMSULOSIN 0.4 MG CAP.ER.24H PO SCH (08:40)
[2018-11-08] MEDS: DOXYCYCLINE 100 MG in SODIUM CHLORIDE 0.9% 100 ML IVPB SCH ×2 (08:40→20:32)
[2018-11-08] MEDS: METOPROLOL SUCCINATE (ER) 25 MG TAB.ER.24H PO SCH (08:40)
[2018-11-08] MEDS: FUROSEMIDE 10 MG/ML 4 ML VIAL IV SCH ×2 (08:40→20:32)
[2018-11-08] MEDS: predniSONE 20 MG TAB PO SCH (08:40)
[2018-11-08] MEDS: FAMOTIDINE 20 MG TAB PO SCH ×2 (08:40→16:47)
[2018-11-08] MEDS: ASPIRIN 81 MG PO SCH (08:40)
[2018-11-08] MEDS: carBAMazepine 200 MG TAB PO SCH ×2 (08:41→20:32)
[2018-11-08] MEDS: FERROUS SULFATE 325 MG TAB PO SCH (08:41)
[2018-11-08] MEDS: DIVALPROEX 500 MG TABLET.DR PO SCH ×2 (08:41→16:47)
[2018-11-08] MEDS: PARoxetine 10 MG TAB PO SCH (08:41)
[2018-11-08 11:50] LABS: Glucose,Whole Blood 104 mg/dL (75-99)
--- NOTE | 2018-11-08 11:58 | P.PN ---
Subjective Mr. Davila is a 68-year-old male with a past medical history of GERD, hypertension, hyperlipidemia, coronary artery disease, seizure disorder, who is a resident of [facility] brought in by the EMS for weakness. Patient was recently admitted to the hospital earlier this month for hypoxemic respiratory failure and C. diff colitis. Patient was discharged on antibiotics. But for the past couple of days patient has generalized weakness and fatigue and he also had a fever then he was brought into the hospital. Overnight the patient received a dose of vancomycin and cefepime and was admitted to the floors with IV fluids. This morning patient was developed acute worsening of his respiratory status and he was tachycardic. So 18 minus:, He was started on BiPAP. As he was having diffuse crackles he was given a dose of Lasix and his IV fluids were stopped. Later on patient was transferred to the ICU. In the ICU patient was started on BiPAP. The patient had a chest x-ray done which was showing pulmonary vascular congestion along with diffuse bilateral infiltrates. Dr. Cortez from [facility] evaluated the patient and changed his antibiotics to doxycycline. He was also started on by mouth vancomycin as he had to complete the dose for his C. diff colitis from last visit. On 11/05/18 - patient is still in the ICU. His oxygen requirements decreased overnight. He is currently on 8 L of high flow oxygen. Patient still complains of mild difficulty in breathing but states better than yesterday. He denies having any chest pain or palpitations. Patient was put on BiPAP overnight. Patient has been started on Solu-Medrol. Patient had an echocardiogram done showing ejection fraction of 60-65%, but it is a suboptimal study. Chest x-ray done this morning shows improvement any radiation. 11/06/2018 Patient remains in the ICU today however his been already evaluated by critical care team and he was transferred to the general medical floor as overflow. patient was lying comfortable in his incliner, no chest pain , with some dyspnea. He feels generally weak. He is hemodynamically stable and he is saturating 97% on 2 L nasal cannula. No more fever since yesterday of 100.7. His labs reviewed and his WBC is slightly improved to 1.5K, hemoglobin is 7.6. Platelet count 150 which is within normal limits. BMP was unremarkable with normal electrolytes of sodium and potassium and creatinine. Liver enzymes elevated. Chest x-ray from today: Emphysema and interstitial lung disease, possible pneumonia versus edema. 11/07/2018 Patient seen and evaluated today in the ICU. He was fully awake and oriented, sitting on the bed having his breakfast. Patient looks pale however he denies chest pain or dyspnea. No abdominal pain. No leg swelling. No fever. He is still febrile for more than 24 hours. Slightly tachycardic and tachypneic. His blood pressure 137/75 and saturating 96% on 2 L. Labs showed drop in hemoglobin 7.6 down to 6.7. He has history of anemia before with similar problem. One unit of blood transfusion is given after explaining the risks and benefits and to the patient to which she verbalized understanding and acceptance. Anemia workup is ordered. Midline is ordered for poor IV access. Creatinine 0.9 and liver enzymes elevated. Chest x-ray: Emphysema and interstitial lung disease 11/08/2018 Patient feels better today. His remains in the ICU for possible general medical floor overflow. No chest pain or dyspnea. He is tolerating diet well. Had regular bowel movements. Vitals are stable, he got one unit of blood transfusion yesterday and his hemoglobin is up today to 8.8. No overt GI bleed. Patient is able to urinate by himself, no Aparicio catheter. Unsure for the cause of blood in his hemoglobin. Occult blood in his stool is been negative. And workup showing possible anemia of chronic disease. Liver enzymes are not elevated. B12 level is 801. Folate within normal limits. Subcu heparin was held for severe anemia. Resume aspirin today. Monitor lytes and vitals. We'll check urine analysis. Sugar is controlled. Low magnesium and electrolytes were replaced. Objective - Vital Signs Vital signs: Vital Signs Temp 97.7 F 11/08/18 08:00 Pulse 89 11/08/18 11:41 Resp 16 11/08/18 11:41 BP 136/78 11/08/18 08:00 Pulse Ox 98 11/08/18 08:00 Intake & Output 11/07/18 11/08/18 11/08/18 18:59 06:59 18:59 Intake Total 1560 820 260 Output Total 1001 1000 580 Balance 559 180 -320 Intake: IV 100 100 160 0.9Normal Saline @ 20 ml/ 60 hour Doxycycline 100 mg In 100 100 100 Sodium Chloride 0.9% 100 ml @ 100 mls/hr IVPB Q12HR [facility] Rx#:[id number] Intake, IV Titration 100 Amount Magnesium Sulfate-D5w Pmx 100 1 gm In Dextrose/Water 1 100ml.bag @ 100 mls/hr IVPB Q1H [facility] Rx#: [id number] Oral 840 720 Blood Product 620 Rc As-1 Unit 310 [id number] Output: Urine 1000 1000 580 Stool 1 Other: Voiding Method Indwelling Catheter Indwelling Catheter Urinal # Bowel Movements 1 - Exam GEN. APPEARANCE: Thin, chronically ill-appearing HEENT - no pallor. No icterus. NECK EXAM: normal inspection. Absent: tenderness, meningismus, full ROM, lymphadenopathy RESPIRATORY EXAM: Coarse breath sounds bilaterally. Crackles at the lower lung bases bilaterally CARDIOVASCULAR EXAM: tachycardia GI/ABDOMINAL EXAM: soft, normal bowel sounds. Absent: distended, tenderness, guarding, rebound, rigid EXTREMITIES EXAM: No edema. NEUROLOGICAL EXAM: alert, oriented X3, no focal deficits. SKIN EXAM: warm, dry, intact, normal color. Absent: rash - Labs CBC & Chem 7: 11/08/18 05:07 11/08/18 05:07 Labs: Abnormal Lab Results - Last 24 Hours (Table) 11/07/18 11/07/18 11/07/18 Range/Units 04:31 07:21 17:05 WBC (3.8-10.6) k/uL RBC (4.30-5.90) m/uL Hgb (13.0-17.5) gm/dL Hct (39.0-53.0) % MCV (80.0-100.0) fL RDW (11.5-15.5) % Lymphocytes # (1.0-4.8) k/uL Lymphocytes # (Manual) (1.0-4.8) k/uL Nucleated RBCs (0-0) /100 WBC Macrocytosis BUN (9-20) mg/dL Glucose (74-99) mg/dL POC Glucose (mg/dL) 315 H (75-99) mg/dL Magnesium (1.6-2.3) mg/dL Iron 32 L (65-175) ug/dL TIBC 186 L (228-460) ug/dL Ferritin 775.7 H (22.0-322.0) ng/mL Crossmatch See Detail 11/07/18 11/07/18 11/08/18 Range/Units 20:30 21:44 05:07 WBC 2.7 L (3.8-10.6) k/uL RBC 2.67 L 2.72 L (4.30-5.90) m/uL Hgb 8.4 L D 8.8 L (13.0-17.5) gm/dL Hct 27.0 L 28.0 L (39.0-53.0) % MCV 101.0 H 103.0 H (80.0-100.0) fL RDW 25.1 H 25.1 H (11.5-15.5) % Lymphocytes # 0.5 L (1.0-4.8) k/uL Lymphocytes # (Manual) 0.76 L (1.0-4.8) k/uL Nucleated RBCs 2 H (0-0) /100 WBC Macrocytosis Marked A Marked A BUN (9-20) mg/dL Glucose (74-99) mg/dL POC Glucose (mg/dL) 177 H (75-99) mg/dL Magnesium (1.6-2.3) mg/dL Iron (65-175) ug/dL TIBC (228-460) ug/dL Ferritin (22.0-322.0) ng/mL Crossmatch 11/08/18 11/08/18 11/08/18 Range/Units 05:07 07:13 11:33 WBC (3.8-10.6) k/uL RBC (4.30-5.90) m/uL Hgb (13.0-17.5) gm/dL Hct (39.0-53.0) % MCV (80.0-100.0) fL RDW (11.5-15.5) % Lymphocytes # (1.0-4.8) k/uL Lymphocytes # (Manual) (1.0-4.8) k/uL Nucleated RBCs (0-0) /100 WBC Macrocytosis BUN 23 H (9-20) mg/dL Glucose 58 L (74-99) mg/dL POC Glucose (mg/dL) 102 H 104 H (75-99) mg/dL Magnesium 1.5 L (1.6-2.3) mg/dL Iron (65-175) ug/dL TIBC (228-460) ug/dL Ferritin (22.0-322.0) ng/mL Crossmatch Microbiology - Last 24 Hours (Table) 11/03/18 18:20 Blood Culture - Preliminary Blood No Growth after 96 hours Assessment and Plan Assessment: Acute hypoxic respiratory failure Severe anemia, needing blood transfusion Acute diastolic congestive heart failure Atrial fibrillation with rapid ventricular rate Recent C. diff infection, currently still on antibiotic Chronic atrial fibrillation- not a good candidate for and accommodation due to prior history of bleeding COPD Anemia of chronic disease History of sigmoid diverticulitis History of left upper lobe mass with a wedge dissection for squamous cell cancer Coronary artery disease with history of prior [place] GERD Hypertension Hyperlipidemia Chronic seizure disorder Plan: Patient is still requiring 8 L of oxygen. His antibiotics have been changed to doxycycline and and by mouth vancomycin for his recent C. diff. Patient does not have diarrhea currently. Transfuse for hemoglobin less than 7, and follow- up anemia workup. Midline placement. He is on BiPAP at night. Chest x-ray showed significant improvement since giving him IV Lasix. For now he will be continued on IV Lasix, Solu-Medrol, breathing treatments. Overall prognosis remains guarded. Further recommendations to follow depending on the progress of the patient.
--- NOTE | 2018-11-08 13:05 | P.PN ---
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 difficile colitis labs reviewed medications reviewed and is also on diuresis with IV Lasix likely will be moved out of the stepdown unit Objective - Vital Signs Vital signs: Vital Signs Temp 97.7 F 11/08/18 08:00 Pulse 89 11/08/18 11:41 Resp 16 11/08/18 11:41 BP 136/78 11/08/18 08:00 Pulse Ox 98 11/08/18 08:00 Intake & Output 11/07/18 11/08/18 11/08/18 18:59 06:59 18:59 Intake Total 1560 820 260 Output Total 1001 1000 580 Balance 559 -180 -320 Intake: IV 100 100 160 0.9Normal Saline @ 20 ml/ 60 hour Doxycycline 100 mg In 100 100 100 Sodium Chloride 0.9% 100 ml @ 100 mls/hr IVPB Q12HR [facility] Rx#:[id number] Intake, IV Titration 100 Amount Magnesium Sulfate-D5w Pmx 100 1 gm In Dextrose/Water 1 100ml.bag @ 100 mls/hr IVPB Q1H [facility] Rx#: [id number] Oral 840 720 Blood Product 620 Rc As-1 Unit 310 [id number] Output: Urine 1000 1000 580 Stool 1 Other: Voiding Method Indwelling Catheter Indwelling Catheter Urinal # Bowel Movements 1 - Exam Appearance the patient is calm and comfortable not in acute respiratory distress currently on oxygen at high flow at 2 L per minute nasal cannula. HEENT: Anicteric, conjunctiva are pink and moist, nasal or oral mucosa are without lesion. The neck is supple without lymphadenopathy or thyromegaly. No oral thrush is noted. Lungs: symmetrical air entry is noted, coarse crackles at the lung love decreased breath sounds to the bilateral bases Heart: irregular without murmur click or rub Abdomen: Positive bowel sounds, soft minimal tenderness in the lower quadrants, there is no palpable masses or organomegaly. Abdomen is without guarding or rebound. Extremities:Upper extremities reveal evidence of equal pulses, no lesions are seen, no petechiae or telangiectasia. The lower extremities have no significant edema, peripheral pulses were 2+ and symmetric, no lesions or ulcerations are seen. Capillary refill was brisk. Skin: Intact without significant rash or lesions. Neuro:the patient is arousable and follows simple commands answer simple questions is very fatigued Musculoskeletal: Patient is bedbound No acute joint effusions are noted. Lymph: No cervical, supraclavicular, axillary, epitrochlear, or inguinal lymphadenopathy was noted. - Labs CBC & Chem 7: 11/08/18 05:07 11/08/18 05:07 Labs: Abnormal Lab Results - Last 24 Hours (Table) 11/07/18 11/07/18 11/07/18 Range/Units 04:31 07:21 17:05 WBC (3.8-10.6) k/uL RBC (4.30-5.90) m/uL Hgb (13.0-17.5) gm/dL Hct (39.0-53.0) % MCV (80.0-100.0) fL RDW (11.5-15.5) % Lymphocytes # (1.0-4.8) k/uL Lymphocytes # (Manual) (1.0-4.8) k/uL Nucleated RBCs (0-0) /100 WBC Macrocytosis BUN (9-20) mg/dL Glucose (74-99) mg/dL POC Glucose (mg/dL) 315 H (75-99) mg/dL Magnesium (1.6-2.3) mg/dL Iron 32 L (65-175) ug/dL TIBC 186 L (228-460) ug/dL Ferritin 775.7 H (22.0-322.0) ng/mL Crossmatch See Detail 11/07/18 11/07/18 11/08/18 Range/Units 20:30 21:44 05:07 WBC 2.7 L (3.8-10.6) k/uL RBC 2.67 L 2.72 L (4.30-5.90) m/uL Hgb 8.4 L D 8.8 L (13.0-17.5) gm/dL Hct 27.0 L 28.0 L (39.0-53.0) % MCV 101.0 H 103.0 H (80.0-100.0) fL RDW 25.1 H 25.1 H (11.5-15.5) % Lymphocytes # 0.5 L (1.0-4.8) k/uL Lymphocytes # (Manual) 0.76 L (1.0-4.8) k/uL Nucleated RBCs 2 H (0-0) /100 WBC Macrocytosis Marked A Marked A BUN (9-20) mg/dL Glucose (74-99) mg/dL POC Glucose (mg/dL) 177 H (75-99) mg/dL Magnesium (1.6-2.3) mg/dL Iron (65-175) ug/dL TIBC (228-460) ug/dL Ferritin (22.0-322.0) ng/mL Crossmatch 11/08/18 11/08/18 11/08/18 Range/Units 05:07 07:13 11:33 WBC (3.8-10.6) k/uL RBC (4.30-5.90) m/uL Hgb (13.0-17.5) gm/dL Hct (39.0-53.0) % MCV (80.0-100.0) fL RDW (11.5-15.5) % Lymphocytes # (1.0-4.8) k/uL Lymphocytes # (Manual) (1.0-4.8) k/uL Nucleated RBCs (0-0) /100 WBC Macrocytosis BUN 23 H (9-20) mg/dL Glucose 58 L (74-99) mg/dL POC Glucose (mg/dL) 102 H 104 H (75-99) mg/dL Magnesium 1.5 L (1.6-2.3) mg/dL Iron (65-175) ug/dL TIBC (228-460) ug/dL Ferritin (22.0-322.0) ng/mL Crossmatch Microbiology - Last 24 Hours (Table) 11/03/18 18:20 Blood Culture - Preliminary Blood No Growth after 96 hours Assessment and Plan Assessment: 1 acute hypoxic respiratory failure, improved secondary to a component of CHF and COPD exacerbation. The patient is currently on 2 L of oxygen by nasal cannula, comfortable not using accessory muscles of breathing. 2 COPD advanced with bullous changes bilaterally 3 C. diff colitis currently on oral vancomycin. The patient was also started on doxycycline regarding COPD exacerbation, repeat C. diff is negative 4 CHF with diastolic failure and a preserved LV function 5 chronic atrial fibrillation, with a controlled rate 6 squamous cell carcinoma of the lung with a previous left upper lobe wedge resection 7 CVA/TIA 8 hypertension 9 hyperlipidemia 10 coronary artery disease with previous [place] 11 chronic anemia with a hemoglobin of 6.9 and the patient is awaiting a unit of packed RBC transfusion. 12 history of adenocarcinoma of the colon, post nephroscopic sigmoid colectomy 13 previous history of GI bleed 14 chronic back pain 15 impaired performance and functional status secondary to above-mentioned comorbidities Plan: Plan to continue current medications change Lasix to by mouth increase activity as tolerated if remains stable can be transferred out of the ICU Time with Patient: Greater than 30
[2018-11-08 13:34] LABS: Appearance,Urine Clear (Clear); Bilirubin,Urine Negative (Negative); Blood,Urine Negative (Negative); Color,Urine Light Yellow; Glucose,Urine (UA) Negative (Negative); Ketones,Urine Negative (Negative); Leukocyte Esterase,Urine Negative (Negative); Nitrite,Urine Negative (Negative); Protein,Urine Negative (Negative); Specific Gravity,Urine 1.008 (1.001-1.035); Urobilinogen,Urine <2.0 mg/dL (<2.0)
[2018-11-08 16:53] LABS: Glucose,Whole Blood 185 mg/dL (75-99)
[2018-11-08 20:55] LABS: Glucose,Whole Blood 143 mg/dL (75-99)
[2018-11-09] MEDS: LEVOTHYROXINE 50 MCG TAB PO SCH (05:19)
[2018-11-09] MEDS: VANCOMYCIN ORAL SOLUTION 250 MG/5 ML BOTTLE PO SCH ×4 (05:19→23:10)
[2018-11-09] MEDS: IPRATROPIUM-ALBUTEROL 3 ML NEB INHALATION SCH ×4 (07:37→20:58)
[2018-11-09 07:46] LABS: Glucose,Whole Blood 100 mg/dL (75-99)
[2018-11-09] MEDS: INSULIN ASPART (NovoLOG) 100 UNIT/ML VIAL SQ SCH ×4 (07:50→21:25)
[2018-11-09] MEDS: PARoxetine 10 MG TAB PO SCH (08:01)
[2018-11-09] MEDS: carBAMazepine 200 MG TAB PO SCH ×2 (08:01→21:24)
[2018-11-09] MEDS: FUROSEMIDE 10 MG/ML 4 ML VIAL IV SCH ×2 (08:01→21:25)
[2018-11-09] MEDS: TAMSULOSIN 0.4 MG CAP.ER.24H PO SCH (08:01)
[2018-11-09] MEDS: ASPIRIN 81 MG PO SCH (08:02)
[2018-11-09] MEDS: DIVALPROEX 500 MG TABLET.DR PO SCH ×2 (08:02→17:50)
[2018-11-09] MEDS: predniSONE 20 MG TAB PO SCH (08:02)
[2018-11-09] MEDS: METOPROLOL SUCCINATE (ER) 25 MG TAB.ER.24H PO SCH (08:02)
[2018-11-09] MEDS: FAMOTIDINE 20 MG TAB PO SCH ×2 (08:02→17:50)
[2018-11-09] MEDS: FERROUS SULFATE 325 MG TAB PO SCH (08:02)
[2018-11-09] MEDS: DOXYCYCLINE 100 MG in SODIUM CHLORIDE 0.9% 100 ML IVPB SCH ×2 (08:31→21:25)
[2018-11-09 12:09] LABS: Glucose,Whole Blood 106 mg/dL (75-99)
--- NOTE | 2018-11-09 12:28 | P.PN ---
Subjective Progress Note Date: 11/09/18 Objective - Vital Signs Vital signs: Vital Signs Temp 98 F 11/09/18 05:10 Pulse 88 11/09/18 11:55 Resp 20 11/09/18 08:00 BP 93/62 11/09/18 05:10 Pulse Ox 100 11/09/18 07:40 Intake & Output 11/08/18 11/09/18 11/09/18 18:59 06:59 18:59 Intake Total 290 500 Output Total 760 1 Balance -470 499 Intake: IV 190 0.9Normal Saline @ 20 ml/ 90 hour Doxycycline 100 mg In 100 Sodium Chloride 0.9% 100 ml @ 100 mls/hr IVPB Q12HR [facility] Rx#:[id number] Intake, IV Titration 100 Amount Magnesium Sulfate-D5w Pmx 100 1 gm In Dextrose/Water 1 100ml.bag @ 100 mls/hr IVPB Q1H [facility] Rx#: [id number] Oral 500 Output: Urine 760 Stool 1 Other: Voiding Method Urinal Urinal # Voids 3 - Labs CBC & Chem 7: 11/08/18 05:07 11/08/18 05:07 Labs: Abnormal Lab Results - Last 24 Hours (Table) 11/08/18 11/08/18 11/09/18 Range/Units 16:49 20:36 07:11 POC Glucose (mg/dL) 185 H 143 H 100 H (75-99) mg/dL 11/09/18 Range/Units 11:44 POC Glucose (mg/dL) 106 H (75-99) mg/dL Microbiology - Last 24 Hours (Table) 11/03/18 18:20 Blood Culture - Preliminary Blood No Growth after 120 hours
[2018-11-09 13:53] VITALS: BMI 22.6
[2018-11-09 17:17] LABS: Glucose,Whole Blood 128 mg/dL (75-99)
[2018-11-09 20:33] LABS: Glucose,Whole Blood 253 mg/dL (75-99)
[2018-11-09] MEDS: ACETAMINOPHEN TAB 325 MG TAB PO PRN (21:25)
[2018-11-10] MEDS: LEVOTHYROXINE 50 MCG TAB PO SCH (05:57)
[2018-11-10] MEDS: ACETAMINOPHEN TAB 325 MG TAB PO PRN (05:57)
[2018-11-10] MEDS: VANCOMYCIN ORAL SOLUTION 250 MG/5 ML BOTTLE PO SCH ×2 (05:58→12:02)
[2018-11-10] MEDS: IPRATROPIUM-ALBUTEROL 3 ML NEB INHALATION SCH ×3 (06:04→16:16)
[2018-11-10 07:12] LABS: Glucose,Whole Blood 129 mg/dL (75-99)
[2018-11-10 08:11] LABS: Anion Gap 8 mmol/L; Blood Urea Nitrogen 33 mg/dL (9-20); Calcium 8.7 mg/dL (8.4-10.2); Carbon Dioxide 28 mmol/L (22-30); Chloride 101 mmol/L (98-107); Glucose 109 mg/dL (74-99); Potassium 4.1 mmol/L (3.5-5.1); Sodium 137 mmol/L (137-145)
[2018-11-10 08:13] LABS: Anisocytosis Marked; Basophils % (A) 0 %; Eosinophils % (A) 1 %; HCT 28.8 % (39.0-53.0); HGB 8.7 gm/dL (13.0-17.5); Hypochromasia Marked; Lymphocytes # (A) 0.6 k/uL (1.0-4.8); Lymphocytes % (A) 21 %; MCH 31.3 pg (25.0-35.0); MCHC 30.2 g/dL (31.0-37.0); MCV 103.6 fL (80.0-100.0); Macrocytosis Marked; Mean Platelet Volume 9.6; Monocytes # (A) 0.2 k/uL (0-1.0); Monocytes % (A) 6 %; Neutrophils # (A) 1.9 k/uL (1.3-7.7); Neutrophils % (A) 69 %; Platelet Count 168 k/uL (150-450); Poikilocytosis Moderate; RBC 2.78 m/uL (4.30-5.90); RDW 24.5 % (11.5-15.5); WBC 2.8 k/uL (3.8-10.6)
[2018-11-10 08:25] LABS: Crenated RBC Present; RBC Fragments Present
[2018-11-10] MEDS: INSULIN ASPART (NovoLOG) 100 UNIT/ML VIAL SQ SCH ×3 (09:57→17:49)
--- NOTE | 2018-11-10 10:40 | P.PN ---
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, congestive heart failure due to diastolic failure, chronic atrial fibrillation, squamous cell carcinoma status post left upper lobe resection, CVA, hypertension hypertensive cardiovascular disease, dyslipidemia, coronary artery disease, chronic anemia, status post to sigmoid colectomy for adenocarcinoma of the colon, GI bleed, 11/10/2018, patient is doing well cuff congestion shortness of breath is improved he remains on supplemental oxygen his stools are more formed able to get up and ambulate he is likely discharged to extended care facility later on today 11/08/2018, patient is breathing more comfortably he is on 2 L oxygen, denies any chest pain, stools are well formed, patient is on chronic therapy for C. difficile colitis labs reviewed medications reviewed and is also on diuresis with IV Lasix likely will be moved out of the stepdown unit Objective - Vital Signs Vital signs: Vital Signs Temp 97.7 F 11/10/18 05:00 Pulse 80 11/10/18 06:19 Resp 16 11/10/18 05:00 BP 90/58 11/10/18 05:00 Pulse Ox 100 11/10/18 05:00 Intake & Output 11/09/18 11/10/18 11/10/18 18:59 06:59 18:59 Intake Total 320 Output Total 1325 Balance -1325 320 Weight 71.4 kg Intake: Oral 320 Output: Urine 1325 Other: Voiding Method Urinal Urinal # Voids 2 2 # Bowel Movements 1 - Exam Appearance the patient is calm and comfortable not in acute respiratory distress currently on oxygen at high flow at 2 L per minute nasal cannula. HEENT: Anicteric, conjunctiva are pink and moist, nasal or oral mucosa are without lesion. The neck is supple without lymphadenopathy or thyromegaly. No oral thrush is noted. Lungs: symmetrical air entry is noted, coarse crackles at the lung love decreased breath sounds to the bilateral bases Heart: irregular without murmur click or rub Abdomen: Positive bowel sounds, soft minimal tenderness in the lower quadrants, there is no palpable masses or organomegaly. Abdomen is without guarding or rebound. Extremities:Upper extremities reveal evidence of equal pulses, no lesions are seen, no petechiae or telangiectasia. The lower extremities have no significant edema, peripheral pulses were 2+ and symmetric, no lesions or ulcerations are seen. Capillary refill was brisk. Skin: Intact without significant rash or lesions. Neuro:the patient is arousable and follows simple commands answer simple questions is very fatigued Musculoskeletal: Patient is bedbound No acute joint effusions are noted. Lymph: No cervical, supraclavicular, axillary, epitrochlear, or inguinal lymphadenopathy was noted. - Labs CBC & Chem 7: 11/10/18 07:23 11/10/18 07:23 Labs: Abnormal Lab Results - Last 24 Hours (Table) 11/09/18 11/09/18 11/09/18 Range/Units 11:44 17:07 20:32 WBC (3.8-10.6) k/uL RBC (4.30-5.90) m/uL Hgb (13.0-17.5) gm/dL Hct (39.0-53.0) % MCV (80.0-100.0) fL MCHC (31.0-37.0) g/dL RDW (11.5-15.5) % Lymphocytes # (1.0-4.8) k/uL Macrocytosis BUN (9-20) mg/dL Glucose (74-99) mg/dL POC Glucose (mg/dL) 106 H 128 H 253 H (75-99) mg/dL 11/10/18 11/10/18 11/10/18 Range/Units 07:06 07:23 07:23 WBC 2.8 L (3.8-10.6) k/uL RBC 2.78 L (4.30-5.90) m/uL Hgb 8.7 L (13.0-17.5) gm/dL Hct 28.8 L (39.0-53.0) % MCV 103.6 H (80.0-100.0) fL MCHC 30.2 L (31.0-37.0) g/dL RDW 24.5 H (11.5-15.5) % Lymphocytes # 0.6 L (1.0-4.8) k/uL Macrocytosis Marked A BUN 33 H (9-20) mg/dL Glucose 109 H (74-99) mg/dL POC Glucose (mg/dL) 129 H (75-99) mg/dL Microbiology - Last 24 Hours (Table) 11/03/18 18:20 Blood Culture - Final Blood No Growth after 144 hours Assessment and Plan Assessment: 1 acute hypoxic respiratory failure, improved secondary to a component of CHF and COPD exacerbation. The patient is currently on 2 L of oxygen by nasal cannula, comfortable not using accessory muscles of breathing. 2 COPD advanced with bullous changes bilaterally 3 C. diff colitis currently on oral vancomycin. The patient was also started on doxycycline regarding COPD exacerbation, repeat C. diff is negative 4 CHF with diastolic failure and a preserved LV function 5 chronic atrial fibrillation, with a controlled rate 6 squamous cell carcinoma of the lung with a previous left upper lobe wedge re section 7 CVA/TIA 8 hypertension 9 hyperlipidemia 10 coronary artery disease with previous [place] 11 chronic anemia with a hemoglobin of 6.9 and the patient is awaiting a unit of packed RBC transfusion. 12 history of adenocarcinoma of the colon, post nephroscopic sigmoid colectomy 13 previous history of GI bleed 14 chronic back pain 15 impaired performance and functional status secondary to above-mentioned comorbidities Plan: Plan to continue current medications change Lasix to by mouth increase activity as tolerated if remains stable can be discharge from pulmonary standpoint Time with Patient: Greater than 30
[2018-11-10] MEDS: predniSONE 20 MG TAB PO SCH (10:53)
[2018-11-10] MEDS: ASPIRIN 81 MG PO SCH (10:53)
[2018-11-10] MEDS: PARoxetine 10 MG TAB PO SCH (10:53)
[2018-11-10] MEDS: TAMSULOSIN 0.4 MG CAP.ER.24H PO SCH (10:53)
[2018-11-10] MEDS: FERROUS SULFATE 325 MG TAB PO SCH (10:53)
[2018-11-10] MEDS: FAMOTIDINE 20 MG TAB PO SCH ×2 (10:53→17:53)
[2018-11-10] MEDS: METOPROLOL SUCCINATE (ER) 25 MG TAB.ER.24H PO SCH (10:53)
[2018-11-10] MEDS: carBAMazepine 200 MG TAB PO SCH (10:53)
[2018-11-10] MEDS: DIVALPROEX 500 MG TABLET.DR PO SCH ×2 (10:54→17:53)
[2018-11-10] MEDS: FUROSEMIDE 10 MG/ML 4 ML VIAL IV SCH (10:54)
[2018-11-10] MEDS: DOXYCYCLINE 100 MG in SODIUM CHLORIDE 0.9% 100 ML IVPB SCH (10:54)
[2018-11-10 12:46] LABS: Glucose,Whole Blood 122 mg/dL (75-99)
[2018-11-10 14:06] VITALS: BP 151/84; PULSE 106; RESP 20; TEMP 98.7
--- NOTE | 2018-11-10 14:29 | P.DS ---
Providers Date of admission: 11/03/18 17:40 Attending physician: Abiola Valentino Consults: 11/03/18 17:41 Consult Physician Routine Consulting Provider: Blas Cortez Consult Reason/Comments: sepsis Do you want consulting provider notified?: Yes 11/04/18 12:03 Consult Physician Urgent Consulting Provider: Mina Hartman Consult Reason/Comments: respiratory distress Do you want consulting provider notified?: Already Contacted 11/10/18 11:03 Consult Physician Routine Consulting Provider: Rico Nazario Consult Reason/Comments: pneumonia. already seeing patient. needs to be on his list. Do you want consulting provider notified?: Already Contacted Placement Type Exists?: Yes Primary care physician: [facility] Course: Diagnoses: Acute hypoxic respiratory failure Severe anemia, needing blood transfusion Acute diastolic congestive heart failure Atrial fibrillation with rapid ventricular rate Recent C. diff infection, currently still on antibiotic Chronic atrial fibrillation- not a good candidate for and accommodation due to prior history of bleeding COPD Anemia of chronic disease History of sigmoid diverticulitis History of left upper lobe mass with a wedge dissection for squamous cell cancer Coronary artery disease with history of prior PA GERD Hypertension Hyperlipidemia Chronic seizure disorder Hospital course: Mr. Davila is a 68-year-old male with a past medical history of GERD, hypertension, hyperlipidemia, coronary artery disease, seizure disorder, who is a resident of [facility] brought in by the EMS for weakness. Patient was recently admitted to the hospital earlier this month for hypoxemic respiratory failure and C. diff colitis. Patient was discharged on antibiotics. But for the past couple of days patient has generalized weakness and fatigue and he also had a fever then he was brought into the hospital. On presentation patient was respiratory distress and he was admitted to the intensive care unit. He was found to have acute respiratory failure secondary to heart failure and COPD exacerbation. Patient was treated with Lasix, breathing treatment, and oxygen as well as his steroids. Patient also was treated with antibiotic. A formal doxycycline and oral vancomycin for his C. diff. Gets stabilized and he was transferred to the general medical floor. Patient breathing came back to his baseline with no exertional dyspnea and no coughing no chest pain, he has firm bowel movement with no abdominal pain. He is tolerating diet well with no nausea vomiting. No other complaints. Patient felt generally weak from deconditioning as and he might benefit from inpatient physical rehab. However patient is going to be discharged to his ECF. Patient was cleared for discharge by the pulmonary and infectious disease team. Problems and management plan was discussed with the patient and he verbalized understanding and acceptance Patient was found stable and can be discharged to his ECF in guarded prognosis however he needs to follow up as an outpatient. Patient was instructed to follow-up with his primary care doctor in 1 week, with ECF physician in one to 2 days and with his coal gasification technician Dr. Nazario in 7-10 days and he agrees. Gen: patient is a AAOx3, no distress CVS: S1-S2, RRR, no murmur Lungs: B/L CTA, no wheezing Abdomen: soft, no distention, no tenderness, positive bowel sounds Extremity: no leg edema or induration Time spent more than 35 minutes Patient Condition at Discharge: Fair Plan - Discharge Summary New Discharge Prescriptions: No Action Divalproex [Depakote] 1,000 mg PO BID@0800,1700 Budesonide-Formot 160-4.5 Mcg [Symbicort 160-4.5 Mcg Inhaler] 2 puff INHALATION RT-BID Ipratropium-Albuterol Nebulize [Duoneb 0.5 mg-3 mg/3 ml Soln] 3 ml IH RT-QID neb Metoprolol Succinate (ER) [Toprol XL] 25 mg PO DAILY tab PARoxetine [Paxil] 10 mg PO DAILY tab Magnesium Hydroxide [Milk of Magnesia] 2,400 mg PO DAILY PRN PRN Reason: Constipation Calcium Carbonate [Tums] 500 mg PO Q8H PRN PRN Reason: UPSET STOMACH Bisacodyl [Dulcolax] 10 mg RECTAL DAILY PRN PRN Reason: Constipation Tamsulosin [Flomax] 0.4 mg PO QAM Aspirin 81 mg PO DAILY chew Nitroglycerin Sl Tabs [Nitrostat] 0.4 mg SUBLINGUAL Q5M PRN #20 tab PRN Reason: Chest Pain Acetaminophen [Tylenol] 650 mg PO Q6H PRN PRN Reason: Pain carBAMazepine [TEGretol] 200 mg PO BID Ferrous Sulfate [Feosol] 325 mg PO DAILY Folic Acid 1 mg PO DAILY@1700 Furosemide [Lasix] 40 mg PO DAILY Isosorbide Mononitrate ER [Imdur] 30 mg PO DAILY@0800 L.acidoph,Paracasei, B.lactis [Probiotic] 1 cap PO DAILY Levothyroxine Sodium [Synthroid] 50 mcg PO DAILY@0600 Magnesium Oxide 400 mg PO DAILY Montelukast [Singulair] 10 mg PO DAILY Na Phos,M-B/Na Phos,Di-Ba [Fleet Adult] 133 ml RECTAL DAILY PRN PRN Reason: Constipation Potassium Chloride ER [K-Dur 20] 20 meq PO DAILY Ranitidine HCl 150 mg PO BID@0800,1700 Vancomycin Oral Solution 250 mg PO Q6HR #5 day Gabapentin [Neurontin] 100 mg PO DAILY PRN #7 capsule PRN Reason: Spasms Levothyroxine Sodium [Synthroid] 50 mcg PO DAILY predniSONE See Taper Discharge Medication List Budesonide-Formot 160-4.5 Mcg [Symbicort 160-4.5 Mcg Inhaler] 2 puff INHALATION RT-BID 05/22/14 [History] Divalproex [Depakote] 1,000 mg PO BID@0800,1700 05/22/14 [History] Ipratropium-Albuterol Nebulize [Duoneb 0.5 mg-3 mg/3 ml Soln] 3 ml IH RT-QID neb 03/22/17 [Rx] Metoprolol Succinate (ER) [Toprol XL] 25 mg PO DAILY tab 03/22/17 [Rx] PARoxetine [Paxil] 10 mg PO DAILY tab 03/22/17 [Rx] Bisacodyl [Dulcolax] 10 mg RECTAL DAILY PRN 04/03/17 [History] Calcium Carbonate [Tums] 500 mg PO Q8H PRN 04/03/17 [History] Magnesium Hydroxide [Milk of Magnesia] 2,400 mg PO DAILY PRN 04/03/17 [History] Tamsulosin [Flomax] 0.4 mg PO QAM 04/03/17 [History] Aspirin 81 mg PO DAILY chew 04/05/17 [Rx] Nitroglycerin Sl Tabs [Nitrostat] 0.4 mg SUBLINGUAL Q5M PRN #20 tab 04/05/17 [Rx] Acetaminophen [Tylenol] 650 mg PO Q6H PRN 10/20/18 [History] Ferrous Sulfate [Feosol] 325 mg PO DAILY 10/20/18 [History] Folic Acid 1 mg PO DAILY@1700 10/20/18 [History] Furosemide [Lasix] 40 mg PO DAILY 10/20/18 [History] Isosorbide Mononitrate ER [Imdur] 30 mg PO DAILY@0800 10/20/18 [History] L.acidoph,Paracasei, B.lactis [Probiotic] 1 cap PO DAILY 10/20/18 [History] Levothyroxine Sodium [Synthroid] 50 mcg PO DAILY@0600 10/20/18 [History] Magnesium Oxide 400 mg PO DAILY 10/20/18 [History] Montelukast [Singulair] 10 mg PO DAILY 10/20/18 [History] Na Phos,M-B/Na Phos,Di-Ba [Fleet Adult] 133 ml RECTAL DAILY PRN 10/20/18 [History] Potassium Chloride ER [K-Dur 20] 20 meq PO DAILY 10/20/18 [History] Ranitidine HCl 150 mg PO BID@0800,1700 10/20/18 [History] carBAMazepine [TEGretol] 200 mg PO BID 10/20/18 [History] Gabapentin [Neurontin] 100 mg PO DAILY PRN #7 capsule 10/30/18 [Rx] Vancomycin Oral Solution 250 mg PO Q6HR #5 day 10/30/18 [Rx] Levothyroxine Sodium [Synthroid] 50 mcg PO DAILY 11/03/18 [History] predniSONE See Taper 11/03/18 [History] Follow up Appointment(s)/Referral(s): Sue Arellano MD [Primary Care Provider] - 1-2 days
[2018-11-10] MEDS ORDERED: CHERRY FLAVOR 60 ML BOTTLE PO SCH (18:00)
== END 2018-11-10 17:58 | DRG 291 ==
LOC: EC 15:42 → 3SCARD 17:40 → 2SICU 11-04 11:35 → 4MS4W 11-08 17:08
PROVIDERS: ADMIT Internal Medicine; ATTEND Internal Medicine
PROC: 5A09357 Assistance with Respiratory Ventilation, Less than 24 Consecutive Hours, Continuous Positive Airway Pressure (ICD-10-PCS; principal; 2018-11-08)
DX: I13.0 Hypertensive heart and chronic kidney disease with heart failure and stage 1 through stage 4 chronic kidney disease, or unspecified chronic kidney disease (principal); J96.01 Acute respiratory failure with hypoxia; I50.33 Acute on chronic diastolic (congestive) heart failure; E87.2 Acidosis; J84.9 Interstitial pulmonary disease, unspecified; K21.9 Gastro-esophageal reflux disease without esophagitis; E78.5 Hyperlipidemia, unspecified; I48.2 Chronic atrial fibrillation; I25.10 Atherosclerotic heart disease of native coronary artery without angina pectoris; D63.8 Anemia in other chronic diseases classified elsewhere; G89.29 Other chronic pain; I45.81 Long QT syndrome; K59.00 Constipation, unspecified; N18.9 Chronic kidney disease, unspecified; I35.8 Other nonrheumatic aortic valve disorders; J43.9 Emphysema, unspecified; G40.909 Epilepsy, unspecified, not intractable, without status epilepticus; Z86.19 Personal history of other infectious and parasitic diseases; Z85.118 Personal history of other malignant neoplasm of bronchus and lung; I25.2 Old myocardial infarction; Z87.01 Personal history of pneumonia (recurrent); Z90.49 Acquired absence of other specified parts of digestive tract; Z85.038 Personal history of other malignant neoplasm of large intestine; Z79.4 Long term (current) use of insulin; Z79.51 Long term (current) use of inhaled steroids; Z79.82 Long term (current) use of aspirin; Z79.890 Hormone replacement therapy; Z79.899 Other long term (current) drug therapy; Z86.73 Personal history of transient ischemic attack (TIA), and cerebral infarction without residual deficits; Z87.11 Personal history of peptic ulcer disease; Z87.442 Personal history of urinary calculi; Z87.891 Personal history of nicotine dependence; Z90.2 Acquired absence of lung [part of]; Z99.81 Dependence on supplemental oxygen; Z82.3 Family history of stroke; Z87.19 Personal history of other diseases of the digestive system
CPT/HCPCS: 36410; 36415; 36600; 71045; 71046; 76937; 80048; 80053; 81001; 81003; 82272; 82607; 82728; 82746; 82805; 83540; 83550; 83605; 83735; 83880; 84100; 84145; 84443; 84484; 85025; 85027; 85610; 85730; 86850; 86900; 86901; 86920; 87040; 87324; 93005; 93306; 94640; 94660; 94760; 96360; 99285

== ENCOUNTER → 2019-01-30 | Outpatient (CLI) | payer MEDICARE, OTHER ==
--- NOTE | 2019-01-30 13:17 | CT ---
EXAMINATION TYPE: CT ChestAbdPelvis w con DATE OF EXAM: 01/30/2019 COMPARISON: 10/20/2018 and 10/24/2018 HISTORY: Lung Cancer, Colon Cancer CT DLP: 633.90 mGycm Automated exposure control for dose reduction was used. CONTRAST: CT scan of the chest, abdomen and pelvis is performed with Oral Contrast and with IV Contrast, patien t injected with 100 ml mL of Isovue 300. FINDINGS: LUNGS: Redemonstration of diffuse bullous emphysema, greater in the left. There is redemonstration of postsurgical changes of left lobectomy with soft tissue density seen along the posterior medial and left suprahilar regions. The area superiorly measures approximately 2.6 cm and the area inferiorly me asures approximately 3.6 cm. In overall size and appearance of this area is similar when compared to prior exam. Scattered interstitial changes are seen throughout the periphery of the bilateral lungs. No new nodules, masses or infiltrates are identified. MEDIASTINUM: Redemonstration of right paratracheal lymph node, similar in size. No axillary lymphaden opathy. No pericardial effusion. OTHER: No acute compression deformity. Multilevel thoracic spondylosis. LIVER/GB: Stable 0.9 cm cyst in the right hepatic dome. Otherwise, no evidence of intrahepatic lesion . Gallbladder surgically absent. PANCREAS: Redemonstration of 1.7 cm cystic lesion in the uncinate process of the pancreas, similar to prior. SPLEEN: No significant abnormality is seen. ADRENALS: No significant abnormality is seen. KIDNEYS: Atrophy of the left kidney. Multicystic changes of the bilateral kidneys without evidence of solid renal mass. Increasing atrophy is seen in the superior pole of the left kidney with slightly d ecreased perfusion. BOWEL: Oral contrast is seen to the level of the descending colon. No bowel obstruction. No ascites. No free intraperitoneal air. REPRODUCTIVE ORGANS: No gross abnormality seen. LYMPH NODES: No greater than 1 cm abdominal or pelvic lymph nodes are appreciated. OSSEOUS STRUCTURES: Redemonstration of a few sclerotic lesions and lytic lesions seen at the inferior endplate of L2 and superior endplate of L4. Multilevel degenerative changes of the lumbar spine. IMPRESSION: Postsurgical changes of the left upper lobe lobectomy with scarring and medial left upper lobe of lesion appearing smaller when compared to 10/24/2018. Interval worsening of left kidney atrophy with hypoperfusion the upper pole, which may be on the basi s of worsening medical renal disease. Multicystic changes of the bilateral kidneys. Stable uncinate process pancreatic lesion.
== END | disposition home or self-care (01) ==
LOC: RADCTMAIN 08:42
PROVIDERS: ATTEND Internal Medicine Hematology & Oncology
DX: J98.4 Other disorders of lung (principal); N26.1 Atrophy of kidney (terminal); N28.1 Cyst of kidney, acquired; K86.89 Other specified diseases of pancreas; C34.12 Malignant neoplasm of upper lobe, left bronchus or lung; C18.9 Malignant neoplasm of colon, unspecified; Z90.2 Acquired absence of lung [part of]
CPT/HCPCS: 82565; 84520; 71260; 74177; 36415; Q9967

== ENCOUNTER 2019-10-31 14:07 | Inpatient (IN) | payer MEDICARE, OTHER ==
--- NOTE | 2019-10-31 14:39 | ED ---
Dizziness HPI - General Chief Complaint: Dizziness Stated Complaint: recheck Time Seen by Provider: 10/31/19 14:25 Source: patient Mode of arrival: ambulatory Limitations: no limitations - History of Present Illness Initial Comments: The patient is a 69-year-old male with past history of A. fib, COPD, CHF who presents to the emergency room with reported hypotension from [facility]. The patient states that he began having presyncopal sensations with standing which began earlier this week. Evaluation of the patient's records demonstrates that he has had episodes of orthostatic hypotension the past, recorded as far back as August. The patient reports becoming more symptomatic state he can ambulate without the sensation of passing out. Dr. Collins has been caring for the patient. It appears that he adjusted multiple of his medications include dec reasing his metoprolol and d/cing Zaroxolyn entirely. The patient has been symptomatic. He denies any chest pain or shortness of breath. No abdominal pain. Denies visual changes or headaches. No fevers or chills. - Related Data Home Medications Medication Instructions Recorded Confirmed Budesonide-Formot 160-4.5 Mcg 2 puff INHALATION RT-BID@0800,1700 05/22/14 10/31/19 [Symbicort 160-4.5 Mcg Inhaler] Bisacodyl [Dulcolax] 10 mg RECTAL DAILY PRN 04/03/17 10/31/19 Calcium Carbonate [Tums] 500 mg PO Q8H PRN 04/03/17 10/31/19 Acetaminophen [Tylenol] 650 mg PO Q6H PRN 10/20/18 10/31/19 Ferrous Sulfate [Feosol] 325 mg PO DAILY@169910/20/18 10/31/19 Folic Acid 1 mg PO DAILY@169910/20/18 10/31/19 Magnesium Oxide 400 mg PO DAILY@169910/20/18 10/31/19 Montelukast [Singulair] 10 mg PO DAILY@0810/20/18 10/31/19 Na Phos,M-B/Na Phos,Di-Ba [Fleet 133 ml RECTAL DAILY PRN 10/20/18 10/31/19 Adult] Potassium Chloride ER [K-Dur 20] 30 meq PO DAILY@0800 10/20/18 10/31/19 Atorvastatin [Lipitor] 40 mg PO HS@2100 10/31/19 10/31/19 Diltiazem Oral [Cardizem Oral] 30 mg PO TID@0600,1400,219910/31/19 10/31/19 Divalproex [Depakote] 250 mg PO TID@0600,1400,219910/31/19 10/31/19 Furosemide [Lasix] 40 mg PO BID@0800,169910/31/19 10/31/19 Glucerna Shake 237 ml PO TID@0800,1200,169910/31/19 10/31/19 Insulin Lispro [humaLOG] See Protocol SQ ACHS 10/31/19 10/31/19 Ipratropium-Albuterol Nebulize 3 ml INHALATION RT-QID PRN 10/31/19 10/31/19 [Duoneb 0.5 mg-3 mg/3 ml Soln] Kenalog-40 Suspension 1 ml INTRAARTIC ONCE PRN 10/31/19 10/31/19 Levothyroxine Sodium [Synthroid] 88 mcg PO DAILY@59910/31/19 10/31/19 Lidocaine 2% Soultion 2 ml INTRAARTIC ONCE PRN 10/31/19 10/31/19 Magnesium Hydroxide [Milk of 7,200 mg PO Q48H PRN 10/31/19 10/31/19 Magnesia Concentrate] Metoprolol Succinate [Kapspargo 25 mg PO DAILY@0800 10/31/19 10/31/19 Sprinkle] Midodrine [ProAmatine] 5 mg PO TID@0700,1200,169910/31/19 10/31/19 Omeprazole [PriLOSEC] 40 mg PO DAILY@0610/31/19 10/31/19 PARoxetine [Paxil] 10 mg PO DAILY@0810/31/19 10/31/19 Saccharomyces Boulardii 250mg 1 cap PO BID@0800,169910/31/19 10/31/19 Capsule Sodium Chloride [[place]] 1 spray EA NOSTRIL Q1H PRN 10/31/19 10/31/19 rOPINIRole HCL [Requip] 0.5 mg PO TID@0600,1400,209910/31/19 10/31/19 traMADol HCL 50 mg PO Q6H PRN 10/31/19 10/31/19 Previous Rx's Medication Instructions Recorded Nitroglycerin Sl Tabs [Nitrostat] 0.4 mg SUBLINGUAL Q5M PRN #20 tab 04/05/17 Allergies Allergy/AdvReac Type Severity Reaction Status Date / Time phenobarbital Allergy Unknown Hallucinati Verified 10/31/19 17:07 ons Influenza Virus Vaccines Allergy Unknown Verified 10/31/19 17:07 Review of Systems ROS Statement: Those systems with pertinent positive or pertinent negative responses have been documented in the HPI. ROS Other: All systems not noted in ROS Statement are negative. Past Medical History Past Medical History: Atrial Fibrillation, Cancer, Chest Pain / Angina, COPD, CVA/TIA, GERD/Reflux, GI Bleed, Hyperlipidemia, Hypertension, Myocardial Infarction ([place]), Musculoskeletal Disorder, Renal Disease, Seizure Disorder Additional Past Medical History / Comment(s): colonoscopy then laparoscopic sigmoid colectomy for adenocarcinoma was performed on 07/19/14. Other HX: colon cancer found during colonoscopy-polyp which was adenocarcinoma, SQUAMOUS CELL CARCINOMA LT UPPER LOBE. ULCER; EPILEPTIC - STATES LAST SEIZURE PREV TO 1994; CVA - AFFECTS SPEECH/able to print but not write in cursive. UNABLE TO COMPLETELY CLOSE LEFT HAND R/T hx of LARGE LACERATION. HX OF RT HIP DISORDER, WORE CAST, THEN BRACE FOR 2 YRS, chronic low back pain, renal cysts and kidney stones, GI bleed associated with anticoaulation. Has home O2 which he uses when necessary Last Myocardial Infarction Date:: patient reports 19 years ago History of Any Multi-Drug Resistant Organisms: None Reported, C-DIFF Date of last positivie culture/infection: 10/23/18 MDRO Source:: stool Past Surgical History: Orthopedic Surgery Additional Past Surgical History / Comment(s): 07/19/14 Laparoscopic sigmoid colectomy. LEFT HAND SX, EXC VILMA CATARACTS; COLONOSCOPY 05/26/14.BRONCH/BX- PNUEMOTHORAX/CHEST TUBE /WEDGE RESECTION TUMOR LT UPPER LOBE. Past Anesthesia/Blood Transfusion Reactions: No Reported Reaction Past Psychological History: No Psychological Hx Reported Smoking Status: Former smoker Past Alcohol Use History: None Reported Past Drug Use History: None Reported - Past Family History Father Family Medical History: CVA/TIA Mother Family Medical History: Cancer General Exam Limitations: no limitations General appearance: alert, in no apparent distress Head exam: Present: atraumatic, normocephalic, normal inspection Eye exam: Present: normal appearance, PERRL, EOMI. Absent: scleral icterus, conjunctival injection, periorbital swelling ENT exam: Present: normal exam, mucous membranes moist Neck exam: Present: normal inspection. Absent: tenderness, meningismus, lymphadenopathy Respiratory exam: Present: normal lung sounds bilaterally. Absent: respiratory distress, wheezes, rales, rhonchi, stridor Cardiovascular Exam: Present: regular rate, irregular rhythm, normal heart sounds. Absent: systolic murmur, diastolic murmur, rubs, gallop, clicks GI/Abdominal exam: Present: soft, normal bowel sounds. Absent: distended, tenderness, guarding, rebound, rigid Extremities exam: Present: normal inspection, full ROM, normal capillary refill. Absent: tenderness, pedal edema, joint swelling, calf tenderness Back exam: Present: normal inspection Neurological exam: Present: alert, oriented X3, CN II-XII intact Psychiatric exam: Present: normal affect, normal mood Skin exam: Present: warm, dry, intact, normal color. Absent: rash Course Vital Signs 10/31/19 10/31/19 10/31/19 14:24 14:27 14:30 Temperature 97.8 F Pulse Rate 91 91 Pulse Rate [ 92 Orthotist Or Prosthetist ] Respiratory 18 16 Rate Blood Pressure 104/68 127/83 Blood Pressure [Sitting] Blood Pressure [Standing] Blood Pressure 130/68 [Supine] O2 Sat by Pulse 100 100 Oximetry 10/31/19 10/31/19 10/31/19 14:32 14:34 15:15 Temperature Pulse Rate 87 Pulse Rate [ 101 H 140 H Orthotist Or Prosthetist ] Respiratory 18 Rate Blood Pressure 138/80 Blood Pressure 140/73 [Sitting] Blood Pressure 88/48 [Standing] Blood Pressure [Supine] O2 Sat by Pulse 100 Oximetry 10/31/19 10/31/19 17:50 19:00 Temperature Pulse Rate 101 H 89 Pulse Rate [ Orthotist Or Prosthetist ] Respiratory 16 16 Rate Blood Pressure 134/67 132/71 Blood Pressure [Sitting] Blood Pressure [Standing] Blood Pressure [Supine] O2 Sat by Pulse 100 99 Oximetry EKG Findings - EKG Comments: EKG Findings:: EKG demonstrates A. fib with a rate of 90. QRS 84. QTC of 501. No acute ST segment elevations or depressions. Baseline artifact in V1 through V3 Medical Decision Making - Medical Decision Making Upon arrival the patient is placed into room 8. A thorough history and physical exam was performed. Orthostatics are obtained and are markedly positive. I did conduct laboratory studies which demonstrates the patient's potassium to be 3. Creatinine is at its baseline of 1.6. Chest x-ray was performed which demonstrates chronic emphysematous and parenchymal fibrotic changes with new left greater than right bilateral acute infiltrates in the upper lungs. The patient denies any symptoms of cough or congestion. He is swabbed for Covid. I discussed diagnosis, differential treatment options. I did recommend admission for cardiac consultation patient did agree. Jeff is discussed with Dr. Irwin agreed to admission. - Lab Data Result diagrams: 11/01/19 05:39 11/01/19 05:39 Lab Results 10/31/19 10/31/19 10/31/19 Range/Units 14:30 14:30 14:30 WBC 10.6 (3.8-10.6) k/uL RBC 2.78 L (4.30-5.90) m/uL Hgb 9.2 L (13.0-17.5) gm/dL Hct 27.9 L (39.0-53.0) % MCV 100.4 H (80.0-100.0) fL MCH 33.1 (25.0-35.0) pg MCHC 33.0 (31.0-37.0) g/dL RDW 21.4 H (11.5-15.5) % Plt Count 320 (150-450) k/uL Neutrophils % 76 % Lymphocytes % 10 % Monocytes % 10 % Eosinophils % 1 % Basophils % 0 % Neutrophils # 8.0 H (1.3-7.7) k/uL Lymphocytes # 1.1 (1.0-4.8) k/uL Monocytes # 1.0 (0-1.0) k/uL Eosinophils # 0.1 (0-0.7) k/uL Basophils # 0.0 (0-0.2) k/uL Hypochromasia Slight Poikilocytosis Slight Anisocytosis Moderate Macrocytosis Moderate PT 11.0 (9.0-12.0) sec INR 1.1 (<1.2) APTT 94.6 H (22.0-30.0) sec Sodium 137 (137-145) mmol/L Potassium 3.0 L (3.5-5.1) mmol/L Chloride 93 L (98-107) mmol/L Carbon Dioxide 29 (22-30) mmol/L Anion Gap 15 mmol/L BUN 79 H (9-20) mg/dL Creatinine 1.68 H (0.66-1.25) mg/dL Est GFR (CKD-EPI)AfAm 47 (>60 ml/min/1.73 sqM) Est GFR (CKD-EPI)NonAf 40 (>60 ml/min/1.73 sqM) Glucose 126 H (74-99) mg/dL Calcium 8.8 (8.4-10.2) mg/dL Total Bilirubin 0.7 (0.2-1.3) mg/dL AST 23 (17-59) U/L ALT 13 (4-49) U/L Alkaline Phosphatase 74 (38-126) U/L Troponin I (0.000-0.034) ng/mL Total Protein 6.6 (6.3-8.2) g/dL Albumin 3.8 (3.5-5.0) g/dL TSH 1.470 (0.465-4.680) mIU/L Cortisol 13 ug/dL 10/31/19 Range/Units 14:30 WBC (3.8-10.6) k/uL RBC (4.30-5.90) m/uL Hgb (13.0-17.5) gm/dL Hct (39.0-53.0) % MCV (80.0-100.0) fL MCH (25.0-35.0) pg MCHC (31.0-37.0) g/dL RDW (11.5-15.5) % Plt Count (150-450) k/uL Neutrophils % % Lymphocytes % % Monocytes % % Eosinophils % % Basophils % % Neutrophils # (1.3-7.7) k/uL Lymphocytes # (1.0-4.8) k/uL Monocytes # (0-1.0) k/uL Eosinophils # (0-0.7) k/uL Basophils # (0-0.2) k/uL Hypochromasia Poikilocytosis Anisocytosis Macrocytosis PT (9.0-12.0) sec INR (<1.2) APTT (22.0-30.0) sec Sodium (137-145) mmol/L Potassium (3.5-5.1) mmol/L Chloride (98-107) mmol/L Carbon Dioxide (22-30) mmol/L Anion Gap mmol/L BUN (9-20) mg/dL Creatinine (0.66-1.25) mg/dL Est GFR (CKD-EPI)AfAm (>60 ml/min/1.73 sqM) Est GFR (CKD-EPI)NonAf (>60 ml/min/1.73 sqM) Glucose (74-99) mg/dL Calcium (8.4-10.2) mg/dL Total Bilirubin (0.2-1.3) mg/dL AST (17-59) U/L ALT (4-49) U/L Alkaline Phosphatase (38-126) U/L Troponin I 0.015 (0.000-0.034) ng/mL Total Protein (6.3-8.2) g/dL Albumin (3.5-5.0) g/dL TSH (0.465-4.680) mIU/L Cortisol ug/dL Disposition Clinical Impression: Orthostatic hypotension, Hypokalemia Disposition: ADMITTED IP TO THIS HOSP Is patient prescribed a controlled substance at d/c from ED?: No Decision to Admit Reason: Admit from EC Decision Date: 10/31/19 Decision Time: 15:18
[2019-10-31 14:50] LABS: Anisocytosis Moderate; Basophils % (A) 0 %; Eosinophils # (A) 0.1 k/uL (0-0.7); Eosinophils % (A) 1 %; HCT 27.9 % (39.0-53.0); HGB 9.2 gm/dL (13.0-17.5); Hypochromasia Slight; Lymphocytes # (A) 1.1 k/uL (1.0-4.8); Lymphocytes % (A) 10 %; MCH 33.1 pg (25.0-35.0); MCV 100.4 fL (80.0-100.0); Macrocytosis Moderate; Mean Platelet Volume 10.3; Monocytes % (A) 10 %; Neutrophils % (A) 76 %; Platelet Count 320 k/uL (150-450); Poikilocytosis Slight; RBC 2.78 m/uL (4.30-5.90); RDW 21.4 % (11.5-15.5); WBC 10.6 k/uL (3.8-10.6)
[2019-10-31 14:55] LABS: Albumin 3.8 g/dL (3.5-5.0); Calcium 8.8 mg/dL (8.4-10.2); Total Bilirubin 0.7 mg/dL (0.2-1.3); Total Protein 6.6 g/dL (6.3-8.2)
[2019-10-31 15:00] LABS: INR 1.1 (<1.2)
[2019-10-31 15:05] LABS: Partial Thromboplastin Time 94.6 sec (22.0-30.0)
--- NOTE | 2019-10-31 15:08 | XR ---
EXAMINATION TYPE: XR chest 2V DATE OF EXAM: 10/31/2019 COMPARISON: Chest x-ray November 07, 2018. HISTORY: History of lung and colon cancer with cough and pain and weakness. TECHNIQUE: Frontal and lateral views of the chest are obtained. FINDINGS: There is background chronic emphysematous and parenchymal fibrotic changes with increasing upper lung opacities greater on the left. The cardiac silhouette size remains within normal limits. The osseous structures are intact. IMPRESSION: Chronic emphysematous and parenchymal fibrotic changes with new left greater than right bilateral acute infiltrates in the upper lungs.
[2019-10-31] MEDS ORDERED: POTASSIUM CHLORIDE ER 20 MEQ TAB.ER PO STA (15:16)
[2019-10-31] MEDS ORDERED: NALOXONE 0.4 MG/ML 1 ML VIAL IV PRN (15:18)
[2019-10-31 19:20] LABS: Glucose,Whole Blood 142 mg/dL (75-99)
[2019-10-31 19:57] LABS: ALT 14 U/L (4-49); AST 25 U/L (17-59)
[2019-10-31 19:59] LABS: INR 1.1 (<1.2); Prothrombin Time 11.3 sec (9.0-12.0)
[2019-10-31] MEDS ORDERED: IPRATROPIUM-ALBUTEROL 3 ML NEB INHALATION PRN (22:39)
[2019-10-31] MEDS ORDERED: BISACODYL 10 MG SUPP RECTAL PRN (22:39)
[2019-10-31] MEDS ORDERED: MAGNESIUM HYDROXIDE 2,400 MG/10 ML CUP PO PRN (22:39)
[2019-10-31] MEDS ORDERED: SODIUM CHLORIDE 0.9% 1,000 ML IV SCH (23:00)
--- NOTE | 2019-10-31 23:03 | P.HPIM ---
History of Present Illness H&P Date: 10/31/19 Chief Complaint: passing out Patient is a 69-year-old male with a known history of chronic CHF with diastolic dysfunction, chronic atrial fibrillation not on any anticoagulation due to history of GI bleed, Orthostatic hypotension currently on midodrine 5 mg 3 times daily, chronic hypoxic respiratory failure on 3 L oxygen, chronic interstitial lung changes and history of lung cancer and CKD stage III with baseline creatinine around 1.5 and other multiple medical problems was sent to hospital from [facility] due to hypotension and feeling of passed out. Patient has been having on and off symptoms for the past 1 week. Denied any loss of consciousness. Patient had multiple blood pressure medications including Lasix 40 mg daily along with Zaroxolyn. Even after adjusting blood pressure medications patient still having nears syncopal episodes. Patient was sent to hospital for evaluation. Patient has been becoming more symptomatic and could not ambulate without symptoms of passing out. Otherwise patient denied any complaints of shortness of breath. No chest pain. No leg swelling. No fever no chills. No nausea vomiting or abdominal pain or diarrhea. Laboratory data showed WBC 10.6, hemoglobin 9.2, MCV 100.4 and platelets 320 Sodium 137, potassium 3.0, BUN 79 and creatinine 1.68 Troponin 0 0.015 BNP 5760 TSH 1.47 and cortisol 13 both within normal limits Liver enzymes are not elevated. Chest x-ray showed chronic emphysematous and parenchymal fibrotic changes with the new left greater than right bilateral acute infiltrates in the upper lungs. EKG showed atrial fibrillation with ventricular rate 90 Patient is tachycardic. Afebrile.. Patient is orthostatic positive. Repeat COVID-19 was ordered. Patient had negative COVID-19 test last month. Review of Systems Constitutional: Patient denies any fever or chills . No generalized weakness or weight loss. Abdomen: Patient denied nausea vomiting and diarrhea and abdominal pain. Cardiovascular: Patient denies any chest pain or short of breath no palpitations. Respiratory: patient denied any cough is from production. No shortness of breath Neurologic: Patient denied any numbness or tingling. Patient does have dizziness and near syncope.. Musculoskeletal: Patient denies any complaints of joint swelling or deformity. Skin: Negative Psychiatric: Negative Endocrine: No heat or cold intolerance. No recent weight gain. Genitourinary: No dysuria or hematuria. All other 14 point ROS negative except the above Past Medical History Past Medical History: Atrial Fibrillation, Cancer, Chest Pain / Angina, COPD, CVA/TIA, GERD/Reflux, GI Bleed, Hyperlipidemia, Hypertension, Myocardial Infarction ([place]), Musculoskeletal Disorder, Renal Disease, Seizure Disorder Additional Past Medical History / Comment(s): colonoscopy then laparoscopic sigmoid colectomy for adenocarcinoma was performed on 07/19/14. Other HX: colon cancer found during colonoscopy-polyp which was adenocarcinoma, SQUAMOUS CELL CARCINOMA LT UPPER LOBE. ULCER; EPILEPTIC - STATES LAST SEIZURE PREV TO 1994; CVA - AFFECTS SPEECH/able to print but not write in cursive. UNABLE TO COMPLETELY CLOSE LEFT HAND R/T hx of LARGE LACERATION. HX OF RT HIP DISORDER, WORE CAST, THEN BRACE FOR 2 YRS, chronic low back pain, renal cysts and kidney stones, GI bleed associated with anticoaulation. Has home O2 which he uses when necessary Last Myocardial Infarction Date:: patient reports 19 years ago History of Any Multi-Drug Resistant Organisms: None Reported, C-DIFF Date of last positivie culture/infection: 10/23/18 MDRO Source:: stool Past Surgical History: Orthopedic Surgery Additional Past Surgical History / Comment(s): 07/19/14 Laparoscopic sigmoid colectomy. LEFT HAND SX, EXC VILMA CATARACTS; COLONOSCOPY 05/26/14.BRONCH/BX- PNUEMOTHORAX/CHEST TUBE /WEDGE RESECTION TUMOR LT UPPER LOBE. Past Anesthesia/Blood Transfusion Reactions: No Reported Reaction Past Psychological History: No Psychological Hx Reported Additional Psychological History / Comment(s): PT HAS BEEN A [place] SINCE DISCHARGE FROM [facility] IN [place]. STATED HE USES A CANE AND 1 TO ASSIST. O2 WHEN NEEDED. . No experience. No international travel Smoking Status: Former smoker Past Alcohol Use History: None Reported Additional Past Alcohol Use History / Comment(s): STARTED SMOKING AT AGE 12 SMOKED 4 PPD. QUIT 2006 Past Drug Use History: None Reported - Past Family History Father Family Medical History: CVA/TIA Mother Family Medical History: Cancer Medications and Allergies Home Medications Medication Instructions Recorded Confirmed Type Budesonide-Formot 160-4.5 Mcg 2 puff INHALATION RT-BID@0800,1700 05/22/14 10/31/19 History [Symbicort 160-4.5 Mcg Inhaler] Bisacodyl [Dulcolax] 10 mg RECTAL DAILY PRN 04/03/17 10/31/19 History Calcium Carbonate [Tums] 500 mg PO Q8H PRN 04/03/17 10/31/19 History Nitroglycerin Sl Tabs [Nitrostat] 0.4 mg SUBLINGUAL Q5M PRN #20 tab 04/05/17 10/31/19 Rx Acetaminophen [Tylenol] 650 mg PO Q6H PRN 10/20/18 10/31/19 History Ferrous Sulfate [Feosol] 325 mg PO DAILY@1700 10/20/18 10/31/19 History Folic Acid 1 mg PO DAILY@17010/20/18 10/31/19 History Magnesium Oxide 400 mg PO DAILY@169910/20/18 10/31/19 History Montelukast [Singulair] 10 mg PO DAILY@0800 10/20/18 10/31/19 History Na Phos,M-B/Na Phos,Di-Ba [Fleet 133 ml RECTAL DAILY PRN 10/20/18 10/31/19 History Adult] Potassium Chloride ER [K-Dur ] 30 meq PO DAILY@0800 10/20/18 10/31/19 History Atorvastatin [Lipitor] 40 mg PO HS@2100 10/31/19 10/31/19 History Diltiazem Oral [Cardizem Oral] 30 mg PO TID@0600,1400,2200 10/31/19 10/31/19 History Divalproex [Depakote] 250 mg PO TID@0600,1400,2200 10/31/19 10/31/19 History Furosemide [Lasix] 40 mg PO BID@0800,1700 10/31/19 10/31/19 History Glucerna Shake 237 ml PO TID@0800,1200,1700 10/31/19 10/31/19 History Insulin Lispro [humaLOG] See Protocol SQ ACHS 10/31/19 10/31/19 History Ipratropium-Albuterol Nebulize 3 ml INHALATION RT-QID PRN 10/31/19 10/31/19 History [Duoneb 0.5 mg-3 mg/3 ml Soln] Kenalog-40 Suspension 1 ml INTRAARTIC ONCE PRN 10/31/19 10/31/19 History Levothyroxine Sodium [Synthroid] 88 mcg PO DAILY@0600 10/31/19 10/31/19 History Lidocaine 2% Soultion 2 ml INTRAARTIC ONCE PRN 10/31/19 10/31/19 History Magnesium Hydroxide [Milk of 7,200 mg PO Q48H PRN 10/31/19 10/31/19 History Magnesia Concentrate] Metoprolol Succinate [Kapspargo 25 mg PO DAILY@0800 10/31/19 10/31/19 History Sprinkle] Midodrine [ProAmatine] 5 mg PO TID@0700,1200,1700 10/31/19 10/31/19 History Omeprazole [PriLOSEC] 40 mg PO DAILY@0600 10/31/19 10/31/19 History PARoxetine [Paxil] 10 mg PO DAILY@0800 10/31/19 10/31/19 History Saccharomyces Boulardii 250mg 1 cap PO BID@0800,1700 10/31/19 10/31/19 History Capsule Sodium Chloride [[place]] 1 spray EA NOSTRIL Q1H PRN 10/31/19 10/31/19 History rOPINIRole HCL [Requip] 0.5 mg PO TID@0600,1400,2100 10/31/19 10/31/19 History traMADol HCL 50 mg PO Q6H PRN 10/31/19 10/31/19 History Allergies Allergy/AdvReac Type Severity Reaction Status Date / Time phenobarbital Allergy Unknown Hallucinati Verified 10/31/19 17:07 ons Influenza Virus Vaccines Allergy Unknown Verified 10/31/19 17:07 Physical Exam Vitals: Vital Signs Temp Pulse Pulse Resp BP BP BP 10/31/19 19:00 89 16 132/71 10/31/19 17:50 101 H 16 134/67 10/31/19 15:15 87 18 138/80 10/31/19 14:34 140 H 88/48 10/31/19 14:32 101 H 140/73 10/31/19 14:30 92 10/31/19 14:27 91 16 127/83 10/31/19 14:24 97.8 F 91 18 104/68 BP Pulse Ox 10/31/19 19:00 99 10/31/19 17:50 100 10/31/19 15:15 100 10/31/19 14:34 10/31/19 14:32 10/31/19 14:30 130/68 10/31/19 14:27 100 10/31/19 14:24 100 Intake and Output 10/31/19 10/31/19 10/31/19 06:59 14:59 22:59 Other: Weight 57.153 kg 57.153 kg PHYSICAL EXAMINATION: Patient is lying in the bed comfortably, no acute distress, awake alert and oriented.. HEENT: Normocephalic. Neck is supple. Pupils reactive. Nostrils clear. Oral cavity is moist. Ears reveal no drainage. Neck reveals no JVD, carotid bruits, or thyromegaly. CHEST EXAMINATION: Trachea is central. Symmetrical expansion. bilaleral fine crackes. no wheezing. CARDIAC: Normal S1, S2 with no gallops. No murmurs ABDOMEN: Soft. Bowel sounds normal. No organomegaly. No abdominal bruits. Extremities: reveal no edema. No clubbing or cyanosis. tachycardic Neurologically awake, alert, oriented x3 with well-coordinated movements. No focal deficits noted Skin: No rash or skin lesions. Psychiatric: Coperative. Nonsuicidal Musculoskeletal: No joint swelling or deformity. Normal range of motion. Results CBC & Chem 7: 10/31/19 14:30 10/31/19 14:30 Labs: Abnormal Lab Results - Last 24 Hours (Table) 10/31/19 10/31/19 10/31/19 Range/Units 14:30 14:30 14:30 RBC 2.78 L (4.30-5.90) m/uL Hgb 9.2 L (13.0-17.5) gm/dL Hct 27.9 L (39.0-53.0) % MCV 100.4 H (80.0-100.0) fL RDW 21.4 H (11.5-15.5) % Neutrophils # 8.0 H (1.3-7.7) k/uL APTT 94.6 H (22.0-30.0) sec Potassium 3.0 L (3.5-5.1) mmol/L Chloride 93 L (98-107) mmol/L BUN 79 H (9-20) mg/dL Creatinine 1.68 H (0.66-1.25) mg/dL Glucose 126 H (74-99) mg/dL POC Glucose (mg/dL) (75-99) mg/dL 10/31/19 Range/Units 19:18 RBC (4.30-5.90) m/uL Hgb (13.0-17.5) gm/dL Hct (39.0-53.0) % MCV (80.0-100.0) fL RDW (11.5-15.5) % Neutrophils # (1.3-7.7) k/uL APTT (22.0-30.0) sec Potassium (3.5-5.1) mmol/L Chloride (98-107) mmol/L BUN (9-20) mg/dL Creatinine (0.66-1.25) mg/dL Glucose (74-99) mg/dL POC Glucose (mg/dL) 142 H (75-99) mg/dL Thrombosis Risk Factor Assmnt - DVT/VTE Prophylaxis DVT/VTE Prophylaxis: Pharmacologic Prophylaxis ordered - Choose All That Apply Each Factor Represents 1 point: Abnormal pulmonary function (COPD) Each Risk Factor Represents 2 Points: Age 61-74 years, Patient confined to bed Thrombosis Risk Factor Assessment Total Risk Factor Score: 5 Thrombosis Risk Factor Assessment Level: High Risk Assessment and Plan Assessment: Dizziness and near syncope secondary to orthostatic hypotension with volume depletion Chronic orthostatic hypotension. On midodrine new left greater than right bilateral acute infiltrates in the upper lungs. possible Pneumonia Hypokalemia . replaced. Acute kidney injury with significant elevated BUN and creatinine 1.68. Creatinine baseline 1.5 Elevated BUN without evidence of acute CHF. 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 stable present study Seizure disorder History of CVA History of peptic ulcer disease Macrocytic anemia with hemoglobin 9.2 Chronic low back pain Previous history of smoking DVT prophylaxis with heparin subcu Plan: Patient will be continued telemetry monitoring. Will hold diuretics and continue with gentle hydration. Continue with Midrin. Continue with metoprolol and Cardizem as blood pressure tolerates. Since the patient is still tachycardic. Telemetry monitoring. Cardiology was consulted. Continue with home medications and follow-up closely. Further recommendations based on the clinical course. Prognosis guarded with multiple medical problems and comorbid conditions. Time with Patient: Greater than 30
[2019-10-31] MEDS ORDERED: LEVOFLOXACIN 500MG-D5W PMX 500 MG in DEXTROSE/WATER 1 100ML.BAG IVPB ONE (23:30)
[2019-10-31] MEDS: DIVALPROEX 250 MG TABLET.DR PO SCH (23:55)
[2019-10-31] MEDS: DILTIAZEM ORAL 30 MG TAB PO SCH (23:56)
[2019-11-01] MEDS: LEVOTHYROXINE 88 MCG TAB PO SCH (06:22)
[2019-11-01] MEDS: DIVALPROEX 250 MG TABLET.DR PO SCH ×3 (06:22→21:10)
[2019-11-01] MEDS: PANTOPRAZOLE 40 MG TABLET PO SCH (06:22)
[2019-11-01] MEDS: DILTIAZEM ORAL 30 MG TAB PO SCH ×3 (06:22→21:09)
[2019-11-01 06:27] LABS: Anisocytosis Moderate; HCT 28.3 % (39.0-53.0); HGB 9.5 gm/dL (13.0-17.5); Hypochromasia Slight; MCHC 33.7 g/dL (31.0-37.0); MCV 100.9 fL (80.0-100.0); Macrocytosis Moderate; Mean Platelet Volume 9.8; Platelet Count 292 k/uL (150-450); Poikilocytosis Slight; RDW 20.8 % (11.5-15.5); WBC 9.2 k/uL (3.8-10.6)
[2019-11-01 06:35] LABS: Calcium 8.7 mg/dL (8.4-10.2); Potassium 3.1 mmol/L (3.5-5.1)
[2019-11-01 07:17] LABS: Band Neutrophils % 5 %; Metamyelocytes # (M) 0.18 k/uL (0); Metamyelocytes % 2 %; Monocytes # (M) 0.83 k/uL (0-1.0); Neutrophils % (M) 74 %; Nucleated Red Blood Cells 0 /100 WBC (0-0); Total Cells Counted 200
[2019-11-01 07:20] LABS: Large Platelets Present
[2019-11-01 07:21] LABS: Poikilocytosis (M) Present; Polychromasia Present
[2019-11-01] MEDS: SYMBICORT 160-4.5 MCG INHALER INHALATION SCH ×3 (07:52→19:41)
[2019-11-01] MEDS ORDERED: NON FORMULARY DRUG (Glucerna Shake 237 ML) PO SCH (08:00)
[2019-11-01] MEDS: METOPROLOL SUCCINATE (ER) 25 MG TAB.ER.24H PO SCH (08:36)
[2019-11-01] MEDS: MONTELUKAST 10 MG TAB PO SCH (08:36)
[2019-11-01] MEDS: POTASSIUM CHLORIDE ER 10 MEQ TAB.ER.PRT PO SCH (08:36)
[2019-11-01] MEDS: HEPARIN SODIUM,PORCINE 5,000 UNIT/ML 1 ML VIAL SQ SCH ×2 (08:36→21:10)
[2019-11-01 10:06] VITALS: BMI 18.5
[2019-11-01] MEDS: MIDODRINE 5 MG TAB PO SCH ×2 (13:06→16:45)
--- NOTE | 2019-11-01 14:47 | P.CNPUL ---
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 difficile colitis in the past along with lung cancer on the left side which is being monitored by radiographic studies, patient also have severe degree of degenerative joint disease osteoarthritis Review of Systems All systems: negative Past Medical History Past Medical History: Atrial Fibrillation, Cancer, Chest Pain / Angina, COPD, CVA/TIA, GERD/Reflux, GI Bleed, Hyperlipidemia, Hypertension, Myocardial Infarction ([place]), Musculoskeletal Disorder, Renal Disease, Seizure Disorder Additional Past Medical History / Comment(s): colonoscopy then laparoscopic sigmoid colectomy for adenocarcinoma was performed on 07/19/14. Other HX: colon cancer found during colonoscopy-polyp which was adenocarcinoma, SQUAMOUS CELL CARCINOMA LT UPPER LOBE. ULCER; EPILEPTIC - STATES LAST SEIZURE PREV TO 1994; CVA - AFFECTS SPEECH/able to print but not write in cursive. UNABLE TO COMPLETELY CLOSE LEFT HAND R/T hx of LARGE LACERATION. HX OF RT HIP DISORDER, WORE CAST, THEN BRACE FOR 2 YRS, chronic low back pain, renal cysts and kidney stones, GI bleed associated with anticoaulation. Has home O2 which he uses when necessary Last Myocardial Infarction Date:: patient reports 19 years ago History of Any Multi-Drug Resistant Organisms: None Reported, C-DIFF Date of last positivie culture/infection: 10/23/18 MDRO Source:: stool Past Surgical History: Orthopedic Surgery Additional Past Surgical History / Comment(s): 07/19/14 Laparoscopic sigmoid colectomy. LEFT HAND SX, EXC VILMA CATARACTS; COLONOSCOPY 05/26/14.BRONCH/BX- PNUEMOTHORAX/CHEST TUBE /WEDGE RESECTION TUMOR LT UPPER LOBE. Past Anesthesia/Blood Transfusion Reactions: No Reported Reaction Past Psychological History: No Psychological Hx Reported Smoking Status: Former smoker Past Alcohol Use History: None Reported Past Drug Use History: None Reported - Past Family History Father Family Medical History: CVA/TIA Mother Family Medical History: Cancer Medications and Allergies Home Medications Medication Instructions Recorded Confirmed Type Budesonide-Formot 160-4.5 Mcg 2 puff INHALATION RT-BID@0800,1700 05/22/14 10/31/19 History [Symbicort 160-4.5 Mcg Inhaler] Bisacodyl [Dulcolax] 10 mg RECTAL DAILY PRN 04/03/17 10/31/19 History Calcium Carbonate [Tums] 500 mg PO Q8H PRN 04/03/17 10/31/19 History Nitroglycerin Sl Tabs [Nitrostat] 0.4 mg SUBLINGUAL Q5M PRN #20 tab 04/05/17 10/31/19 Rx Acetaminophen [Tylenol] 650 mg PO Q6H PRN 10/20/18 10/31/19 History Ferrous Sulfate [Feosol] 325 mg PO DAILY@17010/20/18 10/31/19 History Folic Acid 1 mg PO DAILY@169910/20/18 10/31/19 History Magnesium Oxide 400 mg PO DAILY@169910/20/18 10/31/19 History Montelukast [Singulair] 10 mg PO DAILY@0800 10/20/18 10/31/19 History Na Phos,M-B/Na Phos,Di-Ba [Fleet 133 ml RECTAL DAILY PRN 10/20/18 10/31/19 History Adult] Potassium Chloride ER [K-Dur 20] 30 meq PO DAILY@0800 10/20/18 10/31/19 History Atorvastatin [Lipitor] 40 mg PO HS@2100 10/31/19 10/31/19 History Diltiazem Oral [Cardizem Oral] 30 mg PO TID@0600,1400,2200 10/31/19 10/31/19 History Divalproex [Depakote] 250 mg PO TID@0600,1400,2200 10/31/19 10/31/19 History Furosemide [Lasix] 40 mg PO BID@0800,1700 10/31/19 10/31/19 History Glucerna Shake 237 ml PO TID@0800,1200,1700 10/31/19 10/31/19 History Insulin Lispro [humaLOG] See Protocol SQ ACHS 10/31/19 10/31/19 History Ipratropium-Albuterol Nebulize 3 ml INHALATION RT-QID PRN 10/31/19 10/31/19 History [Duoneb 0.5 mg-3 mg/3 ml Soln] Kenalog-40 Suspension 1 ml INTRAARTIC ONCE PRN 10/31/19 10/31/19 History Levothyroxine Sodium [Synthroid] 88 mcg PO DAILY@0600 10/31/19 10/31/19 History Lidocaine 2% Soultion 2 ml INTRAARTIC ONCE PRN 10/31/19 10/31/19 History Magnesium Hydroxide [Milk of 7,200 mg PO Q48H PRN 10/31/19 10/31/19 History Magnesia Concentrate] Metoprolol Succinate [Kapspargo 25 mg PO DAILY@0800 10/31/19 10/31/19 History Sprinkle] Midodrine [ProAmatine] 5 mg PO TID@0700,1200,1700 10/31/19 10/31/19 History Omeprazole [PriLOSEC] 40 mg PO DAILY@0600 10/31/19 10/31/19 History PARoxetine [Paxil] 10 mg PO DAILY@0800 10/31/19 10/31/19 History Saccharomyces Boulardii 250mg 1 cap PO BID@0800,1700 10/31/19 10/31/19 History Capsule Sodium Chloride [[place]] 1 spray EA NOSTRIL Q1H PRN 10/31/19 10/31/19 History rOPINIRole HCL [Requip] 0.5 mg PO TID@0600,1400,2100 10/31/19 10/31/19 History traMADol HCL 50 mg PO Q6H PRN 10/31/19 10/31/19 History Allergies Allergy/AdvReac Type Severity Reaction Status Date / Time phenobarbital Allergy Unknown Hallucinati Verified 10/31/19 17:07 ons Influenza Virus Vaccines Allergy Unknown Verified 10/31/19 17:07 Physical Exam Vitals: Vital Signs Temp Pulse Pulse Pulse Resp BP BP 11/01/19 11:53 99 F 90 16 156/67 11/01/19 11:52 87 14 11/01/19 08:00 98 F 87 14 11/01/19 04:00 98 F 96 17 11/01/19 00:00 98 F 112 H 19 10/31/19 20:00 98.2 F 95 14 10/31/19 19:00 89 16 132/71 10/31/19 17:50 101 H 16 134/67 10/31/19 15:15 87 18 138/80 BP Pulse Ox 11/01/19 11:53 11/01/19 11:52 11/01/19 08:00 147/68 98 11/01/19 04:00 133/87 100 11/01/19 00:00 112/68 99 10/31/19 20:00 97/68 100 10/31/19 19:00 99 10/31/19 17:50 100 10/31/19 15:15 100 Intake and Output 10/31/19 11/01/19 11/01/19 22:59 06:59 14:59 Intake Total 150 400 Output Total 250 780 Balance -100 -380 Intake: IV 150 400 Levofloxacin 500Mg-D5w 100 Pmx 500 mg In Dextrose/ Water 1 100ml.bag @ 100 mls/hr IVPB ONCE ONE Rx#: [id number] Sodium Chloride 0.9% 1, 50 400 000 ml @ 50 mls/hr IV . Q20H RADHA Rx#:[id number] Output: Urine 250 780 Other: Weight 57.153 kg 58.5 kg 58.5 kg - Constitutional General appearance: average body habitus, cooperative, disheveled - EENT Eyes: PERRLA ENT: hard of hearing Ears: bilateral: normal - Neck Carotids: bilateral: upstroke normal - Respiratory Respiratory: bilateral: diminished - Cardiovascular Rhythm: regular Heart sounds: normal: S1, S2 - Gastrointestinal General gastrointestinal: normal bowel sounds, soft - Neurologic Neurologic: CNII-XII intact - Musculoskeletal Musculoskeletal: gait normal, generalized weakness, strength equal bilaterally - Psychiatric Psychiatric: A&O x's 3, appropriate affect, intact judgment & insight Results - Laboratory Findings CBC and BMP: 11/01/19 05:39 11/01/19 05:39 PT/INR, D-dimer PT 11.3 sec (9.0-12.0) 10/31/19 19:22 INR 1.1 (<1.2) 10/31/19 19:22 Abnormal lab findings: Abnormal Labs 10/31/19 10/31/19 10/31/19 14:30 14:30 14:30 RBC 2.78 L Hgb 9.2 L Hct 27.9 L MCV 100.4 H RDW 21.4 H Neutrophils # 8.0 H Metamyelocytes # (Man) APTT 94.6 H Sodium Potassium 3.0 L Chloride 93 L BUN 79 H Creatinine 1.68 H Glucose 126 H POC Glucose (mg/dL) 10/31/19 11/01/19 11/01/19 19:18 05:39 05:39 RBC 2.80 L Hgb 9.5 L Hct 28.3 L MCV 100.9 H RDW 20.8 H Neutrophils # Metamyelocytes # (Man) 0.18 H APTT Sodium 136 L Potassium 3.1 L Chloride 97 L BUN 70 H Creatinine 1.54 H Glucose 136 H POC Glucose (mg/dL) 142 H - Diagnostic Findings Chest x-ray: report reviewed, image reviewed (Finding as noted above) Assessment and Plan Assessment: Chronic interstitial lung disease/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 History of lung cancer status post wedge resection Dizziness lightheadedness due to chronic hypotension exacerbated by hypovolemia Indices severe COPD without exacerbation Chronic kidney disease stage III Hypertension hypertensive cardiovascular disease History of colon cancer status post colon: Resection at the sigmoid colon level History of CVA peptic ulcer disease and chronic microcytic anemia and anemia Plan: Continue bronchodilators Continue supplemental oxygen Fluid resuscitation however patient is has borderline heart function avoid fluid overload Monitor and observe patient off of steroids and antibiotics Medication adjustment Further plan of care and recommendation as per clinical response of patient Time with Patient: Greater than 30
--- NOTE | 2019-11-01 15:14 | CONS ---
CONSULTATION This is a 69-year-old gentleman who is admitted to the hospital with symptomatic orthostatic hypotension. He has complex and multiple medical problems including chronic diastolic heart failure, chronic permanent atrial fibrillation, not on anticoagulation secondary to GI bleed, orthostatic hypotension, COPD on home O2, interstitial lung disease, who is currently at the [facility] and apparently had hypotension and questionable syncope. The patient had hypotension and these symptoms have been happening on and off for the last 1 week due to which he is readmitted to hospital. The patient is on Lasix and Zaroxolyn which are currently on hold. Was on Midodrine which I am going to resume. He is in atrial fibrillation with heart rate is well controlled with Cardizem and beta matt. PAST MEDICAL HISTORY: Significant for permanent atrial fibrillation, CVA, GERD, hypertension, dyslipidemia, GI bleed, musculoskeletal disorder, seizure disorder, and renal disease. PAST SURGICAL HISTORY: Significant for sigmoid resection, bilateral cataract surgery. MEDICATIONS: Medications at home include tramadol, Requip, K-Dur, Paxil, Prilosec, Singulair, midodrine 5 t.i.d., metoprolol, Synthroid, insulin, Lasix, Depakote, Cardizem, Lipitor and Tylenol. ALLERGIC: PHENOBARB AND INFLUENZA. FAMILY HISTORY: Negative for premature coronary artery disease. SOCIAL HISTORY: Negative for current smoking, history of ETOH or drug abuse. REVIEW OF SYSTEMS: HEENT is unremarkable. CARDIAC as described above. RESPIRATORY as described above. GI negative. GENITOURINARY negative. ALLERGY none. IMMUNOLOGY negative. SKIN negative. MUSCULOSKELETAL significant for arthritis. PSYCHOSOCIAL negative. ENDOCRINE negative. DERM negative. CONSTITUTIONAL negative. ONCOLOGICAL negative. BURRER HAND negative. PHYSICAL EXAMINATION: On exam, patient is comfortable at rest. Afebrile. Heart rate is 87 beats per minute, irregular. Blood pressure is 147/60. Respirations 18. O2 sat is 98% on room air. NECK: There is no jugular venous distention. CHEST exam reveals diminished air entry with occasional rhonchi. HEART exam reveals first and second heart sounds. No gallop. Exam of EXTREMITIES did not reveal any edema. Peripheral pulses are felt palpable. LABS: Labs show that the hemoglobin is 9.5, platelet count is 290, potassium is 3.1, BUN is 70, creatinine 1.5. ASSESSMENT: Orthostatic hypotension, probably secondary to intravascular volume depletion. PLAN: Please hold the diuretics at this time and resume the Midodrine and supplement the potassium. MMODL / IJN: [id number] /
--- NOTE | 2019-11-01 16:07 | P.PN ---
Subjective Progress Note Date: 11/01/19 69-year-old male with a known history of chronic CHF with diastolic dysfunction, chronic atrial fibrillation not on any anticoagulation due to history of GI bleed, Orthostatic hypotension currently on midodrine 5 mg 3 times daily, chronic hypoxic respiratory failure on 3 L oxygen, chronic interstitial lung changes and history of lung cancer and CKD stage III with baseline creatinine around 1.5 and other multiple medical problems was sent to hospital from [facility] facility due to hypotension and feeling of passed out. Patient has been having on and off symptoms for the past 1 week. Denied any loss of consciousness. Patient had multiple blood pressure medications including Lasix 40 mg daily along with Zaroxolyn. Even after adjusting blood pressure medications patient still having nears syncopal episodes. Patient was sent to hospital for evaluation. Patient has been becoming more symptomatic and could not ambulate without symptoms of passing out. Objective - Vital Signs Vital signs: Vital Signs Temp 99 F 11/01/19 11:53 Pulse 90 11/01/19 11:53 Resp 16 11/01/19 11:53 BP 156/67 11/01/19 11:53 Pulse Ox 98 11/01/19 08:00 Intake & Output 10/31/19 11/01/19 11/01/19 18:59 06:59 18:59 Intake Total 150 400 Output Total 250 780 Balance -100 -380 Weight 57.153 kg 58.5 kg 58.5 kg Intake: IV 150 400 Levofloxacin 500Mg-D5w 100 Pmx 500 mg In Dextrose/ Water 1 100ml.bag @ 100 mls/hr IVPB ONCE ONE Rx#: [id number] Sodium Chloride 0.9% 1, 50 400 000 ml @ 50 mls/hr IV . Q20H [facility] Rx#:[id number] Output: Urine 250 780 - Exam PHYSICAL EXAMINATION: GENERAL: The patient is alert and oriented x3, not in any acute distress. Well d eveloped, well nourished. HEENT: Pupils are round and equally reacting to light. EOMI. No scleral icterus. No conjunctival pallor. Normocephalic, atraumatic. No pharyngeal erythema. No thyromegaly. CARDIOVASCULAR: S1 and S2 present. No murmurs, rubs, or gallops. PULMONARY: Chest is clear to auscultation, no wheezing or crackles. ABDOMEN: Soft, nontender, nondistended, normoactive bowel sounds. No palpable organomegaly. MUSCULOSKELETAL: No joint swelling or deformity. EXTREMITIES: No cyanosis, clubbing, or pedal edema. NEUROLOGICAL: Gross neurological examination did not reveal any focal deficits. SKIN: No rashes. - Labs CBC & Chem 7: 11/01/19 05:39 11/01/19 05:39 Labs: Abnormal Lab Results - Last 24 Hours (Table) 10/31/19 10/31/19 10/31/19 Range/Units 14:30 14:30 14:30 RBC 2.78 L (4.30-5.90) m/uL Hgb 9.2 L (13.0-17.5) gm/dL Hct 27.9 L (39.0-53.0) % MCV 100.4 H (80.0-100.0) fL RDW 21.4 H (11.5-15.5) % Neutrophils # 8.0 H (1.3-7.7) k/uL Metamyelocytes # (Man) (0) k/uL APTT 94.6 H (22.0-30.0) sec Sodium (137-145) mmol/L Potassium 3.0 L (3.5-5.1) mmol/L Chloride 93 L (98-107) mmol/L BUN 79 H (9-20) mg/dL Creatinine 1.68 H (0.66-1.25) mg/dL Glucose 126 H (74-99) mg/dL POC Glucose (mg/dL) (75-99) mg/dL 10/31/19 11/01/19 11/01/19 Range/Units 19:18 05:39 05:39 RBC 2.80 L (4.30-5.90) m/uL Hgb 9.5 L (13.0-17.5) gm/dL Hct 28.3 L (39.0-53.0) % MCV 100.9 H (80.0-100.0) fL RDW 20.8 H (11.5-15.5) % Neutrophils # (1.3-7.7) k/uL Metamyelocytes # (Man) 0.18 H (0) k/uL APTT (22.0-30.0) sec Sodium 136 L (137-145) mmol/L Potassium 3.1 L (3.5-5.1) mmol/L Chloride 97 L (98-107) mmol/L BUN 70 H (9-20) mg/dL Creatinine 1.54 H (0.66-1.25) mg/dL Glucose 136 H (74-99) mg/dL POC Glucose (mg/dL) 142 H (75-99) mg/dL Assessment and Plan Assessment: Dizziness and near syncope secondary to orthostatic hypotension with volume depletion Chronic orthostatic hypotension. On midodrine new left greater than right bilateral acute infiltrates in the upper lungs. possible Pneumonia Hypokalemia . replaced. Acute kidney injury with significant elevated BUN and creatinine 1.68. Creatinine baseline 1.5 Elevated BUN without evidence of acute CHF. 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 stable present study Seizure disorder History of CVA History of peptic ulcer disease Macrocytic anemia with hemoglobin 9.2 Chronic low back pain Previous history of smoking DVT prophylaxis with heparin subcu Plan: Patient will be continued telemetry monitoring. Will hold diuretics and continue with gentle hydration. Continue with Midrin. Continue with metoprolol and Cardizem as blood pressure tolerates. Since the patient is still tachycardic. Telemetry monitoring. Cardiology was consulted.
[2019-11-01] MEDS: FOLIC ACID 1 MG TAB PO SCH (16:46)
[2019-11-01] MEDS: ATORVASTATIN 40 MG TAB PO SCH (21:09)
[2019-11-02] MEDS: PANTOPRAZOLE 40 MG TABLET PO SCH (05:56)
[2019-11-02] MEDS: DILTIAZEM ORAL 30 MG TAB PO SCH ×3 (05:56→20:45)
[2019-11-02] MEDS: LEVOTHYROXINE 88 MCG TAB PO SCH (05:57)
[2019-11-02] MEDS: MIDODRINE 5 MG TAB PO SCH ×3 (05:57→17:12)
[2019-11-02] MEDS: DIVALPROEX 250 MG TABLET.DR PO SCH ×3 (05:57→20:44)
[2019-11-02] MEDS: SYMBICORT 160-4.5 MCG INHALER INHALATION SCH ×2 (08:30→20:47)
[2019-11-02] MEDS: POTASSIUM CHLORIDE ER 10 MEQ TAB.ER.PRT PO SCH (09:34)
[2019-11-02] MEDS: MONTELUKAST 10 MG TAB PO SCH (09:36)
[2019-11-02] MEDS: HEPARIN SODIUM,PORCINE 5,000 UNIT/ML 1 ML VIAL SQ SCH ×2 (09:37→20:44)
[2019-11-02] MEDS ORDERED: POTASSIUM CHLORIDE ER 20 MEQ TAB.ER PO STA (09:44)
[2019-11-02 11:08] LABS: Calcium 8.5 mg/dL (8.4-10.2)
[2019-11-02] MEDS: ACETAMINOPHEN TAB 325 MG TAB PO PRN (11:29)
[2019-11-02] MEDS: METOPROLOL SUCCINATE (ER) 25 MG TAB.ER.24H PO SCH (11:30)
[2019-11-02] MEDS ORDERED: Magnesium Replacement Protocol 1 EACH MISC MISCELLANE PRN (11:48)
[2019-11-02] MEDS: MAGNESIUM SULFATE-D5W PMX 1 GM in DEXTROSE/WATER 1 100ML.BAG IVPB SCH ×2 (11:57→13:30)
--- NOTE | 2019-11-02 12:06 | P.PN ---
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 History of lung cancer status post wedge resection Dizziness lightheadedness due to chronic hypotension exacerbated by hypovolemia Indices severe COPD without exacerbation Chronic kidney disease stage III Hypertension hypertensive cardiovascular disease History of colon cancer status post colon: Resection at the sigmoid colon level History of CVA peptic ulcer disease and chronic microcytic anemia and anemia 11/02/2019, patient seen eval examined during the rounds labs reviewed medications reviewed, patient has been doing well denies any chest pain cough or sputum production shortness of breath is present respiration and exertion patient is doing well on bronchodilator along with oxygen, hemodynamic status stable room air oxygen saturation is 95%, This is a 69-year-old patient with 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 patient is well-known to me for a history of lung cancer on the left side status post a resection followed by radiation therapy, patient has 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 difficile colitis in the past along with lung cancer on the left side which is being monitored by radiographic studies, patient also have severe degree of degenerative joint disease osteoarthritis Objective - Vital Signs Vital signs: Vital Signs Temp 97.7 F 11/02/19 11:49 Pulse 94 11/02/19 11:49 Resp 20 11/02/19 11:49 BP 140/67 11/02/19 11:49 Pulse Ox 95 11/02/19 11:49 Intake & Output 11/01/19 11/02/19 11/02/19 18:59 06:59 18:59 Intake Total 450 150 520 Output Total 1320 450 400 Balance -870 -300 120 Weight 58.5 kg 60.1 kg Intake: IV 450 150 400 Sodium Chloride 0.9% 1, 450 150 400 000 ml @ 50 mls/hr IV . Q20H [facility] Rx#:[id number] Oral 120 Output: Urine 1320 450 400 Other: Voiding Method Toilet Urinal Urinal # Voids 1 # Bowel Movements 1 - Exam - Constitutional General appearance: average body habitus, cooperative, disheveled - EENT Eyes: PERRLA ENT: hard of hearing Ears: bilateral: normal - Neck Carotids: bilateral: upstroke normal - Respiratory Respiratory: bilateral: diminished - Cardiovascular Rhythm: regular Heart sounds: normal: S1, S2 - Gastrointestinal General gastrointestinal: normal bowel sounds, soft - Neurologic Neurologic: CNII-XII intact - Musculoskeletal Musculoskeletal: gait normal, generalized weakness, strength equal bilaterally - Psychiatric Psychiatric: A&O x's 3, appropriate affect, intact judgment & insight - Labs CBC & Chem 7: 11/01/19 05:39 11/02/19 09:53 Labs: Abnormal Lab Results - Last 24 Hours (Table) 11/02/19 11/02/19 Range/Units 09:53 09:53 Sodium 136 L (137-145) mmol/L Potassium 3.0 L (3.5-5.1) mmol/L BUN 54 H (9-20) mg/dL Creatinine 1.45 H (0.66-1.25) mg/dL Glucose 193 H (74-99) mg/dL Magnesium 1.2 L (1.6-2.3) mg/dL Assessment and Plan Assessment: Chronic interstitial lung disease/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 History of lung cancer status post wedge resection Dizziness lightheadedness due to chronic hypotension exacerbated by hypovolemia Indices severe COPD without exacerbation Chronic kidney disease stage III Hypertension hypertensive cardiovascular disease History of colon cancer status post colon: Resection at the sigmoid colon level History of CVA peptic ulcer disease and chronic microcytic anemia and anemia Plan: Continue bronchodilators Continue supplemental oxygen Fluid resuscitation however patient is has borderline heart function avoid fluid overload Monitor and observe patient off of steroids and antibiotics Medication adjustment Further plan of care and recommendation as per clinical response of patient Time with Patient: Greater than 30
--- NOTE | 2019-11-02 12:13 | P.PN ---
Subjective Progress Note Date: 11/02/19 This is a 69-year-old male patient with symptomatic orthostatic hypotension. Past medical history of chronic diastolic heart failure, chronic permanent atrial fibrillation not on anticoagulation secondary to GI bleed, COPD on home O2, interstitial lung disease. Patient is currently residing at [facility] and had hypotension and questionable syncopal episode there. Symptoms have been on and off for the past 1 week. Patient was on Lasix and Zaroxolyn which are on hold. Patient has been resumed on midodrine. EKG was atrial fibrillation with controlled heart rate. Patient has been started on midodrine 5 mg 3 times daily. Orthostatic vital signs this morning are negative. Repeat electrolytes reveals sodium 136, potassium 3.0, chloride 102, CO2 23, BUN 54 and creatinine 1.45, magnesium 1.2. Physical examination: Gen: This is a 69-year-old male. Patient is resting in bed and appears to be comfortable. VS: Afebrile, heart rate 94-116, blood pressure 140/67, pulse ox 95% on room air . HEENT: Head is atraumatic, normocephalic. Pupils equal, round. Sclerae is anicteric. NECK: Supple. No JVD. No lymphadenopathy. No thyromegaly. LUNGS: Clear to auscultation. No wheezes or rhonchi. No intercostal retractions. HEART: Regular rate and rhythm. No murmur. ABDOMEN: Soft. Bowel sounds are present. No masses. No tenderness. EXTREMITIES: No pedal edema. No calf tenderness. NEUROLOGICAL: Patient is awake, alert and oriented x3. Cranial nerves 2 through 12 are grossly intact. Assessment: Orthostatic hypotension Electrolyte abnormalities with hypokalemia, hypomagnesemia Chronic diastolic heart failure Chronic persistent atrial fibrillation not on anticoagulation secondary to GI bleed COPD Plan: Continue midodrine 5 mg 3 times daily Potassium and magnesium have been replaced Continue current cardiac medications Further recommendations to follow based upon clinical course Nurse practitioner note has been reviewed, I agree with documented findings and plan of care. Patient was seen and examined. Objective - Vital Signs Vital signs: Vital Signs Temp 97.5 F L 11/02/19 08:00 Pulse 88 11/02/19 08:00 Resp 24 11/02/19 08:00 BP 93/54 11/02/19 08:00 Pulse Ox 94 L 11/02/19 08:00 Intake & Output 11/01/19 11/02/19 11/02/19 18:59 06:59 18:59 Intake Total 450 150 400 Output Total 1320 450 250 Balance -870 -300 150 Weight 58.5 kg 60.1 kg Intake: IV 450 150 400 Sodium Chloride 0.9% 1, 450 150 400 000 ml @ 50 mls/hr IV . Q20H [facility] Rx#:[id number] Output: Urine 1320 450 250 Other: Voiding Method Toilet Urinal # Voids 1 # Bowel Movements 1 - Labs CBC & Chem 7: 11/01/19 05:39 11/02/19 09:53
[2019-11-02] MEDS ORDERED: Potassium Replacement Protocol 1 EACH MISC MISCELLANE PRN (14:48)
[2019-11-02] MEDS ORDERED: POTASSIUM CHLORIDE ER 20 MEQ TAB.ER PO SCH (17:00)
[2019-11-02] MEDS: FOLIC ACID 1 MG TAB PO SCH (17:12)
--- NOTE | 2019-11-02 18:04 | P.PN ---
Subjective Progress Note Date: 11/02/19 69-year-old male with a known history of chronic CHF with diastolic dysfunction, chronic atrial fibrillation not on any anticoagulation due to history of GI bleed, Orthostatic hypotension currently on midodrine 5 mg 3 times daily, chronic hypoxic respiratory failure on 3 L oxygen, chronic interstitial lung changes and history of lung cancer and CKD stage III with baseline creatinine around 1.5 and other multiple medical problems was sent to hospital from [facility] due to hypotension and feeling of passed out. Patient has been having on and off symptoms for the past 1 week. Denied any loss of consciousness. Patient had multiple blood pressure medications including Lasix 40 mg daily along with Zaroxolyn. Even after adjusting blood pressure medications patient still having nears syncopal episodes. Patient was sent to hospital for evaluation. Patient has been becoming more symptomatic and could not ambulate without symptoms of passing out. 11/02/2019, patient seen eval examined during the rounds labs reviewed medications reviewed, patient has been doing well denies any chest pain cough or sputum production shortness of breath is present respiration and exertion patient is doing well on bronchodilator along with oxygen, hemodynamic status stable room air oxygen saturation is 95% Patient has been evaluated by cardiology with following recommendations; Continue midodrine 5 mg 3 times daily Potassium and magnesium have been replaced; magnesium is down to 1.2 which has been replaced by 2 g of magnesium IV 1 Continue current cardiac medications; Further recommendations to follow based upon clinical course Objective - Vital Signs Vital signs: Vital Signs Temp 97.7 F 11/02/19 11:49 Pulse 94 11/02/19 11:49 Resp 20 11/02/19 11:49 BP 140/67 11/02/19 11:49 Pulse Ox 95 11/02/19 11:49 Intake & Output 11/01/19 11/02/19 11/02/19 18:59 06:59 18:59 Intake Total 450 150 720 Output Total 1320 450 550 Balance -870 -300 170 Weight 58.5 kg 60.1 kg Intake: IV 450 150 400 Sodium Chloride 0.9% 1, 450 150 400 000 ml @ 50 mls/hr IV . Q20H [facility] Rx#:[id number] Intake, IV Titration 200 Amount Magnesium Sulfate-D5w Pmx 200 1 gm In Dextrose/Water 1 100ml.bag @ 100 mls/hr IVPB Q1H [facility] Rx#: [id number] Oral 120 Output: Urine 1320 450 550 Other: Voiding Method Toilet Urinal Urinal # Voids 1 # Bowel Movements 1 - Exam PHYSICAL EXAMINATION: GENERAL: The patient is alert and oriented x3, not in any acute distress. Well developed, well nourished. HEENT: Pupils are round and equally reacting to light. EOMI. No scleral icterus. No conjunctival pallor. Normocephalic, atraumatic. No pharyngeal erythema. No thyromegaly. CARDIOVASCULAR: S1 and S2 present. No murmurs, rubs, or gallops. PULMONARY: Chest is clear to auscultation, no wheezing or crackles. ABDOMEN: Soft, nontender, nondistended, normoactive bowel sounds. No palpable organomegaly. MUSCULOSKELETAL: No joint swelling or deformity. EXTREMITIES: No cyanosis, clubbing, or pedal edema. NEUROLOGICAL: Gross neurological examination did not reveal any focal deficits. SKIN: No rashes. - Labs CBC & Chem 7: 11/01/19 05:39 11/02/19 16:30 Labs: Abnormal Lab Results - Last 24 Hours (Table) 11/02/19 11/02/19 Range/Units 09:53 09:53 Sodium 136 L (137-145) mmol/L Potassium 3.0 L (3.5-5.1) mmol/L BUN 54 H (9-20) mg/dL Creatinine 1.45 H (0.66-1.25) mg/dL Glucose 193 H (74-99) mg/dL Magnesium 1.2 L (1.6-2.3) mg/dL Assessment and Plan Assessment: Dizziness and near syncope secondary to orthostatic hypotension with volume depletion Chronic orthostatic hypotension. On midodrine new left greater than right bilateral acute infiltrates in the upper lungs. possible Pneumonia Hypokalemia . replaced. Acute kidney injury with significant elevated BUN and creatinine 1.68. Creatinine baseline 1.5 Elevated BUN without evidence of acute CHF. 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 stable present study Seizure disorder History of CVA History of peptic ulcer disease Macrocytic anemia with hemoglobin 9.2 Chronic low back pain Previous history of smoking DVT prophylaxis with heparin subcu Plan: Patient will be continued telemetry monitoring. Will hold diuretics and continue with gentle hydration. Continue with Midrin. Continue with metoprolol and Cardizem as blood pressure tolerates. Since the patient is still tachycardic. Telemetry monitoring. Cardiology was consulted.
[2019-11-02] MEDS: ATORVASTATIN 40 MG TAB PO SCH (20:44)
[2019-11-03] MEDS: DILTIAZEM ORAL 30 MG TAB PO SCH ×3 (06:00→19:57)
[2019-11-03] MEDS: MIDODRINE 5 MG TAB PO SCH ×3 (06:00→17:09)
[2019-11-03] MEDS: LEVOTHYROXINE 88 MCG TAB PO SCH (06:00)
[2019-11-03] MEDS: DIVALPROEX 250 MG TABLET.DR PO SCH ×3 (06:00→19:57)
[2019-11-03] MEDS: PANTOPRAZOLE 40 MG TABLET PO SCH (06:00)
[2019-11-03 08:05] LABS: Calcium 8.4 mg/dL (8.4-10.2); Magnesium 1.6 mg/dL (1.6-2.3); Potassium 4.3 mmol/L (3.5-5.1)
[2019-11-03] MEDS: POTASSIUM CHLORIDE ER 10 MEQ TAB.ER.PRT PO SCH (08:28)
[2019-11-03] MEDS: HEPARIN SODIUM,PORCINE 5,000 UNIT/ML 1 ML VIAL SQ SCH ×2 (08:28→19:57)
[2019-11-03] MEDS: METOPROLOL SUCCINATE (ER) 25 MG TAB.ER.24H PO SCH (08:28)
[2019-11-03] MEDS: MONTELUKAST 10 MG TAB PO SCH (08:28)
[2019-11-03] MEDS: ACETAMINOPHEN TAB 325 MG TAB PO PRN (08:32)
[2019-11-03] MEDS: SYMBICORT 160-4.5 MCG INHALER INHALATION SCH ×2 (08:33→20:39)
--- NOTE | 2019-11-03 11:36 | P.PN ---
Subjective Progress Note Date: 11/03/19 This is a 69-year-old male patient with symptomatic orthostatic hypotension. Past medical history of chronic diastolic heart failure, chronic permanent atrial fibrillation not on anticoagulation secondary to GI bleed, COPD on home O2, interstitial lung disease. Patient is currently residing at [facility] and had hypotension and questionable syncopal episode there. Symptoms have been on and off for the past 1 week. Patient was on Lasix and Zaroxolyn which are on hold. Patient has been resumed on midodrine. EKG was atrial fibrillation with controlled heart rate. Patient has been started on midodrine 5 mg 3 times daily. Orthostatic vital signs this morning are negative. Repeat electrolytes reveals sodium 136, potassium 3.0, chloride 102, CO2 23, BUN 54 and creatinine 1.45, magnesium 1.2. 11/02: Repeat orthostatics are negative today. He states his dizziness has resolved. Sodium 136, potassium 4.3, chloride 105, CO2 22, BUN 40 and creatinine 1.45. Physical examination: Gen: This is a 69-year-old male. Patient is resting in bed and appears to be comfortable. VS: Afebrile, heart rate 95, blood pressure 119/66, pulse ox 95% on room air. HEENT: Head is atraumatic, normocephalic. Pupils equal, round. Sclerae is anicteric. NECK: Supple. No JVD. No lymphadenopathy. No thyromegaly. LUNGS: Clear to auscultation. No wheezes or rhonchi. No intercostal retractions. HEART: Regular rate and rhythm. No murmur. ABDOMEN: Soft. Bowel sounds are present. No masses. No tenderness. EXTREMITIES: No pedal edema. No calf tenderness. NEUROLOGICAL: Patient is awake, alert and oriented x3. Cranial nerves 2 through 12 are grossly intact. Assessment: Orthostatic hypotension Electrolyte abnormalities with hypokalemia, hypomagnesemia Chronic diastolic heart failure Chronic persistent atrial fibrillation not on anticoagulation secondary to GI bleed COPD Plan: Continue midodrine 5 mg 3 times daily Potassium and magnesium have been replaced Continue current cardiac medications Patient is cleared from cardiology for discharge home Nurse practitioner note has been reviewed, I agree with documented findings and plan of care. Patient was seen and examined. Objective - Vital Signs Vital signs: Vital Signs Temp 98.3 F 11/03/19 07:58 Pulse 75 11/03/19 07:58 Resp 24 11/03/19 07:58 BP 115/62 11/03/19 07:58 Pulse Ox 96 11/03/19 07:58 Intake & Output 11/02/19 11/03/19 11/03/19 18:59 06:59 18:59 Intake Total 1200 250 50 Output Total 550 900 Balance 650 -650 50 Weight 61.1 kg Intake: IV 400 Sodium Chloride 0.9% 1, 400 000 ml @ 50 mls/hr IV . Q20H [facility] Rx#:[id number] Intake, IV Titration 200 Amount Magnesium Sulfate-D5w Pmx 200 1 gm In Dextrose/Water 1 100ml.bag @ 100 mls/hr IVPB Q1H [facility] Rx#: [id number] Oral 600 250 50 Output: Urine 550 900 Other: Voiding Method Urinal # Voids 2 - Labs CBC & Chem 7: 11/01/19 05:39 11/03/19 06:53 Labs: Abnormal Lab Results - Last 24 Hours (Table) 11/02/19 11/02/19 11/03/19 Range/Units 09:53 09:53 06:53 Sodium 136 L 136 L (137-145) mmol/L Potassium 3.0 L (3.5-5.1) mmol/L BUN 54 H 40 H (9-20) mg/dL Creatinine 1.45 H 1.45 H (0.66-1.25) mg/dL Glucose 193 H 128 H (74-99) mg/dL Magnesium 1.2 L (1.6-2.3) mg/dL
--- NOTE | 2019-11-03 15:25 | P.DS ---
Providers Date of admission: 10/31/19 15:18 Expected date of discharge: 11/03/19 Attending physician: Nitza Irwin Consults: 10/31/19 15:22 Consult Physician Urgent Consulting Provider: [facility] Consult Reason/Comments: orthostatic hypotension Do you want consulting provider notified?: Yes 10/31/19 23:02 Consult Physician Routine Consulting Provider: Rico Nazario Consult Reason/Comments: new interstitial infiltrates Do you want consulting provider notified?: Yes, Notify in am Primary care physician: [facility] Course: Patient is a 69-year-old male with a known history of chronic CHF with diastolic dysfunction, chronic atrial fibrillation not on any anticoagulation due to history of GI bleed, Orthostatic hypotension currently on midodrine 5 mg 3 times daily, chronic hypoxic respiratory failure on 3 L oxygen, chronic interstitial lung changes and history of lung cancer and CKD stage III with baseline creatinine around 1.5 and other multiple medical problems was sent to hospital from [facility] due to hypotension and feeling of passed out. Patient has been having on and off symptoms for the past 1 week. Denied any loss of consciousness. Patient had multiple blood pressure medications including Lasix 40 mg daily along with Zaroxolyn. Even after adjusting blood pressure medications patient still having nears syncopal episodes. Patient was sent to hospital for evaluation. Patient has been becoming more symptomatic and could not ambulate without symptoms of passing out. Otherwise patient denied any complaints of shortness of breath. No chest pain. No leg swelling. No fever no chills. No nausea vomiting or abdominal pain or diarrhea. Laboratory data showed WBC 10.6, hemoglobin 9.2, MCV 100.4 and platelets 320 Sodium 137, potassium 3.0, BUN 79 and creatinine 1.68 Troponin 0 0.015 BNP 5760 TSH 1.47 and cortisol 13 both within normal limits Liver enzymes are not elevated. Chest x-ray showed chronic emphysematous and parenchymal fibrotic changes with the new left greater than right bilateral acute infiltrates in the upper lungs. EKG showed atrial fibrillation with ventricular rate 90 Patient is tachycardic. Afebrile.. Patient is orthostatic positive. Repeat COVID-19 was ordered which was negative. Patient had negative COVID-19 test last month. Plan: Patient will be continued telemetry monitoring. Will hold diuretics and continue with gentle hydration. Continue with Midrin. Continue with metoprolol and Cardizem as blood pressure tolerates. Since the patient is still tachycardic. Telemetry monitoring. Cardiology was consulted. Cardiology recommended to continue midodrine 5 mg 3 times a day for orthostatic hypotension; electrolytes were replaced; repeat orthostatic vital signs are unremarkable; patient is recommended to be discharged on current dose of midodrine and follow-up with PCP Plan - Discharge Summary Discharge Rx Participant: Yes New Discharge Prescriptions: New Midodrine [ProAmatine] 5 mg PO AC-TID #90 tab Continue Budesonide-Formot 160-4.5 Mcg [Symbicort 160-4.5 Mcg Inhaler] 2 puff INHALATION RT-BID@0800,1700 Calcium Carbonate [Tums] 500 mg PO Q8H PRN PRN Reason: Indigestion Bisacodyl [Dulcolax] 10 mg RECTAL DAILY PRN PRN Reason: Constipation Nitroglycerin Sl Tabs [Nitrostat] 0.4 mg SUBLINGUAL Q5M PRN #20 tab PRN Reason: Chest Pain Acetaminophen [Tylenol] 650 mg PO Q6H PRN PRN Reason: Pain Ferrous Sulfate [Feosol] 325 mg PO DAILY@1700 Folic Acid 1 mg PO DAILY@1700 Magnesium Oxide 400 mg PO DAILY@1700 Montelukast [Singulair] 10 mg PO DAILY@0800 Na Phos,M-B/Na Phos,Di-Ba [Fleet Adult] 133 ml RECTAL DAILY PRN PRN Reason: Constipation Potassium Chloride ER [K-Dur 20] 30 meq PO DAILY@0800 Sodium Chloride [Colleton] 1 spray EA NOSTRIL Q1H PRN PRN Reason: Congestion Magnesium Hydroxide [Milk of Magnesia Concentrate] 7,200 mg PO Q48H PRN PRN Reason: Constipation Lidocaine 2% Soultion 2 ml INTRAARTIC ONCE PRN PRN Reason: LEFT SHOULDER PAIN Kenalog-40 Suspension 1 ml INTRAARTIC ONCE PRN PRN Reason: LEFT SHOULDER PAIN Ipratropium-Albuterol Nebulize [Duoneb 0.5 mg-3 mg/3 ml Soln] 3 ml INHALATION RT-QID PRN PRN Reason: Shortness Of Breath Or Wheezing Insulin Lispro [humaLOG] See Protocol SQ ACHS rOPINIRole HCL [Requip] 0.5 mg PO TID@0600,1400,2100 Midodrine [ProAmatine] 5 mg PO TID@0700,1200,1700 Glucerna Shake 237 ml PO TID@0800,1200,1700 Diltiazem Oral [Cardizem*] 30 mg PO TID@0600,1400,2200 Divalproex [Depakote] 250 mg PO TID@0600,1400,2200 Saccharomyces Boulardii 250mg Capsule 1 cap PO BID@0800,1700 Furosemide [Lasix] 40 mg PO BID@0800,1700 PARoxetine [Paxil] 10 mg PO DAILY@0800 Omeprazole [PriLOSEC] 40 mg PO DAILY@0600 Metoprolol Succinate [[place]sp[place] Sprinkle] 25 mg PO DAILY@0800 Levothyroxine Sodium [Synthroid] 88 mcg PO DAILY@0600 Atorvastatin [Lipitor] 40 mg PO HS@2100 traMADol HCL 50 mg PO Q6H PRN PRN Reason: Moderate Pain Discharge Medication List Budesonide-Formot 160-4.5 Mcg [Symbicort 160-4.5 Mcg Inhaler] 2 puff INHALATION RT-BID@0800,1700 05/22/14 [History] Bisacodyl [Dulcolax] 10 mg RECTAL DAILY PRN 04/03/17 [History] Calcium Carbonate [Tums] 500 mg PO Q8H PRN 04/03/17 [History] Nitroglycerin Sl Tabs [Nitrostat] 0.4 mg SUBLINGUAL Q5M PRN #20 tab 04/05/17 [Rx] Acetaminophen [Tylenol] 650 mg PO Q6H PRN 10/20/18 [History] Ferrous Sulfate [Feosol] 325 mg PO DAILY@169910/20/18 [History] Folic Acid 1 mg PO DAILY@169910/20/18 [History] Magnesium Oxide 400 mg PO DAILY@169910/20/18 [History] Montelukast [Singulair] 10 mg PO DAILY@0810/20/18 [History] Na Phos,M-B/Na Phos,Di-Ba [Fleet Adult] 133 ml RECTAL DAILY PRN 10/20/18 [History] Potassium Chloride ER [K-Dur 20] 30 meq PO DAILY@0800 10/20/18 [History] Atorvastatin [Lipitor] 40 mg PO HS@2100 05/14/20 [History] Diltiazem Oral [Cardizem*] 30 mg PO TID@0600,1400,0 10/31/19 [History] Divalproex [Depakote] 250 mg PO TID@0600,1400,219910/31/19 [History] Furosemide [Lasix] 40 mg PO BID@0800,1700 10/31/19 [History] Glucerna Shake 237 ml PO TID@0800,1200,17010/31/19 [History] Insulin Lispro [humaLOG] See Protocol SQ ACHS 10/31/19 [History] Ipratropium-Albuterol Nebulize [Duoneb 0.5 mg-3 mg/3 ml Soln] 3 ml INHALATION RT-QID PRN 10/31/19 [History] Kenalog-40 Suspension 1 ml INTRAARTIC ONCE PRN 10/31/19 [History] Levothyroxine Sodium [Synthroid] 88 mcg PO DAILY@0610/31/19 [History] Lidocaine 2% Soultion 2 ml INTRAARTIC ONCE PRN 10/31/19 [History] Magnesium Hydroxide [Milk of Magnesia Concentrate] 7,200 mg PO Q48H PRN 10/31/19 [History] Metoprolol Succinate [Kapspargo Sprinkle] 25 mg PO DAILY@0810/31/19 [History] Midodrine [ProAmatine] 5 mg PO TID@0700,1200,1700 10/31/19 [History] Omeprazole [PriLOSEC] 40 mg PO DAILY@0610/31/19 [History] PARoxetine [Paxil] 10 mg PO DAILY@0810/31/19 [History] Saccharomyces Boulardii 250mg Capsule 1 cap PO BID@0800,1700 10/31/19 [History] Sodium Chloride [Colleton] 1 spray EA NOSTRIL Q1H PRN 10/31/19 [History] rOPINIRole HCL [Requip] 0.5 mg PO TID@0600,1400,2100 10/31/19 [History] traMADol HCL 50 mg PO Q6H PRN 10/31/19 [History] Midodrine [ProAmatine] 5 mg PO AC-TID #90 tab 11/03/19 [Rx] Follow up Appointment(s)/Referral(s): Sue Arellano MD [Primary Care Provider] - 1-2 days Discharge Disposition: HOME SELF-CARE
--- NOTE | 2019-11-03 16:30 | P.PN ---
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 History of lung cancer status post wedge resection Dizziness lightheadedness due to chronic hypotension exacerbated by hypovolemia Indices severe COPD without exacerbation Chronic kidney disease stage III Hypertension hypertensive cardiovascular disease History of colon cancer status post colon: Resection at the sigmoid colon level History of CVA peptic ulcer disease and chronic microcytic anemia and anemia 11/03/2019, patient seen eval reexamined during the last reviewed medications reviewed, shortness of breath has been stable, no more orthostasis is seen hemodynamic status stable, patient is being for discharge, agree with discharge planning 11/02/2019, patient seen eval examined during the rounds labs reviewed medications reviewed, patient has been doing well denies any chest pain cough or sputum production shortness of breath is present respiration and exertion patient is doing well on bronchodilator along with oxygen, hemodynamic status stable room air oxygen saturation is 95%, This is a 69-year-old patient with 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 patient is well-known to me for a history of lung cancer on the left side status post a resection followed by radiation therapy, patient has 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 difficile colitis in the past along with lung cancer on the left side which is being monitored by radiographic studies, patient also have severe degree of degenerative joint disease osteoarthritis Objective - Vital Signs Vital signs: Vital Signs Temp 98.4 F 11/03/19 15:20 Pulse 103 H 11/03/19 15:20 Resp 16 11/03/19 16:00 BP 158/79 11/03/19 15:20 Pulse Ox 94 L 11/03/19 15:20 Intake & Output 11/02/19 11/03/19 11/03/19 18:59 06:59 18:59 Intake Total 1200 250 410 Output Total 550 900 300 Balance 650 -650 110 Weight 61.1 kg Intake: IV 400 Sodium Chloride 0.9% 1, 400 000 ml @ 50 mls/hr IV . Q20H RADHA Rx#:[id number] Intake, IV Titration 200 Amount Magnesium Sulfate-D5w Pmx 200 1 gm In Dextrose/Water 1 100ml.bag @ 100 mls/hr IVPB Q1H RADHA Rx#: [id number] Oral 600 250 410 Output: Urine 550 900 300 Other: Voiding Method Urinal Urinal # Voids 2 1 # Bowel Movements 1 - Exam - Constitutional General appearance: average body habitus, cooperative, disheveled - EENT Eyes: PERRLA ENT: hard of hearing Ears: bilateral: normal - Neck Carotids: bilateral: upstroke normal - Respiratory Respiratory: bilateral: diminished - Cardiovascular Rhythm: regular Heart sounds: normal: S1, S2 - Gastrointestinal General gastrointestinal: normal bowel sounds, soft - Neurologic Neurologic: CNII-XII intact - Musculoskeletal Musculoskeletal: gait normal, generalized weakness, strength equal bilaterally - Psychiatric Psychiatric: A&O x's 3, appropriate affect, intact judgment & insight - Labs CBC & Chem 7: 11/01/19 05:39 11/03/19 06:53 Labs: Abnormal Lab Results - Last 24 Hours (Table) 11/03/19 Range/Units 06:53 Sodium 136 L (137-145) mmol/L BUN 40 H (9-20) mg/dL Creatinine 1.45 H (0.66-1.25) mg/dL Glucose 128 H (74-99) mg/dL Assessment and Plan Assessment: Orthostatic hypotension, resolved Chronic interstitial lung disease/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 History of lung cancer status post wedge resection Dizziness lightheadedness due to chronic hypotension exacerbated by hypovolemia Indices severe COPD without exacerbation Chronic kidney disease stage III Hypertension hypertensive cardiovascular disease History of colon cancer status post colon: Resection at the sigmoid colon level History of CVA peptic ulcer disease and chronic microcytic anemia and anemia Plan: Continue bronchodilators Continue supplemental oxygen Fluid resuscitation however patient is has borderline heart function avoid fluid overload Monitor and observe patient off of steroids and antibiotics Medication adjustment Further plan of care and recommendation as per clinical response of patient Agree with discharge planning follow-up she Time with Patient: Greater than 30
[2019-11-03] MEDS: FOLIC ACID 1 MG TAB PO SCH (17:09)
[2019-11-03] MEDS: ATORVASTATIN 40 MG TAB PO SCH (19:57)
[2019-11-04] MEDS: DILTIAZEM ORAL 30 MG TAB PO SCH ×2 (05:25→12:17)
[2019-11-04] MEDS: PANTOPRAZOLE 40 MG TABLET PO SCH (05:25)
[2019-11-04] MEDS: MIDODRINE 5 MG TAB PO SCH ×2 (05:25→12:17)
[2019-11-04] MEDS: DIVALPROEX 250 MG TABLET.DR PO SCH ×2 (05:25→12:18)
[2019-11-04] MEDS: LEVOTHYROXINE 88 MCG TAB PO SCH (05:25)
[2019-11-04] MEDS: SYMBICORT 160-4.5 MCG INHALER INHALATION SCH (07:49)
[2019-11-04 09:00] VITALS: PULSE 90; TEMP 97.6
[2019-11-04] MEDS: MONTELUKAST 10 MG TAB PO SCH (09:02)
[2019-11-04] MEDS: HEPARIN SODIUM,PORCINE 5,000 UNIT/ML 1 ML VIAL SQ SCH (09:02)
[2019-11-04] MEDS: METOPROLOL SUCCINATE (ER) 25 MG TAB.ER.24H PO SCH (09:02)
[2019-11-04] MEDS: POTASSIUM CHLORIDE ER 10 MEQ TAB.ER.PRT PO SCH (09:03)
[2019-11-04 11:26] VITALS: BP 131/63; RESP 18
--- NOTE | 2019-11-04 13:03 | P.PN ---
Subjective Progress Note Date: 11/04/19 This is a 69-year-old gentleman presenting to the hospital initially with symptoms of near syncope, he was found to have symptomatic orthostatic hypotension. Patient has a known history of chronic diastolic heart failure, chronic persistent atrial fibrillation, not on anticoagulation secondary to GI bleed, COPD with home O2, interstitial lung disease. He was seen and examined this morning, his blood pressure overall is stable at 126/70 today. Objective - Vital Signs Vital signs: Vital Signs Temp 97.6 F 11/04/19 08:05 Pulse 90 11/04/19 11:26 Resp 18 11/04/19 11:26 BP 131/63 11/04/19 11:26 Pulse Ox 93 L 11/04/19 11:26 Intake & Output 11/03/19 11/04/19 11/04/19 18:59 06:59 18:59 Intake Total 890 480 Output Total 500 400 150 Balance 390 -400 330 Weight 63.1 kg Intake: Oral 890 480 Output: Urine 500 400 150 Other: Voiding Method Urinal Urinal # Voids 1 2 # Bowel Movements 1 - Exam Physical examination: Gen: This is a 69-year-old male. Patient is resting in bed and appears to be comfortable. VS: Afebrile, heart rate 95, blood pressure 119/66, pulse ox 95% on room air. HEENT: Head is atraumatic, normocephalic. Pupils equal, round. Sclerae is anicteric. NECK: Supple. No JVD. No lymphadenopathy. No thyromegaly. LUNGS: Clear to auscultation. No wheezes or rhonchi. No intercostal retractions. HEART: Regular rate and rhythm. No murmur. ABDOMEN: Soft. Bowel sounds are present. No masses. No tenderness. EXTREMITIES: No pedal edema. No calf tenderness. NEUROLOGICAL: Patient is awake, alert and oriented x3. Cranial nerves 2 through 12 are grossly intact. - Labs CBC & Chem 7: 11/01/19 05:39 11/03/19 06:53 Assessment and Plan Plan: Assessment and plan: #1 Orthostatic hypotension #2 Electrolyte abnormalities with hypokalemia, hypomagnesemia #3 Chronic diastolic heart failure #4 Chronic persistent atrial fibrillation not on anticoagulation secondary to GI bleed #5 COPD Plan From cardiology's perspective, patient may be able to be discharged home we will make him a follow-up appointment in the office post discharge. DNP note has been reviewed, I agree with a documented findings and plan of care. Patient was seen and examined.
--- NOTE | 2019-11-06 22:41 | CDI ---
Documentation Clarification Form Date: 11/07/2019 From: Romeo Mcallister Phone: If you have a question about this query, please contact Elin Pantoja, Admitting Representative at [phone] between 8am and 5pm. Admit Date: 10/31/2019 Discharge Date: 11/04/2019 Patient Name: Parag Davila Visit Number: [id number] ATTENTION: The Clinical Documentation Specialists (CDI) and [facility] Coding Staff appreciate your assistance in clarifying documentation. Please respond to the clarification below the line at the bottom and electronically sign. The CDI & [facility] Coding staff will review the response and follow-up if needed. Please note: Queries are made part of the Legal Health Record. If you have any questions, please contact the author of this message via ITS. Dear Gely Kelly., The patients principal diagnosis has not been clearly identified and requires clarification. He presented with the Dizziness and near syncope secondary to orthostatic hypotension with volume depletion, Chronic orthostatic hypotension. History/Risk factors: Hypotension, HTN,CKD, Atrial Fibrillation. Radiology findings: Chronic emphysematous and parenchymal fibrotic changes with new left greater than right bilateral acute infiltrates in the upper lungs. Vital Signs:10/31/19 17:50 101 H 16 134/67 10/31/19 15:15 87 18 138/80 Treatment: BP meds adjusted.,Fluid resuscitation. Consults: Dr. Rico Nazario, Dr. Hiren Hanks. 10/31 Dr. Hiren Hanks consult note stated as "Orthostatic hypotension, probably secondary to intravascular volume depletion". 11/02 progress note stated as "Dizziness lightheadedness due to chronic hypotension exacerbated by hypovolemia" In your professional opinion, can you please clarify which diagnosis, after study, accounted for the patients presenting symptoms and was the reason chiefly responsible for the admission? Orthostatic Hypotension Orthostatic hypotension due to Volume depletion. Other, Please Speecify Orthostatic hypotension due to Volume depletion. MTDD
--- NOTE | 2019-11-12 22:50 | P.DS ---
Providers Date of admission: 10/31/19 15:18 Expected date of discharge: 11/04/19 Attending physician: Nitza Irwin Consults: 10/31/19 15:22 Consult Physician Urgent Consulting Provider: [facility] Consult Reason/Comments: orthostatic hypotension Do you want consulting provider notified?: Yes 10/31/19 23:02 Consult Physician Routine Consulting Provider: Rico Nazario Consult Reason/Comments: new interstitial infiltrates Do you want consulting provider notified?: Yes, Notify in am Primary care physician: [facility] Course: Discharge diagnosis Dizziness and near syncope secondary to orthostatic hypotension with volume depletion Chronic orthostatic hypotension. On midodrine new left greater than right bilateral acute infiltrates in the upper lungs. possible Pneumonia Hypokalemia . replaced. Acute kidney injury with significant elevated BUN and creatinine 1.68. Creatinine baseline 1.5 Elevated BUN without evidence of acute CHF. 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 stable present study Seizure disorder History of CVA History of peptic ulcer disease Macrocytic anemia with hemoglobin 9.2 Chronic low back pain Previous history of smoking DVT prophylaxis with heparin subcu Hospital course 69-year-old male with a known history of chronic CHF with diastolic dysfunction, chronic atrial fibrillation not on any anticoagulation due to history of GI bleed, Orthostatic hypotension currently on midodrine 5 mg 3 times daily, chronic hypoxic respiratory failure on 3 L oxygen, chronic interstitial lung changes and history of lung cancer and CKD stage III with baseline creatinine around 1.5 and other multiple medical problems was sent to hospital from [facility] due to hypotension and feeling of passed out. Patient has been having on and off symptoms for the past 1 week. Denied any loss of consciousness. Patient had multiple blood pressure medications including Lasix 40 mg daily along with Zaroxolyn. Even after adjusting blood pressure medications patient still having nears syncopal episodes. Patient was sent to hospital for evaluation. Patient has been becoming more symptomatic and could not ambulate without symptoms of passing out. Laboratory data showed WBC 10.6, hemoglobin 9.2, MCV 100.4 and platelets 320 Sodium 137, potassium 3.0, BUN 79 and creatinine 1.68 Troponin 0 0.015 BNP 5760 TSH 1.47 and cortisol 13 both within normal limits Liver enzymes are not elevated. Chest x-ray showed chronic emphysematous and parenchymal fibrotic changes with the new left greater than right bilateral acute infiltrates in the upper lungs. EKG showed atrial fibrillation with ventricular rate 90 Patient is tachycardic. Afebrile.. Patient is orthostatic positive. Repeat COVID-19 was ordered which was negative. Patient had negative COVID-19 test last month. Patient was continued on telemetry monitoring. Patient is currently on Lasix and spironolactone as well as metolazone at home due to chronic CHF with diastolic dysfunction. Diuretics are on hold while in the hospital. Patient was continued on metoprolol and Cardizem for heart rate control. Heart rate is currently better controlled and patient's symptomatically improved. No complaints of dizziness with getting up at this time. Cardiology has seen the patient. Patient also will be continued low-dose Lasix at this time. Patient does have history of multiple admissions due to acute CHF due to diastolic function. Hemoglobin is fairly stable. Patient is being discharged back to extended care facility today. Objective - Vital Signs Vital signs: Vital Signs Temp 97.6 F 11/04/19 08:05 Pulse 90 11/04/19 11:26 Resp 18 11/04/19 11:26 BP 131/63 11/04/19 11:26 Pulse Ox 93 L 11/04/19 11:26 Intake & Output 11/03/19 11/04/19 11/04/19 18:59 06:59 18:59 Intake Total 890 480 Output Total 500 400 150 Balance 390 -400 330 Weight 63.1 kg Intake: Oral 890 480 Output: Urine 500 400 150 Other: Voiding Method Urinal Urinal # Voids 1 2 # Bowel Movements 1 - Exam Physical examination: Gen: This is a 69-year-old male. Patient is resting in bed and appears to be comfortable. VS: Afebrile, heart rate 95, blood pressure 119/66, pulse ox 95% on room air. HEENT: Head is atraumatic, normocephalic. Pupils equal, round. Sclerae is anicteric. NECK: Supple. No JVD. No lymphadenopathy. No thyromegaly. LUNGS: Clear to auscultation. No wheezes or rhonchi. No intercostal retractions. HEART: Regular rate and rhythm. No murmur. ABDOMEN: Soft. Bowel sounds are present. No masses. No tenderness. EXTREMITIES: No pedal edema. No calf tenderness. NEUROLOGICAL: Patient is awake, alert and oriented x3. Cranial nerves 2 through 12 are grossly intact. Time taken greater than 35 minutes in which more than half of the time was spent on counseling and coordination of care. Patient Condition at Discharge: Fair Plan - Discharge Summary Discharge Rx Participant: Yes New Discharge Prescriptions: Continue RX: Budesonide-Formot 160-4.5 Mcg [Symbicort 160-4.5 Mcg Inhaler] 2 puff INHALATION RT-BID@0800,1700 RX: Calcium Carbonate [Tums] 500 mg PO Q8H PRN PRN Reason: Indigestion RX: Bisacodyl [Dulcolax] 10 mg RECTAL DAILY PRN PRN Reason: Constipation RX: Nitroglycerin Sl Tabs [Nitrostat] 0.4 mg SUBLINGUAL Q5M PRN #20 tab PRN Reason: Chest Pain RX: Acetaminophen [Tylenol] 650 mg PO Q6H PRN PRN Reason: Pain RX: Ferrous Sulfate [Feosol] 325 mg PO DAILY@1700 RX: Folic Acid 1 mg PO DAILY@1700 RX: Magnesium Oxide 400 mg PO DAILY@1700 RX: Montelukast [Singulair] 10 mg PO DAILY@0800 RX: Na Phos,M-B/Na Phos,Di-Ba [Fleet Adult] 133 ml RECTAL DAILY PRN PRN Reason: Constipation RX: Potassium Chloride ER [K-Dur 20] 30 meq PO DAILY@0800 RX: Sodium Chloride [[place]] 1 spray EA NOSTRIL Q1H PRN PRN Reason: Congestion RX: Magnesium Hydroxide [Milk of Magnesia Concentrate] 7,200 mg PO Q48H PRN PRN Reason: Constipation Lidocaine 2% Soultion 2 ml INTRAARTIC ONCE PRN PRN Reason: LEFT SHOULDER PAIN Kenalog-40 Suspension 1 ml INTRAARTIC ONCE PRN PRN Reason: LEFT SHOULDER PAIN RX: Ipratropium-Albuterol Nebulize [Duoneb 0.5 mg-3 mg/3 ml Soln] 3 ml INHALATION RT-QID PRN PRN Reason: Shortness Of Breath Or Wheezing RX: Insulin Lispro [humaLOG] See Protocol SQ ACHS RX: rOPINIRole HCL [Requip] 0.5 mg PO TID@0600,1400,2100 RX: Midodrine [ProAmatine] 5 mg PO TID@0700,1200,1700 RX: Diltiazem Oral [Cardizem*] 30 mg PO TID@0600,1400,2200 RX: Divalproex [Depakote] 250 mg PO TID@0600,1400,2200 Saccharomyces Boulardii 250mg Capsule 1 cap PO BID@0800,1700 RX: PARoxetine [Paxil] 10 mg PO DAILY@0800 RX: Omeprazole [PriLOSEC] 40 mg PO DAILY@0600 RX: Levothyroxine Sodium [Synthroid] 88 mcg PO DAILY@0600 RX: Atorvastatin [Lipitor] 40 mg PO HS@2100 Discontinued RX: Furosemide [Lasix] 40 mg PO BID@0800,1700 No Action RX: Metoprolol Succinate [Toprol XL] 25 mg PO DAILY@0800 RX: Furosemide [Lasix] 20 mg PO BID@0900,1600 tab RX: Nystatin 100,000 Unit/ml Susp [Mycostatin Oral Susp] 500,000 unit PO QID #100 ml RX: traMADol HCL 50 mg PO Q6H PRN #12 tab PRN Reason: Moderate Pain Discharge Medication List RX: Budesonide-Formot 160-4.5 Mcg [Symbicort 160-4.5 Mcg Inhaler] 2 puff INHALATION RT-BID@0800,1700 05/22/14 [History] RX: Bisacodyl [Dulcolax] 10 mg RECTAL DAILY PRN 04/03/17 [History] RX: Calcium Carbonate [Tums] 500 mg PO Q8H PRN 04/03/17 [History] RX: Nitroglycerin Sl Tabs [Nitrostat] 0.4 mg SUBLINGUAL Q5M PRN #20 tab 04/05/17 [Rx] RX: Acetaminophen [Tylenol] 650 mg PO Q6H PRN 10/20/18 [History] RX: Ferrous Sulfate [Feosol] 325 mg PO DAILY@17010/20/18 [History] RX: Folic Acid 1 mg PO DAILY@169910/20/18 [History] RX: Magnesium Oxide 400 mg PO DAILY@170 10/20/18 [History] RX: Montelukast [Singulair] 10 mg PO DAILY@0800 10/20/18 [History] RX: Na Phos,M-B/Na Phos,Di-Ba [Fleet Adult] 133 ml RECTAL DAILY PRN 10/20/18 [History] RX: Potassium Chloride ER [K-Dur 20] 30 meq PO DAILY@0800 10/20/18 [History] Kenalog-40 Suspension 1 ml INTRAARTIC ONCE PRN 10/31/19 [History] Lidocaine 2% Soultion 2 ml INTRAARTIC ONCE PRN 10/31/19 [History] RX: Atorvastatin [Lipitor] 40 mg PO HS@209910/31/19 [History] RX: Diltiazem Oral [Cardizem*] 30 mg PO TID@0600,1400,219910/31/19 [History] RX: Divalproex [Depakote] 250 mg PO TID@0600,1400,219910/31/19 [History] RX: Insulin Lispro [humaLOG] See Protocol SQ ACHS 10/31/19 [History] RX: Ipratropium-Albuterol Nebulize [Duoneb 0.5 mg-3 mg/3 ml Soln] 3 ml INHALATION RT-QID PRN 10/31/19 [History] RX: Levothyroxine Sodium [Synthroid] 88 mcg PO DAILY@0600 10/31/19 [History] RX: Magnesium Hydroxide [Milk of Magnesia Concentrate] 7,200 mg PO Q48H PRN 10/31/19 [History] RX: Midodrine [ProAmatine] 5 mg PO TID@0700,1200,1700 10/31/19 [History] RX: Omeprazole [PriLOSEC] 40 mg PO DAILY@0600 10/31/19 [History] RX: PARoxetine [Paxil] 10 mg PO DAILY@0800 10/31/19 [History] RX: Sodium Chloride [[place]] 1 spray EA NOSTRIL Q1H PRN 10/31/19 [History] RX: rOPINIRole HCL [Requip] 0.5 mg PO TID@0600,1400,2100 10/31/19 [History] Saccharomyces Boulardii 250mg Capsule 1 cap PO BID@0800,1700 10/31/19 [History] RX: Metoprolol Succinate [Toprol XL] 25 mg PO DAILY@0800 11/07/19 [History] RX: Furosemide [Lasix] 20 mg PO BID@0900,1600 tab 11/09/19 [Rx] RX: Nystatin 100,000 Unit/ml Susp [Mycostatin Oral Susp] 500,000 unit PO QID #100 ml 11/09/19 [Rx] RX: traMADol HCL 50 mg PO Q6H PRN #12 tab 11/09/19 [Rx] Follow up Appointment(s)/Referral(s): Sue Arellano MD [Primary Care Provider] - 1-2 days Patient Instructions/Handouts: Syncope (DC) Discharge Disposition: TRANSFER TO SNF/ECF
== END 2019-11-04 13:08 | DRG 312 ==
LOC: EC 14:07 → 3SCARD 15:18 → 2SICU 17:46 → 3SCARD 11-01 17:10
PROVIDERS: ADMIT Internal Medicine; ATTEND Internal Medicine
DX: I95.1 Orthostatic hypotension (principal); I50.32 Chronic diastolic (congestive) heart failure; I13.0 Hypertensive heart and chronic kidney disease with heart failure and stage 1 through stage 4 chronic kidney disease, or unspecified chronic kidney disease; N17.9 Acute kidney failure, unspecified; J96.11 Chronic respiratory failure with hypoxia; I48.21 Permanent atrial fibrillation; E86.1 Hypovolemia; I25.10 Atherosclerotic heart disease of native coronary artery without angina pectoris; G89.29 Other chronic pain; E87.6 Hypokalemia; E83.42 Hypomagnesemia; D53.9 Nutritional anemia, unspecified; E03.9 Hypothyroidism, unspecified; E78.5 Hyperlipidemia, unspecified; J44.9 Chronic obstructive pulmonary disease, unspecified; Z20.828 Contact with and (suspected) exposure to other viral communicable diseases; N18.3 Chronic kidney disease, stage 3 (moderate); M19.90 Unspecified osteoarthritis, unspecified site; G40.909 Epilepsy, unspecified, not intractable, without status epilepticus; J84.10 Pulmonary fibrosis, unspecified; K21.9 Gastro-esophageal reflux disease without esophagitis; Y84.2 Radiological procedure and radiotherapy as the cause of abnormal reaction of the patient, or of later complication, without mention of misadventure at the time of the procedure; Z87.11 Personal history of peptic ulcer disease; Z99.81 Dependence on supplemental oxygen; Z90.49 Acquired absence of other specified parts of digestive tract; I25.2 Old myocardial infarction; Z87.891 Personal history of nicotine dependence; Z87.442 Personal history of urinary calculi; Z86.73 Personal history of transient ischemic attack (TIA), and cerebral infarction without residual deficits; Z85.118 Personal history of other malignant neoplasm of bronchus and lung; Z85.038 Personal history of other malignant neoplasm of large intestine; Z79.899 Other long term (current) drug therapy; Z79.890 Hormone replacement therapy; Z79.51 Long term (current) use of inhaled steroids; Z88.7 Allergy status to serum and vaccine; Z88.8 Allergy status to other drugs, medicaments and biological substances; Z98.890 Other specified postprocedural states; Z98.42 Cataract extraction status, left eye; Z98.41 Cataract extraction status, right eye; Z80.9 Family history of malignant neoplasm, unspecified
CPT/HCPCS: 36415; 71046; 80048; 80053; 82533; 83735; 83880; 84132; 84443; 84450; 84460; 84484; 85025; 85610; 85730; 87635; 93005; 94640; 99285

== ENCOUNTER 2019-11-07 16:27 | Inpatient (IN) | payer MEDICARE, OTHER ==
--- NOTE | 2019-11-07 17:32 | ED ---
SOB HPI - General Chief Complaint: Shortness of Breath Stated Complaint: Anemia Time Seen by Provider: 11/07/19 16:28 Source: patient, EMS Mode of arrival: ambulatory Limitations: no limitations - History of Present Illness Initial Comments: 69-year-old male patient presents to the emergency department today for evaluation of shortness of breath. Patient states that he has been feeling short of breath since this morning. States he does have a cough and is coughing up sputum. States occasionally it is blood-tinged. Patient denies any fever or chills with this. Denies chest pain, abdominal pain, nausea, or vomiting. Denies any constipation or diarrhea. Patient does have a history of anemia, recent hemoglobin yesterday was 7.6. States he is unsure what the source of bleeding is. Denies any swelling to his extremities. He is at [facility]. Patient denies any recent rash, back pain, numbness, tingling, dizziness, weakness, hematuria, dysuria, urinary urgency, urinary frequency, headache, visual changes, or any other complaints. - Related Data Home Medications Medication Instructions Recorded Confirmed Budesonide-Formot 160-4.5 Mcg 2 puff INHALATION RT-BID@0800,1700 05/22/14 10/31/19 [Symbicort 160-4.5 Mcg Inhaler] Bisacodyl [Dulcolax] 10 mg RECTAL DAILY PRN 04/03/17 10/31/19 Calcium Carbonate [Tums] 500 mg PO Q8H PRN 04/03/17 10/31/19 Acetaminophen [Tylenol] 650 mg PO Q6H PRN 10/20/18 10/31/19 Ferrous Sulfate [Feosol] 325 mg PO DAILY@169910/20/18 10/31/19 Folic Acid 1 mg PO DAILY@169910/20/18 10/31/19 Magnesium Oxide 400 mg PO DAILY@169910/20/18 10/31/19 Montelukast [Singulair] 10 mg PO DAILY@0800 10/20/18 10/31/19 Na Phos,M-B/Na Phos,Di-Ba [Fleet 133 ml RECTAL DAILY PRN 10/20/18 10/31/19 Adult] Potassium Chloride ER [K-Dur 20] 30 meq PO DAILY@0800 10/20/18 10/31/19 Atorvastatin [Lipitor] 40 mg PO HS@2100 10/31/19 10/31/19 Diltiazem Oral [Cardizem*] 30 mg PO TID@0600,1400,219910/31/19 10/31/19 Divalproex [Depakote] 250 mg PO TID@0600,1400,219910/31/19 10/31/19 Glucerna Shake 237 ml PO TID@0800,1200,17010/31/19 10/31/19 Insulin Lispro [humaLOG] See Protocol SQ ACHS 10/31/19 10/31/19 Ipratropium-Albuterol Nebulize 3 ml INHALATION RT-QID PRN 10/31/19 10/31/19 [Duoneb 0.5 mg-3 mg/3 ml Soln] Kenalog-40 Suspension 1 ml INTRAARTIC ONCE PRN 10/31/19 10/31/19 Levothyroxine Sodium [Synthroid] 88 mcg PO DAILY@59910/31/19 10/31/19 Lidocaine 2% Soultion 2 ml INTRAARTIC ONCE PRN 10/31/19 10/31/19 Magnesium Hydroxide [Milk of 7,200 mg PO Q48H PRN 10/31/19 10/31/19 Magnesia Concentrate] Metoprolol Succinate [Kapspargo 25 mg PO DAILY@0810/31/19 10/31/19 Sprinkle] Midodrine [ProAmatine] 5 mg PO TID@0700,1200,1700 10/31/19 10/31/19 Omeprazole [PriLOSEC] 40 mg PO DAILY@0600 10/31/19 10/31/19 PARoxetine [Paxil] 10 mg PO DAILY@0810/31/19 10/31/19 Saccharomyces Boulardii 250mg 1 cap PO BID@0800,1700 10/31/19 10/31/19 Capsule Sodium Chloride [Cottle] 1 spray EA NOSTRIL Q1H PRN 10/31/19 10/31/19 rOPINIRole HCL [Requip] 0.5 mg PO TID@0600,1400,2100 10/31/19 10/31/19 traMADol HCL 50 mg PO Q6H PRN 10/31/19 10/31/19 Previous Rx's Medication Instructions Recorded Nitroglycerin Sl Tabs [Nitrostat] 0.4 mg SUBLINGUAL Q5M PRN #20 tab 04/05/17 Midodrine [ProAmatine] 5 mg PO AC-TID #90 tab 11/03/19 Furosemide [Lasix] 20 mg PO DAILY #30 tab 11/04/19 Allergies Allergy/AdvReac Type Severity Reaction Status Date / Time phenobarbital Allergy Unknown Hallucinati Verified 11/07/19 19:20 ons Influenza Virus Vaccines Allergy Unknown Verified 11/07/19 19:20 Review of Systems ROS Statement: Those systems with pertinent positive or pertinent negative responses have been documented in the HPI. ROS Other: All systems not noted in ROS Statement are negative. Past Medical History Past Medical History: Atrial Fibrillation, Cancer, Chest Pain / Angina, COPD, CVA/TIA, GERD/Reflux, GI Bleed, Hyperlipidemia, Hypertension, Myocardial Infarction ([place]), Musculoskeletal Disorder, Renal Disease, Seizure Disorder Additional Past Medical History / Comment(s): colonoscopy then laparoscopic sigmoid colectomy for adenocarcinoma was performed on 07/19/14. Other HX: colon cancer found during colonoscopy-polyp which was adenocarcinoma, SQUAMOUS CELL CARCINOMA LT UPPER LOBE. ULCER; EPILEPTIC - STATES LAST SEIZURE PREV TO 1994; CVA - AFFECTS SPEECH/able to print but not write in cursive. UNABLE TO COMPLETELY CLOSE LEFT HAND R/T hx of LARGE LACERATION. HX OF RT HIP DISORDER, WORE CAST, THEN BRACE FOR 2 YRS, chronic low back pain, renal cysts and kidney stones, GI bleed associated with anticoaulation. Has home O2 which he uses when necessary Last Myocardial Infarction Date:: patient reports 19 years ago History of Any Multi-Drug Resistant Organisms: None Reported, C-DIFF Date of last positivie culture/infection: 10/23/18 MDRO Source:: stool Past Surgical History: Orthopedic Surgery Additional Past Surgical History / Comment(s): 07/19/14 Laparoscopic sigmoid colectomy. LEFT HAND SX, EXC VILMA CATARACTS; COLONOSCOPY 05/26/14.BRONCH/BX- PNUEMOTHORAX/CHEST TUBE /WEDGE RESECTION TUMOR LT UPPER LOBE. Past Anesthesia/Blood Transfusion Reactions: No Reported Reaction Past Psychological History: No Psychological Hx Reported Smoking Status: Former smoker Past Alcohol Use History: None Reported Past Drug Use History: None Reported - Past Family History Father Family Medical History: CVA/TIA Mother Family Medical History: Cancer General Exam Limitations: no limitations General appearance: alert, in no apparent distress, other (Physical well- developed, well-nourished adult male patient in no acute distress. Vital signs upon presentation are temperature 98.8F, pulse 89, respirations 22, blood pressure 124/62, pulse ox 86% on room air. ) ENT exam: Present: normal exam, normal oropharynx, mucous membranes moist Respiratory exam: Present: normal lung sounds bilaterally, other (Tachypnea). Absent: respiratory distress, wheezes, rales, rhonchi, stridor Cardiovascular Exam: Present: regular rate, normal rhythm, normal heart sounds. Absent: systolic murmur, diastolic murmur, rubs, gallop, clicks GI/Abdominal exam: Present: soft, normal bowel sounds. Absent: distended, tenderness, guarding, rebound, rigid Neurological exam: Present: alert, oriented X3, CN II-XII intact Psychiatric exam: Present: normal affect, normal mood Skin exam: Present: warm, dry, intact, normal color. Absent: rash Course Vital Signs 11/07/19 11/07/19 11/07/19 16:29 17:33 18:57 Temperature 98.8 F 98.5 F Pulse Rate 89 100 97 Respiratory 22 20 18 Rate Blood Pressure 124/62 101/64 125/71 O2 Sat by Pulse 86 L 98 90 L Oximetry 11/07/19 19:07 Temperature 98.3 F Pulse Rate 98 Respiratory 20 Rate Blood Pressure 127/78 O2 Sat by Pulse 92 L Oximetry Medical Decision Making - Medical Decision Making 69-year-old male patient presents to the emergency department today for evaluation of dyspnea and weakness. Physical examination reveals clear equal lung sounds. Oxygen saturation upon arrivals 84% on room air. Labs reviewed and did reveal a hemoglobin of 6.5 which is decreased from 7.3 yesterday. Platelet count is 114. INR is 1.3. BUN 42, creatinine 1.63. Lactic acid 3.5. Liver enzymes are mildly elevated. Occult blood was negative. Patient does have a history of anemia. We will administer 2 units for symptomatic anemia. He'll be admitted to the hospital for further evaluation. - Lab Data Result diagrams: 11/07/19 17:30 11/07/19 18:05 Lab Results 11/07/19 11/07/19 11/07/19 Range/Units 17:25 17:30 17:30 WBC 7.7 (3.8-10.6) k/uL RBC 2.01 L (4.30-5.90) m/uL Hgb 6.5 L* (13.0-17.5) gm/dL Hct 21.1 L (39.0-53.0) % MCV 105.0 H (80.0-100.0) fL MCH 32.4 (25.0-35.0) pg MCHC 30.9 L (31.0-37.0) g/dL RDW 22.5 H (11.5-15.5) % Plt Count 114 L (150-450) k/uL Neutrophils % 80 % Lymphocytes % 10 % Monocytes % 7 % Eosinophils % 0 % Basophils % 0 % Neutrophils # 6.2 (1.3-7.7) k/uL Lymphocytes # 0.8 L (1.0-4.8) k/uL Monocytes # 0.5 (0-1.0) k/uL Eosinophils # 0.0 (0-0.7) k/uL Basophils # 0.0 (0-0.2) k/uL Hypochromasia Moderate Poikilocytosis Slight Anisocytosis Moderate Macrocytosis Marked A PT 12.9 H (9.0-12.0) sec INR 1.3 H (<1.2) APTT 25.9 (22.0-30.0) sec Sodium (137-145) mmol/L Potassium (3.5-5.1) mmol/L Chloride (98-107) mmol/L Carbon Dioxide (22-30) mmol/L Anion Gap mmol/L BUN (9-20) mg/dL Creatinine (0.66-1.25) mg/dL Est GFR (CKD-EPI)AfAm (>60 ml/min/1.73 sqM) Est GFR (CKD-EPI)NonAf (>60 ml/min/1.73 sqM) Glucose (74-99) mg/dL Plasma Lactic Acid Jhonny (0.7-2.0) mmol/L Calcium (8.4-10.2) mg/dL Magnesium (1.6-2.3) mg/dL Total Bilirubin (0.2-1.3) mg/dL AST (17-59) U/L ALT (4-49) U/L Alkaline Phosphatase (38-126) U/L Troponin I (0.000-0.034) ng/mL Total Protein (6.3-8.2) g/dL Albumin (3.5-5.0) g/dL Stool Occult Blood Negative (Negative) Blood Type Blood Type Recheck Bld Type Recheck Status Antibody Screen Crossmatch Spec Expiration Date 11/07/19 11/07/19 11/07/19 Range/Units 17:30 17:30 17:30 WBC (3.8-10.6) k/uL RBC (4.30-5.90) m/uL Hgb (13.0-17.5) gm/dL Hct (39.0-53.0) % MCV (80.0-100.0) fL MCH (25.0-35.0) pg MCHC (31.0-37.0) g/dL RDW (11.5-15.5) % Plt Count (150-450) k/uL Neutrophils % % Lymphocytes % % Monocytes % % Eosinophils % % Basophils % % Neutrophils # (1.3-7.7) k/uL Lymphocytes # (1.0-4.8) k/uL Monocytes # (0-1.0) k/uL Eosinophils # (0-0.7) k/uL Basophils # (0-0.2) k/uL Hypochromasia Poikilocytosis Anisocytosis Macrocytosis PT (9.0-12.0) sec INR (<1.2) APTT (22.0-30.0) sec Sodium (137-145) mmol/L Potassium (3.5-5.1) mmol/L Chloride (98-107) mmol/L Carbon Dioxide (22-30) mmol/L Anion Gap mmol/L BUN (9-20) mg/dL Creatinine (0.66-1.25) mg/dL Est GFR (CKD-EPI)AfAm (>60 ml/min/1.73 sqM) Est GFR (CKD-EPI)NonAf (>60 ml/min/1.73 sqM) Glucose (74-99) mg/dL Plasma Lactic Acid Jhonny 3.5 H* (0.7-2.0) mmol/L Calcium (8.4-10.2) mg/dL Magnesium (1.6-2.3) mg/dL Total Bilirubin (0.2-1.3) mg/dL AST (17-59) U/L ALT (4-49) U/L Alkaline Phosphatase (38-126) U/L Troponin I <0.012 (0.000-0.034) ng/mL Total Protein (6.3-8.2) g/dL Albumin (3.5-5.0) g/dL Stool Occult Blood (Negative) Blood Type O Positive Blood Type Recheck O Pos Bld Type Recheck Status No Antibody Screen NEGATIVE Crossmatch See Detail Spec Expiration Date 11/10/2019 - 232911/07/19 Range/Units 18:05 WBC (3.8-10.6) k/uL RBC (4.30-5.90) m/uL Hgb (13.0-17.5) gm/dL Hct (39.0-53.0) % MCV (80.0-100.0) fL MCH (25.0-35.0) pg MCHC (31.0-37.0) g/dL RDW (11.5-15.5) % Plt Count (150-450) k/uL Neutrophils % % Lymphocytes % % Monocytes % % Eosinophils % % Basophils % % Neutrophils # (1.3-7.7) k/uL Lymphocytes # (1.0-4.8) k/uL Monocytes # (0-1.0) k/uL Eosinophils # (0-0.7) k/uL Basophils # (0-0.2) k/uL Hypochromasia Poikilocytosis Anisocytosis Macrocytosis PT (9.0-12.0) sec INR (<1.2) APTT (22.0-30.0) sec Sodium 139 (137-145) mmol/L Potassium 4.8 (3.5-5.1) mmol/L Chloride 105 (98-107) mmol/L Carbon Dioxide 19 L (22-30) mmol/L Anion Gap 15 mmol/L BUN 42 H (9-20) mg/dL Creatinine 1.63 H (0.66-1.25) mg/dL Est GFR (CKD-EPI)AfAm 48 (>60 ml/min/1.73 sqM) Est GFR (CKD-EPI)NonAf 42 (>60 ml/min/1.73 sqM) Glucose 93 (74-99) mg/dL Plasma Lactic Acid Jhonny (0.7-2.0) mmol/L Calcium 8.2 L (8.4-10.2) mg/dL Magnesium 1.2 L (1.6-2.3) mg/dL Total Bilirubin 1.2 (0.2-1.3) mg/dL AST 289 H (17-59) U/L ALT 146 H (4-49) U/L Alkaline Phosphatase 57 (38-126) U/L Troponin I (0.000-0.034) ng/mL Total Protein 5.9 L (6.3-8.2) g/dL Albumin 3.3 L (3.5-5.0) g/dL Stool Occult Blood (Negative) Blood Type Blood Type Recheck Bld Type Recheck Status Antibody Screen Crossmatch Spec Expiration Date - EKG Data -: EKG Interpreted by [facility] EKG Comments: EKG obtained at 1635 shows atrial fibrillation with a rate of 86, QRS duration 72, QT 224, QTC 268. No evidence of ST elevation or depression. - Radiology Data Radiology results: report reviewed, image reviewed Two-view x-ray of the chest is obtained. Report was reviewed in its entirety. Impression by Dr. Kim Berger shows interval worsening of the lung inflation pattern. Increasing bilateral lung parenchymal consolidative infiltrates and possible mild interstitial face pulmonary edema. Disposition Clinical Impression: Symptomatic anemia Disposition: ADMITTED IP TO THIS [facility] Condition: Serious Referrals: Sue Arellano MD [Primary Care Provider] - 1-2 days Decision to Admit Reason: Admit from EC Decision Date: 11/07/19 Decision Time: 19:24
[2019-11-07 17:48] LABS: Anisocytosis Moderate; Basophils % (A) 0 %; Eosinophils % (A) 0 %; HCT 21.1 % (39.0-53.0); Hypochromasia Moderate; Lymphocytes # (A) 0.8 k/uL (1.0-4.8); Lymphocytes % (A) 10 %; MCH 32.4 pg (25.0-35.0); MCHC 30.9 g/dL (31.0-37.0); Macrocytosis Marked; Mean Platelet Volume 11.1; Monocytes # (A) 0.5 k/uL (0-1.0); Monocytes % (A) 7 %; Neutrophils # (A) 6.2 k/uL (1.3-7.7); Neutrophils % (A) 80 %; Platelet Count 114 k/uL (150-450); Poikilocytosis Slight; RBC 2.01 m/uL (4.30-5.90); RDW 22.5 % (11.5-15.5); WBC 7.7 k/uL (3.8-10.6)
[2019-11-07 17:52] LABS: HGB 6.5 gm/dL (13.0-17.5)
--- NOTE | 2019-11-07 17:57 | XR ---
EXAMINATION: XR chest 2V DATE AND TIME: 11/07/2019 5:50 PM CLINICAL INDICATION: PHH; difficulty breathing TECHNIQUE: Departmental protocol COMPARISON: 10/31/2019 FINDINGS: The baseline chronic emphysematous and parenchymal fibrotic changes are redemonstrated. Since the previous study there are more bilateral ill-defined consolidative infiltrates, now right gr eater than left, with air bronchograms visible currently. In addition, there is new silhouetting of the pulmonary vasculature bilaterally by a fine reticular p attern of increased attenuation, which could correlate with a clinical diagnosis of mild interstitial phase pulmonary edema. The pleural spaces are negative. The cardiac silhouette is not enlarged. The remainder of the mediastinal silhouette is unremarkable. The skeletal structures and soft tissues are negative for acute findings. IMPRESSION: Interval worsening in the lung inflation pattern: increasing bilateral lung parenchymal consolidative infiltrates and possible mild interstitial phase pulmonary edema.
[2019-11-07 18:03] LABS: INR 1.3 (<1.2); Partial Thromboplastin Time 25.9 sec (22.0-30.0); Prothrombin Time 12.9 sec (9.0-12.0)
[2019-11-07 18:26] LABS: Albumin 3.3 g/dL (3.5-5.0); Calcium 8.2 mg/dL (8.4-10.2); Magnesium 1.2 mg/dL (1.6-2.3); Potassium 4.8 mmol/L (3.5-5.1); Total Bilirubin 1.2 mg/dL (0.2-1.3); Total Protein 5.9 g/dL (6.3-8.2)
[2019-11-07] MEDS ORDERED: ONDANSETRON 4 MG/2 ML VIAL IVP PRN (18:58)
[2019-11-07] MEDS ORDERED: NALOXONE 0.4 MG/ML 1 ML VIAL IV PRN (18:58)
[2019-11-07] MEDS ORDERED: ACETAMINOPHEN TAB 325 MG TAB PO PRN (18:58)
[2019-11-08] MEDS: FUROSEMIDE 10 MG/ML 2 ML VIAL IV SCH ×3 (01:32→21:35)
[2019-11-08 02:54] LABS: Anisocytosis Moderate; HCT 28.4 % (39.0-53.0); HGB 9.2 gm/dL (13.0-17.5); Hypochromasia Slight; MCH 32.3 pg (25.0-35.0); MCHC 32.4 g/dL (31.0-37.0); MCV 99.7 fL (80.0-100.0); Macrocytosis Moderate; Mean Platelet Volume 10.9; Poikilocytosis Slight; RBC 2.85 m/uL (4.30-5.90); RDW 21.1 % (11.5-15.5); WBC 6.3 k/uL (3.8-10.6)
[2019-11-08 02:55] LABS: Platelet Count 90 k/uL (150-450)
[2019-11-08] MEDS ORDERED: MAGNESIUM HYDROXIDE 2,400 MG/10 ML CUP PO PRN (08:32)
[2019-11-08] MEDS ORDERED: IPRATROPIUM-ALBUTEROL 3 ML NEB INHALATION PRN (08:32)
[2019-11-08] MEDS ORDERED: BISACODYL 10 MG SUPP RECTAL PRN (08:32)
[2019-11-08] MEDS ORDERED: TRIAMCINOLONE INTRAARTIC PRN (08:32)
[2019-11-08] MEDS ORDERED: NITROGLYCERIN SL TABS 0.4 MG TAB SUBLINGUAL PRN (08:32)
[2019-11-08] MEDS ORDERED: CALCIUM CARBONATE 500 MG CHEWABLE PO PRN (08:32)
[2019-11-08] MEDS ORDERED: traMADol 50 MG TAB PO PRN (08:32)
[2019-11-08] MEDS: PANTOPRAZOLE 40 MG TABLET PO SCH (09:14)
[2019-11-08] MEDS: METOPROLOL SUCCINATE (ER) 25 MG TAB.ER.24H PO SCH (09:14)
[2019-11-08] MEDS: MAGNESIUM SULFATE-D5W PMX 1 GM in DEXTROSE/WATER 1 100ML.BAG IVPB SCH ×2 (09:15→10:23)
[2019-11-08] MEDS: LEVOTHYROXINE 88 MCG TAB PO SCH (09:15)
[2019-11-08] MEDS: POTASSIUM CHLORIDE ER 10 MEQ TAB.ER.PRT PO SCH (09:15)
[2019-11-08] MEDS: MIDODRINE 5 MG TAB PO SCH ×2 (10:28→16:05)
[2019-11-08 12:50] LABS: Anisocytosis Moderate; HCT 31.7 % (39.0-53.0); HGB 10.1 gm/dL (13.0-17.5); Hypochromasia Slight; MCH 31.7 pg (25.0-35.0); MCHC 31.8 g/dL (31.0-37.0); MCV 99.8 fL (80.0-100.0); Macrocytosis Moderate; Mean Platelet Volume 10.3; Poikilocytosis Slight; RBC 3.18 m/uL (4.30-5.90); RDW 21.4 % (11.5-15.5); WBC 7.3 k/uL (3.8-10.6)
[2019-11-08 12:56] LABS: Calcium 8.4 mg/dL (8.4-10.2); Potassium 3.7 mmol/L (3.5-5.1)
[2019-11-08 12:57] LABS: Platelet Count 91 k/uL (150-450)
[2019-11-08] MEDS: DIVALPROEX 250 MG TABLET.DR PO SCH ×2 (13:26→21:34)
[2019-11-08] MEDS: DILTIAZEM ORAL 30 MG TAB PO SCH ×2 (13:26→21:35)
[2019-11-08] MEDS ORDERED: MAGNESIUM OXIDE 400 MG TAB PO SCH (17:00)
[2019-11-08] MEDS ORDERED: FERROUS SULFATE 325 MG TAB PO SCH (17:00)
[2019-11-08] MEDS ORDERED: FOLIC ACID 1 MG TAB PO SCH (17:00)
[2019-11-08 18:41] LABS: Anisocytosis Moderate; HCT 31.2 % (39.0-53.0); HGB 9.7 gm/dL (13.0-17.5); Hypochromasia Moderate; MCH 31.7 pg (25.0-35.0); MCHC 31.2 g/dL (31.0-37.0); MCV 101.4 fL (80.0-100.0); Macrocytosis Moderate; Mean Platelet Volume 11.1; Poikilocytosis Slight; RBC 3.07 m/uL (4.30-5.90); RDW 21.3 % (11.5-15.5)
[2019-11-08 18:42] LABS: Platelet Count 90 k/uL (150-450)
[2019-11-08] MEDS: SYMBICORT 160-4.5 MCG INHALER INHALATION SCH (20:00)
[2019-11-08 20:08] LABS: % Iron Saturation 54.2 (15.00-50.00)
[2019-11-08] MEDS ORDERED: ATORVASTATIN 40 MG TAB PO SCH (21:00)
--- NOTE | 2019-11-08 23:55 | P.HPIM ---
History of Present Illness H&P Date: 11/08/19 Chief Complaint: SOB Patient is a 69-year-old male with a known history of chronic CHF with diastolic dysfunction, chronic atrial fibrillation not on any anticoagulation due to history of GI bleed, Orthostatic hypotension currently on midodrine 5 mg 3 times daily, chronic hypoxic respiratory failure on 3 L oxygen, chronic interstitial lung changes and history of lung cancer and CKD stage III with baseline creatinine around 1.5 and other multiple medical problems was sent to ER from [facility]care facility due to complaints of shortness of breath. Patient has been having worsening shortness of breath since yesterday morning. Does have cough with mucus tinged sputum production on and off. No fever no chills. Denies any complaints of chest pain. No nausea vomiting or abdominal pain or diarrhea. Patient was found to have hemoglobin level 6.5. Hemoglobin during last admission was 7.6. Patient had prior work-up by hematology was done due to anemia and thought to be myelodysplasia and recommended to follow-up as an outpatient. Patient otherwise denied any complaints of lower extremity worsening edema. No dysuria or hematuria. No headache or dizziness or lightheadedness. Patient was recently admitted to the hospital due to orthostatic hypotension and his diuretics were held at that time. Patient does take midodrine 3 times daily for orthostatic hypotension. Chest x-ray showed interval worsening in the lung infiltration process. Increasing bilateral lung parenchymal consolidative infiltrates and possible mild interstitial phase pulmonary edema. EKG showed undetermined rhythm. T wave abnormality. Laboratory data showed WBC 7.7, hemoglobin 6.5, MCV 105, platelets 114 and RDW 22.5 Lactic acid was 3.5 on admission Magnesium 1.2 AST 289 and ALT 146 Stool occult blood negative. COVID-19 PCR negative. Review of Systems Constitutional: Patient denies any fever or chills . No generalized weakness or weight loss. Abdomen: Patient denied nausea vomiting and diarrhea and abdominal pain. Cardiovascular: Patient denies any chest pain +short of breath no palpitations. Respiratory: patient denied any cough is from production. No shortness of breath Neurologic: Patient denied any numbness or tingling. Patient does have dizziness and near syncope.. Musculoskeletal: Patient denies any complaints of joint swelling or deformity. Skin: Negative Psychiatric: Negative Endocrine: No heat or cold intolerance. No recent weight gain. Genitourinary: No dysuria or hematuria. All other 14 point ROS negative except the above Past Medical History Past Medical History: Atrial Fibrillation, Cancer, Chest Pain / Angina, COPD, CVA/TIA, GERD/Reflux, GI Bleed, Hyperlipidemia, Hypertension, Myocardial Infarction (AR), Musculoskeletal Disorder, Renal Disease, Seizure Disorder Additional Past Medical History / Comment(s): colonoscopy then laparoscopic sigmoid colectomy for adenocarcinoma was performed on 07/19/14. Other HX: colon cancer found during colonoscopy-polyp which was adenocarcinoma, SQUAMOUS CELL CARCINOMA LT UPPER LOBE. ULCER; EPILEPTIC - STATES LAST SEIZURE PREV TO 1994; CVA - AFFECTS SPEECH/able to print but not write in cursive. UNABLE TO COMPLETELY CLOSE LEFT HAND R/T hx of LARGE LACERATION. HX OF RT HIP DISORDER, WORE CAST, THEN BRACE FOR 2 YRS, chronic low back pain, renal cysts and kidney stones, GI bleed associated with anticoaulation. Has home O2 which he uses when necessary Last Myocardial Infarction Date:: patient reports 19 years ago History of Any Multi-Drug Resistant Organisms: None Reported, C-DIFF Date of last positivie culture/infection: 10/23/18 MDRO Source:: stool Past Surgical History: Orthopedic Surgery Additional Past Surgical History / Comment(s): 07/19/14 Laparoscopic sigmoid colectomy. LEFT HAND SX, EXC VILMA CATARACTS; COLONOSCOPY 05/26/14.BRONCH/BX- PNUEMOTHORAX/CHEST TUBE /WEDGE RESECTION TUMOR LT UPPER LOBE. Past Anesthesia/Blood Transfusion Reactions: No Reported Reaction Past Psychological History: No Psychological Hx Reported Additional Psychological History / Comment(s): PT HAS BEEN A [place] SINCE DISCHARGE FROM [facility] IN [place]. STATED HE USES A CANE AND 1 TO ASSIST. O2 WHEN NEEDED. . No experience. No international travel Smoking Status: Former smoker Past Alcohol Use History: None Reported Additional Past Alcohol Use History / Comment(s): STARTED SMOKING AT AGE 12 SMOKED 4 PPD. QUIT 2006 Past Drug Use History: None Reported - Past Family History Father Family Medical History: CVA/TIA Mother Family Medical History: Cancer Medications and Allergies Home Medications Medication Instructions Recorded Confirmed Type Budesonide-Formot 160-4.5 Mcg 2 puff INHALATION RT-BID@0800,1700 05/22/14 11/07/19 History [Symbicort 160-4.5 Mcg Inhaler] Bisacodyl [Dulcolax] 10 mg RECTAL DAILY PRN 04/03/17 11/07/19 History Calcium Carbonate [Tums] 500 mg PO Q8H PRN 04/03/17 11/07/19 History Nitroglycerin Sl Tabs [Nitrostat] 0.4 mg SUBLINGUAL Q5M PRN #20 tab 04/05/17 11/07/19 Rx Acetaminophen [Tylenol] 650 mg PO Q6H PRN 10/20/18 11/07/19 History Ferrous Sulfate [Feosol] 325 mg PO DAILY@1700 10/20/18 11/07/19 History Folic Acid 1 mg PO DAILY@1700 10/20/18 11/07/19 History Magnesium Oxide 400 mg PO DAILY@1700 10/20/18 11/07/19 History Montelukast [Singulair] 10 mg PO DAILY@0800 10/20/18 11/07/19 History Na Phos,M-B/Na Phos,Di-Ba [Fleet 133 ml RECTAL DAILY PRN 10/20/18 11/07/19 History Adult] Potassium Chloride ER [K-Dur 20] 30 meq PO DAILY@0800 10/20/18 11/07/19 History Atorvastatin [Lipitor] 40 mg PO HS@2100 10/31/19 11/07/19 History Diltiazem Oral [Cardizem*] 30 mg PO TID@0600,1400,0 10/31/19 11/07/19 History Divalproex [Depakote] 250 mg PO TID@0600,1400,2200 10/31/19 11/07/19 History Insulin Lispro [humaLOG] See Protocol SQ ACHS 10/31/19 11/07/19 History Ipratropium-Albuterol Nebulize 3 ml INHALATION RT-QID PRN 10/31/19 11/07/19 History [Duoneb 0.5 mg-3 mg/3 ml Soln] Kenalog-40 Suspension 1 ml INTRAARTIC ONCE PRN 10/31/19 11/07/19 History Levothyroxine Sodium [Synthroid] 88 mcg PO DAILY@0600 10/31/19 11/07/19 History Lidocaine 2% Soultion 2 ml INTRAARTIC ONCE PRN 10/31/19 11/07/19 History Magnesium Hydroxide [Milk of 7,200 mg PO Q48H PRN 10/31/19 11/07/19 History Magnesia Concentrate] Midodrine [ProAmatine] 5 mg PO TID@0700,1200,1700 10/31/19 11/07/19 History Omeprazole [PriLOSEC] 40 mg PO DAILY@0600 10/31/19 11/07/19 History PARoxetine [Paxil] 10 mg PO DAILY@0800 10/31/19 11/07/19 History Saccharomyces Boulardii 250mg 1 cap PO BID@0800,1700 10/31/19 11/07/19 History Capsule Sodium Chloride [[place]] 1 spray EA NOSTRIL Q1H PRN 10/31/19 11/07/19 History rOPINIRole HCL [Requip] 0.5 mg PO TID@0600,1400,2100 10/31/19 11/07/19 History traMADol HCL 50 mg PO Q6H PRN 10/31/19 11/07/19 History Furosemide [Lasix] 20 mg PO DAILY #30 tab 11/04/19 11/07/19 Rx Metoprolol Succinate [Toprol XL] 25 mg PO DAILY@0800 11/07/19 11/07/19 History Allergies Allergy/AdvReac Type Severity Reaction Status Date / Time phenobarbital Allergy Unknown Hallucinati Verified 11/07/19 19:20 ons Influenza Virus Vaccines Allergy Unknown Verified 11/07/19 19:20 Physical Exam Vitals: Vital Signs Temp Pulse Pulse Resp BP BP Pulse Ox 11/08/19 07:10 19 11/08/19 07:00 98.1 F 110 H 19 156/85 95 11/08/19 04:00 105 H 20 11/08/19 02:15 97.8 F 108 H 20 143/75 94 L 11/08/19 00:35 97.8 F 108 H 20 143/75 94 L 11/08/19 00:00 105 H 20 11/07/19 23:10 98.3 F 103 H 18 144/81 93 L 11/07/19 23:00 98 F 105 H 20 122/87 92 L 11/07/19 22:59 98 F 107 H 18 122/87 93 L 11/07/19 22:57 98 F 114 H 120/70 92 L 11/07/19 21:05 98 F 114 H 20 120/70 92 L 11/07/19 20:17 98 F 98 20 133/76 95 11/07/19 20:16 105 H 20 11/07/19 19:37 97.2 F L 101 H 18 94 L 11/07/19 19:07 98.3 F 98 20 127/78 92 L 11/07/19 18:57 98.5 F 97 18 125/71 90 L 11/07/19 17:33 100 20 101/64 98 11/07/19 16:29 98.8 F 89 22 124/62 86 L Intake and Output 11/07/19 11/08/19 11/08/19 22:59 06:59 14:59 Intake Total 510 310 Output Total 500 Balance 510 -190 Intake: Oral 200 Blood Product 310 310 Rc As-3 Unit 310 [id number] Rc As-3 Unit 310 [id number] Output: Urine 500 Other: # Voids 1 Weight 62.142 kg PHYSICAL EXAMINATION: Patient is lying in the bed comfortably, no acute distress, awake alert and oriented.. HEENT: Normocephalic. Neck is supple. Pupils reactive. Nostrils clear. Oral cavity is moist. Ears reveal no drainage. Neck reveals no JVD, carotid bruits, or thyromegaly. CHEST EXAMINATION: Trachea is central. Symmetrical expansion. bilaleral fine crackes. no wheezing. CARDIAC: Normal S1, S2 with no gallops. No murmurs ABDOMEN: Soft. Bowel sounds normal. No organomegaly. No abdominal bruits. Extremities: reveal no edema. No clubbing or cyanosis. tachycardic Neurologically awake, alert, oriented x3 with well-coordinated movements. No focal deficits noted Skin: No rash or skin lesions. Psychiatric: Coperative. Nonsuicidal Musculoskeletal: No joint swelling or deformity. Normal range of motion. Results CBC & Chem 7: 11/08/19 18:24 11/08/19 12:22 Labs: Abnormal Lab Results - Last 24 Hours (Table) 11/07/19 11/07/19 11/07/19 Range/Units 17:30 17:30 17:30 RBC 2.01 L (4.30-5.90) m/uL Hgb 6.5 L* (13.0-17.5) gm/dL Hct 21.1 L (39.0-53.0) % MCV 105.0 H (80.0-100.0) fL MCHC 30.9 L (31.0-37.0) g/dL RDW 22.5 H (11.5-15.5) % Plt Count 114 L (150-450) k/uL Lymphocytes # 0.8 L (1.0-4.8) k/uL Macrocytosis Marked A PT 12.9 H (9.0-12.0) sec INR 1.3 H (<1.2) Carbon Dioxide (22-30) mmol/L BUN (9-20) mg/dL Creatinine (0.66-1.25) mg/dL Plasma Lactic Acid Jhonny 3.5 H* (0.7-2.0) mmol/L Calcium (8.4-10.2) mg/dL Magnesium (1.6-2.3) mg/dL AST (17-59) U/L ALT (4-49) U/L Total Protein (6.3-8.2) g/dL Albumin (3.5-5.0) g/dL Crossmatch 11/07/19 11/07/19 11/08/19 Range/Units 17:30 18:05 02:15 RBC 2.85 L (4.30-5.90) m/uL Hgb 9.2 L D (13.0-17.5) gm/dL Hct 28.4 L (39.0-53.0) % MCV (80.0-100.0) fL MCHC (31.0-37.0) g/dL RDW 21.1 H (11.5-15.5) % Plt Count 90 L (150-450) k/uL Lymphocytes # (1.0-4.8) k/uL Macrocytosis PT (9.0-12.0) sec INR (<1.2) Carbon Dioxide 19 L (22-30) mmol/L BUN 42 H (9-20) mg/dL Creatinine 1.63 H (0.66-1.25) mg/dL Plasma Lactic Acid Jhonny (0.7-2.0) mmol/L Calcium 8.2 L (8.4-10.2) mg/dL Magnesium 1.2 L (1.6-2.3) mg/dL AST 289 H (17-59) U/L ALT 146 H (4-49) U/L Total Protein 5.9 L (6.3-8.2) g/dL Albumin 3.3 L (3.5-5.0) g/dL Crossmatch See Detail Thrombosis Risk Factor Assmnt - DVT/VTE Prophylaxis DVT/VTE Prophylaxis: Pharmacologic Prophylaxis ordered - Choose All That Apply Any of the Below Risk Factors Present?: No Each Risk Factor Represents 2 Points: Age 61-74 years Other congenital or acquired thrombophilia - If yes, enter type in comment: No Thrombosis Risk Factor Assessment Total Risk Factor Score: 2 Thrombosis Risk Factor Assessment Level: Low Risk Assessment and Plan Assessment: SOB is multifactorial due to Anemia and CHF Acute on Chronic CHF with diastolic dysfunction Symptomatic anemia. s/p 2u PRBC Transfusion Chronic orthostatic hypotension. On midodrine Lactic acidosis Acute kidney injury with significant elevated BUN and creatinine 1.63. Creatinine baseline 1.5 Elevated BUN without evidence of acute CHF. Chronic atrial fibrillation not on anticoagulation due to GI bleed history Chronic hypoxic respiratory failure on 3 L oxygen at home COPD not in exacerbation Coronary artery disease Chronic kidney disease stage III Hypothyroidism Hypertension History of lung cancer status post left wedge resection History of colon cancer status post sigmoid colectomy Aortic arch aneurysmal dilatation 3.3 cm stable present study Seizure disorder History of CVA History of peptic ulcer disease Macrocytic anemia with hemoglobin 9.2 Chronic low back pain Previous history of smoking DVT prophylaxis with heparin subcu Plan: Patient will be continued telemetry monitoring. s/p 2U PRBC transfusion started on IV lasix 20mg Q12. Continue with Midrin. monitor for Dizziness/ Symptoms have orthostatic hypotension. Continue with metoprolol and Cardizem as blood pressure tolerates. Since the patient is still tachycardic. Telemetry monitoring. Repeat chest x-ray tomorrow. Patient was seen by cardiology during recent admission. Patient will need hematology follow-up as an outpatient. Iron profile, B12 and folate levels ordered. Continue with home medications and follow-up closely. Further recommendations based on the clinical course. Prognosis guarded with multiple medical problems and comorbid conditions. Time with Patient: Greater than 30
[2019-11-09 02:05] VITALS: TEMP 98.3
[2019-11-09] MEDS: DIVALPROEX 250 MG TABLET.DR PO SCH ×2 (05:50→14:08)
[2019-11-09] MEDS: LEVOTHYROXINE 88 MCG TAB PO SCH (05:50)
[2019-11-09] MEDS: DILTIAZEM ORAL 30 MG TAB PO SCH ×2 (05:50→14:08)
[2019-11-09] MEDS: PANTOPRAZOLE 40 MG TABLET PO SCH (05:50)
[2019-11-09] MEDS: SYMBICORT 160-4.5 MCG INHALER INHALATION SCH (07:20)
[2019-11-09] MEDS: MIDODRINE 5 MG TAB PO SCH ×2 (07:25→14:08)
[2019-11-09] MEDS: FUROSEMIDE 10 MG/ML 2 ML VIAL IV SCH (07:25)
[2019-11-09] MEDS: METOPROLOL SUCCINATE (ER) 25 MG TAB.ER.24H PO SCH (07:26)
[2019-11-09] MEDS: POTASSIUM CHLORIDE ER 10 MEQ TAB.ER.PRT PO SCH (07:26)
--- NOTE | 2019-11-09 07:45 | XR ---
EXAMINATION TYPE: XR chest 1V DATE OF EXAM: 11/09/2019 COMPARISON: Prior chest x-ray 11/07/2019 HISTORY: Difficulty breathing, shortness of breath TECHNIQUE: Single frontal view of the chest is obtained. FINDINGS: Pleural parenchymal changes are similar to prior exam. There is elevation of right hemidia phragm. Interstitial changes are present bilaterally. Pleural thickening, left hilar retraction again noted at the left lung apex with abnormal increased attenuation. Possible airspace disease right upp er lobe. IMPRESSION: Correlate for possible pneumonia.
[2019-11-09 07:53] LABS: Anisocytosis Moderate; Basophils % (A) 0 %; Eosinophils # (A) 0.1 k/uL (0-0.7); Eosinophils % (A) 1 %; HCT 28.1 % (39.0-53.0); Hypochromasia Slight; Lymphocytes # (A) 0.7 k/uL (1.0-4.8); Lymphocytes % (A) 11 %; MCHC 31.9 g/dL (31.0-37.0); MCV 100.1 fL (80.0-100.0); Macrocytosis Moderate; Mean Platelet Volume 10.7; Monocytes # (A) 0.5 k/uL (0-1.0); Monocytes % (A) 9 %; Neutrophils # (A) 4.4 k/uL (1.3-7.7); Neutrophils % (A) 76 %; Poikilocytosis Slight; RBC 2.81 m/uL (4.30-5.90); RDW 20.9 % (11.5-15.5); WBC 5.7 k/uL (3.8-10.6)
[2019-11-09 07:57] LABS: Platelet Count 81 k/uL (150-450)
[2019-11-09] MEDS ORDERED: MONTELUKAST 10 MG TAB PO SCH (08:00)
[2019-11-09] MEDS ORDERED: PARoxetine 10 MG TAB PO SCH (08:00)
[2019-11-09 08:09] LABS: Potassium 3.4 mmol/L (3.5-5.1)
[2019-11-09 09:07] VITALS: BP 142/81; PULSE 67; RESP 18
[2019-11-09] MEDS ORDERED: NYSTATIN 100,000 UNIT/ML SUSP 500,000 UNIT/5 ML CUP PO SCH (13:00)
--- NOTE | 2019-11-09 14:20 | P.DS ---
Providers Date of admission: 11/07/19 18:18 Attending physician: Beth Dunbar Primary care physician: [facility] Course: 69-year-old male with a known history of chronic CHF with diastolic dysfunction, chronic atrial fibrillation not on any anticoagulation due to history of GI bleed, Orthostatic hypotension currently on midodrine 5 mg 3 times daily, chronic hypoxic respiratory failure on 3 L oxygen, chronic interstitial lung changes and history of lung cancer and CKD stage III with baseline creatinine around 1.5 and other multiple medical problems was sent to ER from [facility]care facility due to complaints of shortness of breath. Patient has been having worsening shortness of breath since yesterday morning. Does have cough with mucus tinged sputum production on and off. No fever no chills. Denies any complaints of chest pain. No nausea vomiting or abdominal pain or diarrhea. Patient was found to have hemoglobin level 6.5. Hemoglobin during last admission was 7.6. Patient had prior work-up by hematology was done due to anemia and thought to be myelodysplasia and recommended to follow-up as an outpatient. Patient otherwise denied any complaints of lower extremity worsening edema. No dysuria or hematuria. No headache or dizziness or lightheadedness. Patient was recently admitted to the hospital due to orthostatic hypotension and his diuretics were held at that time. Patient does take midodrine 3 times daily for orthostatic hypotension. Chest x-ray showed interval worsening in the lung infiltration process. Increasing bilateral lung parenchymal consolidative infiltrates and possible mild interstitial phase pulmonary edema. EKG showed undetermined rhythm. T wave abnormality. Laboratory data showed WBC 7.7, hemoglobin 6.5, MCV 105, platelets 114 and RDW 22.5 Lactic acid was 3.5 on admission Magnesium 1.2 AST 289 and ALT 146 Stool occult blood negative. COVID-19 PCR negative. 11/09/2019 There is no evidence of GI bleed at this time patient received the blood transfusion after which hemoglobin went up to about 9. Patient received 2 units of PRBC transfusion. Patient does have history of myelodysplasia. Patient was pretty status is at his baseline patient is presently on 3 L saturating at 97% patient uses 3 L of onset at home patient's serum creatinine is around 1.4 today improved compared to yesterday baseline is normal but the since her last few months his creatinine remained at around 1.4 1.5 which is consistent with chronic kidney disease stage III. Patient chest x-ray showing pneumonic infiltrate although patient doesn't have any clinical signs or symptoms of pneumonia at this time. This infiltrate is probably the residual infiltrate that has been resolving since his last hospitalization at [facility]. PHYSICAL EXAMINATION: GENERAL: The patient is alert and oriented x3, not in any acute distress. Well developed, well nourished. HEENT: Pupils are round and equally reacting to light. EOMI. No scleral icterus. No conjunctival pallor. Normocephalic, atraumatic. No pharyngeal erythema. No thyromegaly. CARDIOVASCULAR: S1 and S2 present. No murmurs, rubs, or gallops. PULMONARY: Good air entry with mild rhonchi bilaterally ABDOMEN: Soft, nontender, nondistended, normoactive bowel sounds. No palpable organomegaly. MUSCULOSKELETAL: No joint swelling or deformity. EXTREMITIES: No cyanosis, clubbing, or pedal edema. NEUROLOGICAL: Gross neurological examination did not reveal any focal deficits. SKIN: No rashes. Please refer to documentation from Dr. Irwin for further details of hospitalization and other medical problems that were addressed here Patient Condition at Discharge: Serious Plan - Discharge Summary Discharge Rx Participant: No New Discharge Prescriptions: New Furosemide [Lasix] 20 mg PO BID@0900,1600 tab Nystatin 100,000 Unit/ml Susp [Mycostatin Oral Susp] 500,000 unit PO QID #100 ml Continue Budesonide-Formot 160-4.5 Mcg [Symbicort 160-4.5 Mcg Inhaler] 2 puff INHALATION RT-BID@0800,1700 Calcium Carbonate [Tums] 500 mg PO Q8H PRN PRN Reason: Indigestion Bisacodyl [Dulcolax] 10 mg RECTAL DAILY PRN PRN Reason: Constipation Nitroglycerin Sl Tabs [Nitrostat] 0.4 mg SUBLINGUAL Q5M PRN #20 tab PRN Reason: Chest Pain Acetaminophen [Tylenol] 650 mg PO Q6H PRN PRN Reason: Pain Ferrous Sulfate [Feosol] 325 mg PO DAILY@1700 Folic Acid 1 mg PO DAILY@1700 Magnesium Oxide 400 mg PO DAILY@1700 Montelukast [Singulair] 10 mg PO DAILY@0800 Na Phos,M-B/Na Phos,Di-Ba [Fleet Adult] 133 ml RECTAL DAILY PRN PRN Reason: Constipation Potassium Chloride ER [K-Dur 20] 30 meq PO DAILY@0800 Sodium Chloride [[place]] 1 spray EA NOSTRIL Q1H PRN PRN Reason: Congestion Magnesium Hydroxide [Milk of Magnesia Concentrate] 7,200 mg PO Q48H PRN PRN Reason: Constipation Lidocaine 2% Soultion 2 ml INTRAARTIC ONCE PRN PRN Reason: LEFT SHOULDER PAIN Kenalog-40 Suspension 1 ml INTRAARTIC ONCE PRN PRN Reason: LEFT SHOULDER PAIN Ipratropium-Albuterol Nebulize [Duoneb 0.5 mg-3 mg/3 ml Soln] 3 ml INHALATION RT-QID PRN PRN Reason: Shortness Of Breath Or Wheezing Insulin Lispro [humaLOG] See Protocol SQ ACHS rOPINIRole HCL [Requip] 0.5 mg PO TID@0600,1400,2100 Midodrine [ProAmatine] 5 mg PO TID@0700,1200,1700 Diltiazem Oral [Cardizem*] 30 mg PO TID@0600,1400,2200 Divalproex [Depakote] 250 mg PO TID@0600,1400,2200 Saccharomyces Boulardii 250mg Capsule 1 cap PO BID@0800,1700 PARoxetine [Paxil] 10 mg PO DAILY@0800 Omeprazole [PriLOSEC] 40 mg PO DAILY@0600 Levothyroxine Sodium [Synthroid] 88 mcg PO DAILY@0600 Atorvastatin [Lipitor] 40 mg PO HS@2100 Metoprolol Succinate [Toprol XL] 25 mg PO DAILY@0800 traMADol HCL 50 mg PO Q6H PRN #12 tab PRN Reason: Moderate Pain Discontinued Furosemide [Lasix] 20 mg PO DAILY #30 tab Discharge Medication List Budesonide-Formot 160-4.5 Mcg [Symbicort 160-4.5 Mcg Inhaler] 2 puff INHALATION RT-BID@0800,1700 05/22/14 [History] Bisacodyl [Dulcolax] 10 mg RECTAL DAILY PRN 04/03/17 [History] Calcium Carbonate [Tums] 500 mg PO Q8H PRN 04/03/17 [History] Nitroglycerin Sl Tabs [Nitrostat] 0.4 mg SUBLINGUAL Q5M PRN #20 tab 04/05/17 [Rx] Acetaminophen [Tylenol] 650 mg PO Q6H PRN 10/20/18 [History] Ferrous Sulfate [Feosol] 325 mg PO DAILY@169910/20/18 [History] Folic Acid 1 mg PO DAILY@169910/20/18 [History] Magnesium Oxide 400 mg PO DAILY@169910/20/18 [History] Montelukast [Singulair] 10 mg PO DAILY@0810/20/18 [History] Na Phos,M-B/Na Phos,Di-Ba [Fleet Adult] 133 ml RECTAL DAILY PRN 10/20/18 [History] Potassium Chloride ER [K-Dur 20] 30 meq PO DAILY@0810/20/18 [History] Atorvastatin [Lipitor] 40 mg PO HS@2100 10/31/19 [History] Diltiazem Oral [Cardizem*] 30 mg PO TID@0600,1400,0 10/31/19 [History] Divalproex [Depakote] 250 mg PO TID@0600,1400,219910/31/19 [History] Insulin Lispro [humaLOG] See Protocol SQ ACHS 10/31/19 [History] Ipratropium-Albuterol Nebulize [Duoneb 0.5 mg-3 mg/3 ml Soln] 3 ml INHALATION RT-QID PRN 10/31/19 [History] Kenalog-40 Suspension 1 ml INTRAARTIC ONCE PRN 10/31/19 [History] Levothyroxine Sodium [Synthroid] 88 mcg PO DAILY@0610/31/19 [History] Lidocaine 2% Soultion 2 ml INTRAARTIC ONCE PRN 10/31/19 [History] Magnesium Hydroxide [Milk of Magnesia Concentrate] 7,200 mg PO Q48H PRN 10/31/19 [History] Midodrine [ProAmatine] 5 mg PO TID@0700,1200,0 10/31/19 [History] Omeprazole [PriLOSEC] 40 mg PO DAILY@0610/31/19 [History] PARoxetine [Paxil] 10 mg PO DAILY@0800 10/31/19 [History] Saccharomyces Boulardii 250mg Capsule 1 cap PO BID@0800,1700 10/31/19 [History] Sodium Chloride [[place]] 1 spray EA NOSTRIL Q1H PRN 10/31/19 [History] rOPINIRole HCL [Requip] 0.5 mg PO TID@0600,1400,2100 10/31/19 [History] Metoprolol Succinate [Toprol XL] 25 mg PO DAILY@0800 11/07/19 [History] Furosemide [Lasix] 20 mg PO BID@0900,1600 tab 11/09/19 [Rx] Nystatin 100,000 Unit/ml Susp [Mycostatin Oral Susp] 500,000 unit PO QID #100 ml 11/09/19 [Rx] traMADol HCL 50 mg PO Q6H PRN #12 tab 11/09/19 [Rx] Follow up Appointment(s)/Referral(s): Bruno Armstrong MD [STAFF PHYSICIAN] - 1 Week Robin Scott, [NON-STAFF] - As Needed Sue Arellano MD [Primary Care Provider] - 1-2 days
[2019-11-09] MEDS ORDERED: FUROSEMIDE 20 MG TAB PO SCH (16:00)
== END 2019-11-09 15:48 | DRG 811 ==
LOC: EC 16:27 → 4SSUR 18:18
PROVIDERS: ADMIT Hospitalist; ATTEND Hospitalist
PROC: 30233N1 Transfusion of Nonautologous Red Blood Cells into Peripheral Vein, Percutaneous Approach (ICD-10-PCS; principal; 2019-11-07)
DX: D46.9 Myelodysplastic syndrome, unspecified (principal); I50.33 Acute on chronic diastolic (congestive) heart failure; N17.9 Acute kidney failure, unspecified; J96.11 Chronic respiratory failure with hypoxia; I13.0 Hypertensive heart and chronic kidney disease with heart failure and stage 1 through stage 4 chronic kidney disease, or unspecified chronic kidney disease; E87.2 Acidosis; I48.20 Chronic atrial fibrillation, unspecified; K21.9 Gastro-esophageal reflux disease without esophagitis; E03.9 Hypothyroidism, unspecified; E78.5 Hyperlipidemia, unspecified; G40.909 Epilepsy, unspecified, not intractable, without status epilepticus; G89.29 Other chronic pain; I25.10 Atherosclerotic heart disease of native coronary artery without angina pectoris; Z20.828 Contact with and (suspected) exposure to other viral communicable diseases; J44.9 Chronic obstructive pulmonary disease, unspecified; N18.3 Chronic kidney disease, stage 3 (moderate); I95.1 Orthostatic hypotension; D63.8 Anemia in other chronic diseases classified elsewhere; M54.5 Low back pain; M89.29 Other disorders of bone development and growth, multiple sites; Z79.890 Hormone replacement therapy; Z79.51 Long term (current) use of inhaled steroids; Z79.899 Other long term (current) drug therapy; Z88.7 Allergy status to serum and vaccine; Z88.8 Allergy status to other drugs, medicaments and biological substances; I25.2 Old myocardial infarction; Z86.73 Personal history of transient ischemic attack (TIA), and cerebral infarction without residual deficits; Z87.11 Personal history of peptic ulcer disease; Z87.442 Personal history of urinary calculi; Z87.891 Personal history of nicotine dependence; Z85.118 Personal history of other malignant neoplasm of bronchus and lung; Z85.038 Personal history of other malignant neoplasm of large intestine; Z98.42 Cataract extraction status, left eye; Z98.41 Cataract extraction status, right eye; Z80.9 Family history of malignant neoplasm, unspecified
CPT/HCPCS: 36415; 36430; 71045; 71046; 80048; 80053; 82272; 82607; 82747; 83540; 83550; 83605; 83735; 84484; 85025; 85027; 85610; 85730; 86850; 86900; 86901; 86920; 87635; 93005; 94640; 99285

== ENCOUNTER 2019-12-25 21:18 | Observation (INO) | payer MEDICARE, OTHER ==
--- NOTE | 2019-12-25 21:40 | ED ---
SOB HPI - General Chief Complaint: Shortness of Breath Stated Complaint: WINTER Time Seen by Provider: 12/25/19 21:39 Source: EMS Mode of arrival: EMS Limitations: no limitations - History of Present Illness Initial Comments: Parag is a pleasant 69-year-old gentleman symptoms a past medical history most significant for previous lung cancer, heart failure or A. fib. [place] [facility] [place] sent to the ER today for evaluation of cough and shortness of breath. Patient reports a productive cough subjective fever shortness of breath. He denies any chest pain or palpitations. - Related Data Home Medications Medication Instructions Recorded Confirmed Budesonide-Formot 160-4.5 Mcg 2 puff INHALATION RT-BID@0800,1700 05/22/14 12/25/19 [Symbicort 160-4.5 Mcg Inhaler] Bisacodyl [Dulcolax] 10 mg RECTAL DAILY PRN 04/03/17 12/25/19 Calcium Carbonate [Tums] 500 mg PO Q8H PRN 04/03/17 12/25/19 Acetaminophen [Tylenol] 650 mg PO Q6H PRN 10/20/18 12/25/19 Folic Acid 1 mg PO DAILY@169910/20/18 12/25/19 Magnesium Oxide 400 mg PO DAILY@169910/20/18 12/25/19 Montelukast [Singulair] 10 mg PO DAILY@0800 10/20/18 12/25/19 Na Phos,M-B/Na Phos,Di-Ba [Fleet 133 ml RECTAL DAILY PRN 10/20/18 12/25/19 Adult] Potassium Chloride ER [K-Dur 20] 30 meq PO DAILY@0800 10/20/18 12/25/19 Atorvastatin [Lipitor] 40 mg PO HS@2100 10/31/19 12/25/19 Diltiazem Oral [Cardizem*] 30 mg PO TID@0600,1400,0 10/31/19 12/25/19 Divalproex [Depakote] 250 mg PO TID@0600,1400,2200 10/31/19 12/25/19 Ipratropium-Albuterol Nebulize 3 ml INHALATION RT-QID PRN 10/31/19 12/25/19 [Duoneb 0.5 mg-3 mg/3 ml Soln] Kenalog-40 Suspension 1 ml INTRAARTIC ONCE PRN 10/31/19 12/25/19 Levothyroxine Sodium [Synthroid] 88 mcg PO DAILY@0600 10/31/19 12/25/19 Lidocaine 2% Soultion 2 ml INTRAARTIC ONCE PRN 10/31/19 12/25/19 Magnesium Hydroxide [Milk of 7,200 mg PO Q48H PRN 10/31/19 12/25/19 Magnesia Concentrate] Omeprazole [PriLOSEC] 40 mg PO DAILY@0600 10/31/19 12/25/19 PARoxetine [Paxil] 10 mg PO DAILY@0800 10/31/19 12/25/19 Saccharomyces Boulardii 250mg 1 cap PO BID@0800,1700 10/31/19 12/25/19 Capsule Sodium Chloride [[place]] 1 spray EA NOSTRIL Q1H PRN 10/31/19 12/25/19 rOPINIRole HCL [Requip] 0.5 mg PO TID@0800,1400,2200 10/31/19 12/25/19 Metoprolol Succinate [Toprol XL] 25 mg PO DAILY@0800 11/07/19 12/25/19 Ferrous Sulfate [Iron] 325 mg PO BID@0800,1700 12/25/19 12/25/19 Furosemide [Lasix] 20 mg PO BID@0600,1400 12/25/19 12/25/19 Glucerna Shake 1 can PO TID@0800,1200,1700 12/25/19 12/25/19 Melatonin 5 mg PO HS@2130 12/25/19 12/25/19 Midodrine HCl [ProAmantine] 2.5 mg PO TID@0700,1200,1700 PRN 12/25/19 12/25/19 Previous Rx's Medication Instructions Recorded Nitroglycerin Sl Tabs [Nitrostat] 0.4 mg SUBLINGUAL Q5M PRN #20 tab 04/05/17 traMADol HCL 50 mg PO Q6H PRN #12 tab 11/09/19 Allergies Allergy/AdvReac Type Severity Reaction Status Date / Time phenobarbital Allergy Unknown Hallucinati Verified 12/25/19 22:38 ons Influenza Virus Vaccines Allergy Unknown Verified 12/25/19 22:38 Review of Systems ROS Statement: Those systems with pertinent positive or pertinent negative responses have been documented in the HPI. ROS Other: All systems not noted in ROS Statement are negative. Past Medical History Past Medical History: Atrial Fibrillation, Cancer, Chest Pain / Angina, COPD, CVA/TIA, GERD/Reflux, GI Bleed, Hyperlipidemia, Hypertension, Myocardial Infarction (DE), Musculoskeletal Disorder, Renal Disease, Seizure Disorder Additional Past Medical History / Comment(s): colonoscopy then laparoscopic sigmoid colectomy for adenocarcinoma was performed on 07/19/14. Other HX: colon cancer found during colonoscopy-polyp which was adenocarcinoma, SQUAMOUS CELL CARCINOMA LT UPPER LOBE. ULCER; EPILEPTIC - STATES LAST SEIZURE PREV TO 1994; CVA - AFFECTS SPEECH/able to print but not write in cursive. UNABLE TO COMPLETELY CLOSE LEFT HAND R/T hx of LARGE LACERATION. HX OF RT HIP DISORDER, WORE CAST, THEN BRACE FOR 2 YRS, chronic low back pain, renal cysts and kidney stones, GI bleed associated with anticoaulation. Has home O2 which he uses when necessary Last Myocardial Infarction Date:: patient reports 19 years ago History of Any Multi-Drug Resistant Organisms: None Reported, C-DIFF Date of last positivie culture/infection: 10/23/18 MDRO Source:: stool Past Surgical History: Orthopedic Surgery Additional Past Surgical History / Comment(s): 07/19/14 Laparoscopic sigmoid colectomy. LEFT HAND SX, EXC VILMA CATARACTS; COLONOSCOPY 05/26/14.BRONCH/BX- PNUEMOTHORAX/CHEST TUBE /WEDGE RESECTION TUMOR LT UPPER LOBE. Past Anesthesia/Blood Transfusion Reactions: No Reported Reaction Past Psychological History: No Psychological Hx Reported Smoking Status: Former smoker Past Alcohol Use History: None Reported Past Drug Use History: None Reported - Past Family History Father Family Medical History: CVA/TIA Mother Family Medical History: Cancer General Exam - General Exam Comments Initial Comments: Physical Exam GENERAL: Chronically ill appearing HENT: Normocephalic, Atraumatic. EYES: PERRL, EOMI PULMONARY: Crackles at bases CARDIOVASCULAR: Irregularly irregular ABDOMEN: Soft and nontender with normal bowel sounds. SKIN: Pale : Deferred NEUROLOGIC: Patient is alert and oriented x3. Moving all extremities spontaneously MUSCULOSKELETAL: Normal extremities with adequate strength and full range of motion. No lower extremity swelling or edema. No calf tenderness. PSYCHIATRIC: Normal psychiatric evaluation. Limitations: no limitations Course Vital Signs 12/25/19 12/25/19 12/25/19 21:32 21:59 22:30 Temperature 98.4 F Pulse Rate 98 86 Respiratory 18 22 18 Rate Blood Pressure 88/40 104/58 O2 Sat by Pulse 98 98 Oximetry 12/26/19 00:30 Temperature Pulse Rate Respiratory Rate Blood Pressure O2 Sat by Pulse 95 Oximetry Medical Decision Making - Medical Decision Making Patient was seen and evaluated history is obtained from the patient and review of medical record 69-year-old with extensive medical history presenting with shortness of breath, hemodynamically stable on arrival however he does live in a [facility] Labs including a COVID 19 screen were ordered Patient was on supplemental oxygen Labs reviewed multiple abnormalities most consistent for acute kidney injury as well as evidence of congestive heart failure with a significantly elevated BNP, because of this we have to have gentle fluid hydration with is observation of his breathing. At this point I recommend admission to the hospital for further management. - Lab Data Result diagrams: 12/25/19 22:30 12/25/19 22:30 Lab Results 12/25/19 12/25/19 12/25/19 Range/Units 22:30 22:30 22:30 WBC 5.7 (3.8-10.6) k/uL RBC 2.02 L (4.30-5.90) m/uL Hgb 7.0 L (13.0-17.5) gm/dL Hct 22.0 L (39.0-53.0) % MCV 109.1 H (80.0-100.0) fL MCH 35.0 (25.0-35.0) pg MCHC 32.0 (31.0-37.0) g/dL RDW 24.5 H (11.5-15.5) % Plt Count 157 (150-450) k/uL Neutrophils % (Manual) 75 % Lymphocytes % (Manual) 22 % Monocytes % (Manual) 3 % Neutrophils # (Manual) 4.28 (1.3-7.7) k/uL Lymphocytes # (Manual) 1.25 (1.0-4.8) k/uL Monocytes # (Manual) 0.17 (0-1.0) k/uL Nucleated RBCs 0 (0-0) /100 WBC Manual Slide Review Performed Polychromasia Present Hypochromasia Moderate Poikilocytosis Moderate Poikilocytosis (manual Present Anisocytosis Marked Macrocytosis Marked A Stomatocytes Present PT 12.2 H (9.0-12.0) sec INR 1.2 H (<1.2) APTT 22.6 (22.0-30.0) sec Sodium 136 L (137-145) mmol/L Potassium 4.1 (3.5-5.1) mmol/L Chloride 103 (98-107) mmol/L Carbon Dioxide 23 (22-30) mmol/L Anion Gap 10 mmol/L BUN 39 H (9-20) mg/dL Creatinine 1.55 H (0.66-1.25) mg/dL Est GFR (CKD-EPI)AfAm 51 (>60 ml/min/1.73 sqM) Est GFR (CKD-EPI)NonAf 44 (>60 ml/min/1.73 sqM) Glucose 130 H (74-99) mg/dL Plasma Lactic Acid Jhonny (0.7-2.0) mmol/L Calcium 8.8 (8.4-10.2) mg/dL Total Bilirubin 1.1 (0.2-1.3) mg/dL AST 23 (17-59) U/L ALT 12 (4-49) U/L Alkaline Phosphatase 65 (38-126) U/L Troponin I (0.000-0.034) ng/mL NT-Pro-B Natriuret Pep pg/mL Total Protein 5.9 L (6.3-8.2) g/dL Albumin 3.6 (3.5-5.0) g/dL 12/25/19 12/25/19 12/25/19 Range/Units 22:30 22:30 22:30 WBC (3.8-10.6) k/uL RBC (4.30-5.90) m/uL Hgb (13.0-17.5) gm/dL Hct (39.0-53.0) % MCV (80.0-100.0) fL MCH (25.0-35.0) pg MCHC (31.0-37.0) g/dL RDW (11.5-15.5) % Plt Count (150-450) k/uL Neutrophils % (Manual) % Lymphocytes % (Manual) % Monocytes % (Manual) % Neutrophils # (Manual) (1.3-7.7) k/uL Lymphocytes # (Manual) (1.0-4.8) k/uL Monocytes # (Manual) (0-1.0) k/uL Nucleated RBCs (0-0) /100 WBC Manual Slide Review Polychromasia Hypochromasia Poikilocytosis Poikilocytosis (manual Anisocytosis Macrocytosis Stomatocytes PT (9.0-12.0) sec INR (<1.2) APTT (22.0-30.0) sec Sodium (137-145) mmol/L Potassium (3.5-5.1) mmol/L Chloride (98-107) mmol/L Carbon Dioxide (22-30) mmol/L Anion Gap mmol/L BUN (9-20) mg/dL Creatinine (0.66-1.25) mg/dL Est GFR (CKD-EPI)AfAm (>60 ml/min/1.73 sqM) Est GFR (CKD-EPI)NonAf (>60 ml/min/1.73 sqM) Glucose (74-99) mg/dL Plasma Lactic Acid Jhonny 2.2 H* (0.7-2.0) mmol/L Calcium (8.4-10.2) mg/dL Total Bilirubin (0.2-1.3) mg/dL AST (17-59) U/L ALT (4-49) U/L Alkaline Phosphatase (38-126) U/L Troponin I <0.012 (0.000-0.034) ng/mL NT-Pro-B Natriuret Pep 92405 pg/mL Total Protein (6.3-8.2) g/dL Albumin (3.5-5.0) g/dL - EKG Data -: EKG Interpreted by Me EKG Comments: EKG was obtained due to complaint of shortness of breath EKG was obtained at 2157, rate is 97 rhythm is narrow complex irregularly irregular rhythm with no discernible P waves consistent with atrial fibrillation, QRS is 72 QTc is prolonged at 5:[address] elevations or depressions no evidence of acute ischemia or infarction Disposition Clinical Impression: Congestive heart failure, COPD (chronic obstructive pulmonary disease), Atrial fibrillation, Symptomatic anemia, History of colon cancer, History of myocardial infarction, Chronic respiratory failure with hypoxia Disposition: ADMITTED IP TO THIS HOSP Condition: Serious Is patient prescribed a controlled substance at d/c from ED?: No
[2019-12-25 23:07] LABS: INR 1.2 (<1.2); Prothrombin Time 12.2 sec (9.0-12.0)
[2019-12-25 23:08] LABS: Partial Thromboplastin Time 22.6 sec (22.0-30.0)
[2019-12-25 23:12] LABS: Anisocytosis Marked; Hypochromasia Moderate; MCV 109.1 fL (80.0-100.0); Macrocytosis Marked; Platelet Count 157 k/uL (150-450); Poikilocytosis Moderate; RBC 2.02 m/uL (4.30-5.90); RDW 24.5 % (11.5-15.5); WBC 5.7 k/uL (3.8-10.6)
--- NOTE | 2019-12-25 23:12 | XR ---
EXAMINATION TYPE: XR chest 1V DATE OF EXAM: 12/25/2019 COMPARISON: 11/09/2019 HISTORY: Difficulty breathing TECHNIQUE: FINDINGS: There is coarse interstitial infiltrate throughout the lungs. There is some coalescent dens ity in both upper lobes. There is slight elevated right diaphragm. Pulmonary vascularity is difficult to evaluate because of the extensive lung disease. Heart size is fairly normal. I do not suspect hea rt failure. IMPRESSION: Advanced pulmonary fibrosis. No significant change compared to old exam.
[2019-12-25 23:20] LABS: Albumin 3.6 g/dL (3.5-5.0); Calcium 8.8 mg/dL (8.4-10.2); Potassium 4.1 mmol/L (3.5-5.1); Total Bilirubin 1.1 mg/dL (0.2-1.3); Total Protein 5.9 g/dL (6.3-8.2)
[2019-12-25 23:31] LABS: Lymphocytes # (M) 1.25 k/uL (1.0-4.8); Monocytes # (M) 0.17 k/uL (0-1.0); Neutrophils # (M) 4.28 k/uL (1.3-7.7); Neutrophils % (M) 75 %; Nucleated Red Blood Cells 0 /100 WBC (0-0); Poikilocytosis (M) Present; Stomatocytes Present; Total Cells Counted 100
[2019-12-25 23:32] LABS: Polychromasia Present
[2019-12-26] MEDS ORDERED: NALOXONE 0.4 MG/ML 1 ML VIAL IV PRN (00:19)
[2019-12-26] MEDS ORDERED: ACETAMINOPHEN TAB 325 MG TAB PO PRN (00:21)
[2019-12-26] MEDS ORDERED: BISACODYL 10 MG SUPP RECTAL PRN (00:21)
[2019-12-26] MEDS ORDERED: MORPHINE SULFATE 4 MG/ML SYRINGE IVP STA (03:18)
[2019-12-26] MEDS: IPRATROPIUM-ALBUTEROL 3 ML NEB INHALATION PRN ×2 (03:47→07:11)
[2019-12-26] MEDS: LEVOTHYROXINE 88 MCG TAB PO SCH (06:34)
[2019-12-26] MEDS: DILTIAZEM ORAL 30 MG TAB PO SCH ×3 (06:34→21:34)
[2019-12-26] MEDS: PANTOPRAZOLE 40 MG TABLET PO SCH (06:34)
[2019-12-26] MEDS: DIVALPROEX 250 MG TABLET.DR PO SCH ×3 (06:34→21:34)
[2019-12-26] MEDS ORDERED: MIDODRINE 5 MG TAB PO PRN (07:00)
[2019-12-26] MEDS: SYMBICORT 160-4.5 MCG INHALER INHALATION SCH ×2 (08:42→20:30)
[2019-12-26] MEDS: MONTELUKAST 10 MG TAB PO SCH (08:58)
[2019-12-26] MEDS: METOPROLOL SUCCINATE (ER) 25 MG TAB.ER.24H PO SCH (08:59)
[2019-12-26] MEDS ORDERED: MELATONIN 5 MG TABLET PO PRN (14:35)
[2019-12-26] MEDS ORDERED: LIDOCAINE 2% INTRAARTIC PRN (14:35)
[2019-12-26] MEDS ORDERED: NITROGLYCERIN SL TABS 0.4 MG TAB SUBLINGUAL PRN (14:35)
[2019-12-26] MEDS ORDERED: NA PHOS,M-B/NA PHOS,DI-BA 133 ML ENEMA RECTAL PRN (14:35)
--- NOTE | 2019-12-26 14:48 | P.HPIM ---
History of Present Illness 69-year-old male well-known to me from his previous hospitalization came in with compensative shortness of breath denied any orthopnea paroxysmal nocturnal dyspnea comparing of cough with whitish sputum production patient has multiple medical problems including chronic diastolic dysfunction, patient chest x-ray showing pulmonary fibrosis does have elevated BNP of around 16,000 but doesn't have any JVD, no pedal edema. No orthopnea or paroxysmal nocturnal dyspnea. Patient also has history of COPD and interstitial pulmonary fibrosis patient does have diffuse fine crackles consistent with pulmonary fibrosis and patient had history of lung cancer which is in remission since 2014 patient has chronic respiratory failure uses 3 days of onset at home patient does have chronic kidney disease with creatinine of around 1.5 at baseline presently and close to the same level patient had lactic acidosis which improved now. Patient denied any fever chills. Patient is on 6 L now his oxygen saturation [place] requirements have come down to 4 L patient has no wheezing on exam Review of Systems REVIEW OF SYSTEMS: CONSTITUTIONAL: No fever, no malaise, no fatigue. HEENT: No recent visual problems or hearing problems. Denied any sore throat. CARDIOVASCULAR: No chest pain, orthopnea, PND, no palpitations, no syncope. PULMONARY: As mentioned in HPI GASTROINTESTINAL: No diarrhea, no nausea, no vomiting, no abdominal pain. NEUROLOGICAL: No headaches, no weakness, no numbness. HEMATOLOGICAL: Denies any bleeding or petechiae. GENITOURINARY: Denies any burning micturition, frequency, or urgency. MUSCULOSKELETAL/RHEUMATOLOGICAL: Denies any joint pain, swelling, or any muscle pain. ENDOCRINE: Denies any polyuria or polydipsia. The rest of the 14-point review of systems is negative. 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 R hip disorder/cast and brace for 2 years as a child, chronic low back pain, DDD, vertebral fractures, past L hand laceration with slight decreased ROM, RLS, hypothyroid. Last Myocardial Infarction Date:: about 1987-pt was in his 40s History of Any Multi-Drug Resistant Organisms: None Reported, C-DIFF Date of last positivie culture/infection: 10/23/18 MDRO Source:: stool Past Surgical History: Orthopedic Surgery Additional Past Surgical History / Comment(s): 2014 colonoscopy/lap sigmoid colectomy, colonoscopies, 2017 bronch/biopsy/pneumo with chest tube/L upper lobe wedge resection, L hand laceration with surgical repair, bilateral cataract removals/lens implants. Past Anesthesia/Blood Transfusion Reactions: No Reported Reaction Additional Past Anesthesia/Blood Transfusion Reaction / Comment(s): Pt has received blood in past without reaction. Smoking Status: Former smoker - Past Family History Father Family Medical History: CVA/TIA Mother Family Medical History: Cancer Additional Family Medical History / Comment(s): Lung cancer-pt states d/t chemical exposure. Medications and Allergies Home Medications Medication Instructions Recorded Confirmed Type Budesonide-Formot 160-4.5 Mcg 2 puff INHALATION RT-BID@0800,1700 05/22/14 12/25/19 History [Symbicort 160-4.5 Mcg Inhaler] Bisacodyl [Dulcolax] 10 mg RECTAL DAILY PRN 04/03/17 12/25/19 History Calcium Carbonate [Tums] 500 mg PO Q8H PRN 04/03/17 12/25/19 History Nitroglycerin Sl Tabs [Nitrostat] 0.4 mg SUBLINGUAL Q5M PRN #20 tab 04/05/17 12/25/19 Rx Acetaminophen [Tylenol] 650 mg PO Q6H PRN 10/20/18 12/25/19 History Folic Acid 1 mg PO DAILY@1700 10/20/18 12/25/19 History Magnesium Oxide 400 mg PO DAILY@1700 10/20/18 12/25/19 History Montelukast [Singulair] 10 mg PO DAILY@0810/20/18 12/25/19 History Na Phos,M-B/Na Phos,Di-Ba [Fleet 133 ml RECTAL DAILY PRN 10/20/18 12/25/19 History Adult] Potassium Chloride ER [K-Dur 20] 30 meq PO DAILY@0810/20/18 12/25/19 History Atorvastatin [Lipitor] 40 mg PO HS@2100 10/31/19 12/25/19 History Diltiazem Oral [Cardizem*] 30 mg PO TID@0600,1400,219910/31/19 12/25/19 History Divalproex [Depakote] 250 mg PO TID@0600,1400,219910/31/19 12/25/19 History Ipratropium-Albuterol Nebulize 3 ml INHALATION RT-QID PRN 10/31/19 12/25/19 History [Duoneb 0.5 mg-3 mg/3 ml Soln] Kenalog-40 Suspension 1 ml INTRAARTIC ONCE PRN 10/31/19 12/25/19 History Levothyroxine Sodium [Synthroid] 88 mcg PO DAILY@59910/31/19 12/25/19 History Lidocaine 2% Soultion 2 ml INTRAARTIC ONCE PRN 10/31/19 12/25/19 History Magnesium Hydroxide [Milk of 7,200 mg PO Q48H PRN 10/31/19 12/25/19 History Magnesia Concentrate] Omeprazole [PriLOSEC] 40 mg PO DAILY@59910/31/19 12/25/19 History PARoxetine [Paxil] 10 mg PO DAILY@79910/31/19 12/25/19 History Saccharomyces Boulardii 250mg 1 cap PO BID@0800,1700 10/31/19 12/25/19 History Capsule Sodium Chloride [[place]] 1 spray EA NOSTRIL Q1H PRN 10/31/19 12/25/19 History rOPINIRole HCL [Requip] 0.5 mg PO TID@0800,1400,2200 10/31/19 12/25/19 History Metoprolol Succinate [Toprol XL] 25 mg PO DAILY@79911/07/19 12/25/19 History traMADol HCL 50 mg PO Q6H PRN #12 tab 11/09/19 12/25/19 Rx Ferrous Sulfate [Iron] 325 mg PO BID@0800,1700 12/25/19 12/25/19 History Furosemide [Lasix] 20 mg PO BID@0600,1400 12/25/19 12/25/19 History Glucerna Shake 1 can PO TID@0800,1200,1700 12/25/19 12/25/19 History Melatonin 5 mg PO HS@2130 12/25/19 12/25/19 History Midodrine HCl [ProAmantine] 2.5 mg PO TID@0700,1200,1700 PRN 12/25/19 12/25/19 History Allergies Allergy/AdvReac Type Severity Reaction Status Date / Time phenobarbital Allergy Unknown Hallucinati Verified 12/25/19 22:38 ons Physical Exam Vitals: Vital Signs Temp Pulse Resp BP Pulse Ox 12/26/19 10:43 98 19 118/65 97 12/26/19 07:23 92 12/26/19 07:11 89 12/26/19 06:52 92 18 140/95 95 12/26/19 03:59 89 12/26/19 03:48 99 12/26/19 01:00 98.6 F 92 18 151/70 12/26/19 00:30 95 12/25/19 22:30 86 18 104/58 98 12/25/19 21:59 22 12/25/19 21:32 98.4 F 98 18 88/40 98 Intake and Output 12/25/19 12/26/19 12/26/19 22:59 06:59 14:59 Other: Weight 62.142 kg 62.142 kg PHYSICAL EXAMINATION: GENERAL: The patient is alert and oriented x3, not in any acute distress. Well developed, well nourished. HEENT: Pupils are round and equally reacting to light. EOMI. No scleral icterus. No conjunctival pallor. Normocephalic, atraumatic. No pharyngeal erythema. No thyromegaly. CARDIOVASCULAR: S1 and S2 present. No murmurs, rubs, or gallops. PULMONARY: Bilateral fine crackles. ABDOMEN: Soft, nontender, nondistended, normoactive bowel sounds. No palpable organomegaly. MUSCULOSKELETAL: No joint swelling or deformity. EXTREMITIES: No cyanosis, clubbing, or pedal edema. NEUROLOGICAL: Gross neurological examination did not reveal any focal deficits. SKIN: No rashes. Results CBC & Chem 7: 12/25/19 22:30 12/25/19 22:30 Labs: Abnormal Lab Results - Last 24 Hours (Table) 12/25/19 12/25/19 12/25/19 Range/Units 22:30 22:30 22:30 RBC 2.02 L (4.30-5.90) m/uL Hgb 7.0 L (13.0-17.5) gm/dL Hct 22.0 L (39.0-53.0) % MCV 109.1 H (80.0-100.0) fL RDW 24.5 H (11.5-15.5) % Macrocytosis Marked A PT 12.2 H (9.0-12.0) sec INR 1.2 H (<1.2) Sodium 136 L (137-145) mmol/L BUN 39 H (9-20) mg/dL Creatinine 1.55 H (0.66-1.25) mg/dL Glucose 130 H (74-99) mg/dL Plasma Lactic Acid Jhonny (0.7-2.0) mmol/L Total Protein 5.9 L (6.3-8.2) g/dL 12/25/19 Range/Units 22:30 RBC (4.30-5.90) m/uL Hgb (13.0-17.5) gm/dL Hct (39.0-53.0) % MCV (80.0-100.0) fL RDW (11.5-15.5) % Macrocytosis PT (9.0-12.0) sec INR (<1.2) Sodium (137-145) mmol/L BUN (9-20) mg/dL Creatinine (0.66-1.25) mg/dL Glucose (74-99) mg/dL Plasma Lactic Acid Jhonny 2.2 H* (0.7-2.0) mmol/L Total Protein (6.3-8.2) g/dL Thrombosis Risk Factor Assmnt - Choose All That Apply Any of the Below Risk Factors Present?: Yes Each Factor Represents 1 point: Abnormal pulmonary function (COPD), Heart failure (<1month) Other Risk Factors: Yes Each Risk Factor Represents 2 Points: Age 61-74 years, Malignancy Other congenital or acquired thrombophilia - If yes, enter type in comment: No Thrombosis Risk Factor Assessment Total Risk Factor Score: 6 Thrombosis Risk Factor Assessment Level: High Risk Assessment and Plan Plan: -Acute on chronic hypoxic respiratory failure most probably secondary to pulmonary fibrosis flare up or exacerbation patient improved with inhalational breathing treatments may add require steroids but will get the opinion of glass setter. My suspicion is low that patient isn't in CHF exacerbation but patient can easily go into CHF to 2 lactic is doses temporally holding off on Lasix which will be resumed from tomorrow. He doesn't have any COPD exacerb ation -COPD without any acute exacerbation -Chronic diastolic dysfunction without any acute exacerbation -Hypothyroidism -Atrial fibrillation paroxysmal A. fib
[2019-12-26] MEDS: traMADol 50 MG TAB PO PRN (16:19)
[2019-12-26] MEDS: MAGNESIUM OXIDE 400 MG TAB PO SCH (16:19)
[2019-12-26] MEDS: FOLIC ACID 1 MG TAB PO SCH (16:19)
[2019-12-26] MEDS ORDERED: NON FORMULARY DRUG (Glucerna Shake 1 CAN) PO SCH (17:00)
[2019-12-26] MEDS: ATORVASTATIN 40 MG TAB PO SCH (21:34)
[2019-12-27] MEDS: BENZOCAINE/MENTHOL LOZENG 1 EACH LOZENGE MUCOUS MEM PRN ×2 (00:12→23:01)
[2019-12-27] MEDS: DILTIAZEM ORAL 30 MG TAB PO SCH ×3 (05:52→21:11)
[2019-12-27] MEDS: LEVOTHYROXINE 88 MCG TAB PO SCH (05:52)
[2019-12-27] MEDS: PANTOPRAZOLE 40 MG TABLET PO SCH (05:52)
[2019-12-27] MEDS: DIVALPROEX 250 MG TABLET.DR PO SCH ×3 (05:52→21:11)
[2019-12-27] MEDS ORDERED: FUROSEMIDE 20 MG TAB PO SCH (06:00)
[2019-12-27] MEDS: PARoxetine 10 MG TAB PO SCH (07:33)
[2019-12-27] MEDS: MONTELUKAST 10 MG TAB PO SCH (07:33)
[2019-12-27] MEDS: METOPROLOL SUCCINATE (ER) 25 MG TAB.ER.24H PO SCH (07:33)
[2019-12-27 07:51] LABS: Calcium 8.6 mg/dL (8.4-10.2); Potassium 3.7 mmol/L (3.5-5.1)
[2019-12-27] MEDS: IPRATROPIUM-ALBUTEROL 3 ML NEB INHALATION PRN ×3 (08:32→15:28)
[2019-12-27] MEDS: SYMBICORT 160-4.5 MCG INHALER INHALATION SCH ×2 (08:32→19:32)
[2019-12-27] MEDS: FUROSEMIDE 10 MG/ML 4 ML VIAL IV SCH ×2 (09:14→21:10)
--- NOTE | 2019-12-27 09:41 | P.CRDCN ---
History of Present Illness History of present illness: HISTORY OF PRESENTING ILLNESS This is a pleasant 69-year-old male past medical history significant for chronic persistent atrial fibrillation not on terminal worker anticoagulation secondary to GI bleeding, chronic diastolic heart failure, hypertension, COPD with chronic respiratory failure on home oxygen, CVA in the past, seizure disorder, dyslipidemia and former nicotine dependence. He follows in the office with Dr Cotton. We have been asked to see in consultation for shortness of breath. He is seen and examined sitting on the edge of the bed. He states recently over the previous one week his breathing has become more and more labored. He is also coughing up dark thick sputum. He denies fever or chills. He has no chest pain, dizziness or palpitations. He was recently admitted in October of this year for symptomatic orthostatic hypotension. On that admission zaroxolyn was discontinued and lasix was decreased from 40 BID to 20 BID. DIAGNOSTICS EKG reveals atrial fibrillation heart rate 97. Chest xray advanced pulmonary fibrosis. Laboratory reviewed, WBC 5.7, hemoglobin 7, platelets 157, INR 1.2, sodium 138, potassium 3.7, creatinine 1.32 with a GFR 54, lactic acid on admission 2.2 after hydration 1.7, cardiac enzymes negative 1 and and 2 proBNP 16,300. Current cardiac medications include midodrine 2.5 mg 3 times a day, diltiazem 30 mg 3 times a day, Lasix 20 mg twice a day, Toprol 25 mg daily and atorvastatin 40 mg at bedtime. Most recent echocardiogram obtained October 2018 reveals preserved LV systolic function with ejection fraction 60-65%. REVIEW OF SYSTEMS At the time of my exam: CONSTITUTIONAL: Denies fever or chills. CARDIOVASCULAR: Complains of shortness of breath. Denies chest pain,orthopnea, PND or palpitations. RESPIRATORY: Complains of cough. GASTROINTESTINAL: Denies abdominal pain, diarrhea, constipation, nausea or vomiting. MUSCULOSKELETAL: Denies myalgias. NEUROLOGIC: Denies numbness, tingling or weakness. ENDOCRINE: Denies fatigue, weight change, polydipsia or polyurina. GENITOURINARY: Denies burning, hematuria or urgency with micturation. HEMATOLOGIC: Denies history of anemia or bleeding. PHYSICAL EXAMINATION Blood pressure 119/65 heart rate 93 afebrile and maintaining oxygen saturation on nasal cannula. CONSTITUTIONAL: No apparent distress. Frail. HEENT: Head is normocephalic. Pupils are equal, round. Sclerae anicteric. Mucous membranes of the mouth are moist. No JVD. No carotid bruit. CHEST EXAMINATION: Bibasilar rales, scattered rhonchi, diminished bilaterally. No chest wall tenderness is noted on palpation or with deep breathing. HEART EXAMINATION: Irregular rate and rhythm. S1, S2 heard. No murmurs, gallops or rub. ABDOMEN: Soft, nontender. Positive bowel sounds. EXTREMITIES: 2+ peripheral pulses, no lower extremity edema and no calf tenderness. NEUROLOGIC EXAMINATION: Patient is awake, alert and oriented x3. ASSESSMENT Shortness of breath; multifactorial related to acute on chronic diastolic heart failure as well as exacerbation of COPD and pulmonary fibrosis. Chronic persistent atrial fibrillation not on fdc anticoagulation secondary to GI bleeding and chronic anemia Anemia COPD on home oxygen Pulmonary fibrosis Dyslipidemia History of seizure disorder Chronic kidney disease PLAN Initiate IV Lasix 40 mg twice a day for 24 hours. Depending on how he feels in the morning will likely resume oral at a slightly higher dose. Repeat 2D echocardiogram and doppler study to assess cardiac structure and function. Follow renal function and electrolytes in the morning. Document accurate intake and output along with daily weights. We will continue to follow and make recommendations accordingly. Thank you kindly for this consultation. Nurse Practitioner note has been reviewed, I agree with a documented findings and plan of care. Patient was seen and examined. 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 R hip disorder/cast and brace for 2 years as a child, chronic low back pain, DDD, vertebral fractures, past L hand laceration with slight decreased ROM, RLS, hypothyroid. Last Myocardial Infarction Date:: about 1987-pt was in his 40s History of Any Multi-Drug Resistant Organisms: None Reported, C-DIFF Date of last positivie culture/infection: 10/23/18 MDRO Source:: stool Past Surgical History: Orthopedic Surgery Additional Past Surgical History / Comment(s): 2014 colonoscopy/lap sigmoid colectomy, colonoscopies, 2017 bronch/biopsy/pneumo with chest tube/L upper lobe wedge resection, L hand laceration with surgical repair, bilateral cataract removals/lens implants. Past Anesthesia/Blood Transfusion Reactions: No Reported Reaction Additional Past Anesthesia/Blood Transfusion Reaction / Comment(s): Pt has r eceived blood in past without reaction. Smoking Status: Former smoker - Past Family History Father Family Medical History: CVA/TIA Mother Family Medical History: Cancer Additional Family Medical History / Comment(s): Lung cancer-pt states d/t chemical exposure. Medications and Allergies Home Medications Medication Instructions Recorded Confirmed Type Budesonide-Formot 160-4.5 Mcg 2 puff INHALATION RT-BID@0800,1700 05/22/14 12/25/19 History [Symbicort 160-4.5 Mcg Inhaler] Bisacodyl [Dulcolax] 10 mg RECTAL DAILY PRN 04/03/17 12/25/19 History Calcium Carbonate [Tums] 500 mg PO Q8H PRN 04/03/17 12/25/19 History Nitroglycerin Sl Tabs [Nitrostat] 0.4 mg SUBLINGUAL Q5M PRN #20 tab 04/05/17 12/25/19 Rx Acetaminophen [Tylenol] 650 mg PO Q6H PRN 10/20/18 12/25/19 History Folic Acid 1 mg PO DAILY@169910/20/18 12/25/19 History Magnesium Oxide 400 mg PO DAILY@169910/20/18 12/25/19 History Montelukast [Singulair] 10 mg PO DAILY@0800 10/20/18 12/25/19 History Na Phos,M-B/Na Phos,Di-Ba [Fleet 133 ml RECTAL DAILY PRN 10/20/18 12/25/19 History Adult] Potassium Chloride ER [K-Dur 20] 30 meq PO DAILY@0800 10/20/18 12/25/19 History Atorvastatin [Lipitor] 40 mg PO HS@2100 10/31/19 12/25/19 History Diltiazem Oral [Cardizem*] 30 mg PO TID@0600,1400,2200 10/31/19 12/25/19 History Divalproex [Depakote] 250 mg PO TID@0600,1400,219910/31/19 12/25/19 History Ipratropium-Albuterol Nebulize 3 ml INHALATION RT-QID PRN 10/31/19 12/25/19 History [Duoneb 0.5 mg-3 mg/3 ml Soln] Kenalog-40 Suspension 1 ml INTRAARTIC ONCE PRN 10/31/19 12/25/19 History Levothyroxine Sodium [Synthroid] 88 mcg PO DAILY@0600 10/31/19 12/25/19 History Lidocaine 2% Soultion 2 ml INTRAARTIC ONCE PRN 10/31/19 12/25/19 History Magnesium Hydroxide [Milk of 7,200 mg PO Q48H PRN 10/31/19 12/25/19 History Magnesia Concentrate] Omeprazole [PriLOSEC] 40 mg PO DAILY@0600 10/31/19 12/25/19 History PARoxetine [Paxil] 10 mg PO DAILY@0800 10/31/19 12/25/19 History Saccharomyces Boulardii 250mg 1 cap PO BID@0800,1700 10/31/19 12/25/19 History Capsule Sodium Chloride [[place]] 1 spray EA NOSTRIL Q1H PRN 10/31/19 12/25/19 History rOPINIRole HCL [Requip] 0.5 mg PO TID@0800,1400,2200 10/31/19 12/25/19 History Metoprolol Succinate [Toprol XL] 25 mg PO DAILY@0800 11/07/19 12/25/19 History traMADol HCL 50 mg PO Q6H PRN #12 tab 11/09/19 12/25/19 Rx Ferrous Sulfate [Iron] 325 mg PO BID@0800,1700 12/25/19 12/25/19 History Furosemide [Lasix] 20 mg PO BID@0600,1400 12/25/19 12/25/19 History Glucerna Shake 1 can PO TID@0800,1200,1700 12/25/19 12/25/19 History Melatonin 5 mg PO HS@2130 12/25/19 12/25/19 History Midodrine HCl [ProAmantine] 2.5 mg PO TID@0700,1200,1700 PRN 12/25/19 12/25/19 History Allergies Allergy/AdvReac Type Severity Reaction Status Date / Time phenobarbital Allergy Unknown Hallucinati Verified 12/25/19 22:38 ons Physical Exam Vitals: Vital Signs Temp Pulse Pulse Resp BP BP Pulse Ox 12/27/19 08:41 93 12/27/19 08:32 92 12/27/19 07:00 98.1 F 87 20 119/65 91 L 12/27/19 05:50 75 128/58 12/27/19 01:04 98.2 F 92 17 137/67 94 L 12/26/19 23:48 22 12/26/19 21:33 95 24 176/77 95 12/26/19 19:16 97.6 F 88 18 159/77 93 L 12/26/19 15:00 97.8 F 108 H 18 136/69 99 12/26/19 14:40 101 H 17 117/73 100 12/26/19 10:43 98 19 118/65 97 Intake and Output 12/26/19 12/27/19 12/27/19 22:59 06:59 14:59 Output Total 350 150 Balance -350 -150 Output: Urine 350 150 Other: Voiding Method Urinal Urinal # Voids 1 1 Results 12/25/19 22:30 12/27/19 07:23 Comprehensive Metabolic Panel 12/27/19 Range/Units 07:23 Sodium 138 (137-145) mmol/L Potassium 3.7 (3.5-5.1) mmol/L Chloride 105 (98-107) mmol/L Carbon Dioxide 24 (22-30) mmol/L BUN 31 H (9-20) mg/dL Creatinine 1.32 H (0.66-1.25) mg/dL Glucose 98 (74-99) mg/dL Calcium 8.6 (8.4-10.2) mg/dL Current Medications Generic Name Dose Route Start Last Admin Trade Name Freq PRN Reason Stop Dose Admin Acetaminophen 650 mg 12/26/19 00:21 Tylenol Tab PO Q6H PRN Pain Albuterol/Ipratropium 3 ml 12/26/19 00:21 12/27/19 08:32 Duoneb 0.5 Mg-3 Mg/3 Ml Soln INHALATION 3 ml RT-QID PRN Administration Shortness Of Breath Or Wheezing Atorvastatin Calcium 40 mg 12/26/19 21:00 12/26/19 21:34 Lipitor PO 40 mg HS@2100 RADHA Administration Benzocaine/Menthol 1 each 12/26/19 23:52 12/27/19 00:12 Cepacol Lozenge MUCOUS MEM 1 each Q4HR PRN Administration Sore Throat Bisacodyl 10 mg 12/26/19 00:21 Dulcolax RECTAL DAILY PRN Constipation Budesonide/Formoterol Fumarate 2 puff 12/26/19 08:00 12/27/19 08:32 Symbicort 160-4.5 Mcg Inhaler INHALATION 2 puff RT-BID@0800,1700 RADHA Administration Diltiazem HCl 30 mg 12/26/19 06:00 12/27/19 05:52 Cardizem Oral PO 30 mg TID@0600,1400,2200 RADHA Administration Divalproex Sodium 250 mg 12/26/19 06:00 12/27/19 05:52 Depakote PO 250 mg TID@0600,1400,2200 RADHA Administration Folic Acid 1 mg 12/26/19 17:00 12/26/19 16:19 Folic Acid PO 1 mg DAILY@1700 RADHA Administration Furosemide 40 mg 12/27/19 09:00 12/27/19 09:14 Lasix IV 40 mg Q12HR RADHA Administration Levothyroxine Sodium 88 mcg 12/26/19 06:00 12/27/19 05:52 Synthroid PO 88 mcg DAILY@0600 RADHA Administration Magnesium Oxide 400 mg 12/26/19 17:00 12/26/19 16:19 Mag-Ox PO 400 mg DAILY@1700 RADHA Administration Melatonin 5 mg 12/26/19 14:35 Melatonin PO HS@2130 PRN Insomnia Metoprolol Succinate 25 mg 12/26/19 08:00 12/27/19 07:33 Toprol Xl PO 25 mg DAILY@0800 RADHA Administration Midodrine 2.5 mg 12/26/19 07:00 Proamatine PO TID@0700,1200,1700 PRN HOLD IF SBP >OR= 145 Montelukast Sodium 10 mg 12/26/19 08:00 12/27/19 07:33 Singulair PO 10 mg DAILY@0800 RADHA Administration Naloxone HCl 0.2 mg 12/26/19 00:19 Narcan IV Q2M PRN Opioid Reversal Nitroglycerin 0.4 mg 12/26/19 14:35 12/26/19 16:20 Nitrostat SUBLINGUAL 0.4 mg Q5M PRN Administration Chest Pain Pantoprazole Sodium 40 mg 12/26/19 06:00 12/27/19 05:52 Protonix PO 40 mg DAILY@0600 RADHA Administration Paroxetine HCl 10 mg 12/27/19 08:00 12/27/19 07:33 Paxil PO 10 mg DAILY@0800 RADHA Administration Ropinirole HCl 0.5 mg 12/26/19 08:00 12/27/19 07:33 Requip PO 0.5 mg TID@0800,1400,2200 RADHA Administration Sodium Biphosphate/Sodium Phosphate 133 ml 12/26/19 14:35 Fleet Adult RECTAL DAILY PRN Constipation Tramadol HCl 50 mg 12/26/19 06:00 12/26/19 16:19 Ultram PO 50 mg Q6H PRN Administration Moderate Pain Intake and Output 12/26/19 12/27/19 12/27/19 22:59 06:59 14:59 Output Total 350 150 Balance -350 -150 Output: Urine 350 150 Other: Voiding Method Urinal Urinal # Voids 1 1 12/25/19 22:30 12/27/19 07:23
--- NOTE | 2019-12-27 11:38 | ECHOF ---
Referral Reason:sob MEASUREMENTS -------- HEIGHT: 152.4 cm WEIGHT: 62.1 kg BP: RVIDd: 2.6 cm (< 3.3) IVSd: 1.2 cm (0.6 - 1.1) LVIDd: 4.2 cm (3.9 - 5.3) LVPWd: 1.3 cm (0.6 - 1.1) IVSs: 1.4 cm LVIDs: 3.3 cm LVPWs: 1.6 cm LA Diam: 5.0 cm (2.7 - 3.8) LAESV Index (A-L): 61.16 ml/m Ao Diam: 3.2 cm (2.0 - 3.7) AV Cusp: 1.1 cm (1.5 - 2.6) LA Diam: 4.5 cm (2.7 - 3.8) MV EXCURSION: 20.130 mm (> 18.000) MV EF SLOPE: 171 mm/s (70 - 150) EPSS: 0.3 cm MV E Lee: 1.04 m/s MV DecT: 90 ms MV A Lee: 0.31 m/s MV E/A Ratio: 3.39 RAP: 5.00 mmHg RVSP: 12.23 mmHg FINDINGS -------- Atrial fibrillation. This was a technically adequate study. The left ventricular size is normal. There is moderate concentric left ventricular hypertrophy. O verall left ventricular systolic function is normal with, an EF between 55 - 60 %. The right ventricle is normal in size. LA is severely dilated >40 ml/m2 The right atrial size is normal. There is mild aortic valve sclerosis. Trace to mild aortic regurgitation. Mild mitral annular calcification present. Mild mitral regurgitation is present. Mild tricuspid regurgitation present. Right ventricular systolic pressure is normal at < 35 mmHg. There is no pulmonic regurgitation present. The aortic root size is normal. There is no pericardial effusion. CONCLUSIONS -------- 1. There is moderate concentric left ventricular hypertrophy. 2. Overall left ventricular systolic function is normal with, an EF between 55 - 60 %. 3. LA is severely dilated >40 ml/m2 4. There is mild aortic valve sclerosis. 5. Trace to mild aortic regurgitation. 6. Mild mitral annular calcification present. 7. Mild mitral regurgitation is present. 8. Mild tricuspid regurgitation present. 9. There is no pulmonic regurgitation present. 10. There is no pericardial effusion. GLAZING SUPERINTENDENT: Jacklyn Aguilar RDCS
--- NOTE | 2019-12-27 12:59 | P.PN ---
Subjective Progress Note Date: 12/27/19 Principal diagnosis: 69-year-old male well-known to me from his previous hospitalization came in with compensative shortness of breath denied any orthopnea paroxysmal nocturnal dys pnea comparing of cough with whitish sputum production patient has multiple medical problems including chronic diastolic dysfunction, patient chest x-ray showing pulmonary fibrosis does have elevated BNP of around 16,000 but doesn't have any JVD, no pedal edema. No orthopnea or paroxysmal nocturnal dyspnea. Patient also has history of COPD and interstitial pulmonary fibrosis patient does have diffuse fine crackles consistent with pulmonary fibrosis and patient had history of lung cancer which is in remission since 2014 patient has chronic respiratory failure uses 3 days of onset at home patient does have chronic kidney disease with creatinine of around 1.5 at baseline presently and close to the same level patient had lactic acidosis which improved now. Patient denied any fever chills. Patient is on 6 L now his oxygen saturation [place] requirements have come down to 4 L patient has no wheezing on exam 12/27/2019 Patient is seen and evaluated in follow-up and states his shortness of breath has slightly improved although continues to be dyspneic with exertion. Patient started IV Lasix and will monitor closely. Current creatinine today is 1.32. Sodium is 138. Lactic acid improved and is 1.7. Patient denies any chest pain, palpitations, or dizziness. Patient is afebrile. No reports of nausea or vomiting and patient is tolerating diet. Cardiology also following and pulmo shanna consulted and is pending. Patient remains on bronchodilators and will continue at this time. Objective - Vital Signs Vital signs: Vital Signs Temp 98.1 F 12/27/19 07:00 Pulse 95 12/27/19 11:40 Resp 20 12/27/19 07:00 BP 119/65 12/27/19 07:00 Pulse Ox 91 L 12/27/19 07:00 Intake & Output 12/26/19 12/27/19 12/27/19 18:59 06:59 18:59 Output Total 500 Balance -500 Weight 62.142 kg 61.4 kg Output: Urine 500 Other: Voiding Method Urinal Urinal # Voids 1 - Exam GENERAL: The patient is alert and oriented x3, not in any acute distress. Well developed, well nourished. HEENT: Pupils are round and equally reacting to light. EOMI. No scleral icterus. No conjunctival pallor. Normocephalic, atraumatic. No pharyngeal erythema. No thyromegaly. CARDIOVASCULAR: S1 and S2 present. No murmurs, rubs, or gallops. PULMONARY: Diminished breath sounds bilaterally with Bilateral fine crackles noted on exam. ABDOMEN: Soft, nontender, nondistended, normoactive bowel sounds. No palpable organomegaly. MUSCULOSKELETAL: No joint swelling or deformity. EXTREMITIES: No cyanosis, clubbing, or pedal edema. NEUROLOGICAL: Gross neurological examination did not reveal any focal deficits. SKIN: No rashes. - Labs CBC & Chem 7: 12/25/19 22:30 07 07:23 Labs: Abnormal Lab Results - Last 24 Hours (Table) 12/27/19 Range/Units 07:23 BUN 31 H (9-20) mg/dL Creatinine 1.32 H (0.66-1.25) mg/dL Microbiology - Last 24 Hours (Table) 12/25/19 22:30 Blood Culture - Preliminary Blood No Growth after 24 hours Assessment and Plan Assessment: -Acute on chronic hypoxic respiratory failure most probably secondary to pulmonary fibrosis flare up or exacerbation patient improved with inhalational breathing treatments. Pulmonary consulted and pending. -COPD without any acute exacerbation -Chronic diastolic dysfunction without any acute exacerbation, EF 55-60% -Hypothyroidism -Atrial fibrillation paroxysmal A. fib -Hypertension -hyperlipidemia -Coronary artery disease -Seizure disorder Plan: Continue current medications, management, and symptomatic treatment. Cardiology following. Pulmonary consulted and pending at this time. Patient underwent echo showing overall left ventricular systolic function is normal with an EF between 55 and 60% with some mild mitral and tricuspid regurgitation present. Patient's current creatinine is 1.32 and trending down. Will repeat labs and monitor closely as patient is now on IV Lasix. Social work following this patient will be returning to [facility] once stabilized discharge. Further recommendations to follow.
--- NOTE | 2019-12-27 15:14 | P.CNPUL ---
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 difficile colitis history of recurrent pneumonia along with end-stage lung disease, patient has a history of lung cancer status post wedge resection from the left side, patient is a resident of extended care facility he was noted to be more short of breath coughing along with the fever by the staff sent to the emergency department for further evaluation, so far blood cultures have been negative, chest x-ray significant for end-stage severe COPD along with some component of lung fibrosis Review of Systems All systems: negative Past Medical History Past Medical History: Atrial Fibrillation, Asthma, Cancer, Chest Pain / Angina, COPD, CVA/TIA, GERD/Reflux, GI Bleed, Hyperlipidemia, Hypertension, Myocardial Infarction (RI), Musculoskeletal Disorder, Osteoarthritis (OA), Pneumonia, Renal Disease, Respiratory Disorder, Seizure Disorder, Syncope, Thyroid Disorder, Vascular Disorder Additional Past Medical History / Comment(s): Chronic respiratory failure with O2 at 3L/NC ATC, pulmonary fibrosis, chronic interstitial lung changes, 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 R hip disorder/cast and brace for 2 years as a child, chronic low back pain, DDD, vertebral fractures, past L hand laceration with slight decreased ROM, RLS, hypothyroid. Last Myocardial Infarction Date:: about 1987-pt was in his 40s History of Any Multi-Drug Resistant Organisms: None Reported, C-DIFF Date of last positivie culture/infection: 10/23/18 MDRO Source:: stool Past Surgical History: Orthopedic Surgery Additional Past Surgical History / Comment(s): 2014 colonoscopy/lap sigmoid colectomy, colonoscopies, 2017 bronch/biopsy/pneumo with chest tube/L upper lobe wedge resection, L hand laceration with surgical repair, bilateral cataract removals/lens implants. Past Anesthesia/Blood Transfusion Reactions: No Reported Reaction Additional Past Anesthesia/Blood Transfusion Reaction / Comment(s): Pt has received blood in past without reaction. Smoking Status: Former smoker - Past Family History Father Family Medical History: CVA/TIA Mother Family Medical History: Cancer Additional Family Medical History / Comment(s): Lung cancer-pt states d/t chemical exposure. Medications and Allergies Home Medications Medication Instructions Recorded Confirmed Type Budesonide-Formot 160-4.5 Mcg 2 puff INHALATION RT-BID@0800,1700 05/22/14 12/25/19 History [Symbicort 160-4.5 Mcg Inhaler] Bisacodyl [Dulcolax] 10 mg RECTAL DAILY PRN 04/03/17 12/25/19 History Calcium Carbonate [Tums] 500 mg PO Q8H PRN 04/03/17 12/25/19 History Nitroglycerin Sl Tabs [Nitrostat] 0.4 mg SUBLINGUAL Q5M PRN #20 tab 04/05/1702/05 Rx Acetaminophen [Tylenol] 650 mg PO Q6H PRN 10/20/18 12/25/19 History Folic Acid 1 mg PO DAILY@169910/20/18 12/25/19 History Magnesium Oxide 400 mg PO DAILY@169910/20/18 12/25/19 History Montelukast [Singulair] 10 mg PO DAILY@0800 10/20/18 12/25/19 History Na Phos,M-B/Na Phos,Di-Ba [Fleet 133 ml RECTAL DAILY PRN 10/20/18 12/25/19 History Adult] Potassium Chloride ER [K-Dur 20] 30 meq PO DAILY@0800 10/20/18 12/25/19 History Atorvastatin [Lipitor] 40 mg PO HS@2100 10/31/19 12/25/19 History Diltiazem Oral [Cardizem*] 30 mg PO TID@0600,1400,2200 10/31/19 12/25/19 History Divalproex [Depakote] 250 mg PO TID@0600,1400,2200 10/31/19 12/25/19 History Ipratropium-Albuterol Nebulize 3 ml INHALATION RT-QID PRN 10/31/19 12/25/19 History [Duoneb 0.5 mg-3 mg/3 ml Soln] Kenalog-40 Suspension 1 ml INTRAARTIC ONCE PRN 10/31/19 12/25/19 History Levothyroxine Sodium [Synthroid] 88 mcg PO DAILY@0600 10/31/19 12/25/19 History Lidocaine 2% Soultion 2 ml INTRAARTIC ONCE PRN 10/31/19 12/25/19 History Magnesium Hydroxide [Milk of 7,200 mg PO Q48H PRN 10/31/19 12/25/19 History Magnesia Concentrate] Omeprazole [PriLOSEC] 40 mg PO DAILY@0600 10/31/19 12/25/19 History PARoxetine [Paxil] 10 mg PO DAILY@0800 10/31/19 12/25/19 History Saccharomyces Boulardii 250mg 1 cap PO BID@0800,1700 10/31/19 12/25/19 History Capsule Sodium Chloride [Mercer] 1 spray EA NOSTRIL Q1H PRN 10/31/19 12/25/19 History rOPINIRole HCL [Requip] 0.5 mg PO TID@0800,1400,2200 10/31/19 12/25/19 History Metoprolol Succinate [Toprol XL] 25 mg PO DAILY@0800 11/07/19 12/25/19 History traMADol HCL 50 mg PO Q6H PRN #12 tab 11/09/19 12/25/19 Rx Ferrous Sulfate [Iron] 325 mg PO BID@0800,1700 12/25/19 12/25/19 History Furosemide [Lasix] 20 mg PO BID@0600,1400 12/25/19 12/25/19 History Glucerna Shake 1 can PO TID@0800,1200,1700 12/25/19 12/25/19 History Melatonin 5 mg PO HS@2130 12/25/19 12/25/19 History Midodrine HCl [ProAmantine] 2.5 mg PO TID@0700,1200,1700 PRN 12/25/19 12/25/19 History Allergies Allergy/AdvReac Type Severity Reaction Status Date / Time phenobarbital Allergy Unknown Hallucinati Verified 12/25/19 22:38 ons Physical Exam Vitals: Vital Signs Temp Pulse Pulse Resp BP Pulse Ox 12/27/19 11:40 95 12/27/19 11:30 94 12/27/19 08:41 93 12/27/19 08:32 92 12/27/19 07:00 98.1 F 87 20 119/65 91 L 12/27/19 05:50 75 128/58 12/27/19 01:04 98.2 F 92 17 137/67 94 L 12/26/19 23:48 22 12/26/19 21:33 95 24 176/77 95 12/26/19 19:16 97.6 F 88 18 159/77 93 L Intake and Output 12/27/19 12/27/19 12/27/19 06:59 14:59 22:59 Output Total 150 Balance -150 Output: Urine 150 Other: Voiding Method Urinal # Voids 1 Weight 61.4 kg - Constitutional General appearance: average body habitus, cooperative, disheveled - EENT Eyes: PERRLA ENT: hard of hearing Ears: bilateral: normal - Neck Neck: normal ROM Carotids: bilateral: upstroke normal - Respiratory Respiratory: bilateral: diminished - Cardiovascular Rhythm: regular Heart sounds: normal: S1, S2 - Gastrointestinal General gastrointestinal: decreased bowel sounds - Neurologic Neurologic: CNII-XII intact - Musculoskeletal Musculoskeletal: gait normal, generalized weakness, strength equal bilaterally - Psychiatric Psychiatric: A&O x's 3, appropriate affect, intact judgment & insight Results - Laboratory Findings CBC and BMP: 12/25/19 22:30 12/27/19 07:23 PT/INR, D-dimer PT 12.2 sec (9.0-12.0) H 12/25/19 22:30 INR 1.2 (<1.2) H 12/25/19 22:30 Abnormal lab findings: Abnormal Labs 12/25/19 12/25/19 12/25/19 22:30 22:30 22:30 RBC 2.02 L Hgb 7.0 L Hct 22.0 L MCV 109.1 H RDW 24.5 H Macrocytosis Marked A PT 12.2 H INR 1.2 H Sodium 136 L BUN 39 H Creatinine 1.55 H Glucose 130 H Plasma Lactic Acid Jhonny Total Protein 5.9 L 12/25/19 12/27/19 22:30 07:23 RBC Hgb Hct MCV RDW Macrocytosis PT INR Sodium BUN 31 H Creatinine 1.32 H Glucose Plasma Lactic Acid Jhonny 2.2 H* Total Protein - Diagnostic Findings Chest x-ray: report reviewed, image reviewed (Finding as noted above) Assessment and Plan Assessment: Acute COPD exacerbation Acute on chronic hypoxic respiratory failure Chronic diastolic heart failure Chronic atrial fibrillation proximal History of lung cancer status post resection followed by XRT and chemo Plan: Continue antibiotics along with breathing treatments steroids continue s upportive care increase activity as tolerated follow clinical course closely further recommendations pending plan of care as per clinical response of the patient Time with Patient: Greater than 30
[2019-12-27] MEDS: FOLIC ACID 1 MG TAB PO SCH (17:20)
[2019-12-27] MEDS: MAGNESIUM OXIDE 400 MG TAB PO SCH (17:20)
[2019-12-27] MEDS: ATORVASTATIN 40 MG TAB PO SCH (21:10)
[2019-12-28] MEDS: traMADol 50 MG TAB PO PRN ×2 (00:17→10:25)
[2019-12-28] MEDS: IPRATROPIUM-ALBUTEROL 3 ML NEB INHALATION PRN ×2 (03:12→08:29)
[2019-12-28] MEDS: LEVOTHYROXINE 88 MCG TAB PO SCH (06:08)
[2019-12-28] MEDS: PANTOPRAZOLE 40 MG TABLET PO SCH (06:08)
[2019-12-28] MEDS: DILTIAZEM ORAL 30 MG TAB PO SCH ×2 (06:09→13:23)
[2019-12-28] MEDS: DIVALPROEX 250 MG TABLET.DR PO SCH ×2 (06:09→13:23)
[2019-12-28 08:06] LABS: Calcium 8.8 mg/dL (8.4-10.2); Potassium 3.5 mmol/L (3.5-5.1)
[2019-12-28] MEDS: FUROSEMIDE 10 MG/ML 4 ML VIAL IV SCH (08:08)
[2019-12-28] MEDS: MONTELUKAST 10 MG TAB PO SCH (08:08)
[2019-12-28] MEDS: METOPROLOL SUCCINATE (ER) 25 MG TAB.ER.24H PO SCH (08:08)
[2019-12-28] MEDS: PARoxetine 10 MG TAB PO SCH (08:10)
[2019-12-28 08:21] VITALS: RESP 18
[2019-12-28] MEDS: SYMBICORT 160-4.5 MCG INHALER INHALATION SCH (08:29)
--- NOTE | 2019-12-28 10:44 | P.PN ---
Subjective Progress Note Date: 12/28/19 Principal diagnosis: Acute COPD exacerbation Acute on chronic hypoxic respiratory failure Chronic diastolic heart failure Chronic atrial fibrillation proximal History of lung cancer status post resection followed by XRT and chemo 12/28/2019, patient breathing relatively better denies any cough or sputum production sitting upright on the bed, denies any hemoptysis, oxygen saturation is stable on 4 L oxygen, no swelling in the lower extremity appetite is stable This is a 69-year-old male well-known to be with end-stage lung disease secondary severe COPD emphysema history of heart failure C. difficile colitis history of recurrent pneumonia along with end-stage lung disease, patient has a history of lung cancer status post wedge resection from the left side, patient is a resident of extended care facility he was noted to be more short of breath coughing along with the fever by the staff sent to the emergency department for further evaluation, so far blood cultures have been negative, chest x-ray significant for end-stage severe COPD along with some component of lung fibrosis Objective - Vital Signs Vital signs: Vital Signs Temp 98.1 F 12/28/19 07:00 Pulse 80 12/28/19 08:44 Resp 18 12/28/19 08:20 BP 129/73 12/28/19 07:00 Pulse Ox 100 12/28/19 07:00 Intake & Output 12/27/19 12/28/19 12/28/19 18:59 06:59 18:59 Output Total 1200 400 Balance -1200 -400 Weight 61.4 kg 61.5 kg Output: Urine 1200 400 Other: Voiding Method Urinal Urinal Urinal # Voids 2 - Exam - Constitutional General appearance: average body habitus, cooperative, disheveled - EENT Eyes: PERRLA ENT: hard of hearing Ears: bilateral: normal - Neck Neck: normal ROM Carotids: bilateral: upstroke normal - Respiratory Respiratory: bilateral: diminished - Cardiovascular Rhythm: regular Heart sounds: normal: S1, S2 - Gastrointestinal General gastrointestinal: decreased bowel sounds - Neurologic Neurologic: CNII-XII intact - Musculoskeletal Musculoskeletal: gait normal, generalized weakness, strength equal bilaterally - Psychiatric Psychiatric: A&O x's 3, appropriate affect, intact judgment & insight - Labs CBC & Chem 7: 12/25/19 22:30 12/28/19 07:20 Labs: Abnormal Lab Results - Last 24 Hours (Table) 12/28/19 Range/Units 07:20 BUN 33 H (9-20) mg/dL Creatinine 1.36 H (0.66-1.25) mg/dL Glucose 120 H (74-99) mg/dL Microbiology - Last 24 Hours (Table) 12/25/19 22:30 Blood Culture - Preliminary Blood No Growth after 48 hours Assessment and Plan Assessment: Acute COPD exacerbation Acute on chronic hypoxic respiratory failure Chronic diastolic heart failure Chronic atrial fibrillation proximal History of lung cancer status post resection Plan: Continue antibiotics along with breathing treatments steroids continue supportive care increase activity as tolerated follow clinical course closely further recommendations pending plan of care as per clinical response of the patient Time with Patient: Greater than 30
--- NOTE | 2019-12-28 13:02 | XR ---
EXAMINATION TYPE: XR chest 1V DATE OF EXAM: 12/28/2019 HISTORY: Shortness of breath. COMPARISON: 12/25/2019 TECHNIQUE: Single view of the chest is submitted. FINDINGS: Demonstrated are scattered senescent parenchymal change. Nonspecific interstitial prominence is seen throughout both lung love greatest at the left lateral lung base and right upper lobe. There is also nodularity left upper lobe unchanged from prior study. Accounting for differences in technique no significant change is noted in the interval. The heart is stable. Hilar and mediastinal structures are within normal limits. Degenerative changes are seen of the dorsal spine. IMPRESSION: 1. Stable nonspecific chest.
--- NOTE | 2019-12-28 13:18 | P.DS ---
Providers Date of admission: 12/26/19 00:19 Attending physician: Beth Dunbar Consults: 12/26/19 00:20 Consult Physician Urgent Consulting Provider: [facility] Consult Reason/Comments: CHF, LAYO Do you want consulting provider notified?: Yes, Notify in am 12/26/19 14:34 Consult Physician Routine Consulting Provider: Rico Nazario Consult Reason/Comments: SOB Do you want consulting provider notified?: Yes Primary care physician: [facility] Course: 69-year-old male well-known to me from his previous hospitalization came in with compensative shortness of breath denied any orthopnea paroxysmal nocturnal dyspnea comparing of cough with whitish sputum production patient has multiple medical problems including chronic diastolic dysfunction, patient chest x-ray showing pulmonary fibrosis does have elevated BNP of around 16,000 but doesn't have any JVD, no pedal edema. No orthopnea or paroxysmal nocturnal dyspnea. Patient also has history of COPD and interstitial pulmonary fibrosis patient does have diffuse fine crackles consistent with pulmonary fibrosis and patient had history of lung cancer which is in remission since 2014 patient has chronic respiratory failure uses 3 days of onset at home patient does have chronic kidney disease with creatinine of around 1.5 at baseline presently and close to the same level patient had lactic acidosis which improved now. Patient denied any fever chills. Patient is on 6 L now his oxygen saturation [place] requirements have come down to 4 L patient has no wheezing on exam 12/27/2019 Patient is seen and evaluated in follow-up and states his shortness of breath has slightly improved although continues to be dyspneic with exertion. Patient started IV Lasix and will monitor closely. Current creatinine today is 1.32. S odium is 138. Lactic acid improved and is 1.7. Patient denies any chest pain, palpitations, or dizziness. Patient is afebrile. No reports of nausea or vomiting and patient is tolerating diet. Cardiology also following and pulmonary consulted and is pending. Patient remains on bronchodilators and will continue at this time. 12/28/2019 Patient is presently euvolemic at this time patient was switched to oral Lasix and will be discharged on oral Lasix today. Patient will be discharged on 40 mg oral twice a day of Lasix patient is an creatinine is 1.38 which is pretty much his baseline patient doesn't have any wheezing on exam and not require any systemic steroids at this time. He does have some oral thrush for which we'll use nystatin. We will cut down Arn[place] treated 2 L patient is saturating almost 100% on the 3 L at this time PHYSICAL EXAMINATION: GENERAL: The patient is alert and oriented x3, not in any acute distress. Well developed, well nourished. HEENT: Pupils are round and equally reacting to light. EOMI. No scleral icterus. No conjunctival pallor. Normocephalic, atraumatic. No pharyngeal erythema. No thyromegaly. CARDIOVASCULAR: S1 and S2 present. No murmurs, rubs, or gallops. PULMONARY: Chest is clear to auscultation, no wheezing or crackles. ABDOMEN: Soft, nontender, nondistended, normoactive bowel sounds. No palpable organomegaly. MUSCULOSKELETAL: No joint swelling or deformity. EXTREMITIES: No cyanosis, clubbing, or pedal edema. NEUROLOGICAL: Gross neurological examination did not reveal any focal deficits. SKIN: No rashes. Assessment and Plan Assessment: -Acute on chronic hypoxic respiratory failure most probably secondary CHF exacerbation patient has chronic diastolic dysfunction with acute exacerbation patient is presently euvolemic. Patient does have pulmonary fibrosis as well. He does have COPD -COPD without any acute exacerbation -Chronic diastolic dysfunction without any acute exacerbation, EF 55-60% -Hypothyroidism -Atrial fibrillation paroxysmal A. fib -Hypertension -hyperlipidemia -Coronary artery disease -Seizure disorder Patient Condition at Discharge: Serious Plan - Discharge Summary Discharge Rx Participant: No New Discharge Prescriptions: New Furosemide [Lasix] 40 mg PO BID #60 tablet Nystatin 100,000 Unit/ml Susp [Mycostatin Oral Susp] 500,000 unit PO QID #100 ml Continue Budesonide-Formot 160-4.5 Mcg [Symbicort 160-4.5 Mcg Inhaler] 2 puff INHALATION RT-BID@0800,1700 Calcium Carbonate [Tums] 500 mg PO Q8H PRN PRN Reason: Indigestion Bisacodyl [Dulcolax] 10 mg RECTAL DAILY PRN PRN Reason: Constipation Nitroglycerin Sl Tabs [Nitrostat] 0.4 mg SUBLINGUAL Q5M PRN #20 tab PRN Reason: Chest Pain Acetaminophen [Tylenol] 650 mg PO Q6H PRN PRN Reason: Pain Folic Acid 1 mg PO DAILY@1700 Magnesium Oxide 400 mg PO DAILY@1700 Montelukast [Singulair] 10 mg PO DAILY@0800 Na Phos,M-B/Na Phos,Di-Ba [Fleet Adult] 133 ml RECTAL DAILY PRN PRN Reason: Constipation Sodium Chloride [[place]] 1 spray EA NOSTRIL Q1H PRN PRN Reason: Congestion Magnesium Hydroxide [Milk of Magnesia Concentrate] 7,200 mg PO Q48H PRN PRN Reason: Constipation Lidocaine 2% Soultion 2 ml INTRAARTIC ONCE PRN PRN Reason: LEFT SHOULDER PAIN Kenalog-40 Suspension 1 ml INTRAARTIC ONCE PRN PRN Reason: LEFT SHOULDER PAIN Ipratropium-Albuterol Nebulize [Duoneb 0.5 mg-3 mg/3 ml Soln] 3 ml INHALATION RT-QID PRN PRN Reason: Shortness Of Breath Or Wheezing rOPINIRole HCL [Requip] 0.5 mg PO TID@0800,1400,2200 Diltiazem Oral [Cardizem*] 30 mg PO TID@0600,1400,2200 Divalproex [Depakote] 250 mg PO TID@0600,1400,2200 Saccharomyces Boulardii 250mg Capsule 1 cap PO BID@0800,1700 PARoxetine [Paxil] 10 mg PO DAILY@0800 Omeprazole [PriLOSEC] 40 mg PO DAILY@0600 Levothyroxine Sodium [Synthroid] 88 mcg PO DAILY@0600 Atorvastatin [Lipitor] 40 mg PO HS@2100 Ferrous Sulfate [Iron] 325 mg PO BID@0800,1700 Glucerna Shake 1 can PO TID@0800,1200,1700 Melatonin 5 mg PO HS@2130 Midodrine HCl [ProAmantine] 2.5 mg PO TID@0700,1200,1700 PRN PRN Reason: HOLD IF SBP >OR= 145 traMADol HCL 50 mg PO Q6H PRN #12 tab PRN Reason: Moderate Pain Changed Potassium Chloride ER [K-Dur 20] 20 meq PO BID #0 Metoprolol Succinate [Toprol XL] 50 mg PO DAILY@0800 #0 Discontinued Furosemide [Lasix] 20 mg PO BID@0600,1400 Discharge Medication List Budesonide-Formot 160-4.5 Mcg [Symbicort 160-4.5 Mcg Inhaler] 2 puff INHALATION RT-BID@0800,1700 05/22/14 [History] Bisacodyl [Dulcolax] 10 mg RECTAL DAILY PRN 04/03/17 [History] Calcium Carbonate [Tums] 500 mg PO Q8H PRN 04/03/17 [History] Nitroglycerin Sl Tabs [Nitrostat] 0.4 mg SUBLINGUAL Q5M PRN #20 tab 04/05/17 [Rx] Acetaminophen [Tylenol] 650 mg PO Q6H PRN 10/20/18 [History] Folic Acid 1 mg PO DAILY@169910/20/18 [History] Magnesium Oxide 400 mg PO DAILY@169910/20/18 [History] Montelukast [Singulair] 10 mg PO DAILY@79910/20/18 [History] Na Phos,M-B/Na Phos,Di-Ba [Fleet Adult] 133 ml RECTAL DAILY PRN 10/20/18 [History] Atorvastatin [Lipitor] 40 mg PO HS@2100 10/31/19 [History] Diltiazem Oral [Cardizem*] 30 mg PO TID@0600,1400,219910/31/19 [History] Divalproex [Depakote] 250 mg PO TID@0600,1400,219910/31/19 [History] Ipratropium-Albuterol Nebulize [Duoneb 0.5 mg-3 mg/3 ml Soln] 3 ml INHALATION RT-QID PRN 10/31/19 [History] Kenalog-40 Suspension 1 ml INTRAARTIC ONCE PRN 10/31/19 [History] Levothyroxine Sodium [Synthroid] 88 mcg PO DAILY@0610/31/19 [History] Lidocaine 2% Soultion 2 ml INTRAARTIC ONCE PRN 10/31/19 [History] Magnesium Hydroxide [Milk of Magnesia Concentrate] 7,200 mg PO Q48H PRN 10/31/19 [History] Omeprazole [PriLOSEC] 40 mg PO DAILY@0610/31/19 [History] PARoxetine [Paxil] 10 mg PO DAILY@0800 10/31/19 [History] Saccharomyces Boulardii 250mg Capsule 1 cap PO BID@0800,1700 10/31/19 [History] Sodium Chloride [[place]] 1 spray EA NOSTRIL Q1H PRN 10/31/19 [History] rOPINIRole HCL [Requip] 0.5 mg PO TID@0800,1400,2200 10/31/19 [History] Ferrous Sulfate [Iron] 325 mg PO BID@0800,1700 12/25/19 [History] Glucerna Shake 1 can PO TID@0800,1200,1700 12/25/19 [History] Melatonin 5 mg PO HS@2130 12/25/19 [History] Midodrine HCl [ProAmantine] 2.5 mg PO TID@0700,1200,1700 PRN 12/25/19 [History] Furosemide [Lasix] 40 mg PO BID #60 tablet 12/28/19 [Rx] Metoprolol Succinate [Toprol XL] 50 mg PO DAILY@0800 #0 12/28/19 [Rx] Nystatin 100,000 Unit/ml Susp [Mycostatin Oral Susp] 500,000 unit PO QID #100 ml 12/28/19 [Rx] Potassium Chloride ER [K-Dur 20] 20 meq PO BID #0 12/28/19 [Rx] traMADol HCL 50 mg PO Q6H PRN #12 tab 12/28/19 [Rx] Follow up Appointment(s)/Referral(s): Robin Scott, [NON-STAFF] - As Needed Sue Arellano MD [Primary Care Provider] - 1-2 days Rico Nazario MD [STAFF PHYSICIAN] - 1 Week
[2019-12-28] MEDS: NYSTATIN 100,000 UNIT/ML SUSP 500,000 UNIT/5 ML CUP PO SCH ×2 (13:22→17:21)
[2019-12-28 15:18] VITALS: BP 118/66; PULSE 107; TEMP 97.8
--- NOTE | 2019-12-28 15:24 | P.PN ---
Subjective Progress Note Date: 12/28/19 HISTORY OF PRESENTING ILLNESS This is a pleasant 69-year-old male past medical history significant for chronic persistent atrial fibrillation not on rat exterminator anticoagulation secondary to GI bleeding, chronic diastolic heart failure, hypertension, COPD with chronic respiratory failure on home oxygen, CVA in the past, seizure disorder, dyslipidemia and former nicotine dependence. He follows in the office with Dr Cotton. We have been asked to see in consultation for shortness of breath. He is seen and examined sitting on the edge of the bed. He states recently over the previous one week his breathing has become more and more labored. He is also coughing up dark thick sputum. He denies fever or chills. He has no chest pain, dizziness or palpitations. He was recently admitted in October of this year for symptomatic orthostatic hypotension. On that admission zaroxolyn was discontinued and lasix was decreased from 40 BID to 20 BID. DIAGNOSTICS EKG reveals atrial fibrillation heart rate 97. Chest xray advanced pulmonary fibrosis. Laboratory reviewed, WBC 5.7, hemoglobin 7, platelets 157, INR 1.2, sodium 138, potassium 3.7, creatinine 1.32 with a GFR 54, lactic acid on admission 2.2 after hydration 1.7, cardiac enzymes negative 1 and and 2 proBNP 16,300. Current cardiac medications include midodrine 2.5 mg 3 times a day, diltiazem 30 mg 3 times a day, Lasix 20 mg twice a day, Toprol 25 mg daily and atorvastatin 40 mg at bedtime. Most recent echocardiogram obtained October 2018 reveals preserved LV systolic function with ejection fraction 60-65%. 12/27: Patient states at the time of evaluation that his respiratory status is stable. He denies any shortness of breath at rest. He is complaining of thrush and nystatin will be added. He has been on IV Lasix which we will transition to oral Lasix at 40 mg twice daily. Echocardiogram revealed EF of 55-60% with moderate concentric left ventricular hypertrophy, LA severely dilated at greater than 40 ML/m2, mild aortic valve sclerosis, trace to mild aortic regurgitation, mild mitral regurgitation, mild tricuspid regurgitation. Patient is scheduled to return to [facility] today. PHYSICAL EXAMINATION Blood pressure 118/66, heart rate 107, pulse ox 97% on 3 L nasal cannula. CONSTITUTIONAL: No apparent distress. Frail. HEENT: Head is normocephalic. Pupils are equal, round. Sclerae anicteric. Mucous membranes of the mouth are moist. No JVD. No carotid bruit. CHEST EXAMINATION: Scattered rhonchi, diminished bilaterally. No chest wall tenderness is noted on palpation or with deep breathing. HEART EXAMINATION: Irregular rate and rhythm. S1, S2 heard. No murmurs, gallops or rub. ABDOMEN: Soft, nontender. Positive bowel sounds. EXTREMITIES: 2+ peripheral pulses, no lower extremity edema and no calf tenderness. NEUROLOGIC EXAMINATION: Patient is awake, alert and oriented x3. ASSESSMENT Shortness of breath; multifactorial related to acute on chronic diastolic heart failure as well as exacerbation of COPD and pulmonary fibrosis. Chronic persistent atrial fibrillation not on rat exterminator anticoagulation secondar y to GI bleeding and chronic anemia Anemia COPD on home oxygen Pulmonary fibrosis Dyslipidemia History of seizure disorder Chronic kidney disease PLAN Transition IV Lasix to oral 40 mg twice daily. Repeat 2D echocardiogram reviewed. Continue Lipitor, Cardizem, Toprol-XL at current dose Thank you kindly for this consultation. Nurse Practitioner note has been reviewed, I agree with a documented findings and plan of care. Patient was seen and examined Objective - Vital Signs Vital signs: Vital Signs Temp 98.1 F 12/28/19 07:00 Pulse 80 12/28/19 08:44 Resp 18 12/28/19 08:20 BP 129/73 12/28/19 07:00 Pulse Ox 100 12/28/19 07:00 Intake & Output 12/27/19 12/28/19 12/28/19 18:59 06:59 18:59 Output Total 1200 400 Balance -1200 -400 Weight 61.4 kg 61.5 kg Output: Urine 1200 400 Other: Voiding Method Urinal Urinal Urinal # Voids 2 - Labs CBC & Chem 7: 12/25/19 22:30 12/28/19 07:20 Labs: Abnormal Lab Results - Last 24 Hours (Table) 12/28/19 Range/Units 07: BUN 33 H (9-20) mg/dL Creatinine 1.36 H (0.66-1.25) mg/dL Glucose 120 H (74-99) mg/dL Microbiology - Last 24 Hours (Table) 12/25/19 22:30 Blood Culture - Preliminary Blood No Growth after 48 hours
[2019-12-28] MEDS ORDERED: FUROSEMIDE 40 MG TAB PO SCH (16:00)
[2019-12-28] MEDS: FOLIC ACID 1 MG TAB PO SCH (16:22)
[2019-12-28] MEDS: MAGNESIUM OXIDE 400 MG TAB PO SCH (16:22)
== END 2019-12-28 17:48 ==
LOC: EC 21:18 → 4SSUR 12-26 00:19
PROVIDERS: ADMIT Hospitalist; ATTEND Hospitalist
DX: J96.21 Acute and chronic respiratory failure with hypoxia (principal); I50.32 Chronic diastolic (congestive) heart failure; J84.10 Pulmonary fibrosis, unspecified; J43.9 Emphysema, unspecified; E03.9 Hypothyroidism, unspecified; I48.19 Other persistent atrial fibrillation; I13.0 Hypertensive heart and chronic kidney disease with heart failure and stage 1 through stage 4 chronic kidney disease, or unspecified chronic kidney disease; E78.5 Hyperlipidemia, unspecified; I25.10 Atherosclerotic heart disease of native coronary artery without angina pectoris; G40.909 Epilepsy, unspecified, not intractable, without status epilepticus; D64.9 Anemia, unspecified; K21.9 Gastro-esophageal reflux disease without esophagitis; I25.2 Old myocardial infarction; I69.328 Other speech and language deficits following cerebral infarction; I69.398 Other sequelae of cerebral infarction; I69.331 Monoplegia of upper limb following cerebral infarction affecting right dominant side; I69.392 Facial weakness following cerebral infarction; G89.29 Other chronic pain; M54.5 Low back pain; N28.1 Cyst of kidney, acquired; N18.3 Chronic kidney disease, stage 3 (moderate); E87.2 Acidosis; M19.90 Unspecified osteoarthritis, unspecified site; K57.90 Diverticulosis of intestine, part unspecified, without perforation or abscess without bleeding; M51.9 Unspecified thoracic, thoracolumbar and lumbosacral intervertebral disc disorder; I95.1 Orthostatic hypotension; G25.81 Restless legs syndrome; I08.3 Combined rheumatic disorders of mitral, aortic and tricuspid valves; Z85.118 Personal history of other malignant neoplasm of bronchus and lung; Z79.51 Long term (current) use of inhaled steroids; Z79.899 Other long term (current) drug therapy; Z79.890 Hormone replacement therapy; Z88.8 Allergy status to other drugs, medicaments and biological substances; Z88.7 Allergy status to serum and vaccine; Z87.39 Personal history of other diseases of the musculoskeletal system and connective tissue; Z87.19 Personal history of other diseases of the digestive system; Z85.038 Personal history of other malignant neoplasm of large intestine; Z98.890 Other specified postprocedural states; Z87.828 Personal history of other (healed) physical injury and trauma; Z87.442 Personal history of urinary calculi; Z86.19 Personal history of other infectious and parasitic diseases; Z90.49 Acquired absence of other specified parts of digestive tract; Z98.41 Cataract extraction status, right eye; Z98.42 Cataract extraction status, left eye; Z87.891 Personal history of nicotine dependence; Z87.01 Personal history of pneumonia (recurrent); Z92.3 Personal history of irradiation; Z87.11 Personal history of peptic ulcer disease; Z87.81 Personal history of (healed) traumatic fracture; Z96.1 Presence of intraocular lens; Z90.2 Acquired absence of lung [part of]; Z99.81 Dependence on supplemental oxygen; Z82.3 Family history of stroke; Z80.1 Family history of malignant neoplasm of trachea, bronchus and lung
CPT/HCPCS: 96376 ×2; 96375; 96374; 99285; 36415 ×2; 94640 ×6; 93005; 93306; 83880; 80053; 80048 ×2; 83605 ×2; 84484; 85025; 85610; 85730; 87040; 87635; 71045 ×2; G0378 ×3; U0003; J2270; J1940 ×2

== ENCOUNTER 2020-01-11 21:28 | Inpatient (IN) | payer MEDICARE, OTHER ==
--- NOTE | 2020-01-11 21:45 | ED ---
General Adult HPI - General Stated complaint: hypotension Time Seen by Provider: 01/11/20 21:32 Source: patient, EMS, RN notes reviewed, old records reviewed Mode of arrival: EMS Limitations: no limitations - History of Present Illness Initial comments: 69-year-old male presented from the longterm for evaluation of low blood pressure, fever. Patient reports a fever of 101. He has history of CHF, COPD, pulmonary fibrosis. He is bedbound and nonambulatory at baseline. He had noted to have low blood pressure at the longterm and was transported for evaluation. During transport EMS had stable blood pressure of greater than 100 systolic during transport. Patient has no specific complaints. He states his breathing is at baseline, he wears O2. - Related Data Home Medications Medication Instructions Recorded Confirmed Budesonide-Formot 160-4.5 Mcg 2 puff INHALATION RT-BID@0800,1700 05/22/14 12/25/19 [Symbicort 160-4.5 Mcg Inhaler] Calcium Carbonate [Tums] 500 mg PO Q8H PRN 04/03/17 12/25/19 bisacodyL [Dulcolax] 10 mg RECTAL DAILY PRN 04/03/17 12/25/19 Acetaminophen [Tylenol] 650 mg PO Q6H PRN 10/20/18 12/25/19 Folic Acid 1 mg PO DAILY@169910/20/18 12/25/19 Magnesium Oxide 400 mg PO DAILY@169910/20/18 12/25/19 Montelukast [Singulair] 10 mg PO DAILY@0800 10/20/18 12/25/19 Na Phos,M-B/Na Phos,Di-Ba [Fleet 133 ml RECTAL DAILY PRN 10/20/18 12/25/19 Adult] Atorvastatin [Lipitor] 40 mg PO HS@2100 10/31/19 12/25/19 Diltiazem Oral [Cardizem*] 30 mg PO TID@0600,1400,0 10/31/19 12/25/19 Divalproex [Depakote] 250 mg PO TID@0600,1400,2200 10/31/19 12/25/19 Ipratropium-Albuterol Nebulize 3 ml INHALATION RT-QID PRN 10/31/19 12/25/19 [Duoneb 0.5 mg-3 mg/3 ml Soln] Kenalog-40 Suspension 1 ml INTRAARTIC ONCE PRN 10/31/19 12/25/19 Levothyroxine Sodium [Synthroid] 88 mcg PO DAILY@0600 10/31/19 12/25/19 Lidocaine 2% Soultion 2 ml INTRAARTIC ONCE PRN 10/31/19 12/25/19 Magnesium Hydroxide [Milk of 7,200 mg PO Q48H PRN 10/31/19 12/25/19 Magnesia Concentrate] Omeprazole [PriLOSEC] 40 mg PO DAILY@0600 10/31/19 12/25/19 PARoxetine [Paxil] 10 mg PO DAILY@0800 10/31/19 12/25/19 Saccharomyces Boulardii 250mg 1 cap PO BID@0800,1700 10/31/19 12/25/19 Capsule Sodium Chloride [[place]] 1 spray EA NOSTRIL Q1H PRN 10/31/19 12/25/19 rOPINIRole HCL [Requip] 0.5 mg PO TID@0800,1400,2200 10/31/19 12/25/19 Ferrous Sulfate [Iron] 325 mg PO BID@0800,1700 12/25/19 12/25/19 Glucerna Shake 1 can PO TID@0800,1200,1700 12/25/19 12/25/19 Melatonin 5 mg PO HS@2130 12/25/19 12/25/19 Midodrine HCl [ProAmantine] 2.5 mg PO TID@0700,1200,1700 PRN 12/25/19 12/25/19 Previous Rx's Medication Instructions Recorded Nitroglycerin Sl Tabs [Nitrostat] 0.4 mg SUBLINGUAL Q5M PRN #20 tab 04/05/17 Furosemide [Lasix] 40 mg PO BID #60 tablet 12/28/19 Metoprolol Succinate [Toprol XL] 50 mg PO DAILY@0800 #0 12/28/19 Nystatin 100,000 Unit/ml Susp 500,000 unit PO QID #100 ml 12/28/19 [Mycostatin Oral Susp] Potassium Chloride ER [K-Dur 20] 20 meq PO BID #0 12/28/19 traMADol HCL 50 mg PO Q6H PRN #12 tab 12/28/19 Allergies Allergy/AdvReac Type Severity Reaction Status Date / Time phenobarbital Allergy Unknown Hallucinati Verified 01/11/20 21:37 ons Review of Systems ROS Statement: Those systems with pertinent positive or pertinent negative responses have been documented in the HPI. ROS Other: All systems not noted in ROS Statement are negative. 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 R hip disorder/cast and brace for 2 years as a child, chronic low back pain, DDD, vertebral fractures, past L hand laceration with slight decreased ROM, RLS, hypothyroid. Last Myocardial Infarction Date:: about 1987-pt was in his 40s History of Any Multi-Drug Resistant Organisms: None Reported, C-DIFF Date of last positivie culture/infection: 10/23/18 MDRO Source:: stool Past Surgical History: Orthopedic Surgery Additional Past Surgical History / Comment(s): 2014 colonoscopy/lap sigmoid colectomy, colonoscopies, 2017 bronch/biopsy/pneumo with chest tube/L upper lobe wedge resection, L hand laceration with surgical repair, bilateral cataract removals/lens implants. Past Anesthesia/Blood Transfusion Reactions: No Reported Reaction Additional Past Anesthesia/Blood Transfusion Reaction / Comment(s): Pt has received blood in past without reaction. Past Psychological History: No Psychological Hx Reported Smoking Status: Former smoker Past Alcohol Use History: None Reported Past Drug Use History: None Reported - Past Family History Father Family Medical History: CVA/TIA Mother Family Medical History: Cancer Additional Family Medical History / Comment(s): Lung cancer-pt states d/t chemical exposure. General Exam Limitations: no limitations General appearance: alert Head exam: Present: atraumatic, normocephalic Eye exam: Present: normal appearance, PERRL ENT exam: Present: mucous membranes dry Neck exam: Present: normal inspection. Absent: tenderness, meningismus Respiratory exam: Present: wheezes, rales. Absent: respiratory distress, decreased breath sounds Cardiovascular Exam: Present: regular rate, irregular rhythm GI/Abdominal exam: Present: soft. Absent: distended, tenderness, guarding, rebound Extremities exam: Present: normal inspection, normal capillary refill Neurological exam: Present: alert Psychiatric exam: Present: normal affect, normal mood Skin exam: Present: pallor Course Vital Signs 01/11/20 21:30 Temperature 98 F Pulse Rate 83 Respiratory 18 Rate Blood Pressure 110/64 O2 Sat by Pulse 99 Oximetry EKG Findings - EKG Comments: EKG Findings:: Atrial fibrillation, prolonged QT, rate of 86, QRS duration 76, QTC 43, no ST segment elevation. Medical Decision Making - Medical Decision Making 69-year-old male with weakness, low blood pressure, reported fever by the patient. He is afebrile here. He does appear very pale, he has a hemoglobin which was drawn yesterday on outpatient laboratory testing of 7.4 and hemoglobin in the emergency department of 6.7. He has chronic kidney disease with a creatinine at baseline. He has been transfused 1 unit of blood. Chest x-ray negative for focal pneumonia, showing advanced pulmonary fibrosis. He has a normal white blood cell count 5.7. He will be admitted awaiting transfusion and for close blood pressure monitoring as his blood pressure was quite low at [facility]. Urinalysis pending - Lab Data Result diagrams: 01/11/20 21:46 01/11/20 21:46 Lab Results 01/11/20 01/11/20 01/11/20 Range/Units 21:46 21:46 21:46 WBC 5.7 (3.8-10.6) k/uL RBC 1.90 L (4.30-5.90) m/uL Hct 21.2 L (39.0-53.0) % MCV 111.8 H (80.0-100.0) fL MCH 35.4 H (25.0-35.0) pg MCHC 31.7 (31.0-37.0) g/dL RDW 22.3 H (11.5-15.5) % Plt Count 195 (150-450) k/uL Hypochromasia Marked Poikilocytosis Moderate Anisocytosis Moderate Macrocytosis Marked A PT 12.0 (9.0-12.0) sec INR 1.2 H (<1.2) APTT 26.0 (22.0-30.0) sec Sodium 132 L (137-145) mmol/L Potassium 4.5 (3.5-5.1) mmol/L Chloride 102 (98-107) mmol/L Carbon Dioxide 21 L (22-30) mmol/L Anion Gap 9 mmol/L BUN 38 H (9-20) mg/dL Creatinine 1.65 H (0.66-1.25) mg/dL Est GFR (CKD-EPI)AfAm 48 (>60 ml/min/1.73 sqM) Est GFR (CKD-EPI)NonAf 41 (>60 ml/min/1.73 sqM) Glucose 141 H (74-99) mg/dL Plasma Lactic Acid Jhonny (0.7-2.0) mmol/L Calcium 8.5 (8.4-10.2) mg/dL Magnesium 1.6 (1.6-2.3) mg/dL Total Bilirubin 0.6 (0.2-1.3) mg/dL AST 22 (17-59) U/L ALT 10 (4-49) U/L Alkaline Phosphatase 46 (38-126) U/L Total Protein 5.5 L (6.3-8.2) g/dL Albumin 2.8 L (3.5-5.0) g/dL 01/11/20 Range/Units 21:46 WBC (3.8-10.6) k/uL RBC (4.30-5.90) m/uL Hct (39.0-53.0) % MCV (80.0-100.0) fL MCH (25.0-35.0) pg MCHC (31.0-37.0) g/dL RDW (11.5-15.5) % Plt Count (150-450) k/uL Hypochromasia Poikilocytosis Anisocytosis Macrocytosis PT (9.0-12.0) sec INR (<1.2) APTT (22.0-30.0) sec Sodium (137-145) mmol/L Potassium (3.5-5.1) mmol/L Chloride (98-107) mmol/L Carbon Dioxide (22-30) mmol/L Anion Gap mmol/L BUN (9-20) mg/dL Creatinine (0.66-1.25) mg/dL Est GFR (CKD-EPI)AfAm (>60 ml/min/1.73 sqM) Est GFR (CKD-EPI)NonAf (>60 ml/min/1.73 sqM) Glucose (74-99) mg/dL Plasma Lactic Acid Jhonny 1.9 (0.7-2.0) mmol/L Calcium (8.4-10.2) mg/dL Magnesium (1.6-2.3) mg/dL Total Bilirubin (0.2-1.3) mg/dL AST (17-59) U/L ALT (4-49) U/L Alkaline Phosphatase (38-126) U/L Total Protein (6.3-8.2) g/dL Albumin (3.5-5.0) g/dL Disposition Clinical Impression: Symptomatic anemia Disposition: ADMITTED IP TO THIS [facility] Condition: Stable Is patient prescribed a controlled substance at d/c from ED?: No Referrals: Edd Collins DO [Primary Care Provider] - 1-2 days Decision to Admit Reason: Admit from EC Decision Date: 01/11/20 Decision Time: 22:44
[2020-01-11 22:08] LABS: INR 1.2 (<1.2)
--- NOTE | 2020-01-11 22:13 | XR ---
EXAMINATION TYPE: XR chest 1V portable DATE OF EXAM: 01/11/2020 COMPARISON: 12/28/2019 HISTORY: Short of breath. Fever. TECHNIQUE: Single view FINDINGS: There is extensive coarse interstitial infiltrate throughout the lungs. There is some coale scent density left upper lobe. There is mild pleural thickening left upper lobe. There is mild blunti ng of the costophrenic angles. IMPRESSION: Extensive chronic coarse pulmonary interstitial infiltrates consistent with advanced fibr osis. No significant change compared to old exam.
[2020-01-11 22:21] LABS: Anisocytosis Moderate; Basophils % (A) 0 %; Eosinophils % (A) 1 %; HCT 21.2 % (39.0-53.0); Hypochromasia Marked; Lymphocytes # (A) 0.9 k/uL (1.0-4.8); Lymphocytes % (A) 15 %; MCH 35.4 pg (25.0-35.0); MCHC 31.7 g/dL (31.0-37.0); MCV 111.8 fL (80.0-100.0); Macrocytosis Marked; Mean Platelet Volume 10.5; Monocytes # (A) 0.6 k/uL (0-1.0); Monocytes % (A) 10 %; Neutrophils % (A) 71 %; Platelet Count 195 k/uL (150-450); Poikilocytosis Moderate; RDW 22.3 % (11.5-15.5); WBC 5.7 k/uL (3.8-10.6)
[2020-01-11 22:26] LABS: Albumin 2.8 g/dL (3.5-5.0); Calcium 8.5 mg/dL (8.4-10.2); Magnesium 1.6 mg/dL (1.6-2.3); Potassium 4.5 mmol/L (3.5-5.1); Total Bilirubin 0.6 mg/dL (0.2-1.3); Total Protein 5.5 g/dL (6.3-8.2)
[2020-01-11 22:27] LABS: HGB 6.7 gm/dL (13.0-17.5)
[2020-01-11] MEDS ORDERED: NALOXONE 0.4 MG/ML 1 ML VIAL IV PRN (22:39)
[2020-01-11] MEDS ORDERED: PANTOPRAZOLE 40 MG/10 ML VIAL IVP STA (22:41)
[2020-01-11 22:43] LABS: Ovalocytes Present; Polychromasia Present
[2020-01-11 22:44] LABS: Large Platelets Present; RBC Fragments Present
[2020-01-12] MEDS: SODIUM CHLORIDE 0.9% 1,000 ML IV SCH ×2 (01:14→20:58)
[2020-01-12] MEDS ORDERED: PANTOPRAZOLE 40 MG/10 ML VIAL IVP ONE (01:15)
[2020-01-12] MEDS: ACETAMINOPHEN TAB 325 MG TAB PO PRN ×2 (08:24→17:00)
[2020-01-12 08:53] LABS: Anisocytosis Marked; Basophils % (A) 0 %; Eosinophils # (A) 0.1 k/uL (0-0.7); Eosinophils % (A) 1 %; HCT 28.8 % (39.0-53.0); Hypochromasia Marked; Lymphocytes # (A) 0.8 k/uL (1.0-4.8); Lymphocytes % (A) 16 %; MCHC 30.5 g/dL (31.0-37.0); Macrocytosis Marked; Monocytes # (A) 0.7 k/uL (0-1.0); Monocytes % (A) 13 %; Neutrophils # (A) 3.6 k/uL (1.3-7.7); Neutrophils % (A) 67 %; Platelet Count 190 k/uL (150-450); Poikilocytosis Slight; RBC 2.67 m/uL (4.30-5.90); RDW 24.7 % (11.5-15.5); WBC 5.4 k/uL (3.8-10.6)
[2020-01-12 09:06] LABS: Calcium 8.6 mg/dL (8.4-10.2); Potassium 3.9 mmol/L (3.5-5.1)
[2020-01-12 09:21] LABS: HGB 8.8 gm/dL (13.0-17.5)
[2020-01-12 10:58] LABS: Target Cells Present
[2020-01-12 10:59] LABS: Ovalocytes Present; Polychromasia Present; RBC Fragments Present
[2020-01-12] MEDS ORDERED: MAGNESIUM HYDROXIDE 2,400 MG/10 ML CUP PO PRN (12:46)
[2020-01-12] MEDS ORDERED: IPRATROPIUM-ALBUTEROL 3 ML NEB INHALATION PRN (12:46)
[2020-01-12] MEDS ORDERED: bisacodyL 10 MG SUPP RECTAL PRN (12:46)
[2020-01-12] MEDS ORDERED: ALPRAZolam 0.25 MG TAB PO PRN (12:46)
[2020-01-12] MEDS ORDERED: NITROGLYCERIN SL TABS 0.4 MG TAB SUBLINGUAL PRN (12:46)
[2020-01-12] MEDS ORDERED: ACETAMINOPHEN TAB 325 MG TAB PO PRN (12:46)
[2020-01-12] MEDS ORDERED: MIDODRINE 5 MG TAB PO PRN (12:46)
[2020-01-12] MEDS ORDERED: CALCIUM CARBONATE 500 MG CHEWABLE PO PRN (12:46)
[2020-01-12] MEDS: DIVALPROEX 250 MG TABLET.DR PO SCH ×2 (13:44→20:57)
[2020-01-12] MEDS: PANTOPRAZOLE 40 MG/10 ML VIAL IVP SCH ×2 (13:44→20:56)
[2020-01-12] MEDS: NYSTATIN 100,000 UNIT/ML SUSP 500,000 UNIT/5 ML CUP PO SCH ×3 (13:44→20:58)
[2020-01-12] MEDS: DILTIAZEM ORAL 30 MG TAB PO SCH ×2 (13:50→20:57)
--- NOTE | 2020-01-12 14:03 | P.HPIM ---
History of Present Illness Mr. Davila is a 68-year-old male with a past medical history of GERD, hypertension, hyperlipidemia, coronary artery disease, seizure disorder, severe anemia needing blood transfusion, diastolic congestive heart failure, atrial fibrillation, history of C. diff infection,who is a resident of [facility] brought in by the EMS for low blood pressure, fever of 101, also patient found to have low hemoglobin of 7.4, repeated was 6.7, patient got 1 unit of blood transfusion and his hemoglobin up to 8.8. Patient himself states that he did not have any complaints other than mild epistaxis for short time, he said that he routinely they checked his blood and his hemoglobin was low that is why he sent to the hospital. He complains from chronic left shoulder pain for the last 3 years. Blood pressure was good throughout his stay in ED yesterday, currently 121/64, rest of vitals are stable, no fever documented. Hemoglobin is up at 8.8 (was 6.7 on admission), WBC and platelets are normal. Creatinine slightly up at 1.6 and 1.5, baseline ends 1.2-1.4 EKG showing atrial fibrillation at rate of [address] T changes: Chest x-ray: No acute process and Advanced pulmonary fibrosis MAPS were checked and he was taking Ultram 50 mg 4 times a day and Xanax 0.25 twice a day as needed, we ordered his home medication Review of Systems CONSTITUTIONAL: No fever, no malaise, no fatigue. HEENT: No recent visual problems or hearing problems. Denied any sore throat. CARDIOVASCULAR: No orthopnea, PND, no palpitations, no syncope. PULMONARY: No shortness of breath, no cough, no hemoptysis. GASTROINTESTINAL: No diarrhea, no nausea, no vomiting, no abdominal pain. Normoactive bowel sounds. NEUROLOGICAL: No headaches, no weakness, no numbness. HEMATOLOGICAL: Denies any bleeding or petechiae. GENITOURINARY: Denies any burning micturition, frequency, or urgency. MUSCULOSKELETAL/RHEUMATOLOGICAL: Denies any joint pain, swelling, or any muscle pain. ENDOCRINE: Denies any polyuria or polydipsia. 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 R hip disorder/cast and brace for 2 years as a child, chronic low back pain, DDD, vertebral fractures, past L hand laceration with slight decreased ROM, RLS, hypothyroid. Last Myocardial Infarction Date:: about 1987-pt was in his 40s History of Any Multi-Drug Resistant Organisms: None Reported, C-DIFF Date of last positivie culture/infection: 10/23/18 MDRO Source:: stool Past Surgical History: Orthopedic Surgery Additional Past Surgical History / Comment(s): 2014 colonoscopy/lap sigmoid colectomy, colonoscopies, 2017 bronch/biopsy/pneumo with chest tube/L upper lobe wedge resection, L hand laceration with surgical repair, bilateral cataract removals/lens implants. Past Anesthesia/Blood Transfusion Reactions: No Reported Reaction Additional Past Anesthesia/Blood Transfusion Reaction / Comment(s): Pt has received blood in past without reaction. Past Psychological History: No Psychological Hx Reported Additional Psychological History / Comment(s): Pt resides at [facility]. He was ambulating with a cane/1 assist but lately in a wheelchair. He wears oxygen ATC. Smoking Status: Former smoker Past Alcohol Use History: None Reported Additional Past Alcohol Use History / Comment(s): STARTED SMOKING AT AGE 12 SMOKED 4 PPD. QUIT 2006 Past Drug Use History: None Reported - Past Family History Father Family Medical History: CVA/TIA Mother Family Medical History: Cancer Additional Family Medical History / Comment(s): Lung cancer-pt states d/t chemical exposure. Medications and Allergies Home Medications Medication Instructions Recorded Confirmed Type RX: Budesonide-Formot 160-4.5 Mcg 2 puff INHALATION RT-BID@0800,1700 05/22/14 01/12/20 History [Symbicort 160-4.5 Mcg Inhaler] RX: Calcium Carbonate [Tums] 500 mg PO Q8H PRN 04/03/17 01/12/20 History RX: bisacodyL [Dulcolax] 10 mg RECTAL DAILY PRN 04/03/17 01/12/20 History RX: Nitroglycerin Sl Tabs 0.4 mg SUBLINGUAL Q5M PRN #20 tab 04/05/17 01/12/20 Rx [Nitrostat] RX: Acetaminophen [Tylenol] 650 mg PO Q6H PRN 10/20/18 01/12/20 History RX: Folic Acid 1 mg PO DAILY@1700 10/20/18 01/12/20 History RX: Magnesium Oxide 400 mg PO DAILY@1700 10/20/18 01/12/20 History RX: Montelukast [Singulair] 10 mg PO DAILY@0800 10/20/18 01/12/20 History RX: Na Phos,M-B/Na Phos,Di-Ba 133 ml RECTAL DAILY PRN 10/20/18 01/12/20 History [Fleet Adult] Kenalog-40 Suspension 1 ml INTRAARTIC ONCE PRN 10/31/19 01/12/20 History Lidocaine 2% Soultion 2 ml INTRAARTIC ONCE PRN 10/31/19 01/12/20 History RX: Atorvastatin [Lipitor] 40 mg PO HS@2100 10/31/19 01/12/20 History RX: Diltiazem Oral [Cardizem*] 30 mg PO TID@0600,1400,0 10/31/19 01/12/20 History RX: Divalproex [Depakote] 250 mg PO TID@0600,1400,2200 10/31/19 01/12/20 History RX: Ipratropium-Albuterol Nebulize 3 ml INHALATION RT-QID PRN 10/31/19 01/12/20 History [Duoneb 0.5 mg-3 mg/3 ml Soln] RX: Levothyroxine Sodium 88 mcg PO DAILY@0600 10/31/19 01/12/20 History [Synthroid] RX: Magnesium Hydroxide [Milk of 7,200 mg PO Q48H PRN 10/31/19 01/12/20 History Magnesia Concentrate] RX: Omeprazole [PriLOSEC] 40 mg PO DAILY@0600 10/31/19 01/12/20 History RX: PARoxetine [Paxil] 10 mg PO DAILY@0800 10/31/19 01/12/20 History RX: Sodium Chloride [Forest] 1 spray EA NOSTRIL Q1H PRN 10/31/19 01/12/20 History RX: rOPINIRole HCL [Requip] 0.5 mg PO TID@0800,1400,2200 10/31/19 01/12/20 History Saccharomyces Boulardii 250mg 1 cap PO BID@0800,1700 10/31/19 01/12/20 History Capsule RX: Ferrous Sulfate [Iron] 325 mg PO BID@0800,1700 12/25/19 01/12/20 History RX: Glucerna Shake 1 can PO TID@0800,1200,1700 12/25/19 01/12/20 History RX: Melatonin 5 mg PO HS@2100 12/25/19 01/12/20 History RX: Midodrine HCl [ProAmantine] 2.5 mg PO TID@0700,1200,1700 PRN 12/25/19 01/12/20 History RX: Metoprolol Succinate [Toprol 50 mg PO DAILY@0800 #0 12/28/19 01/12/20 Rx XL] RX: traMADol HCL 50 mg PO Q6H PRN #12 tab 12/28/19 01/12/20 Rx ALPRAZolam [Xanax] 0.25 mg PO BID PRN 01/12/20 01/12/20 History Furosemide [Lasix] 40 mg PO BID@0800,1700 01/12/20 01/12/20 History RX: Nystatin 100,000 Unit/ml Susp 5 ml PO QID 01/12/20 01/12/20 History [Mycostatin Oral Susp] RX: Potassium Chloride ER [K-Dur 20 meq PO BID@0800,1700 01/12/20 01/12/20 History 20] Allergies Allergy/AdvReac Type Severity Reaction Status Date / Time phenobarbital Allergy Unknown Hallucinati Verified 01/12/20 08:19 ons Physical Exam Vitals: Vital Signs Temp Pulse Pulse Resp BP BP Pulse Ox 01/12/20 10:56 93 16 121/64 97 01/12/20 07:30 16 01/12/20 07:00 97.6 F 90 18 126/61 93 L 01/12/20 02:38 97.6 F 98 16 109/53 99 01/12/20 00:42 98.0 F 87 16 128/65 95 01/12/20 00:04 98 F 91 18 114/67 98 01/11/20 23:34 98 F 90 18 135/78 01/11/20 23:33 98 F 92 18 131/59 96 01/11/20 23:24 98.1 F 80 18 128/55 01/11/20 23:20 98.5 F 94 18 109/51 01/11/20 21:30 98 F 83 18 110/64 99 Intake and Output 01/11/20 01/12/20 01/12/20 22:59 06:59 14:59 Intake Total 0 500 Output Total 400 400 Balance -400 100 Intake: Oral 500 Blood Product 0 Rc As-1 Unit 0 [id number] Output: Urine 400 400 Other: Voiding Method Urinal Weight 62.596 kg 62.596 kg -GENERAL: The patient is alert and oriented x3, not in any acute distress. Cachectic HEENT: Pupils are round and equally reacting to light. EOMI. No scleral icterus. No conjunctival pallor. Normocephalic, atraumatic. No pharyngeal erythema. No thyromegaly. CARDIOVASCULAR: S1 and S2 present. No murmurs, rubs, or gallops. PULMONARY: Chest is clear to auscultation. Bilateral crepitations ABDOMEN: Soft, nontender, nondistended, normoactive bowel sounds. No palpable organomegaly. MUSCULOSKELETAL: No joint swelling or deformity. EXTREMITIES: No cyanosis, clubbing, or pedal edema. NEUROLOGICAL: Gross neurological examination did not reveal any focal deficits. SKIN: No rashes. No petechiae Results CBC & Chem 7: 01/12/20 08:27 01/12/20 08:27 Labs: Abnormal Lab Results - Last 24 Hours (Table) 01/11/20 01/11/20 01/11/20 Range/Units 21:46 21:46 21:46 RBC 1.90 L (4.30-5.90) m/uL Hgb 6.7 L* (13.0-17.5) gm/dL Hct 21.2 L (39.0-53.0) % MCV 111.8 H (80.0-100.0) fL MCH 35.4 H (25.0-35.0) pg MCHC (31.0-37.0) g/dL RDW 22.3 H (11.5-15.5) % Lymphocytes # 0.9 L (1.0-4.8) k/uL Macrocytosis Marked A INR 1.2 H (<1.2) Sodium 132 L (137-145) mmol/L Carbon Dioxide 21 L (22-30) mmol/L BUN 38 H (9-20) mg/dL Creatinine 1.65 H (0.66-1.25) mg/dL Glucose 141 H (74-99) mg/dL Total Protein 5.5 L (6.3-8.2) g/dL Albumin 2.8 L (3.5-5.0) g/dL Crossmatch 01/11/20 01/12/20 01/12/20 Range/Units 21:46 08:27 08:27 RBC 2.67 L (4.30-5.90) m/uL Hgb 8.8 L D (13.0-17.5) gm/dL Hct 28.8 L (39.0-53.0) % MCV 108.0 H (80.0-100.0) fL MCH (25.0-35.0) pg MCHC 30.5 L (31.0-37.0) g/dL RDW 24.7 H (11.5-15.5) % Lymphocytes # 0.8 L (1.0-4.8) k/uL Macrocytosis Marked A INR (<1.2) Sodium (137-145) mmol/L Carbon Dioxide (22-30) mmol/L BUN 35 H (9-20) mg/dL Creatinine 1.52 H (0.66-1.25) mg/dL Glucose 110 H (74-99) mg/dL Total Protein (6.3-8.2) g/dL Albumin (3.5-5.0) g/dL Crossmatch See Detail Thrombosis Risk Factor Assmnt - Choose All That Apply Each Factor Represents 1 point: Abnormal pulmonary function (COPD), Heart failure (<1month) Other Risk Factors: No Other congenital or acquired thrombophilia - If yes, enter type in comment: No Thrombosis Risk Factor Assessment Total Risk Factor Score: 2 Thrombosis Risk Factor Assessment Level: Low Risk Assessment and Plan Assessment: Acute blood loss anemia, rule out GI bleed, his status post one unit of blood transfusion Epistaxis Hypotension on admission, improved History of fever, no more fevers since admission, we'll keep monitoring, we'll send for blood culture and urine culture History of C. diff Pulmonary fibrosis Hypertension Hyperlipidemia Seizure disorder Severe anemia needing a blood transfusion Diabetic congestive heart regular Plan: This is a pleasant 69 years old male who presents with acute blood loss anemia, possible GI bleed. Hypotension improved. We'll send his urine analysis. Continue with Protonix twice a day. GI team were consulted. Patient was instructed to follow up with orthopedic upon discharge for his left shoulder problem which is chronic for 3 years, contact information is provided for Dr. Kapadia. Also discussed with the patient regarding multiple admission to the hospital is qualified for palliative care consult as per continuous pillowcase cutter Elizabeth, Labs and medication were reviewed.. Continue same treatment. Continue with sy mptomatic treatment. Resume home medication. Monitor lytes and vitals. DVT and GI prophylaxis. Further recommendations of the clinical course of the patient DVT prophylaxis: No Subcutaneous heparin and if you for possible GI bleeds GI Prophylaxis: Ppi PT/OT: Pending Prognosis is guarded
[2020-01-12] MEDS: traMADol 50 MG TAB PO PRN (14:09)
[2020-01-12 16:11] LABS: Appearance,Urine Clear (Clear); Color,Urine Light Yellow; Protein,Urine Trace (Negative); Specific Gravity,Urine 1.006 (1.001-1.035)
[2020-01-12 16:12] LABS: Bilirubin,Urine Negative (Negative); Blood,Urine Negative (Negative); Glucose,Urine (UA) Negative (Negative); Ketones,Urine Negative (Negative); Leukocyte Esterase,Urine Negative (Negative); Nitrite,Urine Negative (Negative); Urobilinogen,Urine <2.0 mg/dL (<2.0)
[2020-01-12] MEDS ORDERED: NON FORMULARY DRUG (Glucerna Shake 1 CAN) PO SCH (17:00)
[2020-01-12] MEDS: FERROUS SULFATE 325 MG TAB PO SCH (17:01)
[2020-01-12] MEDS: MAGNESIUM OXIDE 400 MG TAB PO SCH (17:01)
[2020-01-12] MEDS: FOLIC ACID 1 MG TAB PO SCH (17:01)
[2020-01-12] MEDS: SYMBICORT 160-4.5 MCG INHALER INHALATION SCH (19:55)
[2020-01-12] MEDS: ATORVASTATIN 40 MG TAB PO SCH (20:57)
[2020-01-12] MEDS: MELATONIN 5 MG TABLET PO SCH (20:57)
[2020-01-13] MEDS: ACETAMINOPHEN TAB 325 MG TAB PO PRN ×2 (02:12→15:21)
[2020-01-13] MEDS: DIVALPROEX 250 MG TABLET.DR PO SCH ×3 (05:48→20:26)
[2020-01-13] MEDS: LEVOTHYROXINE 88 MCG TAB PO SCH (05:48)
[2020-01-13] MEDS: DILTIAZEM ORAL 30 MG TAB PO SCH ×3 (05:48→20:26)
[2020-01-13 07:39] LABS: Anisocytosis Marked; Basophils % (A) 0 %; Eosinophils # (A) 0.1 k/uL (0-0.7); Eosinophils % (A) 2 %; HCT 27.1 % (39.0-53.0); HGB 8.2 gm/dL (13.0-17.5); Hypochromasia Marked; Lymphocytes # (A) 0.8 k/uL (1.0-4.8); Lymphocytes % (A) 18 %; MCHC 30.1 g/dL (31.0-37.0); MCV 106.4 fL (80.0-100.0); Macrocytosis Marked; Mean Platelet Volume 9.6; Monocytes # (A) 0.5 k/uL (0-1.0); Monocytes % (A) 10 %; Neutrophils # (A) 3.2 k/uL (1.3-7.7); Neutrophils % (A) 67 %; Platelet Count 196 k/uL (150-450); Poikilocytosis Slight; RBC 2.55 m/uL (4.30-5.90); RDW 24.2 % (11.5-15.5); WBC 4.7 k/uL (3.8-10.6)
[2020-01-13] MEDS: SYMBICORT 160-4.5 MCG INHALER INHALATION SCH ×2 (07:47→21:01)
[2020-01-13 07:49] LABS: Calcium 8.5 mg/dL (8.4-10.2)
[2020-01-13] MEDS: PARoxetine 10 MG TAB PO SCH (08:11)
[2020-01-13] MEDS: MONTELUKAST 10 MG TAB PO SCH (08:14)
[2020-01-13] MEDS: FERROUS SULFATE 325 MG TAB PO SCH ×2 (08:14→17:44)
[2020-01-13] MEDS: METOPROLOL SUCCINATE (ER) 50 MG TAB.ER.24H PO SCH (08:15)
[2020-01-13] MEDS: NYSTATIN 100,000 UNIT/ML SUSP 500,000 UNIT/5 ML CUP PO SCH ×4 (08:16→20:25)
[2020-01-13 08:34] LABS: Ovalocytes Present
[2020-01-13 08:35] LABS: RBC Fragments Present
[2020-01-13 08:36] LABS: Polychromasia Present
[2020-01-13] MEDS: PANTOPRAZOLE 40 MG/10 ML VIAL IVP SCH ×2 (09:41→20:25)
[2020-01-13] MEDS: MAGNESIUM OXIDE 400 MG TAB PO SCH (17:44)
[2020-01-13] MEDS: FOLIC ACID 1 MG TAB PO SCH (17:44)
[2020-01-13] MEDS: MELATONIN 5 MG TABLET PO SCH (20:26)
[2020-01-13] MEDS: ATORVASTATIN 40 MG TAB PO SCH (20:26)
[2020-01-13 21:10] LABS: % Iron Saturation 12.38 (15.00-50.00); Ferritin 1877.6 ng/mL (22.0-322.0)
[2020-01-13] MEDS: SODIUM CHLORIDE 0.9% 1,000 ML IV SCH (21:14)
--- NOTE | 2020-01-14 00:58 | P.PN ---
Subjective Progress Note Date: 01/13/20 Principal diagnosis: Anemia Mr. Davila is a 68-year-old male with a past medical history of GERD, hypertension, hyperlipidemia, coronary artery disease, seizure disorder, severe anemia needing blood transfusion, diastolic congestive heart failure, atrial fibrillation, history of C. diff infection,who is a resident of [facility] brought in by the EMS for low blood pressure, fever of 101, also patient found to have low hemoglobin of 7.4, repeated was 6.7, patient got 1 unit of blood transfusion and his hemoglobin up to 8.8. Patient himself states that he did not have any complai nts other than mild epistaxis for short time, he said that he routinely they checked his blood and his hemoglobin was low that is why he sent to the hospital. He complains from chronic left shoulder pain for the last 3 years. Blood pressure was good throughout his stay in ED yesterday, currently 121/64, rest of vitals are stable, no fever documented. Hemoglobin is up at 8.8 (was 6.7 on admission), WBC and platelets are normal. Creatinine slightly up at 1.6 and 1.5, baseline ends 1.2-1.4 EKG showing atrial fibrillation at rate of [address] T changes: Chest x-ray: No acute process and Advanced pulmonary fibrosis MAPS were checked and he was taking Ultram 50 mg 4 times a day and Xanax 0.25 twice a day as needed, we ordered his home medication 01/13/2020 Patient is currently lying in the bed comfortably. Patient is status post blood transfusion hemoglobin level went up to 8.8 and dropping to 8.2 currently. BUN 31 and creatinine 1.35. Iron profile showed saturation 12.3 and iron 26 and TIBC 210 and ferritin is 1877. GI is following. No complaints of hematemesis or melena. Tolerating oral diet. Currently saturating well on 2 L oxygen via nasal cannula. No complaints of chest pain or worsening shortness of breath. No fever no chills. Current medications reviewed. Objective - Vital Signs Vital signs: Vital Signs Temp 97.7 F 01/13/20 09:13 Pulse 87 01/13/20 09:13 Resp 18 01/13/20 09:13 BP 138/57 01/13/20 09:13 Pulse Ox 100 01/13/20 00:09 Intake & Output 01/12/20 01/13/20 01/13/20 18:59 06:59 18:59 Intake Total 500 Output Total 600 200 Balance -100 -200 Intake: Oral 500 Output: Urine 600 200 Other: Voiding Method Urinal Urinal - Exam -GENERAL: The patient is alert and oriented x3, not in any acute distress. Cachectic HEENT: Pupils are round and equally reacting to light. EOMI. No scleral icterus. No conjunctival pallor. Normocephalic, atraumatic. No pharyngeal erythema. No thyromegaly. CARDIOVASCULAR: S1 and S2 present. No murmurs, rubs, or gallops. PULMONARY: Chest is clear to auscultation. Bilateral crepitations ABDOMEN: Soft, nontender, nondistended, normoactive bowel sounds. No palpable organomegaly. MUSCULOSKELETAL: No joint swelling or deformity. EXTREMITIES: No cyanosis, clubbing, or pedal edema. NEUROLOGICAL: Gross neurological examination did not reveal any focal deficits. SKIN: No rashes. No petechiae - Labs CBC & Chem 7: 01/13/20 07:15 01/13/20 07:15 Labs: Abnormal Lab Results - Last 24 Hours (Table) 01/12/20 01/13/20 01/13/20 Range/Units 15:40 07:15 07:15 RBC 2.55 L (4.30-5.90) m/uL Hgb 8.2 L (13.0-17.5) gm/dL Hct 27.1 L (39.0-53.0) % MCV 106.4 H (80.0-100.0) fL MCHC 30.1 L (31.0-37.0) g/dL RDW 24.2 H (11.5-15.5) % Lymphocytes # 0.8 L (1.0-4.8) k/uL Macrocytosis Marked A BUN 31 H (9-20) mg/dL Creatinine 1.35 H (0.66-1.25) mg/dL Urine Protein Trace H (Negative) Microbiology - Last 24 Hours (Table) 01/11/20 22:18 Blood Culture - Preliminary Blood No Growth after 24 hours Assessment and Plan Assessment: Acute blood loss anemia, rule out GI bleed, his status post one unit of blood transfusion. FOBT -ve Epistaxis Hypotension on admission, improved History of fever, no more fevers since admission, we'll keep monitoring, we'll send for blood culture and urine culture History of C. diff Pulmonary fibrosis Hypertension Hyperlipidemia Seizure disorder Severe anemia needing a blood transfusion during recent admission Chronic CHF with diastolic dysfunction. Plan: This is a pleasant 69 years old male who presents with acute blood loss anemia, possible GI bleed. Hypotension improved. We'll send his urine analysis. Continue with Protonix twice a day. GI team were consulted. Patient was instructed to follow up with orthopedic upon discharge for his left shoulder problem which is chronic for 3 years, contact information is provided for Dr. Kapadia. Also discussed with the patient regarding multiple admission to the hospital is qualified for palliative care consult as per returned case inspector Elizabeth, Labs and medication were reviewed.. Continue same treatment. Continue with symptomatic treatment. Resume home medication. Monitor lytes and vitals. DVT and GI prophylaxis. Further recommendations of the clinical course of the patient DVT prophylaxis: No Subcutaneous heparin and if you for possible GI bleeds GI Prophylaxis: Ppi PT/OT: Pending Prognosis is guarded Time with Patient: Greater than 30
[2020-01-14] MEDS: traMADol 50 MG TAB PO PRN (01:19)
[2020-01-14] MEDS: DILTIAZEM ORAL 30 MG TAB PO SCH ×3 (05:40→20:11)
[2020-01-14] MEDS: LEVOTHYROXINE 88 MCG TAB PO SCH (05:40)
[2020-01-14] MEDS: DIVALPROEX 250 MG TABLET.DR PO SCH ×3 (05:40→20:11)
[2020-01-14] MEDS: MONTELUKAST 10 MG TAB PO SCH (07:55)
[2020-01-14] MEDS: PANTOPRAZOLE 40 MG/10 ML VIAL IVP SCH ×2 (07:55→20:11)
[2020-01-14] MEDS: METOPROLOL SUCCINATE (ER) 50 MG TAB.ER.24H PO SCH (07:55)
[2020-01-14] MEDS: FERROUS SULFATE 325 MG TAB PO SCH ×2 (07:55→18:22)
[2020-01-14] MEDS: PARoxetine 10 MG TAB PO SCH (07:56)
[2020-01-14] MEDS: NYSTATIN 100,000 UNIT/ML SUSP 500,000 UNIT/5 ML CUP PO SCH ×4 (07:57→20:12)
[2020-01-14] MEDS: SYMBICORT 160-4.5 MCG INHALER INHALATION SCH ×2 (08:49→20:04)
[2020-01-14 09:18] LABS: Anisocytosis Moderate; HGB 8.3 gm/dL (13.0-17.5); Hypochromasia Marked; MCH 34.2 pg (25.0-35.0); MCHC 31.9 g/dL (31.0-37.0); Macrocytosis Marked; Mean Platelet Volume 8.2; Platelet Count 169 k/uL (150-450); Poikilocytosis Slight; RBC 2.43 m/uL (4.30-5.90); RDW 23.9 % (11.5-15.5); WBC 4.8 k/uL (3.8-10.6)
[2020-01-14 09:27] LABS: Calcium 8.4 mg/dL (8.4-10.2)
[2020-01-14 10:38] LABS: Band Neutrophils % 1 %; Eosinophils # (M) 0.05 k/uL (0-0.7); Lymphocytes # (M) 0.77 k/uL (1.0-4.8)
[2020-01-14 10:42] LABS: Monocytes # (M) 0.58 k/uL (0-1.0); Neutrophils % (M) 72 %; Nucleated Red Blood Cells 0 /100 WBC (0-0); Total Cells Counted 200
[2020-01-14] MEDS: SODIUM FERRIC GLUCONAT-SUCROSE 125 MG in SODIUM CHLORIDE 0.9% 100 ML IVPB SCH (15:09)
[2020-01-14] MEDS: FUROSEMIDE 40 MG TAB PO SCH (15:10)
[2020-01-14] MEDS: MAGNESIUM OXIDE 400 MG TAB PO SCH (18:22)
[2020-01-14] MEDS: FOLIC ACID 1 MG TAB PO SCH (18:22)
[2020-01-14] MEDS: ATORVASTATIN 40 MG TAB PO SCH (20:11)
[2020-01-14] MEDS: MELATONIN 5 MG TABLET PO SCH (20:11)
[2020-01-15] MEDS: SODIUM CHLORIDE 0.9% 1,000 ML IV SCH (00:49)
[2020-01-15] MEDS: traMADol 50 MG TAB PO PRN ×3 (01:25→13:29)
[2020-01-15] MEDS: LEVOTHYROXINE 88 MCG TAB PO SCH (05:07)
[2020-01-15] MEDS: DILTIAZEM ORAL 30 MG TAB PO SCH (05:08)
[2020-01-15] MEDS: DIVALPROEX 250 MG TABLET.DR PO SCH (05:08)
--- NOTE | 2020-01-15 06:00 | P.CONS ---
History of Present Illness - Reason for Consult Consult date: 01/13/20 Anemia Requesting physician: Nitza Irwin - Chief Complaint Low blood pressure - History of Present Illness 68-year-old male with a medical history significant for GERD, hypertension, hyperlipidemia, coronary artery disease, seizure disorder, chronic anemia, diastolic heart failure, atrial fibrillation and prior treatment for C. difficile who presented to the hospital due to complaints of hypotension and fever. Patient's baseline hemoglobin is approximately in the 7-8 range. He was noted to have a hemoglobin of 6.7 on admission currently stable status post transfusion of packed red blood cells. Previously he of colonoscopy in January 2018 significant for a normal-appearing colon as well as a normal-appearing anastomotic site. Patient denies any signs or symptoms of GI bleeding at this time. No abdominal pain. No nausea or vomiting. He reports a remote history of peptic ulcer disease approximately 20 years ago believes he had an E[facility]. Denies any NSAID use. He has been taking iron therapy twice daily prior to admission. Review of Systems REVIEW OF SYSTEMS: CONSTITUTIONAL: Denies any fevers, chills, weight change or fatigue. CARDIOVASCULAR: Denies any chest pain, palpitations high blood pressures but did have low blood pressures prior to admission RESPIRATORY: Denies any shortness of breath, hemoptysis or cough. GENITOURINARY: No dysuria or hematuria. MUSCULOSKELETAL: No weakness reported. SKIN: Denies any new rashes or lesions, jaundice or pallor. PSYCHIATRIC: He does have a history of depression and anxiety. NEUROLOGY: Denies headache, denies any new focal deficits. EARS/NOSE/THROAT: No recent hearing change, congestion, nasal discharge or sore throat. EYES: No pain in eyes, discharge or change in vision. GASTROINTESTINAL: As per HPI. 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 R hip disorder/cast and brace for 2 years as a child, chronic low back pain, DDD, vertebral fractures, past L hand laceration with slight decreased ROM, RLS, hypothyroid. Last Myocardial Infarction Date:: about 1987-pt was in his 40s History of Any Multi-Drug Resistant Organisms: None Reported, C-DIFF Year Discovered:: 10/23/18 MDRO Source:: stool Past Surgical History: Orthopedic Surgery Additional Past Surgical History / Comment(s): 2014 colonoscopy/lap sigmoid colectomy, colonoscopies, 2017 bronch/biopsy/pneumo with chest tube/L upper lobe wedge resection, L hand laceration with surgical repair, bilateral cataract removals/lens implants. Past Anesthesia/Blood Transfusion Reactions: No Reported Reaction Additional Past Anesthesia/Blood Transfusion Reaction / Comm: Pt has received blood in past without reaction. Past Psychological History: No Psychological Hx Reported Additional Psychological History / Comment(s): Pt resides at [facility]. He was ambulating with a cane/1 assist but lately in a wheelchair. He wears oxygen ATC. Smoking Status: Former smoker Past Alcohol Use History: None Reported Additional Past Alcohol Use History / Comment(s): STARTED SMOKING AT AGE 12 SMOKED 4 PPD. QUIT 2006 Past Drug Use History: None Reported - Past Family History Father Family Medical History: CVA/TIA Mother Family Medical History: Cancer Additional Family Medical History / Comment(s): Lung cancer-pt states d/t chemical exposure. Medications and Allergies Home Medications Medication Instructions Recorded Confirmed Type Budesonide-Formot 160-4.5 Mcg 2 puff INHALATION RT-BID@0800,1700 05/22/14 01/12/20 History [Symbicort 160-4.5 Mcg Inhaler] Calcium Carbonate [Tums] 500 mg PO Q8H PRN 04/03/17 01/12/20 History bisacodyL [Dulcolax] 10 mg RECTAL DAILY PRN 04/03/17 01/12/20 History Nitroglycerin Sl Tabs [Nitrostat] 0.4 mg SUBLINGUAL Q5M PRN #20 tab 04/05/17 01/12/20 Rx Acetaminophen [Tylenol] 650 mg PO Q6H PRN 10/20/18 01/12/20 History Folic Acid 1 mg PO DAILY@1700 10/20/18 01/12/20 History Magnesium Oxide 400 mg PO DAILY@1700 10/20/18 01/12/20 History Montelukast [Singulair] 10 mg PO DAILY@0800 10/20/18 01/12/20 History Na Phos,M-B/Na Phos,Di-Ba [Fleet 133 ml RECTAL DAILY PRN 10/20/18 01/12/20 History Adult] Atorvastatin [Lipitor] 40 mg PO HS@2100 10/31/19 01/12/20 History Diltiazem Oral [Cardizem*] 30 mg PO TID@0600,1400,0 10/31/19 01/12/20 History Divalproex [Depakote] 250 mg PO TID@0600,1400,0 10/31/19 01/12/20 History Ipratropium-Albuterol Nebulize 3 ml INHALATION RT-QID PRN 10/31/19 01/12/20 History [Duoneb 0.5 mg-3 mg/3 ml Soln] Kenalog-40 Suspension 1 ml INTRAARTIC ONCE PRN 10/31/19 01/12/20 History Levothyroxine Sodium [Synthroid] 88 mcg PO DAILY@0600 10/31/19 01/12/20 History Lidocaine 2% Soultion 2 ml INTRAARTIC ONCE PRN 10/31/19 01/12/20 History Magnesium Hydroxide [Milk of 7,200 mg PO Q48H PRN 10/31/19 01/12/20 History Magnesia Concentrate] Omeprazole [PriLOSEC] 40 mg PO DAILY@0610/31/19 01/12/20 History PARoxetine [Paxil] 10 mg PO DAILY@0800 10/31/19 01/12/20 History Saccharomyces Boulardii 250mg 1 cap PO BID@0800,1700 10/31/19 01/12/20 History Capsule Sodium Chloride [[place]] 1 spray EA NOSTRIL Q1H PRN 10/31/19 01/12/20 History rOPINIRole HCL [Requip] 0.5 mg PO TID@0800,1400,2200 10/31/19 01/12/20 History Ferrous Sulfate [Iron] 325 mg PO BID@0800,1700 12/25/19 01/12/20 History Glucerna Shake 1 can PO TID@0800,1200,1700 12/25/19 01/12/20 History Melatonin 5 mg PO HS@2100 12/25/19 01/12/20 History Midodrine HCl [ProAmantine] 2.5 mg PO TID@0700,1200,1700 PRN 12/25/19 01/12/20 History Metoprolol Succinate [Toprol XL] 50 mg PO DAILY@0800 #0 12/28/19 01/12/20 Rx traMADol HCL 50 mg PO Q6H PRN #12 tab 12/28/19 01/12/20 Rx ALPRAZolam [Xanax] 0.25 mg PO BID PRN 01/12/20 01/12/20 History Furosemide [Lasix] 40 mg PO BID@0800,1700 01/12/20 01/12/20 History Nystatin 100,000 Unit/ml Susp 5 ml PO QID 01/12/20 01/12/20 History [Mycostatin Oral Susp] Potassium Chloride ER [K-Dur 20] 20 meq PO BID@0800,1700 01/12/20 01/12/20 His tory Allergies Allergy/AdvReac Type Severity Reaction Status Date / Time phenobarbital Allergy Unknown Hallucinati Verified 01/12/20 08:19 ons Physical Exam Vitals: Vital Signs Temp Pulse Resp BP Pulse Ox 01/13/20 11:58 98.6 F 89 20 165/68 01/13/20 11:34 87 18 01/13/20 09:13 97.7 F 87 18 138/57 01/13/20 07:20 18 01/13/20 00:09 97.7 F 69 14 145/66 100 01/12/20 16:00 18 Intake and Output 01/12/20 01/13/20 01/13/20 22:59 06:59 14:59 Output Total 400 Balance -400 Output: Urine 400 Other: Voiding Method Urinal On physical examination, patient appears comfortable in no apparent distress. HEAD: Normocephalic, atraumatic. EYES: No scleral icterus. No conjunctival injection. MOUTH: No lesions, tongue midline. NECK: Trachea midline, no gross abnormalities. CHEST: Clear to auscultation with no wheezing or rhonchi appreciated. HEART: S1S2 appreciated. ABDOMEN: Soft, obese, mildly physical patient worse in the right lower quadrant. Bowel sounds are positive. No organomegaly. No guarding or rigidity. 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 SKIN: No rashes, no jaundice. NEUROLOGIC: Alert and oriented x3. No focal deficits. Results CBC & Chem 7: 01/14/20 08:19 01/14/20 08:19 Labs: Abnormal Lab Results - Last 24 Hours (Table) 01/12/20 01/13/20 01/13/20 Range/Units 15:40 07:15 07:15 RBC 2.55 L (4.30-5.90) m/uL Hgb 8.2 L (13.0-17.5) gm/dL Hct 27.1 L (39.0-53.0) % MCV 106.4 H (80.0-100.0) fL MCHC 30.1 L (31.0-37.0) g/dL RDW 24.2 H (11.5-15.5) % Lymphocytes # 0.8 L (1.0-4.8) k/uL Macrocytosis Marked A BUN 31 H (9-20) mg/dL Creatinine 1.35 H (0.66-1.25) mg/dL Urine Protein Trace H (Negative) Microbiology - Last 24 Hours (Table) 01/11/20 22:18 Blood Culture - Preliminary Blood No Growth after 24 hours Chest x-ray: report reviewed (Chronic changes consistent with advanced fibrosis noted) Assessment and Plan (1) Iron deficiency anemia Narrative/Plan: 69-year-old male as well as a known history with multiple medical comorbidities including a known history of iron deficiency anemia on iron supplementation orally in the outpatient setting who presented for hypotension. Patient has undergone endoscopic evaluation in the past with colonoscopy in January 2018 significant for a normal-appearing colon and anastomotic site. Patient noted to have a slightly worsened hemoglobin on presentation of 6.7, generally ranges from 7-8. Denies any signs or symptoms of GI bleeding. No abdominal pain. Unclear etiology, does not appear to have a GI bleed at this time and will test stool for occult blood for further evaluation. Current Visit: Yes Status: Acute Code(s): D50.9 - IRON DEFICIENCY ANEMIA, UNSPECIFIED SNOMED Code(s): 08805650 Plan: Supportive care Okay for diet Continue to monitor stool output Stool for occult blood ordered Continue Protonix therapy Continue iron supplementation Extensive discussion with the patient who is not interested in endoscopic evaluation at this time Thank you for allowing us to participate in the care of the patient
--- NOTE | 2020-01-15 06:03 | P.PN ---
Subjective Progress Note Date: 01/14/20 Principal diagnosis: Iron deficiency anemia Patient seen lying in bed, with no acute complaints. He is tolerating his diet. No signs or symptoms of bleeding. Objective - Vital Signs Vital signs: Vital Signs Temp 97.7 F 01/14/20 07:00 Pulse 90 01/14/20 07:00 Resp 18 01/14/20 07:00 BP 149/68 01/14/20 07:00 Pulse Ox 97 01/14/20 07:00 Intake & Output 01/13/20 01/14/20 01/14/20 18:59 06:59 18:59 Output Total 200 Balance -200 Output: Urine 200 Other: Voiding Method Urinal # Voids 1 1 # Bowel Movements 1 - Exam On physical examination, patient appears comfortable in no apparent distress. HEAD: Normocephalic, atraumatic. EYES: No scleral icterus. No conjunctival injection. MOUTH: No lesions, tongue midline. NECK: Trachea midline, no gross abnormalities. ABDOMEN: Soft, obese, mildly physical patient worse in the right lower quadrant. Bowel sounds are positive. No organomegaly. No guarding or rigidity. 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 SKIN: No rashes, no jaundice. NEUROLOGIC: Alert and oriented x3. No focal deficits. - Labs CBC & Chem 7: 01/14/20 08:19 01/14/20 08:19 Labs: Abnormal Lab Results - Last 24 Hours (Table) 01/13/20 01/14/20 01/14/20 Range/Units 07:15 08:19 08:19 RBC 2.43 L (4.30-5.90) m/uL Hgb 8.3 L (13.0-17.5) gm/dL Hct 26.0 L (39.0-53.0) % MCV 107.0 H (80.0-100.0) fL RDW 23.9 H (11.5-15.5) % Lymphocytes # (Manual) 0.77 L (1.0-4.8) k/uL Macrocytosis Marked A BUN 27 H (9-20) mg/dL Creatinine 1.37 H (0.66-1.25) mg/dL Glucose 130 H (74-99) mg/dL Iron 26 L (65-175) ug/dL TIBC 210 L (228-460) ug/dL % Saturation 12.38 L (15.00-50.00) Ferritin 1877.6 H (22.0-322.0) ng/mL Microbiology - Last 24 Hours (Table) 01/11/20 22:18 Blood Culture - Preliminary Blood No Growth after 48 hours Assessment and Plan (1) Iron deficiency anemia Narrative/Plan: 69-year-old male as well as a known history with multiple medical comorbidities including a known history of iron deficiency anemia on iron supplementation orally in the outpatient setting who presented for hypotension. Patient has undergone endoscopic evaluation in the past with colonoscopy in January 2018 significant for a normal-appearing colon and anastomotic site. Patient noted to have a slightly worsened hemoglobin on presentation of 6.7, generally ranges from 7-8. Denies any signs or symptoms of GI bleeding. No abdominal pain. Unclear etiology, does not appear to have a GI bleed at this time and stool for occult blood for further evaluation was negative. Current Visit: Yes Status: Acute Code(s): D50.9 - IRON DEFICIENCY ANEMIA, UNSPECIFIED SNOMED Code(s): 41849767 Plan: Supportive care Okay for diet Continue to monitor stool output Stool for occult blood negative Continue Protonix therapy Continue iron supplementation Extensive discussion with the patient who is not interested in endoscopic evaluation at this time Thank you for allowing us to participate in the care of the patient
[2020-01-15 07:44] VITALS: TEMP 97.5
[2020-01-15] MEDS: FERROUS SULFATE 325 MG TAB PO SCH (08:16)
[2020-01-15] MEDS: METOPROLOL SUCCINATE (ER) 50 MG TAB.ER.24H PO SCH (08:17)
[2020-01-15] MEDS: MONTELUKAST 10 MG TAB PO SCH (08:18)
[2020-01-15] MEDS: FUROSEMIDE 40 MG TAB PO SCH (08:18)
[2020-01-15] MEDS: NYSTATIN 100,000 UNIT/ML SUSP 500,000 UNIT/5 ML CUP PO SCH ×2 (08:19→13:28)
[2020-01-15] MEDS: PARoxetine 10 MG TAB PO SCH (08:19)
[2020-01-15 08:37] LABS: Calcium 8.6 mg/dL (8.4-10.2); Potassium 3.6 mmol/L (3.5-5.1)
[2020-01-15] MEDS: SYMBICORT 160-4.5 MCG INHALER INHALATION SCH (08:49)
[2020-01-15 09:00] LABS: Anisocytosis Moderate; Basophils % (A) 0 %; Eosinophils # (A) 0.1 k/uL (0-0.7); Eosinophils % (A) 2 %; HGB 8.8 gm/dL (13.0-17.5); Hypochromasia Marked; Lymphocytes # (A) 1.2 k/uL (1.0-4.8); Lymphocytes % (A) 25 %; MCH 33.7 pg (25.0-35.0); MCHC 31.5 g/dL (31.0-37.0); MCV 106.9 fL (80.0-100.0); Macrocytosis Marked; Mean Platelet Volume 8.6; Monocytes # (A) 0.5 k/uL (0-1.0); Monocytes % (A) 11 %; Neutrophils # (A) 2.7 k/uL (1.3-7.7); Neutrophils % (A) 59 %; Platelet Count 171 k/uL (150-450); Poikilocytosis Slight; RBC 2.62 m/uL (4.30-5.90); RDW 23.6 % (11.5-15.5); WBC 4.6 k/uL (3.8-10.6)
[2020-01-15] MEDS ORDERED: SODIUM FERRIC GLUCONAT-SUCROSE 125 MG in SODIUM CHLORIDE 0.9% 100 ML IVPB SCH (09:00)
[2020-01-15] MEDS: PANTOPRAZOLE 40 MG/10 ML VIAL IVP SCH (09:08)
[2020-01-15] MEDS: SODIUM FERRIC GLUCONAT-SUCROSE 125 MG in SODIUM CHLORIDE 0.9% 100 ML IVPB SCH (09:08)
[2020-01-15 09:09] LABS: Large Platelets Present
[2020-01-15 12:09] VITALS: BP 152/73; PULSE 78; RESP 16
--- NOTE | 2020-01-15 13:25 | P.DS ---
Providers Date of admission: 01/11/20 22:41 Expected date of discharge: 01/15/20 Attending physician: Merlin Paul MD Primary care physician: Edd Collins [facility] Course: Final diagnosis Acute blood loss anemia, ruled out GI bleed, Status post 1 unit of PRBC transfusion, FOBT negative Epistaxis Covid 19 ruled out, testing was negative Hypotension on admission, improved History of fever, no more fevers since admission, Blood and urine cultures negative History of C. diff Pulmonary fibrosis Hypertension Hyperlipidemia Seizure disorder Severe anemia needing a blood transfusion during recent admission Chronic CHF with diastolic dysfunction. Discharge disposition Patient is being Discharged in a stable condition with guarded prognosis to [facility] as he is a resident there. Patient will follow-up with Dr. Collins upon discharge. Prescriptions provided for repeat labs to monitor hemoglobin along with kidney functions. Total time taken is 35 minutes. History of present illness This is an 69-year-old male who was recently admitted with Low hemoglobin and was being closely monitored. Patient did receive a unit of PRBCs during hospitalization and hemoglobin is currently stable at 8.8. No active bleeding noted. Patient was given IV transfusions of iron as he has a history of low iron and will continue with iron supplementation oral upon discharge. Patient was also found to have slightly elevated creatinine and was of elevate with by nephrology. Prescriptions provided for repeat labs in a few days to monitor hemoglobin along with kidney functions. Patient was also evaluated by GI and having no episodes of hematemesis or melena. Covid 19 testing was negative during hospitalization. Currently no reports of chest pain, shortness of breath, or palpitations. Patient is afebrile. No reports of nausea or vomiting and patient is tolerating diet. Patient will be discharged to [facility] today. On exam vital signs are stable. Temp is 97.5F, pulse is 78, respirations are 16, blood pressure is 152/73, oxygen saturation is 98% on 4 L via nasal cannula. Cardio S1, S2 are muffled. Respiratory shows diminished breath sounds at the bases with No scattered rhonchi or wheezing noted. Abdomen is soft and nontender. Nervous system shows Diffuse weakness. Please refer to medication reconciliation sheet for a list of medications. Patient Condition at Discharge: Stable Plan - Discharge Summary Discharge Rx Participant: No New Discharge Prescriptions: Continue Budesonide-Formot 160-4.5 Mcg [Symbicort 160-4.5 Mcg Inhaler] 2 puff INHALATION RT-BID@0800,1700 Calcium Carbonate [Tums] 500 mg PO Q8H PRN PRN Reason: Indigestion bisacodyL [Dulcolax] 10 mg RECTAL DAILY PRN PRN Reason: Constipation Nitroglycerin Sl Tabs [Nitrostat] 0.4 mg SUBLINGUAL Q5M PRN #20 tab PRN Reason: Chest Pain Acetaminophen [Tylenol] 650 mg PO Q6H PRN PRN Reason: Pain Folic Acid 1 mg PO DAILY@1700 Magnesium Oxide 400 mg PO DAILY@1700 Montelukast [Singulair] 10 mg PO DAILY@0800 Na Phos,M-B/Na Phos,Di-Ba [Fleet Adult] 133 ml RECTAL DAILY PRN PRN Reason: Constipation Sodium Chloride [[place]] 1 spray EA NOSTRIL Q1H PRN PRN Reason: Congestion Magnesium Hydroxide [Milk of Magnesia Concentrate] 7,200 mg PO Q48H PRN PRN Reason: Constipation Lidocaine 2% Soultion 2 ml INTRAARTIC ONCE PRN PRN Reason: LEFT SHOULDER PAIN Kenalog-40 Suspension 1 ml INTRAARTIC ONCE PRN PRN Reason: LEFT SHOULDER PAIN Ipratropium-Albuterol Nebulize [Duoneb 0.5 mg-3 mg/3 ml Soln] 3 ml INHALATION RT-QID PRN PRN Reason: Shortness Of Breath Or Wheezing rOPINIRole HCL [Requip] 0.5 mg PO TID@0800,1400,2200 Diltiazem Oral [Cardizem*] 30 mg PO TID@0600,1400,2200 Divalproex [Depakote] 250 mg PO TID@0600,1400,2200 Saccharomyces Boulardii 250mg Capsule 1 cap PO BID@0800,1700 PARoxetine [Paxil] 10 mg PO DAILY@0800 Omeprazole [PriLOSEC] 40 mg PO DAILY@0600 Levothyroxine Sodium [Synthroid] 88 mcg PO DAILY@0600 Atorvastatin [Lipitor] 40 mg PO HS@2100 Ferrous Sulfate [Iron] 325 mg PO BID@0800,1700 Glucerna Shake 1 can PO TID@0800,1200,1700 Melatonin 5 mg PO HS@2100 Midodrine HCl [ProAmantine] 2.5 mg PO TID@0700,1200,1700 PRN PRN Reason: HOLD IF SBP >OR= 145 Metoprolol Succinate [Toprol XL] 50 mg PO DAILY@0800 #0 Furosemide [Lasix] 40 mg PO BID@0800,1700 Nystatin 100,000 Unit/ml Susp [Mycostatin Oral Susp] 5 ml PO QID Potassium Chloride ER [K-Dur 20] 20 meq PO BID@0800,1700 traMADol HCL 50 mg PO Q6H PRN #12 tab PRN Reason: Moderate Pain ALPRAZolam [Xanax] 0.25 mg PO BID PRN #6 tab PRN Reason: Anxiety Discharge Medication List Budesonide-Formot 160-4.5 Mcg [Symbicort 160-4.5 Mcg Inhaler] 2 puff INHALATION RT-BID@0800,1700 05/22/14 [History] Calcium Carbonate [Tums] 500 mg PO Q8H PRN 04/03/17 [History] bisacodyL [Dulcolax] 10 mg RECTAL DAILY PRN 04/03/17 [History] Nitroglycerin Sl Tabs [Nitrostat] 0.4 mg SUBLINGUAL Q5M PRN #20 tab 04/05/17 [Rx] Acetaminophen [Tylenol] 650 mg PO Q6H PRN 10/20/18 [History] Folic Acid 1 mg PO DAILY@17010/20/18 [History] Magnesium Oxide 400 mg PO DAILY@17010/20/18 [History] Montelukast [Singulair] 10 mg PO DAILY@0800 10/20/18 [History] Na Phos,M-B/Na Phos,Di-Ba [Fleet Adult] 133 ml RECTAL DAILY PRN 10/20/18 [History] Atorvastatin [Lipitor] 40 mg PO HS@2100 10/31/19 [History] Diltiazem Oral [Cardizem*] 30 mg PO TID@0600,1400,0 10/31/19 [History] Divalproex [Depakote] 250 mg PO TID@0600,1400,2200 10/31/19 [History] Ipratropium-Albuterol Nebulize [Duoneb 0.5 mg-3 mg/3 ml Soln] 3 ml INHALATION RT-QID PRN 10/31/19 [History] Kenalog-40 Suspension 1 ml INTRAARTIC ONCE PRN 10/31/19 [History] Levothyroxine Sodium [Synthroid] 88 mcg PO DAILY@0600 10/31/19 [History] Lidocaine 2% Soultion 2 ml INTRAARTIC ONCE PRN 10/31/19 [History] Magnesium Hydroxide [Milk of Magnesia Concentrate] 7,200 mg PO Q48H PRN 10/31/19 [History] Omeprazole [PriLOSEC] 40 mg PO DAILY@0600 10/31/19 [History] PARoxetine [Paxil] 10 mg PO DAILY@0800 10/31/19 [History] Saccharomyces Boulardii 250mg Capsule 1 cap PO BID@0800,1700 10/31/19 [History] Sodium Chloride [[place]] 1 spray EA NOSTRIL Q1H PRN 10/31/19 [History] rOPINIRole HCL [Requip] 0.5 mg PO TID@0800,1400,2200 10/31/19 [History] Ferrous Sulfate [Iron] 325 mg PO BID@0800,1700 12/25/19 [History] Glucerna Shake 1 can PO TID@0800,1200,1700 12/25/19 [History] Melatonin 5 mg PO HS@2100 12/25/19 [History] Midodrine HCl [ProAmantine] 2.5 mg PO TID@0700,1200,1700 PRN 12/25/19 [History] Metoprolol Succinate [Toprol XL] 50 mg PO DAILY@0800 #0 12/28/19 [Rx] Furosemide [Lasix] 40 mg PO BID@0800,1700 01/12/20 [History] Nystatin 100,000 Unit/ml Susp [Mycostatin Oral Susp] 5 ml PO QID 01/12/20 [History] Potassium Chloride ER [K-Dur 20] 20 meq PO BID@0800,1700 01/12/20 [History] ALPRAZolam [Xanax] 0.25 mg PO BID PRN #6 tab 01/15/20 [Rx] traMADol HCL 50 mg PO Q6H PRN #12 tab 01/15/20 [Rx] Follow up Appointment(s)/Referral(s): Souphis,Edd, DO [Primary Care Provider] - 1-2 days Ambulatory/Diagnostic Orders: Basic Metabolic Panel [LAB.AMB] Time Frame: 3 Days, Location: None Selected Complete Blood Count w/diff [LAB.AMB] Time Frame: 3 Days, Location: None Selected Activity/Diet/Wound Care/Special Instructions: Patient is going to [facility] Activity as tolerated Continue current diet Follow-up with primary care provider upon discharge Discharge Disposition: TRANSFER TO SNF/F
--- NOTE | 2020-01-16 09:35 | P.PN ---
Subjective Progress Note Date: 01/14/20 Principal diagnosis: Anemia Mr. Davila is a 68-year-old male with a past medical history of GERD, hypertension, hyperlipidemia, coronary artery disease, seizure disorder, severe anemia needing blood transfusion, diastolic congestive heart failure, atrial fibrillation, history of C. diff infection,who is a resident of [facility] brought in by the EMS for low blood pressure, fever of 101, also patient found to have low hemoglobin of 7.4, repeated was 6.7, patient got 1 unit of blood transfusion and his hemoglobin up to 8.8. Patient himself states that he did not have any complai nts other than mild epistaxis for short time, he said that he routinely they checked his blood and his hemoglobin was low that is why he sent to the hospital. He complains from chronic left shoulder pain for the last 3 years. Blood pressure was good throughout his stay in ED yesterday, currently 121/64, rest of vitals are stable, no fever documented. Hemoglobin is up at 8.8 (was 6.7 on admission), WBC and platelets are normal. Creatinine slightly up at 1.6 and 1.5, baseline ends 1.2-1.4 EKG showing atrial fibrillation at rate of [address] T changes: Chest x-ray: No acute process and Advanced pulmonary fibrosis MAPS were checked and he was taking Ultram 50 mg 4 times a day and Xanax 0.25 twice a day as needed, we ordered his home medication 01/13/2020 Patient is currently lying in the bed comfortably. Patient is status post blood transfusion hemoglobin level went up to 8.8 and dropping to 8.2 currently. BUN 31 and creatinine 1.35. Iron profile showed saturation 12.3 and iron 26 and TIBC 210 and ferritin is 1877. GI is following. No complaints of hematemesis or melena. Tolerating oral diet. Currently saturating well on 2 L oxygen via nasal cannula. No complaints of chest pain or worsening shortness of breath. No fever no chills. Current medications reviewed. 01/14/2020 Patient is seen and evaluated in follow-up in no acute distress. No acute overnight issues. Patient is currently receiving iron transfusion and normally takes iron supplements daily. Patient to receive another dose of iron via IV tomorrow. Current hemoglobin is 8.3 with no bleeding noted. Patient has no reports of chest pain, shortness of breath, or palpitations. Patient is afebrile. Reports of nausea or vomiting and patient is tolerating diet. Current sodium is 137 with a potassium of 4.0. BUN trending down at 27 and creatinine is 1.37. Will continue to monitor closely. Covid 19 testing is negative Objective - Vital Signs Vital signs: Vital Signs Temp 97.5 F L 01/15/20 12:06 Pulse 78 01/15/20 14:53 Resp 16 01/15/20 12:06 BP 152/73 01/15/20 12:06 Pulse Ox 98 01/15/20 01:48 Intake & Output 01/15/20 01/16/20 01/16/20 18:59 06:59 18:59 Other: Voiding Method Toilet Urinal - Exam GENERAL: The patient is alert and oriented x3, not in any acute distress. Cachectic HEENT: Pupils are round and equally reacting to light. EOMI. No scleral icterus. No conjunctival pallor. Normocephalic, atraumatic. No pharyngeal erythema. No thyromegaly. CARDIOVASCULAR: S1 and S2 present. No murmurs, rubs, or gallops. PULMONARY: Chest is clear to auscultation. Bilateral crepitations ABDOMEN: Soft, nontender, nondistended, normoactive bowel sounds. No palpable organomegaly. MUSCULOSKELETAL: No joint swelling or deformity. EXTREMITIES: No cyanosis, clubbing, or pedal edema. NEUROLOGICAL: Gross neurological examination did not reveal any focal deficits. SKIN: No rashes. No petechiae - Labs CBC & Chem 7: 01/15/20 07:33 01/15/20 07:33 Labs: Microbiology - Last 24 Hours (Table) 01/11/20 22:18 Blood Culture - Preliminary Blood No Growth after 96 hours Assessment and Plan Assessment: Acute blood loss anemia, ruled out GI bleed, his status post one unit of blood transfusion. FOBT negative Epistaxis, resolved Covid 19 ruled out, testing is negative Hypotension on admission, improved History of fever, no more fevers since admission, we'll keep monitoring, urine and blood cultures are negative History of C. diff Pulmonary fibrosis Hypertension Hyperlipidemia Seizure disorder Severe anemia needing a blood transfusion during recent admission Chronic CHF with diastolic dysfunction. DVT prophylaxis: Early ambulation GI Prophylaxis: Protonix Plan: This is a pleasant 69 years old male who presents with acute blood loss anemia, possible GI bleed. Hypotension improved. Urinalysis was negative. Continue with Protonix twice a day. GI following with no interventions scheduled at this time. Patient further to think about palliative care. We'll continue with iron transfusions. Case management and social work following his patient is return to [facility] as he is a resident there once stabilized. Globin today was 8.2 and will repeat a.m. labs to monitor hemoglobin. No episodes of bleeding noted. Continue same treatment. Continue with symptomatic treatment. Resume home medication. Monitor lytes and vitals. DVT and GI prophylaxis. Further recommendations of the clinical course of the patient. Covid 19 testing is negative. Due to multiple complex medical issues, prognosis is guarded. Anticipate discharge in 24 hours.
== END 2020-01-15 13:52 | DRG 151 ==
LOC: EC 21:28 → 4SSUR 22:41
PROVIDERS: ADMIT Internal Medicine; ATTEND Internal Medicine
PROC: 30233N1 Transfusion of Nonautologous Red Blood Cells into Peripheral Vein, Percutaneous Approach (ICD-10-PCS; principal; 2020-01-11)
DX: R04.0 Epistaxis (principal); D62 Acute posthemorrhagic anemia; I50.32 Chronic diastolic (congestive) heart failure; J96.10 Chronic respiratory failure, unspecified whether with hypoxia or hypercapnia; I13.0 Hypertensive heart and chronic kidney disease with heart failure and stage 1 through stage 4 chronic kidney disease, or unspecified chronic kidney disease; I48.91 Unspecified atrial fibrillation; J44.9 Chronic obstructive pulmonary disease, unspecified; J84.10 Pulmonary fibrosis, unspecified; N18.3 Chronic kidney disease, stage 3 (moderate); Z87.891 Personal history of nicotine dependence; Z74.01 Bed confinement status; Z11.59 Encounter for screening for other viral diseases; I95.9 Hypotension, unspecified; I69.392 Facial weakness following cerebral infarction; I69.331 Monoplegia of upper limb following cerebral infarction affecting right dominant side; I69.328 Other speech and language deficits following cerebral infarction; K57.90 Diverticulosis of intestine, part unspecified, without perforation or abscess without bleeding; N28.1 Cyst of kidney, acquired; Z87.442 Personal history of urinary calculi; Z99.81 Dependence on supplemental oxygen; M54.5 Low back pain; G25.81 Restless legs syndrome; Z98.42 Cataract extraction status, left eye; Z98.41 Cataract extraction status, right eye; Z96.1 Presence of intraocular lens; Z88.8 Allergy status to other drugs, medicaments and biological substances; Z79.899 Other long term (current) drug therapy; Z79.890 Hormone replacement therapy; Z79.51 Long term (current) use of inhaled steroids; I25.2 Old myocardial infarction; D50.9 Iron deficiency anemia, unspecified; E11.22 Type 2 diabetes mellitus with diabetic chronic kidney disease; E78.5 Hyperlipidemia, unspecified; G40.909 Epilepsy, unspecified, not intractable, without status epilepticus; G89.29 Other chronic pain; I25.10 Atherosclerotic heart disease of native coronary artery without angina pectoris; Z80.1 Family history of malignant neoplasm of trachea, bronchus and lung; Z85.038 Personal history of other malignant neoplasm of large intestine; Z85.118 Personal history of other malignant neoplasm of bronchus and lung; Z87.11 Personal history of peptic ulcer disease; Z86.19 Personal history of other infectious and parasitic diseases
CPT/HCPCS: 36415; 36430; 71045; 80048; 80053; 81003; 82272; 82728; 83540; 83550; 83605; 83735; 83880; 85025; 85027; 85610; 85730; 86850; 86900; 86901; 86920; 87040; 87635; 93005; 94640; 99285